=== PATIENT | female | born 1945 | race Caucasian/White ===

== ENCOUNTER 2020-08-09 08:27 | Outpatient (REF) | payer MEDICARE, MEDICAID, SELFPAY ==
[2020-08-09 10:11] LABS: MANUAL DIFF FLAG NO
[2020-08-09 10:25] LABS: Basophils Percent Auto 0.7 % (0-2); Eosinophils Absolute Auto 0.1 X10*3/uL (0.0-0.4); Hematocrit 32.7 % (37-47); Hemoglobin 10.3 g/dl (12.0-16.0); Imm Gran Abs Auto 0.01 X10*3/uL (0.00-0.03); Imm Gran Pct Auto 0.2 % (0.0-0.4); Lymphocytes Absolute Auto 0.9 X10*3/uL (1.2-4.9); Lymphocytes Percent Auto 20.3 % (20-40); Mean Corpuscular HGB Conc 31.5 g/dl (31.0-35.0); Mean Corpuscular Hemoglobin 29.6 pg (27.0-33.0); Mean Platelet Volume 9.8 fL (9.4-12.3); Monocytes Absolute Auto 0.6 X10*3/uL (0.1-1.2); Monocytes Percent Auto 12.8 % (2-11); Neutrophils Absolute Auto 2.7 X10*3/uL (2.0-8.3); Platelet Count 245 X10*3/uL (160-400); Red Blood Count 3.48 X10*6/uL (4.20-5.50); Red Cell Distribution Width 15.1 % (11.0-16.0); White Blood Count 4.3 X10*3/uL (4.8-10.8)
[2020-08-09 10:26] LABS: Estimated Average Glucose 151 mg/dL; Hemoglobin A1c % 6.9 %
[2020-08-09 10:50] LABS: Alanine Aminotransferase 12 U/L (0-31); Albumin Level 3.8 g/dL (3.5-5.0); Alkaline Phosphatase 72 U/L (39-117); Anion Gap 14 (12-20); Aspartate Amino Transferase 13 U/L (5-31); Bilirubin Total 0.5 mg/dL (0.0-1.0); Blood Urea Nitrogen 32 mg/dL (9-16); Calcium 8.4 mg/dL (8.4-10.2); Carbon Dioxide 23 mmol/L (22-29); Chloride 107 mmol/L (96-108); Estimated Glomerular Filt Rate 27; Glucose Random 163 mg/dL (60-115); Potassium 4.2 mmol/l (3.3-5.1); Sodium 140 mmol/L (135-145); Total Protein 6.7 g/dL (6.5-8.0)
[2020-08-09 11:34] LABS: Creatinine Urine 109.71 mg/dL; Microalbum/Creatinine Ratio Ur 29.1 ug/mg cr
== END 2020-08-09 08:28 | disposition home or self-care (01) ==
LOC: HO.10HDL 08:27
PROVIDERS: Visit Provider Internal Medicine
DX: E11.9 Type 2 diabetes mellitus without complications (principal); D64.9 Anemia, unspecified; I25.10 Atherosclerotic heart disease of native coronary artery without angina pectoris
CPT/HCPCS: 36415; 80053; 82043; 83036; 85025

== ENCOUNTER 2020-08-27 10:03 | Outpatient (REF) | payer MEDICARE, MEDICAID, SELFPAY ==
[2020-08-27 10:26] LABS: MANUAL DIFF FLAG NO
[2020-08-27 10:32] LABS: Basophils Percent Auto 0.6 % (0-2); Eosinophils Absolute Auto 0.1 X10*3/uL (0.0-0.4); Eosinophils Percent Auto 2.8 % (0-4); Hematocrit 34.3 % (37-47); Hemoglobin 10.9 g/dl (12.0-16.0); Imm Gran Abs Auto 0.01 X10*3/uL (0.00-0.03); Imm Gran Pct Auto 0.2 % (0.0-0.4); Lymphocytes Percent Auto 19.1 % (20-40); Mean Corpuscular HGB Conc 31.8 g/dl (31.0-35.0); Mean Corpuscular Hemoglobin 29.9 pg (27.0-33.0); Mean Corpuscular Volume 94.2 fL (80-98); Mean Platelet Volume 9.3 fL (9.4-12.3); Monocytes Absolute Auto 0.6 X10*3/uL (0.1-1.2); Monocytes Percent Auto 10.8 % (2-11); Neutrophils Absolute Auto 3.4 X10*3/uL (2.0-8.3); Neutrophils Percent Auto 66.5 % (45-73); Platelet Count 251 X10*3/uL (160-400); Red Blood Count 3.64 X10*6/uL (4.20-5.50); Red Cell Distribution Width 15.1 % (11.0-16.0); White Blood Count 5.1 X10*3/uL (4.8-10.8)
[2020-08-27 10:55] LABS: Anion Gap 14 (12-20); Blood Urea Nitrogen 25 mg/dL (9-16); Calcium 8.3 mg/dL (8.4-10.2); Carbon Dioxide 24 mmol/L (22-29); Chloride 108 mmol/L (96-108); Estimated Glomerular Filt Rate 29; Glucose Fasting 157 mg/dL (60-99); Potassium 4.3 mmol/l (3.3-5.1); Sodium 142 mmol/L (135-145)
[2020-08-27 11:11] LABS: Estimated Average Glucose 148 mg/dL; Hemoglobin A1C 149.1517 umol/L; Hemoglobin A1c % 6.8 %
== END 2020-08-27 10:04 | disposition home or self-care (01) ==
LOC: HO.10HDL 10:03
PROVIDERS: Visit Provider Internal Medicine
DX: E11.22 Type 2 diabetes mellitus with diabetic chronic kidney disease (principal); D64.9 Anemia, unspecified; I12.9 Hypertensive chronic kidney disease with stage 1 through stage 4 chronic kidney disease, or unspecified chronic kidney disease; N18.9 Chronic kidney disease, unspecified; I25.10 Atherosclerotic heart disease of native coronary artery without angina pectoris
CPT/HCPCS: 36415; 80048; 83036; 85025

== ENCOUNTER → 2020-08-28 14:17 | Outpatient (BNVA) | payer MEDICARE, MEDICAID, SELFPAY | PROVIDERS: PCP Internal Medicine; Referring Provider Internal Medicine; Visit Provider Internal Medicine | DX: J43.9 Emphysema, unspecified (principal); R09.02 Hypoxemia | CPT/HCPCS: 99212 ==

== ENCOUNTER 2020-09-14 07:46 | Outpatient (REF) | payer MEDICARE, MEDICAID, SELFPAY ==
--- NOTE | 2020-09-14 07:50 | MM_ITS ---
EXAMINATION: MM SCREENING DIGITAL BREAST TOMOSYNTHESIS, BILATERAL CLINICAL INFORMATION: Screening. Asymptomatic. The lifetime risk of breast cancer based on the Tyrer-Cuzick Model is 8%. COMPARISON: Mammography: 09/09/2019, 08/04/2018 TECHNIQUE: Digital breast tomosynthesis is performed in both the craniocaudal and mediolateral oblique views along with computer-aided detection (CAD). Synthesized 2D images are generated from the tomosynthesis. FINDINGS: There are scattered areas of fibroglandular density (ACR BI-RADS breast composition Category b). There are no significant masses, abnormal calcifications, or other abnormalities. Skin contours are smooth. No significant changes. MM/MM tomosynthesis screening BI IMPRESSION: No mammographic evidence of malignancy. ASSESSMENT: BI-RADS 1: Negative RECOMMENDATION: Routine annual mammography screening. This patient's information was entered into a reminder system with a target due date for their next mammogram.
== END 2020-09-14 07:47 | disposition home or self-care (01) ==
LOC: HO.MAMMO 07:46
PROVIDERS: PCP Internal Medicine; Visit Provider Internal Medicine
DX: Z12.31 Encounter for screening mammogram for malignant neoplasm of breast (principal)
CPT/HCPCS: 77063; 77067

== ENCOUNTER 2020-12-02 11:42 | Outpatient (REF) | payer MEDICARE, MEDICAID, SELFPAY ==
[2020-12-02 13:52] LABS: MANUAL DIFF FLAG NO
[2020-12-02 13:59] LABS: Basophils Absolute Auto 0.1 X10*3/uL (0.0-0.2); Basophils Percent Auto 0.8 % (0-2); Eosinophils Absolute Auto 0.1 X10*3/uL (0.0-0.4); Eosinophils Percent Auto 1.9 % (0-4); Hematocrit 36.5 % (37-47); Hemoglobin 11.6 g/dl (12.0-16.0); Imm Gran Abs Auto 0.02 X10*3/uL (0.00-0.03); Imm Gran Pct Auto 0.3 % (0.0-0.4); Lymphocytes Absolute Auto 1.1 X10*3/uL (1.2-4.9); Lymphocytes Percent Auto 17.8 % (20-40); Mean Corpuscular HGB Conc 31.8 g/dl (31.0-35.0); Mean Corpuscular Hemoglobin 29.7 pg (27.0-33.0); Mean Corpuscular Volume 93.6 fL (80-98); Mean Platelet Volume 9.9 fL (9.4-12.3); Monocytes Absolute Auto 0.6 X10*3/uL (0.1-1.2); Monocytes Percent Auto 8.8 % (2-11); Neutrophils Absolute Auto 4.4 X10*3/uL (2.0-8.3); Neutrophils Percent Auto 70.4 % (45-73); Platelet Count 255 X10*3/uL (160-400); Red Cell Distribution Width 13.8 % (11.0-16.0); White Blood Count 6.2 X10*3/uL (4.8-10.8)
[2020-12-02 14:35] LABS: Estimated Average Glucose 220 mg/dL; Hemoglobin A1c % 9.3 %
[2020-12-02 14:39] LABS: Alanine Aminotransferase 15 U/L (0-31); Albumin Level 3.8 g/dL (3.5-5.0); Alkaline Phosphatase 95 U/L (39-117); Anion Gap 14 (12-20); Aspartate Amino Transferase 19 U/L (5-31); Bilirubin Total 0.3 mg/dL (0.0-1.0); Blood Urea Nitrogen 22 mg/dL (9-16); Calcium 9.2 mg/dL (8.4-10.2); Carbon Dioxide 23 mmol/L (22-29); Chloride 107 mmol/L (96-108); Estimated Glomerular Filt Rate 31; Glucose Random 196 mg/dL (60-115); Potassium 4.9 mmol/L (3.3-5.1); Sodium 139 mmol/L (135-145); Total Protein 7.1 g/dL (6.5-8.0)
== END 2020-12-02 11:43 | disposition home or self-care (01) ==
LOC: HO.10HDL 11:42
PROVIDERS: Visit Provider Internal Medicine
DX: E11.22 Type 2 diabetes mellitus with diabetic chronic kidney disease (principal); I12.9 Hypertensive chronic kidney disease with stage 1 through stage 4 chronic kidney disease, or unspecified chronic kidney disease; N18.9 Chronic kidney disease, unspecified; I25.10 Atherosclerotic heart disease of native coronary artery without angina pectoris
CPT/HCPCS: 36415; 80053; 83036; 85025

== ENCOUNTER 2021-01-06 11:11 | Outpatient (REF) | payer MEDICARE, MEDICAID, SELFPAY ==
[2021-01-06 12:29] LABS: Anion Gap 14 (12-20); Blood Urea Nitrogen 23 mg/dL (9-16); Calcium 8.7 mg/dL (8.4-10.2); Carbon Dioxide 22 mmol/L (22-29); Chloride 104 mmol/L (96-108); Estimated Glomerular Filt Rate 29; Glucose Fasting 286 mg/dL (60-99); Potassium 5.1 mmol/L (3.3-5.1); Sodium 135 mmol/L (135-145)
== END 2021-01-06 11:12 | disposition home or self-care (01) ==
LOC: HO.10HDL 11:11
PROVIDERS: Visit Provider Internal Medicine
DX: R79.89 Other specified abnormal findings of blood chemistry (principal)
CPT/HCPCS: 36415; 80048

== ENCOUNTER → 2021-01-07 10:35 | Outpatient (BNVA) | payer MEDICARE, MEDICAID, SELFPAY | PROVIDERS: PCP Internal Medicine; Visit Provider Internal Medicine | DX: J43.9 Emphysema, unspecified (principal); R09.02 Hypoxemia; Z87.891 Personal history of nicotine dependence | CPT/HCPCS: 99212 ==

== ENCOUNTER → 2021-01-17 11:01 | Outpatient (BNVA) | payer MEDICARE, MEDICAID, SELFPAY | PROVIDERS: PCP Internal Medicine; Visit Provider Surgery | DX: C34.90 Malignant neoplasm of unspecified part of unspecified bronchus or lung (principal) | CPT/HCPCS: 99212 ==

== ENCOUNTER 2021-02-25 08:33 | Outpatient (REF) | payer MEDICARE, MEDICAID, SELFPAY ==
[2021-02-25 10:20] LABS: MANUAL DIFF FLAG NO
[2021-02-25 10:24] LABS: Basophils Percent Auto 0.7 % (0-2); Eosinophils Absolute Auto 0.1 X10*3/uL (0.0-0.4); Eosinophils Percent Auto 1.6 % (0-4); Hemoglobin 11.7 g/dl (12.0-16.0); Imm Gran Abs Auto 0.03 X10*3/uL (0.00-0.03); Imm Gran Pct Auto 0.5 % (0.0-0.4); Lymphocytes Absolute Auto 1.2 X10*3/uL (1.2-4.9); Lymphocytes Percent Auto 21.4 % (20-40); Mean Corpuscular HGB Conc 32.5 g/dl (31.0-35.0); Mean Corpuscular Hemoglobin 30.1 pg (27.0-33.0); Mean Corpuscular Volume 92.5 fL (80-98); Monocytes Absolute Auto 0.6 X10*3/uL (0.1-1.2); Monocytes Percent Auto 11.4 % (2-11); Neutrophils Absolute Auto 3.6 X10*3/uL (2.0-8.3); Neutrophils Percent Auto 64.4 % (45-73); Platelet Count 257 X10*3/uL (160-400); Red Blood Count 3.89 X10*6/uL (4.20-5.50); Red Cell Distribution Width 14.1 % (11.0-16.0); White Blood Count 5.6 X10*3/uL (4.8-10.8)
[2021-02-25 10:32] LABS: Estimated Average Glucose 280 mg/dL; Hemoglobin A1c % 11.4 %
[2021-02-25 10:56] LABS: Alanine Aminotransferase 15 U/L (0-31); Albumin Level 3.7 g/dL (3.5-5.0); Alkaline Phosphatase 133 U/L (39-117); Anion Gap 15 (12-20); Aspartate Amino Transferase 16 U/L (5-31); Bilirubin Total 0.3 mg/dL (0.0-1.0); Blood Urea Nitrogen 29 mg/dL (9-16); Calcium 9.1 mg/dL (8.4-10.2); Carbon Dioxide 23 mmol/L (22-29); Chloride 103 mmol/L (96-108); Estimated Glomerular Filt Rate 23; Glucose Fasting 438 mg/dL (60-99); Potassium 4.6 mmol/L (3.3-5.1); Sodium 136 mmol/L (135-145); Total Protein 6.8 g/dL (6.5-8.0)
[2021-02-25 10:58] LABS: Creatinine Urine 55.51 mg/dL; Microalbum/Creatinine Ratio Ur 25.2 ug/mg cr
== END 2021-02-25 08:34 | disposition home or self-care (01) ==
LOC: HO.10HDL 08:33
PROVIDERS: Visit Provider Internal Medicine
DX: I12.9 Hypertensive chronic kidney disease with stage 1 through stage 4 chronic kidney disease, or unspecified chronic kidney disease (principal); N18.9 Chronic kidney disease, unspecified; E11.22 Type 2 diabetes mellitus with diabetic chronic kidney disease; J44.9 Chronic obstructive pulmonary disease, unspecified
CPT/HCPCS: 36415; 80053; 82043; 83036; 85025

== ENCOUNTER 2021-06-18 10:26 | Outpatient (REF) | payer MEDICARE, MEDICAID, SELFPAY ==
[2021-06-18 14:34] LABS: Anion Gap 18 (12-20); Blood Urea Nitrogen 16 mg/dL (9-16); Calcium 8.8 mg/dL (8.4-10.2); Carbon Dioxide 19 mmol/L (22-29); Chloride 108 mmol/L (96-108); Estimated Glomerular Filt Rate 33; Glucose Random 247 mg/dL (60-115); Potassium 4.5 mmol/L (3.3-5.1); Sodium 140 mmol/L (135-145)
== END 2021-06-18 10:27 | disposition home or self-care (01) ==
LOC: HO.10HDL 10:26
PROVIDERS: Visit Provider Nurse Practitioner Family
DX: I25.10 Atherosclerotic heart disease of native coronary artery without angina pectoris (principal)
CPT/HCPCS: 36415; 80048

== ENCOUNTER → 2021-07-17 10:10 | Outpatient (BNVA) | payer MEDICARE, MEDICAID, SELFPAY | PROVIDERS: PCP Internal Medicine; Visit Provider Internal Medicine | DX: R09.02 Hypoxemia (principal); C34.10 Malignant neoplasm of upper lobe, unspecified bronchus or lung; J44.9 Chronic obstructive pulmonary disease, unspecified | CPT/HCPCS: 99212 ==

== ENCOUNTER 2021-08-05 11:23 | Outpatient (REF) | payer MEDICARE, MEDICAID, SELFPAY ==
[2021-08-05 13:56] LABS: MANUAL DIFF FLAG NO
[2021-08-05 14:00] LABS: Basophils Percent Auto 0.6 % (0-2); Eosinophils Absolute Auto 0.2 X10*3/uL (0.0-0.4); Eosinophils Percent Auto 2.6 % (0-4); Hematocrit 39.7 % (37-47); Hemoglobin 12.7 g/dl (12.0-16.0); Imm Gran Abs Auto 0.02 X10*3/uL (0.00-0.03); Imm Gran Pct Auto 0.3 % (0.0-0.4); Lymphocytes Absolute Auto 1.5 X10*3/uL (1.2-4.9); Mean Corpuscular Hemoglobin 30.7 pg (27.0-33.0); Mean Corpuscular Volume 95.9 fL (80-98); Mean Platelet Volume 9.8 fL (9.4-12.3); Monocytes Absolute Auto 0.7 X10*3/uL (0.1-1.2); Monocytes Percent Auto 11.4 % (2-11); Neutrophils Absolute Auto 3.8 X10*3/uL (2.0-8.3); Neutrophils Percent Auto 61.1 % (45-73); Platelet Count 278 X10*3/uL (160-400); Red Blood Count 4.14 X10*6/uL (4.20-5.50); Red Cell Distribution Width 14.1 % (11.0-16.0); White Blood Count 6.2 X10*3/uL (4.8-10.8)
[2021-08-05 14:14] LABS: Estimated Average Glucose 232 mg/dL; Hemoglobin A1c % 9.7 %
[2021-08-05 14:16] LABS: Alanine Aminotransferase 15 U/L (0-31); Albumin Level 3.9 g/dL (3.5-5.0); Alkaline Phosphatase 91 U/L (39-117); Anion Gap 16 (12-20); Aspartate Amino Transferase 16 U/L (5-31); Bilirubin Total 0.3 mg/dL (0.0-1.0); Blood Urea Nitrogen 16 mg/dL (9-16); Calcium 9.2 mg/dL (8.4-10.2); Carbon Dioxide 21 mmol/L (22-29); Chloride 106 mmol/L (96-108); Estimated Glomerular Filt Rate 35; Glucose Random 230 mg/dL (60-115); Potassium 4.7 mmol/L (3.3-5.1); Sodium 138 mmol/L (135-145); Total Protein 7.2 g/dL (6.5-8.0)
[2021-08-05 14:25] LABS: Creatinine Urine 91.44 mg/dL; Microalbum/Creatinine Ratio Ur 53.5 ug/mg cr
== END 2021-08-05 11:24 | disposition home or self-care (01) ==
LOC: HO.10HDL 11:23
PROVIDERS: Absent Provider Nurse Practitioner Family; Visit Provider Internal Medicine
DX: I25.10 Atherosclerotic heart disease of native coronary artery without angina pectoris (principal); I13.0 Hypertensive heart and chronic kidney disease with heart failure and stage 1 through stage 4 chronic kidney disease, or unspecified chronic kidney disease; E11.22 Type 2 diabetes mellitus with diabetic chronic kidney disease; I50.9 Heart failure, unspecified; N18.9 Chronic kidney disease, unspecified
CPT/HCPCS: 36415; 80053; 82043; 83036; 85025

== ENCOUNTER → 2021-08-08 10:21 | Outpatient (BNVA) | payer MEDICARE, MEDICAID, SELFPAY | PROVIDERS: PCP Internal Medicine; Visit Provider Surgery | DX: C34.12 Malignant neoplasm of upper lobe, left bronchus or lung (principal); Z79.899 Other long term (current) drug therapy; Z92.21 Personal history of antineoplastic chemotherapy; Z92.3 Personal history of irradiation | CPT/HCPCS: 99212 ==

== ENCOUNTER 2021-08-14 14:10 | Outpatient (REF) | payer MEDICARE, MEDICAID, SELFPAY ==
--- NOTE | ~2021-08-14 | US_ITS ---
EXAMINATION: US RETROPERITONEAL LIMITED (RENAL ONLY) CLINICAL INFORMATION: Chronic kidney disease. COMPARISON: None TECHNIQUE: Real-time imaging of the kidneys. FINDINGS: RIGHT KIDNEY: 11.5 x 5.2 x 3.9 cm (SAG x AP x TRV). The kidney is normal in size, contour, and echogenicity. Renal cortical thickness is normal. No renal calculi or hydronephrosis. There are prominent pyramids. An anechoic simple cyst is seen in midpole measuring 1.4 x 1.2 x 1.1 cm. LEFT KIDNEY: 9.0 x 4.3 x 3.7 cm (SAG x AP x TRV). The kidney is normal in size, contour, and echogenicity. Renal cortical thickness is normal. No renal calculi or hydronephrosis. A Bosniak type II cyst with septations is seen in midpole measuring 3.2 x 2.4 x 2.6 cm. US/US renal BI IMPRESSION: Prominent pyramids right kidney with an anechoic cyst. No echogenic stone or hydronephrosis. Bosniak type II complex cyst midpole left kidney. No echogenic stones or caliectasis.
== END 2021-08-14 14:11 | disposition home or self-care (01) ==
LOC: HO.US 14:10
PROVIDERS: PCP Internal Medicine; Visit Provider Psychiatry & Neurology Neurology
DX: N18.32 Chronic kidney disease, stage 3b (principal)
CPT/HCPCS: 76775

== ENCOUNTER 2021-09-25 10:09 | Outpatient (REF) | payer MEDICARE, MEDICAID, SELFPAY ==
--- NOTE | ~2021-09-25 | MM_ITS ---
EXAMINATION: MM SCREENING DIGITAL BREAST TOMOSYNTHESIS, BILATERAL CLINICAL INFORMATION: Screening. Asymptomatic. The lifetime risk of breast cancer based on the Tyrer-Cuzick Model is 7%. COMPARISON: Mammography: 09/14/2020, 09/09/2019, 08/04/2018 TECHNIQUE: Digital breast tomosynthesis is performed in both the craniocaudal and mediolateral oblique views along with computer-aided detection (CAD). Synthesized 2D images are generated from the tomosynthesis. FINDINGS: There are scattered areas of fibroglandular density (ACR BI-RADS breast composition Category b). There are no significant masses, abnormal calcifications, or other abnormalities. There is fine fibronodular parenchymal pattern similar to prior studies. No developing density. MM/MM tomosynthesis screening BI IMPRESSION: No mammographic evidence of malignancy. ASSESSMENT: BI-RADS 1: Negative RECOMMENDATION: Routine annual mammography screening. This patient's information was entered into a reminder system with a target due date for their next mammogram.
== END 2021-09-25 10:10 | disposition home or self-care (01) ==
LOC: HO.MAMMO 10:09
PROVIDERS: Visit Provider Internal Medicine
DX: Z12.31 Encounter for screening mammogram for malignant neoplasm of breast (principal)
CPT/HCPCS: 77063; 77067

== ENCOUNTER 2021-11-05 09:56 | Outpatient (REF) | payer MEDICARE, MEDICAID, SELFPAY ==
[2021-11-05 14:23] LABS: Estimated Average Glucose 240 mg/dL
[2021-11-05 14:24] LABS: Alanine Aminotransferase 17 U/L (0-31); Albumin Level 3.7 g/dL (3.5-5.0); Alkaline Phosphatase 105 U/L (39-117); Anion Gap 12 (12-20); Aspartate Amino Transferase 19 U/L (5-31); Bilirubin Total 0.5 mg/dL (0.0-1.0); Blood Urea Nitrogen 22 mg/dL (9-16); Calcium 9.3 mg/dL (8.4-10.2); Carbon Dioxide 24 mmol/L (22-29); Chloride 105 mmol/L (96-108); Estimated Glomerular Filt Rate 28; Glucose Random 277 mg/dL (60-115); Potassium 4.4 mmol/L (3.3-5.1); Sodium 137 mmol/L (135-145)
[2021-11-05 14:43] LABS: Creatinine Urine 55.75 mg/dL; Microalbum/Creatinine Ratio Ur 16.1 ug/mg cr
[2021-11-05 14:47] LABS: Vitamin D 25-OH Total 14.5 ng/mL (>30)
== END 2021-11-05 09:57 | disposition home or self-care (01) ==
LOC: HO.10HDL 09:56
PROVIDERS: Visit Provider Internal Medicine
DX: E11.22 Type 2 diabetes mellitus with diabetic chronic kidney disease (principal); N18.9 Chronic kidney disease, unspecified; I25.10 Atherosclerotic heart disease of native coronary artery without angina pectoris; E55.9 Vitamin D deficiency, unspecified
CPT/HCPCS: 36415; 80053; 82043; 82306; 83036

== ENCOUNTER → 2021-11-12 09:54 | Outpatient (BNVA) | payer MEDICARE, MEDICAID, SELFPAY | PROVIDERS: PCP Internal Medicine; Referring Provider Internal Medicine; Visit Provider Internal Medicine Cardiovascular Disease ==

== ENCOUNTER → 2021-11-14 13:47 | Outpatient (REF) | payer MEDICARE, MEDICAID, SELFPAY ==
--- NOTE | 2021-11-14 13:57 | CA_ITS ---
Transthoracic Echocardiogram Patient (Last, First, Middle): Anjana Silva R Gender: Female Date of : 1945 Age: 76 Procedure Date: 11/14/2021 Procedure Type: Transthoracic Echocardiogram Location: OP Height: 154.94 cm Weight: 73.03 kg BSA: 1.72 m2 Heart Rate: bpm BP: 120 / 80 mmHg Branch Retail Executive: MARIO Referring MD: Terell Macias MD Symptoms: I50.20 - Unspecified systolic (congestive) heart failure Study Quality: Fair Conclusions: - Normal left ventricular cavity size. There is mildly increased left ventricular wall thickness. The left ventricular systolic function is mild to moderately decreased. The visually estimated ejection fraction is between 35-40%. - The inferoseptal wall, inferior wall, inferolateral wall, and apical septum segment are akinetic. - Normal right ventricular cavity size and systolic function. Findings Left Ventricle Normal left ventricular cavity size. There is mildly increased left ventricular wall thickness. The left ventricular systolic function is mild to moderately decreased. The visually estimated ejection fraction is between 35-40%. There is no evidence of regional wall motion abnormalities. Abnormal diastolic function is noted. Spectral Doppler is indicative of an impaired relaxation filling pattern. E/E prime ratio is between 8 and 15 consistent with indeterminate filling pressures. Wall Motion Rest Echo Findings The inferoseptal wall, inferior wall, inferolateral wall, and apical septum segment are akinetic. Right Ventricle Normal right ventricular cavity size and systolic function. Atria The left atrium was not well visualized. Aortic Valve There is a normal trileaflet aortic valve. There is mild calcification of the aortic valve. There is no aortic valve stenosis. There is no aortic valve regurgitation. Mitral Valve The mitral valve appears normal. There is mild mitral valve regurgitation. There is no mitral valve stenosis. Pulmonic Valve The pulmonic valve was not well visualized. Tricuspid Valve Normal tricuspid valve structure and function. There is trace tricuspid valve regurgitation. Normal right atrial pressure. There is no evidence of pulmonary hypertension. Great Vessels All visible segments of the aorta are normal in size. Venous The inferior vena cava is normal in size and collapses less than 50% with inspiration. Pericardium/Pleural There is no evidence of pericardial effusion. Prior Study Comparison No significant change compared to prior study dated: 01/19/2018. Measurements 2D Linear Measurements IVSd: 1.10 0.6-0.9/0.6-1.0 cm LVIDd: 5.53 3.9-5.3/4.2-5.9 cm LVIDd Index: 3.22 2.4-3.2/2.2-3.1 cm/m2 LVIDs: 4.64 2.0-3.6 cm LVPWd: 1.04 0.7-1.1 cm Ao Root: 3.00 2.1-3.5 cm LA Diam: 3.60 2.7-3.8/3.0-4.0 cm LAIDs Index: 2.09 1.5-2.3 cm/m2 LV Mass: 293.39 67-162/88-224 g LV Mass Index: 170.58 43-95/49-115 g/m2 LVOT Diam: 2.00 3.0+(-)1.3 cm 2D Systolic Function EF 4C: 33.50 >55% EF 2C: 34.60 >55% EF BiP: 33.90 >55% Mitral Valve MV Pk E: 0.52 MV PK A: 1.05 MV Decel Time: 153.00 E/A: 0.50 E'Lateral: 4.35 E'Medial: 3.26 E/E' Med: 15.90 E/E' Lat: 11.90 PHT: 45.00 MVA PHT: 4.89 Decel [place]: 3.39 Aortic Valve AoV Pk Ethan: 1.35 AoV Mn Ethan: 1.04 AoV VTI: 0.29 AoV Pk Grad: 7.00 Aov Mn Grad: 5.00 RANDALL Cont.VTI: 1.72 LVOT LVOT Pk Ethan: 0.81 LVOT Mn Ethan: 0.60 LVOT VTI: 0.16 LVOT Pk Grad: 3.00 LVOT Mn Grad: 2.00 LVOT Diam: 2.00 LVOT Area: 3.14 Diastolic Function MV Pk E: 0.52 MV Pk A: 1.05 E/A: 0.50 E'Medial: 3.26 E/E' Med: 15.90 E' Laterial: 4.35 E/E' Lat: 11.90 Right Ventricle TAPSE (mm): 18.80 TVS' Ethan: 12.20 Tricuspid Valve TR Pk Ethan: 2.01 TR Pk Grad: 16.00 RA Press: 3.00 RVSP: 19.00 Great Vessels Aorta Ao Root-2D: 3.00 2.0-3.7 cm Ao Asc: 3.10 2.1-3.4 cm Ao Arch: 2.60 Updated in Other Vendor System with Status of Final Josh Cain MD electronically signed on 11/15/2021 7:14:35 PM with status of Final
== END ==
LOC: HO.CARD 13:47
PROVIDERS: PCP Internal Medicine; Visit Provider Internal Medicine Cardiovascular Disease
DX: I50.20 Unspecified systolic (congestive) heart failure (principal); I25.10 Atherosclerotic heart disease of native coronary artery without angina pectoris; R06.02 Shortness of breath
CPT/HCPCS: 93005; 93306; 99202

== ENCOUNTER → 2021-11-18 08:07 | Outpatient (REF) | payer MEDICARE, MEDICAID, SELFPAY ==
--- NOTE | ~2021-11-18 | NM_ITS ---
Lexiscan Myocardial perfusion study Indication: Congestive heart failure, history of coronary disease and myocardial infarction Technique: The patient was brought in for a Lexiscan perfusion study on 11/18/2021 and was injected 0.4 mg of Lexiscan intravenously. Within a minute of this injection 25 mCi of sestamibi was given intravenously. Images were obtained using the SPECT gamma camera interlaced with the gating device. Images were obtained in supine position. Resting perfusion study was performed on 11/19/2021. Patient was administered 25 mCi of sestamibi intravenously at rest. Images were then obtained in supine position. Total DLP 99mGy-cm. Images were processed with the software and compared side to side in short axis, horizontal long axis and vertical long axis views. Findings: Raw acquisition was reviewed. The stress perfusion study showed absent tracer uptake in the inferior wall. No significant improvement with CT attenuation correction. The gated study shows diminished LV systolic function with calculated LVEF of 36%. LV cavity is normal in size. The gated study shows inferior akinesis. Resting study shows absent tracer uptake along the inferior wall. Gating at rest reveals inferior akinesis and ejection fraction at 47%. The findings are consistent with fixed inferior defect that is suggestive of transmural infarct. No reversible defects. NM/NM uriel perf SPECT rest & str Impression: 1. Myocardial perfusion imaging study shows old inferior wall infarction without any clear ischemia. 2. Gated LVEF is 36% during stress and 47% during rest. 3. Transient ischemic dilatation not present. EKG component of the test reported separately.
--- NOTE | 2021-11-18 08:11 | CA_ITS ---
Acquisition Time: 2021-11-18 09:18:46 Total Exercise Time: 00:02:00 Test Indications: [place], CARDIOMYOPATHY Medications: SEE CHART Protocol: LEXISCAN Max HR: 102 BPM 70% of Pred: 144 BPM Max BP: 150/060 mmHG Max Work Load: 1.0 METS Pharmacological stress test with Lexiscan injection, while sitting and kicking her legs, without anginal symptoms, with frequent isolated PACs and occassional PVCs, with normotensive response to injection, with nondiagnostic EKG for ischemia. In recovery she reported nausea that was treated with Aminophylline 75mg IVP to reverse Lexiscan with resolution of symptom. Nuclear images pending. Test reviewed with Dr Macias. Referred By: Terell Macias Overread By: GYPSY CUEVAS
== END ==
LOC: HO.CARD 08:07
PROVIDERS: PCP Internal Medicine; Visit Provider Internal Medicine Cardiovascular Disease
DX: I50.20 Unspecified systolic (congestive) heart failure (principal)
CPT/HCPCS: 78452; 93017; A9500; J0280; J2785

== ENCOUNTER 2021-12-03 07:54 | Outpatient (REF) | payer MEDICARE, MEDICAID, SELFPAY ==
[2021-12-03 13:51] LABS: Anion Gap 12 (12-20); Carbon Dioxide 26 mmol/L (22-29); Chloride 106 mmol/L (96-108); Estimated Glomerular Filt Rate 34; Potassium 4.2 mmol/L (3.3-5.1); Sodium 140 mmol/L (135-145)
[2021-12-03 15:05] LABS: Blood Urea Nitrogen 15 mg/dL (9-16); Calcium 9.2 mg/dL (8.4-10.2)
== END 2021-12-03 07:55 | disposition home or self-care (01) ==
LOC: HO.10HDL 07:54
PROVIDERS: Visit Provider Internal Medicine Hypertension Specialist
DX: N18.4 Chronic kidney disease, stage 4 (severe) (principal)
CPT/HCPCS: 36415; 80051; 82310; 82565; 84520

== ENCOUNTER → 2021-12-22 14:44 | Outpatient (BNVA) | payer MEDICARE, MEDICAID, SELFPAY | PROVIDERS: PCP Internal Medicine; Referring Provider Internal Medicine; Visit Provider Internal Medicine Cardiovascular Disease | DX: I25.10 Atherosclerotic heart disease of native coronary artery without angina pectoris (principal); I50.20 Unspecified systolic (congestive) heart failure; I25.2 Old myocardial infarction; Z79.899 Other long term (current) drug therapy | CPT/HCPCS: 99212 ==

== ENCOUNTER → 2022-01-06 09:23 | Outpatient (BNVA) | payer MEDICARE, MEDICAID, SELFPAY | PROVIDERS: PCP Internal Medicine; Visit Provider Internal Medicine | DX: J43.9 Emphysema, unspecified (principal); J44.9 Chronic obstructive pulmonary disease, unspecified; R09.02 Hypoxemia; C34.12 Malignant neoplasm of upper lobe, left bronchus or lung | CPT/HCPCS: 99212 ==

== ENCOUNTER → 2022-01-09 10:49 | Outpatient (BNVA) | payer MEDICARE, MEDICAID, SELFPAY | PROVIDERS: PCP Internal Medicine; Visit Provider Surgery | DX: C34.12 Malignant neoplasm of upper lobe, left bronchus or lung (principal); Z79.899 Other long term (current) drug therapy; Z79.82 Long term (current) use of aspirin | CPT/HCPCS: 99212 ==

== ENCOUNTER 2022-02-04 09:59 | Outpatient (REF) | payer MEDICARE, MEDICAID, SELFPAY ==
[2022-02-04 10:55] LABS: Eosinophils Absolute Auto 0.1 X10*3/uL (0.0-0.4); Eosinophils Percent Auto 1.9 % (0-4); Imm Gran Abs Auto 0.01 X10*3/uL (0.00-0.03); Imm Gran Pct Auto 0.2 % (0.0-0.4); MANUAL DIFF FLAG SCAN; Monocytes Absolute Auto 0.6 X10*3/uL (0.1-1.2); PLT CLUMP 1; SCAN SMEAR FLAG 1
[2022-02-04 10:57] LABS: Basophils Absolute Auto 0.1 X10*3/uL (0.0-0.2); Basophils Percent Auto 0.9 % (0-2); Hematocrit 39.9 % (37.0-47.0); Hemoglobin 12.5 g/dl (12.0-16.0); Lymphocytes Absolute Auto 1.4 X10*3/uL (1.2-4.9); Lymphocytes Percent Auto 25.6 % (20-40); Mean Corpuscular HGB Conc 31.3 g/dl (31.0-35.0); Mean Corpuscular Hemoglobin 30.3 pg (27.0-33.0); Mean Corpuscular Volume 96.8 fL (80.0-98.0); Mean Platelet Volume 10.8 fL (9.4-12.3); Monocytes Percent Auto 11.7 % (2-11); Neutrophils Absolute Auto 3.2 x10*3/uL (2.0-8.3); Neutrophils Percent Auto 59.7 % (45-73); Red Blood Count 4.12 X10*6/uL (4.20-5.50); Red Cell Distribution Width 13.6 % (11.0-16.0)
[2022-02-04 11:39] LABS: Platelet Count 216 X10*3/uL (160-400); SLIDE REVIEW VERIFIED; White Blood Count 5.3 X10*3/uL (4.8-10.8)
[2022-02-04 12:05] LABS: Troponin-I High Sensitivity 6.3 ng/L (<3.5-17.0)
[2022-02-04 12:12] LABS: Estimated Average Glucose 243 mg/dL; Hemoglobin A1c % 10.1 %
[2022-02-04 12:19] LABS: Alanine Aminotransferase 18 U/L (0-31); Albumin Level 3.6 g/dL (3.5-5.0); Alkaline Phosphatase 104 U/L (39-117); Anion Gap 16 (12-20); Aspartate Amino Transferase 22 U/L (5-31); Bilirubin Total 0.7 mg/dL (0.0-1.0); Blood Urea Nitrogen 24 mg/dL (9-16); Calcium 9.1 mg/dL (8.4-10.2); Carbon Dioxide 21 mmol/L (22-29); Chloride 108 mmol/L (96-108); Estimated Glomerular Filt Rate 30; Glucose Random 186 mg/dL (60-115); Potassium 4.3 mmol/L (3.3-5.1); Sodium 141 mmol/L (135-145); Total Protein 6.9 g/dL (6.5-8.0)
== END 2022-02-04 10:00 | disposition home or self-care (01) ==
LOC: HO.10HDL 09:59
PROVIDERS: Visit Provider Internal Medicine
DX: I25.10 Atherosclerotic heart disease of native coronary artery without angina pectoris (principal); E11.9 Type 2 diabetes mellitus without complications; N18.9 Chronic kidney disease, unspecified
CPT/HCPCS: 36415; 80053; 83036; 84484; 85025

== ENCOUNTER 2022-05-13 10:44 | Outpatient (REF) | payer MEDICARE, MEDICAID, SELFPAY ==
[2022-05-13 13:37] LABS: MANUAL DIFF FLAG NO
[2022-05-13 13:39] LABS: Basophils Percent Auto 0.7 % (0-2); Eosinophils Absolute Auto 0.2 X10*3/uL (0.0-0.4); Eosinophils Percent Auto 3.8 % (0-4); Hemoglobin 11.6 g/dl (12.0-16.0); Imm Gran Abs Auto 0.02 X10*3/uL (0.00-0.03); Imm Gran Pct Auto 0.3 % (0.0-0.4); Lymphocytes Absolute Auto 1.4 X10*3/uL (1.2-4.9); Lymphocytes Percent Auto 23.1 % (20-40); Mean Corpuscular HGB Conc 32.2 g/dl (31.0-35.0); Mean Corpuscular Hemoglobin 30.9 pg (27.0-33.0); Mean Platelet Volume 9.9 fL (9.4-12.3); Monocytes Absolute Auto 0.8 X10*3/uL (0.1-1.2); Monocytes Percent Auto 12.9 % (2-11); Neutrophils Absolute Auto 3.6 x10*3/uL (2.0-8.3); Neutrophils Percent Auto 59.2 % (45-73); Platelet Count 279 X10*3/uL (160-400); Red Blood Count 3.75 X10*6/uL (4.20-5.50); Red Cell Distribution Width 13.8 % (11.0-16.0); White Blood Count 6.1 X10*3/uL (4.8-10.8)
[2022-05-13 13:53] LABS: Estimated Average Glucose 154 mg/dL
[2022-05-13 13:56] LABS: Alanine Aminotransferase 15 U/L (0-31); Albumin Level 3.7 g/dL (3.5-5.0); Alkaline Phosphatase 85 U/L (39-117); Anion Gap 14 (12-20); Aspartate Amino Transferase 14 U/L (5-31); Bilirubin Total 0.5 mg/dL (0.0-1.0); Blood Urea Nitrogen 23 mg/dL (9-16); Calcium 9.2 mg/dL (8.4-10.2); Carbon Dioxide 22 mmol/L (22-29); Chloride 109 mmol/L (96-108); Estimated Glomerular Filt Rate 32; Glucose Random 141 mg/dL (60-115); Potassium 4.5 mmol/L (3.3-5.1); Sodium 140 mmol/L (135-145); Total Protein 6.8 g/dL (6.5-8.0)
[2022-05-13 14:40] LABS: Creatinine Urine 33.22 mg/dL
== END 2022-05-13 10:45 | disposition home or self-care (01) ==
LOC: HO.10HDL 10:44
PROVIDERS: Visit Provider Internal Medicine
DX: I12.9 Hypertensive chronic kidney disease with stage 1 through stage 4 chronic kidney disease, or unspecified chronic kidney disease (principal); N18.9 Chronic kidney disease, unspecified; E11.22 Type 2 diabetes mellitus with diabetic chronic kidney disease; I25.10 Atherosclerotic heart disease of native coronary artery without angina pectoris
CPT/HCPCS: 36415; 80053; 82043; 83036; 85025

== ENCOUNTER → 2022-06-23 09:53 | Outpatient (BNVA) | payer MEDICARE, MEDICAID, SELFPAY | PROVIDERS: PCP Internal Medicine; Referring Provider Internal Medicine; Visit Provider Internal Medicine Cardiovascular Disease | DX: I50.20 Unspecified systolic (congestive) heart failure (principal); I25.10 Atherosclerotic heart disease of native coronary artery without angina pectoris; Z79.899 Other long term (current) drug therapy | CPT/HCPCS: 99212 ==

== ENCOUNTER → 2022-07-13 09:37 | Outpatient (BNVA) | payer MEDICARE, MEDICAID, SELFPAY | PROVIDERS: PCP Internal Medicine; Visit Provider Internal Medicine | DX: R09.02 Hypoxemia (principal); J44.9 Chronic obstructive pulmonary disease, unspecified | CPT/HCPCS: 99212 ==

== ENCOUNTER → 2022-07-31 10:35 | Outpatient (BNVA) | payer MEDICARE, MEDICAID, SELFPAY | PROVIDERS: PCP Internal Medicine; Visit Provider Surgery | DX: C34.12 Malignant neoplasm of upper lobe, left bronchus or lung (principal) | CPT/HCPCS: 99212 ==

== ENCOUNTER 2022-08-12 11:59 | Outpatient (REF) | payer MEDICARE, MEDICAID, SELFPAY ==
[2022-08-12 14:10] LABS: MANUAL DIFF FLAG NO
[2022-08-12 14:16] LABS: Basophils Percent Auto 0.7 % (0-2); Eosinophils Absolute Auto 0.2 X10*3/uL (0.0-0.4); Eosinophils Percent Auto 2.9 % (0-4); Hematocrit 37.9 % (37.0-47.0); Hemoglobin 12.1 g/dl (12.0-16.0); Imm Gran Abs Auto 0.02 X10*3/uL (0.00-0.03); Imm Gran Pct Auto 0.3 % (0.0-0.4); Lymphocytes Absolute Auto 1.6 X10*3/uL (1.2-4.9); Mean Corpuscular HGB Conc 31.9 g/dl (31.0-35.0); Mean Corpuscular Hemoglobin 30.1 pg (27.0-33.0); Mean Corpuscular Volume 94.3 fL (80.0-98.0); Mean Platelet Volume 9.6 fL (9.4-12.3); Monocytes Absolute Auto 0.7 X10*3/uL (0.1-1.2); Monocytes Percent Auto 12.3 % (2-11); Neutrophils Absolute Auto 3.3 x10*3/uL (2.0-8.3); Neutrophils Percent Auto 56.8 % (45-73); Platelet Count 322 X10*3/uL (160-400); Red Blood Count 4.02 X10*6/uL (4.20-5.50); White Blood Count 5.9 X10*3/uL (4.8-10.8)
[2022-08-12 14:28] LABS: Alanine Aminotransferase 15 U/L (0-31); Albumin Level 3.8 g/dL (3.5-5.0); Alkaline Phosphatase 89 U/L (39-117); Anion Gap 19 (12-20); Aspartate Amino Transferase 17 U/L (5-31); Bilirubin Total 0.4 mg/dL (0.0-1.0); Blood Urea Nitrogen 20 mg/dL (9-16); Calcium 9.2 mg/dL (8.4-10.2); Carbon Dioxide 24 mmol/L (22-29); Chloride 104 mmol/L (96-108); Cholesterol 150 mg/dL; Estimated Glomerular Filt Rate 34; Glucose Fasting 116 mg/dL (60-99); HDL Cholesterol 35 mg/dL; LDL Cholesterol Calculated 84 mg/dl; Potassium 4.8 mmol/L (3.3-5.1); Sodium 142 mmol/L (135-145); Total Protein 7.2 g/dL (6.5-8.0); Triglycerides 158 mg/dL
[2022-08-12 14:29] LABS: Estimated Average Glucose 157 mg/dL; Hemoglobin A1c % 7.1 %
[2022-08-12 14:42] LABS: Creatinine Urine 32.52 mg/dL; Microalbumin Urine < 5.0 mg/L
== END 2022-08-12 12:00 | disposition home or self-care (01) ==
LOC: HO.10HDL 11:59
PROVIDERS: Visit Provider Internal Medicine
DX: I25.10 Atherosclerotic heart disease of native coronary artery without angina pectoris (principal); E78.00 Pure hypercholesterolemia, unspecified; I12.9 Hypertensive chronic kidney disease with stage 1 through stage 4 chronic kidney disease, or unspecified chronic kidney disease; E11.22 Type 2 diabetes mellitus with diabetic chronic kidney disease; N18.9 Chronic kidney disease, unspecified
CPT/HCPCS: 36415; 80053; 80061; 82043; 83036; 85025

== ENCOUNTER 2022-09-28 08:58 | Outpatient (REF) | payer MEDICARE, MEDICAID, SELFPAY ==
--- NOTE | ~2022-09-28 | MM_ITS ---
EXAMINATION: MM SCREENING DIGITAL BREAST TOMOSYNTHESIS, BILATERAL CLINICAL INFORMATION: Screening. Asymptomatic. Family history breast cancer, mother. The lifetime risk of breast cancer based on the Tyrer-Cuzick Model is 7%. COMPARISON: Mammography: 09/25/2021, 09/14/2020, 09/09/2019 TECHNIQUE: Digital breast tomosynthesis is performed in both the craniocaudal and mediolateral oblique views along with computer-aided detection (CAD). Synthesized 2D images are generated from the tomosynthesis. FINDINGS: There are scattered areas of fibroglandular density (ACR BI-RADS breast composition Category b). There are no significant masses, abnormal calcifications, or other abnormalities. There is fine fibronodular pattern similar to prior studies. No developing density. No significant changes. MM/MM tomosynthesis screening BI IMPRESSION: No mammographic evidence of malignancy. ASSESSMENT: BI-RADS 1: Negative RECOMMENDATION: Routine annual mammography screening. This patient's information was entered into a reminder system with a target due date for their next mammogram.
== END 2022-09-28 08:59 | disposition home or self-care (01) ==
LOC: HO.MAMMO 08:58
PROVIDERS: PCP Internal Medicine; Visit Provider Internal Medicine
DX: Z12.31 Encounter for screening mammogram for malignant neoplasm of breast (principal)
CPT/HCPCS: 77063; 77067

== ENCOUNTER 2022-11-11 11:51 | Outpatient (REF) | payer MEDICARE, MEDICAID, SELFPAY ==
[2022-11-11 13:35] LABS: MANUAL DIFF FLAG NO
[2022-11-11 13:43] LABS: Basophils Percent Auto 0.8 % (0-2); Eosinophils Absolute Auto 0.1 X10*3/uL (0.0-0.4); Eosinophils Percent Auto 2.3 % (0-4); Hematocrit 37.9 % (37.0-47.0); Hemoglobin 12.1 g/dl (12.0-16.0); Imm Gran Abs Auto 0.01 X10*3/uL (0.00-0.03); Imm Gran Pct Auto 0.2 % (0.0-0.4); Lymphocytes Absolute Auto 1.5 X10*3/uL (1.2-4.9); Lymphocytes Percent Auto 28.3 % (20-40); Mean Corpuscular HGB Conc 31.9 g/dl (31.0-35.0); Mean Platelet Volume 9.7 fL (9.4-12.3); Monocytes Absolute Auto 0.5 X10*3/uL (0.1-1.2); Monocytes Percent Auto 10.5 % (2-11); Neutrophils Percent Auto 57.9 % (45-73); Platelet Count 257 X10*3/uL (160-400); Red Blood Count 4.03 X10*6/uL (4.20-5.50); Red Cell Distribution Width 13.8 % (11.0-16.0); White Blood Count 5.1 X10*3/uL (4.8-10.8)
[2022-11-11 14:08] LABS: Estimated Average Glucose 163 mg/dL; Hemoglobin A1c % 7.3 %
[2022-11-11 14:29] LABS: Creatinine Urine 95.48 mg/dL; Microalbum/Creatinine Ratio Ur 37.7 ug/mg cr
[2022-11-11 14:31] LABS: Alanine Aminotransferase 13 U/L (0-31); Albumin Level 3.5 g/dL (3.5-5.0); Alkaline Phosphatase 83 U/L (39-117); Anion Gap 15 (12-20); Aspartate Amino Transferase 14 U/L (5-31); Bilirubin Total 0.5 mg/dL (0.0-1.0); Blood Urea Nitrogen 19 mg/dL (9-16); Calcium 8.9 mg/dL (8.4-10.2); Carbon Dioxide 25 mmol/L (22-29); Chloride 107 mmol/L (96-108); Estimated Glomerular Filt Rate 34; Glucose Random 142 mg/dL (60-115); Potassium 4.6 mmol/L (3.3-5.1); Sodium 142 mmol/L (135-145); Total Protein 6.6 g/dL (6.5-8.0)
== END 2022-11-11 11:52 | disposition home or self-care (01) ==
LOC: HO.10HDL 11:51
PROVIDERS: Visit Provider Internal Medicine
DX: I25.10 Atherosclerotic heart disease of native coronary artery without angina pectoris (principal); E11.22 Type 2 diabetes mellitus with diabetic chronic kidney disease; I12.9 Hypertensive chronic kidney disease with stage 1 through stage 4 chronic kidney disease, or unspecified chronic kidney disease; N18.9 Chronic kidney disease, unspecified
CPT/HCPCS: 36415; 80053; 82043; 83036; 85025

== ENCOUNTER → 2022-12-04 12:38 | Outpatient (REF) | payer MEDICARE, MEDICAID, SELFPAY ==
--- NOTE | 2022-12-04 12:43 | CA_ITS ---
Transthoracic Echocardiogram Patient (Last, First, Middle): Anjana Silva R Gender: Female Date of : 1945 Age: 77 Procedure Date: 12/04/2022 Procedure Type: Transthoracic Echocardiogram Location: OP Height: 157.48 cm Weight: 70.31 kg BSA: 1.72 m2 Heart Rate: 78 bpm BP: 115 / 60 mmHg Test Tube Maker: LAZARO Huggins MD: Terell Macias MD Weaver Dobby Loom: Terell Macias MD Symptoms: I50.20 - Unspecified systolic (congestive) heart failure Study Quality: Fair ECG Rhythm: Sinus Conclusions: - 1. Moderately reduced LV systolic function with LVEF of 35-40% with impaired relaxation filling pattern and elevated filling pressures 2. Mildly dilated left atrium 3. No significant abnormalities of cardiac valvular Doppler with mild mitral calcification 4. No gross pericardial effusion Findings Left Ventricle Normal left ventricular cavity size. There is normal left ventricular wall thickness. The left ventricular systolic function is moderately decreased. The visually estimated ejection fraction is between 35-40%. Spectral Doppler is indicative of an impaired relaxation filling pattern. Elevated filling pressures. E/E prime ratio is >15, consistent with elevated filling pressures. Right Ventricle Normal right ventricular cavity size. There is borderline right ventricular systolic function. Atria The left atrium is mildly dilated. Interatrial shunt cannot be excluded. The right atrium is normal in size. Aortic Valve There is mild calcification of the aortic valve. There is no aortic valve stenosis. There is no aortic valve regurgitation. Mitral Valve There is mild anterior and posterior mitral leaflet thickening. There is mild mitral valve regurgitation. There is no mitral valve stenosis. Pulmonic Valve The pulmonic valve was not well visualized. Tricuspid Valve Likely normal tricuspid valve structure and function. Tricuspid regurgitation envelope is inadequate for calculation of right ventricular systolic pressure. Normal right atrial pressure. Great Vessels All visible segments of the aorta are normal in size. The pulmonary artery was not well visualized. Venous The inferior vena cava is normal in size and collapses greater than 50% with inspiration. Pericardium/Pleural There is no evidence of pericardial effusion. Prior Study Comparison No significant change compared to prior study dated: 11/14/2021. Measurements 2D Linear Measurements IVSd: 1.09 0.6-0.9/0.6-1.0 cm LVIDd: 5.32 3.9-5.3/4.2-5.9 cm LVIDd Index: 3.09 2.4-3.2/2.2-3.1 cm/m2 LVIDs: 5.03 2.0-3.6 cm LVPWd: 1.09 0.7-1.1 cm LA Diam: 4.00 2.7-3.8/3.0-4.0 cm LAIDs Index: 2.33 1.5-2.3 cm/m2 LV Mass: 282.16 67-162/88-224 g LV Mass Index: 164.05 43-95/49-115 g/m2 LVOT Diam: 1.80 3.0+(-)1.3 cm 2D Systolic Function EF 4C: 44.00 >55% EF 2C: 30.50 >55% EF BiP: 38.60 >55% Mitral Valve MV Pk E: 0.62 MV PK A: 0.93 MV Decel Time: 178.00 E/A: 0.70 E'Lateral: 4.23 E'Medial: 2.72 E/E' Med: 22.70 E/E' Lat: 14.60 PHT: 52.00 MVA PHT: 4.23 Decel [place]: 3.46 Aortic Valve AoV Pk Ethan: 1.21 AoV Mn Ethan: 0.96 AoV VTI: 0.29 AoV Pk Grad: 6.00 Aov Mn Grad: 4.00 RANDALL Cont.VTI: 1.62 LVOT LVOT Pk Ethan: 0.81 LVOT Mn Ethan: 0.61 LVOT VTI: 0.18 LVOT Pk Grad: 3.00 LVOT Mn Grad: 2.00 LVOT Diam: 1.80 LVOT Area: 2.54 Diastolic Function MV Pk E: 0.62 MV Pk A: 0.93 E/A: 0.70 E'Medial: 2.72 E/E' Med: 22.70 E' Laterial: 4.23 E/E' Lat: 14.60 Right Ventricle TAPSE (mm): 16.50 TVS' Ethan: 9.30 Tricuspid Valve RA Press: 3.00 Great Vessels Aorta Sinus of Valsalva: 3.00 2.0-3.5 cm Ao Asc: 2.80 2.1-3.4 cm Pulmonary Valve PV Pk Ethan: 0.84 Peak PV Grad: 3.00 Updated in Other Vendor System with Status of Final Terell Macias MD electronically signed on 12/05/2022 3:19:59 PM with status of Final
== END ==
LOC: HO.CARD 12:38
PROVIDERS: PCP Internal Medicine; Visit Provider Internal Medicine Cardiovascular Disease
DX: I50.20 Unspecified systolic (congestive) heart failure (principal)
CPT/HCPCS: 93306

== ENCOUNTER → 2022-12-15 09:45 | Outpatient (BNVA) | payer MEDICARE, MEDICAID, SELFPAY | PROVIDERS: PCP Internal Medicine; Referring Provider Internal Medicine; Visit Provider Internal Medicine Cardiovascular Disease | DX: I25.10 Atherosclerotic heart disease of native coronary artery without angina pectoris (principal); I50.20 Unspecified systolic (congestive) heart failure | CPT/HCPCS: 36415; 80048; 83880; 99212 ==

== ENCOUNTER 2022-12-15 10:48 | Outpatient (REF) | payer MEDICARE, MEDICAID, SELFPAY ==
[2022-12-15 14:09] LABS: Anion Gap 14 (12-20); Blood Urea Nitrogen 21 mg/dL (9-16); Calcium 8.7 mg/dL (8.4-10.2); Carbon Dioxide 23 mmol/L (22-29); Chloride 107 mmol/L (96-108); Estimated Glomerular Filt Rate 32; Glucose Random 134 mg/dL (60-115); Potassium 4.2 mmol/L (3.3-5.1); Sodium 140 mmol/L (135-145)
[2022-12-15 14:11] LABS: B Type Natriuretic Peptide 266 pg/mL (<100)
== END 2022-12-15 10:49 | disposition home or self-care (01) ==
LOC: HO.10HDL 10:48
PROVIDERS: Visit Provider Internal Medicine Cardiovascular Disease
DX: Z13.89 Encounter for screening for other disorder (principal)
CPT/HCPCS: 36415; 80048; 83880

== ENCOUNTER → 2023-01-04 09:34 | Outpatient (BNVA) | payer MEDICARE, MEDICAID, SELFPAY | PROVIDERS: PCP Internal Medicine; Visit Provider Internal Medicine | DX: J44.9 Chronic obstructive pulmonary disease, unspecified (principal); J43.9 Emphysema, unspecified; C34.12 Malignant neoplasm of upper lobe, left bronchus or lung | CPT/HCPCS: 99212 ==

== ENCOUNTER 2023-02-10 10:10 | Outpatient (REF) | payer MEDICARE, MEDICAID, SELFPAY ==
[2023-02-10 10:47] LABS: Estimated Average Glucose 148 mg/dL; Hemoglobin A1c % 6.8 %
[2023-02-10 11:21] LABS: Anion Gap 14 (12-20); Blood Urea Nitrogen 17 mg/dL (9-16); Carbon Dioxide 24 mmol/L (22-29); Chloride 109 mmol/L (96-108); Estimated Glomerular Filt Rate 33; Glucose Random 126 mg/dL (60-115); Potassium 4.8 mmol/L (3.3-5.1); Sodium 142 mmol/L (135-145)
== END 2023-02-10 10:11 | disposition home or self-care (01) ==
LOC: HO.10HDL 10:10
PROVIDERS: Visit Provider Internal Medicine
DX: E11.9 Type 2 diabetes mellitus without complications (principal); I25.10 Atherosclerotic heart disease of native coronary artery without angina pectoris; N18.9 Chronic kidney disease, unspecified
CPT/HCPCS: 36415; 80048; 83036

== ENCOUNTER 2023-05-19 09:57 | Outpatient (REF) | payer MEDICARE, MEDICAID, SELFPAY ==
[2023-05-19 10:51] LABS: MANUAL DIFF FLAG NO
[2023-05-19 11:02] LABS: Basophils Absolute Auto 0.1 X10*3/uL (0.0-0.2); Eosinophils Absolute Auto 0.1 X10*3/uL (0.0-0.4); Eosinophils Percent Auto 2.3 % (0-4); Hematocrit 40.8 % (37.0-47.0); Hemoglobin 12.8 g/dl (12.0-16.0); Imm Gran Abs Auto 0.01 X10*3/uL (0.00-0.03); Imm Gran Pct Auto 0.2 % (0.0-0.4); Lymphocytes Absolute Auto 1.3 X10*3/uL (1.2-4.9); Lymphocytes Percent Auto 21.7 % (20-40); Mean Corpuscular HGB Conc 31.4 g/dl (31.0-35.0); Mean Corpuscular Hemoglobin 30.2 pg (27.0-33.0); Mean Corpuscular Volume 96.2 fL (80.0-98.0); Mean Platelet Volume 9.7 fL (9.4-12.3); Monocytes Absolute Auto 0.7 X10*3/uL (0.1-1.2); Monocytes Percent Auto 10.9 % (2-11); Neutrophils Absolute Auto 3.8 x10*3/uL (2.0-8.3); Neutrophils Percent Auto 63.9 % (45-73); Platelet Count 257 X10*3/uL (160-400); Red Blood Count 4.24 X10*6/uL (4.20-5.50); Red Cell Distribution Width 14.4 % (11.0-16.0)
[2023-05-19 11:22] LABS: Alanine Aminotransferase 12 U/L (0-31); Albumin Level 3.6 g/dL (3.5-5.0); Alkaline Phosphatase 78 U/L (39-117); Anion Gap 11 (12-20); Aspartate Amino Transferase 14 U/L (5-31); Bilirubin Total 0.4 mg/dL (0.0-1.0); Blood Urea Nitrogen 19 mg/dL (9-16); Calcium 9.3 mg/dL (8.4-10.2); Carbon Dioxide 25 mmol/L (22-29); Chloride 111 mmol/L (96-108); Estimated Glomerular Filt Rate 30; Glucose Random 134 mg/dL (60-115); Potassium 4.4 mmol/L (3.3-5.1); Sodium 143 mmol/L (135-145)
[2023-05-19 11:26] LABS: Estimated Average Glucose 134 mg/dL; Hemoglobin A1c % 6.3 %
== END 2023-05-19 09:58 | disposition home or self-care (01) ==
LOC: HO.10HDL 09:57
PROVIDERS: Visit Provider Internal Medicine
DX: E11.9 Type 2 diabetes mellitus without complications (principal); N18.9 Chronic kidney disease, unspecified; I25.10 Atherosclerotic heart disease of native coronary artery without angina pectoris; J44.9 Chronic obstructive pulmonary disease, unspecified
CPT/HCPCS: 36415; 80053; 83036; 85025

== ENCOUNTER 2023-06-15 09:32 | Outpatient (AMB) | payer MEDICARE, MEDICAID, SELFPAY ==
--- NOTE | 2023-06-15 09:38 | A.OFFVIS_ITS ---
Intake Vital Signs 06/15/23 09:39 Height 5 ft 2 in Weight 158 lb 11.725 oz BMI 29.0 BP 134/82 Blood Pressure Location Lt brachial Position Sitting Pulse 74 Intake Visit Reasons: 6 mth f/up Intake Note: 6 month follow-up feeling good [employer] Required: No Allergies No Known Allergies [No Known Allergies*] Allergy (Verified 01/04/23 09:58) Medication List - Last Reconciled 06/15/23 by Terell Macias MD aspirin (Adult Low Dose Aspirin) 81 mg PO DAILY atorvastatin 40 mg PO DAILY 90 days dulaglutide (Trulicity) 3 mg subcut QWEEK furosemide 20 mg PO .Twice a week gabapentin 100 mg PO BID glipizide 10 mg PO BID isosorbide mononitrate ER 30 mg PO DAILY metformin 1,000 mg PO BID metoprolol tartrate 100 mg PO BID nitroglycerin 0.3 mg sublingual Q5M PRN sacubitril-valsartan 24-26 mg 1 tab PO BID 90 days HPI HPI Comments History of Present Illness Details Anjana comes for follow-up. She has been doing well from cardiac perspective. No hospitalization last 6 months. She remains active. Denies any prolonged palpitations or lightheadedness or syncope. No orthopnea, PND, leg edema, weight gain. Takes all her medications regularly. Denies exertional chest pain. [facility] Medical History CAD (coronary artery disease) COPD (chronic obstructive pulmonary disease) DM2 (diabetes mellitus, type 2) Emphysema lung Exercise hypoxemia Heart failure with reduced ejection fraction History of ST elevation myocardial infarction (STEMI) (~03/2013) HLD (hyperlipidemia) HTN (hypertension) Malignant neoplasm of upper lobe of left lung (~2018) On home O2 Personal history of nicotine dependence PVD (peripheral vascular disease) Tubular adenoma of colon Surgical History History of bronchoscopy (~03/2019) History of cardiac cath (~03/2013) History of colonoscopy (~12/2019) History of lung surgery (~03/2019) Social History Patient Tobacco Use Status: Former Tobacco user Review of Systems Const Denies chills, Denies fatigue, Denies fever(s), Denies frequent falls, Denies weakness, Denies weight gain and Denies weight loss ENT Denies dizziness Card Denies chest pain, Denies leg edema, Denies lightheadedness, Denies palpitations, Denies dyspnea, Denies dyspnea on exertion, Denies orthopnea and Denies other (loss of consciousness) Resp Denies cough, Denies dyspnea and Denies dyspnea on exertion GI Denies hematochezia and Denies change in stool character Musc Denies abnormal gait, Denies muscle weakness, Denies numbness, Denies radiating pain into limb and Denies tingling Neuro Denies Abnormal speech present, Denies abnormal gait, Denies dizziness, Denies frequent falls, Denies numbness, Denies tingling and Denies weakness Endo Denies fatigue and Denies palpitations Physical Exam Vital Signs: Last Vital Signs Pulse 74 06/15/23 09:39 BP 134/82 06/15/23 09:39 BMI result Body Mass Index 29.0 Const General: cooperative, comfortable, no acute distress, alert and awake Nutritional Appearance: overweight Orientation/consciousness: patient oriented x3 Limitations: no limitations Neck Neck: Yes trachea midline, Yes supple and Yes no JVD Resp Effort & Inspection: normal respiratory effort Auscultation: no wheezes and diminished lung sounds Cardio Jugular venous distension: no JVD Palpation: abnormal PMI Rate: regular rate Rhythm: regular rhythm Heart sounds: S1 normal heart sound present, S2 normal heart sound present, no click, no gallops and no murmurs GI Auscultation: normal bowel sounds Skin General skin exam: no rashes or lesions noted Neuro General: patient oriented x3 and no focal motor deficits Speech: No Abnormal speech present Extrem General: Yes no clubbing, cyanosis or edema Assessment & Plan Assessment & Plan (1) Heart failure with reduced ejection fraction: Code(s): I50.20 - Unspecified systolic (congestive) heart failure Plan: Heart failure with reduced ejection fraction with moderate LV systolic dysfunction by last echocardiogram. Clinically doing well with good functionality with NYHA class 2 symptoms. Continue current neurohormonal modulation with Entresto as well as metoprolol therapy. Importance of medical therapy was discussed. Continue current low-dose Lasix therapy. Daily weight monitoring avoidance of salt loading was discussed. Additional diuretics as need be. Continue aggressive management of her COPD as well to prevent cardiac exacerbate a lau. Advised to maintain activity level as tolerated. (2) CAD (coronary artery disease): Comment: (Hx STEMI 04/10/2013 - Cardiac Cath/?stent @ [facility] [place]) Code(s): I25.10 - Atherosclerotic heart disease of [place] coronary artery without angina pectoris Plan: CAD with prior myocardial infarction 2012. No recurrent symptoms at this point time. Continue low-dose aspirin therapy for life. Continue aggressive risk factor modification with aggressive control of diabetes goal hemoglobin A1c less than 7%, under your care. Continue high-intensity statin therapy with target goal LDL less than 70 mg/dL. Continue aggressive blood pressure control which is currently well optimized. Will follow up in the clinic in 7 months time after an echocardiogram. Thank you for allowing me to partake in her care Coding Level of Care Code Est Pt Level 4 (21913) Diagnoses Heart failure with reduced ejection fraction I50.20 CAD (coronary artery disease) I25.10
[2023-06-15 09:39] VITALS: BP 134/82; PULSE 74; BMI 29.0
== END 2023-06-15 09:57 | disposition home or self-care (01) ==
PROVIDERS: PCP Internal Medicine; Referring Provider Internal Medicine; Visit Provider Internal Medicine Cardiovascular Disease
DX: I50.20 Unspecified systolic (congestive) heart failure (principal); I25.10 Atherosclerotic heart disease of native coronary artery without angina pectoris
CPT/HCPCS: 99214

== ENCOUNTER → 2023-06-15 09:32 | Outpatient (BNVA) | payer MEDICARE, MEDICAID, SELFPAY | PROVIDERS: PCP Internal Medicine; Referring Provider Internal Medicine; Visit Provider Internal Medicine Cardiovascular Disease | DX: I50.20 Unspecified systolic (congestive) heart failure (principal); I25.10 Atherosclerotic heart disease of native coronary artery without angina pectoris | CPT/HCPCS: 99212 ==

== ENCOUNTER 2023-08-18 11:55 | Outpatient (REF) | payer MEDICARE, MEDICAID, SELFPAY ==
[2023-08-18 13:17] LABS: MANUAL DIFF FLAG NO
[2023-08-18 13:23] LABS: Basophils Absolute Auto 0.1 X10*3/uL (0.0-0.2); Basophils Percent Auto 1.1 % (0-2); Eosinophils Absolute Auto 0.2 X10*3/uL (0.0-0.4); Eosinophils Percent Auto 2.8 % (0-4); Hematocrit 38.4 % (37.0-47.0); Hemoglobin 12.3 g/dl (12.0-16.0); Imm Gran Abs Auto 0.01 X10*3/uL (0.00-0.03); Imm Gran Pct Auto 0.2 % (0.0-0.4); Lymphocytes Absolute Auto 1.4 X10*3/uL (1.2-4.9); Lymphocytes Percent Auto 26.7 % (20-40); Mean Corpuscular Hemoglobin 30.8 pg (27.0-33.0); Mean Platelet Volume 9.9 fL (9.4-12.3); Monocytes Absolute Auto 0.6 X10*3/uL (0.1-1.2); Neutrophils Absolute Auto 3.1 x10*3/uL (2.0-8.3); Neutrophils Percent Auto 58.2 % (45-73); Platelet Count 229 X10*3/uL (160-400); Red Cell Distribution Width 14.3 % (11.0-16.0); White Blood Count 5.3 X10*3/uL (4.8-10.8)
[2023-08-18 13:28] LABS: Estimated Average Glucose 137 mg/dL; Hemoglobin A1c % 6.4 % (<6.0)
[2023-08-18 13:42] LABS: Alanine Aminotransferase 15 U/L (0-31); Albumin Level 3.6 g/dL (3.5-5.0); Alkaline Phosphatase 86 U/L (39-117); Anion Gap 14 (12-20); Aspartate Amino Transferase 17 U/L (5-31); Bilirubin Total 0.4 mg/dL (0.0-1.0); Blood Urea Nitrogen 23 mg/dL (9-16); Calcium 9.2 mg/dL (8.4-10.2); Carbon Dioxide 21 mmol/L (22-29); Chloride 110 mmol/L (96-108); Cholesterol 132 mg/dL (<200); Estimated Glomerular Filt Rate 35; Glucose Fasting 136 mg/dL (60-99); HDL Cholesterol 38 mg/dL (>40); LDL Cholesterol Calculated 71 mg/dL (<100); Potassium 4.5 mmol/L (3.3-5.1); Sodium 140 mmol/L (135-145); Total Protein 7.2 g/dL (6.5-8.0); Triglycerides 119 mg/dL (<150)
[2023-08-18 14:37] LABS: Creatinine Urine 69.67 mg/dL; Microalbum/Creatinine Ratio Ur 21.5 ug/mg cr (<30)
== END 2023-08-18 11:56 | disposition home or self-care (01) ==
LOC: HO.10HDL 11:55
PROVIDERS: Visit Provider Internal Medicine
DX: I25.10 Atherosclerotic heart disease of native coronary artery without angina pectoris (principal); E11.22 Type 2 diabetes mellitus with diabetic chronic kidney disease; N18.9 Chronic kidney disease, unspecified; J44.9 Chronic obstructive pulmonary disease, unspecified; E78.00 Pure hypercholesterolemia, unspecified
CPT/HCPCS: 36415; 80053; 80061; 82043; 82570; 83036; 85025

== ENCOUNTER 2023-09-07 11:39 | Outpatient (AMB) | payer MEDICARE, MEDICAID, SELFPAY ==
[2023-09-07 11:46] VITALS: BP 100/60; PULSE 69; O2SAT 98; BMI 29.4
--- NOTE | 2023-09-07 11:46 | HO.NEPHOV_ITS ---
HPI HPI Comments History of Present Illness Details Anjana is a pleasant elderly woman with a history of stage IIIB chronic kidney disease. Baseline creatinine is around 1.4-1.6 mg/dL. She has a history of diabetes mellitus 2009 and along with hypertension. Both have been under good control. Anjana has a history of stage III A T2 N2 lung adenocarcinoma diagnosed in March 2019. She has undergone left lingular segmentectomy and shivani dissection on 04/20/2019. She was started on adjuvant carboplatin/Alimta chemotherapy on 06/20/2019 and completed 4 cycles. She had mediastinal radiation in 2019 and completed in November of 2019. In July 2020 serum creatinine was 1.81 and as of February 2021 creatinine was 2.1 mg/dL. She also has a history of COPD which is under control. History of coronary disease and CHF. She is currently on Entresto. Today she has no new issues. [facility] Medical History CAD (coronary artery disease) COPD (chronic obstructive pulmonary disease) DM2 (diabetes mellitus, type 2) Emphysema lung Exercise hypoxemia Heart failure with reduced ejection fraction History of ST elevation myocardial infarction (STEMI) (~03/2013) HLD (hyperlipidemia) HTN (hypertension) Malignant neoplasm of upper lobe of left lung (~2018) On home O2 Personal history of nicotine dependence PVD (peripheral vascular disease) Tubular adenoma of colon Surgical History History of cardiac cath (~03/2013) History of lung surgery (~03/2019) History of bronchoscopy (~03/2019) History of colonoscopy (~12/2019) Social History Patient Tobacco Use Status: Former Tobacco user Vital Signs 09/07/23 11:46 Height 5 ft 2 in Weight 161 lb BMI 29.4 BP 100/60 Blood Pressure Location Lt brachial Position Sitting Pulse 69 Pulse Source Pulse Oximeter Pulse Oximetry (%) 98 Oxygen Delivery Method Room Air Physical Exam Vital Signs: Last Vital Signs Pulse 69 09/07/23 11:46 BP 100/60 09/07/23 11:46 Pulse Ox 98 09/07/23 11:46 Oxygen Delivery Method Room Air 09/07/23 11:46 BMI result Body Mass Index 29.4 Const General: comfortable Nutritional Appearance: well nourished Orientation/consciousness: patient oriented x3 HEENT Head: No normal to inspection Mouth: moist mucous membranes Neck Neck: Yes supple and Yes no JVD Resp Auscultation: clear to auscultation bilaterally, no rales and rub present Cardio Jugular venous distension: no JVD Palpation: no palpable S3 and no palpable S4 Heart sounds: no rubs GI Palpation (GI): Soft to palpation and nontender Percussion: No Fluid wave present General: Yes no CVA tenderness Back/Spine/Pelvis Back: no CVA tenderness Skin General skin exam: no rashes or lesions noted Neuro General: patient oriented x3 Extrem General: Yes no pedal edema and No clubbing Results Reviewed Results Reviewed: As of July 2023 hemoglobin 12.3 platelets 229 Sodium 140 BUN 23 creatinine 1.43 Urine microalbumin creatinine ratio of 21.5 Assessment & Plan Assessment & Plan (1) CKD (chronic kidney disease) stage 3, GFR 30-59 ml/min: Code(s): N18.30 - Chronic kidney disease, stage 3 unspecified Plan: Elderly woman with chronic kidney disease stage IIIB in the setting of longstanding hypertension diabetes mellitus and lung cancer status post the chemotherapy with carboplatin. She does not have significant proteinuria. 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 There could be some age-related nephron loss as well. However she has received carboplatin in the last which could have led to tubular damage. In any case renal function is stable at baseline with a creatinine 1.43. Goal is to slow the progression of renal disease. Continue to avoid nephrotoxic agents. (2) Heart failure with reduced ejection fraction: Code(s): I50.20 - Unspecified systolic (congestive) heart failure Plan: Well compensated. Currently on Entresto. Encouraged to follow-up with Dr. Macias Stay on low-sodium diet. Continue with current dose of Lasix (3) Renal cyst: Comment: As of 2020, Prominent pyramids right kidney with an anechoic cyst. No echogenic stone or hydronephrosis. Bosniak type II complex cyst midpole left kidney. No echogenic stones or caliectasis. Code(s): N28.1 - Cyst of kidney, acquired Plan: has been stable. She underwent repeat ultrasonogram in [facility] few months ago. We will track down the results. Orders: Orders Electrolytes 4 Months N18.30 - Chronic kidney disease, stage 3 unspecified Blood Urea Nitrogen 4 Months N18.30 - Chronic kidney disease, stage 3 unspecified Creatinine 4 Months N18.30 - Chronic kidney disease, stage 3 unspecified Calcium 4 Months N18.30 - Chronic kidney disease, stage 3 unspecified Coding Level of Care Code Est Pt Level 4 (41799) Diagnoses CKD (chronic kidney disease) stage 3, GFR 30-59 ml/min N18.30 Heart failure with reduced ejection fraction I50.20 Renal cyst N28.1
== END 2023-09-07 12:03 | disposition home or self-care (01) ==
PROVIDERS: PCP Internal Medicine; Visit Provider Internal Medicine Hypertension Specialist
DX: I13.0 Hypertensive heart and chronic kidney disease with heart failure and stage 1 through stage 4 chronic kidney disease, or unspecified chronic kidney disease (principal); E11.22 Type 2 diabetes mellitus with diabetic chronic kidney disease; N18.32 Chronic kidney disease, stage 3b; I50.20 Unspecified systolic (congestive) heart failure; N28.1 Cyst of kidney, acquired
CPT/HCPCS: 99214

== ENCOUNTER → 2023-09-07 11:39 | Outpatient (BNVA) | payer MEDICARE, MEDICAID, SELFPAY | PROVIDERS: PCP Internal Medicine; Visit Provider Internal Medicine Hypertension Specialist | DX: N18.30 Chronic kidney disease, stage 3 unspecified (principal); I50.20 Unspecified systolic (congestive) heart failure; N28.1 Cyst of kidney, acquired | CPT/HCPCS: 99212 ==

== ENCOUNTER 2023-10-04 09:14 | Outpatient (REF) | payer MEDICARE, MEDICAID, SELFPAY | END 2023-10-04 09:15 | disposition home or self-care (01) | LOC: HO.MAMMO 09:14 | PROVIDERS: PCP Internal Medicine; Visit Provider Internal Medicine | DX: Z12.31 Encounter for screening mammogram for malignant neoplasm of breast (principal) | CPT/HCPCS: 77063; 77067 ==

== ENCOUNTER → 2023-10-04 09:30 | Outpatient (BNV) | payer MEDICARE, MEDICAID, SELFPAY | PROVIDERS: PCP Internal Medicine; Visit Provider Radiology Diagnostic Radiology | DX: Z12.31 Encounter for screening mammogram for malignant neoplasm of breast (principal) | CPT/HCPCS: 77063; 77067 ==

== ENCOUNTER 2023-12-30 09:37 | Outpatient (REF) | payer MEDICARE, MEDICAID, SELFPAY ==
[2023-12-30 12:08] LABS: Anion Gap 12 (12-20); Blood Urea Nitrogen 26 mg/dL (9-16); Calcium 8.8 mg/dL (8.4-10.2); Carbon Dioxide 23 mmol/L (22-29); Chloride 107 mmol/L (96-108); Estimated Glomerular Filt Rate 33; Potassium 4.3 mmol/L (3.3-5.1); Sodium 138 mmol/L (135-145)
== END 2023-12-30 09:38 | disposition home or self-care (01) ==
LOC: HO.10HDL 09:37
PROVIDERS: Visit Provider Internal Medicine Hypertension Specialist
DX: N18.30 Chronic kidney disease, stage 3 unspecified (principal)
CPT/HCPCS: 36415; 80051; 82310; 82565; 84520

== ENCOUNTER 2024-01-04 10:33 | Outpatient (AMB) | payer MEDICARE, MEDICAID, SELFPAY ==
[2024-01-04 10:34] VITALS: BP 140/70; PULSE 75; O2SAT 96; BMI 28.5
--- NOTE | 2024-01-04 10:34 | HO.NEPHOV_ITS ---
HPI HPI Comments History of Present Illness Details Anjana is a pleasant elderly woman with a history of stage IIIB chronic kidney disease. Baseline creatinine is around 1.4-1.6 mg/dL. She has a history of diabetes mellitus 2009 and along with hypertension. Both have been under good control. Anjana has a history of stage III A T2 N2 lung adenocarcinoma diagnosed in March 2019. She has undergone left lingular segmentectomy and shivani dissection on 04/20/2019. She was started on adjuvant carboplatin/Alimta chemotherapy on 06/20/2019 and completed 4 cycles. She had mediastinal radiation in 2019 and completed in November of 2019. In July 2020 serum creatinine was 1.81 and as of February 2021 creatinine was 2.1 mg/dL. She also has a history of COPD which is under control. History of coronary disease and CHF. She is currently on Entresto. Today she has no new issues. [facility] Medical History CAD (coronary artery disease) COPD (chronic obstructive pulmonary disease) DM2 (diabetes mellitus, type 2) Emphysema lung Exercise hypoxemia Heart failure with reduced ejection fraction History of ST elevation myocardial infarction (STEMI) (~03/2013) HLD (hyperlipidemia) HTN (hypertension) Malignant neoplasm of upper lobe of left lung (~2018) On home O2 Personal history of nicotine dependence PVD (peripheral vascular disease) Tubular adenoma of colon Surgical History History of cardiac cath (~03/2013) History of lung surgery (~03/2019) History of bronchoscopy (~03/2019) History of colonoscopy (~12/2019) Social History Patient Tobacco Use Status: Former Tobacco user Vital Signs 01/04/24 10:34 Height 5 ft 2 in Weight 156 lb BMI 28.5 BP 140/70 H Blood Pressure Location Lt brachial Position Sitting Pulse 75 Pulse Source Pulse Oximeter Pulse Oximetry (%) 96 Oxygen Delivery Method Room Air Physical Exam Vital Signs: Last Vital Signs Pulse 75 01/04/24 10:34 BP 140/70 H 01/04/24 10:34 Pulse Ox 96 01/04/24 10:34 Oxygen Delivery Method Room Air 01/04/24 10:34 BMI result Body Mass Index 28.5 Const General: comfortable Nutritional Appearance: well nourished Orientation/consciousness: patient oriented x3 HEENT Head: No normal to inspection Mouth: moist mucous membranes Neck Neck: Yes supple and Yes no JVD Resp Auscultation: clear to auscultation bilaterally, no rales and rub present Cardio Jugular venous distension: no JVD Palpation: no palpable S3 and no palpable S4 Heart sounds: no rubs GI Palpation (GI): Soft to palpation and nontender Percussion: No Fluid wave present General: Yes no CVA tenderness Back/Spine/Pelvis Back: no CVA tenderness Skin General skin exam: no rashes or lesions noted Neuro General: patient oriented x3 Extrem General: Yes no pedal edema and No clubbing Assessment & Plan Assessment & Plan (1) CKD (chronic kidney disease) stage 3, GFR 30-59 ml/min: Code(s): N18.30 - Chronic kidney disease, stage 3 unspecified Plan: . Elderly woman with chronic kidney disease stage IIIB in the setting of longstanding hypertension diabetes mellitus and lung cancer status post the chemotherapy with carboplatin. She does not have significant proteinuria. 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 There could be some age-related nephron loss as well. However she has received carboplatin in the last which could have led to tubular damage. In any case renal function is stable at baseline with a creatinine 1.43. Goal is to slow the progression of renal disease. Continue to avoid nephrotoxic agents. . (2) Heart failure with reduced ejection fraction: Code(s): I50.20 - Unspecified systolic (congestive) heart failure Plan: . Well compensated. Currently on Entresto. Encouraged to follow-up with Dr. Macias Stay on low-sodium diet. Continue with current dose of Lasix . (3) Renal cyst: Comment: . As of 2020, Prominent pyramids right kidney with an anechoic cyst. No echogenic stone or hydronephrosis. Bosniak type II complex cyst midpole left kidney. No echogenic stones or caliectasis. Code(s): N28.1 - Cyst of kidney, acquired Plan: . Cyst has been stable. She underwent repeat ultrasonogram in [facility] few months ago. . . Coding Level of Care Code Est Pt Level 4 (92941) Diagnoses CKD (chronic kidney disease) stage 3, GFR 30-59 ml/min N18.30 Heart failure with reduced ejection fraction I50.20 Renal cyst N28.1 Results Reviewed Nephrology Results: Hgb 12.3 g/dl (12.0-16.0) 08/18/23 WBC 5.3 X10*3/uL (4.8-10.8) 08/18/23 Plt Count 229 X10*3/uL (160-400) 08/18/23 Sodium 138 mmol/L (135-145) 12/30/23 Potassium 4.3 mmol/L (3.3-5.1) 12/30/23 Chloride 107 mmol/L (96-108) 12/30/23 Carbon Dioxide 23 mmol/L (22-29) 12/30/23 BUN 26 mg/dL (9-16) H 12/30/23 Creatinine 1.52 mg/dL (0.5-1.4) H 12/30/23 Calcium 8.8 mg/dL (8.4-10.2) 12/30/23 Urine Creatinine 69.67 mg/dL 08/18/23
== END 2024-01-04 10:49 | disposition home or self-care (01) ==
PROVIDERS: PCP Internal Medicine; Visit Provider Internal Medicine Hypertension Specialist
DX: N18.30 Chronic kidney disease, stage 3 unspecified (principal); I50.20 Unspecified systolic (congestive) heart failure; N28.1 Cyst of kidney, acquired
CPT/HCPCS: 99214

== ENCOUNTER → 2024-01-04 10:33 | Outpatient (BNVA) | payer MEDICARE, MEDICAID, SELFPAY | PROVIDERS: PCP Internal Medicine; Visit Provider Internal Medicine Hypertension Specialist | DX: N18.30 Chronic kidney disease, stage 3 unspecified (principal); I50.20 Unspecified systolic (congestive) heart failure; N28.1 Cyst of kidney, acquired | CPT/HCPCS: 99212 ==

== ENCOUNTER 2024-02-02 09:43 | Outpatient (REF) | payer MEDICARE, MEDICAID, SELFPAY ==
[2024-02-02 11:03] LABS: MANUAL DIFF FLAG NO
[2024-02-02 11:23] LABS: Basophils Absolute Auto 0.1 X10*3/uL (0.0-0.2); Eosinophils Absolute Auto 0.2 X10*3/uL (0.0-0.4); Eosinophils Percent Auto 3.2 % (0-4); Hematocrit 39.3 % (37.0-47.0); Hemoglobin 12.6 g/dl (12.0-16.0); Imm Gran Abs Auto 0.01 X10*3/uL (0.00-0.03); Imm Gran Pct Auto 0.2 % (0.0-0.4); Lymphocytes Absolute Auto 1.6 X10*3/uL (1.2-4.9); Mean Corpuscular HGB Conc 32.1 g/dl (31.0-35.0); Mean Corpuscular Hemoglobin 30.4 pg (27.0-33.0); Mean Corpuscular Volume 94.9 fL (80.0-98.0); Mean Platelet Volume 9.3 fL (9.4-12.3); Monocytes Absolute Auto 0.6 X10*3/uL (0.1-1.2); Monocytes Percent Auto 10.5 % (2-11); Neutrophils Absolute Auto 3.5 x10*3/uL (2.0-8.3); Neutrophils Percent Auto 59.1 % (45-73); Platelet Count 264 X10*3/uL (160-400); Red Blood Count 4.14 X10*6/uL (4.20-5.50); Red Cell Distribution Width 14.1 % (11.0-16.0)
[2024-02-02 11:36] LABS: Estimated Average Glucose 137 mg/dL; Hemoglobin A1C 148.4774 umol/L; Hemoglobin A1c % 6.4 % (<6.0)
[2024-02-02 12:04] LABS: Alanine Aminotransferase 22 U/L (0-31); Albumin Level 3.6 g/dL (3.5-5.0); Alkaline Phosphatase 86 U/L (39-117); Anion Gap 14 (12-20); Aspartate Amino Transferase 21 U/L (5-31); Bilirubin Total 0.5 mg/dL (0.0-1.0); Blood Urea Nitrogen 19 mg/dL (9-16); Calcium 8.8 mg/dL (8.4-10.2); Carbon Dioxide 25 mmol/L (22-29); Chloride 108 mmol/L (96-108); Estimated Glomerular Filt Rate 32; Glucose Random 177 mg/dL (60-115); Potassium 4.8 mmol/L (3.3-5.1); Sodium 142 mmol/L (135-145); Total Protein 7.1 g/dL (6.5-8.0)
== END 2024-02-02 09:44 | disposition home or self-care (01) ==
LOC: HO.10HDL 09:43
PROVIDERS: Visit Provider Internal Medicine
DX: I12.9 Hypertensive chronic kidney disease with stage 1 through stage 4 chronic kidney disease, or unspecified chronic kidney disease (principal); E11.22 Type 2 diabetes mellitus with diabetic chronic kidney disease; N18.9 Chronic kidney disease, unspecified; E78.00 Pure hypercholesterolemia, unspecified; I25.10 Atherosclerotic heart disease of native coronary artery without angina pectoris; J44.9 Chronic obstructive pulmonary disease, unspecified
CPT/HCPCS: 36415; 80053; 83036; 85025

== ENCOUNTER 2024-02-08 09:13 | Outpatient (AMB) | payer MEDICARE, MEDICAID, SELFPAY ==
--- NOTE | 2024-02-08 09:15 | A.OFFVIS_ITS ---
Intake Vital Signs 02/08/24 09:18 Height 5 ft 2 in Weight 156 lb 8.451 oz BMI 28.6 BP 122/70 Blood Pressure Location Lt brachial Position Sitting Pulse 73 Intake Visit Reasons: 8 mth f/up echo Intake Note: 8 month follow-up with ekg after echo feeling good Facility Supervisor Required: No Allergies No Known Allergies [No Known Allergies*] Allergy (Verified 01/04/24 10:36) Medication List - Last Reconciled 02/08/24 by Terell Macias MD aspirin (Adult Low Dose Aspirin) 81 mg PO DAILY atorvastatin 40 mg PO DAILY 90 days dulaglutide (Trulicity) 3 mg subcut QWEEK furosemide 20 mg PO .Twice a week gabapentin 100 mg PO BID glipizide 10 mg PO BID isosorbide mononitrate ER 30 mg PO DAILY metformin 1,000 mg PO BID metoprolol tartrate 100 mg PO BID 90 days nitroglycerin 0.3 mg sublingual Q5M PRN sacubitril-valsartan 24-26 mg 1 tab PO BID 90 days HPI HPI Comments History of Present Illness Details Anjana comes for follow-up. She has been doing very well. No progressive symptoms of heart failure. Her weight has remained stable. Denies any symptoms of orthopnea, PND, leg edema, abdominal distension. Continues to have exertional shortness of breath climbing a flight of stairs with laundry. NYHA class 2. Takes all his medications without any side effects. COUNT INCLUDES THE [facility] Medical History CAD (coronary artery disease) COPD (chronic obstructive pulmonary disease) DM2 (diabetes mellitus, type 2) Emphysema lung Exercise hypoxemia Heart failure with reduced ejection fraction History of ST elevation myocardial infarction (STEMI) (~03/2013) HLD (hyperlipidemia) HTN (hypertension) Malignant neoplasm of upper lobe of left lung (~2018) On home O2 Personal history of nicotine dependence PVD (peripheral vascular disease) Tubular adenoma of colon Surgical History History of cardiac cath (~03/2013) History of lung surgery (~03/2019) History of bronchoscopy (~03/2019) History of colonoscopy (~12/2019) Social History Patient Tobacco Use Status: Former Tobacco user Review of Systems Const Denies chills, Denies fatigue, Denies fever(s), Denies frequent falls, Denies weakness, Denies weight gain and Denies weight loss ENT Denies dizziness Card Denies chest pain, Denies leg edema, Denies lightheadedness, Denies palpitations, Denies dyspnea, Denies dyspnea on exertion, Denies orthopnea and Denies other (loss of consciousness) Resp Denies cough, Denies dyspnea and Denies dyspnea on exertion GI Denies hematochezia and Denies change in stool character Musc Denies abnormal gait, Denies muscle weakness, Denies numbness, Denies radiating pain into limb and Denies tingling Neuro Denies Abnormal speech present, Denies abnormal gait, Denies dizziness, Denies frequent falls, Denies numbness, Denies tingling and Denies weakness Endo Denies fatigue and Denies palpitations Physical Exam Vital Signs: Last Vital Signs Pulse 73 02/08/24 09:18 BP 122/70 02/08/24 09:18 BMI result Body Mass Index 28.6 Const General: cooperative, comfortable, no acute distress, alert and awake Nutritional Appearance: overweight Orientation/consciousness: patient oriented x3 Limitations: no limitations Neck Neck: Yes trachea midline, Yes supple and Yes no JVD Resp Effort & Inspection: normal respiratory effort Auscultation: no wheezes and diminished lung sounds Cardio Jugular venous distension: no JVD Palpation: abnormal PMI Rate: regular rate Rhythm: regular rhythm Heart sounds: S1 normal heart sound present, S2 normal heart sound present, no click, no gallops and no murmurs GI Auscultation: normal bowel sounds Skin General skin exam: no rashes or lesions noted Neuro General: patient oriented x3 and no focal motor deficits Speech: No Abnormal speech present Extrem General: Yes no clubbing, cyanosis or edema Office Procedures EKG Details: EKG shows sinus rhythm with IV CD with T-wave changes in the inferolateral lead, could represent repolarization abnormality versus ischemia. [id number], Complete Assessment & Plan Assessment & Plan (1) Heart failure with reduced ejection fraction: Code(s): I50.20 - Unspecified systolic (congestive) heart failure Plan: Heart failure with reduced ejection fraction, clinically euvolemic and well compensated. Doing well. Currently taking Lasix at 20 mg twice a week. Advised daily weight monitoring avoidance of salt loading. Continue current neurohormonal modulation with Entresto as well as metoprolol therapy. Advised to call me with any worsening symptoms. Follow-up echocardiogram in near future. (2) CAD (coronary artery disease): Comment: (Hx STEMI 04/10/2013 - Cardiac Cath/?stent @ [facility] [place]) Code(s): I25.10 - Atherosclerotic heart disease of [place] coronary artery without angina pectoris Plan: CAD with prior myocardial infarction. No recurrent symptoms or hospitalization related to the same. Continue low-dose aspirin therapy for life. Continue aggressive blood pressure control with goal blood pressure less than 130/84. Target goal hemoglobin A1c less than 7%. Goal LDL less than 70 mg/dL. Advised lipid panel at least annually. Continue high-intensity statin therapy. Encouraged to continue to participate in physical activity as tolerated. Follow up in the clinic in 6 months time, sooner p.r.n.. Thank you for allowing me to partake in her care Orders: Orders CA echo transthoracic complete 1 Week I50.20 - Unspecified systolic (congestive) heart failure Coding Level of Care Code Est Pt Level 4 (07427) Diagnoses Heart failure with reduced ejection fraction I50.20 CAD (coronary artery disease) I25.10 CPT Codes EKG - CPT: 61800-[id number], Complete ([id number])
[2024-02-08 09:18] VITALS: BP 122/70; PULSE 73; BMI 28.6
== END 2024-02-08 09:37 | disposition home or self-care (01) ==
PROVIDERS: PCP Internal Medicine; Visit Provider Internal Medicine Cardiovascular Disease
DX: I50.20 Unspecified systolic (congestive) heart failure (principal); I25.10 Atherosclerotic heart disease of native coronary artery without angina pectoris
CPT/HCPCS: 93010; 99214

== ENCOUNTER → 2024-02-08 09:13 | Outpatient (BNVA) | payer MEDICARE, MEDICAID, SELFPAY | PROVIDERS: PCP Internal Medicine; Visit Provider Internal Medicine Cardiovascular Disease | DX: I50.20 Unspecified systolic (congestive) heart failure (principal); I25.10 Atherosclerotic heart disease of native coronary artery without angina pectoris | CPT/HCPCS: 93005; 99212 ==

== ENCOUNTER → 2024-03-03 10:36 | Outpatient (REF) | payer MEDICARE, MEDICAID, SELFPAY ==
--- NOTE | 2024-03-03 10:39 | CA_ITS ---
Transthoracic Echocardiogram Patient (Last, First, Middle): Anjana Silva R Gender: Female Date of : 1945 Age: 78 Procedure Date: 03/03/2024 Procedure Type: Transthoracic Echocardiogram Location: OP Height: 157. cm Weight: 70.76 kg BSA: 1.72 m2 Heart Rate: 65 bpm BP: 130 / 80 mmHg Wharf Attendant: LAZARO Referring MD: Terell Macias MD Symptoms: I50.20 - Unspecified systolic (congestive) heart failure Study Quality: Fair ECG Rhythm: Sinus Conclusions: - Mildly increased left ventricular cavity size. There is normal left ventricular wall thickness. The left ventricular systolic function is moderately decreased. The visually estimated ejection fraction is between 30-35%. Reduced GLS -8.6%. - E/E prime ratio is >15, consistent with elevated filling pressures. - The inferior wall is akinetic. - There is mildly decreased right ventricular systolic function. Findings Left Ventricle Mildly increased left ventricular cavity size. There is normal left ventricular wall thickness. The left ventricular systolic function is moderately decreased. The visually estimated ejection fraction is between 30 35%. There is evidence of regional wall motion abnormalities. Abnormal diastolic function is noted. Spectral Doppler is indicative of an impaired relaxation filling pattern. E/E prime ratio is >15, consistent with elevated filling pressures. Wall Motion Rest Echo Findings The inferior wall is akinetic. Right Ventricle Normal right ventricular cavity size. There is mildly decreased right ventricular systolic function. Atria The left atrium is normal in size. Aortic Valve Normal aortic valve structure and function. There is no aortic valve stenosis. There is no aortic valve regurgitation. Mitral Valve Normal mitral valve structure and function. There is trace mitral valve regurgitation. There is no mitral valve stenosis. Pulmonic Valve The pulmonic valve is likely normal. Tricuspid Valve Normal tricuspid valve structure. There is trace tricuspid valve regurgitation. Tricuspid regurgitation envelope is inadequate for calculation of right ventricular systolic pressure. Normal right atrial pressure. Great Vessels All visible segments of the aorta are normal in size. The visualized portions of the pulmonary artery and branches are normal. Venous The inferior vena cava is normal in size and collapses greater than 50% with inspiration. Pericardium/Pleural There is no evidence of pericardial effusion. Prior Study Comparison Changes noted compared to prior study dated: 12/04/2022. Mild dilation LV, EF 30 to 35%, mild RV dysfunction. Measurements 2D Linear Measurements IVSd: 0.94 0.6-0.9/0.6-1.0 cm LVIDd: 5.94 3.9-5.3/4.2-5.9 cm LVIDd Index: 3.45 2.4-3.2/2.2-3.1 cm/m2 LVIDs: 4.98 2.0-3.6 cm LVPWd: 0.75 0.7-1.1 cm LA Diam: 3.20 2.7-3.8/3.0-4.0 cm LAIDs Index: 1.86 1.5-2.3 cm/m2 LV Mass: 245.27 67-162/88-224 g LV Mass Index: 142.60 43-95/49-115 g/m2 LVOT Diam: 2.00 3.0+(-)1.3 cm 2D Systolic Function EF 4C: 35.80 >55% EF 2C: 40.60 >55% EF BiP: 39.00 >55% Mitral Valve MV Pk E: 0.57 MV PK A: 0.96 MV Decel Time: 248.00 E/A: 0.60 E'Lateral: 2.84 E'Medial: 2.68 E/E' Med: 21.10 E/E' Lat: 19.90 PHT: 73.00 MVA PHT: 3.01 Decel [place]: 2.28 Aortic Valve AoV Pk Ethan: 1.40 AoV Mn Ethan: 1.05 AoV VTI: 0.33 AoV Pk Grad: 8.00 Aov Mn Grad: 5.00 RANDALL Cont.VTI: 2.00 LVOT LVOT Pk Ethan: 0.86 LVOT Mn Ethan: 0.65 LVOT VTI: 0.21 LVOT Pk Grad: 3.00 LVOT Mn Grad: 2.00 LVOT Diam: 2.00 LVOT Area: 3.14 Diastolic Function MV Pk E: 0.57 MV Pk A: 0.96 E/A: 0.60 E'Medial: 2.68 E/E' Med: 21.10 E' Laterial: 2.84 E/E' Lat: 19.90 Right Ventricle TAPSE (mm): 12.20 TVS' Ethan: 8.11 Tricuspid Valve RA Press: 3.00 Great Vessels Aorta Sinus of Valsalva: 3.00 2.0-3.5 cm Ao Asc: 3.10 2.1-3.4 cm Pulmonary Valve PV Pk Ethan: 0.71 Peak PV Grad: 2.00 Updated in Other Vendor System with Status of Final Josh Cain MD electronically signed on 03/05/2024 3:11:36 PM with status of Final
== END ==
LOC: HO.CARD 10:36
PROVIDERS: PCP Internal Medicine; Visit Provider Internal Medicine Cardiovascular Disease
DX: I50.20 Unspecified systolic (congestive) heart failure (principal)
CPT/HCPCS: 93306; 93356

== ENCOUNTER → 2024-03-03 10:39 | Outpatient (BNV) | payer MEDICARE, MEDICAID, SELFPAY | PROVIDERS: PCP Internal Medicine; Visit Provider Internal Medicine Cardiovascular Disease | DX: I50.20 Unspecified systolic (congestive) heart failure (principal); R93.1 Abnormal findings on diagnostic imaging of heart and coronary circulation | CPT/HCPCS: 93306; 93356 ==

== ENCOUNTER 2024-05-08 10:30 | Outpatient (REF) | payer MEDICARE, MEDICAID, SELFPAY ==
[2024-05-08 10:49] LABS: MANUAL DIFF FLAG NO
[2024-05-08 10:51] LABS: Basophils Percent Auto 0.7 % (0-2); Eosinophils Absolute Auto 0.2 X10*3/uL (0.0-0.4); Eosinophils Percent Auto 3.3 % (0-4); Hematocrit 37.2 % (37.0-47.0); Imm Gran Abs Auto 0.01 X10*3/uL (0.00-0.03); Imm Gran Pct Auto 0.2 % (0.0-0.4); Lymphocytes Absolute Auto 1.5 X10*3/uL (1.2-4.9); Lymphocytes Percent Auto 24.7 % (20-40); Mean Corpuscular HGB Conc 32.3 g/dl (31.0-35.0); Mean Corpuscular Hemoglobin 30.7 pg (27.0-33.0); Mean Corpuscular Volume 95.1 fL (80.0-98.0); Mean Platelet Volume 9.4 fL (9.4-12.3); Monocytes Absolute Auto 0.7 X10*3/uL (0.1-1.2); Monocytes Percent Auto 11.3 % (2-11); Neutrophils Absolute Auto 3.7 x10*3/uL (2.0-8.3); Neutrophils Percent Auto 59.8 % (45-73); Platelet Count 257 X10*3/uL (160-400); Red Blood Count 3.91 X10*6/uL (4.20-5.50); Red Cell Distribution Width 14.5 % (11.0-16.0); White Blood Count 6.1 X10*3/uL (4.8-10.8)
[2024-05-08 11:01] LABS: Estimated Average Glucose 137 mg/dL; Hemoglobin A1c % 6.4 % (<6.0)
[2024-05-08 11:41] LABS: Alanine Aminotransferase 13 U/L (0-31); Albumin Level 3.5 g/dL (3.5-5.0); Alkaline Phosphatase 70 U/L (39-117); Anion Gap 15 (12-20); Aspartate Amino Transferase 13 U/L (5-31); Bilirubin Total 0.5 mg/dL (0.0-1.0); Blood Urea Nitrogen 25 mg/dL (9-16); Calcium 9.1 mg/dL (8.4-10.2); Carbon Dioxide 22 mmol/L (22-29); Chloride 110 mmol/L (96-108); Estimated Glomerular Filt Rate 30; Glucose Random 137 mg/dL (60-115); Potassium 4.7 mmol/L (3.3-5.1); Sodium 142 mmol/L (135-145); Total Protein 6.6 g/dL (6.5-8.0)
[2024-05-08 14:02] LABS: Microalbum/Creatinine Ratio Ur 35.5 ug/mg cr (<30)
== END 2024-05-08 10:31 | disposition home or self-care (01) ==
LOC: HO.10HDL 10:30
PROVIDERS: Visit Provider Internal Medicine
DX: I25.10 Atherosclerotic heart disease of native coronary artery without angina pectoris (principal); J44.9 Chronic obstructive pulmonary disease, unspecified; I12.9 Hypertensive chronic kidney disease with stage 1 through stage 4 chronic kidney disease, or unspecified chronic kidney disease; E11.9 Type 2 diabetes mellitus without complications; I10 Essential (primary) hypertension; N18.9 Chronic kidney disease, unspecified
CPT/HCPCS: 36415; 80053; 82043; 82570; 83036; 85025

== ENCOUNTER 2024-05-15 10:38 | Outpatient (AMB) | payer MEDICARE, MEDICAID, SELFPAY ==
--- NOTE | 2024-05-15 10:41 | HO.NEPHOV_ITS ---
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 Required: No Accompanied by: Self / Same As Patient Allergies No Known Allergies [No Known Allergies*] Allergy (Verified 05/15/24 10:43) Medication List - Last Reconciled 05/15/24 by Matteo Rose MD aspirin (Adult Low Dose Aspirin) 81 mg PO DAILY atorvastatin 40 mg PO DAILY 90 days dulaglutide (Trulicity) 3 mg subcut QWEEK furosemide 20 mg PO .Twice a week gabapentin 100 mg PO BID glipizide 10 mg PO BID isosorbide mononitrate ER 30 mg PO DAILY metformin 1,000 mg PO BID metoprolol tartrate 100 mg PO BID 90 days nitroglycerin 0.3 mg sublingual Q5M PRN sacubitril-valsartan 24-26 mg 1 tab PO BID 90 days HPI Comments Details: Anjana is a pleasant elderly woman with a history of stage IIIB chronic kidney disease. Baseline creatinine is around 1.4-1.6 mg/dL. She has a history of diabetes mellitus 2009 and along with hypertension. Both have been under good control. Anjana has a history of stage III A T2 N2 lung adenocarcinoma diagnosed in March 2019. She has undergone left lingular segmentectomy and shivani dissection on 04/20/2019. She was started on adjuvant carboplatin/Alimta chemotherapy on 06/20/2019 and completed 4 cycles. She had mediastinal radiation in 2019 and completed in November of 2019. In July 2020 serum creatinine was 1.81 and as of February 2021 creatinine was 2.1 mg/dL. She also has a history of COPD which is under control. History of coronary disease and CHF. She is currently on Entresto. Today she has no new issues. [facility] Medical History CAD (coronary artery disease) COPD (chronic obstructive pulmonary disease) DM2 (diabetes mellitus, type 2) Emphysema lung Exercise hypoxemia Heart failure with reduced ejection fraction History of ST elevation myocardial infarction (STEMI) (~03/2013) HLD (hyperlipidemia) HTN (hypertension) Malignant neoplasm of upper lobe of left lung (~2018) On home O2 Personal history of nicotine dependence PVD (peripheral vascular disease) Tubular adenoma of colon Surgical History History of cardiac cath (~03/2013) History of lung surgery (~03/2019) History of bronchoscopy (~03/2019) History of colonoscopy (~12/2019) Social History Patient Tobacco Use Status: Former Tobacco user Physical Exam Vital Signs: Last Vital Signs Pulse 95 05/15/24 10:42 BP 110/62 05/15/24 10:42 Pulse Ox 76 L 05/15/24 10:42 Oxygen Delivery Method Room Air 05/15/24 10:42 BMI result Body Mass Index 28.5 Neck Neck: Yes supple Resp Auscultation: clear to auscultation bilaterally Cardio Palpation: no palpable S3 Heart sounds: no rubs GI Palpation (GI): Soft to palpation Auscultation: normal bowel sounds Neuro Motor exam (neuro): no asterixis Results Reviewed Nephrology Results: Hgb 12.0 g/dl (12.0-16.0) 05/08/24 WBC 6.1 X10*3/uL (4.8-10.8) 05/08/24 Plt Count 257 X10*3/uL (160-400) 05/08/24 Sodium 142 mmol/L (135-145) 05/08/24 Potassium 4.7 mmol/L (3.3-5.1) 05/08/24 Chloride 110 mmol/L (96-108) H 05/08/24 Carbon Dioxide 22 mmol/L (22-29) 05/08/24 BUN 25 mg/dL (9-16) H 05/08/24 Creatinine 1.67 mg/dL (0.5-1.4) H 05/08/24 Calcium 9.1 mg/dL (8.4-10.2) 05/08/24 Urine Creatinine 146.40 mg/dL 05/08/24 Assessment & Plan Assessment & Plan (1) CKD (chronic kidney disease) stage 3, GFR 30-59 ml/min: Code(s): N18.30 - Chronic kidney disease, stage 3 unspecified Category: Medical Plan: . Elderly woman with chronic kidney disease stage IIIB in the setting of longstanding hypertension diabetes mellitus and lung cancer status post the chemotherapy with carboplatin. She does not have significant proteinuria. 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 There could be some age-related nephron loss as well. However she has received carboplatin in the last which could have led to tubular damage. In any case renal function is stable at baseline with a creatinine 1.6. Goal is to slow the progression of renal disease. Continue to avoid nephrotoxic agents. . (2) Heart failure with reduced ejection fraction: Code(s): I50.20 - Unspecified systolic (congestive) heart failure Category: Medical Plan: . Well compensated. Currently on Entresto. Encouraged to follow-up with Dr. Macias Stay on low-sodium diet. Continue with current dose of Lasix . (3) Renal cyst: Comment: . As of 2020, Prominent pyramids right kidney with an anechoic cyst. No echogenic stone or hydronephrosis. Bosniak type II complex cyst midpole left kidney. No echogenic stones or caliectasis. Code(s): N28.1 - Cyst of kidney, acquired Category: Medical Plan: . Cyst has been stable. She underwent repeat ultrasonogram in [facility] few months ago. . . Orders: Orders Basic Metabolic Panel 3 Months N18.30 - Chronic kidney disease, stage 3 unspecified Coding Level of Care Code Est Pt Level 3 (94250) Diagnoses CKD (chronic kidney disease) stage 3, GFR 30-59 ml/min N18.30 Heart failure with reduced ejection fraction I50.20 Renal cyst N28.1
[2024-05-15 10:42] VITALS: BP 110/62; PULSE 95; O2SAT 76; BMI 28.5
== END 2024-05-15 10:50 | disposition home or self-care (01) ==
PROVIDERS: PCP Internal Medicine; Visit Provider Internal Medicine Hypertension Specialist
DX: N18.30 Chronic kidney disease, stage 3 unspecified (principal); I50.20 Unspecified systolic (congestive) heart failure; N28.1 Cyst of kidney, acquired
CPT/HCPCS: 99213

== ENCOUNTER → 2024-05-15 10:38 | Outpatient (BNVA) | payer MEDICARE, MEDICAID, SELFPAY | PROVIDERS: PCP Internal Medicine; Visit Provider Internal Medicine Hypertension Specialist | DX: N18.30 Chronic kidney disease, stage 3 unspecified (principal); N28.1 Cyst of kidney, acquired; I50.20 Unspecified systolic (congestive) heart failure | CPT/HCPCS: 99212 ==

== ENCOUNTER 2024-06-13 12:52 | Outpatient (REF) | payer MEDICARE, MEDICAID, SELFPAY ==
--- NOTE | ~2024-06-13 | US_ITS ---
EXAMINATION: Bilateral LOWER EXTREMITY DUPLEX CLINICAL INFORMATION: PAD COMPARISON: None TECHNIQUE: Real-time ultrasound and Doppler techniques (integrating B-mode 2-D vascular images, Doppler spectral analysis and color flow Doppler imaging) were utilized to interrogate the lower extremities. FINDINGS: RIGHT LEG: Common femoral artery: 126 cm/s, biphasic Profunda femoris artery: 42.3 cm/s, biphasic Superficial femoral artery (proximal): 74.1 cm/s, biphasic Superficial femoral artery (mid): 202 cm/s, biphasic Superficial femoral artery (distal): 138 cm/s, biphasic Proximal popliteal artery: 65.4 cm/s, biphasic Posterior tibial artery: 48 cm/s, biphasic LEFT LEG: Common femoral artery: 81.1 cm/s, biphasic Profunda femoris artery: 48.3 cm/s, biphasic SFA stents in place from a proximal to distal SFA. [place] artery proximal to stent: 88.1 cm/s, biphasic Proximal stent: 79.1 cm/s, biphasic Mid stent: 90.1 cm/s, biphasic Distal stent: 107 cm/s, biphasic [place] artery distal to stent: 72.2 cm/s, biphasic Popliteal artery: 69.8 cm/s, biphasic Posterior tibial artery: 45.5 cm/s, biphasic US/US arterial duplex LE BI IMPRESSION: 1. Right: There is a 50-75% stenosis of the mid superficial femoral artery. 2. Left: There is a patent left SFA stent. Electronically signed by: Coleman Pat MD 06/20/2024 11:45 AM EDT
== END 2024-06-13 12:53 | disposition home or self-care (01) ==
LOC: HO.US 12:52
PROVIDERS: PCP Internal Medicine; Visit Provider Internal Medicine
DX: I73.9 Peripheral vascular disease, unspecified (principal); I25.10 Atherosclerotic heart disease of native coronary artery without angina pectoris
CPT/HCPCS: 93925

== ENCOUNTER 2024-08-02 09:25 | Outpatient (REF) | payer MEDICARE, MEDICAID, SELFPAY ==
[2024-08-02 10:39] LABS: MANUAL DIFF FLAG NO
[2024-08-02 10:45] LABS: Basophils Absolute Auto 0.1 X10*3/uL (0.0-0.2); Basophils Percent Auto 0.8 % (0-2); Eosinophils Absolute Auto 0.2 X10*3/uL (0.0-0.4); Eosinophils Percent Auto 3.2 % (0-4); Hematocrit 38.1 % (37.0-47.0); Hemoglobin 12.2 g/dl (12.0-16.0); Imm Gran Abs Auto 0.02 X10*3/uL (0.00-0.03); Imm Gran Pct Auto 0.3 % (0.0-0.4); Lymphocytes Absolute Auto 1.5 X10*3/uL (1.2-4.9); Lymphocytes Percent Auto 24.9 % (20-40); Mean Corpuscular Hemoglobin 30.8 pg (27.0-33.0); Mean Corpuscular Volume 96.2 fL (80.0-98.0); Mean Platelet Volume 9.5 fL (9.4-12.3); Monocytes Absolute Auto 0.6 X10*3/uL (0.1-1.2); Monocytes Percent Auto 10.2 % (2-11); Neutrophils Absolute Auto 3.6 x10*3/uL (2.0-8.3); Neutrophils Percent Auto 60.6 % (45-73); Platelet Count 259 X10*3/uL (160-400); Red Blood Count 3.96 X10*6/uL (4.20-5.50); Red Cell Distribution Width 13.7 % (11.0-16.0); White Blood Count 5.9 X10*3/uL (4.8-10.8)
[2024-08-02 10:48] LABS: Appearance Urine Clear; Color Urine Yellow; Glucose Urine UA Negative (Negative); Leukocyte Esterase Urine Trace (Negative); Nitrite Urine Negative (Negative); PH 6.5 (5.0-9.0); Specific Gravity - Urine 1.015 (1.005-1.025); UMIC TRIGGER UA YES; Urine Blood Negative (Negative); Urine Ketones Negative (Negative); Urine Protein Negative (Neg-Trace)
[2024-08-02 10:53] LABS: Bacteria Urine None Seen (None Seen); Estimated Average Glucose 134 mg/dL; Hemoglobin A1C 141.5223 umol/L; Hemoglobin A1c % 6.3 % (<6.0); Hyaline Casts Urine 0-2 /LPF (0-2); RBC Urine 0-2 /HPF (0-2); Squamous Epithelial Cell Urine 0-2 /HPF (0-2); Total Hemoglobin (HGBA1C) 3100.7285 umol/L; WBC Urine 0-5 /HPF (0-5)
[2024-08-02 11:06] LABS: Alanine Aminotransferase 11 U/L (0-31); Albumin Level 3.6 g/dL (3.5-5.0); Alkaline Phosphatase 83 U/L (39-117); Anion Gap 13 (12-20); Aspartate Amino Transferase 16 U/L (5-31); Bilirubin Total 0.5 mg/dL (0.0-1.0); Blood Urea Nitrogen 21 mg/dL (9-16); Calcium 9.4 mg/dL (8.4-10.2); Carbon Dioxide 26 mmol/L (22-29); Chloride 109 mmol/L (96-108); Cholesterol 121 mg/dL (<200); Estimated Glomerular Filt Rate 30; Glucose Fasting 117 mg/dL (60-99); Glucose Random 116 mg/dL (60-115); HDL Cholesterol 37 mg/dL (>40); LDL Cholesterol Calculated 52 mg/dL (<100); Potassium 4.7 mmol/L (3.3-5.1); Sodium 143 mmol/L (135-145); Total Protein 7.1 g/dL (6.5-8.0); Triglycerides 164 mg/dL (<150)
[2024-08-02 11:12] LABS: Creatinine Urine 110.73 mg/dL; Microalbum/Creatinine Ratio Ur 36.1 ug/mg cr (<30)
[2024-08-02 11:22] LABS: Thyroid Stimulating Hormone 3.11 uIU/mL (0.32-4.0)
== END 2024-08-02 09:26 | disposition home or self-care (01) ==
LOC: HO.10HDL 09:25
PROVIDERS: Visit Provider Internal Medicine
DX: N18.30 Chronic kidney disease, stage 3 unspecified (principal); J44.9 Chronic obstructive pulmonary disease, unspecified; I25.10 Atherosclerotic heart disease of native coronary artery without angina pectoris; E11.9 Type 2 diabetes mellitus without complications; E78.00 Pure hypercholesterolemia, unspecified
CPT/HCPCS: 36415; 80048; 80053; 80061; 81001; 82043; 82570; 83036; 84443; 85025

== ENCOUNTER 2024-08-08 09:39 | Outpatient (AMB) | payer MEDICARE, MEDICAID, SELFPAY ==
[2024-08-08 09:47] VITALS: BP 124/74; PULSE 66; BMI 28.6
--- NOTE | 2024-08-08 09:47 | MHC.OFFVIS ---
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: No Allergies No Known Allergies [No Known Allergies*] Allergy (Verified 05/15/24 10:43) Medication List - Last Reconciled 08/08/24 by Terell Macias MD aspirin (Adult Low Dose Aspirin) 81 mg PO DAILY atorvastatin 40 mg PO DAILY 90 days dulaglutide (Trulicity) 3 mg subcut QWEEK furosemide 20 mg PO .Twice a week gabapentin 100 mg PO BID glipizide 10 mg PO BID isosorbide mononitrate ER 30 mg PO DAILY metformin 1,000 mg PO BID metoprolol tartrate 100 mg PO BID 90 days nitroglycerin 0.3 mg sublingual Q5M PRN sacubitril-valsartan 24-26 mg 1 tab PO BID 90 days HPI Comments Details: Anjana comes for follow-up. Overall she has been doing well. She has had no heart failure symptoms progressively. No worsening orthopnea, PND, leg edema. She does not measure weight on a regular basis. No worsening shortness of breath. No exertional chest pain. No lightheadedness, syncope, prolonged palpitation irregular heartbeat. Takes all her medications. Her renal function has remained stable. Her echocardiogram more recently shows further worsening of LVEF of 30 35% with inferior wall motion abnormality consistent with ischemic cardiomyopathy. [facility] Medical History Heart failure with reduced ejection fraction History of ST elevation myocardial infarction (STEMI) (~03/2013) On home O2 Personal history of nicotine dependence Malignant neoplasm of upper lobe of left lung (~2018) Tubular adenoma of colon COPD (chronic obstructive pulmonary disease) Exercise hypoxemia Emphysema lung DM2 (diabetes mellitus, type 2) HLD (hyperlipidemia) HTN (hypertension) PVD (peripheral vascular disease) CAD (coronary artery disease) Surgical History History of cardiac cath (~03/2013) History of lung surgery (~03/2019) History of bronchoscopy (~03/2019) History of colonoscopy (~12/2019) Social History Patient Tobacco Use Status: Former Tobacco user Review of Systems Const Denies chills, Denies fatigue, Denies fever(s), Denies frequent falls, Denies weakness, Denies weight gain and Denies weight loss ENT Denies dizziness Card Denies chest pain, Denies leg edema, Denies lightheadedness, Denies palpitations, Denies dyspnea, Denies dyspnea on exertion, Denies orthopnea and Denies other (loss of consciousness) Resp Denies cough, Denies dyspnea and Denies dyspnea on exertion GI Denies hematochezia and Denies change in stool character Musc Denies abnormal gait, Denies muscle weakness, Denies numbness, Denies radiating pain into limb and Denies tingling Neuro Denies Abnormal speech present, Denies abnormal gait, Denies dizziness, Denies frequent falls, Denies numbness, Denies tingling and Denies weakness Endo Denies fatigue and Denies palpitations Physical Exam Vital Signs: Last Vital Signs Pulse 66 08/08/24 09:47 BP 124/74 08/08/24 09:47 BMI result Body Mass Index 28.6 Const General: cooperative, comfortable, no acute distress, alert and awake Nutritional Appearance: overweight Orientation/consciousness: patient oriented x3 Limitations: no limitations Neck Neck: Yes trachea midline, Yes supple and Yes no JVD Resp Effort & Inspection: normal respiratory effort Auscultation: no wheezes and diminished lung sounds Cardio Jugular venous distension: no JVD Palpation: abnormal PMI Rate: regular rate Rhythm: regular rhythm Heart sounds: S1 normal heart sound present, S2 normal heart sound present, no click, no gallops and no murmurs GI Auscultation: normal bowel sounds Skin General skin exam: no rashes or lesions noted Neuro General: patient oriented x3 and no focal motor deficits Speech: No Abnormal speech present Extrem General: Yes no clubbing, cyanosis or edema Office Procedures EKG Details: EKG shows normal sinus rhythm with poor R-wave progression with diffuse T-wave changes in inferior and anterolateral leads [id number], Complete Assessment & Plan Assessment & Plan (1) Heart failure with reduced ejection fraction: Code(s): I50.20 - Unspecified systolic (congestive) heart failure Category: Medical Plan: Heart failure with reduced ejection fraction with NYHA class 2 symptoms with some of the symptoms may be related to rule out Lyme disease. Clinically euvolemic and well compensated. Her LV systolic function is further deteriorated despite adequate medical therapy most likely due to diffuse coronary disease. Encouraged to continue current neurohormonal modulation with Entresto as well as metoprolol therapy. She is taking this regularly. Continue current diuretic therapy with Lasix. Given her worsening LV ejection fraction with LVEF less than 35% we discussed about arrhythmic risk and need for ICD placement. She was a little surprised and wants to think about it. Based on the EKG she requires only primary prevention ICD. We discussed either with transvenous lead or subcutaneously lead. She wants to think about it and when she calls me back we will discuss about candidacy for subcutaneous lead. (2) CAD (coronary artery disease): Comment: (Hx STEMI 04/10/2013 - Cardiac Cath/?stent @ [facility] [place]) Code(s): I25.10 - Atherosclerotic heart disease of [place] coronary artery without angina pectoris Category: Medical Plan: CAD status post RCA stent with poor diffuse and significant distal disease. Clinically without any symptoms of angina at current point time. Continue low-dose aspirin therapy. Continue high-intensity statin therapy with well optimized LDL at current time. Continue aggressive blood pressure control which is currently well optimized. Target goal blood pressure less than 130/84. Encouraged to increase activity level as tolerated. Will follow up in the clinic in 6 months' time unless she has a ICD placed time will require follow-up after that. Coding Level of Care Code Est Pt Level 4 (56681) Complex EM visit Add On G2211 Diagnoses Heart failure with reduced ejection fraction I50.20 CAD (coronary artery disease) I25.10 CPT Codes EKG - CPT: 94026-[id number], Complete ([id number])
== END 2024-08-08 10:18 | disposition home or self-care (01) ==
PROVIDERS: PCP Internal Medicine; Visit Provider Internal Medicine Cardiovascular Disease
DX: I50.20 Unspecified systolic (congestive) heart failure (principal); I25.10 Atherosclerotic heart disease of native coronary artery without angina pectoris
CPT/HCPCS: 93010; 99214; G2211

== ENCOUNTER → 2024-08-08 09:39 | Outpatient (BNVA) | payer MEDICARE, MEDICAID, SELFPAY | PROVIDERS: PCP Internal Medicine; Visit Provider Internal Medicine Cardiovascular Disease | DX: I50.20 Unspecified systolic (congestive) heart failure (principal); I25.10 Atherosclerotic heart disease of native coronary artery without angina pectoris | CPT/HCPCS: 93005; 99212 ==

== ENCOUNTER 2024-08-22 12:52 | Outpatient (REF) | payer MEDICARE, MEDICAID, SELFPAY ==
--- NOTE | ~2024-08-22 | US_ITS ---
EXAMINATION: US TRIPLEX LOWER EXTREMITY, LEFT CLINICAL INFORMATION: Left leg edema COMPARISON: None available. TECHNIQUE: Color-flow triplex imaging with spectral analysis and compression Doppler were performed on the left lower extremity. FINDINGS: Respiratory variation, normal compression and augmented flow are noted throughout the left lower extremity. The visualized common femoral vein, superficial femoral vein, profunda femoral vein, popliteal vein and midcalf peroneal and posterior tibial venous segments show no evidence of deep venous thrombosis. There is a 16.5 x 1.3cm fluid collection in the popliteal fossa. US/US venous duplex LE LT IMPRESSION: No evidence of deep venous thrombosis involving the left lower extremity. Electronically signed by: Ashanti Harris MD 08/22/2024 02:12 PM EDT
== END 2024-08-22 12:53 | disposition home or self-care (01) ==
LOC: HO.US 12:52
PROVIDERS: PCP Internal Medicine; Visit Provider Internal Medicine
DX: R22.42 Localized swelling, mass and lump, left lower limb (principal)
CPT/HCPCS: 93971

== ENCOUNTER 2024-08-29 10:33 | Outpatient (REF) | payer MEDICARE, MEDICAID, SELFPAY ==
[2024-08-29 12:42] LABS: Anion Gap 16 (12-20); Blood Urea Nitrogen 26 mg/dL (9-16); Calcium 9.5 mg/dL (8.4-10.2); Carbon Dioxide 23 mmol/L (22-29); Chloride 107 mmol/L (96-108); Estimated Glomerular Filt Rate 28; Potassium 4.9 mmol/L (3.3-5.1); Sodium 141 mmol/L (135-145)
== END 2024-08-29 10:34 | disposition home or self-care (01) ==
LOC: HO.LAB 10:33
PROVIDERS: PCP Internal Medicine; Visit Provider Internal Medicine Nephrology
DX: N18.30 Chronic kidney disease, stage 3 unspecified (principal)
CPT/HCPCS: 36415; 80051; 82310; 82565; 84520

== ENCOUNTER 2024-09-05 10:09 | Outpatient (AMB) | payer MEDICARE, MEDICAID, SELFPAY ==
[2024-09-05 10:18] VITALS: BP 140/70; PULSE 77; O2SAT 98; BMI 28.9
--- NOTE | 2024-09-05 10:18 | HO.NEPHOV ---
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 Accompanied by: Self / Same As Patient Allergies No Known Allergies [No Known Allergies*] Allergy (Verified 09/05/24 10:20) Medication List - Last Reconciled 09/05/24 by Matteo Rose MD aspirin (Adult Low Dose Aspirin) 81 mg PO DAILY atorvastatin 40 mg PO DAILY 90 days dulaglutide (Trulicity) 3 mg subcut QWEEK furosemide 20 mg PO .Twice a week gabapentin 100 mg PO BID glipizide 10 mg PO BID isosorbide mononitrate ER 30 mg PO DAILY metformin 1,000 mg PO BID metoprolol tartrate 100 mg PO BID 90 days nitroglycerin 0.3 mg sublingual Q5M PRN sacubitril-valsartan 24-26 mg 1 tab PO BID 90 days HPI Comments Details: Anjana is a pleasant elderly woman with a history of stage IIIB chronic kidney disease. Baseline creatinine is around 1.4-1.6 mg/dL. She has a history of diabetes mellitus 2009 and along with hypertension. Both have been under good control. Anjana has a history of stage III A T2 N2 lung adenocarcinoma diagnosed in March 2019. She has undergone left lingular segmentectomy and shivani dissection on 04/20/2019. She was started on adjuvant carboplatin/Alimta chemotherapy on 06/20/2019 and completed 4 cycles. She had mediastinal radiation in 2019 and completed in November of 2019. In July 2020 serum creatinine was 1.81 and as of February 2021 creatinine was 2.1 mg/dL. She also has a history of COPD which is under control. History of coronary disease and CHF. She is currently on Entresto. Today she has no new issues. [facility] Medical History Heart failure with reduced ejection fraction History of ST elevation myocardial infarction (STEMI) (~03/2013) On home O2 Personal history of nicotine dependence Malignant neoplasm of upper lobe of left lung (~2018) Tubular adenoma of colon COPD (chronic obstructive pulmonary disease) Exercise hypoxemia Emphysema lung DM2 (diabetes mellitus, type 2) HLD (hyperlipidemia) HTN (hypertension) PVD (peripheral vascular disease) CAD (coronary artery disease) Surgical History History of cardiac cath (~03/2013) History of lung surgery (~03/2019) History of bronchoscopy (~03/2019) History of colonoscopy (~12/2019) Social History Patient Tobacco Use Status: Former Tobacco user Physical Exam Vital Signs: Last Vital Signs Pulse 77 09/05/24 10:18 BP 140/70 H 09/05/24 10:18 Pulse Ox 98 09/05/24 10:18 Oxygen Delivery Method Room Air 09/05/24 10:18 BMI result Body Mass Index 28.9 Neck Neck: Yes supple Resp Auscultation: clear to auscultation bilaterally Cardio Palpation: no palpable S3 Heart sounds: no rubs GI Palpation (GI): Soft to palpation Auscultation: normal bowel sounds Neuro Motor exam (neuro): no asterixis Results Reviewed Nephrology Results: Hgb 12.2 g/dl (12.0-16.0) 08/02/24 WBC 5.9 X10*3/uL (4.8-10.8) 08/02/24 Plt Count 259 X10*3/uL (160-400) 08/02/24 Sodium 141 mmol/L (135-145) 08/29/24 Potassium 4.9 mmol/L (3.3-5.1) 08/29/24 Chloride 107 mmol/L (96-108) 08/29/24 Carbon Dioxide 23 mmol/L (22-29) 08/29/24 BUN 26 mg/dL (9-16) H 08/29/24 Creatinine 1.77 mg/dL (0.5-1.4) H 08/29/24 Calcium 9.5 mg/dL (8.4-10.2) 08/29/24 Urine Protein Negative mg/dL (Neg-Trace) 08/02/24 Urine Creatinine 110.73 mg/dL 08/02/24 Assessment & Plan Assessment & Plan (1) CKD (chronic kidney disease) stage 3, GFR 30-59 ml/min: Code(s): N18.30 - Chronic kidney disease, stage 3 unspecified Category: Medical Plan: . Elderly woman with chronic kidney disease stage IIIB in the setting of longstanding hypertension diabetes mellitus and lung cancer status post the chemotherapy with carboplatin. She does not have significant proteinuria. 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 There could be some age-related nephron loss as well. However she has received carboplatin in the last which could have led to tubular damage. In any case renal function is stable at baseline with a creatinine 1.6 to 1.7 Goal is to slow the progression of renal disease. Continue to avoid nephrotoxic agents. . (2) Heart failure with reduced ejection fraction: Code(s): I50.20 - Unspecified systolic (congestive) heart failure Category: Medical Plan: . Well compensated. Currently on Entresto. Encouraged to follow-up with Dr. Macias Stay on low-sodium diet. Continue with current dose of Lasix . (3) Renal cyst: Comment: . As of 2020, Prominent pyramids right kidney with an anechoic cyst. No echogenic stone or hydronephrosis. Bosniak type II complex cyst midpole left kidney. No echogenic stones or caliectasis. Code(s): N28.1 - Cyst of kidney, acquired Category: Medical Plan: . Cyst has been stable. She underwent repeat ultrasonogram in [facility] few months ago. . . Orders: Orders Basic Metabolic Panel 4 Months N18.30 - Chronic kidney disease, stage 3 unspecified Complete Blood Count no Diff 4 Months N18.30 - Chronic kidney disease, stage 3 unspecified Parathyroid Hormone Intact 4 Months N18.30 - Chronic kidney disease, stage 3 unspecified UA and rflx microscopic 4 Months N18.30 - Chronic kidney disease, stage 3 unspecified Coding Level of Care Code Est Pt Level 4 (01671) Diagnoses CKD (chronic kidney disease) stage 3, GFR 30-59 ml/min N18.30 Heart failure with reduced ejection fraction I50.20 Renal cyst N28.1
== END 2024-09-05 10:40 | disposition home or self-care (01) ==
PROVIDERS: PCP Internal Medicine; Visit Provider Internal Medicine Hypertension Specialist
DX: N18.30 Chronic kidney disease, stage 3 unspecified (principal); I50.20 Unspecified systolic (congestive) heart failure; N28.1 Cyst of kidney, acquired
CPT/HCPCS: 99214

== ENCOUNTER → 2024-09-05 10:09 | Outpatient (BNVA) | payer MEDICARE, MEDICAID, SELFPAY | PROVIDERS: PCP Internal Medicine; Visit Provider Internal Medicine Hypertension Specialist | DX: N18.30 Chronic kidney disease, stage 3 unspecified (principal); I50.20 Unspecified systolic (congestive) heart failure; N28.1 Cyst of kidney, acquired | CPT/HCPCS: 99212 ==

== ENCOUNTER 2024-10-09 08:39 | Outpatient (REF) | payer MEDICARE, MEDICAID, SELFPAY | END 2024-10-09 08:40 | disposition home or self-care (01) | LOC: HO.MAMMO 08:39 | PROVIDERS: PCP Internal Medicine; Visit Provider Internal Medicine | DX: Z12.31 Encounter for screening mammogram for malignant neoplasm of breast (principal) | CPT/HCPCS: 77063; 77067 ==

== ENCOUNTER → 2024-10-09 09:00 | Outpatient (BNV) | payer MEDICARE, MEDICAID, SELFPAY | PROVIDERS: PCP Internal Medicine; Visit Provider Internal Medicine | DX: Z12.31 Encounter for screening mammogram for malignant neoplasm of breast (principal) | CPT/HCPCS: 77063; 77067 ==

== ENCOUNTER 2024-11-29 14:37 | Emergency (ER) | payer MEDICARE, MEDICAID, SELFPAY ==
--- NOTE | ~2024-11-29 | CT_ITS ---
CLINICAL HISTORY: neck trauma CT cervical spine without contrast Comparison: None Findings: Vertebral alignment is within normal limits. Multilevel degenerative disc disease and facet osteoarthritis. This is most pronounced at C5-C6 where there is [id number] central canal stenosis. No acute fractures or dislocations. No acute findings on limited view of the intracranial contents. Soft tissues of the neck are normal. Lung apices are clear. IMPRESSION: No cervical spine fracture. This document has been electronically signed by: Alexus Webb MD on 11/29/2024 18:34:18
--- NOTE | ~2024-11-29 | XR_ITS ---
EXAMINATION: XR CHEST CLINICAL INFORMATION: weakness COMPARISON: 05/12/2020. TECHNIQUE: Frontal view of the chest was obtained. FINDINGS: The cardiac, hilar, and mediastinal contours are normal. The aorta is calcified. Postop changes in the left midlung with suture line. Mild left lung volume loss. Minimal scarring/atelectasis left base. Lungs otherwise clear. No effusions or pneumothoraces. No focal soft tissue or osseous abnormality. There are spinal degenerative changes. XR/XR chest 1V IMPRESSION: 1. No active pulmonary disease. Chronic postop changes left lung. Electronically signed by: Giovanni Stein MD 11/29/2024 03:43 PM EST
--- NOTE | ~2024-11-29 | CT_ITS ---
CLINICAL HISTORY: head trauma CT head without contrast Comparison: None Findings: 5.0 x 3.5 x 3.0 cm complex intra-axial mass containing both solid and cystic components within the right cerebellar hemisphere. Adjacent vasogenic edema. Midline shift at the level of the cerebellum estimated at 8 mm. Mass effect on the 4th ventricle with moderate narrowing. Borderline ventriculomegaly. No intracranial hemorrhage. Involutional change brain parenchyma, compatible with age. Moderate white matter disease.. There is no sinus or mastoid fluid. The orbits are within normal limits. No skull fracture. IMPRESSION: 1. No skull fracture or intracranial hemorrhage. 2. 5 cm mass within the right cerebellar hemisphere, compatible with neoplasm. Associated mass effect with cerebellar midline shift and narrowing of the 4th ventricle. Borderline ventriculomegaly. Recommend further evaluation with contrast-enhanced MRI. This document has been electronically signed by: Alexus Webb MD on 11/29/2024 18:33:52
[2024-11-29 15:16] VITALS: BP 176/93; PULSE 98; RESP 18; TEMP 36.4; O2SAT 100; BMI 25.6
--- NOTE | 2024-11-29 15:20 | ECG_ITS ---
Test Reason : dizziness Blood Pressure : */* mmHG Vent. Rate : 82 BPM Atrial Rate : 82 BPM P-R Int : 156 ms QRS Dur : 88 ms QT Int : 436 ms P-R-T Axes : 74 30 254 degrees QTcB Int : 509 ms Sinus rhythm with Premature atrial complexes ST & T wave abnormality, consider inferolateral ischemia Abnormal ECG When compared with ECG of 12-May-2020 16:07, Premature atrial complexes are now Present QRS duration has decreased Referred By: Viviana Parker Electronically Signed By: Josh Cain
--- NOTE | 2024-11-29 15:27 | ED.WEAKNESS ---
HPI - Weakness General Chief complaint: General Medical Stated complaint: Weakness Time Seen by Provider: 11/29/24 15:21 Source: patient, EMS and old records reviewed Mode of arrival: EMS Limitations: no limitations History of Present Illness ED Provider: VALENTIN VELAZQUEZ Narrative: 79 yo female with PMH of CHF reduced EF, CAD, HLD, HTN, PVD, DM2, COPD, lung cancer 2019, not on blood thinners here with c/o not feeling well x 1 week with nausea / vomiting and frequent falls. She thinks she hit her head and had a LOC unclear downtime. She denies any other injuries. She has not had CP/SOB, abdominal pain, black of bloody stools, fevers, urinary symptoms. She states she just doesn't feel good. Her brother lives with her and he has no symptoms. She feels when she walks she is off balance. She came today because she fell again. pulmonology hx (3) Malignant neoplasm of upper lobe of left lung: Onset Date: ~2018 Comment: (Stage III Adenocarcinoma - s/p lingulectomy 2018, adjuvant chemo + radiation completed in 11/2019) MD Complaint: generalized weakness Onset (ago): day(s) (7) Duration: progressively worsening Location: generalized Severity: moderate Relieving factors: rest Exacerbating factors: movement and exertion Context: other Associated symptoms: loss of appetite and nausea/vomiting Related Data Home Medications ?Medication ?Instructions ?Recorded ?Confirmed gabapentin 100 mg capsule 100 mg PO BID 08/28/20 09/05/24 aspirin 81 mg tablet,delayed 81 mg PO DAILY 08/08/21 09/05/24 release (Adult Low Dose Aspirin) furosemide 20 mg tablet 20 mg PO .Twice a week 12/15/22 09/05/24 dulaglutide 3 mg/0.5 mL 3 mg subcut QWEEK 06/15/23 09/05/24 subcutaneous pen injector (Trulicity) glipizide 5 mg tablet 10 mg PO BID 06/15/23 09/05/24 isosorbide mononitrate 30 mg 30 mg PO DAILY 06/15/23 09/05/24 tablet,extended release 24 hr metformin 500 mg tablet 1,000 mg PO BID 06/15/23 09/05/24 Previous Rx's ?Medication ?Instructions ?Recorded nitroglycerin 0.3 mg sublingual 0.3 mg sublingual Q5M PRN chest 11/16/23 tablet pain #30 tabs metoprolol tartrate 100 mg tablet 100 mg PO BID 90 days #180 tabs 06/21/24 sacubitril 24 mg-valsartan 26 mg 1 tab PO BID 90 days #180 tabs 07/28/24 tablet atorvastatin 40 mg tablet 40 mg PO DAILY 90 days #90 tabs 10/19/24 Allergies Allergy/AdvReac Type Severity Reaction Status Date / Time No Known Allergies Allergy Verified 11/29/24 15:17 [No Known Allergies*] Review of Systems Review of Systems: Constitutional : No Fever, No Chills, pos Fatigue ENT/Mouth : No sore throat, No Rhinorrhea Eyes: No Eye Pain, No Swelling, No Redness Cardiovascular : No Chest Pain, No SOB, No Dyspnea on Exertion Respiratory : No Cough, No Sputum Gastrointestinal : No Nausea, No Vomiting, No Diarrhea, No abdominal Pain Genitourinary : No Dysuria, No Urinary Frequency, No Hematuria, Musculoskeletal : No joint pain, No Myalgias, No Joint Swelling Skin : No Skin Lesions, No rash Neuro : pos Weakness, No Numbness, No Dizziness, no Headache All other systems reviewed and are negative PMFSH Past Medical History Attestation statement: The following information was validated with the patient. Source: old records reviewed Medical History Heart failure with reduced ejection fraction History of ST elevation myocardial infarction (STEMI) (~03/2013) On home O2 Personal history of nicotine dependence Malignant neoplasm of upper lobe of left lung (~2018) Tubular adenoma of colon COPD (chronic obstructive pulmonary disease) Exercise hypoxemia Emphysema lung DM2 (diabetes mellitus, type 2) HLD (hyperlipidemia) HTN (hypertension) PVD (peripheral vascular disease) CAD (coronary artery disease) Surgical History History of cardiac cath (~03/2013) History of lung surgery (~03/2019) History of bronchoscopy (~03/2019) History of colonoscopy (~12/2019) Social History Social History Patient Tobacco Use Status: Former Tobacco user Advance Directives: No Advance Directives Information Provided: No Physical Exam Vital Signs: Vital Signs: Last Vital Signs Temp 97.6 F 11/29/24 21:05 Pulse 95 11/29/24 21:05 Resp 20 11/29/24 21:05 BP 177/89 H 11/29/24 21:05 Pulse Ox 100 11/29/24 21:05 O2 Del Method Room Air 11/29/24 21:05 BMI result Body Mass Index 25.6 Appearance: Alert. Oriented X3. No acute distress. Eyes: Pupils equal, round and reactive to light. ENT: Pharynx mild mucous membranes Neck: Normal inspection. Neck supple. CVS: Normal heart rate and rhythm. Pulses normal. Respiratory: No respiratory distress. Breath sounds normal. Abdomen: Soft and nontender. Skin: Skin warm and dry. pale skin color. Normal skin turgor. Extremities: No lower extremity edema. No calf ttp Neuro: Oriented X 3. No motor deficit. No sensory deficit. CN2-12 intact, smile intact, EOMi, cannot stand she is too dizzy and almost falls over Course Course Course Narrative: at this time suspect lactic acidosis due to dehydration and not infection or severe sepsis 1 week of dizziness out of stroke window if posterior Reevaluation(s) Reevaluation #1: GCS 15 no vomiting but cannot stand closed to transfers [facility] call to [facility] [place]: 650pm accepted to [facility] [place] Medications Administered Discontinued Medications Generic Name Dose Route Start Last Admin Trade Name Freq PRN Reason Stop Dose Admin Dexamethasone Sodium Phosphate 8 mg 11/29/24 18:36 11/29/24 18:58 Dexamethasone Sod Phosphate 4 Mg/Ml Vial IVPUSH 11/29/24 18:37 8 mg ONCE ONE Administration Lactated Ringer's 1,000 mls @ 999 mls/hr 11/29/24 15:51 11/29/24 18:45 Lr IV 11/29/24 16:51 Infused .Q1H1M ONE Infusion Magnesium Sulfate 2 gm in 50 mls @ 25 mls/hr 11/29/24 15:51 11/29/24 18:45 Magnesium Sulfate/H2o IV 11/29/24 17:50 Infused ONCE ONE Infusion Ondansetron HCl 4 mg 11/29/24 15:51 11/29/24 16:14 Ondansetron Hcl 4 Mg/2 Ml Vial IVPUSH 11/29/24 15:52 4 mg ONCE ONE Administration Medical Decision Making Medical Decision Making MDM Narrative: 79 yo female with PMH of CHF reduced EF, CAD, HLD, HTN, PVD, DM2, COPD, lung cancer 2019, not on thinners here with c/o falls, weakness, n/v x 1 week but denies CP/SOB she has also hit her head and had 10+ falls in a week. At this time will obtain basic labs, CXR, CT head/cspine for trauma, subacute stroke, mass, cpk level, UA, viral panel - IVF and zofran ordered. Differential Diagnosis Differential Diagnoses: The differential diagnosis associated with the presentation includes dehydration, JP, anemia, prior stroke, viral syndrome, mass Admission/Observation Consideration of admission/observation: Escalation of care including admission/observation considered transfer to tertiary center given mass patient was notified and is aware Consult Healthcare Provider Management of the patient was discussed with: Millinery Salesperson Lab Data MDM Lab Attestation statement: I reviewed the patient's lab results. suspect lactic acidosis due to metformin use 11/29/24 16:01 11/29/24 16:01 Labs: Lab Results 11/29/24 11/29/24 11/29/24 Range/Units 16:01 18:31 18:45 WBC 6.1 (4.8-10.8) X10*3/uL RBC 4.65 (4.20-5.50) X10*6/uL Hgb 14.2 (12.0-16.0) g/dl Hct 41.6 (37.0-47.0) % MCV 89.5 (80.0-98.0) fL MCH 30.5 (27.0-33.0) pg MCHC 34.1 (31.0-35.0) g/dl RDW 14.4 (11.0-16.0) % Plt Count 201 (160-400) X10*3/uL MPV 10.3 (9.4-12.3) fL Immature Gran % (Auto) 0.5 H (0.0-0.4) % Neut % (Auto) 71.0 (45-73) % Lymph % (Auto) 16.7 L (20-40) % Lanier % (Auto) 11.1 H (2-11) % Eos % (Auto) 0.2 (0-4) % Baso % (Auto) 0.5 (0-2) % Lymph # (Auto) 1.0 L (1.2-4.9) X10*3/uL Lanier # (Auto) 0.7 (0.1-1.2) X10*3/uL Eos # (Auto) 0.0 (0.0-0.4) X10*3/uL Baso # (Auto) 0.0 (0.0-0.2) X10*3/uL Abs Immat Gran (auto) 0.03 (0.00-0.03) X10*3/uL Absolute Neuts (auto) 4.3 (2.0-8.3) x10*3/uL Absolute Nucleated RBC 0.000 (0.0-0.012) X10*3/uL Nucleated RBC % (auto) 0.0 (0.0-0.2) /100WBC PT 12.3 (10.9-12.4) SEC INR 1.1 (0.9-1.1) Sodium 144 (135-145) mmol/L Potassium 3.9 D (3.3-5.1) mmol/L Chloride 108 (96-108) mmol/L Carbon Dioxide 21 L (22-29) mmol/L Anion Gap 19 (12-20) BUN 16 (9-16) mg/dL Creatinine 1.24 (0.5-1.4) mg/dL Estim Creat Clear Calc 32.1 Estimated GFR 42 Random Glucose 120 H (60-115) mg/dL Lactic Acid 2.4 H* (0.5-2.0) mmol/L Lactic Acid F/U @ 2Hr 3.6 H* (0.5-2.0) mmol/L Calcium 10.0 (8.4-10.2) mg/dL Magnesium 1.7 (1.6-2.6) mg/dL Total Bilirubin 1.1 H (0.0-1.0) mg/dL Direct Bilirubin 0.5 (0.0-0.5) mg/dL AST 26 (5-31) U/L ALT < 6 (0-31) U/L Alkaline Phosphatase 97 (39-117) U/L Total Creatine Kinase 79 (26-140) U/L Troponin I High Sens 24.3 H 25.5 H (<3.5-17.0) ng/L B-Natriuretic Peptide 455 H (<100) pg/mL Total Protein 7.5 (6.5-8.0) g/dL Albumin 3.6 (3.5-5.0) g/dL Lipase 42 (8-78) U/L Urine Color Yellow Urine Appearance Clear Urine pH 6.0 (5.0-9.0) Ur Specific [place] 1.010 (1.005-1.025) Urine Protein Negative (Neg-Trace) mg/dL Urine Glucose (UA) Negative (Negative) mg/dL Urine Ketones 15 (Negative) mg/dL Urine Blood Negative (Negative) Urine Nitrite Negative (Negative) Ur Leukocyte Esterase Negative (Negative) Influenza Type A (PCR) NEGATIVE (Negative) Influenza Type B (PCR) NEGATIVE (Negative) RSV RNA Qual (PCR) NEGATIVE (Negative) SARS-CoV-2 RNA (RT-PCR) NEGATIVE (Negative) Independent Interpretation I performed an independent interpretation of an: EKG, Plain X-Ray (no mass) and CT Scan Interpretation: Rate: 82 Rhythm: NSR Anthon: normal Normal P waves. Normal CONSUELO. Normal QRS complex. ST T wave : nonspecific ST T wave changes inf and lateral leads qTC: 509 prior studies: no sig change from prior The study has been interpreted contemporaneously by me. FINDINGS: The cardiac, hilar, and mediastinal contours are normal. The aorta is calcified. Postop changes in the left midlung with suture line. Mild left lung volume loss. Minimal scarring/atelectasis left base. Lungs otherwise clear. No effusions or pneumothoraces. No focal soft tissue or osseous abnormality. There are spinal degenerative changes. XR/XR chest 1V IMPRESSION: 1. No active pulmonary disease. Chronic postop changes left lung. CT head without contrast Comparison: None Findings: 5.0 x 3.5 x 3.0 cm complex intra-axial mass containing both solid and cystic components within the right cerebellar hemisphere. Adjacent vasogenic edema. Midline shift at the level of the cerebellum estimated at 8 mm. Mass effect on the 4th ventricle with moderate narrowing. Borderline ventriculomegaly. No intracranial hemorrhage. Involutional change brain parenchyma, compatible with age. Moderate white matter disease.. There is no sinus or mastoid fluid. The orbits are within normal limits. No skull fracture. IMPRESSION: 1. No skull fracture or intracranial hemorrhage. 2. 5 cm mass within the right cerebellar hemisphere, compatible with neoplasm. Associated mass effect with cerebellar midline shift and narrowing of the 4th ventricle. Borderline ventriculomegaly. Recommend further evaluation with contrast-enhanced MRI. CLINICAL HISTORY: neck trauma CT cervical spine without contrast Comparison: None Findings: Vertebral alignment is within normal limits. Multilevel degenerative disc disease and facet osteoarthritis. This is most pronounced at C5-C6 where there is [id number] central canal stenosis. No acute fractures or dislocations. No acute findings on limited view of the intracranial contents. Soft tissues of the neck are normal. Lung apices are clear. IMPRESSION: No cervical spine fracture. Radiology Impression Discussion of test interpretation with radiology: I have reviewed the radiologist's reading. Independent Historian Clinical information obtained from an independent historian. History obtained from or confirmed by: EMS External Record Review External record reviewed: Outpatient record Critical Care Time Critical Care Time Critical Care Time: Yes Total Critical Care Time: 60 Attestation: consult, transfer to tertiary center given large cerebellar mass, review of records I attest to this time spent taking care of the patient Discharge Plan Discharge Clinical Impression: Cerebellar mass, Ataxia, Acidosis, lactic Patient Disposition: [facility] Transfer Details: robi Prescriptions: No Action nitroglycerin 0.3 mg tablet, sublingual 0.3 mg sublingual Q5M PRN (Reason: chest pain) Qty: 30 3RF Rx Instructions: do not exceed 3 doses per episode metoprolol tartrate 100 mg tablet 100 mg PO BID 90 Days Qty: 180 3RF sacubitril-valsartan 24-26 mg tablet 1 tab PO BID 90 Days Qty: 180 3RF atorvastatin 40 mg tablet 40 mg PO DAILY 90 Days Qty: 90 3RF gabapentin 100 mg capsule 100 mg PO BID furosemide 20 mg tablet 20 mg PO .Twice a week isosorbide mononitrate 30 mg tablet extended release 24 hr 30 mg PO DAILY glipizide 5 mg tablet 10 mg PO BID Trulicity 3 mg/0.5 mL pen injector 3 mg subcut QWEEK metformin 500 mg tablet 1,000 mg PO BID aspirin [Adult Low Dose Aspirin] 81 mg tablet,delayed release (DR/EC) 81 mg PO DAILY Interventions: Acute Care Transfer Worksheet (ED) Last Done: 11/29/24 21:05 Discharge Date/Time: 11/29/24 21:18 Print Language: Sudanese
[2024-11-29 16:12] LABS: MANUAL DIFF FLAG NO
[2024-11-29 16:14] LABS: Basophils Percent Auto 0.5 % (0-2); Eosinophils Percent Auto 0.2 % (0-4); Hematocrit 41.6 % (37.0-47.0); Hemoglobin 14.2 g/dl (12.0-16.0); Imm Gran Abs Auto 0.03 X10*3/uL (0.00-0.03); Imm Gran Pct Auto 0.5 % (0.0-0.4); Lymphocytes Percent Auto 16.7 % (20-40); Mean Corpuscular HGB Conc 34.1 g/dl (31.0-35.0); Mean Corpuscular Hemoglobin 30.5 pg (27.0-33.0); Mean Corpuscular Volume 89.5 fL (80.0-98.0); Mean Platelet Volume 10.3 fL (9.4-12.3); Monocytes Absolute Auto 0.7 X10*3/uL (0.1-1.2); Monocytes Percent Auto 11.1 % (2-11); Neutrophils Absolute Auto 4.3 x10*3/uL (2.0-8.3); Platelet Count 201 X10*3/uL (160-400); Red Blood Count 4.65 X10*6/uL (4.20-5.50); Red Cell Distribution Width 14.4 % (11.0-16.0); White Blood Count 6.1 X10*3/uL (4.8-10.8)
[2024-11-29] MEDS: Magnesium Sulfate/H2O 2 GM/50 ML PIGGYBACK IV (16:14)
[2024-11-29] MEDS: ondansetron HCL 4 MG/2 ML VIAL IVPUSH (16:14)
[2024-11-29 16:20] LABS: INTERNATIONAL NORM RATIO 1.1 (0.9-1.1); Prothrombin Time 12.3 SEC (10.9-12.4)
--- OUTSIDE RECORDS SUMMARY | 2024-11-29 16:24 | XMS_ITS | Clinical Summary ---
Author Organization [facility] Address [address] [place] [address] Care Team Providers Care Regional Ehs Manager Name Role Phone Hayden Canchola MD Primary Care Provider [phone] Allergies No known active allergies Medications Medication Sig Dispensed Refills Start Date End Date Status aspirin 81 mg EC tablet Take 1 tablet (81 mg total) by mouth 1 (one) time each day. Active dulaglutide (TRULICITY) 0.75 mg/0.5 mL pen injector injection Inject under the skin. Active atorvastatin (LIPITOR) 40 mg tablet Take 1 tablet (40 mg total) by mouth 1 (one) time each day. Active furosemide (LASIX) 20 mg tablet Take 1 tablet (20 mg total) by mouth 2 (two) times a day. Every other day Active gabapentin (NEURONTIN) 100 mg capsule Take 1 capsule (100 mg total) by mouth 3 (three) times a day. Active glipiZIDE (GLUCOTROL) 5 mg tablet Take 1 tablet (5 mg total) by mouth 2 (two) times a day before breakfast and dinner. Active isosorbide mononitrate (IMDUR) 30 mg 24 hr tablet Take 1 tablet (30 mg total) by mouth daily. Active metoprolol tartrate (LOPRESSOR) 100 mg tablet Take 1 tablet (100 mg total) by mouth 2 (two) times a day. Active nitroglycerin (NITROSTAT) 0.[address] 1 tablet (0.4 mg total) under the tongue every 5 (five) minutes as needed for chest pain. Active sacubitriL-valsartan (ENTRESTO) 24-26 mg per tablet Take 1 tablet by mouth 2 (two) times a day. Active Active Problems Problem Noted Date Diagnosed Date Primary adenocarcinoma of upper lobe of left fallon g 06/16/2019 Social History Tobacco Use Types Packs/Day Years Used Date Smoking Tobacco: Never Assessed Sex and Gender Information Value Date Recorded Sex Assigned at Not on file Gender Identity Not on file Sexual Orientation Not on file Obstetrics History Last Filed Vital Signs Vital Sign Reading Time Taken Comments Blood Pressure 136/61 07/20/2024 9:36 AM EDT Pulse 69 07/20/2024 9:36 AM EDT Temperature - - Respiratory Rate - - Oxygen Saturation - - Inhaled Oxygen Concentration - - Weight 69.4 kg (153 lb) 07/20/2024 9:36 AM EDT Height 154.9 cm (5' 1 ) 07/20/2024 9:36 AM EDT Body Mass Index 28.91 07/20/2024 9:36 AM EDT Plan of Treatment Upcoming Encounters Date Type Department Care Team (Late st Contact Info) Description 01/12/2025 9:30 AM EDT Office Visit [facility] [address] [place] [address] Coleman Faye MD [address] [place] [id number] Health Maintenance Due Date Last Done Comments COVID-19 Vaccine (#1) 1950 DTaP,Tdap,and Td Vaccines (1 - Tdap) 1964 Zoster Vaccines (1 of 2) 1964 RSV Immunization Patients 60+ Years Old (1 - 1-dose 75+ series) 2020 Cholesterol Screening (Lipid Panel) 10/02/2022 Depression Screening 10/02/2022 Falls Risk Assessment 10/02/2022 Hepatitis C Screening 10/02/2022 Lung Cancer Screening (Low Dose CT) 10/02/2022 Osteoporosis Screening (Bone Density Screening) 10/02/2022 Social Influencers of Health Screening 10/02/2022 Medicare Annual Wellness Visit 08/12/2023 08/12/2022 Pneumococcal Vaccine: 65+ Years (3 of 3 - PCV) 08/12/2023 08/12/2022, 01/28/2018 Influenza Vaccine (#1) 2024 3, 08/05/2022, 08/27/2021, Additional history exists HIB Vaccines Aged Out No longer eligi ble based on patient's age to complete this topic HPV Vaccines Aged Out No longer eligi ble based on patient's age to complete this topic Hepatitis A Vaccines Aged Out No long er eligible based on patient's age to complete this topic Hepatitis B Vaccines Aged Out No long er eligible based on patient's age to complete this topic IPV Vaccines Aged Out No longer eligi ble based on patient's age to complete this topic MMR Vaccines Aged Out No longer eligi ble based on patient's age to complete this topic Meningococcal ACWY Vaccine Aged Out N o longer eligible based on patient's age to complete this topic RSV Immunization Patients Under 20 months Aged Out No longer eligible based on patient's age to complete this topic Varicella Vaccines Aged Out No longer eligible based on patient's age to complete this topic Advance Directives Documents on File Type Date Recorded 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 Expl anation Health Care Decision (hx) 09/08/2019 AD JUAREZ DIRECTIVE Health Care Decision (hx) 09/08/2019 AD JUAREZ DIRECTIVE Health Care Decision (hx) 09/08/2019 AD JUAREZ DIRECTIVE Health Care Decision (hx) 09/08/2019 AD JUAREZ DIRECTIVE Health Care Decision (hx) 09/08/2019 AD JUAREZ DIRECTIVE Health Care Decision (hx) 09/08/2019 AD JUAREZ DIRECTIVE Health Care Decision (hx) 09/08/2019 AD JUAREZ DIRECTIVE Health Care Decision (hx) 09/08/2019 AD JUAREZ DIRECTIVE Health Care Decision (hx) 09/08/2019 AD JUAREZ DIRECTIVE Health Care Decision (hx) 09/08/2019 AD JUAREZ DIRECTIVE Health Care Decision (hx) 09/08/2019 AD JUAREZ DIRECTIVE Health Care Decision (hx) 09/08/2019 AD JUAREZ DIRECTIVE Health Care Decision (hx) 09/08/2019 AD JUAREZ DIRECTIVE Health Care Decision (hx) 09/08/2019 AD JUAREZ DIRECTIVE Health Care Decision (hx) 09/08/2019 AD JUAREZ DIRECTIVE Health Care Decision (hx) 09/08/2019 AD JUAREZ DIRECTIVE Health Care Decision (hx) 09/08/2019 AD JUAREZ DIRECTIVE Health Care Decision (hx) 09/08/2019 AD JUAREZ DIRECTIVE Health Care Decision (hx) 09/08/2019 AD JUAREZ DIRECTIVE Health Care Decision (hx) 09/08/2019 AD JUAREZ DIRECTIVE Health Care Decision (hx) 09/08/2019 AD JUAREZ DIRECTIVE Health Care Decision (hx) 09/08/2019 AD JUAREZ DIRECTIVE Health Care Decision (hx) 09/08/2019 AD JUAREZ DIRECTIVE Health Care Decision (hx) 09/08/2019 AD JUAREZ DIRECTIVE Health Care Decision (hx) 09/08/2019 AD JUAREZ DIRECTIVE Health Care Decision (hx) 09/08/2019 AD JUAREZ DIRECTIVE Health Care Decision (hx) 09/08/2019 AD JUAREZ DIRECTIVE Care Teams Regional Ehs Manager Relationship Specialty Start Date End Date Hayden Canchola MD [address] [place] [address] Dr Virgie [place] PCP - General Internal Medicine 10/25/12
--- OUTSIDE RECORDS SUMMARY | 2024-11-29 16:24 | XMS_ITS | Clinical Summary ---
Author Organization [facility] Address [address] [place] [address] Phone Care Team Providers Care Cotton Dispatcher Name Role Phone Hayden Canchola MD Primary Care Provider [phone] Allergies No known active allergies Medications aspirin (ST CONSTANZA) 81 MG EC tablet Take 81 mg by mouth 1 (one) time each day Active furosemide (LASIX) 20 MG tablet Take 20 mg by mouth Active gabapentin (NEURONTIN) 100 MG capsule Take 100 mg by mouth 2 (two) times a day if needed Active glipiZIDE (GLUCOTROL) 5 MG tablet Take 5 mg by mouth A ctive isosorbide mononitrate (IMDUR) 30 MG 24 hr tablet Take 30 mg by mouth 1 (one) time each day Active metoprolol tartrate (LOPRESSOR) 50 MG tablet Take 100 mg by mouth in the morning and 100 mg in the evening. Active nitroglycerin (NITROSTAT) 0.[address] 0.4 mg under the tongue Active sacubitril-vals kathie (Entresto) 24-26 MG per tablet Take 1 tablet by mouth 2 (two) times a day Active Trulicity 3 MG/0.5ML solution pen-injector INJECT SUBCUTANEOUSLY ONCE A WEEK 07/14/20 21 Active atorvastatin (LIPITOR) 40 MG tablet Take 40 mg by mouth 1 (one) time each day Active metFORMIN (GLUCOPHAGE) 500 MG tablet Take 1,000 mg by mouth in the morning and 1,000 mg in the evening. 03/09/20 22 Active Active Problems Problem Noted Date Diagnosed Date Primary adenocarcinoma of upper lobe of left fallon g 06/16/2019 Family History Medical History Relation Comments Kidney disease Brother Relation Status Comments Brother Social History Tobacco Use Types Packs/Day Years Used Date Smoking Tobacco: Former Smokeless Tobacco: Never Tobacco Cessation:Counseling Given: Not Answered Alcohol Use Standard Drinks/Week Comments Yes 0 (1 standard drink = 0.6 oz pur e alcohol) occasionally Comments Unknown Sex and Gender Information Value Date Recorded Sex Assigned at Not on file Legal Sex Female 2:18 PM EDT Gender Identity Not on file Sexual Orientation Not on file Last Filed Vital Signs Vital Sign Reading Time Taken Comments Blood Pressure 140/80 02/15/2023 1:00 PM EDT Pulse 76 08/17/2022 12:57 PM EDT Temperature - - Respiratory Rate - - Oxygen Saturation 97% 02/15/2023 1:00 PM EDT Inhaled Oxygen Concentration - - Weight 71.5 kg (157 lb 9.6 oz) 02/15/2023 1:00 P M EDT Height 157.5 cm (5' 2 ) 02/15/2023 1:00 PM EDT Body Mass Index 28.83 02/15/2023 1:00 PM EDT Plan of Treatment Health Maintenance Due Date Last Done Comments Pneumococcal Vaccine: 65+ Ye ars (1 of 2 - PCV) 1951 Diabetes: Hemoglobin A1C 09/05/2021 Diabetes: Ophthalmology Exam 09/05/2021 Diabetes: Pedal Pulse Checked 09/05/2021 Diabetes: Sensory Foot Exam 09/05/2021 Diabetes: Visual Foot Exam 09/05/2021 Influenza Vaccine (#1) 2024 Hepatitis B Vaccine Aged Out No longe r eligible based on patient's age to complete this topic Insurance [place] Care Teams Cotton Dispatcher Relationship Specialty Start Date End Date Hayden Canchola MD [id number] [place] PCP - General Internal Medicine 06/11/21
--- OUTSIDE RECORDS SUMMARY | 2024-11-29 16:24 | XMS_ITS | Clinical Summary ---
Author Organization [facility] Address [address] [place] [address] Care Team Providers Care Dough Cutter Name Role Phone Hayden Canchola MD Primary Care Provider [phone] Allergies No known active allergies Medications Medication Sig Dispensed Refills Start Date End Date Status nitroglycerin (NITROSTAT) 0.[address] 1 tablet (0.4 mg total) under the tongue every 5 (five) minutes as needed for chest pain. 0 Active isosorbide mononitrate (IMDUR) 30 MG 24 hr tablet Take 1 tablet (30 mg total) by mouth daily. 0 Active glipiZIDE (GLUCOTROL) tablet 5 mg Take 1 tablet (5 mg total) by mouth 2 (two) times a day before breakfast and dinner. 0 Active metoprolol tartrate (LOPRESSOR) 100 MG tablet Take 1 tablet (100 mg total) by mouth 2 (two) times a day. 0 Active gabapentin (NEURONTIN) 100 MG capsule Take 1 capsule (100 mg total) by mouth 3 (three) times a day. 0 Active aspirin EC 81 MG tablet Take 1 tablet (81 mg total) by mouth daily. 0 Active sacubitril-valsartan (ENTRESTO) 24-26 MG per tablet Take 1 tablet by mouth 2 (two) times a day. 0 Active furosemide (LASIX) 20 MG tablet Take 1 tablet (20 mg total) by mouth 2 (two) times a day. Every other day 0 Active dulaglutide (TRULICITY) 0.75 MG/0.5ML subcutaneous pen-injector Inject under the skin. 0 Active atorvastatin (LIPITOR) tablet 40 mg Take 1 tablet (40 mg total) by mouth daily. 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 Social History Tobacco Use Types Packs/Day Years Used Date Smoking Tobacco: Never Assessed Sex and Gender Information Value Date Recorded Sex Assigned at Not on file Gender Identity Not on file Sexual Orientation Not on file Job Start Date Occupation Industry Not on file Not on file Not on file Last Filed Vital Signs Vital Sign Reading Time Taken Comments Blood Pressure 136/61 07/20/2024 9:36 AM EDT Pulse 69 07/20/2024 9:36 AM EDT Temperature 36.2 ??C (97.2 ??F) 07/20/2024 9:36 AM ED T Respiratory Rate - - Oxygen Saturation 96% 07/20/2024 9:36 AM EDT Inhaled Oxygen Concentration - - Weight 69.4 kg (153 lb) 07/20/2024 9:36 AM EDT Height 154.9 cm (5' 1 ) 07/20/2024 9:36 AM EDT Body Mass Index 28.91 07/20/2024 9:36 AM EDT Plan of Treatment Health Maintenance Due Date Last Done Comments Hepatitis C Screening 1945 COVID-19 Vaccine (#1) 1950 Pneumococcal Vaccine (1 of 2 - PCV) 1951 Depression Screening 1957 BMI Counseling 1963 Preventative Health Evaluation 1963 DTap / Tdap / Td (1 - Tdap) 1964 Shingrix-Zoster Vaccine (1 of 2) 1964 Fall Risk Assessment 2010 Osteoporosis Screening (DEXA Scan) 2010 RSV Adult > 60+ Yrs or Pregn ant (1 - 1-dose 75+ series) 2020 Influenza Vaccine (#1) 2024 Hepatitis B Vaccines Aged Out No long er eligible based on patient's age to complete this topic RSV Ped < 20 months Aged Out No longe r eligible based on patient's age to complete this topic Care Teams Dough Cutter Relationship Specialty Start Date End Date Hayden Canchola MD [address] [place] [address] [address] [place] [address] PCP - General Fire Behavior Analyst 06/02/19
[2024-11-29 16:36] LABS: Alanine Aminotransferase < 6 U/L (0-31); Albumin Level 3.6 g/dL (3.5-5.0); Anion Gap 19 (12-20); Aspartate Amino Transferase 26 U/L (5-31); Bilirubin Direct 0.5 mg/dL (0.0-0.5); Bilirubin Total 1.1 mg/dL (0.0-1.0); Blood Urea Nitrogen 16 mg/dL (9-16); Carbon Dioxide 21 mmol/L (22-29); Chloride 108 mmol/L (96-108); Creatinine Clr Calc Pharmacy 32.1; Estimated Glomerular Filt Rate 42; Glucose Random 120 mg/dL (60-115); Lactic Acid 2.4 mmol/L (0.5-2.0); Lipase 42 U/L (8-78); Magnesium 1.7 mg/dL (1.6-2.6); Potassium 3.9 mmol/L (3.3-5.1); Sodium 144 mmol/L (135-145); Total Protein 7.5 g/dL (6.5-8.0)
[2024-11-29 16:37] LABS: B Type Natriuretic Peptide 455 pg/mL (<100)
[2024-11-29 16:41] LABS: Troponin-I High Sensitivity 24.3 ng/L (<3.5-17.0)
[2024-11-29 16:44] VITALS: BP 169/64; PULSE 104
[2024-11-29 16:45] VITALS: BP 135/94; BP 187/87; PULSE 52; PULSE 68
[2024-11-29] MEDS: Lactated Ringers 1,000 ML 999 ML IV (16:45)
[2024-11-29 16:51] LABS: Alkaline Phosphatase 97 U/L (39-117); Influenza A PCR NEGATIVE (Negative); Influenza B PCR NEGATIVE (Negative); Resp Syncy Virus RNA Qual PCR NEGATIVE (Negative); SARS COV2 PCR INHOUSE NEGATIVE (Negative)
[2024-11-29 18:08] LABS: Reflex Lactate? Lactic Acid Added
[2024-11-29 18:44] VITALS: BP 188/81; PULSE 95; RESP 20; TEMP 36.4; O2SAT 100
[2024-11-29 18:56] LABS: Troponin-I High Sensitivity 25.5 ng/L (<3.5-17.0)
[2024-11-29 18:57] LABS: ~Lactic Acid-LAB USE ONLY 3.6 mmol/L (0.5-2.0)
[2024-11-29] MEDS: dexAMETHasone sod phosphate 4 MG/ML VIAL 8 MG IVPUSH (18:58)
[2024-11-29 19:00] LABS: Appearance Urine Clear; Color Urine Yellow; Glucose Urine UA Negative (Negative); Leukocyte Esterase Urine Negative (Negative); Nitrite Urine Negative (Negative); Urine Blood Negative (Negative); Urine Ketones 15 mg/dL (Negative); Urine Protein Negative (Neg-Trace)
[2024-11-29 20:34] LABS: Reflex Lactate? 2 Y
[2024-11-29 21:05] VITALS: BP 177/89; PULSE 95; RESP 20; TEMP 36.4; O2SAT 100
== END 2024-11-29 21:18 | disposition short-term general hospital (02) ==
PROVIDERS: Emergency Provider Emergency Medicine; PCP Internal Medicine
DX: R27.0 Ataxia, unspecified (principal); E87.20 Acidosis, unspecified; G93.9 Disorder of brain, unspecified; R93.89 Abnormal findings on diagnostic imaging of other specified body structures; S19.9XXA Unspecified injury of neck, initial encounter; X58.XXXA Exposure to other specified factors, initial encounter; Y93.9 Activity, unspecified; Y92.9 Unspecified place or not applicable; Y99.9 Unspecified external cause status; R11.2 Nausea with vomiting, unspecified; E11.9 Type 2 diabetes mellitus without complications; I10 Essential (primary) hypertension; Z91.81 History of falling; Z85.118 Personal history of other malignant neoplasm of bronchus and lung; Z79.899 Other long term (current) drug therapy; Z03.818 Encounter for observation for suspected exposure to other biological agents ruled out
CPT/HCPCS: 0241U; 36415; 51701; 70450; 71045; 72125; 80048; 80076; 81003; 82550; 83605; 83690; 83735; 83880; 84484; 85025; 85610; 87040; 93005; 96365; 96366; 96375; 99285; J1100; J2405; J3475; J7120

== ENCOUNTER → 2024-11-29 15:20 | Outpatient (BNV) | payer MEDICARE, MEDICAID, SELFPAY | PROVIDERS: Emergency Provider Emergency Medicine; PCP Internal Medicine; Visit Provider Radiology Diagnostic Radiology | DX: M48.02 Spinal stenosis, cervical region (principal); D33.2 Benign neoplasm of brain, unspecified; R94.2 Abnormal results of pulmonary function studies; J98.11 Atelectasis | CPT/HCPCS: 71045 ==

== ENCOUNTER → 2024-11-29 15:20 | Outpatient (BNV) | payer MEDICARE, MEDICAID, SELFPAY | PROVIDERS: Emergency Provider Emergency Medicine; PCP Internal Medicine; Visit Provider Internal Medicine Cardiovascular Disease | DX: I49.1 Atrial premature depolarization (principal) | CPT/HCPCS: 93010 ==

== ENCOUNTER 2025-01-01 10:02 | Outpatient (AMB) | payer MEDICARE, MEDICAID, SELFPAY ==
[2025-01-01 10:09] VITALS: BP 118/66; PULSE 107; O2SAT 98; BMI 27.0
--- NOTE | 2025-01-01 10:09 | HO.NEPHOV ---
Vital Signs 01/01/25 10:09 Height 5 ft 1 in Weight 143 lb BMI 27.0 BP 118/66 Blood Pressure Location Rt brachial Position Sitting Pulse 107 H Pulse Source Pulse Oximeter Pulse Oximetry (%) 98 Oxygen Delivery Method Room Air Intake Visit Reasons: CKD/LVM Salesforce Developer Required: No Accompanied by: Brother Allergies No Known Allergies [No Known Allergies*] Allergy (Verified 01/01/25 10:13) Medication List - Last Reviewed 01/01/25 by SARAH BETH Sharif aspirin (Adult Low Dose Aspirin) 81 mg PO DAILY atorvastatin 40 mg PO DAILY 90 days famotidine 10 mg PO DAILY furosemide 20 mg PO .Twice a week gabapentin 400 mg PO DAILY glipizide 10 mg PO BID isosorbide mononitrate ER 30 mg PO DAILY metformin 1,000 mg PO BID metoprolol tartrate 12.5 mg PO BID nitroglycerin 0.3 mg sublingual Q5M PRN spironolactone 12.5 mg PO DAILY HPI Comments Details: Anjana is a pleasant elderly woman with a history of stage IIIB chronic kidney disease. Baseline creatinine is around 1.4-1.6 mg/dL. She has a history of diabetes mellitus 2009 and along with hypertension. Both have been under good control. Anjana has a history of stage III A T2 N2 lung adenocarcinoma diagnosed in March 2019. She has undergone left lingular segmentectomy and shivani dissection on 04/20/2019. She was started on adjuvant carboplatin/Alimta chemotherapy on 06/20/2019 and completed 4 cycles. She had mediastinal radiation in 2019 and completed in November of 2019. In July 2020 serum creatinine was 1.81 and as of February 2021 creatinine was 2.1 mg/dL. She also has a history of COPD which is under control. History of coronary disease and CHF. She is currently on Entresto. 01/01/25 Recently underwent brain surgery- Nov 2024 Feeling better No dizziness Waiting for radiation therapy [facility] Medical History (Updated 11/30/24 @ 00:00 by Background Daemon) Heart failure with reduced ejection fraction History of ST elevation myocardial infarction (STEMI) (~03/2013) On home O2 Personal history of nicotine dependence Malignant neoplasm of upper lobe of left lung (~2018) Tubular adenoma of colon COPD (chronic obstructive pulmonary disease) Exercise hypoxemia Emphysema lung DM2 (diabetes mellitus, type 2) HLD (hyperlipidemia) HTN (hypertension) PVD (peripheral vascular disease) CAD (coronary artery disease) Surgical History (Updated 01/01/25 @ 10:12 by SARAH BETH Sharif) H/O brain surgery (~11/2024) History of cardiac cath (~03/2013) History of lung surgery (~03/2019) History of bronchoscopy (~03/2019) History of colonoscopy (~12/2019) Social History Patient Tobacco Use Status: Former Tobacco user Physical Exam Vital Signs: Last Vital Signs Pulse 107 H 01/01/25 10:09 BP 118/66 01/01/25 10:09 Pulse Ox 98 01/01/25 10:09 Oxygen Delivery Method Room Air 01/01/25 10:09 BMI result Body Mass Index 27.0 Neck Neck: Yes supple Resp Auscultation: clear to auscultation bilaterally Cardio Palpation: no palpable S3 Heart sounds: no rubs GI Palpation (GI): Soft to palpation Auscultation: normal bowel sounds Neuro Motor exam (neuro): no asterixis Results Reviewed Nephrology Results: Hgb 14.2 g/dl (12.0-16.0) 11/29/24 WBC 6.1 X10*3/uL (4.8-10.8) 11/29/24 Plt Count 201 X10*3/uL (160-400) 11/29/24 Sodium 144 mmol/L (135-145) 11/29/24 Potassium 3.9 mmol/L (3.3-5.1) 11/29/24 Chloride 108 mmol/L (96-108) 11/29/24 Carbon Dioxide 21 mmol/L (22-29) L 11/29/24 BUN 16 mg/dL (9-16) 11/29/24 Creatinine 1.24 mg/dL (0.5-1.4) 11/29/24 Calcium 10.0 mg/dL (8.4-10.2) 11/29/24 Urine Protein Negative mg/dL (Neg-Trace) 11/29/24 Urine Creatinine 110.73 mg/dL 08/02/24 Assessment & Plan Assessment & Plan (1) CKD (chronic kidney disease) stage 3, GFR 30-59 ml/min: Code(s): N18.30 - Chronic kidney disease, stage 3 unspecified Category: Medical Plan: . Elderly woman with chronic kidney disease stage IIIB in the setting of longstanding hypertension diabetes mellitus and lung cancer status post the chemotherapy with carboplatin. She does not have significant proteinuria. 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 There could be some age-related nephron loss as well. However she has received carboplatin in the last which could have led to tubular damage. renal function has improved creatinine is down to 1.24 from 1.6 to 1.7 Goal is to slow the progression of renal disease. Continue to avoid nephrotoxic agents. . (2) Heart failure with reduced ejection fraction: Code(s): I50.20 - Unspecified systolic (congestive) heart failure Category: Medical Plan: . Well compensated. Currently on Entresto. Encouraged to follow-up with Dr. Macias Stay on low-sodium diet. Continue with current dose of Lasix . (3) Renal cyst: Comment: . As of 2020, Prominent pyramids right kidney with an anechoic cyst. No echogenic stone or hydronephrosis. Bosniak type II complex cyst midpole left kidney. No echogenic stones or caliectasis. Code(s): N28.1 - Cyst of kidney, acquired Category: Medical Plan: . Cyst has been stable. She underwent repeat ultrasonogram in [facility] few months ago. . . Orders: Orders Basic Metabolic Panel 4 Months N18.30 - Chronic kidney disease, stage 3 unspecified Medications: New spironolactone 12.5 mg PO DAILY metoprolol tartrate 12.5 mg PO BID famotidine 10 mg PO DAILY Coding Level of Care Code Est Pt Level 4 (59231) Diagnoses CKD (chronic kidney disease) stage 3, GFR 30-59 ml/min N18.30 Heart failure with reduced ejection fraction I50.20 Renal cyst N28.1
--- OUTSIDE RECORDS SUMMARY | 2025-01-01 11:10 | XMS_ITS | Encounter Summary ---
Author Organization [facility] Address [address] [place] [address] Care Team Providers Care Grants Analyst Name Role Phone Hayden Canchola MD Primary Care Provider [phone] Encounter Details Date Type Department Care Team (Late st Contact Info) Description 12/08/[address] [facility] - Main Lab [address] [place] [phone] Christopher Rutledge MD [address] [place] [address] Encounter for other general examination Social History Tobacco Use Types Packs/Day Years Used Date Smoking Tobacco: Never Assessed Comments Unknown Sex and Gender Information Value Date Recorded Sex Assigned at Not on file Legal Sex Female 11:47 PM EST Gender Identity Not on file Sexual Orientation Not on file documented as of this encounter Plan of Treatment Upcoming Encounters Date Type Department Care Team (Late st Contact Info) Description 01/12/2025 9:30 AM EDT Office Visit [facility] Hematology Oncology [address] [place] [phone] Coleman Faye MD [address] [place] [phone] documented as of this encounter Procedures Procedure Name Priority Date/Time Associated Diagnosis Comments CBC WITH AUTO DIFFERENTIAL Routine 12/08/2024 7:14 AM EST Encounter for other general examination CBC AND DIFFERENTIAL Routine 12/08/2024 7:14 AM EST Encounter for other general examination MAGNESIUM Routine 12/08/2024 7:14 AM EST Encounter for other general examination COMPREHENSIVE METABOLIC PANEL Routine 12/08/2024 7:14 AM EST Encounter for other general examination documented in this encounter Results * (ABNORMAL) CBC auto differential (12/08/2024 7:14 AM EST) [facility] WBC 8.4 4.8 - 10.8 K/mcL LAB HEMETOLOGY METHOD 12/08/2024 10:23 AM [facility] RBC 3.60(L) 3.80 - 4.80 M/mcL LAB HEMETOLOGY METHOD 12/08/2024 10:23 AM [facility] Hemoglobin 10.8(L) 11.5 - 16.0 g/dL LAB HEMETOLOGY METHOD 12/08/2024 10:23 AM [facility] Hematocrit 34.0(L) 35.0 - 47.0 % LAB HEMETOLOGY METHOD 12/08/2024 10:23 AM [facility] MCV 95.2 79.0 - 98.0 FL LAB HEMETOLOGY METHOD 12/08/2024 10:23 AM [facility] MCH 30.3 27.0 - 32.0 pcg LAB HEMETOLOGY METHOD 12/08/2024 10:23 AM [facility] MCHC 31.8(L) 32.0 - 37.0 g/dL LAB HEMETOLOGY METHOD 12/08/2024 10:23 AM [facility] RDW 14.6 11.0 - 15.0 % LAB HEMETOLOGY METHOD 12/08/2024 10:23 AM [facility] Platelets 182 130 - 400 K/mcL LAB HEMETOLOGY METHOD 12/08/2024 10:23 AM [facility] MPV 10.9 7.0 - 11.0 FL LAB HEMETOLOGY METHOD 12/08/2024 10:23 AM [facility] NRBC 0.0 <1.0 % LAB HEMETOLOGY METHOD 12/08/2024 10:23 AM [facility] NRBC Absolute 0.00 <0.10 K/mcL LAB HEMETOLOGY METHOD 12/08/2024 10:23 AM [facility] Neutrophils Relative 83.0 % LAB HEMETOLOGY METHOD 12/08/2024 10:23 AM [facility] Lymphocytes Relative 7.1 % LAB HEMETOLOGY METHOD 12/08/2024 10:23 AM [facility] Monocytes Relative 7.5 % LAB HEMETOLOGY METHOD 12/08/2024 10:23 AM [facility] Eosinophils Relative 0.0 % LAB HEMETOLOGY METHOD 12/08/2024 10:23 AM [facility] Basophils Relative 0.4 % LAB HEMETOLOGY METHOD 12/08/2024 10:23 AM [facility] Immature Granulocytes Relative 2.0 % LAB HEMETOLOGY METHOD 12/08/2024 10:23 AM [facility] Neutrophils Absolute 6.98 1.50 - 7.00 K/mcL LAB HEMETOLOGY METHOD 12/08/2024 10:23 AM [facility] Lymphocytes Absolute 0.60(L) 1.00 - 5.00 K/mcL LAB HEMETOLOGY METHOD 12/08/2024 10:23 AM [facility] Monocytes Absolute 0.63 0.20 - 1.00 K/mcL LAB HEMETOLOGY METHOD 12/08/2024 10:23 AM [facility] Eosinophils Absolute 0.00 0.00 - 0.50 K/mcL LAB HEMETOLOGY METHOD 12/08/2024 10:23 AM [facility] Basophils Absolute 0.03 0.00 - 0.20 K/mcL LAB HEMETOLOGY METHOD 12/08/2024 10:23 AM EST [facility] Immature Granulocytes Absolute 0.17(H) 0.00 - 0.03 K/mcL LAB HEMETOLOGY METHOD 12/08/2024 10:23 AM EST [facility] Blood Venous blood specimen / Unknown Venipuncture / Unknown 12/08/2024 7:14 AM EST 12/08/2024 9:29 AM EST Christopher Rutledge MD LAB BLOOD ORDERABLES Final Res ult Performing Organization Address City/[facility]/ZIP Co de Phone Number [facility] [address] [place] [address], [place] [phone] * Magnesium (12/08/2024 7:14 AM EST) Magnesium 2.3 1.9 - 2.6 mg/dL LAB CHEMISTRY METHOD 12/08/2024 10:46 AM EST [facility] Blood Venous blood specimen / Unknown Venipuncture / Unknown 12/08/2024 7:14 AM EST 12/08/2024 9:29 AM EST Christopher Rutledge MD LAB BLOOD ORDERABLES Final Res ult Performing Organization Address City/[facility]/ZIP Co de Phone Number [facility] [address] [place] [address], [place] [phone] * (ABNORMAL) Comprehensive metabolic panel (12/08/2024 7:14 AM EST) Sodium 139 133 - 145 mmol/L LAB CHEMISTRY METHOD 12/08/2024 10:48 AM [facility] Potassium 4.0 3.5 - 5.5 mmol/L LAB CHEMISTRY METHOD 12/08/2024 10:48 AM [facility] Chloride 108 96 - 110 mmol/L LAB CHEMISTRY METHOD 12/08/2024 10:48 AM EST [facility] CO2 24 21 - 32 mmol/L LAB CHEMISTRY METHOD 12/08/2024 10:48 AM [facility] Anion Gap 7 3 - 11 LAB CHEMISTRY METHOD 12/08/2024 10:48 AM [facility] Glucose 153(H) 70 - 100 mg/dL LAB CHEMISTRY METHOD 12/08/2024 10:48 AM [facility] BUN 39(H) 5 - 25 mg/dL LAB CHEMISTRY METHOD 12/08/2024 10:48 AM [facility] Creatinine 1.25(H) 0.50 - 1.10 mg/dL LAB CHEMISTRY METHOD 12/08/2024 10:48 AM [facility] eGFR 44(L) >=60 mL/min/1. 73m2 LAB CHEMISTRY METHOD 12/08/2024 10:48 AM [facility] Comment:Calculation based on the??Chronic Kidney Disease Epidemiology Collaboration (CKD-EPI) equation refit??without adjustment for race. BUN/Creatinine Ratio 31.2 LAB CHEMISTRY METHOD 12/08/2024 10:48 AM [facility] Calcium 7.8(L) 8.5 - 10.5 mg/dL LAB CHEMISTRY METHOD 12/08/2024 10:48 AM [facility] AST (SGOT) 17 10 - 42 unit/L LAB CHEMISTRY METHOD 12/08/2024 10:48 AM [facility] ALT (SGPT) 22 10 - 60 unit/L LAB CHEMISTRY METHOD 12/08/2024 10:48 AM [facility] Alkaline Phosphatase 89 42 - 121 unit/L LAB CHEMISTRY METHOD 12/08/2024 10:48 AM [facility] Total Protein 5.0(L) 6.0 - 8.0 g/dL LAB CHEMISTRY METHOD 12/08/2024 10:48 AM [facility] Albumin 2.1(L) 3.2 - 5.0 g/dL LAB CHEMISTRY METHOD 12/08/2024 10:48 AM EST [facility] Total Bilirubin 0.3 0.0 - 1.4 mg/dL LAB CHEMISTRY METHOD 12/08/2024 10:48 AM EST [facility] Blood Venous blood specimen / Unknown Venipuncture / Unknown 12/08/2024 7:14 AM EST 12/08/2024 9:29 AM EST us Christopher Rutledge MD LAB BLOOD ORDERABLES Final Res ult [facility] [address] [place] [address], documented in this encounter Visit Diagnoses Diagnosis Encounter for other general examination documented in this encounter Care Teams Grants Analyst Relationship Specialty Start Date End Date Hayden Canchola MD [address] [place] PCP - General Internal Medicine 10/25/12 documented as of this encounter
--- OUTSIDE RECORDS SUMMARY | 2025-01-01 11:10 | XMS_ITS | Clinical Summary ---
Author Organization [facility] Address [address] [place] [address] Phone Care Team Providers Care Senior Java Web Application Developer Name Role Phone Hayden Canchola MD Primary Care Provider [phone] Allergies No known active allergies Medications aspirin [...] [place] Care Teams Senior Java Web Application Developer Relationship Specialty Start Date End Date Hayden Canchola MD [address] [place] PCP - General Internal Medicine 06/11/21
--- OUTSIDE RECORDS SUMMARY | 2025-01-01 11:10 | XMS_ITS | Encounter Summary ---
Author Organization [facility] Address [address] [place] [address] Care Team Providers Care Senior Contracts Administrator Name Role Phone Hayden Canchola MD Primary Care Provider [phone] Encounter Details Date Type Department Care Team (Late st Contact Info) Description 12/17/2024 Lab Requisition [facility] - Main Lab [address] [place] [phone] Christopher Rutledge MD [address] [place] [address] Encounter for other general examination Social History [...] [facility] H[facility] [address] [place] [phone] Coleman Faye MD [address] [place] [phone] documented as of this encounter Procedures Procedure Name Priority Date/Time Associated Diagnosis Comments COMPLETE BLOOD COUNT Routine 12/17/2024 5:42 AM EST Encounter for other general examination BASIC METABOLIC PANEL Routine 12/17/2024 5:42 AM EST Encounter for other general examination documented in this encounter Results * (ABNORMAL) Complete blood count (12/17/2024 5:42 AM EST) [facility] WBC 9.7 4.8 - 10.8 K/mcL LAB HEMETOLOGY METHOD 12/17/2024 10:22 AM [facility] RBC 3.20(L) 3.80 - 4.80 M/mcL LAB HEMETOLOGY METHOD 12/17/2024 10:22 AM [facility] Hemoglobin 10.1(L) 11.5 - 16.0 g/dL LAB HEMETOLOGY METHOD 12/17/2024 10:22 AM [facility] Hematocrit 32.8(L) 35.0 - 47.0 % LAB HEMETOLOGY METHOD 12/17/2024 10:22 AM [facility] MCV 102.8(H) 79.0 - 98.0 FL LAB HEMETOLOGY METHOD 12/17/2024 10:22 AM [facility] MCH 31.7 27.0 - 32.0 pcg LAB HEMETOLOGY METHOD 12/17/2024 10:22 AM [facility] MCHC 30.8(L) 32.0 - 37.0 g/dL LAB HEMETOLOGY METHOD 12/17/2024 10:22 AM [facility] RDW 16.4(H) 11.0 - 15.0 % LAB HEMETOLOGY METHOD 12/17/2024 10:22 AM [facility] Platelets 177 130 - 400 K/mcL LAB HEMETOLOGY METHOD 12/17/2024 10:22 AM [facility] MPV 10.4 7.0 - 11.0 FL LAB HEMETOLOGY METHOD 12/17/2024 10:22 AM [facility] NRBC 0.0 <1.0 % LAB HEMETOLOGY METHOD 12/17/2024 10:22 AM [facility] NRBC Absolute 0.00 <0.10 K/mcL LAB HEMETOLOGY METHOD 12/17/2024 10:22 AM EST [facility] Blood Venous blood specimen / Unknown Venipuncture / Unknown 12/17/2024 5:42 AM EST 12/17/2024 9:08 AM EST us Christopher Rutledge MD LAB BLOOD ORDERABLES Final Res ult [facility] [address] [place] [address], [place] [phone] * (ABNORMAL) Basic metabolic panel (12/17/2024 5:42 AM EST) Sodium 139 133 - 145 mmol/L LAB CHEMISTRY METHOD 12/17/2024 10:17 AM [facility] Potassium 5.2 3.5 - 5.5 mmol/L LAB CHEMISTRY METHOD 12/17/2024 10:17 AM [facility] Chloride 110 96 - 110 mmol/L LAB CHEMISTRY METHOD 12/17/2024 10:17 AM [facility] CO2 26 21 - 32 mmol/L LAB CHEMISTRY METHOD 12/17/2024 10:17 AM [facility] Anion Gap 3 3 - 11 LAB CHEMISTRY METHOD 12/17/2024 10:17 AM [facility] Glucose 104(H) 70 - 100 mg/dL LAB CHEMISTRY METHOD 12/17/2024 10:17 AM [facility] BUN 38(H) 5 - 25 mg/dL LAB CHEMISTRY METHOD 12/17/2024 10:17 AM [facility] Creatinine 1.37(H) 0.50 - 1.10 mg/dL LAB CHEMISTRY METHOD 12/17/2024 10:17 AM [facility] eGFR 39(L) >=60 mL/min/1. 73m2 LAB CHEMISTRY METHOD 12/17/2024 10:17 AM EST [facility] Comment:Calculation based on the??Chronic Kidney Disease Epidemiology Collaboration (CKD-EPI) equation refit??without adjustment for race. BUN/Creatinine Ratio 27.7 LAB CHEMISTRY METHOD 12/17/2024 10:17 AM [facility] Calcium 7.8(L) 8.5 - 10.5 mg/dL LAB CHEMISTRY METHOD 12/17/2024 10:17 AM [facility] Blood Venous blood specimen / Unknown Venipuncture / Unknown 12/17/2024 5:42 AM EST 12/17/2024 9:08 AM EST us Christopher Rutledge MD LAB BLOOD ORDERABLES Final Res ult [facility] [address] [place] [address], documented in this encounter Visit Diagnoses Diagnosis Encounter for other general examination documented in this encounter Care Teams Senior Contracts Administrator Relationship Specialty Start Date End Date Hayden Canchola MD [address] [place] PCP - General Internal Medicine 10/25/12 documented as of this encounter
--- OUTSIDE RECORDS SUMMARY | 2025-01-01 11:10 | XMS_ITS | Encounter Summary ---
Author Organization [facility] Address [address] [place] [address] Care Team Providers Care Game Tester Name Role Phone Hayden Canchola MD Primary Care Provider [phone] Encounter Details Date Type Department Care Team (Late st Contact Info) Description 12/04/2024 Telephone [facility] Hematology Oncology [address] [place] [id number] Coleman Faye MD [address] [place] [address] Social History Tobacco Use Types Packs/Day Years Used Date Smoking Tobacco: Never Assessed Comments Unknown Sex and Gender Information Value Date Recorded Sex Assigned at Not on file Legal Sex Female 11:47 PM EST Gender Identity Not on file Sexual Orientation Not on file documented as of this encounter Progress Notes * Suzie Vasquez RN - 12/05/2024 4:24 PM EST There is only one number on file for Anjana. It is the same number as her emergency contact [phone]. Number has calling restrictions. Acosta cannot be completed. Unable to get through to Anjana or her emergency contact. No way to leave a VM - call disconnects. No FOV booked. * Coleman Faye MD - 12/05/2024 4:12 PM EST Schedule follow-up here in 2 weeks * Suzie Vasquez RN - 12/04/2024 3:38 PM EST Patient was seen at [facility] ER on 11/29/24 for c/o nausea/vomiting and falls X 1 week. [facility] transferred Anjana to [facility]. Surgery 12/03/24: S/P resection of new brain mass with Dr. Lagos. Dr. Faye - please review and advise. * Palmira Simmons - 12/04/2024 2:37 PM EST MY Lemon from [facility] calls to inform pt has been hospitalized since 11/30/24. She was admitted for weakness, nausea, vomiting, dizziness & fall. States pt has brain metastases and had a craniotomy tumor resection. Pathology is pending at this time. A PET scan is likely needed but Elizabeth is unsure if they are anle to do it there, will be ordering a CT abd/pel in the meantime. Also states Rad Onc is consulted but pt is able to see specialist that is closer to her. Asks if there is anything else pt should have while she is there that MD recommends? Email is best for Elizabeth as she will not be in the hospital for the rest of the week. Provided email for herself as well as relations coordinator staff. Email - & [email or web address] documented in this encounter Plan of Treatment Upcoming Encounters Date Type Department Care Team (Late st Contact Info) Description 01/12/2025 9:30 AM EDT Office Visit [facility] Hematology Oncology [address] [place] [address] Coleman Faye MD [address] [place] [address] documented as of this encounter Visit Diagnoses Not on filedocumented in this encounter Care Teams Game Tester Relationship Specialty Start Date End Date Hayden Canchola MD [address] [place] [address] Dr Virgie [place] PCP - General Internal Medicine 10/25/12 documented as of this encounter
--- OUTSIDE RECORDS SUMMARY | 2025-01-01 11:10 | XMS_ITS | Continuity of Care Document ---
Author Organization [facility] ter Address [address] [place] [id number]- Care Team Providers Care Gear Grinder Name Role Phone Hayden Canchola MD Primary Care Physician [phone] Encounter 12/21/24 - 12/22/[address] [address]- Attending Physician: Not on Staff, Attending MD Referring Physician: Not on Staff, Referring MD Encounter Type: [facility]RI Allergies, Adverse Reactions, Alerts No Known Allergies Medications amlodipine 5 mg oral tablet 1 tablet = 5 mg, By Mouth, Daily, 0 Refills, Maintenance, 06/20/14 11:37:31 AM EDT Start Date: 06/20/14 Status: Ordered Repeat number: 1 aspirin 81 mg oral tablet 1 tablet = 81 mg, By Mouth, Daily, # 30 tablet, 1 Refills, Maintenance, 04/14/13 8:18:31 AM EDT, Tablet Start Date: 04/14/13 Stop Date: 06/13/13 Status: Ordered Quantity: 30.0 Unit: tablet Repeat number: 2 clopidogrel 75 mg oral tablet 1 tablet = 75 mg, By Mouth, Daily in AM, # 30 tablet, 1 Refills, Maintenance, 04/14/13 8:18:44 AM EDT, Tablet Start Date: 04/14/13 Stop Date: 06/13/13 Status: Ordered Quantity: 30.0 Unit: tablet Repeat number: 2 glipizide 5 mg oral tablet 1 tablet = 5 mg, By Mouth, Daily, 0 Refills, Maintenance, 06/20/14 11:36:50 AM EDT Start Date: 06/20/14 Status: Ordered Repeat number: 1 Isosrbide MONOnitrate ER = 30 mg, By Mouth, Daily in AM, 0 Refills, Maintenance, 06/20/14 11:37:42 AM EDT Start Date: 06/20/14 Status: Ordered Repeat number: 1 Lab Slip Lab Slip, See Instructions, # 1 each, Refills 0, Tot. Refills 0, Maintenance, Diagnosis: MyocardialInfarction, Heart Failure, Elevated Creatinine Lab test: CBC, Lytes, renal function, Creatinine Please fax results to Dr. Canchola's office at [phone], 04/14/13 9:09:31 AM EDT Start Date: 04/14/13 Status: Ordered Quantity: 1.0 Unit: each Repeat number: 1 metoprolol 50 mg oral tablet 1 tablet = 50 mg, By Mouth, 2 times a day, 0 Refills, Maintenance, 08/15/14 1:57:48 PM EDT Start Date: 08/15/14 Status: Ordered Repeat number: 1 nitroglycerin 0.4 mg sublingual tablet 1 tablet = 0.4 mg, Sublingual, Every 5 minutes, PRN Chest Pain, If chest pain not relieved within 5minutes of taking the 1st dose, seek immediate medical attention (not to exceed 3 doses/15 min--if pain persists, seek medical attention), # 600 tablet, 1 Refills, Maintenance, 04/14/13 8:19:07 AM EDT, Tablet Start Date: 04/14/13 Stop Date: 06/13/13 Status: Ordered Quantity: 600.0 Unit: tablet Repeat number: 2 simvastatin 80 mg oral tablet 1 tablet = 80 mg, By Mouth, Daily at bedtime, 0 Refills, Maintenance, 06/20/14 11:36:18 AM EDT Start Date: 06/20/14 Status: Ordered Repeat number: 1 Results Radiology Reports * Exam Date Time Procedure Performing Provider Status 12/21/24 11:48 AM MRI Brain W+W/O Contrast Auth (Verified) Notes: (MRI Brain W+W/O Contrast) Reason For Exam: SRS Planning. Secondary Malignant Neoplasm of Brain.;SRS Planning. Secondary Malignant Neoplasm of Brain. RESULT: MRI Brain W+W/O Contrast [facility] VISIT NUMBER :[id number] Patient Name: Gisele Wallace Date of : 1945 Date of Exam: 12-21-2024 Referring Physician: Thad Juarez [facility] [address] [facility]/[place] [address] Exam: MR Brain (C-/C+) CPT 43361 Room Description: Pasquale Morrison 1.5 MR Brain (C-/C+) CPT 47446 INDICATION / CLINICAL QUESTION: SRS Planning. Secondary Malignant Neoplasm of Brain. TECHNIQUE: Multiplanar, multisequence MRI of the brain was performed with and without intravenous contrast. 13 mL Dotarem intravenous contrast was administered. COMPARISON: Prior outside imaging has been requested but is not yet available at the time of interpretation. FINDINGS: Transabdominal images are degraded by motion artifact, which may obscure fine detail. BRAIN and EXTRA-AXIAL SPACES: There has been prior right suboccipital craniotomy, with underlying hemosiderin stained resection cavity in the right cerebellar hemisphere. Intrinsically T2 hyperintense signal is present within the resection cavity, compatible with fluid mixed with evolving blood products. There is a thin rim of enhancement at the margins of the resection cavity without discrete nodularity. There is a small amount of surrounding edema in the right cerebellum. There is a deviation of the fourth ventricle towards the left but no ventricular obstruction There is prominence of extra-axial fluid overlying the right cerebral hemisphere deep to the craniotomy site, with FLAIR intermediate component in the lateral right posterior fossa postoperative hematoma measuring 12 mm in thickness (9:19), as well as simple appearing fluid posteriorly, also likely postoperative in nature. In the supratentorial brain, there is a small area of diffusion restriction in the left centrum semiovale/subcortical white matter, suggestive of acute infarction. There is no associated mass effect or hemorrhage. There are also punctate foci of intermediate diffusivity in the contralateral right centrum semiovale/superior frontal subcortical white matter (5:57), with isointense signal on ADC, suggestive of subacute infarct. There is punctate enhancement associated with one of these foci. In addition, there are several additional punctate foci of enhancement scattered in the cerebral cortex with no definite diffusion restriction. These include a focus more posteriorly along the cortex of the right anterior postcentral gyrus (12:48); subtle foci in the left parietal lobe (12:50, 59); small foci in the left occipital lobe (12:123); and a focus in medial right temporal occipital junction (12:124) and more posteriorly in the right occipital lobe (12:130). There is no associated mass effect or hemorrhage associated with any of these foci. No other areas of abnormal enhancement are seen. There is no midline shift or effacement of the basal cisterns. No acute or space-occupying hematoma Mild scattered foci of T2 prolongation are seen in the periventricular, deep, and subcortical white matter. The midline structures are unremarkable. Ventricles, cisterns, and sulci are mildly prominent, consistent with volume loss, without hydrocephalus. Major intracranial flow voids are present. EXTRACRANIAL SOFT TISSUES: There have been lens replacements bilaterally. There is mild scattered mucosal thickening in the paranasal sinuses, without fluid levels. Small amount of fluid is seen in the soft tissues superficial to the right suboccipital craniotomy, tracking into the upper neck, measuring approximately 2.2 cm in superior inferior extent and 3 x 1.7 cm in axial cross-section. BONES: Marrow signal is preserved. IMPRESSION: 1. Small foci of reduced diffusivity in bilateral cerebral hemispheres, with punctate acute infarct in the superior left frontal white matter, and intermediate diffusivity suggestive of subacute infarcts in the right superior frontoparietal junction. No associated mass effect or hemorrhage. 2. Several punctate foci of enhancement in the cortex, one of which corresponds to an area of intermediate diffusivity, though others do not demonstrate definite diffusion abnormality. These could reflect additional late subacute infarcts, though trace metastatic disease cannot be entirely excluded. Recommend short interval follow-up to assess for expected evolution. 3. Expected postsurgical changes from right cerebellar resection. There is thin enhancement at the margins of the resection cavity, favoring granulation tissue, though continued follow-up is recommended to exclude residual tumor. 4. Small fluid collection superficial to the right suboccipital craniotomy site may reflect postoperative seroma versus pseudomeningocele. A Significant actionable finding will be communicated to the ordering or responsible provider by the medical records department. Receipt of this communication by the responsible or ordering provider will be documented in [employer] [facility] [employer] Findings, message ID [id number]. Electronically Signed By: Nguyen Hodges MD Dictated By: Not on Staff , NIDHI BULLOCK Dictated Date/Time: 12/21/24 1:10 pm Reviewed By: Not on Staff , NIDHI BULLOCK Signed By: Not on Staff , NIDHI BULLOCK Signed Date/Time: 12/21/24 1:10 pm Transcribed By: KIM Transcribed Date/Time: 12/21/24 1:10 pm Social History Social History Type Response Smoking Status Former smoker; Tobac co user in household: No; Other: pt states she quit smoking over 1 year ago; entered on: 08/15/14 Sex Sex Representation Female (finding) Patient Care team information Care Team Personnel Name: Hayden Canchola MD Position: [facility] Outreach Member Role: PCP Address: [address] [place] [address] Hayden Domínguez, [place] [address] Telecom: Care Team Related Persons Name: JAMIE WALLACE Insurance Providers Guarantor name: EUGENE Health Plan Information #: 1 Payer: MEDICARE PART B OUTPT Member Number: NA Policy Number: NA Group Number: NA Health Plan Information #: 2 Payer: [place] Member Number: NA Policy Number: NA Group Number: NA
--- OUTSIDE RECORDS SUMMARY | 2025-01-01 11:11 | XMS_ITS | Clinical Summary ---
Author Organization [facility] Address [address] [place] [address] Phone Care Team Providers Care Community Associate Name Role Phone Hayden Canchola MD Primary Care Provider [phone] Allergies No known active allergies Medications aspirin 81 mg EC tablet Take 1 [...] minutes as needed for chest pain. Active sacubitriL-valsa rtan (ENTRESTO) 24-26 mg per tablet Take 1 tablet by mouth 2 (two) times a day. 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 Hematology Oncology [address] [place] [address] Coleman Faye MD from Last 3 Months Social History Tobacco Use Types Packs/Day Years [...] 01/12/2025 9:30 AM EDT Office Visit [facility] Hematology Oncology [address] [place] [address] Coleman Faye MD [address] [place] [address] Health Maintenance Due Date Last Done Comments COVID-19 Vaccine (#1) 1950 Cholesterol Screening (Lipid Panel) 10/02/2022 Depression Screening 10/02/2022 Falls Risk Assessment 10/02/2022 Hepatitis C Screening 10/02/2022 Lung Cancer Screening (Low Dose CT) 10/02/2022 Osteoporosis Screening (Bone Density Screening) 10/02/2022 Social Influencers of Health Screening 10/02/2022 Medicare Annual Wellness Visit 08/12/2023 08/12/2022 DTaP,Tdap,and Td Vaccines (2 - Td or Tdap) 01/21/2028 01/20/2018 Zoster Vaccines Completed 03/25/2018, 12/24, 06/25/2016 Pneumococcal Vaccine: 50+ Years Completed 08/12/2022, 01/28/2018, 12/01/2016 RSV Immunization Patients 60+ Years Old Completed 07/01/2023 Influenza Vaccine Completed 08/15/2024, , 08/05/2022, Additional history exists HIB Vaccines Aged Out [...] patient's age to complete this topic Meningococcal B Vacine Aged Out No lo nger eligible based on patient's age to complete this topic RSV Immunization Patients Under 20 months Aged Out No longer eligible based on patient's age to complete this topic Varicella Vaccines Aged Out No longer eligible based on patient's age to complete this topic Procedures Procedure Name Priority Date/Time Associated Diagnosis Comments COMPLETE BLOOD COUNT Routine 12/17/2024 5:42 AM EST Encounter for other general examination BASIC METABOLIC PANEL Routine 12/17/2024 5:42 AM EST Encounter for other general examination CBC WITH AUTO DIFFERENTIAL Routine 12/08/2024 7:14 AM EST Encounter for other general examination MAGNESIUM Routine 12/08/2024 7:14 AM EST Encounter for other general examination CBC AND DIFFERENTIAL Routine 12/08/2024 7:14 AM EST Encounter for other general examination COMPREHENSIVE METABOLIC PANEL Routine 12/08/2024 7:14 AM EST Encounter for other general examination from Last 3 Months Results * (ABNORMAL) Complete blood count (12/17/2024 5:42 AM EST) [facility] WBC 9.7 4.8 - 10.8 K/mcL LAB HEMETOLOGY METHOD 12/17/2024 10:22 AM [facility] RBC 3.20(L) 3.80 - 4.80 M/mcL LAB HEMETOLOGY METHOD 12/17/2024 10:22 AM [facility] Hemoglobin 10.1(L) 11.5 - 16.0 g/dL LAB HEMETOLOGY METHOD 12/17/2024 10:22 AM [facility] Hematocrit 32.8(L) 35.0 - 47.0 % LAB HEMETOLOGY METHOD 12/17/2024 10:22 AM [facility] MCV 102.8(H) 79.0 - 98.0 FL LAB HEMETOLOGY METHOD 12/17/2024 10:22 AM [facility] MCH 31.7 27.0 - 32.0 pcg LAB HEMETOLOGY METHOD 12/17/2024 10:22 AM [facility] MCHC 30.8(L) 32.0 - 37.0 g/dL LAB HEMETOLOGY METHOD 12/17/2024 10:22 AM [facility] RDW 16.4(H) 11.0 - 15.0 % LAB HEMETOLOGY METHOD 12/17/2024 10:22 AM [facility] Platelets 177 130 - 400 K/mcL LAB HEMETOLOGY METHOD 12/17/2024 10:22 AM [facility] MPV 10.4 7.0 - 11.0 FL LAB HEMETOLOGY METHOD 12/17/2024 10:[address] [facility] NRBC 0.0 <1.0 % LAB HEMETOLOGY METHOD 12/17/2024 10:[address] [facility] NRBC Absolute 0.00 <0.10 K/mcL LAB HEMETOLOGY METHOD 12/17/2024 10:[address] [facility] Blood Venous blood specimen / Unknown Venipuncture / Unknown 12/17/2024 5:42 AM EST 12/17/2024 9:08 AM EST Christopher Rutledge MD LAB BLOOD ORDERABLES Final Res ult [facility] [address] [place] [address], * (ABNORMAL) Basic metabolic panel (12/17/2024 5:42 AM EST) Sodium 139 133 - 145 mmol/L LAB CHEMISTRY METHOD 12/17/2024 10:17 AM [facility] Potassium 5.2 3.5 - 5.5 mmol/L LAB CHEMISTRY METHOD 12/17/2024 10:17 AM [facility] Chloride 110 96 - 110 mmol/L LAB CHEMISTRY METHOD 12/17/2024 10:17 AM [facility] CO2 26 21 - 32 mmol/L LAB CHEMISTRY METHOD 12/17/2024 10:17 AM [facility] Anion Gap 3 3 - 11 LAB CHEMISTRY METHOD 12/17/2024 10:17 AM [facility] Glucose 104(H) 70 - 100 mg/dL LAB CHEMISTRY METHOD 12/17/2024 10:17 AM [facility] BUN 38(H) 5 - 25 mg/dL LAB CHEMISTRY METHOD 12/17/2024 10:17 AM [facility] Creatinine 1.37(H) 0.50 - 1.10 mg/dL LAB CHEMISTRY METHOD 12/17/2024 10:17 AM [facility] eGFR 39(L) >=60 mL/min/1. 73m2 LAB CHEMISTRY METHOD 12/17/2024 10:17 AM [facility] Comment:Calculation based on the??Chronic Kidney Disease Epidemiology Collaboration (CKD-EPI) equation refit??without adjustment for race. BUN/Creatinine Ratio 27.7 LAB CHEMISTRY METHOD 12/17/2024 10:17 AM [facility] Calcium 7.8(L) 8.5 - 10.5 mg/dL LAB CHEMISTRY METHOD 12/17/2024 10:17 AM [facility] Blood Venous blood specimen / Unknown Venipuncture / Unknown 12/17/2024 5:42 AM EST 12/17/2024 9:08 AM EST us Christopher Rutledge MD LAB BLOOD ORDERABLES Final Res ult [facility] [address] [place] [address], * (ABNORMAL) CBC auto differential (12/08/2024 7:14 AM EST) WBC 8.4 4.8 - 10.8 K/mcL LAB HEMETOLOGY METHOD 12/08/2024 10:23 AM [facility] RBC 3.60(L) 3.80 - 4.80 M/mcL LAB HEMETOLOGY METHOD 12/08/2024 10:23 AM [facility] Hemoglobin 10.8(L) 11.5 - 16.0 g/dL LAB HEMETOLOGY METHOD 12/08/2024 10:23 AM [facility] Hematocrit 34.0(L) 35.0 - 47.0 % LAB HEMETOLOGY METHOD 12/08/2024 10:23 AM [facility] MCV 95.2 79.0 - 98.0 FL LAB HEMETOLOGY METHOD 12/08/2024 10:23 AM [facility] MCH 30.3 27.0 - 32.0 pcg LAB HEMETOLOGY METHOD 12/08/2024 10:23 AM [facility] MCHC 31.8(L) 32.0 - 37.0 g/dL LAB HEMETOLOGY METHOD 12/08/2024 10:23 AM [facility] RDW 14.6 11.0 - 15.0 % LAB HEMETOLOGY METHOD 12/08/2024 10:23 AM [facility] Platelets 182 130 - 400 K/mcL LAB HEMETOLOGY METHOD 12/08/2024 10:23 AM [facility] MPV 10.9 7.0 - 11.0 FL LAB HEMETOLOGY METHOD 12/08/2024 10:23 AM [facility] NRBC 0.0 <1.0 % LAB HEMETOLOGY METHOD 12/08/2024 10:23 AM [facility] NRBC Absolute 0.00 <0.10 K/mcL LAB HEMETOLOGY METHOD 12/08/2024 10:23 AM [facility] Neutrophils Relative 83.0 % LAB HEMETOLOGY METHOD 12/08/2024 10:23 AM [facility] Lymphocytes Relative 7.1 % LAB HEMETOLOGY METHOD 12/08/2024 10:23 AM [facility] Monocytes Relative 7.5 % LAB HEMETOLOGY METHOD 12/08/2024 10:23 AM [facility] Eosinophils Relative 0.0 % LAB HEMETOLOGY METHOD 12/08/2024 10:23 AM [facility] Basophils Relative 0.4 % LAB HEMETOLOGY METHOD 12/08/2024 10:[address] [facility] Immature Granulocytes Relative 2.0 % LAB HEMETOLOGY METHOD 12/08/2024 10:[address] [facility] Neutrophils Absolute 6.98 1.50 - 7.00 K/mcL LAB HEMETOLOGY METHOD 12/08/2024 10:[address] [facility] Lymphocytes Absolute 0.60(L) 1.00 - 5.00 K/mcL LAB HEMETOLOGY METHOD 12/08/2024 10:[address] [facility] Monocytes Absolute 0.63 0.20 - 1.00 K/mcL LAB HEMETOLOGY METHOD 12/08/2024 10:[address] [facility] Eosinophils Absolute 0.00 0.00 - 0.50 K/mcL LAB HEMETOLOGY METHOD 12/08/2024 10:[address] [facility] Basophils Absolute 0.03 0.00 - 0.20 K/mcL LAB HEMETOLOGY METHOD 12/08/2024 10:[address] [facility] Immature Granulocytes Absolute 0.17(H) 0.00 - 0.03 K/mcL LAB HEMETOLOGY METHOD 12/08/2024 10:23 AM [facility] Blood Venous blood specimen / Unknown Venipuncture / Unknown 12/08/2024 7:14 AM EST 12/08/2024 9:29 AM EST us Christopher Rutledge MD LAB BLOOD ORDERABLES Final Res ult [facility] [address] [place] [address], * Magnesium (12/08/2024 7:14 AM EST) Magnesium 2.3 1.9 - 2.6 mg/dL LAB CHEMISTRY METHOD 12/08/2024 10:[address] [facility] Blood Venous blood specimen / Unknown Venipuncture / Unknown 12/08/2024 7:14 AM EST 12/08/2024 9:29 AM EST us Christopher Rutledge MD LAB BLOOD ORDERABLES Final Res ult [facility] [address] [place] [address], * (ABNORMAL) Comprehensive metabolic panel (12/08/2024 7:14 AM EST) Sodium 139 133 - 145 mmol/L LAB CHEMISTRY METHOD 12/08/2024 10:48 AM [facility] Potassium 4.0 3.5 - 5.5 mmol/L LAB CHEMISTRY METHOD 12/08/2024 10:48 AM [facility] Chloride 108 96 - 110 mmol/L LAB CHEMISTRY METHOD 12/08/2024 10:48 AM [facility] CO2 24 21 - 32 mmol/L LAB CHEMISTRY METHOD 12/08/2024 10:48 AM [facility] Anion Gap 7 3 - 11 LAB CHEMISTRY METHOD 12/08/2024 10:48 AM [facility] Glucose 153(H) 70 - 100 mg/dL LAB CHEMISTRY METHOD 12/08/2024 10:48 AM [facility] BUN 39(H) 5 - 25 mg/dL LAB CHEMISTRY METHOD 12/08/2024 10:48 AM [facility] Creatinine 1.25(H) 0.50 - 1.10 mg/dL LAB CHEMISTRY METHOD 12/08/2024 10:48 AM [facility] eGFR 44(L) >=60 mL/min/1. 73m2 LAB CHEMISTRY METHOD 12/08/2024 10:48 AM [facility] Comment:Calculation based on the??Chronic Kidney Disease Epidemiology Collaboration (CKD-EPI) equation refit??without adjustment for race. BUN/Creatinine Ratio 31.2 LAB CHEMISTRY METHOD 12/08/2024 10:48 AM [facility] Calcium 7.8(L) 8.5 - 10.5 mg/dL LAB CHEMISTRY METHOD 12/08/2024 10:48 AM [facility] AST (SGOT) 17 10 - 42 unit/L LAB CHEMISTRY METHOD 12/08/2024 10:48 AM [facility] ALT (SGPT) 22 10 - 60 unit/L LAB CHEMISTRY METHOD 12/08/2024 10:48 AM [facility] Alkaline Phosphatase 89 42 - 121 unit/L LAB CHEMISTRY METHOD 12/08/2024 10:48 AM [facility] Total Protein 5.0(L) 6.0 - 8.0 g/dL LAB CHEMISTRY METHOD 12/08/2024 10:48 AM [facility] Albumin 2.1(L) 3.2 - 5.0 g/dL LAB CHEMISTRY METHOD 12/08/2024 10:48 AM [facility] Total Bilirubin 0.3 0.0 - 1.4 mg/dL LAB CHEMISTRY METHOD 12/08/2024 10:48 AM [facility] Blood Venous blood specimen / Unknown Venipuncture / Unknown 12/08/2024 7:14 AM EST 12/08/2024 9:29 AM EST us Christopher Rutledge MD LAB BLOOD ORDERABLES Final Res ult [facility] [address] [place] [address], from Last 3 Months Insurance MEDICAID - [place] MEDICARE Advance Directives Documents on File Type Date Recorded Patient Delivery Table Operator Expl anation Health Care Decision (hx) 09/08/2019 [...] (hx) 09/08/2019 AD JUAREZ DIRECTIVE Care Teams Community Associate Relationship Specialty Start Date End Date Hayden Canchola MD [address] [place] [address] Dr Virgie [place] PCP - General Internal Medicine 10/25/12
--- OUTSIDE RECORDS SUMMARY | 2025-01-01 11:11 | XMS_ITS | Clinical Summary ---
Author Organization [facility] Address [address] [place] [address] Care Team Providers Care Home Health Cna Name Role Phone Hayden Canchola MD Primary Care Provider [phone] Allergies No known active allergies Medications Medication [...] age to complete this topic Care Teams Home Health Cna Relationship Specialty Start Date End Date Hayden Canchola MD [address] [place] [address] [address] [place] [address] PCP - General Wood Inspector 06/02/19
== END 2025-01-01 10:28 | disposition home or self-care (01) ==
PROVIDERS: PCP Internal Medicine; Visit Provider Internal Medicine Hypertension Specialist
DX: N18.30 Chronic kidney disease, stage 3 unspecified (principal); I50.20 Unspecified systolic (congestive) heart failure; N28.1 Cyst of kidney, acquired
CPT/HCPCS: 99214

== ENCOUNTER → 2025-01-01 10:02 | Outpatient (BNVA) | payer MEDICARE, MEDICAID, SELFPAY | PROVIDERS: PCP Internal Medicine; Visit Provider Internal Medicine Hypertension Specialist | DX: E11.22 Type 2 diabetes mellitus with diabetic chronic kidney disease (principal); I13.0 Hypertensive heart and chronic kidney disease with heart failure and stage 1 through stage 4 chronic kidney disease, or unspecified chronic kidney disease; N18.30 Chronic kidney disease, stage 3 unspecified; I50.20 Unspecified systolic (congestive) heart failure; N28.1 Cyst of kidney, acquired | CPT/HCPCS: 99212 ==

== ENCOUNTER 2025-02-12 06:05 | Outpatient (REF) | payer MEDICARE, MEDICAID, SELFPAY ==
[2025-02-12 05:41] LABS: MANUAL DIFF FLAG NO
--- OUTSIDE RECORDS SUMMARY | 2025-02-12 06:14 | XMS_ITS | Clinical Summary ---
Author Organization [facility] Address [address] [place] [address] Phone Care Team Providers Care Transportation Dispatcher Name Role Phone Hayden Canchola MD Primary Care Provider [phone] Allergies No known active allergies Medications aspirin [...] Due Date Last Done Comments Pneumococcal Vaccine: 50+ Ye ars (1 of 2 - PCV) 1964 Diabetes: Ophthalmology Exam 09/05/2021 Diabetes: Pedal Pulse Checked 09/05/2021 Diabetes: Sensory Foot Exam 09/05/2021 Diabetes: Visual Foot Exam 09/05/2021 Diabetes: Hemoglobin A1C 05/02/2025 01/31/2025 Influenza Vaccine (Season Ended) 2025 Hepatitis B Vaccine Aged Out No longe r eligible based on patient's age to complete this topic Insurance Medicaid [place] Medicare Medicaid [place] Medicare Care Teams Transportation Dispatcher Relationship Specialty Start Date End Date Hayden Canchola MD [address] [place] PCP - General Internal Medicine 06/11/21
--- OUTSIDE RECORDS SUMMARY | 2025-02-12 06:15 | XMS_ITS | Encounter Summary ---
Author Organization [facility] Address [address] [place] [address] Care Team Providers Care Water Pump Installer Name Role Phone Physician, Pcp Unknown Primary Care Provider Pauly vailable Encounter Details Date Type Department Care Team (Late st Contact Info) Description 12/17/[address] [facility] - Main Lab [address] [place] [address] Christopher Rutledge MD [address] [place] [id number] Encounter for other general examination Social History Tobacco Use Types Packs/Day Years Used Date Smoking Tobacco: Never Assessed Comments Unknown Sex and Gender Information Value Date Recorded Sex Assigned at Female 01/31/2025 12:19 PM EDT Legal Sex Female 11:47 PM EST Gender Identity Female 01/31/2025 12:19 PM EDT Sexual Orientation Straight 01/31/2025 12 :19 PM EDT documented as of this encounter Plan of Treatment Upcoming Encounters Date Type Department Care Team (Late st Contact Info) Description 05/14/2025 9:45 AM EDT Office Visit [facility] Hematology Oncology [address] [place] [address] Coleman Faye MD [address] [place] [address] documented as of this encounter Procedures Procedure Name Priority Date/Time Associated Diagnosis Comments COMPLETE BLOOD COUNT Routine 12/17/2024 5:42 AM EST Encounter for other general examination BASIC METABOLIC PANEL Routine 12/17/2024 5:42 AM EST Encounter for other general examination documented in this encounter Results * (ABNORMAL) Complete blood count (12/17/2024 5:42 AM EST) WBC 9.7 4.8 - 10.8 K/mcL LAB HEMETOLOGY METHOD 12/17/2024 10:22 AM [facility] RBC 3.20(L) 3.80 - 4.80 M/mcL LAB HEMETOLOGY METHOD 12/17/2024 10:22 AM [facility] Hemoglobin 10.1(L) 11.5 - 16.0 g/dL LAB HEMETOLOGY METHOD 12/17/2024 10:22 AM [facility] Hematocrit 32.8(L) 35.0 - 47.0 % LAB HEMETOLOGY METHOD 12/17/2024 10:22 AM [facility] MCV 102.8(H) 79.0 - 98.0 FL LAB HEMETOLOGY METHOD 12/17/2024 10:22 AM [facility] MCH 31.7 27.0 - 32.0 pcg LAB HEMETOLOGY METHOD 12/17/2024 10:22 AM [facility] MCHC 30.8(L) 32.0 - 37.0 g/dL LAB HEMETOLOGY METHOD 12/17/2024 10:22 AM [facility] RDW 16.4(H) 11.0 - 15.0 % LAB HEMETOLOGY METHOD 12/17/2024 10:22 AM [facility] Platelets 177 130 - 400 K/mcL LAB HEMETOLOGY METHOD 12/17/2024 10:22 AM [facility] MPV 10.4 7.0 - 11.0 FL LAB HEMETOLOGY METHOD 12/17/2024 10:[address] [facility] NRBC 0.0 <1.0 % LAB HEMETOLOGY METHOD 12/17/2024 10:[address] [facility] NRBC Absolute 0.00 <0.10 K/mcL LAB HEMETOLOGY METHOD 12/17/2024 10:[address] [facility] Blood Venous blood specimen / Unknown Venipuncture / Unknown 12/17/2024 5:42 AM EST 12/17/2024 9:08 AM EST us Christopher Rutledge MD LAB BLOOD ORDERABLES Final Res ult [facility] [address] [place] [address], [place] [phone] * (ABNORMAL) Basic metabolic panel (12/17/2024 5:42 AM EST) Sodium 139 133 - 145 mmol/L LAB CHEMISTRY METHOD 12/17/2024 10:17 AM [facility] Potassium 5.2 3.5 - 5.5 mmol/L LAB CHEMISTRY METHOD 12/17/2024 10:17 AM [facility] Chloride 110 96 - 110 mmol/L LAB CHEMISTRY METHOD 12/17/2024 10:17 AM [facility] CO2 26 21 - 32 mmol/L LAB CHEMISTRY METHOD 12/17/2024 10:17 AM [facility] Anion Gap 3 3 - 11 LAB CHEMISTRY METHOD 12/17/2024 10:17 AM [facility] Glucose 104(H) 70 - 100 mg/dL LAB CHEMISTRY METHOD 12/17/2024 10:17 AM [facility] BUN 38(H) 5 - 25 mg/dL LAB CHEMISTRY METHOD 12/17/2024 10:17 AM [facility] Creatinine 1.37(H) 0.50 - 1.10 mg/dL LAB CHEMISTRY METHOD 12/17/2024 10:[address] [facility] eGFR 39(L) >=60 mL/min/1. 73m2 LAB CHEMISTRY METHOD 12/17/2024 10:17 AM [facility] Comment:Calculation based on the??Chronic Kidney Disease Epidemiology Collaboration (CKD-EPI) equation refit??without adjustment for race. BUN/Creatinine Ratio 27.7 LAB CHEMISTRY METHOD 12/17/2024 10:17 AM [facility] Calcium 7.8(L) 8.5 - 10.5 mg/dL LAB CHEMISTRY METHOD 12/17/2024 10:17 AM [facility] Blood Venous blood specimen / Unknown Venipuncture / Unknown 12/17/2024 5:42 AM EST 12/17/2024 9:08 AM EST us Christopher Rutledge MD LAB BLOOD ORDERABLES Final Res ult [facility] [address] [place] [address], documented in this encounter Visit Diagnoses Diagnosis Encounter for other general examination documented in this encounter Additional Health Concerns Infection Onset Date Last Indicated Resolved Time Respiratory Rule-Out 01/31/2025 01/31/2025 025 7:39 PM EDT COVID-19 Rule-Out 01/31/2025 01/31/2025 01/31/2025 7:39 PM EDT documented as of this encounter Care Teams Water Pump Installer Relationship Specialty Start Date End Date Physician, Pcp Unknown PCP - General 01/31/25 documented as of this encounter
--- OUTSIDE RECORDS SUMMARY | 2025-02-12 06:15 | XMS_ITS | Clinical Summary ---
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 levels of biotin in samples may falsely decrease hsTroponin values. ??Use caution when interpreting hsTroponin results in patients taking biotin who exhibit renal impairment (eGFR <60) or in patients taking more than 20 mg/day of biotin. us Shraddha PEPE LAB BLOOD ORDERABLES Final Re sult Performing Organization Address [facility] Co de Phone Number [facility] [address] [place] [address], [place] [phone] * MRSA molecular study (02/02/2025 11:13 AM EDT) [facility] MRSA Screen PCR Not Detected Not Detected LAB MICROBIOLOGY METHOD 02/02/2025 2:06 PM EDT [facility] Swab Both anterior nares / Unknown Non-blood Collection / Unknown 02/02/2025 11:13 AM EDT 02/02/2025 11:49 AM EDT us Ekta Chapin MD LAB MICROBIOLOGY - GENERAL ORDER JANESSA Final Result Performing Organization Address City/[facility]/ZIP Co de Phone Number [facility] [address] [place] [address], [place] [phone] * Legionella antigen urine, EIA (02/02/2025 11:12 AM EDT) [facility] Legionella Antigen, Ur Negative Negative 02/02/2025 1:26 PM EDT [facility] Urine Urine specimen from urinary conduit / Unknown Non-blood Collection / Unknown 02/02/2025 11:12 AM EDT 02/02/2025 11:49 AM EDT Narrative [facility] - 02/02/2025 1:26 PM EDT Negative for Legionella pneumophilia serogroup 1 antigen. This presumptive result suggests no current or recent infection due to L. pneumophilia serogroup 1. Culture is recommended if Legionella infection is till suspected, as other serogroups and species of Legionella are not detected by this test. us Ekta Chapin MD LAB URINE ORDERABLES Final Resul t Performing Organization Address [facility]/ZIP Co de Phone Number [facility] [address] [place] [address], [place] [phone] * (ABNORMAL) TRANSTHORACIC ECHOCARDIOGRAM (TTE) COMPLETE W/ CONTRAST (02/02/2025 10:06 AM EDT) RA Area 13.1 cm2 CV PACS RA 2D Volume 34 mL CV PACS Left Atrium Major Luther 5.8 cm CV PACS LA Area Sys (A4C) 18 cm2 CV PACS AV Mean Gradient 12 mmHg CV PACS Ao VTI 52.0 cm CV PACS AV Peak Ethan 2.3 m/s CV PACS AV Peak Gradient 21 mmHg CV PACS AV Area Continuity Equation 1.0 cm2 CV PACS AV Area Peak Velocity 1.2 cm2 CV PACS Aortic Sinus Valsalva 3.1 cm CV PACS Ascending Aorta 3.1 cm CV PACS IVSD 1.0(A) 0.6 - 0.9 cm CV PACS LVIDD 5.1 3.8 - 5.2 cm CV PACS LVIDS 4.4(A) 2.2 - 3.5 cm CV PACS LVOT Diameter 2.0 cm CV PACS LVOT Mean Ethan 0.7 m/s CV PACS LVOT Mean Grad 2 mmHg CV PACS LVOT Peak VTI 17.0 cm CV PACS LVOT Peak Ethan 0.9 m/s CV PACS LVOT Peak Gradient 3 mmHg CV PACS LVPWD 0.8 0.6 - 0.9 cm CV PACS MV E' Tissue Velocity Lateral 5 cm/s CV PACS MV E' Tissue Velocity Septal 4 cm/s CV PACS LVOT Area 3.1 cm2 CV PACS LVOT Stroke Volume 50 mL CV PACS MV Deceleration Sevier 4.2 m/s2 CV PACS E Wave Deceleration Time 202 119 - 242 ms CV PACS MV PHT 59 ms CV PACS MV Peak A Ethan 1.00 m/s CV PACS MV Peak E Ethan 0.90 m/s CV PACS MV Area PHT 3.7 cm2 CV PACS PV Acceleration Time 64 ms CV PACS RV Diastolic Basal Dimension 3.0 2.5 - 4.1 cm CV PACS RV S' 9 cm/s CV PACS TAPSE 16 mm CV PACS TR Peak Velocity 1.90 m/s CV PACS TR Peak Gradient 21 mmHg CV PACS E/E' Ratio Septal 23 CV PACS E/E' Ratio Averaged 20 CV PACS LVOT Stroke Index 0 mL/m2 CV PACS Relative Wall Thickness ratio 0.33 0.22 - 0.42 CV PACS LVOT:AV VTI Index 0.31 CV PACS FS 14 % CV PACS LV Mass 2D 163(A) 66 - 150 g CV PACS Ascending Aorta Index 1.90 cm/m2 CV PACS LVOT flow 220 mL/s CV PACS RANDALL Index (VTI) 0.63 cm2/m2 CV PACS RANDALL Index (Pk Ethan) 0.74 cm2/m2 CV PACS LVIDD Index 3.13 cm/m2 CV PACS LVIDS Index 2.70 cm/m2 CV PACS AV Velocity Ratio 0.38 CV PACS E/A Ratio 0.9 0.8 - 2.0 CV PACS E/E' Ratio Lateral 18 CV PACS LV Mass Index 2D 100(A) 44 - 88 g/m2 CV PACS BSA 1.66 m2 CV PACS Ejection Fraction (BP) 43 % CV PACS Ejection Fraction (A4C) 36 % CV PACS Ejection Fraction (A2C) 43 % CV PACS LV Diastolic Volume (BP) 183(A) 46 - 106 mL CV PACS LV Diastolic Volume Index (BP) 0(A) 29 - 61 mL/m2 CV PACS LV Systolic Volume (BP) 105(A) 14 - 42 mL CV PACS LV Systolic Volume Index (BP) 0(A) 8 - 24 mL/m2 CV PACS LV EDV (A4C) 160 mL CV PACS LV EDV Index (A4C) 98 mL/m2 CV PACS LV ESV (A4C) 102 mL CV PACS LV ESV Index (A4C) 63 mL/m2 CV PACS LV EDV (A2C) 181 mL CV PACS LV EDV Index (A2C) 111 mL/m2 CV PACS LV ESV (A2C) 103 mL CV PACS LV ESV Index (A2C) 63 mL/m2 CV PACS LA Volume (A-L) 89 mL CV PACS LA Volume Index (A-L) 55 mL/m2 CV PACS RV Free Wall Peak S' 8 cm/s CV PACS RA Major Luther 4.3 cm CV PACS RA Major Luther Index 2.6 2.2 - 2.8 cm/m2 CV PACS RA 2D Volume Index 21 15 - 27 mL/m2 CV PACS AV Area 2D 1.2 cm2 CV PACS RANDALL Index (2D) 0.74 cm2/m2 CV PACS LV EF MOD 2C 43 % CV PACS LV EF 4C A-L 34 % CV PACS LV EDV 4C A-L 134 mL CV PACS LV Length Sys (A4C) 7.5 cm CV PACS LV Length Arvizu (A4C) 7.9 cm CV PACS AV Area Index 0.7 CV PACS Left Ventricular Stroke Volume by 2-D Biplane-MOD 78 mL CV PACS LA Volume (BP) 59 mL CV PACS LA Volume Index (BP) 35 mL/m2 CV PACS LA Area Sys (A2C) 21 cm2 CV PACS Right Ventricular Peak Systolic Pressure 17 mmHg CV PACS Est. RA Pressure 3 mmHg CV PACS Anatomical Region Laterality Modality Ultrasound Narrative 02/02/2025 11:27 AM EDT ?Left ventricle cavity size is normal. ??There is normal left ventricular wall thickness. ??There is mild to moderate, segmental LV systolic dysfunction. ??There is hypokinesis of the basal to mid inferior and inferoseptal kelley. ??Ejection fraction estimated at 40 to 45%. ?There is Grade II (moderate) diastolic dysfunction consistent with increased left atrial pressure. ??There is normal pulmonary artery systolic pressure. ?Right ventricle cavity is normal. Right ventricular systolic function is normal. ?There is no hemodynamically significant valve disease. ??Mild valvular abnormalities as below. ?No priors that I can see in our system for comparison. ??However, compared to echo report from [facility] from November 2024, EF is actually improved. No prior echocardiograms in our system for comparison. ??Secure text sent to Dr. Chapin. Left Ventricle Left ventricle cavity size is normal. Wall thickness is normal. Systolic function is mildly to moderately decreased with an ejection fraction of 40-45%. Hypokinesis of basal to mid inferoseptum, basal to mid inferior kelley. There is grade II (moderate) diastolic dysfunction and elevated left atrial pressure. Right Ventricle Right ventricle cavity appears normal. Systolic function is normal. Left Atrium Left atrium cavity is mildly dilated. Right Atrium Right atrium cavity is normal. IVC/SVC Inferior vena cava structure is normal. RA pressures is estimated to be 3 mmHg (IVC diameter <21 mm and decreases >50% during inspiration). Mitral Valve The leaflets are mildly thickened. There is mild regurgitation. There is no evidence of mitral valve stenosis. Tricuspid Valve The leaflets exhibit normal excursion. There is mild regurgitation. The RVSP is estimated at 17 mmHg. Aortic Valve The aortic valve is trileaflet. The leaflets are mildly thickened. There is trace regurgitation. There is no evidence of aortic valve stenosis. Pulmonic Valve Pulmonic valve structure is normal. There is mild pulmonic valve regurgitation. Ascending Aorta The aorta appears normal in size. Pericardium There is an anterior fat pad. There is no pericardial effusion. Study Details Overall the study quality was technically difficult. Definity contrast was given to enhance imaging. Study was difficult due to: poor endocardial visualization and procedure performed with the patient in a supine position. us Ekta Chapin MD CV ECHO PROCEDURES Final Result * (ABNORMAL) Iron and TIBC (02/02/2025 4:19 AM EDT) Pathologist [facility] Iron 20(L) 40 - 150 mcg/dL LAB CHEMISTRY METHOD 02/02/2025 11:08 AM EDT [facility] TIBC 172(L) 250 - 450 mcg/dL LAB CHEMISTRY METHOD 02/02/2025 11:08 AM EDT [facility] Iron Saturation 12(L) 15 - 50 % LAB CHEMISTRY METHOD 02/02/2025 11:08 AM EDT [facility] Blood Venous blood specimen / Unknown Venipuncture / Unknown 02/02/2025 4:19 AM EDT 02/02/2025 4:58 AM EDT us Ekta Chapin MD LAB BLOOD ORDERABLES Final Resul t [facility] [address] [place] [address], * Ferritin (02/02/2025 4:19 AM EDT) Ferritin 181 8 - 252 ng/mL LAB CHEMISTRY METHOD 02/02/2025 11:08 AM EDT [facility] Blood Venous blood specimen / Unknown Venipuncture / Unknown 02/02/2025 4:19 AM EDT 02/02/2025 4:58 AM EDT Ekta Chapin MD LAB BLOOD ORDERABLES Final Resul t Performing Organization Address City/[facility]/ZIP Co de Phone Number [facility] [address] [place] [address], [place] [phone] * ECG-Annotated (02/02/2025) us Provider Onbase ECG ORDERABLES Final Result * Light blue tube (02/01/2025 4:19 PM EDT) Pathologist [facility] Extra Tube Hold for add-ons. 02/01/2025 6:03 PM EDT [facility] Comment:Auto resulted. Blood Venous blood specimen / Unknown 02/01/2025 4:19 PM EDT 02/01/2025 4:48 PM EDT Ekta Chapin MD LAB BLOOD ORDERABLES Final Resul t Performing Organization Address City/[facility]/ZIP Co de Phone Number [facility] [address] [place] [address], [place] [phone] * (ABNORMAL) Arterial blood gas (02/01/2025 4:14 PM EDT) pH, Arterial 7.42 7.35 - 7.45 pH 02/01/2025 4:23 PM EDT [facility] pCO2, Arterial 30(L) 35 - 45 mmHg 02/01/2025 4:23 PM EDT [facility] pO2, Arterial 61(L) 80 - 100 mmHg 02/01/2025 4:23 PM EDT [facility] HCO3, Arterial 21.5(L) 22.0 - 26.0 mmol/L 02/01/2025 4:23 PM EDT [facility] O2 Sat, Arterial 94.6(L) 95.0 - 98.0 % 02/01/2025 4:23 PM EDT [facility] Base Excess, Arterial -4.3(L) -2.0 - 2.0 mmol/L 02/01/2025 4:23 PM EDT [facility] Rafael Test Pass Pass, Unresponsi ve, Line 02/01/2025 4:23 PM EDT [facility] FIO2 40.00 02/01/2025 4:23 PM EDT [facility] Comment:bipap Blood Arterial blood specimen / Unknown Arterial Puncture / Unknown 02/01/2025 4:14 PM EDT 02/01/2025 4:19 PM EDT us Ekta Chapin MD LAB BLOOD ORDERABLES Final Resul t [facility] [address] [place] [address], [place] [phone] * (ABNORMAL) Complete blood count (02/01/2025 5:42 AM EDT) Only the most recent of2 resultswithin the time period is included. WBC 8.3 4.8 - 10.8 K/mcL LAB HEMETOLOGY METHOD 02/01/2025 6:21 AM EDT [facility] RBC 2.30(L) 3.80 - 4.80 M/[facility] LAB HEMETOLOGY METHOD 02/01/2025 6:21 AM EDT [facility] Hemoglobin 7.2(L) 11.5 - 16.0 g/dL LAB HEMETOLOGY METHOD 02/01/2025 6:21 AM T [facility] Hematocrit 23.7(L) 35.0 - 47.0 % LAB HEMETOLOGY METHOD 02/01/2025 6:21 AM EDT [facility] MCV 103.0(H) 79.0 - 98.0 FL LAB HEMETOLOGY METHOD 02/01/2025 6:21 AM EDT [facility] MCH 31.3 27.0 - 32.0 pcg LAB HEMETOLOGY METHOD 02/01/2025 6:21 AM EDT [facility] MCHC 30.4(L) 32.0 - 37.0 g/dL LAB HEMETOLOGY METHOD 02/01/2025 6:21 AM EDT [facility] RDW 18.6(H) 11.0 - 15.0 % LAB HEMETOLOGY [facility] Plate[facility] 304 130 - 400 K/mcL LAB HEMETOLOGY METHOD 02/01/2025 6:21 AM EDT [facility] MPV 9.4 7.0 - 11.0 FL LAB HEMETOLOGY METHOD 02/01/2025 6:21 AM EDT [facility] NRBC 0.0 <1.0 % LAB HEMETOLOGY METHOD [facility] NRBC Absolute 0.00 <0.10 K/mcL LAB HEMETOLOGY METHOD 02/01/2025 6:21 AM [facility] Blood Venous blood specimen / Unknown Venipuncture / Unknown 02/01/2025 5:42 AM EDT 02/01/2025 5:57 AM EDT us Xavier Hooper MD LAB BLOOD ORDERABLES Final Resu lt [facility] [address] [place] [address], * Lactate, with reflex (01/31/2025 9:54 PM EDT) Only the most recent of2 resultswithin the time period is included. [facility] LACTIC ACID 1.2 0.4 - 2.0 mmol/L LAB CHEMISTRY METHOD 01/31/2025 10:28 PM EDT [facility] Blood Venous blood specimen / Unknown Venipuncture / Unknown 01/31/2025 9:54 PM EDT 01/31/2025 9:59 PM EDT us Shawnee PEPE LAB BLOOD ORDERABLES Final Re sult [facility] [address] [place] [address], * Respiratory virus panel molecular study (01/31/2025 6:38 PM EDT) [facility] Adenovirus Detection by PCR Not Detected Not Detected LAB MICROBIOLOGY METHOD 01/31/2025 7:39 PM EDT [facility] Influenza A PCR Not Detected Not Detected LAB MICROBIOLOGY METHOD 01/31/2025 7:39 PM EDT [facility] Influenza B PCR Not Detected Not Detected LAB MICROBIOLOGY METHOD 01/31/2025 7:39 PM EDT [facility] Coronavirus 229E Not Detected Not Detected LAB MICROBIOLOGY METHOD 01/31/2025 7:39 PM EDT [facility] Coronavirus HKU1 Not Detected Not Detected LAB MICROBIOLOGY METHOD 01/31/2025 7:39 PM EDT [facility] Coronavirus OC43 Not Detected Not Detected LAB MICROBIOLOGY METHOD 01/31/2025 7:39 PM EDT [facility] Coronavirus NL63 Not Detected Not Detected LAB MICROBIOLOGY METHOD 01/31/2025 7:39 PM EDT [facility] Parainfluenza Virus 1 Not Detected Not Detected LAB MICROBIOLOGY METHOD 01/31/2025 7:39 PM EDT [facility] Parainfluenza Virus 2 Not Detected Not Detected LAB MICROBIOLOGY METHOD 01/31/2025 7:39 PM EDT [facility] Parainfluenza Virus 3 Not Detected Not Detected LAB MICROBIOLOGY METHOD 01/31/2025 7:39 PM EDT [facility] Parainfluenza Virus 4 Not Detected Not Detected LAB MICROBIOLOGY METHOD 01/31/2025 7:39 PM EDT [facility] RSV PCR Not Detected Not Detected LAB MICROBIOLOGY METHOD 01/31/2025 7:39 PM EDT [facility] Human Metapneumovirus A and B Not Detected Not Detected LAB MICROBIOLOGY METHOD 01/31/2025 7:39 PM EDT [facility] Rhinovirus/Entero virus Not Detected Not Detected LAB MICROBIOLOGY METHOD 01/31/2025 7:39 PM EDT [facility] Bordetella pertussis Not Detected Not Detected LAB MICROBIOLOGY METHOD 01/31/2025 7:39 PM EDT [facility] Bordetella parapertussis Not Detected Not Detected LAB MICROBIOLOGY METHOD 01/31/2025 7:39 PM EDT [facility] Mycoplasma pneumo by PCR Not Detected Not Detected LAB MICROBIOLOGY METHOD 01/31/2025 7:39 PM EDT [facility] Chlamydia pneumoniae Not Detected Not Detected LAB MICROBIOLOGY METHOD 01/31/2025 7:39 PM EDT [facility] SARS COV-2 Not Detected Not Detected LAB MICROBIOLOGY METHOD 01/31/2025 7:39 PM EDT [facility] Swab Both anterior nares / Unknown Non-blood Collection / Unknown 01/31/2025 6:38 PM EDT 01/31/2025 6:44 PM EDT [facility] - 01/31/2025 7:39 PM EDT Testing was performed using the [employer] Respiratory Pathogen PCR Assay. All results must be correlated with the clinical findings. Results should not be used as the sole basis for diagnosis. False Negative results may occur from the presence of sequence variants in the region targeted by the assay or the presence of inhibitors. Results may be affected by concurrent antiviral/antimicrobial therapy or levels of organisms that are below the limit of detection. Shawnee PEPE LAB MICROBIOLOGY - GENERAL OR DERABLES Final Result Performing Organization Address [facility]/ZIP Co de Phone Number [facility] [address] [place] [address], [place] [phone] * Blood Culture, Peripheral Draw #1 (01/31/2025 6:38 PM EDT) Only the most recent of2 resultswithin the time period is included. Culture, Blood No growth at 5 days LAB MICROBIOLOGY METHOD 02/05/2025 7:01 PM EDT [facility] Blood Venous blood specimen / Unknown Venipuncture / Unknown 01/31/2025 6:38 PM EDT 01/31/2025 6:45 PM EDT [facility] PEPE LAB MICROBIOLOGY - GENERAL OR DERABLES Final Result Performing Organization Address [facility] de Phone Number [facility] [address] [place] [address], [place] [phone] * CT Abdomen Pelvis w Contrast (01/31/2025 5:20 PM EDT) Anatomical Region Laterality Modality Body Computed Tomogra phy 01/31/2025 6:13 PM EDT Impressions 01/31/2025 6:13 PM EDT No evidence of acute traumatic injury in the abdomen and pelvis. Indeterminate left adrenal nodule. Additional findings as above. This document has been electronically signed by: Frederick Garcia MD on 01/31/2025 18:13:19 Narrative 01/31/2025 6:13 PM EDT INDICATION: Abdominal trauma CT abdomen and pelvis with contrast Comparison: None Findings: The liver is normal in size without suspicious focal hepatic lesions. No intrahepatic or extrahepatic ductal dilatation is seen. The hepatic and portal veins are patent. No calcified gallstones in the gallbladder. Pancreas, spleen are normal in appearance. 1.2 x 1.6 cm left adrenal nodule. No suspicious focal lesion of the kidneys. Cortical scarring of the left kidney from previous UTIs. There is a left renal cyst. No hydronephrosis or calculi. The abdominal aorta demonstrates no evidence of aneurysmal dilatation or dissection. Atherosclerosis calcification of the aorta and branches. Ectasia of the abdominal aorta. The colon is normal in appearance and without wall thickening or inflammatory change. No evidence of bowel obstruction. Appendix is normal. The pelvic organs are within normal limits. Bladder decompressed by a Rogers catheter. No intraperitoneal free air or fluid is visualized. No pathologic lymphadenopathy is seen. Prominent left retroperitoneal lymph node 0.8 x 1.3 cm axial image 39. Degenerative changes of the spine. Procedure Note Frederick Garcia MD - 01/31/2025 INDICATION: Abdominal trauma CT abdomen and pelvis with contrast Comparison: None Findings: The liver is normal in size without suspicious focal hepatic lesions. No intrahepatic or extrahepatic ductal dilatation is seen. The hepatic and portal veins are patent. No calcified gallstones in the gallbladder. Pancreas, spleen are normal in appearance. 1.2 x 1.6 cm left adrenal nodule. No suspicious focal lesion of the kidneys. Cortical scarring of the left kidney from previous UTIs. There is a left renal cyst. No hydronephrosis or calculi. The abdominal aorta demonstrates no evidence of aneurysmal dilatation or dissection. Atherosclerosis calcification of the aorta and branches. Ectasia of the abdominal aorta. The colon is normal in appearance and without wall thickening or inflammatory change. No evidence of bowel obstruction. Appendix isnormal. The pelvic organs are within normal limits. Bladder decompressed by a Rogers catheter. No intraperitoneal free air or fluid is visualized. No pathologic lymphadenopathy is seen. Prominent left retroperitoneal lymph node 0.8 x 1.3 cm axial image 39. Degenerative changes of the spine. IMPRESSION: No evidence of acute traumatic injury in the abdomen and pelvis. Indeterminate left adrenal nodule. Additional findings as above. This document has been electronically signed by: Frederick Garcia MD on 01/31/2025 18:13:19 us [place] PEPE IMG CT PROCEDURES Final Resul t * CT Angio Chest wo and/or w Contrast (01/31/2025 5:20 PM EDT) Anatomical Region Laterality Modality Body Computed Tomogra phy 01/31/2025 6:10 PM EDT Impressions 01/31/2025 6:10 PM EDT No pulmonary embolus. Opacities of the left lung concerning for infection. CT chest follow-up is recommended to confirm resolution and exclude pulmonary nodule or mass. Small left pleural effusion. Mildly enlarged subcarinal lymph node. This document has been electronically signed by: Frederick Garcia MD on 01/31/2025 18:10:20 Narrative 01/31/2025 6:10 PM EDT INDICATION: PE suspected, high prob CT angiography chest with contrast. 3D Postprocessing. Comparison: None Findings: The heart is normal size. Unremarkable thoracic aorta and great vessels. No aneurysm. No acute pulmonary embolus. Soft tissue density of the superior mediastinum adjacent to the esophagus is probably a vein. Mildly enlarged subcarinal lymph node 1.5 x 1.9 cm in size. Centrilobular emphysema. Small left pleural effusion. Likely postsurgical changes of the left lung with volume loss. There is shift of the mediastinum to the left. There are opacities of the left lung. The upper abdomen is unremarkable. No acute fractures. Procedure Note Frederick Garcia MD - 01/31/2025 INDICATION: PE suspected, high prob CT angiography chest with contrast. 3D Postprocessing. Comparison: None Findings: The heart is normal size. Unremarkable thoracic aorta and great vessels. No aneurysm. No acute pulmonary embolus. Soft tissue density of the superior mediastinum adjacent to theesophagus is probably a vein. Mildly enlarged subcarinal lymph node 1.5 x 1.9 cmin size. Centrilobular emphysema. Small left pleural effusion. Likelypostsurgical changes of the left lung with volume loss. There is shift of the mediastinum to the left. There are opacities of the left lung. The upper abdomen is unremarkable. No acute fractures. IMPRESSION: No pulmonary embolus. Opacities of the left lung concerning for infection. CT chest follow-upis recommended to confirm resolution and exclude pulmonary nodule or mass. Small left pleural effusion. Mildly enlarged subcarinal lymph node. This document has been electronically signed by: Frederick Garcia MD on 01/31/2025 18:10:20 us [place] PEPE IMG CT PROCEDURES Final Resul t * (ABNORMAL) Urinalysis with reflex microscopic and culture (01/31/2025 4:00 PM EDT) Specific [place] Urine 1.016 1.003 - 1.030 LAB URINALYSIS - AUTOMATED METHOD 01/31/2025 4:44 PM [facility] pH, Urine 6.0 5.0 - 8.0 pH LAB URINALYSIS - AUTOMATED METHOD 01/31/2025 4:44 PM [facility] Leukocytes, Urine Large(A) Negative LAB URINALYSIS - AUTOMATED METHOD 01/31/2025 4:44 PM [facility] Nitrite, Urine Positive(A) Negative LAB URINALYSIS - AUTOMATED METHOD 01/31/2025 4:44 PM [facility] Protein, Urine 100(A) <=Trace mg/dL LAB URINALYSIS - AUTOMATED METHOD 01/31/2025 4:44 PM [facility] Glucose, Urine 500(A) Negative mg/dL LAB URINALYSIS - AUTOMATED METHOD 01/31/2025 4:44 PM [facility] Ketones, Urine Negative Negative mg/dL LAB URINALYSIS - AUTOMATED METHOD 01/31/2025 4:44 PM [facility] [facility] Urobilinogen , Urine 0.2 0.2 - 1.0 mg/dL LAB URINALYSIS - AUTOMATED METHOD 01/31/2025 4:44 PM [facility] Bilirubin, Urine Negative Negative LAB URINALYSIS - AUTOMATED METHOD 01/31/2025 4:44 PM [facility] Blood, Urine Moderate(A) Negative LAB URINALYSIS - AUTOMATED METHOD 01/31/2025 4:44 PM [facility] RBC, Urine 58.2(H) 0 - 4 /HPF LAB URINALYSIS - AUTOMATED METHOD 01/31/2025 4:44 PM EDT [facility] WBC, Urine >4,000(H) 0 - 4 /HPF LAB URINALYSIS - AUTOMATED METHOD 01/31/2025 4:44 PM EDT [facility] Squamous Epithelial, Urine >100(H) 0 - 60 /LPF LAB URINALYSIS - AUTOMATED METHOD 01/31/2025 4:44 PM EDT [facility] Non-Squamous Epithelial, Urine Rare Transitional epithelial cells. /LPF LAB URINALYSIS - AUTOMATED METHOD 01/31/2025 4:44 PM EDT [facility] Bacteria, Urine Few(A) Negative /HPF LAB URINALYSIS - AUTOMATED METHOD 01/31/2025 4:44 PM EDT [facility] Hyaline Casts, Urine 5.0(H) 0 - 3 /LPF LAB URINALYSIS - AUTOMATED METHOD 01/31/2025 4:44 PM EDT [facility] Urine Urine specimen obtained by clean catch procedure / Unknown Non-blood Collection / Unknown 01/31/2025 4:00 PM EDT 01/31/2025 4:06 PM EDT us Xavier Hooper MD LAB URINE ORDERABLES Final Resu lt [facility] [address] [place] [address], * Arteaga urine culture tube (01/31/2025 4:00 PM EDT) Extra Tube Hold for add-ons. 01/31/2025 6:01 PM EDT [facility] Comment:Auto resulted. Urine Urine specimen obtained by clean catch procedure / Unknown Non-blood Collection / Unknown 01/31/2025 4:00 PM EDT 01/31/2025 4:06 PM EDT us Xavier Hooper MD LAB URINE ORDERABLES Final Resu lt [facility] [address] [place] [address], [place] [phone] * (ABNORMAL) Culture urine (01/31/2025 4:00 PM EDT) Culture, Urine >100,000 CFU/mL Escherichia coli(A) ALEXEY 02/02/2025 9:39 AM EDT [facility] Comment: This is an edited result. Previous organism was Gram negative bacilli on 02/01/2025 at 0927 EDT. Urine Urine specimen obtained by clean catch procedure / Unknown Non-blood Collection / Unknown 01/31/2025 4:00 PM EDT 01/31/2025 4:43 PM EDT Narrative Organism Antibiotic Method Susceptibility Escherichia coli Amoxicillin/Clavulanate ALEXEY 4 ug/ml: Susceptible Escherichia coli Ampicillin/Sulbactam ALEXEY <=2 ug/ml: Susceptible Escherichia coli Piperacillin/Tazobactam ALEXEY <=4 ug/ml: Susceptible Escherichia coli Cefazolin (Urine) ALEXEY <=1 ug/ml: Susceptible Escherichia coli Cefoxitin ALEXEY <=4 ug/ml: Susceptible Escherichia coli Ceftazidime ALEXEY <=0.5 ug/ml: Susceptible Escherichia coli Ceftriaxone ALEXEY <=0.25 ug/ml: Susceptible Escherichia coli Cefepime ALEXEY <=0.12 ug/ml: Susceptible Escherichia coli Meropenem ALEXEY <=0.25 ug/ml: Susceptible Escherichia coli Amikacin ALEXEY 2 ug/ml: Susceptible Escherichia coli Gentamicin ALEXEY <=1 ug/ml: Susceptible Escherichia coli Ciprofloxacin ALEXEY <=0.06 ug/ml: Susceptible Escherichia coli Levofloxacin ALEXEY <=0.12 ug/ml: Susceptible Escherichia coli Nitrofurantoin ALEXEY <=16 ug/ml: Susceptible Escherichia coli Trimethoprim/Sulfamethoxazole ALEXEY <=20 ug/ml: Susceptible Xavier Hooper MD LAB MICROBIOLOGY - GENERAL ORDE RABLES Final Result Performing Organization Address [facility]/State/ZIP Co de Phone Number [facility] [address] [place] [address], [place] [phone] * XR Chest 2 Views (01/31/2025 2:12 PM EDT) Anatomical Region Laterality Modality Body Radiographic Ronna ging 01/31/2025 2:53 PM EDT Impressions 01/31/2025 2:53 PM EDT FINDINGS/IMPRESSION: Postsurgical changes left lung with new linear left upper lobe opacity could represent scarring, atelectasis or infiltrate. Stable cardiomediastinal contours. ??No congestive heart failure. ??Degenerative osseous changes. -------- FINAL REPORT -------- Dictated By: Trung Toure Dictated Date: 01/31/2025 14:53 ET Assigned Physician: Trung Toure Reviewed and Electronically Signed By: Trung Toure Signed Date: 01/31/2025 14:53 ET Workstation ID: [id number] Transcribed By: Self Edit Transcribed Date: 01/31/2025 14:53 ET Narrative 01/31/2025 2:53 PM EDT XR CHEST 2 VIEWS INDICATION: general weakness TECHNIQUE: XR CHEST 2 VIEWS COMPARISON: 05/12/2020 Procedure Note Trung Toure MD - 01/31/2025 XR CHEST 2 VIEWS INDICATION: general weakness TECHNIQUE: XR CHEST 2 VIEWS COMPARISON: 05/12/2020 IMPRESSION: FINDINGS/IMPRESSION: Postsurgical changes left lung with new linear leftupper lobe opacity could represent scarring, atelectasis or infiltrate. Stable cardiomediastinal contours. No congestive heart failure.Degenerative osseous changes. -------- FINAL REPORT -------- Dictated By: Trung Toure Dictated Date: 01/31/2025 14:53 ET Assigned Physician: Trung Toure Reviewed and Electronically Signed By: Trung Toure Signed Date: 01/31/2025 14:53 ET Workstation ID: [id number] Transcribed By: Self Edit Transcribed Date: 01/31/2025 14:53 ET [facility] XR PROCEDURES Final Resul t * (ABNORMAL) B-type natriuretic peptide (01/31/2025 1:38 PM EDT) BNP 629(H) <=100 pcg/mL LAB CHEMISTRY METHOD 01/31/2025 2:54 PM EDT [facility] Blood Venous blood specimen / Unknown Venipuncture / Unknown 01/31/2025 1:38 PM EDT 01/31/2025 2:04 PM EDT [facility] BLOOD ORDERABLES Final Re sult Performing Organization Address [facility]/ZIP Co de Phone Number [facility] [address] [place] [address], [place] [phone] * Ammonia (01/31/2025 1:15 PM EDT) Ammonia 27 11 - 35 mcmol/L LAB CHEMISTRY METHOD 01/31/2025 1:54 PM EDT [facility] Blood Venous blood specimen / Unknown Venipuncture / Unknown 01/31/2025 1:15 PM EDT 01/31/2025 1:23 PM EDT [facility] BLOOD ORDERABLES Final Re sult Performing Organization Address [facility] Co de Phone Number [facility] [address] [place] [address], [place] [phone] * CT Cervical Spine wo Contrast (01/31/2025 11:36 AM EDT) Anatomical Region Laterality Modality Spine, C-spine Computed Tomogra phy 01/31/2025 11:4 9 AM EDT Impressions 01/31/2025 11:55 AM EDT No acute intracranial abnormality. 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 Small bilateral cerebral convexity subdural hygromas without significant mass effect upon adjacent structures. No acute cervical spine fracture. -------- FINAL REPORT -------- Dictated By: JOHN TONEY Dictated Date: 01/31/2025 11:49 ET Assigned Physician: JOHN TONEY Reviewed and Electronically Signed By: JOHN TONEY Signed Date: 01/31/2025 11:55 ET Workstation ID: [id number] Transcribed By: Self Edit Transcribed Date: 01/31/2025 11:49 ET Narrative 01/31/2025 11:55 AM EDT PROCEDURE: Head and cervical spine CT INDICATION: Fall, pain TECHNIQUE: Noncontrast CT of the head and cervical spine with multiplanar reformats. The examination was performed utilizing dose reduction techniques. Total DLP 1473. COMPARISON: None FINDINGS: Head CT: No acute territorial infarct, mass effect, or intracranial hemorrhage. 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 ??Small bilateral cerebral convexity subdural hygromas measuring 6 mm bilaterally. Diffuse cerebral volume loss with prominence of ventricles, sulci, and cisterns. ??No hydrocephalus. Visualized paranasal sinuses and mastoid air cells are clear. No scalp hematoma or skull fracture. ??Bilateral lens implants. Cervical spine CT: No acute fracture or prevertebral swelling. Cervical lordosis is preserved. Multilevel degenerative changes are seen throughout the cervical spine with uncovertebral spurring and facet arthropathy present. No pneumothorax at the lung apices. ??Inflammatory appearing opacities are noted at the left apex. ??Paraspinal muscles are within normal limits. ??Postsurgical changes seen in the right suboccipital region. ??Right upper paraesophageal lymph node is 11 mm short axis is nonspecific, and not well evaluated on this exam. Procedure Note John Toney MD - 01/31/2025 PROCEDURE: Head and cervical spine CT INDICATION: Fall, pain TECHNIQUE: Noncontrast CT of the head and cervical spine with multiplanarreformats. The examination was performed utilizing dose reductiontechniques. Total DLP 1473. COMPARISON: None FINDINGS: Head CT: No acute territorial infarct, mass effect, or intracranial hemorrhage. Right suboccipital craniotomy with underlying right cerebellar resectioncavity. Small bilateral cerebral convexity subdural hygromas measuring 6mm bilaterally. Diffuse cerebral volume loss with prominence of ventricles, sulci, andcisterns. No hydrocephalus. Visualized paranasal sinuses and mastoid air cells are clear. No scalp hematoma or skull fracture. Bilateral lens implants. Cervical spine CT: No acute fracture or prevertebral swelling. Cervical lordosis is preserved. Multilevel degenerative changes are seen throughout the cervical spinewith uncovertebral spurring and facet arthropathy present. No pneumothorax at the lung apices. Inflammatory appearing opacities arenoted at the left apex. Paraspinal muscles are within normal limits.Postsurgical changes seen in the right suboccipital region. Right upperparaesophageal lymph node is 11 mm short axis is nonspecific, and not wellevaluated on this exam. IMPRESSION: No acute intracranial abnormality. 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 Small bilateral cerebral convexity subdural hygromas without significantmass effect upon adjacent structures. No acute cervical spine fracture. -------- FINAL REPORT -------- Dictated By: JOHN TONEY Dictated Date: 01/31/2025 11:49 ET Assigned Physician: JOHN TONEY Reviewed and Electronically Signed By: JOHN TONEY Signed Date: 01/31/2025 11:55 ET Workstation ID: [id number] Transcribed By: Self Edit Transcribed Date: 01/31/2025 11:49 ET Alejandro Begum DO IMG CT PROCEDURES Final Result * CT Head wo Contrast (01/31/2025 11:36 AM EDT) Anatomical Region Laterality Modality Head and Neck Computed Tomogra phy 01/31/2025 11:5 5 AM EDT Impressions 01/31/2025 11:56 AM EDT No acute intracranial abnormality. 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 Small bilateral cerebral convexity subdural hygromas without significant mass effect upon adjacent structures. No acute cervical spine fracture. -------- FINAL REPORT -------- Dictated By: JOHN TONEY Dictated Date: 01/31/2025 11:55 ET Assigned Physician: JOHN TONEY Reviewed and Electronically Signed By: JOHN TONEY Signed Date: 01/31/2025 11:56 ET Workstation ID: [id number] Transcribed By: Self Edit Transcribed Date: 01/31/2025 11:55 ET Narrative 01/31/2025 11:56 AM EDT PROCEDURE: Head and cervical spine CT INDICATION: Fall, pain TECHNIQUE: Noncontrast CT of the head and cervical spine with multiplanar reformats. The examination was performed utilizing dose reduction techniques. Total DLP 1473. COMPARISON: None FINDINGS: Head CT: No acute territorial infarct, mass effect, or intracranial hemorrhage. 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 ??Small bilateral cerebral convexity subdural hygromas measuring 6 mm bilaterally. Diffuse cerebral volume loss with prominence of ventricles, sulci, and cisterns. ??No hydrocephalus. Visualized paranasal sinuses and mastoid air cells are clear. No scalp hematoma or skull fracture. ??Bilateral lens implants. Cervical spine CT: No acute fracture or prevertebral swelling. Cervical lordosis is preserved. Multilevel degenerative changes are seen throughout the cervical spine with uncovertebral spurring and facet arthropathy present. No pneumothorax at the lung apices. ??Inflammatory appearing opacities are noted at the left apex. ??Paraspinal muscles are within normal limits. ??Postsurgical changes seen in the right suboccipital region. ??Right upper paraesophageal lymph node is 11 mm short axis is nonspecific, and not well evaluated on this exam. Procedure Note John Toney MD - 01/31/2025 PROCEDURE: Head and cervical spine CT INDICATION: Fall, pain TECHNIQUE: Noncontrast CT of the head and cervical spine with multiplanarreformats. The examination was performed utilizing dose reductiontechniques. Total DLP 1473. COMPARISON: None FINDINGS: Head CT: No acute territorial infarct, mass effect, or intracranial hemorrhage. Right suboccipital craniotomy with underlying right cerebellar resectioncavity. Small bilateral cerebral convexity subdural hygromas measuring 6mm bilaterally. Diffuse cerebral volume loss with prominence of ventricles, sulci, andcisterns. No hydrocephalus. Visualized paranasal sinuses and mastoid air cells are clear. No scalp hematoma or skull fracture. Bilateral lens implants. Cervical spine CT: No acute fracture or prevertebral swelling. Cervical lordosis is preserved. Multilevel degenerative changes are seen throughout the cervical spinewith uncovertebral spurring and facet arthropathy present. No pneumothorax at the lung apices. Inflammatory appearing opacities arenoted at the left apex. Paraspinal muscles are within normal limits.Postsurgical changes seen in the right suboccipital region. Right upperparaesophageal lymph node is 11 mm short axis is nonspecific, and not wellevaluated on this exam. IMPRESSION: No acute intracranial abnormality. 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 Small bilateral cerebral convexity subdural hygromas without significantmass effect upon adjacent structures. No acute cervical spine fracture. -------- FINAL REPORT -------- Dictated By: JOHN TONEY Dictated Date: 01/31/2025 11:55 ET Assigned Physician: JOHN TONEY Reviewed and Electronically Signed By: JOHN TONEY Signed Date: 01/31/2025 11:56 ET Workstation ID: [id number] Transcribed By: Self Edit Transcribed Date: 01/31/2025 11:55 ET Alejandro Begum DO IMG CT PROCEDURES Final Result * Thyroid stimulating hormone with reflex to free t4 and free t3 (TSH Reflex) (01/31/2025 11:11 AM EDT) [facility] TSH 2.80 0.40 - 4.00 mcIU/mL LAB CHEMISTRY METHOD 02/01/2025 4:53 PM EDT [facility] Blood Venous blood specimen / Unknown Venipuncture / Unknown 01/31/2025 11:11 AM EDT 01/31/2025 11:47 AM EDT [facility] BLOOD ORDERABLES Final Re sult [facility] [address] [place] [address], [place] [phone] * (ABNORMAL) Vitamin B12 and folate (01/31/2025 11:11 AM EDT) Pathologist [facility] Vitamin B-12 189(L) 250 - 900 pcg/mL LAB CHEMISTRY METHOD 01/31/2025 2:13 PM EDT [facility] Folate 5.1 2.8 - 17.0 ng/ml LAB CHEMISTRY METHOD 01/31/2025 2:13 PM EDT [facility] Blood Venous blood specimen / Unknown Venipuncture / Unknown 01/31/2025 11:11 AM EDT 01/31/2025 11:47 AM EDT us [facility] LAB BLOOD ORDERABLES Final Re sult [facility] [address] [place] [address], [place] [phone] * (ABNORMAL) Procalcitonin (01/31/2025 11:11 AM EDT) Procalcitonin 0.23(H) <=0.16 ng/mL LAB CHEMISTRY METHOD 02/01/2025 8:34 AM EDT [facility] Blood Venous blood specimen / Unknown Venipuncture / Unknown 01/31/2025 11:11 AM EDT 01/31/2025 11:47 AM EDT Narrative [facility] - 02/01/2025 8:34 AM EDT Procalcitonin > 2.00 ng/ml: Procalcitonin Levels above 2.00 ng/ml, on the first day of ICU admission represent a high risk for progression to severe sepsis and/or septic shock. Procalcitonin < 0.50 ng/ml: Procalcitonin levels below 0.50 ng/ml on the first day of ICU admission represent a low risk for progression to severe sepsis and/or septic shock. Concentrations <0.5 ng/mL do not exclude an infection, on account of local ized infections (without systemic signs) which can be associated with such low concentrations, or a systemic infection in its initial stages (<6 hours). Furthermore, increased procalcitonin can occur without infection. PCT concentrations between 0.5 and 2.0 ng/mL should be interpreted taking into account the patient's history. It is recommended to retest PCT within 6-24 hours if any concentrations <2.0 ng/mL are obtained. Jay Castillo MD LAB BLOOD ORDERABLES Final Result Performing Organization Address [facility]/ZIP Co de Phone Number [facility] [address] [place] [address], * Prolactin (01/31/2025 11:11 AM EDT) Pathologist [facility] Prolactin 8.50 See Comment ng/mL LAB CHEMISTRY METHOD 01/31/2025 1:36 PM EDT [facility] Comment: Prolactin Reference Ranges (ng/mL) ??Non ?2.2 - ??30.3 ? 8.1 - 347.6 ??Postmenopausal 0.7 - ??31.5 Blood Venous blood specimen / Unknown Venipuncture / Unknown 01/31/2025 11:11 AM EDT 01/31/2025 11:47 AM EDT [facility] BLOOD ORDERABLES Final Re sult Performing Organization Address [facility] Co de Phone Number [facility] [address] [place] [address], * (ABNORMAL) C-reactive protein (01/31/2025 11:11 AM EDT) [facility] C-Reactive Protein 10.50(H) <=0.50 mg/dL LAB CHEMISTRY METHOD 01/31/2025 8:44 PM EDT [facility] Blood Venous blood specimen / Unknown Venipuncture / Unknown 01/31/2025 11:11 AM EDT 01/31/2025 11:47 AM EDT Jay Castillo MD LAB BLOOD ORDERABLES Final Result Performing Organization Address [facility]/ZIP Co de Phone Number [facility] [address] [place] [address], * (ABNORMAL) Hemoglobin A1c (01/31/2025 11:11 AM EDT) [facility] Hemoglobin A1C 9.7(H) <6.5 % LAB CHEMISTRY METHOD 01/31/2025 10:04 PM EDT [facility] Mean Bld Glu Estim. 232 mg/dL LAB CHEMISTRY METHOD 01/31/2025 10:04 PM EDT [facility] Blood Venous blood specimen / Unknown Venipuncture / Unknown 01/31/2025 11:11 AM EDT 01/31/2025 11:47 AM EDT us Jay Castillo MD LAB BLOOD ORDERABLES Final Result Performing Organization Address [facility]/ZIP Co de Phone Number [facility] [address] [place] [address], [place] [phone] * (ABNORMAL) CK total and CKMB (01/31/2025 11:11 AM EDT) [facility] Total CK 22 22 - 269 unit/L LAB CHEMISTRY METHOD 01/31/2025 12:35 PM EDT [facility] CK-MB <1.0(L) 1.0 - 3.6 ng/mL LAB CHEMISTRY METHOD 01/31/2025 12:35 PM EDT [facility] CK-MB Index <0.0(L) 0.0 - 5.0 LAB CHEMISTRY METHOD 01/31/2025 12:35 PM EDT [facility] Blood Venous blood specimen / Unknown Venipuncture / Unknown 01/31/2025 11:11 AM EDT 01/31/2025 11:47 AM EDT us Xavier Hooper MD LAB BLOOD ORDERABLES Final Resu lt Performing Organization Address [facility]/ZIP Co de Phone Number [facility] [address] [place] [address], [place] [phone] * (ABNORMAL) Hepatic function panel (01/31/2025 11:11 AM EDT) [facility] Total Protein 5.9(L) 6.0 - 8.0 g/dL LAB CHEMISTRY METHOD 01/31/2025 2:38 PM T [facility] Albumin 2.2(L) 3.2 - 5.0 g/dL LAB CHEMISTRY METHOD 01/31/2025 2:38 PM T [facility] Total Bilirubin 0.5 0.0 - 1.4 mg/dL LAB CHEMISTRY METHOD 01/31/2025 2:38 PM [facility] Bilirubin, Direct 0.1 0.0 - 0.3 mg/dL LAB CHEMISTRY METHOD 01/31/2025 2:38 PM [facility] Bilirubin, Indirect 0.4 0.0 - 1.1 mg/dL LAB CHEMISTRY METHOD 01/31/2025 2:38 PM [facility] ALT (SGPT) 11 10 - 60 unit/L LAB CHEMISTRY METHOD 01/31/2025 2:38 PM [facility] AST (SGOT) 7(L) 10 - 42 unit/L LAB CHEMISTRY METHOD 01/31/2025 2:38 PM [facility] Alkaline Phosphatase 98 42 - 121 unit/L LAB CHEMISTRY METHOD 01/31/2025 2:38 PM [facility] Blood Venous blood specimen / Unknown Venipuncture / Unknown 01/31/2025 11:11 AM EDT 01/31/2025 11:47 AM EDT us [facility] LAB BLOOD ORDERABLES Final Re sult [facility] [address] [place] [address], [place] [phone] * (ABNORMAL) Comprehensive metabolic panel (12/08/2024 7:14 AM EST) Sodium 139 133 - 145 mmol/L LAB CHEMISTRY METHOD 12/08/2024 10:48 AM [facility] Potassium 4.0 3.5 - 5.5 mmol/L LAB CHEMISTRY METHOD 12/08/2024 10:48 AM [facility] Chloride 108 96 - 110 mmol/L LAB CHEMISTRY METHOD 12/08/2024 10:48 AM [facility] CO2 24 21 - 32 mmol/L LAB CHEMISTRY METHOD 12/08/2024 10:48 AM [facility] Anion Gap 7 3 - 11 LAB CHEMISTRY METHOD 12/08/2024 10:48 AM [facility] Glucose 153(H) 70 - 100 mg/dL LAB CHEMISTRY METHOD 12/08/2024 10:48 AM [facility] BUN 39(H) 5 - 25 mg/dL LAB CHEMISTRY METHOD 12/08/2024 10:48 AM [facility] Creatinine 1.25(H) 0.50 - 1.10 mg/dL LAB CHEMISTRY METHOD 12/08/2024 10:48 AM [facility] eGFR 44(L) >=60 mL/min/1. 73m2 LAB CHEMISTRY METHOD 12/08/2024 10:48 AM [facility] Comment:Calculation based on the??Chronic Kidney Disease Epidemiology Collaboration (CKD-EPI) equation refit??without adjustment for race. BUN/Creatinine Ratio 31.2 LAB CHEMISTRY METHOD 12/08/2024 10:48 AM [facility] Calcium 7.8(L) 8.5 - 10.5 mg/dL LAB CHEMISTRY METHOD 12/08/2024 10:48 AM [facility] AST (SGOT) 17 10 - 42 unit/L LAB CHEMISTRY METHOD 12/08/2024 10:48 AM [facility] ALT (SGPT) 22 10 - 60 unit/L LAB CHEMISTRY METHOD 12/08/2024 10:48 AM [facility] Alkaline Phosphatase 89 42 - 121 unit/L LAB CHEMISTRY METHOD 12/08/2024 10:48 AM EST [facility] Total Protein 5.0(L) 6.0 - 8.0 g/dL LAB CHEMISTRY METHOD 12/08/2024 10:48 AM EST [facility] Albumin 2.1(L) 3.2 - 5.0 g/dL LAB CHEMISTRY METHOD 12/08/2024 10:48 AM EST [facility] Total Bilirubin 0.3 0.0 - 1.4 mg/dL LAB CHEMISTRY METHOD 12/08/2024 10:48 AM EST [facility] Blood Venous blood specimen / Unknown Venipuncture / Unknown 12/08/2024 7:14 AM EST 12/08/2024 9:29 AM EST Christopher Rutledge MD LAB BLOOD ORDERABLES Final Res ult [facility] [address] [place] [address], [place] [phone] from Last 3 Months Insurance [place]ICA[place]ICARE Advance Directives Documents on File Type Date Recorded 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 Do not modify or discontinue any currently active code status orders. Healthcare Agents on File Name Relationship Healthcare Agent [facility] Communication [facility]id[facility] Agent Care Teams [place] Supervisor Relationship Specialty Start Date End Date Physician, Pcp Unknown PCP - General 01/31/25
--- OUTSIDE RECORDS SUMMARY | 2025-02-12 06:15 | XMS_ITS | Encounter Summary ---
Author Organization [facility] Address [address] [place] [address] Care Team Providers Care Bill Hiker Name Role Phone Physician, Pcp Unknown Primary Care Provider Pauly vailable Encounter Details Date Type Department Care Team (Late st Contact Info) Description 12/08/2024 Lab Requisition [facility] Lab [address] [facility] [email or web address] [address] Christopher Rutledge MD [address] [place] [id number] Encounter for other general examination Social History [...] Description 05/14/2025 9:45 AM EDT Office Visit [facility] Hematology Oncology [address] [place] [address] Coleman Faye MD [address] [place] [address] documented as of this encounter [...] K/mcL LAB HEMETOLOGY METHOD 12/08/2024 10:23 AM [facility] RBC 3.60(L) 3.80 - 4.80 M/mcL LAB HEMETOLOGY METHOD 12/08/2024 10:23 AM [facility] Hemoglobin 10.8(L) 11.5 - 16.0 g/dL LAB HEMETOLOGY METHOD 12/08/2024 10:23 AM [facility] LAB Hematocrit 34.0(L) 35.0 - 47.0 % LAB HEMETOLOGY METHOD 12/08/2024 10:23 AM [facility] MCV 95.2 79.0 - 98.0 FL LAB HEMETOLOGY METHOD 12/08/2024 10:23 AM [facility] LAB MCH 30.3 27.0 - 32.0 pcg LAB HEMETOLOGY METHOD 12/08/2024 10:23 AM [facility] LAB MCHC 31.8(L) 32.0 - 37.0 g/dL LAB HEMETOLOGY METHOD 12/08/2024 10:23 AM [facility] RDW 14.6 11.0 - 15.0 % LAB HEMETOLOGY METHOD 12/08/2024 10:23 AM [facility] Platelets 182 130 - 400 K/mcL LAB HEMETOLOGY METHOD 12/08/2024 10:23 AM [facility] MPV 10.9 7.0 - 11.0 FL LAB HEMETOLOGY METHOD 12/08/2024 10:23 AM [facility] NRBC 0.0 <1.0 % LAB HEMETOLOGY METHOD 12/08/2024 10:23 AM [facility] LAB NRBC Absolute 0.00 <0.10 K/mcL LAB HEMETOLOGY METHOD 12/08/2024 10:23 AM [facility] Neutrophils Relative 83.0 % LAB HEMETOLOGY METHOD 12/08/2024 10:23 AM [facility] Lymphocytes Relative 7.1 % LAB HEMETOLOGY METHOD 12/08/2024 10:23 AM [facility] Monocytes Relative 7.5 % LAB HEMETOLOGY METHOD 12/08/2024 10:23 AM [facility] Eosinophils Relative 0.0 % LAB HEMETOLOGY METHOD 12/08/2024 10:23 AM [facility] Basophils Relative 0.4 % LAB HEMETOLOGY METHOD 12/08/2024 10:23 AM [facility] Immature Granulocytes Relative 2.0 % LAB HEMETOLOGY METHOD 12/08/2024 10:23 AM [facility] Neutrophils Absolute 6.98 1.50 - 7.00 K/mcL LAB HEMETOLOGY METHOD 12/08/2024 10:23 AM [facility] Lymphocytes Absolute 0.60(L) 1.00 - 5.00 K/mcL LAB HEMETOLOGY METHOD 12/08/2024 10:23 AM [facility] Monocytes Absolute 0.63 0.20 - 1.00 K/mcL LAB HEMETOLOGY METHOD 12/08/2024 10:23 AM [facility] Eosinophils Absolute 0.00 0.00 - 0.50 K/mcL LAB HEMETOLOGY METHOD 12/08/2024 10:23 AM EST [facility] Basophils Absolute 0.03 0.00 - 0.20 K/[facility] LAB HEMETOLOGY METHOD 12/08/2024 10:23 AM EST [facility] Immature Granulocytes Absolute 0.17(H) 0.00 - 0.03 K/[facility] LAB HEMETOLOGY METHOD 12/08/2024 10:23 AM EST [facility] Blood Venous blood specimen / Unknown Venipuncture / Unknown 12/08/2024 7:14 AM EST 12/08/2024 9:29 AM EST Christopher Rtuledge MD LAB BLOOD ORDERABLES Final Res ult Performing Organization Address [facility]/ZIP Co de Phone Number [facility] [address] [place] [address], [place] [phone] * Magnesium (12/08/2024 7:14 AM EST) Magnesium 2.3 1.9 - 2.6 mg/dL LAB CHEMISTRY METHOD 12/08/2024 10:46 AM EST [facility] Blood Venous blood specimen / Unknown Venipuncture / Unknown 12/08/2024 7:14 AM EST 12/08/2024 9:29 AM EST Christopher Rutledge MD LAB BLOOD ORDERABLES Final Res ult Performing Organization Address City/[facility]/ZIP Co de Phone Number [facility] [address] [place] [address], [place] [phone] * (ABNORMAL) Comprehensive metabolic panel (12/08/2024 7:14 AM EST) Sodium 139 133 - 145 mmol/L LAB CHEMISTRY METHOD 12/08/2024 10:48 AM EST [facility] Potassium 4.0 3.5 - 5.5 mmol/L LAB CHEMISTRY METHOD 12/08/2024 10:48 AM [facility] Chloride 108 96 - 110 mmol/L LAB CHEMISTRY METHOD 12/08/2024 10:48 AM [facility] CO2 24 21 - 32 mmol/L LAB CHEMISTRY METHOD 12/08/2024 10:48 AM [facility] Anion Gap 7 3 - 11 LAB CHEMISTRY METHOD 12/08/2024 10:48 AM [facility] Glucose 153(H) 70 - 100 mg/dL LAB CHEMISTRY METHOD 12/08/2024 10:48 AM [facility] BUN 39(H) 5 - 25 mg/dL LAB CHEMISTRY METHOD 12/08/2024 10:48 AM [facility] Creatinine 1.25(H) 0.50 - 1.10 mg/dL LAB CHEMISTRY METHOD 12/08/2024 10:48 AM [facility] eGFR 44(L) >=60 mL/min/1. 73m2 LAB CHEMISTRY METHOD 12/08/2024 10:48 AM [facility] Comment:Calculation based on the??Chronic Kidney Disease Epidemiology Collaboration (CKD-EPI) equation refit??without adjustment for race. BUN/Creatinine Ratio 31.2 LAB CHEMISTRY METHOD 12/08/2024 10:48 AM [facility] Calcium 7.8(L) 8.5 - 10.5 mg/dL LAB CHEMISTRY METHOD 12/08/2024 10:48 AM [facility] AST (SGOT) 17 10 - 42 unit/L LAB CHEMISTRY METHOD 12/08/2024 10:48 AM [facility] ALT (SGPT) 22 10 - 60 unit/L LAB CHEMISTRY METHOD 12/08/2024 10:48 AM [facility] Alkaline Phosphatase 89 42 - 121 unit/L LAB CHEMISTRY METHOD 12/08/2024 10:48 AM [facility] Total Protein 5.0(L) 6.0 - 8.0 g/dL LAB CHEMISTRY METHOD 12/08/2024 10:48 AM EST [facility] Albumin 2.1(L) 3.2 - 5.0 g/dL LAB CHEMISTRY METHOD 12/08/2024 10:48 AM EST [facility] Total Bilirubin 0.3 0.0 - 1.4 mg/dL LAB CHEMISTRY METHOD 12/08/2024 10:48 AM EST [facility] Blood Venous blood specimen / Unknown Venipuncture / Unknown 12/08/2024 7:14 AM EST 12/08/2024 9:29 AM EST us Christopher Rutledge MD LAB BLOOD ORDERABLES Final Res ult [facility] [address] [place] [address], documented in this encounter Visit Diagnoses Diagnosis Encounter for other general examination documented in this encounter Additional Health Concerns Infection Onset Date Last Indicated Resolved Time Respiratory Rule-Out 01/31/2025 01/31/2025 025 7:39 PM EDT COVID-19 Rule-Out 01/31/2025 01/31/2025 01/31/2025 7:39 PM EDT documented as of this encounter Care Teams Bill Hiker Relationship Specialty Start Date End Date Physician, Pcp Unknown PCP - General 01/31/25 documented as of this encounter
--- OUTSIDE RECORDS SUMMARY | 2025-02-12 06:15 | XMS_ITS | Encounter Summary ---
[facility] Organization [facility] Address [id number] [place] [phone] Care Team Providers Care Store Stock Help Name Role Phone Physician, Pcp Unknown Primary Care Provider Pauly vailable Reason for Visit * Reason Comments Fall * Auth/Cert (Routine) Specialty Diagnoses / Procedures Referred By Contac t Referred To Contact Diagnoses Syncope and collapse Procedures [id number] [facility] [id number] [place] [phone] [facility] Emergency [address] [place] [address] Phone: tel: Referral ID Status Reason Start Date Expiration Date Visits Re quested Visits Authorized [id number] 1 1 Encounter Details Date Type Department Care Team (Latest Contact Info) Description 01/31/2025 10:56 AM EDT - 02/07/2025 3:00 PM EDT Hospital Encounter [facility] Medical Surgical Unit [address] [place] [phone] Xavier Hooper MD [address] [place] [phone] Jay Castillo MD [address] [place], [place] [phone] Antonia Chapin MD [address] [place] [address] Elda Mahmood MD [address] [place] [phone] Syncope and collapse (Primary Dx); Acute hypoxic respiratory failure (CMS/[facility] V24, CMS/[facility] V28); Urinary tract infection without hematuria, site unspecified Discharge Disposition: [facility] Social History Tobacco Use Types Packs/Day Years [...] PM EDT documented as of this encounter Last Filed Vital Signs Vital Sign Reading [...] Mass Index 27.3 02/02/2025 7:45 AM EDT documented in this encounter Functional Status * Are you deaf or do you have serious difficulty hearing? Answer Date of Assessment Author No 01/31/2025 12:08 PM EDT Shawnee Ladd, MAURO * Are you blind or do you have serious difficulty seeing, even when wearing glasses? Answer Date of Assessment Author No 01/31/2025 12:08 PM EDT Shawnee Ladd, RN * Do you have serious difficulty walking or climbing stairs? Answer Date of Assessment Author No 01/31/2025 12:08 PM EDT Shawnee Ladd, RN * Do you have serious difficulty dressing or bathing? Answer Date of Assessment Author No 01/31/2025 12:08 PM EDT Shawnee Ladd RN * Because of a physical, mental, or emotional condition, do you have serious difficulty doing errandsalone such as visiting the doctor? Answer Date of Assessment Author No 01/31/2025 12:08 PM EDT Shawnee Ladd RN documented as of this encounter Mental Status * Because of a physical, mental, or emotional condition, do you have serious difficulty concentrating, remembering, or making decisions? (5 years old or older) Answer Entry Date Author No 01/31/2025 12:08 PM EDT Shawnee Ladd RN documented in this encounter Discharge Summaries * Elda Mahmood MD - 02/07/2025 12:30 PM EDT Images from the original note were not included. NORA DISCHARGE SUMMARY Patient Information Anjana Wallace : 1945 [79 y.o.] Admitting Provider Xavier Hooper MD Discharge Provider Elda Mahmood MD, Elda Mahmood MD Primary Care Physician Pcp Unknown Physician Admission Date 01/31/2025 Discharge Date 02/07/2025 Summary of Hospital Problems Presenting Chief Complaint: Unwitnessed fall Primary Discharge Diagnosis: Syncope and collapse Severe sepsis on admission with organ dysfunction Urinary tract infection Acute respiratory failure with hypoxia improved Acute on chronic heart failure, HFrEF Demand ischemia Hypertension Anemia of chronic disease JP on CKD Secondary Discharge Diagnosis: Diabetes mellitus type 2 Hyperlipidemia History of lung cancer with mets status post left upper lobectomy, radiation and chemo Brain mass with hydrocephalus, status post right suboccipital craniotomy Discharge Destination: Rehab Code Status at Discharge: Full Code - Default [facility] Summary 79-year-old female with PMH of lung cancer s/p left upper lobectomy 2019 s/p chemotherapy and radiation, recently seen by neurology at [facility] for new brain mass s/p right suboccipital craniotomy on 12/03/2024, NIDDM, HFrEF, CKD, and hyperlipidemia presents to the ED after being found on the ground, unwitnessed fall. Severe sepsis on admission with organ dysfunction Acute respiratory failure with hypoxia on admission ?community-acquired pneumonia UTI with E. coli Patient initially on admission was febrile with tachycardia and hypoxic. She was placed on oxygen and was given IV fluids and albumin. She was initially started on ceftriaxone and azithromycin, given immunocompromise state was switched to IV Zosyn and vancomycin. Urine cultures came back for E. coli, was switched to IV ceftriaxone. Patient finished course of treatment for UTI. Blood cultures have been negative. Respiratory viral panel is negative. No other evidence of acute infection. Overall clinically improving. Does not require further antibiotics at this time. Syncope and collapse likely in the setting of infection and dehydration and sepsis. Acute on chronic heart failure with reduced ejection fraction. Flash pulmonary edema History of HFrEF Patient was initially given IV fluids for sepsis, then went into flash pulmonary edema. Chest x-ray done showing right-sided pulmonary vascular congestion. Fluids discontinued and placed on Lasix with good diuresis. Currently switched to p.o. Lasix 40 mg twice daily for now. Also has been on Entresto and spironolactone both have been held due to the JP. Creatinine slowly improving and is at 1.76, if continues to trend down, improve then consider starting back on spironolactone 12.5 mg first and then if continues to remain stable start also back on the Entresto low-dose. Was on high flow, is currently on nasal cannula 2 L. Elevated troponins likely from demand ischemia, CHF Patient denies any chest pain. Echo done showed reduced systolic function and ejection fraction of 40 to 45%. Hypokinesis of the basal to mid inferior wall and inferoseptal kelley. Grade 2 LV diastolic dysfunction. No significant valvular disease. When compared to the report done in November 2024 LVEF has improved. Continue with Lasix. Patient on Toprol. Entresto and spironolactone held at this time because increased creatinine. Consider restarting spironolactone first low-dose and then Entresto slowly if renal function stableand improving Started on Hydralazine per cards for afterload reduction History of lung cancer with metastasis follows by Dr. Faye status post left upper lobectomy and mediastinal lymphadenectomy [id number] treated with radiation and chemotherapy On 11/30/2024 patient was found to have brain mass with hydrocephalus with effacement of fourth ventricle and underwent right suboccipital craniotomy on 12/03/2024 Anemia likely chronic disease continue to monitor no signs of blood loss at this time. Transfuse ifhemoglobin less than 7 Hemoglobin 6.1 on 02/03/2025. Was transfused 2 units of blood and her hemoglobin has remained stable JP on CKD initially likely because of sepsis Patient because of JP was prerenal Later most likely because of hypervolemia Creatinine improving down to 1.76. Resumed back on Lasix 40 mg twice daily for now. Type 2 diabetes will start back on glipizide and Lantus. Monitor POC and if continues to be high, start on sliding scale at the facility. Hyperlipidemia on statins PT saw pt recommending rehab Full Code Patient overall has been improving, was discussed with the family, brother updated during the hospital course. Plan to discharge to rehab facility today Follow-Up Instructions and Recommendations [address] [place] [phone] No discharge procedures on file. Discharge Medications Your medication list START taking these medications Instructions Last Dose Given Next Dose Due benzonatate 100 mg capsule Commonly known as: TESSALON Take 1 capsule (100 mg total) by mouth 3 (three) times a day if needed for cough for up to 7 days. Do not crush or chew. hydrALAZINE 10 mg tablet Commonly known as: APRESOLINE Take 1 tablet (10 mg total) by mouth 2 (two) times a day. CHANGE how you take these medications Instructions Last Dose Given Next Dose Due furosemide 40 mg tablet Commonly known as: LASIX What changed: medication strength See the new instructions. Take 1 tablet (40 mg total) by mouth 2 (two) times daily morning and afternoon. metoprolol tartrate 25 mg tablet Commonly known as: LOPRESSOR What changed: how much to take Take 2 tablets (50 mg total) by mouth 2 (two) times a day. CONTINUE taking these medications Instructions Last Dose Given Next Dose Due aspirin 81 mg EC tablet Take 1 tablet (81 mg total) by mouth 1 (one) time each day. atorvastatin 40 mg tablet Commonly known as: LIPITOR Take 1 tablet (40 mg total) by mouth 1 (one) time each day. dulaglutide 0.75 mg/0.5 mL pen injector injection Commonly known as: TRULICITY Inject under the skin. gabapentin 100 mg capsule Commonly known as: NEURONTIN Take 1 capsule (100 mg total) by mouth 3 (three) times a day. glipiZIDE 5 mg tablet Commonly known as: GLUCOTROL Take 1 tablet (5 mg total) by mouth 2 (two) times a day before breakfast and dinner. insulin glargine 100 unit/mL (3 mL) injection pen Commonly known as: LANTUS SoloStar Inject 12 Units under the skin at bedtime. isosorbide mononitrate 30 mg 24 hr tablet Commonly known as: IMDUR Take 1 tablet (30 mg total) by mouth daily. STOP taking these medications sacubitriL-valsartan 24-26 mg per tablet Commonly known as: ENTRESTO spironolactone 25 mg tablet Commonly known as: ALDACTONE Where to Get Your Medications Information about where to get these medications is not yet available Ask your nurse or doctor about these medications benzonatate 100 mg capsule furosemide 40 mg tablet hydrALAZINE 10 mg tablet metoprolol tartrate 25 mg tablet Physical Exam at time of Discharge Physical Exam Elderly pleasant female not in any acute distress HEENT PERRLA, EOMI Neck supple Chest no accessory muscle slightly diminished at the bases no added sounds heard at this time. Heart S1-S2 regular no murmurs appreciated Abdomen soft nontender bowel sounds present [employer] awake alert oriented x 3 no gross focal neurological deficits Vitals Visit Vitals BP 135/71 (BP Location: Left arm, Patient Position: Lying) Pulse 68 Temp 36.3 ??C (97.4 ??F) (Temporal) Resp 18 Temp (24hrs), Av.1 ??C (97 ??F), Min:35.7 ??C (96.3 ??F), Max:36.3 ??C (97.4 ??F) Body mass index is 27.3 kg/m??. No results found for: PTWT , PTHT Results from last 7 days Lab Units 02/07/25 1137 02/07/25 0755 02/07/25 0607 02/06/25 0745 02/06/25 0552 02/05/25 0805 02/05/25 0558 SODIUM mmol/L -- -- 138 -- 135 -- 136 POTASSIUM mmol/L -- -- 4.1 -- 3.7 -- 4.1 CHLORIDE mmol/L -- -- 105 -- 105 -- 106 CO2 mmol/L -- -- 22 -- 23 -- 24 BUN mg/dL -- -- 25 -- 27* -- 26* CREATININE mg/dL -- -- 1.61* -- 2.09* -- 1.95* POCT GLUCOSE mg/dL 243* < > -- < > -- < > -- GLUCOSE mg/dL -- -- 147* -- 87 -- 116* CALCIUM mg/dL -- -- 8.2* -- 8.3* -- 8.3* < > = values in this interval not displayed. Results from last 7 days Lab Units 02/07/25 0607 02/06/25 0552 02/05/25 0558 WBC AUTO K/mcL 7.3 7.3 7.7 HEMOGLOBIN g/dL 10.5* 10.5* 10.1* HEMATOCRIT % 33.7* 33.6* 32.5* PLATELETS K/mcL 355 346 329 01/31/25 TRANSTHORACIC ECHOCARDIOGRAM (TTE) COMPLETE (CONTRAST/BUBBLE/3D PRN) 02/02/2025 02/02/2025 Interpretation Summary Left ventricle cavity size is normal. There is normal left ventricular wall thickness. There is mild to moderate, segmental LV systolic dysfunction. There is hypokinesis of the basal to mid inferior and inferoseptal kelley. Ejection fraction estimated at 40 to 45%. There is Grade II (moderate) diastolic dysfunction consistent with increased left atrial pressure. There is normal pulmonary artery systolic pressure. Right ventricle cavity is normal. Right ventricular systolic function is normal. There is no hemodynamically significant valve disease. Mild valvular abnormalities as below. No priors that I can see in our system for comparison. However, compared to echo report from [facility] from November 2024, EF is actually improved. No prior echocardiograms in our system for comparison. Secure text sent to Dr. Chapin. Signed by: Lory Retana MD on 02/02/2025 11:27 AM XR Chest 1 View Final Result Decreased interstitial prominence suspected to represent improving interstitial edema. -------- FINAL REPORT -------- Dictated By: Uziel Kaplan Dictated Date: 02/03/2025 11:34 ET Assigned Physician: Uziel Kaplan Reviewed and Electronically Signed By: Uziel Kaplan Signed Date: 02/03/2025 11:35 ET Workstation ID: [id number] Transcribed By: Self Edit Transcribed Date: 02/03/2025 11:34 ET Transthoracic echocardiogram (TTE) complete with PRN contrast, bubble, strain, and 3D order panel Final Result XR Chest 1 View Final Result FINDINGS/IMPRESSION: Worsening diffuse opacities of right greater than left lungs presumably representing moderate congestive heart failure. Stable cardiomediastinal contours and the left lung postsurgical changes with suprahilar/upper lobe scarring. -------- FINAL REPORT -------- Dictated By: Trung Toure Dictated Date: 02/01/2025 15:10 ET Assigned Physician: Trung Toure Reviewed and Electronically Signed By: Trung Toure Signed Date: 02/01/2025 15:11 ET Workstation ID: [id number] Transcribed By: Self Edit Transcribed Date: 02/01/2025 15:[address] Angio Chest wo and/or w Contrast Final Result No pulmonary embolus. Opacities of the left lung concerning for infection. CT chest follow-up is recommended to confirm resolution and exclude pulmonary nodule or mass. Small left pleural effusion. Mildly enlarged subcarinal lymph node. This document has been electronically signed by: Frederick Garcia MD on 01/31/2025 18:10:20 CT Abdomen Pelvis w Contrast Final Result No evidence of acute traumatic injury in the abdomen and pelvis. Indeterminate left adrenal nodule. Additional findings as above. This document has been electronically signed by: Frederick Garcia MD on 01/31/2025 18:13:19 XR Chest 2 Views Final Result FINDINGS/IMPRESSION: Postsurgical changes left lung with new linear left upper lobe opacity could represent scarring, atelectasis or infiltrate. Stable cardiomediastinal contours. No congestive heart failure. Degenerative osseous changes. -------- FINAL REPORT -------- Dictated By: Trung Toure Dictated Date: 01/31/2025 14:53 ET Assigned Physician: Trung Toure Reviewed and Electronically Signed By: Trung Toure Signed Date: 01/31/2025 14:53 ET Workstation ID: [id number] Transcribed By: Self Edit Transcribed Date: 01/31/2025 14:[address] Cervical Spine wo Contrast Final Result No acute intracranial abnormality. 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 Small bilateral cerebral convexity subdural hygromas without significant mass effect upon adjacent structures. No acute cervical spine fracture. -------- FINAL REPORT -------- Dictated By: ANAIS TONEY Dictated Date: 01/31/2025 11:49 ET Assigned Physician: ANAIS TONEY Reviewed and Electronically Signed By: ANAIS TONEY Signed Date: 01/31/2025 11:55 ET Workstation ID: [id number] Transcribed By: Self Edit Transcribed Date: 01/31/2025 11:[address] Head wo Contrast Final Result No acute intracranial abnormality. 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 Small bilateral cerebral convexity subdural hygromas without significant mass effect upon adjacent structures. No acute cervical spine fracture. -------- FINAL REPORT -------- Dictated By: ANAIS TONEY Dictated Date: 01/31/2025 11:55 ET Assigned Physician: ANAIS TONEY Reviewed and Electronically Signed By: ANAIS TONEY Signed Date: 01/31/2025 11:56 ET Workstation ID: [id number] Transcribed By: Self Edit Transcribed Date: 01/31/2025 11:55 ET Total time spent 45 minutes doing chart review, seeing patient performing physical exam, formulating plan, coordinating with RN, [facility] for discharge, and documentation * Elda Mahmood MD - 02/07/2025 12:27 PM EDT Cardiac diet * Elda Mahmood MD - 02/07/2025 12:27 PM EDT As tolerated documented in this encounter Discharge Instructions * Discharge Instructions* Elda Mahmood MD - 02/07/2025 12:28 PM EDT Check bmp in 2 days and if renal functions better - start back on spironolactone and slwoly start back on entresto as well documented in this encounter Medications at Time of Discharge aspirin 81 mg EC tablet Take 1 tablet (81 mg total) by mouth 1 (one) time each day. atorvastatin (LIPITOR) 40 mg tablet Take 1 tablet (40 mg total) by mouth 1 (one) time each day. benzonatate (TESSALON) 100 mg capsule Take 1 capsule (100 mg total) by mouth 3 (three) times a day if needed for cough for up to 7 days. Do not crush or chew. 02/07/2025 5 dulaglutide (TRULICITY) 0.75 mg/0.5 mL pen injector injection Inject under the skin. furosemide (LASIX) 40 mg tablet Take 1 tablet (40 mg total) by mouth 2 (two) times daily morning and afternoon. 02/07/2025 6 gabapentin (NEURONTIN) 100 mg capsule Take 1 capsule (100 mg total) by mouth 3 (three) times a day. glipiZIDE (GLUCOTROL) 5 mg tablet Take 1 tablet (5 mg total) by mouth 2 (two) times a day before breakfast and dinner. hydrALAZINE (APRESOLINE) 10 mg tablet Take 1 tablet (10 mg total) by mouth 2 (two) times a day. 02/07/2025 5 insulin glargine (LANTUS SoloStar) 100 unit/mL (3 mL) injection pen Inject 12 Units under the skin at bedtime. 12/07/2024 isosorbide mononitrate (IMDUR) 30 mg 24 hr tablet Take 1 tablet (30 mg total) by mouth daily. metoprolol tartrate (LOPRESSOR) 25 mg tablet Take 2 tablets (50 mg total) by mouth 2 (two) times a day. 02/07/2025 6 documented as of this encounter Ordered Prescriptions Prescription Sig Dispense Quantity Refills Last Filled Start Date End Date hydrALAZINE (APRESOLINE) 10 mg tablet Take 1 tablet (10 mg total) by mouth 2 (two) times a day. 02/07/2025 5 furosemide (LASIX) 40 mg tablet Take 1 tablet (40 mg total) by mouth 2 (two) times daily morning and afternoon. 02/07/2025 6 benzonatate (TESSALON) 100 mg capsule Take 1 capsule (100 mg total) by mouth 3 (three) times a day if needed for cough for up to 7 days. Do not crush or chew. 02/07/2025 5 metoprolol tartrate (LOPRESSOR) 25 mg tablet Take 2 tablets (50 mg total) by mouth 2 (two) times a day. 02/07/2025 6 documented in this encounter Discharge Disposition Disposition Code Departure Means Destination Comment s [facility] documented in this encounter Progress Notes * Shannen Madrigal RN - 02/07/2025 2:21 PM EDT 02/07/25 1420 Transportation Transportation at discharge [facility] providing transportation [place] What day is the transport expected? 02/07/25 What time is the transport expected? 1500 Final Discharge Disposition [facility] spoke with pt at bedside and reviewed bed offers, pt agreed to bed offer at [facility]. [facility] confirmed acceptance with facility and transport booked for 1500 today. [facility] attempted to contact pts' brother Davian schulz VM was left, pt aware and reported she spoke with her brother and notified him * Amanda Rowley, PT - 02/07/2025 10:53 AM EDT [facility] Physical Therapy Treatment PT Discharge Recommendations: [facility] facility placement Staff Recommendations for safe patient handlin person Alex with wwalker Precautions Medical Precautions: Fall Risk Safety Interventions: Call james within reach, ID band on, Bed alarm RUE Weight Bearing Status: Full LUE Weight Bearing Status: Full RLE Weight Bearing Status: Full LLE Weight Bearing Status: Full History of Present Illness: Patient is a 79 y.o. female admitted to [facility] on 01/31/2025 with: Patient Active Problem List Diagnosis Primary adenocarcinoma of upper lobe of left lung (CMS/HCC V24, CMS/HCC V28) Metastasis to brain (CMS/HCC V24, CMS/HCC V28) Syncope and collapse Fall prevention education provided including use of call light in hospital, use of appropriate assistive device, safe mobility techniques, and safety measures at home. Continue PT as per POC. Subjective iIm ok I dont have to use the bathroom Objective 02/07/25 0830 PT Last Visit PT Received On 02/07/25 PT Time Calculation PT Start Time 0830 PT Stop Time 0900 PT Time Calculation (min) 30 min Precautions Medical Precautions Fall Risk Safety Interventions Call james within reach;ID band on;Bed alarm RUE Weight Bearing Status Full LUE Weight Bearing Status Full RLE Weight Bearing Status Full LLE Weight Bearing Status Full Vital Signs Patient Identification Yes Oxygen Therapy Oxygen Therapy Supplemental oxygen O2 Delivery Method Nasal cannula O2 Flow Rate (L/min) 2 L/min Activity Tolerance Endurance Tolerates 10 - 20 min exercise with multiple rests Static Sitting Balance Static Sitting-Level of Assistance Standby assistance Static Standing Balance Static Standing-Level of Assistance Contact guard Bed Mobility Rolling Right Assistance Minimum assistance Sitting to Lying Assistance Minimum assistance Transfers Sit to Stand Assistance Minimum assistance Bed to/from Chair Transfer Technique Ambulating Ambulation Walking Assistance Minimum assistance Device Rolling walker Distance Ambulated (ft) 40 Comments dizzy with mvmt , SOB with exertion RUE Assessment RUE Assessment Within Functional Limits LUE Assessment LUE Assessment Within Functional Limits RLE Assessment RLE Assessment Within Functional Limits LLE Assessment LLE Assessment Within Functional Limits Procedures Procedures Gait Training;Therapeutic Activity Gait Training Gait Training Time Entry 15 Therapeutic Activity Therapeutic Activity Time Entry 15 PT Assessment PT Assessment Results Decreased strength;Decreased range of motion;Decreased endurance;Impaired gait;Impaired balance;Decreased coordination;Decreased mobility Prognosis Good Evaluation/Treatment Tolerance Patient limited by fatigue Medical Staff Made Aware Yes Plan Treatment/Interventions Functional transfer training;LE strengthening/ROM;Bed mobility;Gait training PT Plan Skilled PT PT Frequency 2-5 days per week PT Treatments per day 1 time per day PT Discharge Recommendations [facility] facility placement Procedure/Treatment: Procedures Procedures: Gait Training, Therapeutic Activity Gait Training Gait Training Time Entry: 15 Therapeutic Activity Therapeutic Activity Time Entry: 15 Patient left sitting up in chair. RN notified of pt. status, location, response to treatment, and therapy recommendations. Physical Therapy Assessment/Plan PT Assessment PT Assessment Results: Decreased strength, Decreased range of motion, Decreased endurance, Impairedgait, Impaired balance, Decreased coordination, Decreased mobility Prognosis: Good Evaluation/Treatment Tolerance: Patient limited by fatigue Comments: some improvement since eval, but increased coughing today (pt reports 12 steps into home,recommend str) Medical Staff Made Aware: Yes Plan Treatment/Interventions: Functional transfer training, LE strengthening/ROM, Bed mobility, Gait training PT Plan: Skilled PT PT Frequency: 2-5 days per week PT Duration of Sessions: 15-30 min per session PT Treatments per day: 1 time per day PT Discharge Recommendations: [facility] facility placement PT - Evaluation Status: Complete Physical Therapy Goals/Education Encounter Problems Encounter Problems (Active) Template: Physical Therapy Problem: PT Short Term Goals Dates: Start: 02/01/25 Goal: Pt will ambulate up to 50ft with RW with SBA Dates: Start: 02/01/25 Expected End: 02/08/25 Outcomes Date/Time User Outcome 02/06/25 1322 Rea Lima PT Progressing Encounter Problems (Resolved) There are no resolved problems. Education Documentation Home Exercise Program, taught by Amanda Rowley PT at 02/07/2025 10:52 AM. Learner: Patient Readiness: Eager Method: Explanation, Demonstration Response: Verbalizes Understanding, Demonstrated Understanding, Needs Reinforcement Mobility Training, taught by Amanda Rowley PT at 02/07/2025 10:52 AM. Learner: Patient Readiness: Eager Method: Explanation, Demonstration Response: Verbalizes Understanding, Demonstrated Understanding, Needs Reinforcement Education Comments No comments found. Amanda Rowley PT * Ruth Arriola - 02/07/2025 10:21 AM EDT IMM-signed by patient at bedside copy given, copy placed in chart on 02/07/2025 @ 9:45 am * Wendy York OT - 02/07/2025 10:15 AM EDT [facility] Occupational Therapy Treatment Note DATE: Friday February 07, 2025 TIME IN: 1015 TIME OUT: 1045 Pt: Anjana Wallace [phone] DISCHARGE RECS: Inpatient rehab facility placement EQUIPMENT RECS: Walker - rolling SAFE PT HANDLING REC FOR STAFF: Supervision PRECAUTIONS: Precautions Medical Precautions: Fall Risk Safety Interventions: Call james within reach, ID band on, Chair alarm RUE Weight Bearing Status: Full LUE Weight Bearing Status: Full RLE Weight Bearing Status: Full LLE Weight Bearing Status: Full ASSESSMENT: Pt participated in skilled OT session today. Patient engaged in self care tasks. Patient was most limited today by decreased endurance, decreased ADLs and IADLs. Patient verbalized understanding to education provided and responded appropriately to cues. Patient would continue to benefitfrom skilled acute care OT to address deficits. Subjective I'm feeling better today Objective 02/07/25 1015 OT Last Visit OT Received On 02/07/25 General Family/Caregiver Present No OT Time Calculation OT Start Time 1015 OT Stop Time 1045 OT Time Calculation (min) 30 min Precautions Medical Precautions Fall Risk Safety Interventions Call james within reach;ID band on;Chair alarm RUE Weight Bearing Status Full LUE Weight Bearing Status Full RLE Weight Bearing Status Full LLE Weight Bearing Status Full Vital Signs Patient Identification Yes Oxygen Therapy Oxygen Therapy Supplemental oxygen O2 Delivery Method Nasal cannula O2 Flow Rate (L/min) 2 L/min Pain Assessment Pain Assessment No/denies pain Pain Score 0 - No pain ADLs/IADLs Self Care/Home Management (ADLs) Time Entry 30 ADL/ IADL Performed Dressing (LB) LE Dressing LE Dressing Yes Pants Level of Assistance Supervision LE Dressing Where Assessed Chair/recliner Functional Transfers Sit to Stand Assistance Supervision Stand to Sit Assistance Supervision Functional Mobility Walking Assistance Supervision Device Rolling walker Distance Ambulated (ft) 10 (x4) Activity Tolerance Endurance Tolerates 30+ min activity without fatigue Cognition Overall Cognitive Status WFL Arousal/Alertness Appropriate responses to stimuli Orientation Level Oriented X4 Following Commands Follows all commands and directions without difficulty Safety Judgment Good awareness of safety precautions Awareness of Errors Good awareness of errors made Deficits Fully aware of deficits Attention Span Appears intact Memory Appears intact Insight WFL Perseveration Not present Problem Solving Able to problem solve independently Other Activity Other Activity 1 upon approach pt seated in chair, pt agreeable to participate in OT session. Pt practiced donning/ doffing ketty pants from seated position in chair with supervision for safety withtask. Pt completed sit <> stand to RW with supervision in order to hike pants over buttocks. Pt completed functional mobility in room with RW with supervision and assistance to manage O2 tubing approx 10 ft x4. Pt left in chair with chair alarm activated/. OT Assessment OT Assessment Results Decreased ADL status;Decreased endurance;Decreased functional mobility;Decreased IADLs Prognosis Excellent Evaluation/Treatment Tolerance Patient tolerated treatment well Plan Treatment Interventions ADL retraining;Functional transfer training;Endurance training OT Plan Skilled OT OT Frequency 2-5 days per week OT Duration of Sessions 30-60 min per session OT Treatments per day 1 time per day OT - Evaluation Status Complete OT Discharge Recommendations Inpatient rehab facility placement Equipment Recommended Walker - rolling ADDITIONAL COMMENTS: Chart reviewed. RN clears pt for session. Pt agrees to participate and received sitting in chair. All lines in place. Medical and safety precautions observed appropriately. Patient educated on Role of OT, Transfer Safety, Ambulation Safety, ADL Techniques and Safety , andEnergy Conservations strategies. Fair verbal understanding and return demonstration. Additional education and training recommended. EXIT STATUS: Session ended with patient sitting in chair and chair alarm activated. Needs in reach. RN notified. Assessment & Plan EDUCATION Education Documentation Body Mechanics, taught by Wendy York OT at 02/07/2025 10:50 AM. Learner: Patient Readiness: Eager Method: Explanation Response: Verbalizes Understanding Comment: pt was able to don/doff ketty pants seated in chair with supervision, ot provided VC for tecnique. ADL Training, taught by Wendy York OT at 02/07/2025 10:50 AM. Learner: Patient Readiness: Eager Method: Explanation Response: Verbalizes Understanding Comment: pt was able to don/doff ketty pants seated in chair with supervision, ot provided VC for tecnique. Education Comments No comments found. Encounter Problems Encounter Problems (Active) Template: Occupational Therapy Problem: OT Short Term Goals Dates: Start: 02/06/25 Goal: pt will complete toilet txfer with RW IND Dates: Start: 02/06/25 Expected End: 02/13/25 Goal: pt will complete lower body dressing task LRAD AE PRN SPV Dates: Start: 02/06/25 Expected End: 02/13/25 Encounter Problems (Resolved) There are no resolved problems. Wendy York OT * Antonia Chapin MD - 02/06/2025 2:53 PM EDT [facility] Provider Response Note PATIENT: ANJANA WALLACE : 1945 ADMIT DATE: 01/31/2025 6:49 PM DISCH DATE: RESPONDING PROVIDER #: [id number] PROVIDER RESPONSE TEXT: The patient has septic encephalopathy. QUERY TEXT: Encephalopathy is documented in the medical record. Please specify the type. ED Provider Notes 01/31/2025 presents to the ED via EMS after being found on the ground at home. Fall was unwitnessed and family members did not know how long patient had been on the floor. Patient does not recall any falls and states she cannot recall anything from this morning or last night. Patient is otherwise alert and oriented x 4. She complains of some posterior head pain but states is due to the cervical collar pressing on where her surgery was. Consults 02/02/2025 Sepsis, POA. Potential source pulmonary versus urinary Acute hypoxic respiratory failure Aspiration pneumonia in the setting of healthcare exposure and immunocompromise status - Chest x-ray showed postsurgical changes of the left lung with new linear left upper lobe opacity. - Negative respiratory PCR panel E. coli UTI - Pyuria/hematuria/positive nitrite on UA. - Urine culture grew more than 100k colonies of guzman susceptible E coli. 01/31 admission blood cultures sterile after 1 day. - CT abdomen and pelvis showed cortical scarring of the left kidney, left renal cyst but no obstructive uropathy or urolithiasis. Neutrophilic leukocytosis- due to above Acute encephalopathy-resolving JP on CKD, CrCl 22 Progress Notes 02/03/2025 (1) Is a little confused to me. Contact: [phone] The patient's clinical indicators include: Options provided: -- Alcoholic -- Anoxic -- Due to medication(s) or drugs, Please specify the medication or drug(s) in the box. -- Hepatic -- Hypertensive -- Hypoxic -- Hypoxic ischemic, Specify if mild, moderate or severe. -- Metabolic -- Septic -- Toxic metabolic -- Wernicke?s -- Other - I will add my own diagnosis -- Disagree - Not applicable / Not valid Query created by: Chio Trejo on 02/06/2025 1:16 PM Electronically signed by: ANTONIA CHAPIN MD 02/06/2025 2:53 PM * Antonia Chapin MD - 02/06/2025 2:38 PM EDT Images from the original note were not included. [place] PROGRESS NOTE Date: 02/06/2025 Author: Antonia Chapin MD Patient ID: Anjana Wallace is a 79 y.o. female : 1945 MR#: [id number] 01/31/2025 SUBJECTIVE Patient seen and examined today. No overnight events. Patient doing a lot better. Patient having a lot of cough and also complaining of dizziness from sitting to standing position and moving around in bed. Scheduled Medications PRN Medications IV Medications acetaminophen, 1,000 mg, q8h HERNÁN aspirin, 81 mg, Daily atorvastatin, 40 mg, Daily cefTRIAXone, 1 g, q24h [Held by provider] furosemide, 40 mg, BID 09-17 gabapentin, 100 mg, TID heparin (porcine), 5,000 Units, q12h HERNÁN hydrALAZINE, 10 mg, BID insulin glargine, 10 Units, Nightly insulin lispro, 2-12 Units, Before meals & nightly ipratropium-albuteroL, 3 mL, 4x daily isosorbide mononitrate, 30 mg, Daily metoprolol tartrate, 25 mg, q6h morphine, 2 mg, Once [Held by provider] sacubitriL-valsartan, 1 tablet, BID spironolactone, 12.5 mg, Daily benzonatate, 100 mg, TID PRN bisacodyL, 10 mg, Daily PRN dextromethorphan-guaiFENesin, 10 mL, q4h PRN dextrose 50%, 12.5 g, q15 min PRN dextrose 50%, 25 g, q15 min PRN dextrose, 15 g, q15 min PRN dextrose, 30 g, q15 min PRN glucagon injection, 1 mg, Once PRN ipratropium-albuteroL, 3 mL, q6h PRN sodium chloride, 42 mL/hr, PRN sodium chloride, 42 mL/hr, PRN OBJECTIVE Vitals: 02/06/25 0744 02/06/25 0754 02/06/25 0950 02/06/25 1250 BP: 139/81 BP Location: Left arm Patient Position: Lying Pulse: 88 98 Resp: 20 Temp: 36.4 ??C (97.5 ??F) TempSrc: Temporal SpO2: 97% 96% 98% 98% Weight: Height: Intake/Output Summary (Last 24 hours) at 02/06/2025 1438 Last data filed at 02/06/2025 1004 Gross per 24 hour Intake 10 ml Output 1700 ml Net -1690 ml Wt Readings from Last 1 Encounters: 02/06/25 0600 66.2 kg (146 lb) 02/06/25 0332 68.4 kg (150 lb 12.8 oz) 02/05/25 0600 67.3 kg (148 lb 4.8 oz) 02/05/25 0500 67.3 kg (148 lb 4.8 oz) 02/04/25 0351 69 kg (152 lb 3.2 oz) 02/03/25 0600 70.9 kg (156 lb 4.8 oz) 02/02/25 0745 63.7 kg (140 lb 8 oz) 02/02/25 0700 63.7 kg (140 lb 8 oz) 02/02/25 0600 63.9 kg (140 lb 12.8 oz) 01/31/25 1112 64.4 kg (142 lb) PHYSICAL EXAM: Gen: Alert oriented x 3, on oxygen 2 L nasal cannula CV -S1-S2 regular rate rhythm, No MRG Lungs -bilateral clear to auscultation Abd - Soft, non-tender, non-distended Extremities - No LE edema Neuro - AO x3 RESULTS: CBC BMP Results from last 7 days Lab Units 02/06/25 0552 02/05/25 0558 02/04/25 0649 02/03/25 1543 02/03/25 0656 WBC AUTO K/mcL 7.3 7.7 7.8 -- 7.4 HEMOGLOBIN g/dL 10.5* 10.1* 8.6* 7.1* 6.1* HEMATOCRIT % 33.6* 32.5* 27.9* 24.0* 20.8* PLATELETS K/mcL 346 329 281 -- 282 LYMPHS PCT AUTO % 11.2 13.1 12.1 -- 13.0 MONO PCT AUTO % 10.1 9.5 11.5 -- 12.7 EOS PCT AUTO % 8.3 9.2 10.1 -- 2.0 Results from last 7 days Lab Units 02/06/25 0552 02/05/25 0558 02/04/25 0649 02/03/25 0656 02/02/25 0419 SODIUM mmol/L 135 136 136 137 140 POTASSIUM mmol/L 3.7 4.1 3.5 3.9 3.9 CHLORIDE mmol/L 105 106 106 107 107 CO2 mmol/L 23 24 24 21 23 ANION GAP 7 6 6 9 10 BUN mg/dL 27* 26* 26* 27* 21 CREATININE mg/dL 2.09* 1.95* 1.99* 2.01* 1.76* CALCIUM mg/dL 8.3* 8.3* 8.0* 8.0* 8.3* MAGNESIUM mg/dL 1.9 1.9 -- 2.1 2.3 Results from last 7 days Lab Units 02/06/25 1126 02/06/25 0745 02/06/25 0552 02/05/25 2112 02/05/25 1605 POCT GLUCOSE mg/dL 231* 126* -- 278* 252* GLUCOSE mg/dL -- -- 87 -- -- Results from last 7 days Lab Units 01/31/25 1111 AST unit/L 7* ALT unit/L 11 Recent Results (from the past week) Culture urine Collection Time: 01/31/25 4:00 PM Specimen: Urine, Clean Catch Result Value Ref Range Culture, Urine >100,000 CFU/mL Escherichia coli (A) Susceptibility Escherichia coli - ALEXEY Amoxicillin/Clavulanate Susceptible ug/ml Ampicillin/Sulbactam Susceptible ug/ml Piperacillin/Tazobactam Susceptible ug/ml Cefazolin (Urine) Susceptible ug/ml Cefoxitin Susceptible ug/ml Ceftazidime Susceptible ug/ml Ceftriaxone Susceptible ug/ml Cefepime Susceptible ug/ml Meropenem Susceptible ug/ml Amikacin Susceptible ug/ml Gentamicin Susceptible ug/ml Ciprofloxacin Susceptible ug/ml Levofloxacin Susceptible ug/ml Nitrofurantoin Susceptible ug/ml Trimethoprim/Sulfamethoxazole Susceptible ug/ml Blood Culture, Peripheral Draw #2 Collection Time: 01/31/25 6:27 PM Specimen: Blood, Venous Result Value Ref Range Culture, Blood No growth at 5 days Blood Culture, Peripheral Draw #1 Collection Time: 01/31/25 6:38 PM Specimen: Blood, Venous Result Value Ref Range Culture, Blood No growth at 5 days Respiratory virus panel molecular study Collection Time: 01/31/25 6:38 PM Specimen: Nares; Swab Result Value Ref Range Adenovirus Detection by PCR Not Detected Not Detected Influenza A PCR Not Detected Not Detected Influenza B PCR Not Detected Not Detected Coronavirus 229E Not Detected Not Detected Coronavirus HKU1 Not Detected Not Detected Coronavirus OC43 Not Detected Not Detected Coronavirus NL63 Not Detected Not Detected Parainfluenza Virus 1 Not Detected Not Detected Parainfluenza Virus 2 Not Detected Not Detected Parainfluenza Virus 3 Not Detected Not Detected Parainfluenza Virus 4 Not Detected Not Detected RSV PCR Not Detected Not Detected Human Metapneumovirus A and B Not Detected Not Detected Rhinovirus/Enterovirus Not Detected Not Detected Bordetella pertussis Not Detected Not Detected Bordetella parapertussis Not Detected Not Detected Mycoplasma pneumo by PCR Not Detected Not Detected Chlamydia pneumoniae Not Detected Not Detected SARS COV-2 Not Detected Not Detected Legionella antigen urine, EIA Collection Time: 02/02/25 11:12 AM Result Value Ref Range Legionella Antigen, Ur Negative Negative MRSA molecular study Collection Time: 02/02/25 11:13 AM Specimen: Nares; Swab Result Value Ref Range MRSA Screen PCR Not Detected Not Detected Imaging: XR Chest 1 View Narrative: PROCEDURE: AP chest radiograph. HISTORY: infection. COMPARISON: 02/01/2025. FINDINGS: Stable line and and scarring in the upper left lung. Mild diffuse interstitial prominence is improved, possibly improving interstitial edema. Atherosclerotic calcification of the aorta. Unchanged cardiomediastinal contours. No pneumothorax. Degenerative changes of the spine. Impression: Decreased interstitial prominence suspected to represent improving interstitial edema. -------- FINAL REPORT -------- Dictated By: Uziel Kaplan Dictated Date: 02/03/2025 11:34 ET Assigned Physician: Uziel Kaplan Reviewed and Electronically Signed By: Uziel Kaplan Signed Date: 02/03/2025 11:35 ET Workstation ID: [id number] Transcribed By: Self Edit Transcribed Date: 02/03/2025 11:34 ET ASSESSMENT & PLAN 79-year-old female with PMH of lung cancer s/p left upper lobectomy 2019 s/p chemotherapy and radiation, recently seen by neurology at [facility] for new brain mass s/p right suboccipital craniotomy on 12/03/2024, NIDDM, HFrEF, CKD, and hyperlipidemia presents to the ED after being found on the ground, unwitnessed fall. Severe sepsis on admission Acute respiratory failure with hypoxia on admission Questionable community-acquired pneumonia Also found to have a urinary tract infection urine culture growing E. coli Patient initially on admission was febrile with tachycardia and hypoxic. She was placed on oxygen and was given IV fluids and albumin. She was initially started on ceftriaxone and azithromycin. Given immunocompromise status and history of lung cancer And urine cultures growing E. coli will switch her antibiotics to IV Zosyn and vancomycin Blood cultures have been negative. Appreciate ID recommendations Urine culture is growing E. coli we will switch her from IV Zosyn to IV ceftriaxone at this time. Syncope and collapse likely in the setting of infection and dehydration and sepsis. Acute on chronic heart failure with reduced ejection fraction. Flash pulmonary edema History of HFrEF patient was given IV fluids and was started on IV fluids and was also given albumin Patient went into flash pulmonary edema on 02/01/2025. Chest x-ray done and looks like has right-sided pulmonary vascular congestion. IV fluids were discontinued. Patient was on IV Lasix 40 mg twice daily. -1.6 L since yesterday. Weight is down 2 kg. Patient on Entresto which has been held until now because of increased creatinine Patient was on high flow oxygen now weaned off and is on 2 L nasal cannula. Elevated troponins likely from demand ischemia Patient denies any chest pain. Echo done showed reduced systolic function and ejection fraction of 40 to 45%. Hypokinesis of the basal to mid inferior wall and inferoseptal kelley. Grade 2 LV diastolic dysfunction. No significant valvular disease. When compared to the report done in November 2024 LVEF has improved. Continue with Lasix. Patient on Toprol. Entresto and spironolactone held at this time because increased creatinine. Will continue to monitor creatinine levels. Statrted on Hydralazine per cards for afterload reduction History of lung cancer with metastasis follows by Dr. Faye status post left upper lobectomy and mediastinal lymphadenectomy [id number] treated with radiation and chemotherapy On 11/30/2024 patient was found to have brain mass with hydrocephalus with effacement of fourth ventricle and underwent right suboccipital craniotomy on 12/03/2024 Anemia likely chronic disease continue to monitor no signs of blood loss at this time. Transfuse ifhemoglobin less than 7 Hemoglobin 6.1 on 02/03/2025. Was transfused 2 units of blood and her hemoglobin is 10.5 today JP on CKD initially likely because of sepsis Patient because of JP was prerenal Later most likely because of hypervolemia creatinine 2.01 Lasix held Type 2 diabetes holding her home meds will start her on Lantus and insulin sliding scale Hyperlipidemia on statins PT saw pt recommending rehab DVT Prophylaxis and be started on subcu heparin Full Code - Default Disposition Pt needs rehab , was dizzy today , if better tomorrow can be discharged Updated brother Davian about patient's condition * Wendy York OT - 02/06/2025 12:50 PM EDT [facility] Occupational Therapy Evaluation DATE: Thursday February 06, 2025 TIME IN: 1250 TIME OUT: 1320 Pt: Anjana Wallace [facility] [id number] Discharge Recommendation: Inpatient Rehab and Pt is currently below their baseline and currently requires physical assistance with all ADL and mobility tasks therefore this therapist recommends rehabin order for deficits to be addressed needed to safely d/c back into the community and return to prior level of function. Equipment Recommendation: walker Staff recommendations for safe patient handling: Contact guard with RW Assessment: Patient is a 79 y.o. y.o. female presenting for OT evaluation following admission due to UTI, syncope + collapse, respiratory failure. During today's skilled acute care OT evaluation, pt demonstrated the following deficits: decreased ADLs, txfers, sit to stands, fxnl mobility, IADLs . Pt currently requires assistance for ADLs and physical assistance for functional transfers/mobility. Pt will continue to benefit from skilled acute care OT services this admission to facilitate improvements in the areas of deficit listed above and to progress toward their PLOF with ADLs and IADLs. OT Time Calculation OT Start Time: 1250 OT Stop Time: 1320 OT Time Calculation (min): 30 min History of Present Illness: Patient is a 79 y.o. female admitted to [facility] on 01/31/2025. Occupational Therapy evaluation and treatment ordered to assess ADL independence, safety, and functional mobility for discharge planning. Patient Active Problem List Diagnosis Primary adenocarcinoma of upper lobe of left lung (CMS/HCC V24, CMS/HCC V28) Metastasis to brain (CMS/HCC V24, CMS/HCC V28) Syncope and collapse History reviewed. No pertinent past medical history. History reviewed. No pertinent surgical history. Subjective Patient agreeable to engage in OT evaluation and treatment. Objective Patient was identified by name and x2. Hearing: Intact Speech: Intact Vision: Vision: Intact 02/06/25 1250 OT Last Visit OT Received On 02/06/25 General Family/Caregiver Present No OT Time Calculation OT Start Time 1250 OT Stop Time 1320 OT Time Calculation (min) 30 min Precautions Medical Precautions Fall Risk Safety Interventions Call james within reach;ID band on;Bed alarm RUE Weight Bearing Status Full LUE Weight Bearing Status Full RLE Weight Bearing Status Full LLE Weight Bearing Status Full Vital Signs Patient Identification Yes SpO2 98 % Oxygen Therapy Oxygen Therapy Supplemental oxygen O2 Delivery Method Nasal cannula O2 Flow Rate (L/min) 1 L/min Pain Assessment Pain Assessment No/denies pain Pain Score 0 - No pain Home Living Type of Home House Lives With Alone (brother and nephew live on first floor. Pt lives on 2nd floor of the apartment building) Home Adaptive Equipment Walker - rolling Home Layout One level;Full bath main level (lives on 2nd floor, one level once inside) Home Access Stairs to enter with rails Entrance Stairs-Rails Rail on the left going up Entrance Stairs-Number of Steps 4 (4 DAMON on the exterior and 12 steps to get to her apt) Prior Function Level of [place] Independent with mobility and functional transfers Ambulation Status Household ambulator Receives Help From Family Indoor Mobility Assistance Independent Prior Device Use Walker Do you drive? No Which is your dominant hand? Right ADL/IADL History ADL Assistance (Self Care) Independent Homemaking Assistance (Functional Cognition) Needed Some Help ADL Eating Assistance Setup Grooming Assistance Setup Oral Hygiene Assistance Setup Bathing Assistance Minimum assistance UE Dressing Assistance Supervision LE Dressing Assistance Minimum assistance Footwear Assistance Minimum assistance Toileting Assistance Minimum assistance Bed Mobility Sitting to Lying Assistance Moderate assistance (lifting sai LEs onto bed) Functional Transfers Sit to Stand Assistance Contact guard (with RW) Toilet Transfer Assistance Contact guard Functional Mobility Walking Assistance Contact guard Device Rolling walker Distance Ambulated (ft) 10 (12) Cognition Overall Cognitive Status WFL Arousal/Alertness Appropriate responses to stimuli Following Commands Follows one step commands without difficulty Perception Inattention/Neglect Appears intact Proprioception Proprioception No apparent deficits Sensation Light Touch No apparent deficits Hand Function Gross Grasp Functional Coordination Coordination Functional RUE Assessment RUE Assessment Within Functional Limits LUE Assessment LUE Assessment Within Functional Limits OT Assessment OT Assessment Results Decreased ADL status;Decreased endurance;Decreased fine motor control;Decreased gross motor control;Decreased functional mobility Prognosis Good Evaluation/Treatment Tolerance Patient tolerated treatment well Plan Treatment Interventions ADL retraining;Functional transfer training;UE strengthening/ROM;Endurance training OT Plan Skilled OT OT Frequency 2-5 days per week OT Duration of Sessions 30-60 min per session OT Treatments per day 1 time per day OT - Evaluation Status Complete OT Discharge Recommendations (rehab) Equipment Recommended Walker-rolling OT Evaluation Time Entry OT Evaluation (Low) Time Entry 30 Pt is currently below her baseline and requires physical assistance with all ADL and mobility taskstherefore this therapist recommends rehab in order for deficits to be addressed needed to safely d/c back into community. ADDITIONAL COMMENTS: Chart reviewed. RN clears pt for session. Pt agrees to participate and received sitting in chair. All lines in place. No family or guests present during session. Medical precautions observed appropriately. Initiated education on Role of OT and ADL Techniques and Safety . Pt needs reinforcement for carry over. EXIT STATUS: Session ended with patient supine with HOB elevated. Needs in reach. RN made aware. OT Goals Pt seen for OT eval and treatment session to assess ADL and functional status. See above for details of evaluation/treatment session. OT Assessment OT Assessment Results: Decreased ADL status, Decreased endurance, Decreased fine motor control, Decreased gross motor control, Decreased functional mobility Prognosis: Good Evaluation/Treatment Tolerance: Patient tolerated treatment well Plan Treatment Interventions: ADL retraining, Functional transfer training, UE strengthening/ROM, Endurance training OT Plan: Skilled OT OT Frequency : 2-5 days per week OT Duration of Sessions: 30-60 min per session OT Treatments per day: 1 time per day OT - Evaluation Status: Complete OT Discharge Recommendations: (rehab) Equipment Recommended: Walker-rolling Encounter Problems Encounter Problems (Active) Template: Occupational Therapy Problem: OT Short Term Goals Dates: Start: 02/06/25 Goal: pt will complete toilet txfer with RW IND Dates: Start: 02/06/25 Expected End: 02/13/25 Goal: pt will complete lower body dressing task LRAD AE PRN SPV Dates: Start: 02/06/25 Expected End: 02/13/25 Encounter Problems (Resolved) There are no resolved problems. Education Documentation Body Mechanics, taught by Wendy York OT at 02/06/2025 2:00 PM. Learner: Patient Readiness: Acceptance Method: Explanation Response: Verbalizes Understanding ADL Training, taught by Wendy York OT at 02/06/2025 2:00 PM. Learner: Patient Readiness: Acceptance Method: Explanation Response: Verbalizes Understanding Education Comments No comments found. Wendy York OT * Rea Lima, PT - 02/06/2025 9:50 AM EDT [facility] Physical Therapy Treatment PT Discharge Recommendations: [facility] facility placement Staff Recommendations for safe patient handling: allow extra time after transitions to manage dizziness; min assist -cga for transfers and ambulation; ambulate to bathroom with rolling walker whenever possible ,instead of bed guzman Precautions Medical Precautions: Fall Risk Safety Interventions: Call james within reach, ID band on, Bed alarm, Side rails up x1 RUE Weight Bearing Status: Full LUE Weight Bearing Status: Full RLE Weight Bearing Status: Full History of Present Illness: Patient is a 79 y.o. female admitted to [facility] on 01/31/2025 with: Patient Active Problem List Diagnosis Primary adenocarcinoma of upper lobe of left lung (CMS/HCC V24, CMS/HCC V28) Metastasis to brain (CMS/HCC V24, CMS/HCC V28) Syncope and collapse Fall prevention education provided including use of call light in hospital, use of appropriate assistive device, safe mobility techniques, and safety measures at home. Continue PT as per POC. Subjective I'm not dizzy when I walk Objective 02/06/25 0950 PT Last Visit PT Received On 02/06/25 General Family/Caregiver Present No PT Time Calculation PT Start Time 0950 PT Stop Time 1020 PT Time Calculation (min) 30 min Precautions Medical Precautions Fall Risk Safety Interventions Call james within reach;ID band on;Bed alarm;Side rails up x1 RUE Weight Bearing Status Full LUE Weight Bearing Status Full RLE Weight Bearing Status Full Vital Signs Heart Rate 98 SpO2 98 % Oxygen Therapy Oxygen Therapy Supplemental oxygen O2 Delivery Method Nasal cannula O2 Flow Rate (L/min) 2 L/min Pain Assessment Pain Assessment No/denies pain Cognition Overall Cognitive Status WFL Activity Tolerance Endurance Tolerates 20 - 30 min activity with multiple rests Activity Tolerance Comments moderately SOB Bed Mobility Sitting to Lying Assistance Independent Lying to Sitting Assistance Modified independent Transfers Sit to Stand Assistance Contact guard Chair/Bed to Chair/Bed Transfer Assistance Minimum assistance Toilet Transfer Assistance Minimum assistance Ambulation Walking Assistance Contact guard Device Rolling walker Distance Ambulated (ft) 25 Stairs Stairs Assistance Not attempted, medical/safety concerns Procedures Procedures Therapeutic Activity Therapeutic Activity Therapeutic Activity Time Entry 30 Therapeutic Activity 1 pt in bed at outset of visit; she moved supine -sitting uising bed bar and hob up,mod indpendently Therapeutic Activity 2 pt c/o dizziness once up sitting; sat unsuppported independently x 2 minutesuntil improved, then moved up to standing at [facility] with min assist Therapeutic Activity 3 Pt stood, supported at [facility] , [facility] x 1 minute then was able to ambulate inroom with 02 at 2lpm with assist managing 02 and cga. Therapeutic Activity 4 Pt walked x 10 ft to br and transferred to toilet, min assist with grab bar and rw Therapeutic Activity 5 pt stood up, min assist and ambulated x 25 ft with rwalker, cga, no LOB or dizziness during ambulation; she was mild-mod SOB, but 02 sats at 99%; She performed spt to bed sdie chair, min assist for safety and weight shfit. after a seated rest stood without c/o dizziness and performed 5 sit to stand transfers, cga. pt fatigued at end but not dizzy. alarms in place (advised nsg to encourage assisted ambulation to br instead of bed guzman, providing extra time after transitions to manage dizziness and cga with rwalker.) PT Assessment PT Assessment Results Decreased strength;Decreased endurance;Impaired balance;Impaired gait;Decreased mobility;Decreased safety awareness;Other (Comment) (sob, coughing, and dizziness after transitions) Prognosis Good Evaluation/Treatment Tolerance Patient limited by fatigue Comments some improvement since eval, but increased coughing today (pt reports 12 steps into home, recommend str) Plan Treatment/Interventions UE strengthening/ROM;LE strengthening/ROM;Endurance training;Patient/familytraining;Equipment eval/education;Bed mobility;Gait training;Compensatory technique education;Continued evaluation;Balance training PT Plan Skilled PT PT Frequency 2-5 days per week PT Discharge Recommendations [facility] facility placement Procedure/Treatment: Procedures Procedures: Therapeutic Activity Therapeutic Activity Therapeutic Activity Time Entry: 30 Therapeutic Activity 1: pt in bed at outset of visit; she moved supine -sitting uising bed bar and hob up,mod indpendently Therapeutic Activity 2: pt c/o dizziness once up sitting; sat unsuppported independently x 2 minutes until improved, then moved up to standing at [facility] with min assist Therapeutic Activity 3: Pt stood, supported at alk , [facility] x 1 minute then was able to ambulate in room with 02 at 2lpm with assist managing 02 and cga. Therapeutic Activity 4: Pt walked x 10 ft to br and transferred to toilet, min assist with grab barand rw Therapeutic Activity 5: pt stood up, min assist and ambulated x 25 ft with rwalker, cga, no LOB or dizziness during ambulation; she was mild-mod SOB, but 02 sats at 99%; She performed spt to bed sdiechair, min assist for safety and weight shfit. after a seated rest stood without c/o dizziness and performed 5 sit to stand transfers, cga. pt fatigued at end but not dizzy. alarms in place (advised nsg to encourage assisted ambulation to br instead of bed guzman, providing extra time after transitions to manage dizziness and cga with rwalker.) Patient left sitting up in chair. Alarm in place. RN notified of pt. status, location, response to treatment, and therapy recommendations. Physical Therapy Assessment/Plan PT Assessment PT Assessment Results: Decreased strength, Decreased endurance, Impaired balance, Impaired gait, Decreased mobility, Decreased safety awareness, Other (Comment) (sob, coughing, and dizziness after transitions) Prognosis: Good Evaluation/Treatment Tolerance: Patient limited by fatigue Comments: some improvement since eval, but increased coughing today (pt reports 12 steps into home,recommend str) Medical Staff Made Aware: Yes Plan Treatment/Interventions: UE strengthening/ROM, LE strengthening/ROM, Endurance training, Patient/family training, Equipment eval/education, Bed mobility, Gait training, Compensatory technique education, Continued evaluation, Balance training PT Plan: Skilled PT PT Frequency: 2-5 days per week PT Duration of Sessions: 15-30 min per session PT Treatments per day: 1 time per day PT Discharge Recommendations: [facility] facility placement PT - Evaluation Status: Complete Physical Therapy Goals/Education Encounter Problems Encounter Problems (Active) Template: Physical Therapy Problem: PT Short Term Goals Dates: Start: 02/01/25 Goal: Pt will ambulate up to 50ft with RW with SBA Dates: Start: 02/01/25 Expected End: 02/08/25 Outcomes Date/Time User Outcome 02/05/25 1522 Abdirahman Lopez Progressing Encounter Problems (Resolved) There are no resolved problems. Education Documentation Home Exercise Program, taught by Rea Lima PT at 02/06/2025 1:17 PM. Learner: Patient Readiness: Acceptance Method: Explanation Response: Verbalizes Understanding, Needs Reinforcement Comment: encouraged pt, nsg staff to walk to br with rwalker, cga, allowing extra time after transitions to manage dizziness Mobility Training, taught by Rea Lima PT at 02/06/2025 1:17 PM. Learner: Patient Readiness: Acceptance Method: Explanation Response: Verbalizes Understanding, Needs Reinforcement Comment: encouraged pt, nsg staff to walk to br with rwalker, cga, allowing extra time after transitions to manage dizziness Education Comments No comments found. Rea Lima PT * Carrie Sanford RN - 02/06/2025 2:28 AM EDT Problem: Cognitive: Manda Lizama Fall Risk Goal: Last Known Fall Outcome: Progressing Goal: Mobility requiring assistance of person or device Outcome: Progressing Goal: Dizziness Outcome: Progressing Goal: Medications Outcome: Progressing Goal: Mental Status/LOC/Awareness Outcome: Progressing Goal: Toileting Needs Outcome: Progressing Goal: Volume and Electrolyte Status Outcome: Progressing Goal: Communication/Sensory Outcome: Progressing Goal: Behavior Outcome: Progressing Goals: Identify possible barriers to meeting goals/advancing plan of care: lasix po, iv abx Stability of the patient: Moderately Unstable - Medium risk of patient condition declining or worsening End of Shift Summary: pt had 2 loose BM until this time, no complains of any SOB, Nausea or pain. Pt states feeling better today * Елена Domingo RN - 02/05/2025 4:22 PM EDT ISABELA: 02/06-02/07 Barrier: transition to PO diuretics today, med adjustments per cardiology, IV antibiotics Plan: STR. Pt is agreeable. * Jamari Oliva MD - 02/05/2025 2:40 PM EDT Images from the original note were not included. [facility] Cardiology- Cardiology Follow-up Note PATIENT NAME: Anjana Wallace ([id number]) ASSESSMENT & PLAN Principal Problem: Syncope and collapse HFrEF Is a 79-year-old history of HFrEF. Patient had been intolerant of medical therapy as far as guideline treatment is concerned. Creatinine now up to 2.0. Diuresing quite well high flow oxygen now on regular nasal cannula. Still diuresing quite well on p.o. Lasix. Yesterday 2.0 stated ACR B Entresto we will start her on hydralazine for afterload reduction given her pressure is next [facility] CARDI[facility] RECOMMENDATIONS: Will start hydralazine 10 mg twice daily for afterload reduction SUBJECTIVE Patient is comfortable off of high flow O2 REVIEW OF SYSTEMS (ROS): Negative except as mentioned in the HPI. PAST MEDICAL HISTORY She has no past medical history on file. PAST SURGICAL HISTORY She has no past surgical history on file. SOCIAL HISTORY Tob: reports that she has quit smoking. Her smoking use included cigarettes. She does not have any smokeless tobacco history on file. ETOH: has no history on file for alcohol use. Drug: has no history on file for drug use. FAMILY HISTORY She family history is not on file. MEDICATIONS: SCHEDULED MEDICATIONS: acetaminophen, 1,000 mg, oral, q8h HERNÁN aspirin, 81 mg, oral, Daily atorvastatin, 40 mg, oral, Daily cefTRIAXone, 1 g, intravenous, q24h furosemide, 40 mg, oral, BID 09-17 gabapentin, 100 mg, oral, TID heparin (porcine), 5,000 Units, subcutaneous, q12h HERNÁN insulin glargine, 10 Units, subcutaneous, Nightly insulin lispro, 2-12 Units, subcutaneous, Before meals & nightly ipratropium-albuteroL, 3 mL, nebulization, 4x daily isosorbide mononitrate, 30 mg, oral, Daily metoprolol tartrate, 25 mg, oral, q6h morphine, 2 mg, intravenous, Once [Held by provider] sacubitriL-valsartan, 1 tablet, oral, BID spironolactone, 12.5 mg, oral, Daily PRN MEDICATIONS: PRN medications: benzonatate, bisacodyL, dextromethorphan-guaiFENesin, dextrose 50%, dextrose 50%, dextrose, dextrose, glucagon injection, ipratropium- albuteroL, sodium chloride, sodium chloride DRIPS: ALLERGIES: She has No Known Allergies. OBJECTIVE Vitals: 02/05/25 1132 BP: Pulse: 82 Resp: 19 Temp: SpO2: 95% Body mass index is 28.04 kg/m??. PHYSICAL EXAMINATION: APPEARANCE: Alert and in no acute distress EYES: PERRL, conjunctiva and sclera normal EARS: External ears normal. NOSE/SINUS: Nares normal. Septum midline. Mucosa normal. No drainage or sinus tenderness. MOUTH/THROAT: no erythema or exudates NECK: JVP less then 8cm H2O, No bruits., Neck supple, no adenopathy, thyroid symmetric and of normal size HEART: RRR with normal S1 and S2, no murmurs, no gallops, no JVD appreciated CHEST: non-tender LUNG: clear to auscultation ABDOMEN: Bowel sounds normoactive, no bruits, soft, non-tender, without organomegaly or palpable masses EXTREMITIES: Extremities warm and well perfused without clubbing, cyanosis, or edema NEURO: Awake, alert and oriented x 3, no gross focal abnormalities PSYCH: Appropriate, calm SKIN: Skin color, texture, turgor normal. No rashes or lesions. Thank you for allowing us to participate in this consultation. Please feel free to contact us with questions or concerns. We will . 20 minutes was spent reviewing the medical record, imaging, labs, and seeing the patient which included explaining relevant diagnosis, providing patient education, discussing treatment options, in addition to documenting in the record. [facility] [address] [facility], [address] [place] [address] * Abdirahman Lopez - 02/05/2025 2:00 PM EDT [facility] Physical Therapy Treatment PT Discharge Recommendations: [facility] facility placement Staff Recommendations for safe patient handling: CGA for ambulation and transfers Precautions Medical Precautions: Fall Risk Safety Interventions: Call james within reach, ID band on, Bed alarm, Side rails up x1 RUE Weight Bearing Status: Full LUE Weight Bearing Status: Full RLE Weight Bearing Status: Full History of Present Illness: Patient is a 79 y.o. female admitted to [facility] on 01/31/2025 with: Patient Active Problem List Diagnosis Primary adenocarcinoma of upper lobe of left lung ([facility]/HCC V24, [facility] V28) Metastasis to brain ([facility] V24, [facility] V28) Syncope and collapse Fall prevention education provided including use of call light in hospital, use of appropriate assistive device, safe mobility techniques, and safety measures at home. Continue PT as per POC. Subjective I don't think I will be able to walk because I haven't in awhile Objective 02/05/25 1400 PT Last Visit PT Received On 02/05/25 General Family/Caregiver Present No PT Time Calculation PT Start Time 1400 PT Stop Time 1440 PT Time Calculation (min) 40 min Precautions Medical Precautions Fall Risk Safety Interventions Call james within reach;ID band on;Bed alarm;Side rails up x1 RUE Weight Bearing Status Full LUE Weight Bearing Status Full RLE Weight Bearing Status Full Vital Signs Heart Rate 103 Heart Rate Source Monitor BP (!) 126/90 (125/71 standing) MAP (Calculated) 102 mm Hg BP Method Automatic BP Location Left arm Patient Position Sitting SpO2 98 % Oxygen Therapy Oxygen Therapy Supplemental oxygen O2 Delivery Method Nasal cannula O2 Flow Rate (L/min) 2 L/min Pain Assessment Pain Assessment No/denies pain Cognition Overall Cognitive Status WFL Following Commands Follows one step commands without difficulty Activity Tolerance Endurance Tolerates 20 - 30 min activity with multiple rests Static Sitting Balance Static Sitting-Level of Assistance Supervision Static Sitting-Balance Support Feet supported;No upper extremity supported Static Standing Balance Static Standing-Level of Assistance Contact guard Static Standing-Balance Support Right upper extremity supported;Left upper extremity supported Dynamic Standing Balance Dynamic Standing-Level of Assistance Contact guard Dynamic Standing-Balance Ambulation Dynamic Standing-Balance Support Left upper extremity supported;Right upper extremity supported Bed Mobility Sitting to Lying Assistance Supervision Lying to Sitting Assistance Supervision Transfers Sit to Stand Assistance Contact guard Ambulation Walking Assistance Contact guard Device Rolling walker Distance Ambulated (ft) 20 Comments Pt had dizziness when first standing up, went away after a little while then was able to ambulate with RW. Dizziness did not return but pt fatigued quickly. Pt took extra time to navigate tight spaces. RLE Assessment RLE Assessment Within Functional Limits LLE Assessment LLE Assessment Within Functional Limits Procedures Procedures Therapeutic Activity Therapeutic Activity Therapeutic Activity Time Entry 40 Therapeutic Activity 1 Pt started therapy session in supine and was agreeable to participate. Pt performed supervised bed mobility to EOB and after sitting up became slightly dizzy. Pts blood pressure was taken (126/90) and given a minute for the dizziness to resolve. Once feeling better she performed a sit to stand with CGA to RW and the dizziness returned. Pts blood pressure was taken (124/71).Pt sat down again and the dizziness resolved. Pt stood again and there was no dizziness, pt then ambulated with CGA and RW into the bathroom where she turned around in a tight space taking increased time. Pt then ambulated back to bed, turned around again and ambulated to the window. Pt then returned to bed and performed supervised bed mobility to return to supine. Pt ended session in supine withelaina james within reach and nursing notified. PT Assessment PT Assessment Results Decreased strength;Decreased range of motion;Decreased endurance;Impaired balance;Impaired gait;Decreased mobility Prognosis Good Evaluation/Treatment Tolerance Patient tolerated treatment well Comments Pt had improved tolerance to activity compared to last session. Pt encouraged to get up and walk with nursing when needing to use the bathroom. Medical Staff Made Aware Yes Plan Treatment/Interventions Functional transfer training;LE strengthening/ROM;Endurance training;Patient/family training;Bed mobility;Gait training;Balance training PT Plan Skilled PT PT Frequency 2-5 days per week PT Discharge Recommendations [facility] facility placement PT - Evaluation Status Complete Procedure/Treatment: Procedures Procedures: (P) Therapeutic Activity Therapeutic Activity Therapeutic Activity Time Entry: (P) 40 Therapeutic Activity 1: (P) Pt started therapy session in supine and was agreeable to participate. Pt performed supervised bed mobility to EOB and after sitting up became slightly dizzy. Pts blood pressure was taken (126/90) and given a minute for the dizziness to resolve. Once feeling better she performed a sit to stand with CGA to RW and the dizziness returned. Pts blood pressure was taken (124/71). Pt sat down again and the dizziness resolved. Pt stood again and there was no dizziness, pt then ambulated with CGA and RW into the bathroom where she turned around in a tight space taking increased time. Pt then ambulated back to bed, turned around again and ambulated to the window. Pt then returned to bed and performed supervised bed mobility to return to supine. Pt ended session in supinewith call james within reach and nursing notified. Patient left lying supine in bed. RN notified of pt. status, location, response to treatment, and therapy recommendations. Physical Therapy Assessment/Plan PT Assessment PT Assessment Results: Decreased strength, Decreased range of motion, Decreased endurance, Impairedbalance, Impaired gait, Decreased mobility Prognosis: Good Evaluation/Treatment Tolerance: Patient tolerated treatment well Comments: (P) Pt had improved tolerance to activity compared to last session. Pt encouraged to get up and walk with nursing when needing to use the bathroom. Medical Staff Made Aware: Yes Plan Treatment/Interventions: Functional transfer training, LE strengthening/ROM, Endurance training, Patient/family training, Bed mobility, Gait training, Balance training PT Plan: Skilled PT PT Frequency: 2-5 days per week PT Duration of Sessions: 15-30 min per session PT Treatments per day: 1 time per day PT Discharge Recommendations: [facility] facility placement PT - Evaluation Status: Complete Physical Therapy Goals/Education Encounter Problems Encounter Problems (Active) Template: Physical Therapy Problem: PT Short Term Goals Dates: Start: 02/01/25 Goal: Pt will ambulate up to 50ft with RW with SBA Dates: Start: 02/01/25 Expected End: 02/08/25 Outcomes Date/Time User Outcome 02/05/25 1522 Abdirahman Lopez Progressing Encounter Problems (Resolved) There are no resolved problems. Education Documentation Home Exercise Program, taught by Abdirahman Lopez at 02/05/2025 3:22 PM. Learner: Patient Readiness: Acceptance Method: Explanation Response: Verbalizes Understanding Comment: Pt encouraged to get up with nursing staff to use the bathroom when she has to go. Mobility Training, taught by Abdirahman Lopez at 02/05/2025 3:22 PM. Learner: Patient Readiness: Acceptance Method: Explanation Response: Verbalizes Understanding Comment: Pt encouraged to get up with nursing staff to use the bathroom when she has to go. Education Comments No comments found. Abdirahman Lopez Cosigned by Rea Lima PT at 02/05/2025 3:33 PM EDT Associated attestation - Rea Lima PT - 02/05/2025 3:33 PM EDT Pt was integrally and physically involved in the decision making, delivery of interventions, and ongoing assessment during the pt's care session. * Antonia Chapin MD - 02/05/2025 11:41 AM EDT Images from the original note were not included. [place] PROGRESS NOTE Date: 02/05/2025 Author: Antonia Chapin MD Patient ID: Anjana Wallace is a 79 y.o. female : 1945 MR#: [id number] 01/31/2025 SUBJECTIVE Patient seen and examined today. No overnight events. Patient doing a lot better. She has been weaned off high flow oxygen and is on 2 L nasal cannula at this time. She feels a lot better. Her lungs are much better. She does have some cough. Scheduled Medications PRN Medications IV Medications acetaminophen, 1,000 mg, q8h HERNÁN aspirin, 81 mg, Daily atorvastatin, 40 mg, Daily cefTRIAXone, 1 g, q24h furosemide, 40 mg, BID 09-17 gabapentin, 100 mg, TID insulin glargine, 10 Units, Nightly insulin lispro, 2-12 Units, Before meals & nightly ipratropium-albuteroL, 3 mL, 4x daily isosorbide mononitrate, 30 mg, Daily metoprolol tartrate, 25 mg, q6h morphine, 2 mg, Once [Held by provider] sacubitriL-valsartan, 1 tablet, BID spironolactone, 12.5 mg, Daily benzonatate, 100 mg, TID PRN bisacodyL, 10 mg, Daily PRN dextromethorphan-guaiFENesin, 10 mL, q4h PRN dextrose 50%, 12.5 g, q15 min PRN dextrose 50%, 25 g, q15 min PRN dextrose, 15 g, q15 min PRN dextrose, 30 g, q15 min PRN glucagon injection, 1 mg, Once PRN ipratropium-albuteroL, 3 mL, q6h PRN sodium chloride, 42 mL/hr, PRN sodium chloride, 42 mL/hr, PRN OBJECTIVE Vitals: 02/05/25 0600 02/05/25 0803 02/05/25 0806 02/05/25 1132 BP: 136/79 BP Location: Left arm Patient Position: Lying Pulse: 80 83 82 Resp: 20 12 19 Temp: 36.1 ??C (97 ??F) TempSrc: Temporal SpO2: 95% 96% 95% Weight: 67.3 kg (148 lb 4.8 oz) Height: Intake/Output Summary (Last 24 hours) at 02/05/2025 1141 Last data filed at 02/05/2025 0502 Gross per 24 hour Intake 950 ml Output 2600 ml Net -1650 ml Wt Readings from Last 1 Encounters: 02/05/25 0600 67.3 kg (148 lb 4.8 oz) 02/05/25 0500 67.3 kg (148 lb 4.8 oz) 02/04/25 0351 69 kg (152 lb 3.2 oz) 02/03/25 0600 70.9 kg (156 lb 4.8 oz) 02/02/25 0745 63.7 kg (140 lb 8 oz) 02/02/25 0700 63.7 kg (140 lb 8 oz) 02/02/25 0600 63.9 kg (140 lb 12.8 oz) 01/31/25 1112 64.4 kg (142 lb) PHYSICAL EXAM: Gen: Alert oriented x 3, on oxygen 2 L nasal cannula CV -S1-S2 regular rate rhythm, No MRG Lungs -bilateral clear to auscultation Abd - Soft, non-tender, non-distended Extremities - No LE edema Neuro - AO x3 RESULTS: CBC BMP Results from last 7 days Lab Units 02/05/25 0558 02/04/25 0649 02/03/25 1543 02/03/25 0656 02/02/25418 WBC AUTO K/mcL 7.7 7.8 -- 7.4 7.7 HEMOGLOBIN g/dL 10.1* 8.6* 7.1* 6.1* 7.1* HEMATOCRIT % 32.5* 27.9* 24.0* 20.8* 23.8* PLATELETS K/mcL 329 281 -- 282 312 LYMPHS PCT AUTO % 13.1 12.1 -- 13.0 13.3 MONO PCT AUTO % 9.5 11.5 -- 12.7 12.3 EOS PCT AUTO % 9.2 10.1 -- 2.0 0.8 Results from last 7 days Lab Units 02/05/25 0558 02/04/25 0649 02/03/25 0656 02/02/25 04102/01/25 1628 SODIUM mmol/L 136 136 137 140 137 POTASSIUM mmol/L 4.1 3.5 3.9 3.9 4.5 CHLORIDE mmol/L 106 106 107 107 106 CO2 mmol/L 24 24 21 23 22 ANION GAP 6 6 9 10 9 BUN mg/dL 26* 26* 27* 21 21 CREATININE mg/dL 1.95* 1.99* 2.01* 1.76* 1.79* CALCIUM mg/dL 8.3* 8.0* 8.0* 8.3* 8.1* MAGNESIUM mg/dL 1.9 -- 2.1 2.3 2.3 Results from last 7 days Lab Units 02/05/25 1137 02/05/25 0805 02/05/25 0558 02/04/25 1948 02/04/25 1514 POCT GLUCOSE mg/dL 132* 134* -- 130* 223* GLUCOSE mg/dL -- -- 116* -- -- Results from last 7 days Lab Units 01/31/25 1111 AST unit/L 7* ALT unit/L 11 Recent Results (from the past week) Culture urine Collection Time: 01/31/25 4:00 PM Specimen: Urine, Clean Catch Result Value Ref Range Culture, Urine >100,000 CFU/mL Escherichia coli (A) Susceptibility Escherichia coli - ALEXEY Amoxicillin/Clavulanate Susceptible ug/ml Ampicillin/Sulbactam Susceptible ug/ml Piperacillin/Tazobactam Susceptible ug/ml Cefazolin (Urine) Susceptible ug/ml Cefoxitin Susceptible ug/ml Ceftazidime Susceptible ug/ml Ceftriaxone Susceptible ug/ml Cefepime Susceptible ug/ml Meropenem Susceptible ug/ml Amikacin Susceptible ug/ml Gentamicin Susceptible ug/ml Ciprofloxacin Susceptible ug/ml Levofloxacin Susceptible ug/ml Nitrofurantoin Susceptible ug/ml Trimethoprim/Sulfamethoxazole Susceptible ug/ml Blood Culture, Peripheral Draw #2 Collection Time: 01/31/25 6:27 PM Specimen: Blood, Venous Result Value Ref Range Culture, Blood No growth at 2 days Blood Culture, Peripheral Draw #1 Collection Time: 01/31/25 6:38 PM Specimen: Blood, Venous Result Value Ref Range Culture, Blood No growth at 2 days Respiratory virus panel molecular study Collection Time: 01/31/25 6:38 PM Specimen: Nares; Swab Result Value Ref Range Adenovirus Detection by PCR Not Detected Not Detected Influenza A PCR Not Detected Not Detected Influenza B PCR Not Detected Not Detected Coronavirus 229E Not Detected Not Detected Coronavirus HKU1 Not Detected Not Detected Coronavirus OC43 Not Detected Not Detected Coronavirus NL63 Not Detected Not Detected Parainfluenza Virus 1 Not Detected Not Detected Parainfluenza Virus 2 Not Detected Not Detected Parainfluenza Virus 3 Not Detected Not Detected Parainfluenza Virus 4 Not Detected Not Detected RSV PCR Not Detected Not Detected Human Metapneumovirus A and B Not Detected Not Detected Rhinovirus/Enterovirus Not Detected Not Detected Bordetella pertussis Not Detected Not Detected Bordetella parapertussis Not Detected Not Detected Mycoplasma pneumo by PCR Not Detected Not Detected Chlamydia pneumoniae Not Detected Not Detected SARS COV-2 Not Detected Not Detected Legionella antigen urine, EIA Collection Time: 02/02/25 11:12 AM Result Value Ref Range Legionella Antigen, Ur Negative Negative MRSA molecular study Collection Time: 02/02/25 11:13 AM Specimen: Nares; Swab Result Value Ref Range MRSA Screen PCR Not Detected Not Detected Imaging: XR Chest 1 View Narrative: PROCEDURE: AP chest radiograph. HISTORY: infection. COMPARISON: 02/01/2025. FINDINGS: Stable line and and scarring in the upper left lung. Mild diffuse interstitial prominence is improved, possibly improving interstitial edema. Atherosclerotic calcification of the aorta. Unchanged cardiomediastinal contours. No pneumothorax. Degenerative changes of the spine. Impression: Decreased interstitial prominence suspected to represent improving interstitial edema. -------- FINAL REPORT -------- Dictated By: Uziel Kaplan Dictated Date: 02/03/2025 11:34 ET Assigned Physician: Uziel Kaplan Reviewed and Electronically Signed By: Uziel Kaplan Signed Date: 02/03/2025 11:35 ET Workstation ID: [id number] Transcribed By: Self Edit Transcribed Date: 02/03/2025 11:34 ET ASSESSMENT & PLAN 79-year-old female with PMH of lung cancer s/p left upper lobectomy 2019 s/p chemotherapy and radiation, recently seen by neurology at [facility] for new brain mass s/p right suboccipital craniotomy on 12/03/2024, NIDDM, HFrEF, CKD, and hyperlipidemia presents to the ED after being found on the ground, unwitnessed fall. Severe sepsis on admission Acute respiratory failure with hypoxia on admission Questionable community-acquired pneumonia Also found to have a urinary tract infection urine culture growing E. coli Patient initially on admission was febrile with tachycardia and hypoxic. She was placed on oxygen and was given IV fluids and albumin. She was initially started on ceftriaxone and azithromycin. Given immunocompromise status and history of lung cancer And urine cultures growing E. coli will switch her antibiotics to IV Zosyn and vancomycin Will do a MRSA swab if negative can DC vancomycin Blood cultures have been negative. Appreciate ID recommendations Vancomycin discontinued as MRSA was negative Urine culture is growing E. coli we will switch her from IV Zosyn to IV ceftriaxone at this time. Syncope and collapse likely in the setting of infection and dehydration and sepsis. Acute on chronic heart failure with reduced ejection fraction. Flash pulmonary edema History of HFrEF patient was given IV fluids and was started on IV fluids and was also given albumin Patient went into flash pulmonary edema on 02/01/2025. Chest x-ray done and looks like has right-sided pulmonary vascular congestion. IV fluids were discontinued. Patient was on IV Lasix 40 mg twice daily. -1.6 L since yesterday. Weight is down 2 kg. Patient on Entresto which has been held until now because of increased creatinine Patient was on high flow oxygen now weaned off and is on 2 L nasal cannula. Elevated troponins likely from demand ischemia Patient denies any chest pain. Echo done showed reduced systolic function and ejection fraction of 40 to 45%. Hypokinesis of the basal to mid inferior wall and inferoseptal kelley. Grade 2 LV diastolic dysfunction. No significant valvular disease. When compared to the report done in November 2024 LVEF has improved. Continue with Lasix. Patient on Toprol. Entresto and spironolactone held at this time because increased creatinine. Will continue to monitor creatinine levels. History of lung cancer with metastasis follows by Dr. Faye status post left upper lobectomy and mediastinal lymphadenectomy [id number] treated with radiation and chemotherapy On 11/30/2024 patient was found to have brain mass with hydrocephalus with effacement of fourth ventricle and underwent right suboccipital craniotomy on 12/03/2024 Anemia likely chronic disease continue to monitor no signs of blood loss at this time. Transfuse ifhemoglobin less than 7 Hemoglobin 6.1 on 02/03/2025. Was transfused 2 units of blood and her hemoglobin is 10.1 today. JP on CKD initially likely because of sepsis Patient because of JP was prerenal Later most likely because of hypervolemia creatinine is trending down. It was 1.95 today. On p.o. Lasix Type 2 diabetes holding her home meds will start her on Lantus and insulin sliding scale Hyperlipidemia on statins PT to see patient today. DVT Prophylaxis and be started on subcu heparin Full Code - Default Disposition PT evaluation today. Likely will need rehab. Updated brother Davian about patient's condition * Yue Forduma - 02/05/2025 9:36 AM EDT SPIRITUAL CARE Date/Time:02/05/25 at 9:36 AM EDT Type of Visit: Initial Visit and [employer] Reason for Visit: Spiritual/Emotional Support and Spiritual Assessment Time Spent: 20 Minutes Location: [address] [place] [address] Sacramental Encounters: Sacrament of Sick-Anointing: Anointed Spiritual Distress Assessment: Spiritual Distress Assessment at beginning of visit Meaning - Overall Life Balance: No evidence of unmet spiritual need Transcendence: No evidence of unmet spiritual need Values - Acknowledgement: No evidence of unmet spiritual need Values - Control: No evidence of unmet spiritual need Psycho-Social Identity: No evidence of unmet spiritual need SDAT Beginning of Visit Average Score: 0 Spiritual Distress Assessment at end of visit Meaning - Overall Life Balance: No evidence of unmet spiritual need Transcendence: No evidence of unmet spiritual need Values - Acknowledgement: No evidence of unmet spiritual need Values - Control: No evidence of unmet spiritual need Psycho-Social Identity: No evidence of unmet spiritual need SDAT End of Visit Average Score: 0 Spiritual Assessment/Distress Spiritual Care Assessment: Assessment: Anjana, was awake, alert, lying down in bed resting at the time of visit. Voiced how shewas feeling. Hopeful with care plan to get well again. Happy to have received palm on Palm Wednesday. Voiced its significance. Voiced being supported by family. Expressed desire to receive anointing of the sick. Prayed for recovery and good health. Thankful for the visit and support. Intervention: NE Spiritual Care Interventions : provided support, explored hope, listened empathically, and provided ritual Outcomes: expressed gratitude and expressed peace Plan of Care: Visit as needed *Reference: Spiritual Distress Assessment Tool: The SDAT is a clinical tool used by chaplains to identify unmet spiritual and emotional needs that can impact Goals of Care in the following categories: Spiritual Distress Assessment Legend Spiritual Needs Related Questions Meaning Are you having difficulties coping with what is happening to your now? Does your hospitalization have any repercussions on the way you live usually? Transcendence Do you have a particular oriental orthodox, mary, or spirituality? Is your oriental orthodox/spirituality/mary challenged by what is happening to you now? Values Do you think that the health professionals caring for you know you well enough? Do you feel that you are participating in the decisions made about your care? Psycho-Social Identity Do you have any worries or difficulties regarding your family or other persons close to you? Do you feel lonely? Do you have links to your mary community? SCALE 0= no evidence of unmet spiritual needs 1= some evidence of unmet spiritual needs 2= substantial evidence of unmet spiritual needs 3= evidence of severe unmet spiritual needs * Antonia Chapin MD - 02/04/2025 12:26 PM EDT Images from the original note were not included. [place] PROGRESS NOTE Date: 02/04/2025 Author: Antonia Chapin MD Patient ID: Anjana Wallace is a 79 y.o. female : 1945 MR#: [id number] 01/31/2025 SUBJECTIVE Patient seen and examined today. Patient awake still continues to be on high flow oxygen with FiO2 40%. Patient mentions that having some difficulty in breathing. No overnight events. Patient's bloodpressure better today. She received 2 units of blood yesterday. Scheduled Medications PRN Medications IV Medications acetaminophen, 1,000 mg, q8h HERNÁN aspirin, 81 mg, Daily atorvastatin, 40 mg, Daily furosemide, 40 mg, BID 07-11 [Held by provider] furosemide, 20 mg, BID 07-11 gabapentin, 100 mg, TID insulin glargine, 10 Units, Nightly insulin lispro, 2-12 Units, Before meals & nightly ipratropium-albuteroL, 3 mL, 4x daily isosorbide mononitrate, 30 mg, Daily metoprolol tartrate, 25 mg, q6h morphine, 2 mg, Once piperacillin-tazobactam, 3.375 g, q8h [Held by provider] sacubitriL-valsartan, 1 tablet, BID [Held by provider] spironolactone, 12.5 mg, Daily benzonatate, 100 mg, TID PRN bisacodyL, 10 mg, Daily PRN dextromethorphan-guaiFENesin, 10 mL, q4h PRN dextrose 50%, 12.5 g, q15 min PRN dextrose 50%, 25 g, q15 min PRN dextrose, 15 g, q15 min PRN dextrose, 30 g, q15 min PRN glucagon injection, 1 mg, Once PRN ipratropium-albuteroL, 3 mL, q6h PRN sodium chloride, 42 mL/hr, PRN sodium chloride, 42 mL/hr, PRN OBJECTIVE Vitals: 02/04/25 0656 02/04/25 0731 02/04/25 1103 02/04/25 1117 BP: 136/63 119/66 BP Location: Left arm Left arm Patient Position: Lying Lying Pulse: 87 83 Resp: 14 19 Temp: 36 ??C (96.8 ??F) 36.1 ??C (96.9 ??F) TempSrc: Temporal Temporal SpO2: 92% 95% 94% 97% Weight: Height: Intake/Output Summary (Last 24 hours) at 02/04/2025 1226 Last data filed at 02/04/2025 0351 Gross per 24 hour Intake 1682.91 ml Output 1475 ml Net 207.91 ml Wt Readings from Last 1 Encounters: 02/04/25 0351 69 kg (152 lb 3.2 oz) 02/03/25 0600 70.9 kg (156 lb 4.8 oz) 02/02/25 0745 63.7 kg (140 lb 8 oz) 02/02/25 0700 63.7 kg (140 lb 8 oz) 02/02/25 0600 63.9 kg (140 lb 12.8 oz) 01/31/25 1112 64.4 kg (142 lb) PHYSICAL EXAM: Gen: Alert oriented x 3, on high flow oxygen FiO2 40%. CV -Tachy , No MRG Lungs -Crackles present on right side Abd - Soft, non-tender, non-distended Extremities - No LE edema Neuro - AO x3 RESULTS: CBC BMP Results from last 7 days Lab Units 02/04/25 0649 02/03/25 1543 02/03/25 0656 02/02/25 0419 02/01/25 1636 WBC AUTO K/mcL 7.8 -- 7.4 7.7 14.6* HEMOGLOBIN g/dL 8.6* 7.1* 6.1* 7.1* 7.8* HEMATOCRIT % 27.9* 24.0* 20.8* 23.8* 25.9* PLATELETS K/mcL 281 -- 282 312 371 LYMPHS PCT AUTO % 12.1 -- 13.0 13.3 4.0 MONO PCT AUTO % 11.5 -- 12.7 12.3 8.5 EOS PCT AUTO % 10.1 -- 2.0 0.8 0.1 Results from last 7 days Lab Units 02/04/25 0649 02/03/25 0656 02/02/25 0419 02/01/25 1628 02/01/25 0542 01/31/25 1111 SODIUM mmol/L 136 137 140 137 < > 134 POTASSIUM mmol/L 3.5 3.9 3.9 4.5 < > 4.4 CHLORIDE mmol/L 106 107 107 106 < > 103 CO2 mmol/L 24 21 23 22 < > 23 ANION GAP 6 9 10 9 < > 8 BUN mg/dL 26* 27* 21 21 < > 21 CREATININE mg/dL 1.99* 2.01* 1.76* 1.79* < > 1.73* CALCIUM mg/dL 8.0* 8.0* 8.3* 8.1* < > 8.2* MAGNESIUM mg/dL -- 2.1 2.3 2.3 -- 1.8* < > = values in this interval not displayed. Results from last 7 days Lab Units 02/04/25 1104 02/04/25 0727 02/04/25 0649 02/03/25201202/03/25 1516 POCT GLUCOSE mg/dL 206* 96 -- 317* 239* GLUCOSE mg/dL -- -- 82 -- -- Results from last 7 days Lab Units 01/31/25 1111 AST unit/L 7* ALT unit/L 11 Recent Results (from the past week) Culture urine Collection Time: 01/31/25 4:00 PM Specimen: Urine, Clean Catch Result Value Ref Range Culture, Urine >100,000 CFU/mL Escherichia coli (A) Susceptibility Escherichia coli - ALEXEY Amoxicillin/Clavulanate Susceptible ug/ml Ampicillin/Sulbactam Susceptible ug/ml Piperacillin/Tazobactam Susceptible ug/ml Cefazolin (Urine) Susceptible ug/ml Cefoxitin Susceptible ug/ml Ceftazidime Susceptible ug/ml Ceftriaxone Susceptible ug/ml Cefepime Susceptible ug/ml Meropenem Susceptible ug/ml Amikacin Susceptible ug/ml Gentamicin Susceptible ug/ml Ciprofloxacin Susceptible ug/ml Levofloxacin Susceptible ug/ml Nitrofurantoin Susceptible ug/ml Trimethoprim/Sulfamethoxazole Susceptible ug/ml Blood Culture, Peripheral Draw #2 Collection Time: 01/31/25 6:27 PM Specimen: Blood, Venous Result Value Ref Range Culture, Blood No growth at 2 days Blood Culture, Peripheral Draw #1 Collection Time: 01/31/25 6:38 PM Specimen: Blood, Venous Result Value Ref Range Culture, Blood No growth at 2 days Respiratory virus panel molecular study Collection Time: 01/31/25 6:38 PM Specimen: Nares; Swab Result Value Ref Range Adenovirus Detection by PCR Not Detected Not Detected Influenza A PCR Not Detected Not Detected Influenza B PCR Not Detected Not Detected Coronavirus 229E Not Detected Not Detected Coronavirus HKU1 Not Detected Not Detected Coronavirus OC43 Not Detected Not Detected Coronavirus NL63 Not Detected Not Detected Parainfluenza Virus 1 Not Detected Not Detected Parainfluenza Virus 2 Not Detected Not Detected Parainfluenza Virus 3 Not Detected Not Detected Parainfluenza Virus 4 Not Detected Not Detected RSV PCR Not Detected Not Detected Human Metapneumovirus A and B Not Detected Not Detected Rhinovirus/Enterovirus Not Detected Not Detected Bordetella pertussis Not Detected Not Detected Bordetella parapertussis Not Detected Not Detected Mycoplasma pneumo by PCR Not Detected Not Detected Chlamydia pneumoniae Not Detected Not Detected SARS COV-2 Not Detected Not Detected Legionella antigen urine, EIA Collection Time: 02/02/25 11:12 AM Result Value Ref Range Legionella Antigen, Ur Negative Negative MRSA molecular study Collection Time: 02/02/25 11:13 AM Specimen: Nares; Swab Result Value Ref Range MRSA Screen PCR Not Detected Not Detected Imaging: XR Chest 1 View Narrative: PROCEDURE: AP chest radiograph. HISTORY: infection. COMPARISON: 02/01/2025. FINDINGS: Stable line and and scarring in the upper left lung. Mild diffuse interstitial prominence is improved, possibly improving interstitial edema. Atherosclerotic calcification of the aorta. Unchanged cardiomediastinal contours. No pneumothorax. Degenerative changes of the spine. Impression: Decreased interstitial prominence suspected to represent improving interstitial edema. -------- FINAL REPORT -------- Dictated By: Uziel Kaplan Dictated Date: 02/03/2025 11:34 ET Assigned Physician: Uziel Kaplan Reviewed and Electronically Signed By: Uziel Kaplan Signed Date: 02/03/2025 11:35 ET Workstation ID: [id number] Transcribed By: Self Edit Transcribed Date: 02/03/2025 11:34 ET ASSESSMENT & PLAN 79-year-old female with PMH of lung cancer s/p left upper lobectomy 2019 s/p chemotherapy and radiation, recently seen by neurology at [facility] for new brain mass s/p right suboccipital craniotomy on 12/03/2024, NIDDM, HFrEF, CKD, and hyperlipidemia presents to the ED after being found on the ground, unwitnessed fall. Severe sepsis on admission Acute respiratory failure with hypoxia on admission Questionable community-acquired pneumonia Also found to have a urinary tract infection urine culture growing E. coli Patient initially on admission was febrile with tachycardia and hypoxic. She was placed on oxygen and was given IV fluids and albumin. She was initially started on ceftriaxone and azithromycin. Given immunocompromise status and history of lung cancer And urine cultures growing E. coli will switch her antibiotics to IV Zosyn and vancomycin Will do a MRSA swab if negative can DC vancomycin Blood cultures have been negative. Appreciate ID recommendations Vancomycin discontinued as MRSA was negative Syncope and collapse likely in the setting of infection and dehydration and sepsis. Acute on chronic heart failure with reduced ejection fraction. Flash pulmonary edema History of HFrEF patient was given IV fluids and was started on IV fluids and was also given albumin Patient went into flash pulmonary edema on 02/01/2025. Chest x-ray done and looks like has right-sided pulmonary vascular congestion. Will discontinue all her IV fluids she will be on fluid restriction strict I's and O's and daily weights To be on IV Lasix 40 mg twice daily continue to monitor. Transition to oral Lasix tomorrow. Patient was on BiPAP did a lot better Patient on Entresto which has been held until now because of increased creatinine and low blood pressure. Patient on high flow oxygen we will try to wean her off Elevated troponins likely from demand ischemia Patient denies any chest pain. Echo done showed reduced systolic function and ejection fraction of 40 to 45%. Hypokinesis of the basal to mid inferior wall and inferoseptal kelley. Grade 2 LV diastolic dysfunction. No significant valvular disease. When compared to the report done in November 2024 LVEF has improved. Continue with Lasix. Patient on Toprol. Entresto and spironolactone held at this time because increased creatinine. Will continue to monitor creatinine levels. History of lung cancer with metastasis follows by Dr. Faye status post left upper lobectomy and mediastinal lymphadenectomy [id number] treated with radiation and chemotherapy On 11/30/2024 patient was found to have brain mass with hydrocephalus with effacement of fourth ventricle and underwent right suboccipital craniotomy on 12/03/2024 Anemia likely chronic disease continue to monitor no signs of blood loss at this time. Transfuse ifhemoglobin less than 7 Check anemia labs Hemoglobin 6.1 on 02/03/2025. Was transfused 2 units of blood and her hemoglobin is 8.6 today. JP on CKD initially likely because of sepsis was on IV fluids we will continue to trend her creatinine Creatinine worsening will continue with diuretics. Mild improvement in creatinine. Type 2 diabetes holding her home meds will start her on Lantus and insulin sliding scale Hyperlipidemia on statins PT to see patient once stable DVT Prophylaxis low hgb , SCD Full Code - Default Disposition continue to be on telemetry for now. Updated brother Davian about patient's condition Continues to be on high flow oxygen. * Jamari Oliva MD - 02/04/2025 11:55 AM EDT Images from the original note were not included. [facility] Cardiology- Cardiology Follow-up Note PATIENT NAME: Anjana Wallace ([id number]) ASSESSMENT & PLAN Principal Problem: Syncope and collapse HFrEF: Patient has a history of HFrEF actual ejection fraction is improved substantially compared to previous echocardiogram from November. EF now in the 40% range. Unfortunately patient has not been able to tolerate Entresto or spironolactone at this time moderate renal insufficiency with a creatinine of approximately 2.0. Blood pressure approximately 120 systolic. If renal function becomes a limiting factor and guideline directed therapy may need to substitute other therapies for the Entresto for afterload reduction. Chest x-ray yesterday showed decreased interstitial edema Atrial fibrillation: No further atrial fibrillation identified other than the one episode that occurred during her period of pulmonary edema Patient still remains on IV Lasix for diuresis. May be able to be switched to p.o. by tomorrow. Elevated cardiac biomarkers. Patient elevated troponin on admission most likely secondary to decompensated systolic heart failure. Uncertain as to what her coronary status is but at this point there is no indication of need for diagnostic cath. [facility] CARDIOLOGY RECOMMENDATIONS: As per above SUBJECTIVE 79-year-old patient with a history of adenocarcinoma of the lung status post left upper lobectomy followed by chemo and radiation therapy with cerebellar metastasis status post suboccipital craniotomy with resection. History of HFrEF. Presents with respiratory failure and pneumonia not necessarily secondary to heart failure. Mildly hypotensive on admission guideline directed therapy had to be held. Patient still on high flow oxygen. During hospitalization patient is a brief episode of atrial fibrillation in the setting of sudden pulmonary edema and hypertension. Echo showed EF of 40 to 45% with grade 2 diastolic dysfunction. Actually improved compared to previous echocardiogram. The patient exhibited no further atrial fibrillation on telemetry monitoring. She still requires high flow oxygen is still somewhat dyspneic complains of no chest pain or discomfort guideline directed therapy is on hold Entresto and spironolactone are both being held at this time. Patient is back on beta-kaitlyn patient is also on IV diuretic therapy received a unit of blood secondary to hemoglobin of 7. Patient denies chest pain or pressure. I's and O's are slightly positivebecause the transfusion the patient is able to lay flat in bed but still has high O2 requirements. REVIEW OF SYSTEMS (ROS): Negative except as mentioned in the HPI. PAST MEDICAL HISTORY She has no past medical history on file. PAST SURGICAL HISTORY She has no past surgical history on file. SOCIAL HISTORY Tob: reports that she has quit smoking. Her smoking use included cigarettes. She does not have any smokeless tobacco history on file. ETOH: has no history on file for alcohol use. Drug: has no history on file for drug use. FAMILY HISTORY She family history is not on file. MEDICATIONS: SCHEDULED MEDICATIONS: acetaminophen, 1,000 mg, oral, q8h HERNÁN aspirin, 81 mg, oral, Daily atorvastatin, 40 mg, oral, Daily furosemide, 40 mg, intravenous, BID 07-11 [Held by provider] furosemide, 20 mg, oral, BID 07-11 gabapentin, 100 mg, oral, TID insulin glargine, 10 Units, subcutaneous, Nightly insulin lispro, 2-12 Units, subcutaneous, Before meals & nightly ipratropium-albuteroL, 3 mL, nebulization, 4x daily isosorbide mononitrate, 30 mg, oral, Daily metoprolol tartrate, 25 mg, oral, q6h morphine, 2 mg, intravenous, Once piperacillin-tazobactam, 3.375 g, intravenous, q8h [Held by provider] sacubitriL-valsartan, 1 tablet, oral, BID [Held by provider] spironolactone, 12.5 mg, oral, Daily PRN MEDICATIONS: PRN medications: benzonatate, bisacodyL, dextromethorphan-guaiFENesin, dextrose 50%, dextrose 50%, dextrose, dextrose, glucagon injection, ipratropium- albuteroL, sodium chloride, sodium chloride DRIPS: ALLERGIES: She has No Known Allergies. OBJECTIVE Vitals: 02/04/25 1117 BP: Pulse: Resp: Temp: SpO2: 97% Body mass index is 28.77 kg/m??. PHYSICAL EXAMINATION: APPEARANCE: Alert and in no acute distress EYES: PERRL, conjunctiva and sclera normal EARS: External ears normal. NOSE/SINUS: Nares normal. Septum midline. Mucosa normal. No drainage or sinus tenderness. MOUTH/THROAT: no erythema or exudates NECK: JVP less then 8cm H2O, No bruits., Neck supple, no adenopathy, thyroid symmetric and of normal size HEART: RRR with normal S1 and S2, no murmurs, no gallops, no JVD appreciated CHEST: non-tender LUNGCoarsae ronchi ABDOMEN: Bowel sounds normoactive, no bruits, soft, non-tender, without organomegaly or palpable masses EXTREMITIES: Extremities warm and well perfused without clubbing, cyanosis, or edema NEURO: Awake, alert and oriented x 3, no gross focal abnormalities PSYCH: Appropriate, calm SKIN: Skin color, texture, turgor normal. No rashes or lesions. CARDIOVASCULAR TESTING Sinus rhythm on monitor Thank you for allowing us to participate in this consultation. Please feel free to contact us with questions or concerns. We will 30 minutes was spent reviewing the medical record, imaging, labs, and seeing the patient which included explaining relevant diagnosis, providing patient education, discussing treatment options, in addition to documenting in the record. [facility] [address] [place] [address], [address] [place] [address] * Bala Poe RN - 02/04/2025 1:46 AM EDT Goals: Problem: Cognitive: Manda Dl Fall Risk Goal: Last Known Fall Outcome: Progressing Problem: Cognitive: Manda Lizama Fall Risk Goal: Mobility requiring assistance of person or device Outcome: Progressing Problem: Cognitive: Manda Lizama Fall Risk Goal: Mental Status/LOC/Awareness Outcome: Progressing Problem: Cognitive: Gas Exchange Impairment Goal: Understanding of the causes for impaired gas exchange will improve Outcome: Progressing Identify possible barriers to meeting goals/advancing plan of care: impaired gas echange Stability of the patient: Moderately Unstable - Medium risk of patient condition declining or worsening End of Shift Summary: pt adhere to treatment plan, tolerated all meds with no issues. Pt remain on high flow 20l-40% Fi02 oxygen saturation remain WNL. Pt denies pain no sob/resp distress. Pt has a dry hacky cough prn medication was given and has been effective for a small amount of time. Pt is on bed rest anderson in places, bedpan uses as needed for bowel movement. Pt is sinus rhythm on the monitor. Virtual monitor in place for safety. Care ongoing at this time. * Antonia Chapin MD - 02/03/2025 12:44 PM EDT Images from the original note were not included. [place] PROGRESS NOTE Date: 02/03/2025 Author: Antonia Chapin MD Patient ID: Anjana Wallace is a 79 y.o. female : 1945 MR#: [id number] 01/31/2025 SUBJECTIVE Patient seen and examined today. Patient is awake and alert. Overnight she was put on high flow oxygen. Patient thinks that she is feeling fine. Is a little confused to me. Found to have low hemoglobin today. No active bleeding going on. Will transfuse her today Scheduled Medications PRN Medications IV Medications acetaminophen, 1,000 mg, q8h HERNÁN aspirin, 81 mg, Daily atorvastatin, 40 mg, Daily [Held by provider] furosemide, 40 mg, BID 07-11 [Held by provider] furosemide, 20 mg, BID 07-11 gabapentin, 100 mg, TID insulin glargine, 10 Units, Nightly insulin lispro, 2-12 Units, Before meals & nightly ipratropium-albuteroL, 3 mL, 4x daily isosorbide mononitrate, 30 mg, Daily metoprolol tartrate, 25 mg, q6h morphine, 2 mg, Once piperacillin-tazobactam, 3.375 g, q8h [Held by provider] sacubitriL-valsartan, 1 tablet, BID [Held by provider] spironolactone, 12.5 mg, Daily benzonatate, 100 mg, TID PRN bisacodyL, 10 mg, Daily PRN dextromethorphan-guaiFENesin, 10 mL, q4h PRN dextrose 50%, 12.5 g, q15 min PRN dextrose 50%, 25 g, q15 min PRN dextrose, 15 g, q15 min PRN dextrose, 30 g, q15 min PRN glucagon injection, 1 mg, Once PRN ipratropium-albuteroL, 3 mL, q6h PRN sodium chloride, 42 mL/hr, PRN OBJECTIVE Vitals: 02/03/25 1214 02/03/25 1216 02/03/25 1230 02/03/25 1236 BP: (!) 118/46 (!) 118/46 106/54 106/54 BP Location: Patient Position: Pulse: 84 84 85 85 Resp: Temp: 36.4 ??C (97.6 ??F) 36.4 ??C (97.6 ??F) 36.8 ??C (98.2 ??F) 36.8 ??C (98.2 ??F) TempSrc: Temporal Temporal SpO2: 97% 91% Weight: Height: Intake/Output Summary (Last 24 hours) at 02/03/2025 1244 Last data filed at 02/03/2025 0635 Gross per 24 hour Intake 500 ml Output 1450 ml Net -950 ml Wt Readings from Last 1 Encounters: 02/03/25 0600 70.9 kg (156 lb 4.8 oz) 02/02/25 0745 63.7 kg (140 lb 8 oz) 02/02/25 0700 63.7 kg (140 lb 8 oz) 02/02/25 0600 63.9 kg (140 lb 12.8 oz) 01/31/25 1112 64.4 kg (142 lb) PHYSICAL EXAM: Gen: Alert oriented x 3, on Oxyegn CV -Tachy , No MRG Lungs -Crackles present on right side Abd - Soft, non-tender, non-distended Extremities - No LE edema Neuro - AO x3 RESULTS: CBC BMP Results from last 7 days Lab Units 02/03/25 0656 02/02/25 0419 02/01/25 1636 02/01/25 0542 01/31/25 1111 WBC AUTO K/mcL 7.4 7.7 14.6* 8.3 6.1 HEMOGLOBIN g/dL 6.1* 7.1* 7.8* 7.2* 7.9* HEMATOCRIT % 20.8* 23.8* 25.9* 23.7* 26.0* PLATELETS K/mcL 282 312 371 304 337 LYMPHS PCT AUTO % 13.0 13.3 4.0 -- 18.8 MONO PCT AUTO % 12.7 12.3 8.5 -- 12.4 EOS PCT AUTO % 2.0 0.8 0.1 -- 3.8 Results from last 7 days Lab Units 02/03/25 0656 02/02/25 0419 02/01/25 1628 02/01/25 0542 01/31/25 1111 SODIUM mmol/L 137 140 137 134 134 POTASSIUM mmol/L 3.9 3.9 4.5 4.2 4.4 CHLORIDE mmol/L 107 107 106 105 103 CO2 mmol/L 21 23 22 24 23 ANION GAP 9 10 9 5 8 BUN mg/dL 27* 21 21 18 21 CREATININE mg/dL 2.01* 1.76* 1.79* 1.44* 1.73* CALCIUM mg/dL 8.0* 8.3* 8.1* 8.2* 8.2* MAGNESIUM mg/dL 2.1 2.3 2.3 -- 1.8* Results from last 7 days Lab Units 02/03/25 1140 02/03/25 0949 02/03/25 0656 02/02/25 1946 02/02/25 1552 POCT GLUCOSE mg/dL 202* 159* -- 319* 295* GLUCOSE mg/dL -- -- 188* -- -- Results from last 7 days Lab Units 01/31/25 1111 AST unit/L 7* ALT unit/L 11 Recent Results (from the past week) Culture urine Collection Time: 01/31/25 4:00 PM Specimen: Urine, Clean Catch Result Value Ref Range Culture, Urine >100,000 CFU/mL Escherichia coli (A) Susceptibility Escherichia coli - ALEXEY Amoxicillin/Clavulanate Susceptible ug/ml Ampicillin/Sulbactam Susceptible ug/ml Piperacillin/Tazobactam Susceptible ug/ml Cefazolin (Urine) Susceptible ug/ml Cefoxitin Susceptible ug/ml Ceftazidime Susceptible ug/ml Ceftriaxone Susceptible ug/ml Cefepime Susceptible ug/ml Meropenem Susceptible ug/ml Amikacin Susceptible ug/ml Gentamicin Susceptible ug/ml Ciprofloxacin Susceptible ug/ml Levofloxacin Susceptible ug/ml Nitrofurantoin Susceptible ug/ml Trimethoprim/Sulfamethoxazole Susceptible ug/ml Blood Culture, Peripheral Draw #2 Collection Time: 01/31/25 6:27 PM Specimen: Blood, Venous Result Value Ref Range Culture, Blood No growth at 2 days Blood Culture, Peripheral Draw #1 Collection Time: 01/31/25 6:38 PM Specimen: Blood, Venous Result Value Ref Range Culture, Blood No growth at 2 days Respiratory virus panel molecular study Collection Time: 01/31/25 6:38 PM Specimen: Nares; Swab Result Value Ref Range Adenovirus Detection by PCR Not Detected Not Detected Influenza A PCR Not Detected Not Detected Influenza B PCR Not Detected Not Detected Coronavirus 229E Not Detected Not Detected Coronavirus HKU1 Not Detected Not Detected Coronavirus OC43 Not Detected Not Detected Coronavirus NL63 Not Detected Not Detected Parainfluenza Virus 1 Not Detected Not Detected Parainfluenza Virus 2 Not Detected Not Detected Parainfluenza Virus 3 Not Detected Not Detected Parainfluenza Virus 4 Not Detected Not Detected RSV PCR Not Detected Not Detected Human Metapneumovirus A and B Not Detected Not Detected Rhinovirus/Enterovirus Not Detected Not Detected Bordetella pertussis Not Detected Not Detected Bordetella parapertussis Not Detected Not Detected Mycoplasma pneumo by PCR Not Detected Not Detected Chlamydia pneumoniae Not Detected Not Detected SARS COV-2 Not Detected Not Detected Legionella antigen urine, EIA Collection Time: 02/02/25 11:12 AM Result Value Ref Range Legionella Antigen, Ur Negative Negative MRSA molecular study Collection Time: 02/02/25 11:13 AM Specimen: Nares; Swab Result Value Ref Range MRSA Screen PCR Not Detected Not Detected Imaging: XR Chest 1 View Narrative: PROCEDURE: AP chest radiograph. HISTORY: infection. COMPARISON: 02/01/2025. FINDINGS: Stable line and and scarring in the upper left lung. Mild diffuse interstitial prominence is improved, possibly improving interstitial edema. Atherosclerotic calcification of the aorta. Unchanged cardiomediastinal contours. No pneumothorax. Degenerative changes of the spine. Impression: Decreased interstitial prominence suspected to represent improving interstitial edema. -------- FINAL REPORT -------- Dictated By: Uziel Kaplan Dictated Date: 02/03/2025 11:34 ET Assigned Physician: Uziel Kaplan Reviewed and Electronically Signed By: Uziel Kaplan Signed Date: 02/03/2025 11:35 ET Workstation ID: [id number] Transcribed By: Self Edit Transcribed Date: 02/03/2025 11:34 ET ASSESSMENT & PLAN 79-year-old female with PMH of lung cancer s/p left upper lobectomy 2019 s/p chemotherapy and radiation, recently seen by neurology at [facility] for new brain mass s/p right suboccipital craniotomy on 12/03/2024, NIDDM, HFrEF, CKD, and hyperlipidemia presents to the ED after being found on the ground, unwitnessed fall. Severe sepsis on admission Acute respiratory failure with hypoxia on admission Questionable community-acquired pneumonia Also found to have a urinary tract infection urine culture growing E. coli Patient initially on admission was febrile with tachycardia and hypoxic. She was placed on oxygen and was given IV fluids and albumin. She was initially started on ceftriaxone and azithromycin. Given immunocompromise status and history of lung cancer And urine cultures growing E. coli will switch her antibiotics to IV Zosyn and vancomycin Will do a MRSA swab if negative can DC vancomycin Blood cultures have been negative. Appreciate ID recommendations Vancomycin discontinued as MRSA was negative Syncope and collapse likely in the setting of infection and dehydration and sepsis. Acute on chronic heart failure with reduced ejection fraction. Flash pulmonary edema History of HFrEF patient was given IV fluids and was started on IV fluids and was also given albumin Patient went into flash pulmonary edema on 02/01/2025. Chest x-ray done and looks like has right-sided pulmonary vascular congestion. Will discontinue all her IV fluids she will be on fluid restriction strict I's and O's and daily weights To be on IV Lasix 40 mg twice daily continue to monitor. Patient was on BiPAP did a lot better Patient on Entresto which has been held because of low blood pressure this morning. Patient on high flow oxygen we will try to wean her off Elevated troponins likely from demand ischemia Patient denies any chest pain. Echo done showed reduced systolic function and ejection fraction of 40 to 45%. Hypokinesis of the basal to mid inferior wall and inferoseptal kelley. Grade 2 LV diastolic dysfunction. No significant valvular disease. When compared to the report done in November 2024 LVEF has improved. Continue with Lasix. Patient on Toprol. Entresto and spironolactone held at this time because of hypotension and increased creatinine History of lung cancer with metastasis follows by Dr. Faye status post left upper lobectomy and mediastinal lymphadenectomy [id number] treated with radiation and chemotherapy On 11/30/2024 patient was found to have brain mass with hydrocephalus with effacement of fourth ventricle and underwent right suboccipital craniotomy on 12/03/2024 Anemia likely chronic disease continue to monitor no signs of blood loss at this time. Transfuse ifhemoglobin less than 7 Check anemia labs Hemoglobin 6.1 today. Will transfuse her 2 units of blood. JP on CKD initially likely because of sepsis was on IV fluids we will continue to trend her creatinine Creatinine worsening will continue with diuretics. Type 2 diabetes holding her home meds will start her on Lantus and insulin sliding scale Hyperlipidemia on statins PT to see patient once stable DVT Prophylaxis low hgb , SCD Full Code - Default Disposition continue to be on telemetry for now. Updated brother Davian about patient's condition Blood transfusion today. * Lesley Razo, CONRAD - 02/03/2025 10:56 AM EDT Images from the original note were not included. Speech Language Pathology [facility] RETORT CONDENSER ATTENDANT BEDSIDE SWALLOW EVALUATION NAME: Anjana Wallace DATE OF : 1945 ROOM: [address] [place] [address] RETORT CONDENSER ATTENDANT Received On: 02/03/25 ASSESSMENT/RECOMMENDATIONS Diet Solids Recommendation: IDDSI Level 7 Easy to Chew Diet Liquids Recommendation: Thin liquids Liquid Administration Via: Cup, Straw Compensatory Swallowing Strategies: Upright as possible for all oral intake, Remain upright for 20-30 minutes after meals, Alternate solids and liquids, Small bites/sips, Eat/feed slowly, Slow rate of intake Recommended Medication Route: PO Recommended Medication Administration: One pill at a time [employer] Required: No TIME IN: 1000 TIME OUT: 1030 TOTAL TIME: 30 min MISSED TIME REASON: FAMILY/CAREGIVER PRESENT: No SUBJECTIVE SUBJECTIVE: Orders acknowledged/received, chart reviewed, and patient cleared by RN for swallow evaluation. Patient was alert and sitting upright in bed on high flow. Pt was oriented x3 and able to follow simple commands. Pt denied difficulty swallowing and reported a regular diet at baseline. Principal Problem: Syncope and collapse Date Noted: 01/31/2025 Resolved Problems: * No resolved hospital problems. * Syncope and collapse [R55] Urinary tract infection without hematuria, site unspecified [N39.0] Acute hypoxic respiratory failure (CMS/[facility] V24, CMS/[facility] V28) [J96.01] No admission procedures for hospital encounter. PAST MEDICAL HISTORY: History reviewed. No pertinent past medical history. PAST SURGICAL HISTORY: History reviewed. No pertinent surgical history. PRIOR LEVEL OF FUNCTIONING: Pt denied difficulty swallowing and reported a regular diet at baseline. IMAGING RESULTS: MRI Brain No results found for this or any previous visit. CT Head Results for orders placed during the hospital encounter of 01/31/25 CT Head wo Contrast Narrative PROCEDURE: Head and cervical spine CT INDICATION: Fall, pain TECHNIQUE: Noncontrast CT of the head and cervical spine with multiplanar reformats. The examination was performed utilizing dose reduction techniques. Total DLP 1473. COMPARISON: None FINDINGS: Head CT: No acute territorial infarct, mass effect, or intracranial hemorrhage. 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 Small bilateral cerebral convexity subdural hygromas measuring 6 mm bilaterally. Diffuse cerebral volume loss with prominence of ventricles, sulci, and cisterns. No hydrocephalus. Visualized paranasal sinuses and mastoid air cells are clear. No scalp hematoma or skull fracture. Bilateral lens implants. Cervical spine CT: No acute fracture or prevertebral swelling. Cervical lordosis is preserved. Multilevel degenerative changes are seen throughout the cervical spine with uncovertebral spurring and facet arthropathy present. No pneumothorax at the lung apices. Inflammatory appearing opacities are noted at the left apex. Paraspinal muscles are within normal limits. Postsurgical changes seen in the right suboccipital region. Right upper paraesophageal lymph node is 11 mm short axis is nonspecific, and not well evaluated on this exam. Impression No acute intracranial abnormality. 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 Small bilateral cerebral convexity subdural hygromas without significant mass effect upon adjacent structures. No acute cervical spine fracture. -------- FINAL REPORT -------- Dictated By: ANAIS TONEY Dictated Date: 01/31/2025 11:55 ET Assigned Physician: ANAIS TONEY Reviewed and Electronically Signed By: ANAIS TONEY Signed Date: 01/31/2025 11:56 ET Workstation ID: [id number] Transcribed By: Self Edit Transcribed Date: 01/31/2025 11:55 ET Chest Portable Results for orders placed during the hospital encounter of 01/31/25 XR Chest 1 View Narrative XR CHEST 1 VIEW INDICATION: SOB, abn CXR, heart failure suspected TECHNIQUE: XR CHEST 1 VIEW COMPARISON: No priors available. Impression FINDINGS/IMPRESSION: Worsening diffuse opacities of right greater than left lungs presumably representing moderate congestive heart failure. Stable cardiomediastinal contours and the left lung postsurgical changes with suprahilar/upper lobe scarring. -------- FINAL REPORT -------- Dictated By: Trung Toure Dictated Date: 02/01/2025 15:10 ET Assigned Physician: Trung Toure Reviewed and Electronically Signed By: Trung Toure Signed Date: 02/01/2025 15:11 ET Workstation ID: [id number] Transcribed By: Self Edit Transcribed Date: 02/01/2025 15:10 ET Chest 2 View Results for orders placed during the hospital encounter of 01/31/25 XR Chest 2 Views Narrative XR CHEST 2 VIEWS INDICATION: general weakness TECHNIQUE: XR CHEST 2 VIEWS COMPARISON: 05/12/2020 Impression FINDINGS/IMPRESSION: Postsurgical changes left lung with new linear left upper lobe opacity could represent scarring, atelectasis or infiltrate. Stable cardiomediastinal contours. No congestive heart failure. Degenerative osseous changes. -------- FINAL REPORT -------- Dictated By: Trung Toure Dictated Date: 01/31/2025 14:53 ET Assigned Physician: Trung Toure Reviewed and Electronically Signed By: Trung Toure Signed Date: 01/31/2025 14:53 ET Workstation ID: [id number] Transcribed By: Self Edit Transcribed Date: 01/31/2025 14:[address] Results for orders placed during the hospital encounter of 01/31/25 CT Angio Chest wo and/or w Contrast Narrative INDICATION: PE suspected, high prob CT angiography [...] upper abdomen is unremarkable. No acute fractures. Impression No pulmonary embolus. Opacities of the left lung concerning for infection. CT chest follow-up is recommended to confirm resolution and exclude pulmonary nodule or mass. Small left pleural effusion. Mildly enlarged subcarinal lymph node. This document has been electronically signed by: Frederick Garcia MD on 01/31/2025 18:10:20 ALLERGIES: No Known Allergies OBJECTIVE OXYGEN THERAPY: Oxygen Therapy: Supplemental oxygen O2 Delivery Method: High flow nasal cannula DYSPHAGIA SYMPTOMS REPORTED BY PATIENT: Denies any swallowing issues NPO: yes CURRENT DIET TEXTURES ORDERED: NPO NPO FEEDING METHOD: Independent ENDURANCE DURING MEALS: To Be Assessed MENTAL STATUS: Alert , Responsive, and Cooperative SWALLOW BASELINE ASSESSMENT: Respiratory Status: High flow nasal cannula History of Intubation: No Behavior/Cognition: Alert, Cooperative, Pleasant mood Dentition: Edentulous Patient Positioning: Upright in bed Baseline Vocal Quality: Within Functional Limits MOTOR SPEECH: Labial ROM: Within Functional Limits Labial Symmetry: Within Functional Limits Lingual Appearance: White coating, Dry Lingual ROM: Within Functional Limits Lingual Symmetry: Within Functional Limits Facial ROM: Within Functional Limits Facial Symmetry: Within Functional Limits Mandible: Within Functional Limits Vocal Quality: Within Functional Limits Intelligibility: Intelligible 100% CONSISTENCIES ASSESSED: Yes Other (Comment): Pt was able to tolerate meds whole w/ water w/ no overt s/s of aspiration. Recommend meds whole w/ water. Thin Presentation: Cup, Straw, Self Fed Oral: Within functional limits Pharyngeal: Within Functional Limits Amount: x1 cup Puree Presentation: Self Fed, Spoon Oral: Within functional limits Pharyngeal: Within Functional Limits Amount: x7 bites Ground/Minced & Moist/ Moist Ground Presentation: Self Fed, Spoon Oral: Within functional limits Pharyngeal: Within Functional Limits Amount: x3 bites Solid/Regular Presentation: Bite, Self Fed Oral: Impaired Mastication, Increased oral transit Pharyngeal: Within Functional Limits Amount: x2 crackers ASSESSMENT/RECOMMENDATIONS ASPIRATION RISK: Diet Solids Recommendation: IDDSI Level 7 Easy to Chew Diet Liquids Recommendation: Thin liquids Liquid Administration Via: Cup, Straw Compensatory Swallowing Strategies: Upright as possible for all oral intake, Remain upright for 20-30 minutes after meals, Alternate solids and liquids, Small bites/sips, Eat/feed slowly, Slow rate of intake Recommended Medication Route: PO Recommended Medication Administration: One pill at a time RETORT CONDENSER ATTENDANT ASSESSMENT: RETORT CONDENSER ATTENDANT Assessment Results: At baseline, Within functional limits Dysphagia Diagnosis: Within Functional Limits Evaluation/Treatment Tolerance: Patient tolerated treatment well Medical Staff Made Aware: Yes Comments: Discuessed w/ RN and message sent to MD CURRENT DIET: Dietary Orders (From admission, onward) Start Ordered 02/03/25 0001 Adult NPO diet Location: [facility]; Diet: NPO- Except for Medications Diet effective midnight Question Answer Comment Location [facility] Diet NPO- Except for Medications 02/02/25 2207 PLAN OF CARE RETORT CONDENSER ATTENDANT PLAN RETORT CONDENSER ATTENDANT Plan: No skilled RETORT CONDENSER ATTENDANT No Skilled RETORT CONDENSER ATTENDANT: Independent with swallowing, At baseline function RETORT CONDENSER ATTENDANT - Evaluation Status: Complete Diet Recommendations: IDDSI 7 easy to chew and thin liquids DISCHARGE RECOMMENDATIONS No Speech-Language Pathology (RETORT CONDENSER ATTENDANT) services/needs at next level of care. EDUCATION Education Documentation Teach aspiration precautions, taught by CONRAD Phan at 02/03/2025 10:56 AM. Learner: Patient Readiness: Acceptance Method: Explanation Response: Verbalizes Understanding Modified Diet Training, taught by CONRAD Phan at 02/03/2025 10:56 AM. Learner: Patient Readiness: Acceptance Method: Explanation Response: Verbalizes Understanding Education Comments No comments found. GOALS Encounter Problems Encounter Problems (Active) There are no active problems. Encounter Problems (Resolved) There are no resolved problems. 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 I have reviewed all documentation for today, 02/03/25 entered by Speech Therapy Fellow, Lesley Razo, and further attest that it is an accurate clinical record of today's encounter, including accurate and appropriate charges. * Jacquelin Montemayor RN - 02/02/2025 11:11 AM EDT 02/02/25 1111 Initial Transition Plan Initial Transition Plan Home Health Care Discharge Planning Living Arrangements Family members Type of Residence Private residence Assistive Devices Walker Support Systems Immediate family Medication Coverage Has Med Coverage Under Insurance Plan Yes Medication Affordability No concerns related to payment for meds Anticipated Discharge Needs Discipline following for SNF placement Data Security Coordinator Informed Choice Informed Choice Given? Yes * Dona Sousa, PharmD - 02/02/2025 11:00 AM EDT Initial Pharmacy Vancomycin Dosing Consultation Consult ordering provider: Antonia Chapin MD 79 y.o. female is being started on vancomycin for PNA for 5 days with a goal trough per Protocol of15 - 20 mg/L. Relevant data Height: 1.549 m (60.98 ) Weight: 63.7 kg (140 lb 8 oz) Temp Readings from Last 3 Encounters: 02/02/25 36.9 ??C (98.5 ??F) (Oral) 01/12/25 36.1 ??C (96.9 ??F) (Temporal) WBC Date Value Ref Range Status 02/02/2025 7.7 4.8 - 10.8 K/mcL Final 02/01/2025 14.6 (H) 4.8 - 10.8 K/mcL Final 02/01/2025 8.3 4.8 - 10.8 K/mcL Final Creatinine Date Value Ref Range Status 02/02/2025 1.76 (H) 0.50 - 1.10 mg/dL Final 02/01/2025 1.79 (H) 0.50 - 1.10 mg/dL Final 02/01/2025 1.44 (H) 0.50 - 1.10 mg/dL Final Estimated Creatinine Clearance: 22.2 mL/min (A) (by C-G formula based on SCr of 1.76 mg/dL (H)). mL/min Cockcroft-Gault Recent Results (from the past week) Culture urine Collection Time: 01/31/25 4:00 PM Specimen: Urine, Clean Catch Result Value Ref Range Culture, Urine >100,000 CFU/mL Escherichia coli (A) Susceptibility Escherichia coli - ALEXEY Amoxicillin/Clavulanate 4 Susceptible ug/ml Ampicillin/Sulbactam <=2 Susceptible ug/ml Piperacillin/Tazobactam <=4 Susceptible ug/ml Cefazolin (Urine) <=1 Susceptible ug/ml Cefoxitin <=4 Susceptible ug/ml Ceftazidime <=0.5 Susceptible ug/ml Ceftriaxone <=0.25 Susceptible ug/ml Cefepime <=0.12 Susceptible ug/ml Meropenem <=0.25 Susceptible ug/ml Amikacin 2 Susceptible ug/ml Gentamicin <=1 Susceptible ug/ml Ciprofloxacin <=0.06 Susceptible ug/ml Levofloxacin <=0.12 Susceptible ug/ml Nitrofurantoin <=16 Susceptible ug/ml Trimethoprim/Sulfamethoxazole <=20 Susceptible ug/ml Blood Culture, Peripheral Draw #2 Collection Time: 01/31/25 6:27 PM Specimen: Blood, Venous Result Value Ref Range Culture, Blood No growth at 24 hours Blood Culture, Peripheral Draw #1 Collection Time: 01/31/25 6:38 PM Specimen: Blood, Venous Result Value Ref Range Culture, Blood No growth at 24 hours Respiratory virus panel molecular study Collection Time: 01/31/25 6:38 PM Specimen: Nares; Swab Result Value Ref Range Adenovirus Detection by PCR Not Detected Not Detected Influenza A PCR Not Detected Not Detected Influenza B PCR Not Detected Not Detected Coronavirus 229E Not Detected Not Detected Coronavirus HKU1 Not Detected Not Detected Coronavirus OC43 Not Detected Not Detected Coronavirus NL63 Not Detected Not Detected Parainfluenza Virus 1 Not Detected Not Detected Parainfluenza Virus 2 Not Detected Not Detected Parainfluenza Virus 3 Not Detected Not Detected Parainfluenza Virus 4 Not Detected Not Detected RSV PCR Not Detected Not Detected Human Metapneumovirus A and B Not Detected Not Detected Rhinovirus/Enterovirus Not Detected Not Detected Bordetella pertussis Not Detected Not Detected Bordetella parapertussis Not Detected Not Detected Mycoplasma pneumo by PCR Not Detected Not Detected Chlamydia pneumoniae Not Detected Not Detected SARS COV-2 Not Detected Not Detected Patient is also receiving the following antibiotic(s): Piperacillin/Tazobactam Plan Patient has received a Loading vancomycin dose of 1500 mg on 02/02. Pharmacy will initiate a maintenance dose of 1000 mg every 36 hours starting on 02/03 at 21:00. Predicted trough is 14.4 with AUC of 512. Per protocol, therapy is expected to last more than 5 days and therefore a trough indicated. A trough has been ordered for 02/05 at 08:00 prior to 3rd dose Will continue to monitor and recommend changes as necessary. Dona Sousa PharmD 02/02/25 10:57 AM EDT * Antonia Chapin MD - 02/02/2025 10:49 AM EDT Images from the original note were not included. [place] PROGRESS NOTE Date: 02/02/2025 Author: Antonia Chapin MD Patient ID: Anjana Wallace is a 79 y.o. female : 1945 MR#: [id number] 01/31/2025 SUBJECTIVE Patient seen and examined today. Patient is awake and alert. Yesterday's events were noted. Apparently patient went into flash pulmonary edema and had to be put on BiPAP. Troponins high likely from demand ischemia and hypoxia. Patient denies any chest pain. Patient found to have a little low blood pressure this morning and her blood pressure medications were held. She was a negative of 1 L. Scheduled Medications PRN Medications IV Medications acetaminophen, 1,000 mg, q8h HERNÁN aspirin, 81 mg, Daily atorvastatin, 40 mg, Daily furosemide, 40 mg, BID 07-11 [Held by provider] furosemide, 20 mg, BID 07-11 gabapentin, 100 mg, TID insulin glargine, 10 Units, Nightly insulin lispro, 2-12 Units, Before meals & nightly ipratropium-albuteroL, 3 mL, 4x daily isosorbide mononitrate, 30 mg, Daily metoprolol tartrate, 25 mg, q6h morphine, 2 mg, Once piperacillin-tazobactam, 3.375 g, q8h [Held by provider] sacubitriL-valsartan, 1 tablet, BID [Held by provider] spironolactone, 12.5 mg, Daily benzonatate, 100 mg, TID PRN bisacodyL, 10 mg, Daily PRN dextromethorphan-guaiFENesin, 10 mL, q4h PRN dextrose 50%, 12.5 g, q15 min PRN dextrose 50%, 25 g, q15 min PRN dextrose, 15 g, q15 min PRN dextrose, 30 g, q15 min PRN glucagon injection, 1 mg, Once PRN ipratropium-albuteroL, 3 mL, q6h PRN OBJECTIVE Vitals: 02/02/25 0416 02/02/25 0600 02/02/25 0700 02/02/25 0745 BP: (!) 118/48 95/57 BP Location: Right arm Left arm Patient Position: Lying Lying Pulse: 85 Resp: 24 Temp: 37.1 ??C (98.7 ??F) TempSrc: Temporal SpO2: 95% Weight: 63.9 kg (140 lb 12.8 oz) 63.7 kg (140 lb 8 oz) 63.7 kg (140 lb 8 oz) Height: 1.549 m (60.98 ) Intake/Output Summary (Last 24 hours) at 02/02/2025 1049 Last data filed at 02/02/2025 0610 Gross per 24 hour Intake 661.67 ml Output 1750 ml Net -1088.33 ml Wt Readings from Last 1 Encounters: 02/02/25 0745 63.7 kg (140 lb 8 oz) 02/02/25 0700 63.7 kg (140 lb 8 oz) 02/02/25 0600 63.9 kg (140 lb 12.8 oz) 01/31/25 1112 64.4 kg (142 lb) PHYSICAL EXAM: Gen: Alert oriented x 3, on Oxyegn CV -Tachy , No MRG Lungs -Crackles present on right side Abd - Soft, non-tender, non-distended Extremities - No LE edema Neuro - AO x3 RESULTS: CBC BMP Results from last 7 days Lab Units 02/02/25 0419 02/01/25 1636 02/01/25 0542 01/31/25 1111 WBC AUTO K/mcL 7.7 14.6* 8.3 6.1 HEMOGLOBIN g/dL 7.1* 7.8* 7.2* 7.9* HEMATOCRIT % 23.8* 25.9* 23.7* 26.0* PLATELETS K/mcL 312 371 304 337 LYMPHS PCT AUTO % 13.3 4.0 -- 18.8 MONO PCT AUTO % 12.3 8.5 -- 12.4 EOS PCT AUTO % 0.8 0.1 -- 3.8 Results from last 7 days Lab Units 02/02/25 0419 02/01/25 1628 02/01/25 0542 01/31/25 1111 SODIUM mmol/L 140 137 134 134 POTASSIUM mmol/L 3.9 4.5 4.2 4.4 CHLORIDE mmol/L 107 106 105 103 CO2 mmol/L 23 22 24 23 ANION GAP 10 9 5 8 BUN mg/dL 21 21 18 21 CREATININE mg/dL 1.76* 1.79* 1.44* 1.73* CALCIUM mg/dL 8.3* 8.1* 8.2* 8.2* MAGNESIUM mg/dL 2.3 2.3 -- 1.8* Results from last 7 days Lab Units 02/02/25 0745 02/02/25 0419 02/01/25 2051 02/01/25 1628 02/01/25 1602 POCT GLUCOSE mg/dL 141* -- 186* -- 279* GLUCOSE mg/dL -- 102* -- 282* -- Results from last 7 days Lab Units 01/31/25 1111 AST unit/L 7* ALT unit/L 11 Recent Results (from the past week) Culture urine Collection Time: 01/31/25 4:00 PM Specimen: Urine, Clean Catch Result Value Ref Range Culture, Urine >100,000 CFU/mL Escherichia coli (A) Susceptibility Escherichia coli - ALEXEY Amoxicillin/Clavulanate Susceptible ug/ml Ampicillin/Sulbactam Susceptible ug/ml Piperacillin/Tazobactam Susceptible ug/ml Cefazolin (Urine) Susceptible ug/ml Cefoxitin Susceptible ug/ml Ceftazidime Susceptible ug/ml Ceftriaxone Susceptible ug/ml Cefepime Susceptible ug/ml Meropenem Susceptible ug/ml Amikacin Susceptible ug/ml Gentamicin Susceptible ug/ml Ciprofloxacin Susceptible ug/ml Levofloxacin Susceptible ug/ml Nitrofurantoin Susceptible ug/ml Trimethoprim/Sulfamethoxazole Susceptible ug/ml Blood Culture, Peripheral Draw #2 Collection Time: 01/31/25 6:27 PM Specimen: Blood, Venous Result Value Ref Range Culture, Blood No growth at 24 hours Blood Culture, Peripheral Draw #1 Collection Time: 01/31/25 6:38 PM Specimen: Blood, Venous Result Value Ref Range Culture, Blood No growth at 24 hours Respiratory virus panel molecular study Collection Time: 01/31/25 6:38 PM Specimen: Nares; Swab Result Value Ref Range Adenovirus Detection by PCR Not Detected Not Detected Influenza A PCR Not Detected Not Detected Influenza B PCR Not Detected Not Detected Coronavirus 229E Not Detected Not Detected Coronavirus HKU1 Not Detected Not Detected Coronavirus OC43 Not Detected Not Detected Coronavirus NL63 Not Detected Not Detected Parainfluenza Virus 1 Not Detected Not Detected Parainfluenza Virus 2 Not Detected Not Detected Parainfluenza Virus 3 Not Detected Not Detected Parainfluenza Virus 4 Not Detected Not Detected RSV PCR Not Detected Not Detected Human Metapneumovirus A and B Not Detected Not Detected Rhinovirus/Enterovirus Not Detected Not Detected Bordetella pertussis Not Detected Not Detected Bordetella parapertussis Not Detected Not Detected Mycoplasma pneumo by PCR Not Detected Not Detected Chlamydia pneumoniae Not Detected Not Detected SARS COV-2 Not Detected Not Detected Imaging: XR Chest 1 View Narrative: XR CHEST 1 VIEW INDICATION: SOB, abn CXR, heart failure suspected TECHNIQUE: XR CHEST 1 VIEW COMPARISON: No priors available. Impression: FINDINGS/IMPRESSION: Worsening diffuse opacities of right greater than left lungs presumably representing moderate congestive heart failure. Stable cardiomediastinal contours and the leftlung postsurgical changes with suprahilar/upper lobe scarring. -------- FINAL REPORT -------- Dictated By: Trung Toure Dictated Date: 02/01/2025 15:10 ET Assigned Physician: Trung Toure Reviewed and Electronically Signed By: Trung Toure Signed Date: 02/01/2025 15:11 ET Workstation ID: [id number] Transcribed By: Self Edit Transcribed Date: 02/01/2025 15:10 ET ASSESSMENT & PLAN 79-year-old female with PMH of lung cancer s/p left upper lobectomy 2019 s/p chemotherapy and radiation, recently seen by neurology at [facility] for new brain mass s/p right suboccipital craniotomy on 12/03/2024, NIDDM, HFrEF, CKD, and hyperlipidemia presents to the ED after being found on the ground, unwitnessed fall. Severe sepsis on admission Acute respiratory failure with hypoxia on admission Questionable community-acquired pneumonia Also found to have a urinary tract infection urine culture growing E. coli Patient initially on admission was febrile with tachycardia and hypoxic. She was placed on oxygen and was given IV fluids and albumin. She was initially started on ceftriaxone and azithromycin. Given immunocompromise status and history of lung cancer And urine cultures growing E. coli will switch her antibiotics to IV Zosyn and vancomycin Will do a MRSA swab if negative can DC vancomycin Blood cultures have been negative. Appreciate ID recommendations Syncope and collapse likely in the setting of infection and dehydration and sepsis. Acute on chronic heart failure with reduced ejection fraction. Flash pulmonary edema History of HFrEF patient was given IV fluids and was started on IV fluids and was also given albumin Patient went into flash pulmonary edema on 02/01/2025. Chest x-ray done and looks like has right-sided pulmonary vascular congestion. Will discontinue all her IV fluids she will be on fluid restriction strict I's and O's and daily weights To be on IV Lasix 40 mg twice daily continue to monitor. Patient was on BiPAP yesterday did a lot better Patient on Entresto which has been held because of low blood pressure this morning. Elevated troponins likely from demand ischemia Patient denies any chest pain. Echo to be done today. Cardiology has been consulted. History of lung cancer with metastasis follows by Dr. Faye status post left upper lobectomy and mediastinal lymphadenectomy [id number] treated with radiation and chemotherapy On 11/30/2024 patient was found to have brain mass with hydrocephalus with effacement of fourth ventricle and underwent right suboccipital craniotomy on 12/03/2024 Anemia likely chronic disease continue to monitor no signs of blood loss at this time. Transfuse ifhemoglobin less than 7 Check anemia labs JP on CKD initially likely because of sepsis was on IV fluids we will continue to trend her creatinine Type 2 diabetes holding her home meds will start her on Lantus and insulin sliding scale Hyperlipidemia on statins PT to see patient once stable DVT Prophylaxis low hgb , SCD Full Code - Default Disposition continue to be on telemetry for now. Updated brother Davian about patient's condition * Bala Poe RN - 02/02/2025 2:26 AM EDT Problem: Cognitive: Holman Dl Fall Risk Goal: Mental Status/LOC/Awareness Outcome: Progressing Problem: Cognitive: Holman Dl Fall Risk Goal: Mobility requiring assistance of person or device Outcome: Progressing Goals: Identify possible barriers to meeting goals/advancing plan of care: fall resk Stability of the patient: Moderately Stable - Low risk of patient condition declining or worsening End of Shift Summary: pt adhere to treatment plan continues redirection is need this shift. Pt has impulsive behaviors and continues touches medical equipment. For safety measures virtual monitor is in place. Pt alert and orientated x3 forgetful at times. No resp distress/sob pt is on bipap oxygen saturation remain in the high 90's. Care ongoing at this time. * Christofer Madrigal RN - 02/01/2025 5:05 PM EDT Rapid response called for hypoxia and tachycardia. Patient placed on BiPAP by respiratory therapy. Heart rate in the 130s sustaining. 5 mg of IV metoprolol given. 2mg IV morphine given. ABG completed. Nitro paste applied for elevated BP 170s/90s. Patient O2 sat normal 95% while on BiPAP, heart ratedecreased to low 100s. BP decreased 147/71. * MY Tang - 02/01/2025 4:25 PM EDT Rapid response called for tachypnea, tachycardia, elevated blood pressure and hypoxia. I saw the patient at bedside was placed on nonrebreather as her O2 sat was noted to be 80s on 2 L. Respiratory was in the process of bringing down BiPAP. Respiratory vitals are notable for blood pressure 202/105 and heart rate of 130. Her lungs had crackles throughout. She does not have peripheral edema. She had received metoprolol earlier for tachycardia and lasix 40 with good urine output afterwards. EKG showed afib in 120s. She does not have a documented history of afib. Her chadvasc is 6, age, sex, diabetes, hypertension, chf. Assessment Acute respiratory distress, hypertensive urgency, new afib with rvr Plan -Give morphine for work of breathing, transition to bipap -metoprolol 5mg ivp and give metorprolol tartrate 25mg q6h (increased from 12.5mg bid) -give 0.5 in nitropaste x1, continue with imdur in the morning -repeat labs now including cbc, bmp, troponin -would benefit from anticoagulation given elevated chadvasc, discussed with attending will hold offat this time and place cardiology consult -patient was seen and discussed with attending Dr. Sanders troponin elevated at 236-295 will check troponin in am, she denies any chest pain, will repeat EKG as well, suspect demand ischemia in the setting of chf exacerbation and hypoxia * Antonia Chapin MD - 02/01/2025 2:20 PM EDT Images from the original note were not included. [place] PROGRESS NOTE Date: 02/01/2025 Author: Antonia Chapin MD Patient ID: Anjana Wallace is a 79 y.o. female : 1945 MR#: [id number] 01/31/2025 SUBJECTIVE Patient seen and examined today. Patient is awake and alert. Patient has no recollection of what happened to her and while she is in the hospital mentions she feels fine and would like to go home. She has no nausea vomiting. No fever or chills. No diarrhea. No pain. No chest discomfort. No lightheadedness or dizziness at this time. Heart rate a little better. Scheduled Medications PRN Medications IV Medications acetaminophen, 1,000 mg, q8h HERNÁN aspirin, 81 mg, Daily atorvastatin, 40 mg, Daily furosemide, 40 mg, Once [Held by provider] furosemide, 20 mg, BID - gabapentin, 100 mg, TID insulin glargine, 10 Units, Nightly insulin lispro, 2-12 Units, Before meals & nightly ipratropium-albuteroL, 3 mL, 4x daily isosorbide mononitrate, 30 mg, Daily metoprolol tartrate, 12.5 mg, BID piperacillin-tazobactam, 3.375 g, q8h [Held by provider] sacubitriL-valsartan, 1 tablet, BID [Held by provider] spironolactone, 12.5 mg, Daily benzonatate, 100 mg, TID PRN bisacodyL, 10 mg, Daily PRN dextromethorphan-guaiFENesin, 10 mL, q4h PRN dextrose 50%, 12.5 g, q15 min PRN dextrose 50%, 25 g, q15 min PRN dextrose, 15 g, q15 min PRN dextrose, 30 g, q15 min PRN glucagon injection, 1 mg, Once PRN ipratropium-albuteroL, 3 mL, q6h PRN ondansetron (ZOFRAN-ODT) disintegrating tablet, 4 mg, q8h PRN Or ondansetron, 4 mg, q8h PRN OBJECTIVE Vitals: 02/01/25 1030 02/01/25 1035 02/01/25 1417 02/01/25 1435 BP: (!) 150/67 (!) 187/91 BP Location: Left arm Patient Position: Lying Pulse: 106 (!) 140 Resp: 18 Temp: 36.3 ??C (97.3 ??F) 36.6 ??C (97.8 ??F) TempSrc: Temporal SpO2: 97% 100% 90% 92% Weight: Height: Intake/Output Summary (Last 24 hours) at 02/01/2025 1449 Last data filed at 02/01/2025 0539 Gross per 24 hour Intake -- Output 1655 ml Net -1655 ml Wt Readings from Last 1 Encounters: 01/31/25 1112 64.4 kg (142 lb) PHYSICAL EXAM: Gen: Alert oriented x 3, on Oxyegn CV -Tachy , No MRG Lungs -Crackles present on right side Abd - Soft, non-tender, non-distended Extremities - No LE edema Neuro - AO x3 RESULTS: CBC BMP Results from last 7 days Lab Units 02/01/25 0542 01/31/25 1111 WBC AUTO K/mcL 8.3 6.1 HEMOGLOBIN g/dL 7.2* 7.9* HEMATOCRIT % 23.7* 26.0* PLATELETS K/mcL 304 337 LYMPHS PCT AUTO % -- 18.8 MONO PCT AUTO % -- 12.4 EOS PCT AUTO % -- 3.8 Results from last 7 days Lab Units 02/01/25 0542 01/31/25 1111 SODIUM mmol/L 134 134 POTASSIUM mmol/L 4.2 4.4 CHLORIDE mmol/L 105 103 CO2 mmol/L 24 23 ANION GAP 5 8 BUN mg/dL 18 21 CREATININE mg/dL 1.44* 1.73* CALCIUM mg/dL 8.2* 8.2* MAGNESIUM mg/dL -- 1.8* Results from last 7 days Lab Units 02/01/25 1058 02/01/25 0923 02/01/25 0818 02/01/25 0542 01/31/25 2054 POCT GLUCOSE mg/dL 348* 403* 354* -- 148* GLUCOSE mg/dL -- -- -- 207* -- Results from last 7 days Lab Units 01/31/25 1111 AST unit/L 7* ALT unit/L 11 Recent Results (from the past week) Culture urine Collection Time: 01/31/25 4:00 PM Specimen: Urine, Clean Catch Result Value Ref Range Culture, Urine >100,000 CFU/mL Gram negative bacilli (A) Blood Culture, Peripheral Draw #2 Collection Time: 01/31/25 6:27 PM Specimen: Blood, Venous Result Value Ref Range Culture, Blood Culture in progress Blood Culture, Peripheral Draw #1 Collection Time: 01/31/25 6:38 PM Specimen: Blood, Venous Result Value Ref Range Culture, Blood Culture in progress Respiratory virus panel molecular study Collection Time: 01/31/25 6:38 PM Specimen: Nares; Swab Result Value Ref Range Adenovirus Detection by PCR Not Detected Not Detected Influenza A PCR Not Detected Not Detected Influenza B PCR Not Detected Not Detected Coronavirus 229E Not Detected Not Detected Coronavirus HKU1 Not Detected Not Detected Coronavirus OC43 Not Detected Not Detected Coronavirus NL63 Not Detected Not Detected Parainfluenza Virus 1 Not Detected Not Detected Parainfluenza Virus 2 Not Detected Not Detected Parainfluenza Virus 3 Not Detected Not Detected Parainfluenza Virus 4 Not Detected Not Detected RSV PCR Not Detected Not Detected Human Metapneumovirus A and B Not Detected Not Detected Rhinovirus/Enterovirus Not Detected Not Detected Bordetella pertussis Not Detected Not Detected Bordetella parapertussis Not Detected Not Detected Mycoplasma pneumo by PCR Not Detected Not Detected Chlamydia pneumoniae Not Detected Not Detected SARS COV-2 Not Detected Not Detected Imaging: CT Abdomen Pelvis w Contrast Narrative: INDICATION: Abdominal trauma CT abdomen and pelvis [...] within normal limits. Bladder decompressed by a Anderson catheter. No intraperitoneal free air or fluid is visualized. No pathologic lymphadenopathy is seen. Prominent left retroperitoneal lymph node 0.8 x 1.3 cm axial image 39. Degenerative changes of the spine. Impression: No evidence of acute traumatic injury in the abdomen and pelvis. Indeterminate left adrenal nodule. Additional findings as above. This document has been electronically signed by: Frederick Garcia MD on 01/31/2025 18:13:19 CT Angio Chest wo and/or w Contrast Narrative: INDICATION: PE suspected, high prob CT angiography [...] upper abdomen is unremarkable. No acute fractures. Impression: No pulmonary embolus. Opacities of the left lung concerning for infection. CT chest follow-up is recommended to confirm resolution and exclude pulmonary nodule or mass. Small left pleural effusion. Mildly enlarged subcarinal lymph node. This document has been electronically signed by: Frederick Garcia MD on 01/31/2025 18:10:20 XR Chest 2 Views Narrative: XR CHEST 2 VIEWS INDICATION: general weakness TECHNIQUE: XR CHEST 2 VIEWS COMPARISON: 05/12/2020 Impression: FINDINGS/IMPRESSION: Postsurgical changes left lung with new linear left upper lobe opacity could represent scarring, atelectasis or infiltrate. Stable cardiomediastinal contours. No congestive heart failure. Degenerative osseous changes. -------- FINAL REPORT -------- Dictated By: Trung Toure Dictated Date: 01/31/2025 14:53 ET Assigned Physician: Trung Toure Reviewed and Electronically Signed By: Trung Toure Signed Date: 01/31/2025 14:53 ET Workstation ID: [id number] Transcribed By: Self Edit Transcribed Date: 01/31/2025 14:[address] Head wo Contrast Narrative: PROCEDURE: Head and cervical spine CT INDICATION: Fall, pain TECHNIQUE: Noncontrast CT of the head and cervical spine with multiplanar reformats. The examination was performed utilizing dose reduction techniques. Total DLP 1473. COMPARISON: None FINDINGS: Head CT: No acute territorial infarct, mass effect, or intracranial hemorrhage. 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 Small bilateral cerebral convexity subdural hygromas measuring 6 mm bilaterally. Diffuse cerebral volume loss with prominence of ventricles, sulci, and cisterns. No hydrocephalus. Visualized paranasal sinuses and mastoid air cells are clear. No scalp hematoma or skull fracture. Bilateral lens implants. Cervical spine CT: No acute fracture or prevertebral swelling. Cervical lordosis is preserved. Multilevel degenerative changes are seen throughout the cervical spine with uncovertebral spurring and facet arthropathy present. No pneumothorax at the lung apices. Inflammatory appearing opacities are noted at the left apex. Paraspinal muscles are within normal limits. Postsurgical changes seen in the right suboccipital region. Right upper paraesophageal lymph node is 11 mm short axis is nonspecific, and not well evaluated on this exam. Impression: No acute intracranial abnormality. 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 Small bilateral cerebral convexity subdural hygromas without significant mass effect upon adjacent structures. No acute cervical spine fracture. -------- FINAL REPORT -------- Dictated By: ANAIS TONEY Dictated Date: 01/31/2025 11:55 ET Assigned Physician: ANAIS TONEY Reviewed and Electronically Signed By: ANAIS TONEY Signed Date: 01/31/2025 11:56 ET Workstation ID: [id number] Transcribed By: Self Edit Transcribed Date: 01/31/2025 11:[address] Cervical Spine wo Contrast Narrative: PROCEDURE: Head and cervical spine CT INDICATION: Fall, pain TECHNIQUE: Noncontrast CT of the head and cervical spine with multiplanar reformats. The examination was performed utilizing dose reduction techniques. Total DLP 1473. COMPARISON: None FINDINGS: Head CT: No acute territorial infarct, mass effect, or intracranial hemorrhage. 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 Small bilateral cerebral convexity subdural hygromas measuring 6 mm bilaterally. Diffuse cerebral volume loss with prominence of ventricles, sulci, and cisterns. No hydrocephalus. Visualized paranasal sinuses and mastoid air cells are clear. No scalp hematoma or skull fracture. Bilateral lens implants. Cervical spine CT: No acute fracture or prevertebral swelling. Cervical lordosis is preserved. Multilevel degenerative changes are seen throughout the cervical spine with uncovertebral spurring and facet arthropathy present. No pneumothorax at the lung apices. Inflammatory appearing opacities are noted at the left apex. Paraspinal muscles are within normal limits. Postsurgical changes seen in the right suboccipital region. Right upper paraesophageal lymph node is 11 mm short axis is nonspecific, and not well evaluated on this exam. Impression: No acute intracranial abnormality. 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 Small bilateral cerebral convexity subdural hygromas without significant mass effect upon adjacent structures. No acute cervical spine fracture. -------- FINAL REPORT -------- Dictated By: ANAIS TONEY Dictated Date: 01/31/2025 11:49 ET Assigned Physician: ANAIS TONEY Reviewed and Electronically Signed By: ANAIS TONEY Signed Date: 01/31/2025 11:55 ET Workstation ID: [id number] Transcribed By: Self Edit Transcribed Date: 01/31/2025 11:49 ET ASSESSMENT & PLAN 79-year-old female with PMH of lung cancer s/p left upper lobectomy 2019 s/p chemotherapy and radiation, recently seen by neurology at [facility] for new brain mass s/p right suboccipital craniotomy on 12/03/2024, NIDDM, HFrEF, CKD, and hyperlipidemia presents to the ED after being found on the ground, unwitnessed fall. Severe sepsis on admission Acute respiratory failure with hypoxia on admission Questionable community-acquired pneumonia Also found to have a urinary tract infection urine culture growing gram-negative bacilli Patient initially on admission was febrile with tachycardia and hypoxic. She was placed on oxygen and was given IV fluids and albumin. She was initially started on ceftriaxone and azithromycin. Given immunocompromise status and history of lung cancer And urine cultures growing gram-negative bacilli will switch her antibiotics to IV Zosyn and vancomycin Will do a MRSA swab if negative can DC vancomycin Blood cultures are pending at this time. ID consulted. Syncope and collapse likely in the setting of infection and dehydration and sepsis. History of HFrEF patient was given IV fluids and was started on IV fluids and was also given albumin Later today around 2:30 PM patient went into flash pulmonary edema she was found to be tachypneic with tachycardia and her blood pressure was in the 170s. She was placed on oxygen given IV Lasix 40 mg stat along with metoprolol 5 mg stat Chest x-ray done and looks like has right-sided pulmonary vascular congestion. Will discontinue all her IV fluids she will be on fluid restriction strict I's and O's and daily weights To be on IV Lasix 40 mg twice daily continue to monitor. History of lung cancer with metastasis follows by Dr. Faye status post left upper lobectomy and mediastinal lymphadenectomy [id number] treated with radiation and chemotherapy On 11/30/2024 patient was found to have brain mass with hydrocephalus with effacement of fourth ventricle and underwent right suboccipital craniotomy on 12/03/2024 Anemia likely chronic disease continue to monitor no signs of blood loss at this time. JP on CKD initially likely because of sepsis was on IV fluids we will continue to trend her creatinine Type 2 diabetes holding her home meds will start her on Lantus and insulin sliding scale Hyperlipidemia on statins DVT Prophylaxis low hgb , SCD Full Code - Default Disposition Tele * Amanda Rowley, PT - 02/01/2025 12:43 PM EDT [facility] Physical Therapy Evaluation & Treatment PT Discharge Recommendations: [facility] facility placement Staff Recommendations for safe patient handlin person CG/Alex with wwalker AM-PAC 6 Clicks Scoring Form: Unable: 1 A Lot: 2 A Little: 3 None: 4 How much difficulty does the patient currently have? Turning over in bed (including adjustment of bedclothes, sheets, and blankets) [] [] [x] [] Sitting down on and standing up from a chair with arms (wheelchair, bedside commode etc [] [] [x] [] Moving from lying on back to sitting on the side of the bed [] [] [x] [] How much help from another person does the patient currently need? Moving to and from a bed to a chair ( including a wheelchair) [] [] [x] [] To walk in hospital room [] [x] [] [] Climbing 3-5 steps with a railing [x] [] [] [] Score: score indicates the pt would benefit from STR after acute discharge Precautions Medical Precautions: Fall Risk Safety Interventions: Call james within reach, ID band on, Bed alarm, Side rails up x1 RUE Weight Bearing Status: Full LUE Weight Bearing Status: Full RLE Weight Bearing Status: Full Fall prevention education provided including use of call light in hospital, use of appropriate assistive device, safe mobility techniques, and safety measures at home. PT Received On: 02/01/25 PT Start Time: 1030 PT Stop Time: 1100 PT Time Calculation (min): 30 min Precautions Medical Precautions: Fall Risk Safety Interventions: Call james within reach, ID band on, Bed alarm, Side rails up x1 RUE Weight Bearing Status: Full LUE Weight Bearing Status: Full RLE Weight Bearing Status: Full Cognition Overall Cognitive Status: Within Functional Limits Arousal/Alertness: Delayed responses to stimuli Orientation Level: Able to orient with prompts Following Commands: Follows one step commands with increased time, Follows one step commands with repetition Safety Judgment: Good awareness of safety precautions Awareness of Errors: Good awareness of errors made Hearing: Intact Vision: Intact Speech: Intact Integumentary: NT History of Present Illness: Patient is a 79 y.o. female admitted to [facility] on 01/31/2025. Patient Active Problem List Diagnosis Primary adenocarcinoma of upper lobe of left lung (CMS/HCC V24, CMS/HCC V28) Metastasis to brain (CMS/HCC V24, CMS/HCC V28) Syncope and collapse History reviewed. No pertinent past medical history. History reviewed. No pertinent surgical history. Social History Home Living Environment: Home Living Type of Home: House Lives With: Family Home Adaptive Equipment: Walker - rolling Home Layout: One level Home Access: Stairs to enter with rails Entrance Stairs-Rails: Rail on the left going up Entrance Stairs-Number of Steps: 4 Prior Function Level of [place]: Needs assistance with mobility Ambulation Status: Household ambulator Receives Help From: Family Indoor Mobility Assistance: Needed Some Help Prior Device Use: Walker Do you drive?: No Which is your dominant hand?: Right General Assessment 02/01/25 1030 PT Last Visit PT Received On 02/01/25 PT Time Calculation PT Start Time 1030 PT Stop Time 1100 PT Time Calculation (min) 30 min Precautions Medical Precautions Fall Risk Safety Interventions Call james within reach;ID band on;Bed alarm;Side rails up x1 RUE Weight Bearing Status Full LUE Weight Bearing Status Full RLE Weight Bearing Status Full Vital Signs SpO2 97 % Oxygen Therapy Oxygen Therapy None (Room air) Pain Assessment Pain Assessment No/denies pain Pain Score 0 - No pain Patient's Pain Goal No pain Cognition Overall Cognitive Status WFL Arousal/Alertness Delayed responses to stimuli Orientation Level Able to orient with prompts Following Commands Follows one step commands with increased time;Follows one step commands with repetition Safety Judgment Good awareness of safety precautions Awareness of Errors Good awareness of errors made Home Living Type of Home House Lives With Family Home Adaptive Equipment Walker - rolling Home Layout One level Home Access Stairs to enter with rails Entrance Stairs-Rails Rail on the left going up Entrance Stairs-Number of Steps 4 Prior Function Level of [place] Needs assistance with mobility Ambulation Status Household ambulator Receives Help From Family Indoor Mobility Assistance Needed Some Help Prior Device Use Walker Do you drive? No Activity Tolerance Endurance Tolerates less than 10 min exercise, no significant change in vital signs Sensation Light Touch No apparent deficits Coordination Coordination Impaired Static Sitting Balance Static Sitting-Level of Assistance Supervision Static Standing Balance Static Standing-Level of Assistance Contact guard;Minimum assistance Bed Mobility Rolling Left and Right Assistance Contact guard Lying to Sitting Assistance Minimum assistance Transfers Sit to Stand Assistance Minimum assistance Sit to Stand Deficit Steadying;Verbal cueing;Assist for foot placement;Increased time to complete;Supervision/safety awareness Chair/Bed to Chair/Bed Transfer Assistance Minimum assistance Chair/Bed to Chair/Bed Transfer Deficit Steadying;Verbal cueing;Supervision/safety awareness;Increased time to complete;Assist for foot placement Ambulation Walking Assistance Minimum assistance Walking Deficit Steadying;Supervision/safety awareness;Verbal cueing Device Rolling walker Distance Ambulated (ft) 2 Comments only able to get into chair limited by dizziness RUE Assessment RUE Assessment Within Functional Limits LUE Assessment LUE Assessment Within Functional Limits RLE Assessment RLE Assessment Within Functional Limits LLE Assessment LLE Assessment Within Functional Limits PT Assessment PT Assessment Results Decreased strength;Decreased range of motion;Decreased endurance;Impaired balance;Impaired gait;Decreased mobility;Decreased coordination;Decreased cognition;Impaired judgement Prognosis Fair Evaluation/Treatment Tolerance Patient limited by fatigue Medical Staff Made Aware Yes Plan Treatment/Interventions Functional transfer training;LE strengthening/ROM;Bed mobility;Gait training PT Plan Skilled PT PT Frequency 2-5 days per week PT Duration of Sessions 15-30 min per session PT Treatments per day 1 time per day PT Discharge Recommendations [facility] facility placement PT - Evaluation Status Complete PT Evaluation Time Entry PT Evaluation (Moderate) Time Entry 30 Treatment performed during evaluation: None performed ADDITIONAL COMMENTS: Chart reviewed. RN clears pt for session. Pt agrees to participate and presented in bed upon PT arrival. All lines in place. Gait belt utilized throughout treatment to maximize safety. Medical precautions observed appropriately. Initiated education on the importance of PT, bed mobility safety, Transfer Safety, Ambulation Safety , Therapy Plan of Care, Home Safety, Energy Conservations strategies, and importance of OOB activity . Pt verbalized understanding. EXIT STATUS: Session ended with patient in bed, tray table and call light within reach, and RN made aware. Physical Therapy Assessment/Plan Anjana Wallace is a 79 y.o. female admitted to [facility] on 01/31/2025 for Syncope and collapse [R55] Urinary tract infection without hematuria, site unspecified [N39.0] Acute hypoxic respiratory failure (CMS/[facility] V24, CMS/[facility] V28) [J96.01] . Pt presents with decreased BLE strength, balance deficits, decreased activity tolerance, and far below functional baseline. Pt performed bed mobility Contact guard and Minimal assist, Bedrail, [place] pivot, and HOB elevated, Transfers with Contact guard and Minimal assist, FWW and ambulates Contact guard and Minimal assist with FWW 2 ft . Pt will benefit from skilled acute PT during hospital stay to improve the deficits listed above and optimize function. PT recommends [facility] facility placement when medically stable for safe discharge and to optimize functional mobility and independence. Goals Encounter Problems Encounter Problems (Active) Template: Physical Therapy Problem: PT Short Term Goals Dates: Start: 02/01/25 Goal: Pt will ambulate up to 50ft with RW with SBA Dates: Start: 02/01/25 Expected End: 02/08/25 Encounter Problems (Resolved) There are no resolved problems. Education Documentation Home Exercise Program, taught by Amanda Rowley PT at 02/01/2025 12:43 PM. Learner: Patient Readiness: Acceptance Method: Explanation, Demonstration, Cognitively Impaired Response: Verbalizes Understanding, Demonstrated Understanding, Cognitively Impaired Mobility Training, taught by Amanda Rowley PT at 02/01/2025 12:43 PM. Learner: Patient Readiness: Acceptance Method: Explanation, Demonstration, Cognitively Impaired Response: Verbalizes Understanding, Demonstrated Understanding, Cognitively Impaired Education Comments No comments found. Amanda Rowley PT * Tammy Wadsworth RN - 01/31/2025 10:57 AM EDT PT BIBA from home after an unwitnessed fall- unknown HS,LOC. Not on thinners. C/o posterior head pain. Collared by ems. * MY Cagle - 01/31/2025 10:52 AM EDT Emergency Medicine Note Patient Name: Anjana Wallace Initial Evaluation: 01/31/2025 : 1945 Patient's PCP: Pcp Unknown Physician Emergency Physician: MY Cagle History of Present Illness Chief Complaint: Chief Complaint Patient presents with Fall HPI: This is a 79-year-old female with a history of adenocarcinoma of the lung in remission, statuspost brain mass with recent resection at [facility] [facility], followed by Dr. Faye in oncology here, diabetes, hyperlipidemia, CAD presents to the ED via EMS after being found on the ground at home. Fall was unwitnessed and family members did not know how long patient had been on the floor. Patient does not recall any falls and states she cannot recall anything from this morning or last night. Patient is otherwise alert and oriented x 4. She complains of some posterior head pain but states is due to the cervical collar pressing on where her surgery was. She otherwise denies any pain. She reports she has had a cough for a while. Denies any headache, neck pain, vision changes, chest pain, dyspnea, nausea,vomiting, diarrhea, abdominal pain, other pain, paresthesias, focal weakness. She is not currently on chemotherapy or radiation. Denies anticoagulation. ROS: I have performed a ROS with the pertinent positives and negatives documented in the history ofpresent illness. Previous History No past medical history on file. No past surgical history on file. No family history on file. has No Known Allergies. No current facility-administered medications on file prior to encounter. Current Outpatient Medications on File Prior to Encounter Medication Sig Dispense Refill aspirin 81 mg EC tablet Take 1 tablet (81 mg total) by mouth 1 (one) time each day. atorvastatin (LIPITOR) 40 mg tablet Take 1 tablet (40 mg total) by mouth 1 (one) time each day. dulaglutide (TRULICITY) 0.75 mg/0.5 mL pen injector injection Inject under the skin. furosemide (LASIX) 20 mg tablet Take 1 tablet (20 mg total) by mouth 2 (two) times a day. Every other day gabapentin (NEURONTIN) 100 mg capsule Take 1 capsule (100 mg total) by mouth 3 (three) times a day. glipiZIDE (GLUCOTROL) 5 mg tablet Take 1 tablet (5 mg total) by mouth 2 (two) times a day before breakfast and dinner. isosorbide mononitrate (IMDUR) 30 mg 24 hr tablet Take 1 tablet (30 mg total) by mouth daily. metoprolol tartrate (LOPRESSOR) 100 mg tablet Take 1 tablet (100 mg total) by mouth 2 (two) times aday. nitroglycerin (NITROSTAT) 0.[address] 1 tablet (0.4 mg total) under the tongue every 5 (five) minutes as needed for chest pain. sacubitriL-valsartan (ENTRESTO) 24-26 mg per tablet Take 1 tablet by mouth 2 (two) times a day. Physical Exam ED Triage Vitals [01/31/25 1112] Temp Heart Rate Resp BP 37.5 ??C (99.5 ??F) 96 18 111/63 SpO2 Temp Source Heart Rate Source Patient Position 97 % Oral Monitor Lying BP Location FiO2 (%) Left arm -- General: Well-appearing, well nourished, in no acute distress HEENT: Atraumatic, well healing incision over right occipital scalp from recent surgery; PERRL, EOMI, external ears and nose appear unremarkable, airway is patent Neck: No bony step-off or deformity; no midline spinal or paraspinal tenderness, supple, full rangeof motion Chest: Clear to auscultation; no evidence of respiratory distress Circulatory: RRR, extremities well perfused Abdomen: Positive bowel sounds, soft, non-distended, Non-Tender Rectal: Normal tone, no masses palpated, light brown stool, heme-negative with positive control; noright red blood per rectum or melena; Extremities: Normal ROM, No edema Skin: Warm and dry Neuro: Alert and oriented, no focal deficits Results Labs Reviewed BASIC METABOLIC PANEL - Abnormal Result Value Sodium 134 Potassium 4.4 Chloride 103 CO2 23 Anion Gap 8 Glucose 297 (*) BUN 21 Creatinine 1.73 (*) eGFR 30 (*) BUN/Creatinine Ratio 12.1 Calcium 8.2 (*) MAGNESIUM - Abnormal Magnesium 1.8 (*) TROPONIN I HIGH SENSITIVITY - Abnormal High Sensitivity Troponin I 122 (*) Narrative: High levels of biotin in samples may falsely decrease hsTroponin values. Use caution when interpreting hsTroponin results in patients taking biotin who exhibit renal impairment (eGFR <60) or in patients taking more than 20 mg/day of biotin. TROPONIN I HIGH SENSITIVITY - Abnormal High Sensitivity Troponin I 117 (*) Narrative: High levels of biotin in samples may falsely decrease hsTroponin values. Use caution when interpreting hsTroponin results in patients taking biotin who exhibit renal impairment (eGFR <60) or in patients taking more than 20 mg/day of biotin. CREATINE KINASE AND CKMB - Abnormal Total CK 22 CK-MB <1.0 (*) CK-MB Index <0.0 (*) CBC WITH AUTO DIFFERENTIAL - Abnormal WBC 6.1 RBC 2.50 (*) Hemoglobin 7.9 (*) Hematocrit 26.0 (*) MCV 102.4 (*) MCH 31.1 MCHC 30.4 (*) RDW 17.8 (*) Platelets 337 MPV 9.4 NRBC 0.0 NRBC Absolute 0.00 Neutrophils Relative 63.7 Lymphocytes Relative 18.8 Monocytes Relative 12.4 Eosinophils Relative 3.8 Basophils Relative 0.3 Immature Granulocytes Relative 1.0 Neutrophils Absolute 3.86 Lymphocytes Absolute 1.14 Monocytes Absolute 0.75 Eosinophils Absolute 0.23 Basophils Absolute 0.02 Immature Granulocytes Absolute 0.06 (*) URINALYSIS WITH REFLEX MICROSCOPIC AND CULTURE - Abnormal Specific [place] Urine 1.016 pH, Urine 6.0 Leukocytes, Urine Large (*) Nitrite, Urine Positive (*) Protein, Urine 100 (*) Glucose, Urine 500 (*) Ketones, Urine Negative Urobilinogen, Urine 0.2 Bilirubin, Urine Negative Blood, Urine Moderate (*) RBC, Urine 58.2 (*) WBC, Urine >4,000 (*) Squamous Epithelial, Urine >100 (*) Non-Squamous Epithelial, Urine Rare Transitional epithelial cells. Bacteria, Urine Few (*) Hyaline Casts, Urine 5.0 (*) VITAMIN B12 AND FOLATE - Abnormal Vitamin B-12 189 (*) Folate 5.1 HEPATIC FUNCTION PANEL - Abnormal Total Protein 5.9 (*) Albumin 2.2 (*) Total Bilirubin 0.5 Bilirubin, Direct 0.1 Bilirubin, Indirect 0.4 ALT (SGPT) 11 AST (SGOT) 7 (*) Alkaline Phosphatase 98 B-TYPE NATRIURETIC PEPTIDE - Abnormal BNP 629 (*) AMMONIA - Normal Ammonia 27 CULTURE BLOOD Culture, Blood Culture in progress CULTURE BLOOD Culture, Blood Culture in progress CULTURE URINE RESPIRATORY VIRUS PANEL MOLECULAR STUDY CBC AND DIFFERENTIAL Narrative: The following orders were created for panel order CBC and differential. Procedure Abnormality Status --------- ------ CBC auto differential[[id number]] Abnormal Final result Please view results for these tests on the individual orders. URINALYSIS WITH REFLEX MICROSCOPIC AND CULTURE Narrative: The following orders were created for panel order Urinalysis with reflex microscopic and culture. Procedure Abnormality Status --------- ------ Urinalysis with reflex ...[[id number]] Abnormal Final result [place] urine culture tube[[id number]] Final result Please view results for these tests on the individual orders. PROLACTIN Prolactin 8.50 THYROID STIMULATING HORMONE WITH REFLEX TO FREE T4 AND FREE T3 LACTATE, WITH REFLEX POCT GLUCOSE, BLOOD Abnormal Labs Reviewed BASIC METABOLIC PANEL - Abnormal; Notable for the following components: Result Value Glucose 297 (*) Creatinine 1.73 (*) eGFR 30 (*) Calcium 8.2 (*) All other components within normal limits MAGNESIUM - Abnormal; Notable for the following components: Magnesium 1.8 (*) All other components within normal limits TROPONIN I HIGH SENSITIVITY - Abnormal; Notable for the following components: High Sensitivity Troponin I 122 (*) All other components within normal limits Narrative: High levels of biotin in samples may falsely decrease hsTroponin values. Use caution when interpreting hsTroponin results in patients taking biotin who exhibit renal impairment (eGFR <60) or in patients taking more than 20 mg/day of biotin. TROPONIN I HIGH SENSITIVITY - Abnormal; Notable for the following components: High Sensitivity Troponin I 117 (*) All other components within normal limits Narrative: High levels of biotin in samples may falsely decrease hsTroponin values. Use caution when interpreting hsTroponin results in patients taking biotin who exhibit renal impairment (eGFR <60) or in patients taking more than 20 mg/day of biotin. CREATINE KINASE AND CKMB - Abnormal; Notable for the following components: CK-MB <1.0 (*) CK-MB Index <0.0 (*) All other components within normal limits CBC WITH AUTO DIFFERENTIAL - Abnormal; Notable for the following components: RBC 2.50 (*) Hemoglobin 7.9 (*) Hematocrit 26.0 (*) MCV 102.4 (*) MCHC 30.4 (*) RDW 17.8 (*) Immature Granulocytes Absolute 0.06 (*) All other components within normal limits URINALYSIS WITH REFLEX MICROSCOPIC AND CULTURE - Abnormal; Notable for the following components: Leukocytes, Urine Large (*) Nitrite, Urine Positive (*) Protein, Urine 100 (*) Glucose, Urine 500 (*) Blood, Urine Moderate (*) RBC, Urine 58.2 (*) WBC, Urine >4,000 (*) Squamous Epithelial, Urine >100 (*) Bacteria, Urine Few (*) Hyaline Casts, Urine 5.0 (*) All other components within normal limits VITAMIN B12 AND FOLATE - Abnormal; Notable for the following components: Vitamin B-12 189 (*) All other components within normal limits HEPATIC FUNCTION PANEL - Abnormal; Notable for the following components: Total Protein 5.9 (*) Albumin 2.2 (*) AST (SGOT) 7 (*) All other components within normal limits B-TYPE NATRIURETIC PEPTIDE - Abnormal; Notable for the following components: BNP 629 (*) All other components within normal limits CT Angio Chest wo and/or w Contrast Final Result No pulmonary embolus. Opacities of the left lung concerning for infection. CT chest follow-up is recommended to confirm resolution and exclude pulmonary nodule or mass. Small left pleural effusion. Mildly enlarged subcarinal lymph node. This document has been electronically signed by: Frederick Garcia MD on 01/31/2025 18:10:20 CT Abdomen Pelvis w Contrast Final Result No evidence of acute traumatic injury in the abdomen and pelvis. Indeterminate left adrenal nodule. Additional findings as above. This document has been electronically signed by: Frederick Garcia MD on 01/31/2025 18:13:19 XR Chest 2 Views Final Result FINDINGS/IMPRESSION: Postsurgical changes left lung with new linear left upper lobe opacity could represent scarring, atelectasis or infiltrate. Stable cardiomediastinal contours. No congestive heart failure. Degenerative osseous changes. -------- FINAL REPORT -------- Dictated By: Trung Toure Dictated Date: 01/31/2025 14:53 ET Assigned Physician: Trung Toure Reviewed and Electronically Signed By: Trung Toure Signed Date: 01/31/2025 14:53 ET Workstation ID: [id number] Transcribed By: Self Edit Transcribed Date: 01/31/2025 14:[address] Cervical Spine wo Contrast Final Result No acute intracranial abnormality. 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 Small bilateral cerebral convexity subdural hygromas without significant mass effect upon adjacent structures. No acute cervical spine fracture. -------- FINAL REPORT -------- Dictated By: ANAIS TONEY Dictated Date: 01/31/2025 11:49 ET Assigned Physician: ANAIS TONEY Reviewed and Electronically Signed By: ANAIS TONEY Signed Date: 01/31/2025 11:55 ET Workstation ID: [id number] Transcribed By: Self Edit Transcribed Date: 01/31/2025 11:[address] Head wo Contrast Final Result No acute intracranial abnormality. 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 Small bilateral cerebral convexity subdural hygromas without significant mass effect upon adjacent structures. No acute cervical spine fracture. -------- FINAL REPORT -------- Dictated By: ANAIS TONEY Dictated Date: 01/31/2025 11:55 ET Assigned Physician: ANAIS TONEY Reviewed and Electronically Signed By: ANAIS TONEY Signed Date: 01/31/2025 11:56 ET Workstation ID: [id number] Transcribed By: Self Edit Transcribed Date: 01/31/2025 11:55 ET I have discussed the incidental/abnormal imaging and/or lab abnormalities with the patient and haveinstructed them the need for further evaluation and workup with their primary care doctor. I have provided the patient with a paper copy of the abnormality. The laboratory results, imaging results and other diagnostic exam results were reviewed in the EMR. EKG Interpretation Heart rate 95, S sinus rhythm with PACs and pattern of bigeminy, LBBB, normal axis, no STEMI, specific T wave abnormality in leads II, III, aVF, V4, V5 and V6 no previous for comparison Critical Care Time None ? Medical Decision Making Cardiac arrhythmia, cardiogenic syncope, intracranial hemorrhage, brain mass, dehydration, rhabdomyolysis, JP, pulmonary embolism, intrathoracic/intra- abdominal hematoma, occult GI bleed, metabolic encephalopathy, UTI EKG, ekg monitor tech, CT head, C-spine, chest x-ray, check labs, UA Patient declined any analgesia or other medication at this time Initial workup reviewed. Patient's first troponin is elevated at 122 without previous for comparison she appears to have also a mild JP with a creatinine of 1.73 with previous creatinine being 1.2 and 1.3. She also is with acute on chronic anemia today with H&H of 7 and 26, previous approximately 6 weeks prior was 10 and 32. She denies any known bleeding and heme-negative on exam. Discussed with Dr. Begum, recommends CTA of the chest rule out PE and CT abdomen pelvis to rule out occult hematoma. Suspect patient is dehydrated from being on the ground but she is not in rhabdomyolysis. Will prehydrate with 1 L normal saline. Medications azithromycin (ZITHROMAX) 500 mg in sodium chloride 0.9 % 250 mL IVPB (500 mg intravenous New Bag 01/31/251838) bisacodyL (DULCOLAX) EC tablet 10 mg (has no administration in time range) lactated Ringer's infusion (has no administration in time range) acetaminophen (TYLENOL) tablet 1,000 mg (has no administration in time range) sodium chloride 0.9 % bolus 1,000 mL (0 mL intravenous Stopped 01/31/25 1558) magnesium sulfate 2 gram/50 mL (4 %) IVPB 2 g (0 g intravenous Stopped 01/31/25 155) sodium chloride 0.9 % flush 10 mL (10 mL intravenous Given 01/31/25 1716) iopamidoL (ISOVUE-370) 370 mg iodine /mL (76 %) injection 100 mL (90 mL intravenous Given 01/31/25 171) cefTRIAXone (ROCEPHIN) 1 g in sterile water 10 mL IV syringe (1 g intravenous Given 01/31/25 175) acetaminophen (TYLENOL) tablet 650 mg (650 mg oral Given 01/31/25 180) ED Course as of 01/31/251853Jan 31, 20251849 Workup reviewed. CT head and C-spine are negative for acute process. Patient noted to have worsening anemia, she is heme-negative. Denies any bleeding. She reported that she felt as though she had to urinate and she sat on a call but could not. Nursing reported that she was coughing and havingsmall amounts of overflow incontinence. Bladder scan revealed 400 cc of urine. Anderson catheter was placed. UA is consistent with UTI. Awaiting CT chest and abdomen, patient spiked a temp and desatted to 88% on room air. She was placed on supplemental O2 via nasal cannula, given Tylenol for fever. CTof the chest shows likely pneumonia. Blood cultures ordered and azithromycin added on. Care of thispatient transferred to medicine for further evaluation and treatment [LM] ED Course User Index [LM] MY Cagle Clinical Impressions as of 01/31/251853 Syncope and collapse Acute hypoxic respiratory failure Urinary tract infection without hematuria, site unspecified Procedures Procedures Diagnosis 1. Syncope and collapse CT Angio Chest wo and/or w Contrast CT Angio Chest wo and/or w Contrast 2. Acute hypoxic respiratory failure 3. Urinary tract infection without hematuria, site unspecified Disposition Admit to Inpatient ED Prescriptions None Physician Attestation MY Cagle 01/31/25 1220 MY Cagle 01/31/25 1334 MY Cagle 01/31/25 1854 Cosigned by Alejandro Begum DO at 01/31/2025 7:39 PM EDT documented in this encounter H&P Notes * MY Hare - 01/31/2025 7:45 PM EDT Images from the original note were not included. [place] [facility] Please contact author [MY Swain] via GO-SIM/AppCast. Patient: Anjana Wallace Admission Date/Time: 01/31/2025 10:56 AM : 1945 [79 y.o.] Patient's PCP: Pcp Unknown Physician Attending Provider: Jay Castillo MD CHIEF COMPLAINT: Unwitnessed fall HPI: 79-year-old female with PMH of lung cancer s/p left upper lobectomy 2019 s/p chemotherapy and radiation, recently seen by neurology at [facility] for new brain mass s/p right suboccipital craniotomy on 12/03/2024, NIDDM, HFrEF, CKD, and hyperlipidemia presents to the ED after being found on the ground, unwitnessed fall. Patients downtime is unknown. When asked, patient cannot recall the events prior to presenting to the hospital She states she was waiting for her nurse to arrive around 1598-1703 this afternoon, and then statesshe ended up in the ER Patient does report posterior head pain, she was called by EMS. When asked, patient states her painis around her incision site Patient reports cough with stomach feeling unable to bring up phlegm. Denies dysphagia/choking on food. States she has not had a fall since her brain surgery in November, was at rehab short-term Denies any known medication changes Reports adequate p.o. intake. Denies any abdominal pain, urinary symptoms, constipation, diarrhea, chest pain, shortness of breath Of note, patient does not use any oxygen at baseline She has a history of COPD/emphysema but states she has not followed with pulmonology recently Appears to be slightly poor historian Dany presented tachycardic 120, febrile 102.4, hypoxic 89% on room air and placed on 2L satting 98%, blood pressure 151/78, RR 20 Labs: WBC 6.1, hemoglobin 7.9, hematocrit 26, MCV 103, glucose 297, BUN 21, creatinine 1.73, GFR 30. Albumin 2.2. Magnesium 1.8. Ammonia 27. Lactic 2.3. Troponin 122, 117. BNP 629. CK-MB <1 UA: + Glucose, blood, WBC >4000, RBC 58. Urine culture pending. Blood culture x 2 pending. In the ED patient received acetaminophen 650 mg pox1, Ceftriaxone, Azithromycin, IV magnesium, Normal saline bolus x 1L Patient became hypotensive 78/44 (MAP: 55) given Albumin 25g x1 and normal saline bolus 500cc IMAGING: CTA Chest - No pulmonary embolus. Opacities of the left lung concerning for infection. CT chest follow-up is recommended to confirm resolution and exclude pulmonary nodule or mass. Small left pleuraleffusion. Mildly enlarged subcarinal lymph node. CT Abd/Pelvis w Contrast - No evidence of acute traumatic injury in the abdomen and pelvis. Indeterminate left adrenal nodule. Chest XR - Postsurgical changes left lung with new linear left upper lobe opacity could represent scarring, atelectasis or infiltrate. Stable cardiomediastinal contours. No congestive heart failure. Degenerative osseous changes. CT Cervical Spine wo Contrast - No acute intracranial abnormality. 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 Small bilateral cerebral convexity subdural hygromas without significant mass effect upon adjacent structures. No acute cervical spine fracture. CT Head wo Contrast - No acute intracranial abnormality. 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 Small bilateral cerebral convexity subdural hygromas without significantmass effect upon adjacent structures. No acute cervical spine fracture. ROS Negative except noted in HPI ALLERGIES: No Known Allergies HOME MEDICATIONS: Atorvastatin 40 mg at bedtime Trulicity 3 mg weekly injection Lantus 12 units at bedtime Famotidine 20 mg daily Furosemide 20 mg twice weekly Wednesday and Wednesday Gabapentin 100 mg twice daily Gabapentin 200 mg at bedtime Glipizide 10 mg twice daily Isosorbide mononitrate 30 mg daily Metoprolol tartrate 12.5 mg daily Entresto 24-26 mg twice daily Spironolactone 12.5 mg daily PAST MEDICAL & SURGICAL HISTORY: HFrEF Lung cancer s/p left lobectomy, chemotherapy and radiation Brain mass s/p right suboccipital craniotomy on 12/03/24 @ [facility] CAD s/p stent DM2, non insulin depenedent Emphysema COPD Hyperparathyroidism Hypertension Hyperlipidemia Peripheral vascular disease Bronchoscopy SOCIAL HISTORY: Former smoker - 1 pack per day x 53 years., Quit ~12 years ago Ambulates with a walker at baseline Lives with her son and nephew Has visiting nurses that help with her care at home, recently discharged from SNF FAMILY HISTORY: Kidney disease - Brother PHYSICAL EXAM: GENERAL: 79-year-old female sitting semierect on stretcher, no acute distress HEENT: Normocephalic. EOM intact. PERRL. Nasal cannula in place. Dentures. CARDIAC: Irregular rhythm, rate controlled. No JVD. PULMONARY: No significant wheezing. Nasal cannula in place. No increased work of breathing or accessory muscle use at rest. GI: Soft, nontender, nondistended, normoactive bowel sounds x4. :. No CVA or suprapubic tenderness MSK: Moves all extremities, full ROM. No joint deformity. NEURO: Pleasant, A&Ox3. No focal weakness, symmetric smile, clear speech. SKIN: Appears clean dry and intact. RESULTS/IMAGING: CT Angio Chest wo and/or w Contrast [[id number]] Collected: 01/31/251809 Order Status: Completed Updated: 01/31/251810 Narrative: INDICATION: PE suspected, high prob CT angiography [...] upper abdomen is unremarkable. No acute fractures. Impression: No pulmonary embolus. Opacities of the left lung concerning for infection. CT chest follow-up is recommended to confirm resolution and exclude pulmonary nodule or mass. Small left pleural effusion. Mildly enlarged subcarinal lymph node. This document has been electronically signed by: Frederick Garcia MD on 01/31/2025 18:10:20 CT Abdomen Pelvis w Contrast [[id number]] Collected: 01/31/251812 Order Status: Completed Updated: 01/31/251813 Narrative: INDICATION: Abdominal trauma CT abdomen and pelvis [...] within normal limits. Bladder decompressed by a Anderson catheter. No intraperitoneal free air or fluid is visualized. No pathologic lymphadenopathy is seen. Prominent left retroperitoneal lymph node 0.8 x 1.3 cm axial image 39. Degenerative changes of the spine. Impression: No evidence of acute traumatic injury in the abdomen and pelvis. Indeterminate left adrenal nodule. Additional findings as above. This document has been electronically signed by: Frederick Garcia MD on 01/31/2025 18:13:19 XR Chest 2 Views [[id number]] Collected: 01/31/25 145 Order Status: Completed Updated: 01/31/25 145 Narrative: XR CHEST 2 VIEWS INDICATION: general weakness TECHNIQUE: XR CHEST 2 VIEWS COMPARISON: 05/12/2020 Impression: FINDINGS/IMPRESSION: Postsurgical changes left lung with new linear left upper lobe opacity could represent scarring, atelectasis or infiltrate. Stable cardiomediastinal contours. No congestive heart failure. Degenerative osseous changes. -------- FINAL REPORT -------- Dictated By: Trung Toure Dictated Date: 01/31/2025 14:53 ET Assigned Physician: Trung Toure Reviewed and Electronically Signed By: Trung Toure Signed Date: 01/31/2025 14:53 ET Workstation ID: [id number] Transcribed By: Self Edit Transcribed Date: 01/31/2025 14:[address] Cervical Spine wo Contrast [[id number]] Collected: 01/31/25 1149 Order Status: Completed Updated: 01/31/25 1200 Narrative: PROCEDURE: Head and cervical spine CT INDICATION: Fall, pain TECHNIQUE: Noncontrast CT of the head and cervical spine with multiplanar reformats. The examination was performed utilizing dose reduction techniques. Total DLP 1473. COMPARISON: None FINDINGS: Head CT: No acute territorial infarct, mass effect, or intracranial hemorrhage. 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 Small bilateral cerebral convexity subdural hygromas measuring 6 mm bilaterally. Diffuse cerebral volume loss with prominence of ventricles, sulci, and cisterns. No hydrocephalus. Visualized paranasal sinuses and mastoid air cells are clear. No scalp hematoma or skull fracture. Bilateral lens implants. Cervical spine CT: No acute fracture or prevertebral swelling. Cervical lordosis is preserved. Multilevel degenerative changes are seen throughout the cervical spine with uncovertebral spurring and facet arthropathy present. No pneumothorax at the lung apices. Inflammatory appearing opacities are noted at the left apex. Paraspinal muscles are within normal limits. Postsurgical changes seen in the right suboccipital region. Right upper paraesophageal lymph node is 11 mm short axis is nonspecific, and not well evaluated on this exam. Impression: No acute intracranial abnormality. 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 Small bilateral cerebral convexity subdural hygromas without significant mass effect upon adjacent structures. No acute cervical spine fracture. -------- FINAL REPORT -------- Dictated By: ANAIS TONEY Dictated Date: 01/31/2025 11:49 ET Assigned Physician: ANAIS TONEY Reviewed and Electronically Signed By: ANAIS TONEY Signed Date: 01/31/2025 11:55 ET Workstation ID: [id number] Transcribed By: Self Edit Transcribed Date: 01/31/2025 11:[address] Head wo Contrast [[id number]] Collected: 01/31/25 1155 Order Status: Completed Updated: 01/31/25 1201 Narrative: PROCEDURE: Head and cervical spine CT INDICATION: Fall, pain TECHNIQUE: Noncontrast CT of the head and cervical spine with multiplanar reformats. The examination was performed utilizing dose reduction techniques. Total DLP 1473. COMPARISON: None FINDINGS: Head CT: No acute territorial infarct, mass effect, or intracranial hemorrhage. 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 Small bilateral cerebral convexity subdural hygromas measuring 6 mm bilaterally. Diffuse cerebral volume loss with prominence of ventricles, sulci, and cisterns. No hydrocephalus. Visualized paranasal sinuses and mastoid air cells are clear. No scalp hematoma or skull fracture. Bilateral lens implants. Cervical spine CT: No acute fracture or prevertebral swelling. Cervical lordosis is preserved. Multilevel degenerative changes are seen throughout the cervical spine with uncovertebral spurring and facet arthropathy present. No pneumothorax at the lung apices. Inflammatory appearing opacities are noted at the left apex. Paraspinal muscles are within normal limits. Postsurgical changes seen in the right suboccipital region. Right upper paraesophageal lymph node is 11 mm short axis is nonspecific, and not well evaluated on this exam. Impression: No acute intracranial abnormality. 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 Small bilateral cerebral convexity subdural hygromas without significant mass effect upon adjacent structures. No acute cervical spine fracture. -------- FINAL REPORT -------- Dictated By: ANAIS TONEY Dictated Date: 01/31/2025 11:55 ET Assigned Physician: ANAIS TONEY Reviewed and Electronically Signed By: ANAIS TONEY Signed Date: 01/31/2025 11:56 ET Workstation ID: [id number] Transcribed By: Self Edit Transcribed Date: 01/31/2025 11:55 ET ASSESSMENT AND PLAN: Sepsis Acute respiratory failure with hypoxia Community acquired pneumonia Paitent presented tachycardic 120, febrile 102.4, hypoxic 89% on room air and placed on 2L satting 98%, lactic 2.3 with source of infection PNA and UTI meeting sepsis criteria on admission - IV Ceftriaxone 1g Q24h - PO Azithromycin 500 mg Q24h - Analgesics, antiemetics as needed - Blood culture x 2 pending - Aspiration precautions - Continue supplemental oxygen, wean back as tolerated - Monitor on telemetry Hypotension Patient became hypotensive in the ED 78/44 (55) After normal saline bolus of 500cc her pressure is improved: 94/48 (63) In the setting of sepsis/Pneumonia/UTI - Continue gentle IV fluids + prn boluses as needed Syncope and collapse Likely in the setting of infection and dehydration. Patient was having syncopal episodes prior to surgery in 2024 as well (d/t brain mass) No known medication/dose changes, reports adequate po intake but clinically appears dry CT Head WO - No acute intracranial abnormality CT Cervical Spine WO - No acute cervical spine fracture. - Check orthostatic VS - Gentle IV fluids - Fall precautions - PT consult UTI UA showing + Glucose, blood, WBC >4000, RBC 58 - patient is asymptomatic - Continue Ceftriaxone as above - Urine culture pending HFrEF Appears dry, continuing IVF @ 75/hr for now Holding daily Entresto + Spironolactone for now due to hypotension Holding her twice weekly doses of furosemide 20 mg as well - Monitor I&Os Demand ischemia Troponin: 122, 117, third pending EKG showing sinus rhythm with PAC, bigeminy - Monitor on telemetry Lactic acidosis - Lactic 2.3 on admission, received IVF x1.5L total in the ED, repeat pending Hypomagnesemia - Magnesium 1.8, replaced, trend Lung cancer with metastasis Follows with Dr. Faye - S/p left upper lobectomy and mediastinal lymphadenectomy in 2019 - Treated with radiation and chemotherapy Most recently: Patient seen 11/30/24 by Neurology (Dr. Terell Lagos @ [facility]) for frequent falls due to feeling off balance... found to have 5.1x2.4cm hypodense mass + hydrocephalus w/ effacementof fourth ventricle - S/p right suboccipital craniotomy on 12/03/2024 Anemia, likely in chronic disease Baseline H&H appears to be around 10 and 32 Today hemoglobin 7.9, hematocrit 26 No signs of blood loss JP on CKD Baseline creatinine appears to be around 1.2 -1.3 Today: BUN 21, creatinine 1.73, GFR 30 Continue gentle IVF, trend, renally adjust medication as needed DM2, non insulin dependent Holding Trulicity + Glipizide - Sliding scale + ACHS POC Hyperlipidemia - Atorvastatin 40 mg at bedtime FULL CODE HCP: brother Marcelo - [phone] PPX: Pneumoboots Case and plan discussed with: Dr. Castillo Cosigned by Jay Castillo MD at 02/01/2025 7:15 AM EDT Associated attestation - Jay Castillo MD - 02/01/2025 7:15 AM EDT This is a split/shared visit with MY Hare. I personally performed the medical decision making (MDM) for the care of this patient on 01/31/2025s documented below 79 year-old female with history lung adenocarcinoma status post left upper lobectomy + chemotherapy+ radiation 2018 with recurrence as cerebellar metastases status post suboccipital craniotomy &resection 12/03/2024 followed by radiation therapy, heart failure with reduced ejection fraction LVEF 20-25%, type 2 diabetes mellitus, hypertension, hyperlipidemia, and chronic kidney disease stage 3presents with severe sepsis and acute hypoxemic respiratory failure secondary to left side multilobar pneumonia. After discussion with the ER provider, the patient will be admitted to the hospital. On initial evaluation she was febrile to 39.1 ??C and tachycardic to 120 bpm. She became hypotensive consistent with septic shock, but responded to 500 mL of crystalloid and 25 g of albumin. She did not have a leukocytosis, likely secondary to her prior exposure to chemotherapy, her phonatory markers were severely elevated. Imaging showed infiltrates in upper and lower lungs the left lobe, consistent with pneumonia. Urinalysis was also compatible with a urinary tract infection. She is being treated with ceftriaxone and azithromycin. Prescribe nebulizer treatments and pulmonary toilet. We will follow her cult ures and adjust her antibiotics as indicated. The patient was initially brought in after being found down at home. The patient is unable to remember any of the events surrounding her syncope. She did appear to be significantly volume depleted and static syncope is likely, denies any decrease in appetite or fluid intake. She is unaware of any fevers at home. Due to her recent neurosurgery, seizure is a possibility and when she is more stable an EEG may be beneficial. She is also diabetic and hypoglycemia is a possibility as his cardiac arrhythmia with depressed LVEF. We will monitor her on telemetry. In terms of her heart failure, due to her sepsis, her goal-directed medical therapy would be held until her blood pressure improves. We will monitor her volume status daily. Management of additional chronic medical problems as below. Jay Castillo MD 02/01/25 6:56 AM EDT documented in this encounter Consult Notes * Heladio Florez MD - 02/02/2025 11:02 AM EDTAssociated Order(s): IP CONSULT TO CARDIOLOGY Images from the original note were not included. [facility] Cardiology- Cardiology Consultation Note PATIENT NAME: Anjana Wallace ([id number]) DATE OF CONSULT: 02/02/2025 SUBJECTIVE REASON FOR CONSULTATION: Heart failure HISTORY OF PRESENT ILLNESS: Anjana Wallace is a 79 y.o. female patient with history of lung adenocarcinoma status post left upper lobectomy status post chemotherapy and radiotherapy in 2018 with evidence of recurrence as cerebellar metastases status post suboccipital craniotomy and resection in November 2024 followed by radiation therapy, heart failure with reduced ejection fraction, diabetes mellitus type 2, hypertension, hyperlipidemia, and CKD who is currently hospitalized due to an acute respiratory failure in the setting of a pneumonia. On admission, her GDMT was placed on hold given her initial presentation with hypotension. At home,the patient is on Toprol 12.5 mg daily, low-dose Entresto, and Aldactone 12.5 mg orally daily. The patient has been on oxygen supplementation for her hypoxic respiratory failure as well as antibiotic therapy for her pneumonia. Her initial hypotension resolved with the administration of fluids. Yesterday afternoon, the patient developed an acute worsening of her hypoxic respiratory failure. She developed severe hypertension and sudden pulmonary edema. She was also briefly noted to be in atrial fibrillation. The patient denied any chest pain throughout the event. The episode resolved afterthe administration of IV metoprolol and furosemide. She was also briefly on noninvasive positive pressure ventilation but was later transitioned to her nasal cannula. At the time of my evaluation this morning, the patient denies any shortness of breath with the oxygen cannula in place. She denies any chest pain. She denies any palpitations or dizziness. Cardiac testin. Echocardiogram (02/02/2025): Mildly reduced left ventricular systolic function with a left ventricular ejection fraction of 40 to 45%. Hypokinesis of the basal to mid inferior wall and inferoseptalwalls. Grade 2 LV diastolic dysfunction. Normal RV size and function. No significant valvular disease. When compared to the report of the echocardiogram done at [facility] [place] in November 2024: The LVEF has improved. 2. Echocardiogram (11/30/2024): Severely reduced left ventricular systolic function with a left ventricular ejection fraction of 20 to 25%. Global hypokinesis more pronounced in the inferior and septalwalls. No evidence of LV thrombus. Normal RV size and function. No significant valvular disease. REVIEW OF SYSTEMS (ROS): Negative except as mentioned in the HPI. PAST MEDICAL HISTORY She has no past medical history on file. PAST SURGICAL HISTORY She has no past surgical history on file. SOCIAL HISTORY Tob: reports that she has quit smoking. Her smoking use included cigarettes. She does not have any smokeless tobacco history on file. ETOH: has no history on file for alcohol use. Drug: has no history on file for drug use. FAMILY HISTORY She family history is not on file. MEDICATIONS: Current Facility-Administered Medications: acetaminophen (TYLENOL) tablet 1,000 mg, 1,000 mg, oral, q8h HERNÁN, Xavier Hooper MD, 1,000 mg at 02/02/25 0610 aspirin EC tablet 81 mg, 81 mg, oral, Daily, Antonia Chapin MD, 81 mg at 02/02/25 0850 atorvastatin (LIPITOR) tablet 40 mg, 40 mg, oral, Daily, MY Hare, 40 mg at 02/02/25 0850 benzonatate (TESSALON) capsule 100 mg, 100 mg, oral, TID PRN, Jay Castillo MD, 100 mg at 02/01/25 1406 bisacodyL (DULCOLAX) EC tablet 10 mg, 10 mg, oral, Daily PRN, Xavier Hooper MD dextromethorphan-guaiFENesin (ROBITUSSIN-DM) 10-100 mg/5 mL syrup 10 mL, 10 mL, oral, q4h PRN, MY Newton, 10 mL at 02/01/25 0134 dextrose (D50W) 50% injection 12.5 g, 12.5 g, intravenous, q15 min PRN, Jay Castillo MD dextrose (D50W) 50% injection 25 g, 25 g, intravenous, q15 min PRN, Jay Castillo MD dextrose 15 gram/60 mL oral solution 15 g, 15 g, oral, q15 min PRN, Jay Castillo MD dextrose 15 gram/60 mL oral solution 30 g, 30 g, oral, q15 min PRN, Jay Castillo MD furosemide (LASIX) injection 40 mg, 40 mg, intravenous, BID 07-11, Antonia Chapin MD, 40 mg at 02/01/25 171 [Held by provider] furosemide (LASIX) tablet 20 mg, 20 mg, oral, BID 07-11, Antonia Chapin MD gabapentin (NEURONTIN) capsule 100 mg, 100 mg, oral, TID, Antonia Chapin MD, 100 mg at 02/01/252128 Glucagon HCl (rDNA) injection 1 mg, 1 mg, intramuscular, Once PRN, Jay Castillo MD insulin glargine (LANTUS) injection 10 Units, 10 Units, subcutaneous, Nightly, Antonia Chapin MD, 10Units at 02/01/25 213 insulin lispro injection 2-12 Units, 2-12 Units, subcutaneous, Before meals & nightly, Jay Castillo MD, 2 Units at 02/01/25 213 ipratropium-albuteroL (DUONEB) 0.5-2.5 mg/3 mL nebulizer solution 3 mL, 3 mL, nebulization, q6h PRN, Jay Castillo MD, 3 mL at 02/01/25 1428 ipratropium-albuteroL (DUONEB) 0.5-2.5 mg/3 mL nebulizer solution 3 mL, 3 mL, nebulization, 4x daily, Antonia Chapin MD, 3 mL at 02/02/25 0856 isosorbide mononitrate (IMDUR) 24 hr tablet 30 mg, 30 mg, oral, Daily, Antonia Chapin MD metoprolol tartrate (LOPRESSOR) tablet 25 mg, 25 mg, oral, q6h, Antonia Chapin MD, 25 mg at 404 morphine 2 mg/mL injection 2 mg, 2 mg, intravenous, Once, Antonia Chapin MD piperacillin-tazobactam (ZOSYN) 3.375 g in sodium chloride 0.9 % 100 mL IVPB, 3.375 g, intravenous,q8h, Antonia Chapin MD, Stopped at 02/02/25 0709 [Held by provider] sacubitriL-valsartan (ENTRESTO) 24-26 mg per tablet 1 tablet, 1 tablet, oral, BID, Antonia Chapin MD [Held by provider] spironolactone (ALDACTONE) tablet 12.5 mg, 12.5 mg, oral, Daily, Antonia Chapin MD [START ON 02/03/2025] vancomycin (VANCOCIN) 1,000 mg in sodium chloride 0.9 % 250 mL IVPB, 1,000 mg,intravenous, q36h, Antonia Chapin MD vancomycin (VANCOCIN) IVPB 1,500 mg in 0.9 % sodium chloride 500 mL - CNR, 1,500 mg, intravenous, Once, Antonia Chapin MD ALLERGIES: She has No Known Allergies. OBJECTIVE Vitals: 02/02/25 1055 BP: (!) 124/41 Pulse: 94 Resp: 25 Temp: 36.9 ??C (98.5 ??F) SpO2: 99% Body mass index is 26.56 kg/m??. PHYSICAL EXAMINATION: Constitutional: In no acute distress. Appearance is age appropriate. Head / face: Facial features are normal. Eyes: Sclera are clear bilaterally. Ears / mouth / nose / throat: External nose is noted to be normal. Mouth is normal. Respiratory: Normal inspiration and expiration. Clear to auscultation bilaterally. Cardiac: Regular rate and rhythm. No murmurs. Abdomen: Positive bowel sounds. Soft and depressible. Nontender Vascular: Radial pulse is normal bilaterally. Ext: Skin temperature is warm to palpation. No edema or cyanosis. Psych: Alert. Awake. Oriented to time, place and person. Mood is appropriate. LABS: Troponin I high sensitivity Order: [id number] Status: Final result Visible to patient: No (inaccessible in MyChart) 0 Result Notes Component Ref Range & Units 04:19 (02/02/25) 1 d ago (02/01/25) 1 d ago (02/01/25) 2 d ago (01/31/25) 2 d ago (01/31/25) High Sensitivity Troponin I <=54 ng/L 306 Critical High 295 Critical High 236 Critical High 117 Critical High 122 Critical High ntains abnormal data CBC auto differential Order: [id number] - Part of Panel Order [id number] Status: Final result Visible to patient: No (inaccessible in MyChart) 0 Result Notes Component Ref Range & Units 04:19 (02/02/25) 1 d ago (02/01/25) 1 d ago (02/01/25) 2 d ago (01/31/25) 1 mo ago (12/17/24) 1 mo ago (12/08/24) WBC 4.8 - 10.8 K/mcL 7.7 14.6 High 8.3 6.1 9.7 8.4 RBC 3.80 - 4.80 M/mcL 2.30 Low 2.50 Low 2.30 Low 2.50 Low 3.20 Low 3.60 Low Hemoglobin 11.5 - 16.0 g/dL 7.1 Low 7.8 Low 7.2 Low 7.9 Low 10.1 Low 10.8 Low Hematocrit 35.0 - 47.0 % 23.8 Low 25.9 Low 23.7 Low 26.0 Low 32.8 Low 34.0 Low MCV 79.0 - 98.0 FL 103.5 High 102.8 High 103.0 High 102.4 High 102.8 High 95.2 MCH 27.0 - 32.0 pcg 30.9 31.0 31.3 31.1 31.7 30.3 MCHC 32.0 - 37.0 g/dL 29.8 Low 30.1 Low 30.4 Low 30.4 Low 30.8 Low 31.8 Low RDW 11.0 - 15.0 % 18.8 High 18.5 High 18.6 High 17.8 High 16.4 High 14.6 Platelets 130 - 400 K/mcL 312 371 304 337 177 182 MPV 7.0 - 11.0 FL 9.5 9.1 9.4 9.4 10.4 10.9 NRBC <1.0 % 0.0 0.0 0.0 0.0 0.0 0.0 NRBC Absolute <0.10 K/mcL 0.00 0.00 0.00 0.00 0.00 0.00 Neutrophils Relative % 72.3 85.8 63.7 83.0 Lymphocytes Relative % 13.3 4.0 18.8 7.1 Monocytes Relative % 12.3 8.5 12.4 7.5 Eosinophils Relative % 0.8 0.1 3.8 0.0 Basophils Relative % 0.4 0.3 0.3 0.4 Immature Granulocytes Relative % 0.9 1.3 1.0 2.0 Neutrophils Absolute 1.50 - 7.00 K/mcL 5.58 12.57 High 3.86 6.98 Lymphocytes Absolute 1.00 - 5.00 K/mcL 1.03 0.58 Low 1.14 0.60 Low Monocytes Absolute 0.20 - 1.00 K/mcL 0.95 1.24 High 0.75 0.63 Eosinophils Absolute 0.00 - 0.50 K/mcL 0.06 0.02 0.23 0.00 Basophils Absolute 0.00 - 0.20 K/mcL 0.03 0.04 0.02 0.03 Immature Granulocytes Absolute 0.00 - 0.03 K/mcL 0.07 High 0.19 High 0.06 High 0.17 High Resulting Agency [facility] Basic metabolic panel Order: [id number] Status: Final result Visible to patient: No (inaccessible in [facility] 0 Result Notes Component Ref Range & Units 04:19 (02/02/25) 1 d ago (02/01/25) 1 d ago (02/01/25) 2 d ago (01/31/25) 1 mo ago (12/17/24) 1 mo ago (12/08/24) Sodium 133 - 145 mmol/L 140 137 134 134 139 139 Potassium 3.5 - 5.5 mmol/L 3.9 4.5 4.2 4.4 5.2 4.0 Chloride 96 - 110 mmol/L 107 106 105 103 110 108 CO2 21 - 32 mmol/L 23 22 24 23 26 24 Anion Gap 3 - 11 10 9 5 8 3 7 Glucose 70 - 100 mg/dL 102 High 282 High 207 High 297 High 104 High 153 High BUN 5 - 25 mg/dL 21 21 18 21 38 High 39 High Creatinine 0.50 - 1.10 mg/dL 1.76 High 1.79 High 1.44 High 1.73 High 1.37 High 1.25 High eGFR >=60 mL/min/1.73m2 29 Low 29 Low CM 37 Low CM 30 Low CM 39 Low CM 44 Low CM Comment: Calculation based on the Chronic Kidney Disease Epidemiology Collaboration (CKD-EPI) equation refit without adjustment for race. BUN/Creatinine Ratio 11.9 11.7 12.5 12.1 27.7 31.2 Calcium 8.5 - 10.5 mg/dL 8.3 Low 8.1 Low 8.2 Low 8.2 Low 7.8 Low 7.8 Low Resulting Agency [facility] SP [facility] ASSESSMENT & PLAN 1. Elevated troponin: The patient is currently hospitalized due to a hypoxic respiratory failure in the setting of her pneumonia. She was also noted to be hypotensive on presentation which resolved after the administration of IV fluids. During the hospitalization she was noted to have an episode of sudden pulmonary edema which resolved after the administration of IV Lasix. The patient has not had any complaints of chest discomfort. Serial EKGs have not shown any significant ischemic changes. Echocardiogram done thismorning showed an LVEF of 40 to 45% along with hypokinesis of the inferior and inferoseptal kelley. When compared to the prior echocardiogram done at [facility] in November 2024: The LVEF has actually improved and the wall motion abnormalities have remained unchanged. Therefore, her troponin elevation is unlikely to represent a type I non-STEMI given the absence of symptoms of chest discomfort, the absence of ischemic ECG changes, in the absence of new LV regionalwall motion abnormalities on her echocardiogram done this morning when compared to the prior echocardiogram done in November 2024. Her troponin elevation is likely secondary to demand ischemia in the setting of her pneumonia, hypoxic respiratory failure, and initial presentation with septic shock. At this point, would recommend to continue with her current therapy with aspirin, atorvastatin and metoprolol. The patient should be considered for an ischemic evaluation in the outpatient setting once she recovers from her current pneumonia. 2. Lone atrial fibrillation: The patient had a brief instance of atrial fibrillation during the episode of sudden pulmonary edema that occurred yesterday in the afternoon. Serial EKG data showed that she quickly converted back to a sinus rhythm. She has remained in sinus rhythm this morning. It is likely that the episode of A-fib was secondary to a worsening of her hypoxic respiratory failure. At this point, would recommend to maintain the patient on close cardiac monitoring. Would also recommend to continue beta-kaitlyn therapy with metoprolol. The patient has an elevated [id number] score due to her comorbidities. Nevertheless, she also hasa history of metastatic cancer with brain metastases. As such the decision to initiate anticoagulation therapy in this patient should be made after a careful assessment of the risk and benefits of anticoagulation therapy. Given that the patient is currently in a sinus rhythm, would recommend to continue to monitor her telemetry to determine if she has any recurrent episodes of A-fib. If so, then we will need to contact the neurosurgery service to help us determine if it would be safe to start the patient on anticoagulation therapy. 3. Heart failure with reduced ejection fraction: The patient has a history of heart failure with reduced ejection fraction. Echocardiogram in November 2024 showed a severely reduced LVEF of 20 to 25%. The patient follows with a call circuit worker in the outpatient setting. Records are not available for me to review at this point. As such, I am unaware of the specific workup that has been completed to evaluate the patient's cardiomyopathy. In any event, in the outpatient setting she is on Toprol 12.5 mg orally daily, low-dose Entresto, and spironolactone 12.5 mg orally daily. Send this medications were held on admission due to her initial presentation with hypotension in the setting of apparent septic shock. The patient is now back on her metoprolol. Continue IV diuretic therapy with furosemide. Continue to hold the Entresto and spironolactone due to the patient's worsening renal function. Thank you for allowing us to participate in this consultation. Please feel free to contact us with questions or concerns. [facility] [address] [facility], [address] [place] [address] * Cristian Guzmán MD - 02/02/2025 9:34 AM EDTAssociated Order(s): IP CONSULT TO INFECTIOUS DISEASES Infectious Diseases Inpatient Consult Note Patient Name: Anjana Wallace Age: 79 y.o. Sex: female PCP: Pcp Unknown Physician Attending Provider: Antonia Chapin MD Assessment 79-year-old woman with multiple medical problems including T2DM, CKD, history of lung cancer statuspost left upper lobectomy in 2019 and status post chemoradiotherapy, newly diagnosed brain mass status post right suboccipital craniectomy on 12/03/2024 admitted on 01/31 after she was brought to the ED after she was found on the ground following unwitnessed fall. Sepsis, POA. Potential source pulmonary versus urinary Acute hypoxic respiratory failure Aspiration pneumonia in the setting of healthcare exposure and immunocompromise status Chest x-ray showed postsurgical changes of the left lung with new linear left upper lobe opacity. Negative respiratory PCR panel E. coli UTI Pyuria/hematuria/positive nitrite on UA. Urine culture grew more than 100k colonies of guzman susceptible E coli. 01/31 admission blood cultures sterile after [address] abdomen and pelvis showed cortical scarring of the left kidney, left renal cyst but no obstructive uropathy or urolithiasis. Neutrophilic leukocytosis- due to above Acute encephalopathy-resolving JP on CKD, CrCl 22 Immunocompromised patient Plan Continue renally adjusted IV Pip-Tazo as empiric treatment for aspiration pneumonia and E. coli UTI Add renally dosed IV vancomycin as per pharmacy protocol pending nasal MRSA screen. If nasal MRSA screen is not detected, stop IV vancomycin Check serum procalcitonin and urine Legionella antigen Follow-up blood cultures Respiratory supportive cares as per primary team Communicated with the primary team Thank you for allowing me to participate in this patient's care and I'll follow along with you. I spent more than 75 minutes in reviewing lab tests, microbiologic studies and medical records, obtaining history, ordering tests and antimicrobials, counseling and educating the patient, care coordination with interdisciplinary teams and documenting in the EMR. Cristian Guzmán MD, FACP, FIDSA Attending Physician, Infectious Diseases Reason for Consult Sepsis Source of History [] Patient [] Family member [x] EMR HPI 79-year-old woman with multiple medical problems including T2DM, CKD, history of lung cancer statuspost left upper lobectomy in 2019 and status post chemoradiotherapy, newly diagnosed brain mass status post right suboccipital craniectomy on 12/03/2024 admitted on 01/31 after she was brought to the ED after she was found on the ground following unwitnessed fall. In the ED she was febrile with temp 102.4, hypoxic, normotensive and tachycardic. Laboratory workup revealed resolved neutrophilic leukocytosis WBC 14.6, macrocytic anemia, JP on CKD creatinine 1.7, CRP 10.5, hemoglobin A1c 9.7, negative respiratory PCR panel, pyuria/hematuria/positive nitrite on UA. Urine culture grew more than 100k colonies of guzman susceptible E coli. 01/31 admission blood cultures sterile after [address] abdomen and pelvis showed cortical scarring of the left kidney, left renal cyst but no obstructive uropathy or urolithiasis. Chest x-ray showed postsurgical changes of the left lung with new linear left upper lobe opacity. She received ceftriaxone and azithromycin in the ED and later switched to IV pip-tazo. She remains afebrile after admission and has normal WBC count. In the last 24 hours she has been hypertensive and hypoxic requiring supplemental oxygen. Past Medical History History reviewed. No pertinent past medical history. Past Surgical History History reviewed. No pertinent surgical history. Family History No family history of recurrent infections Social History Ricardo reports that she has quit smoking. Her smoking use included cigarettes. She does not have any smokeless tobacco history on file. Allergies Patient has no known allergies. Vitals Visit Vitals BP 95/57 (BP Location: Left arm, Patient Position: Lying) Pulse 85 Temp 37.1 ??C (98.7 ??F) (Temporal) Resp 24 Ht 1.549 m (61 ) Wt 63.7 kg (140 lb 8 oz) SpO2 95% BMI 26.55 kg/m?? Smoking Status Former BSA 1.63 m?? Lines Peripheral IV 02/01/25 Left;Posterior Forearm (Active) Site Assessment Clean;Dry;Intact 02/02/25212 Dressing Type Transparent 02/02/25212 Line Status Flushed 02/02/25212 Phlebitis Scale 0 02/01/25 4365 Dressing Status Clean;Dry;Intact 02/02/25212 Urethral Catheter Double-lumen;Latex 16 Fr. (Active) Site Assessment Clean;Skin intact 02/02/25 0858 Collection Container Standard drainage bag 01/31/25 1742 Securement Method Securing device (Describe) 01/31/25 174 Reason for Continuing Urinary Catheterization Acute urinary retention (sudden and painful inabilityto urinate) or bladder outlet obstruction 02/02/25 0858 Urinary Catheter Output (mL) 300 mL 02/01/25 1816 Drains Urethral Catheter Double-lumen;Latex 16 Fr. (Active) Site Assessment Clean;Skin intact 02/02/25 0858 Collection Container Standard drainage bag 01/31/25 1742 Securement Method Securing device (Describe) 01/31/25 174 Reason for Continuing Urinary Catheterization Acute urinary retention (sudden and painful inabilityto urinate) or bladder outlet obstruction 02/02/25 0858 Urinary Catheter Output (mL) 300 mL 02/01/25 181 Laboratory Data I reviewed the labs. Pertinent labs - CBC: Results from last 7 days Lab Units 02/02/25 0419 02/01/25 1636 02/01/25 0542 01/31/25 1111 WBC AUTO K/mcL 7.7 14.6* 8.3 6.1 HEMOGLOBIN g/dL 7.1* 7.8* 7.2* 7.9* HEMATOCRIT % 23.8* 25.9* 23.7* 26.0* PLATELETS K/mcL 312 371 304 337 LYMPHS PCT AUTO % 13.3 4.0 -- 18.8 MONO PCT AUTO % 12.3 8.5 -- 12.4 EOS PCT AUTO % 0.8 0.1 -- 3.8 - Chem: Lab Results Component Value Date GLUCOSE 141 (H) 02/02/2025 CALCIUM 8.3 (L) 02/02/2025 NA 140 02/02/2025 K 3.9 02/02/2025 CO2 23 02/02/2025 CL 107 02/02/2025 BUN 21 02/02/2025 - LFTs: Lab Results Component Value Date ALT 11 01/31/2025 AST 7 (L) 01/31/2025 ALKPHOS 98 01/31/2025 BILITOT 0.5 01/31/2025 - Inflammatory markers No results found for: SEDRATE Lab Results Component Value Date CRP 10.50 (H) 01/31/2025 Microbiologic Data Recent Results (from the past week) Culture urine Collection Time: 01/31/25 4:00 PM Specimen: Urine, Clean Catch Result Value Ref Range Culture, Urine >100,000 CFU/mL Gram negative bacilli (A) Blood Culture, Peripheral Draw #2 Collection Time: 01/31/25 6:27 PM Specimen: Blood, Venous Result Value Ref Range Culture, Blood No growth at 24 hours Blood Culture, Peripheral Draw #1 Collection Time: 01/31/25 6:38 PM Specimen: Blood, Venous Result Value Ref Range Culture, Blood No growth at 24 hours Respiratory virus panel molecular study Collection Time: 01/31/25 6:38 PM Specimen: Nares; Swab Result Value Ref Range Adenovirus Detection by PCR Not Detected Not Detected Influenza A PCR Not Detected Not Detected Influenza B PCR Not Detected Not Detected Coronavirus 229E Not Detected Not Detected Coronavirus HKU1 Not Detected Not Detected Coronavirus OC43 Not Detected Not Detected Coronavirus NL63 Not Detected Not Detected Parainfluenza Virus 1 Not Detected Not Detected Parainfluenza Virus 2 Not Detected Not Detected Parainfluenza Virus 3 Not Detected Not Detected Parainfluenza Virus 4 Not Detected Not Detected RSV PCR Not Detected Not Detected Human Metapneumovirus A and B Not Detected Not Detected Rhinovirus/Enterovirus Not Detected Not Detected Bordetella pertussis Not Detected Not Detected Bordetella parapertussis Not Detected Not Detected Mycoplasma pneumo by PCR Not Detected Not Detected Chlamydia pneumoniae Not Detected Not Detected SARS COV-2 Not Detected Not Detected Imaging Studies I personally reviewed the imaging studies XR Chest 1 View Narrative: XR CHEST 1 VIEW INDICATION: SOB, abn CXR, heart failure suspected TECHNIQUE: XR CHEST 1 VIEW COMPARISON: No priors available. Impression: FINDINGS/IMPRESSION: Worsening diffuse opacities of right greater than left lungs presumably representing moderate congestive heart failure. Stable cardiomediastinal contours and the leftlung postsurgical changes with suprahilar/upper lobe scarring. -------- FINAL REPORT -------- Dictated By: Trung Toure Dictated Date: 02/01/2025 15:10 ET Assigned Physician: Trung Toure Reviewed and Electronically Signed By: Trung Toure Signed Date: 02/01/2025 15:11 ET Workstation ID: [id number] Transcribed By: Self Edit Transcribed Date: 02/01/2025 15:10 ET E-Consult Attestation: This visit was an e-consult visit. I did not physically examine or speak to the patient in person. All recommendations are based on chart review and discussion with the primary team. The patient was informed of the consultation by the primary team and I communicated the results of this consultationto primary team via Secure Chat. documented in this encounter Plan of Treatment Upcoming Encounters Date Type Department Care Team (Late st Contact Info) Description 05/14/2025 9:45 AM EDT Office Visit [facility] Hematology Oncology [address] [place] [address] Coleman Faye MD [address] [place] [address] documented as of this encounter Procedures Procedure Name Priority Date/Time Associated Diagnosis Comments POCT GLUCOSE BLOOD Routine 02/07/2025 11 :37 AM EDT POCT GLUCOSE BLOOD Routine 02/07/2025 7: 55 AM EDT CBC WITH AUTO DIFFERENTIAL Routine 02/07/2025 6:07 AM EDT CBC AND DIFFERENTIAL Routine 02/07/2025 6:07 AM EDT MAGNESIUM Routine 02/07/2025 6:07 AM EDT BASIC METABOLIC PANEL Routine 02/07/2025 6:07 AM EDT POCT GLUCOSE BLOOD Routine 02/06/2025 9: 09 PM EDT POCT GLUCOSE BLOOD Routine 02/06/2025 3: 57 PM EDT POCT GLUCOSE BLOOD Routine 02/06/2025 11 :26 AM EDT OXYGEN THERAPY, ADULT Routine 02/06/2025 8:02 AM EDT POCT GLUCOSE BLOOD Routine 02/06/2025 7: 45 AM EDT CBC WITH AUTO DIFFERENTIAL Routine 02/06/2025 5:52 AM EDT CBC AND DIFFERENTIAL Routine 02/06/2025 5:52 AM EDT MAGNESIUM Routine 02/06/2025 5:52 AM EDT BASIC METABOLIC [...] AUTO DIFFERENTIAL Routine 02/05/2025 5:58 AM EDT CBC AND DIFFERENTIAL Routine 02/05/2025 5:58 AM EDT MAGNESIUM Routine 02/05/2025 5:58 AM EDT BASIC METABOLIC [...] AUTO DIFFERENTIAL Routine 02/03/2025 6:56 AM EDT CBC AND DIFFERENTIAL Routine 02/03/2025 6:56 AM EDT TRANSFERRIN Routine 02/03/2025 6:56 AM EDT MAGNESIUM Routine 02/03/2025 6:56 AM EDT BASIC METABOLIC PANEL Routine 02/03/2025 6:56 AM EDT ECG 12-LEAD [...] BLOOD Routine 02/02/2025 7: 45 AM EDT TROPONIN I HIGH SENSITIVITY Routine 02/02/2025 4:19 AM EDT CBC WITH AUTO DIFFERENTIAL Routine 02/02/2025 4:19 AM EDT IRON AND TIBC Add-On 02/02/2025 4:19 AM EDT CBC AND DIFFERENTIAL Routine 02/02/2025 4:19 AM EDT MAGNESIUM Routine 02/02/2025 4:19 AM EDT FERRITIN Add-On 02/02/2025 4:19 AM EDT BASIC METABOLIC PANEL Routine 02/02/2025 4:19 AM EDT ECG ANNOTATED 02/02/2025 POCT GLUCOSE BLOOD Routine 02/01/2025 8: 51 PM EDT ECG 12-LEAD Routine 02/01/2025 8:30 PM EDT OXYGEN THERAPY, ADULT Routine 02/01/2025 8:01 PM EDT TROPONIN I HIGH SENSITIVITY Routine 02/01/2025 6:44 PM EDT TROPONIN I HIGH SENSITIVITY Routine 02/01/2025 4:36 PM EDT CBC WITH AUTO DIFFERENTIAL STAT 02/01/2025 4:36 PM EDT CBC AND DIFFERENTIAL STAT 02/01/2025 4:36 PM EDT MAGNESIUM STAT 02/01/2025 4:28 PM EDT BASIC METABOLIC PANEL STAT 02/01/2025 4:28 PM EDT EXTRA TUBES Routine 02/01/2025 4:19 PM EDT LT BLUE - NA CITRATE Routine 02/01/2025 4:19 PM EDT ARTERIAL BLOOD [...] BLOOD STAT 01/31/2025 6:[address] ABDOMEN PELVIS W CONTRAST STAT 01/31/2025 5:[address] ANGIO CHEST WO AND/OR W CONTRAST STAT 01/31/2025 5:20 PM EDT Syncope and collapse URINALYSIS WITH REFLEX MICROSCOPIC AND CULTURE STAT 01/31/2025 4:00 PM EDT ARTEAGA URINE CULTURE TUBE STAT [...] SENSITIVITY STAT 01/31/2025 1:[address] CERVICAL SPINE WO CONTRAST STAT 01/31/2025 11:[address] HEAD WO CONTRAST STAT 01/31/2025 1 1:36 AM EDT TROPONIN I HIGH SENSITIVITY STAT 01/31/2025 11:11 AM EDT THYROID STIMULATING HORMONE WITH REFLEX TO FREE T4 AND FREE T3 STAT Add-on 01/31/2025 11:11 AM EDT VITAMIN B12 AND FOLATE Add-On 11:11 AM EDT PROCALCITONIN STAT Add-on 01/31/2025 11:11 AM EDT CBC WITH AUTO DIFFERENTIAL STAT 01/31/2025 11:11 AM EDT PROLACTIN Add-On 01/31/2025 11:11 AM EDT CBC AND DIFFERENTIAL STAT 01/31/2025 11:11 AM EDT C-REACTIVE PROTEIN Add-On 01/31/2025 11 :11 AM EDT MAGNESIUM STAT 01/31/2025 11:11 AM EDT HEMOGLOBIN A1C Add-On 01/31/2025 11:11 AM EDT CREATINE KINASE AND CKMB STAT 01/31/2025 11:11 AM EDT HEPATIC FUNCTION PANEL STAT Add-on 11:11 AM EDT BASIC METABOLIC PANEL STAT 01/31/2025 11:11 AM EDT ECG 12-LEAD STAT 01/31/2025 11:07 AM EDT documented in this encounter Results * (ABNORMAL) POCT Glucose, blood (02/07/2025 11:37 AM EDT) [facility] Glucose POCT 243(H) 70 - 100 mg/dL 02/07/2025 11:38 AM EDT [facility] Blood Capillary blood specimen / Unknown 02/07/2025 11:37 AM EDT 02/07/2025 11:39 AM EDT Elda Mahmood MD LAB POINT OF CARE T EST DOCKED DEVICE UNSOLICITED RESULTS Final Result [facility] [address] [place] [address], * (ABNORMAL) POCT Glucose, blood (02/07/2025 7:55 AM EDT) [facility] Glucose POCT 158(H) 70 - 100 mg/dL 02/07/2025 7:56 AM EDT [facility] Blood Capillary blood specimen / Unknown 02/07/2025 7:55 AM EDT 02/07/2025 7:57 AM EDT Elda Mahmood MD LAB POINT OF CARE T EST DOCKED DEVICE UNSOLICITED RESULTS Final Result [facility] [address] [place] [address], * (ABNORMAL) CBC auto differential (02/07/2025 6:07 AM EDT) [facility] WBC 7.3 4.8 - 10.8 K/mcL LAB HEMET[facility] RBC 3.50(L) 3.80 - 4.80 M/mcL LAB HEMETOLOGY METHOD [facility]25 [facility] Hemoglobin 10.5(L) 11.5 - 16.0 g/dL LAB HEMETOLOGY METHOD 02/07/2025 7:25 AM [facility] Hematocrit 33.7(L) 35.0 - 47.0 % LAB HEMETOLOGY METHOD 02/07/2025 7:25 AM EDT [facility] MCV 95.2 79.0 - 98.0 FL LAB HEMETOLOGY METHOD [facility]/07[facility]2025 7[facility] MCH 29.7 27.0 - 32.0 pcg LAB HEMETOLOGY METHOD 02/07/2025 7:25 AM [facility] MCHC 31.2(L) 32.0 - 37.0 g/dL LAB HEMETOLOGY METHOD 02/07/2025 7:[facility] RDW 18.7(H) 11.0 - 15.0 [...] [facility] NRBC Absolute 0.00 <0.10 K/[facility] LAB HEMETOLOGY METHOD 02/07/2025 7:25 AM [facility] [...] 02/07/2025 7:25 AM [facility] Immature Granulocytes Relative 1.1 % LAB HEMETOLOGY METHOD 02/07/2025 7:25 AM [facility] Neutrophils Absolute 4.78 1.50 - 7.00 K/[facility] LAB HEMETOLOGY METHOD 02/07/2025 7:25 AM [facility] Lymphocytes Absolute 0.99(L) 1.00 - 5.00 K/mcL LAB HEMETOLOGY METHOD 02/07/2025 7:25 AM EDT [facility] Monocytes Absolute 0.75 0.20 - 1.00 K/mcL LAB HEMETOLOGY METHOD 02/07/2025 7:25 AM EDT [facility] Eosinophils Absolute 0.65(H) 0.00 - 0.50 K/mcL LAB HEMETOLOGY METHOD 02/07/2025 7:25 AM EDT [facility] Basophils Absolute 0.08 0.00 - 0.20 K/[facility] LAB HEMETOLOGY METHOD 02/07/2025 7:25 AM EDT [facility] Immature Granulocytes Absolute 0.08(H) 0.00 - 0.03 K/[facility] LAB HEMETOLOGY METHOD 02/07/2025 7:25 AM EDT [facility] Blood Venous blood specimen / Unknown Venipuncture / Unknown 02/07/2025 6:07 AM EDT 02/07/2025 7:06 AM EDT us Antonia Chapin MD LAB BLOOD ORDERABLES Final Resul t Performing Organization Address City/[facility]/ZIP Co de Phone Number [facility] [address] [place] [address], [place] [phone] * Magnesium (02/07/2025 6:07 AM EDT) Magnesium 1.9 1.9 - 2.6 mg/dL LAB CHEMISTRY METHOD 02/07/2025 7:39 AM EDT [facility] Blood Venous blood specimen / Unknown Venipuncture / Unknown 02/07/2025 6:07 AM EDT 02/07/2025 7:07 AM EDT us Antonia Chapin MD LAB BLOOD ORDERABLES Final Resul t Performing Organization Address City/[facility]/ZIP Co de Phone Number [facility] [address] [place] [address], [place] [phone] * (ABNORMAL) Basic metabolic panel (02/07/2025 6:07 AM EDT) Sodium 138 133 - 145 mmol/L LAB [...] 73m2 LAB CHEMISTRY METHOD 02/07/2025 7:39 AM [facility] Comment:Calculation based on the??Chronic Kidney Disease Epidemiology Collaboration (CKD-EPI) equation refit??without adjustment for race. BUN/Creatinine Ratio 15.5 LAB CHEMISTRY METHOD 02/07/2025 7:39 AM [facility] Calcium 8.2(L) 8.5 - 10.5 mg/dL LAB CHEMISTRY METHOD 02/07/2025 7:39 AM [facility] Blood Venous blood specimen / Unknown Venipuncture / Unknown 02/07/2025 6:07 AM EDT 02/07/2025 7:07 AM EDT us Antonia Chapin MD LAB BLOOD ORDERABLES Final Resul t Performing Organization Address [facility] [place]/[facility]/ZIP Co de Phone Number [facility] [address] [place] [address], [place] [phone] * (ABNORMAL) POCT Glucose, blood (02/06/2025 9:09 PM EDT) Glucose POCT 241(H) 70 - 100 mg/dL 02/06/2025 9:10 PM EDT [facility] Blood Capillary blood specimen / Unknown 02/06/2025 9:09 PM EDT 02/06/2025 9:11 PM EDT us Antonia Chapin MD LAB POINT OF CARE TE ST DOCKED DEVICE UNSOLICITED RESULTS Final Result Performing Organization Address [facility] [place]/[facility] Co de Phone Number [facility] [address] [place] [address], [place] [phone] * (ABNORMAL) POCT Glucose, blood (02/06/2025 3:57 PM EDT) Glucose POCT 227(H) 70 - 100 mg/dL 02/06/2025 3:59 PM EDT [facility] Blood Capillary blood specimen / Unknown 02/06/2025 3:57 PM EDT 02/06/2025 4:00 PM EDT us Antonia Chapin MD LAB POINT OF CARE TE ST DOCKED DEVICE UNSOLICITED RESULTS Final Result Performing Organization Address City/[facility]/ZIP Co de Phone Number [facility] [address] [place] [address], [place] [phone] * (ABNORMAL) POCT Glucose, blood (02/06/2025 11:26 AM EDT) Glucose POCT 231(H) 70 - 100 mg/dL 02/06/2025 11:27 AM EDT [facility] Blood Capillary blood specimen / Unknown 02/06/2025 11:26 AM EDT 02/06/2025 11:28 AM EDT us Antonia Chapin MD LAB POINT OF CARE TE ST DOCKED DEVICE UNSOLICITED RESULTS Final Result Performing Organization Address [facility] [place]/[facility]/ZIP Co de Phone Number [facility] [address] [place] [address], [place] [phone] * (ABNORMAL) POCT Glucose, blood (02/06/2025 7:45 AM EDT) [facility] Glucose POCT 126(H) 70 - 100 mg/dL 02/06/2025 7:46 AM EDT [facility] Blood Capillary blood specimen / Unknown 02/06/2025 7:45 AM EDT 02/06/2025 7:47 AM EDT us Antonia Chapin MD LAB POINT OF CARE TE ST DOCKED DEVICE UNSOLICITED RESULTS Final Result Performing Organization Address [facility] [place]/[facility] de Phone Number [facility] [address] [place] [address], [place] [phone] * (ABNORMAL) CBC auto differential (02/06/2025 5:52 AM EDT) [facility] WBC 7.3 4.8 - 10.8 K/[facility] LAB HEMETOLOGY METHOD 02/06/2025 6:37 AM EDT [facility] RBC 3.50(L) 3.80 - 4.80 M/[facility] LAB HEMETOLOGY METHOD 02/06/2025 6:37 AM EDT [facility] Hemoglobin 10.5(L) 11.5 - 16.0 g/dL LAB HEMETOLOGY METHOD 02/06/2025 6:37 AM EDT [facility] Hematocrit 33.6(L) 35.0 - 47.0 % LAB HEMETOLOGY METHOD 02/06/2025 6:37 AM [facility] MCV 96.3 79.0 - 98.0 FL LAB HEMETOLOGY METHOD 02/06/2025 6:37 AM [facility] MCH 30.1 27.0 - 32.0 pcg LAB HEMETOLOGY METHOD 02/06/2025 6:37 AM [facility] MCHC 31.3(L) 32.0 - 37.0 g/dL LAB HEMETOLOGY METHOD 02/06/2025 6:37 AM [facility] RDW 19.4(H) 11.0 - 15.0 % LAB HEMETOLOGY METHOD 02/06/2025 6:37 AM [facility] Platelets 346 130 - 400 K/mcL LAB HEMETOLOGY METHOD 02/06/2025 6:37 AM [facility] MPV 9.3 7.0 - 11.0 FL LAB HEMETOLOGY METHOD 02/06/2025 6:37 AM [facility] NRBC 0.0 <1.0 % LAB HEMETOLOGY METHOD 02/06/2025 6:37 AM [facility] NRBC Absolute 0.00 <0.10 K/mcL LAB HEMETOLOGY METHOD 02/06/2025 6:37 AM [facility] Neutrophils Relative 68.4 % LAB HEMETOLOGY METHOD 02/06/2025 6:37 AM [facility] Lymphocytes Relative 11.2 % LAB HEMETOLOGY METHOD 02/06/2025 6:37 AM [facility] Monocytes Relative 10.1 % LAB HEMETOLOGY METHOD 02/06/2025 6:37 AM [facility] Eosinophils Relative 8.3 % LAB HEMETOLOGY METHOD 02/06/2025 6:37 AM EDT [facility] Basophils Relative 0.8 % LAB HEMETOLOGY METHOD 02/06/2025 6:37 AM EDT [facility] Immature Granulocytes Relative 1.2 % LAB HEMETOLOGY METHOD 02/06/2025 6:37 AM EDT [facility] Neutrophils Absolute 5.00 1.50 - 7.00 K/mcL LAB HEMETOLOGY METHOD 02/06/2025 6:37 AM EDT [facility] Lymphocytes Absolute 0.82(L) 1.00 - 5.00 K/mcL LAB HEMETOLOGY METHOD 02/06/2025 6:37 AM EDT [facility] Monocytes Absolute 0.74 0.20 - 1.00 K/mcL LAB HEMETOLOGY METHOD 02/06/2025 6:37 AM EDT [facility] Eosinophils Absolute 0.61(H) 0.00 - 0.50 K/mcL LAB HEMETOLOGY METHOD 02/06/2025 6:37 AM EDT [facility] Basophils Absolute 0.06 0.00 - 0.20 K/mcL LAB HEMETOLOGY METHOD 02/06/2025 6:37 AM EDT [facility] Immature Granulocytes Absolute 0.09(H) 0.00 - 0.03 K/mcL LAB HEMETOLOGY METHOD 02/06/2025 6:37 AM EDT [facility] Blood Venous blood specimen / Unknown Venipuncture / Unknown 02/06/2025 5:52 AM EDT 02/06/2025 6:19 AM EDT us Antonia Chapin MD LAB BLOOD ORDERABLES Final Resul t [facility] [address] [place] [address], * Magnesium (02/06/2025 5:52 AM EDT) Magnesium 1.9 1.9 - 2.6 mg/dL LAB CHEMISTRY METHOD 02/06/2025 6:53 AM [facility] Blood Venous blood specimen / Unknown Venipuncture / Unknown 02/06/2025 5:52 AM EDT 02/06/2025 6:19 AM EDT Antonia Chapin MD LAB BLOOD ORDERABLES Final Resul t [facility] [address] [place] [address], [place] [phone] * (ABNORMAL) Basic metabolic panel (02/06/2025 5:52 AM EDT) [facility] Sodium 135 133 - 145 mmol/L LAB CHEMISTRY METHOD 02/06/2025 6:53 AM [facility] Potassium 3.7 3.5 - 5.5 mmol/L LAB CHEMISTRY METHOD 02/06/2025 6:53 AM [facility] Chloride 105 96 - 110 mmol/L LAB CHEMISTRY METHOD 02/06/2025 6:53 AM [facility] CO2 23 21 - 32 mmol/L LAB CHEMISTRY METHOD 02/06/2025 6:53 AM [facility] Anion Gap 7 3 - 11 LAB CHEMISTRY METHOD 02/06/2025 6:53 AM [facility] Glucose 87 70 - 100 mg/dL LAB CHEMISTRY METHOD 02/06/2025 6:53 AM [facility] BUN 27(H) 5 - 25 mg/dL LAB CHEMISTRY METHOD 02/06/2025 6:53 AM [facility] Creatinine 2.09(H) 0.50 - 1.10 mg/dL LAB CHEMISTRY METHOD 02/06/2025 6:53 AM [facility] eGFR 24(L) >=60 mL/min/1. 73m2 LAB CHEMISTRY METHOD 02/06/2025 6:53 AM EDT [facility] Comment:Calculation based on the??Chronic Kidney Disease Epidemiology Collaboration (CKD-EPI) equation refit??without adjustment for race. BUN/Creatinine Ratio 12.9 LAB CHEMISTRY METHOD 02/06/2025 6:53 AM EDT [facility] Calcium 8.3(L) 8.5 - 10.5 mg/dL LAB CHEMISTRY METHOD 02/06/2025 6:53 AM EDT [facility] Blood Venous blood specimen / Unknown Venipuncture / Unknown 02/06/2025 5:52 AM EDT 02/06/2025 6:19 AM EDT Antonia Chapin MD LAB BLOOD ORDERABLES Final Resul t Performing Organization Address City/[facility]/ZIP Co de Phone Number [facility] [address] [place] [address], * (ABNORMAL) POCT Glucose, blood (02/05/2025 9:12 PM EDT) Glucose POCT 278(H) 70 - 100 mg/dL 02/05/2025 9:13 PM EDT [facility] Blood Capillary blood specimen / Unknown 02/05/2025 9:12 PM EDT 02/05/2025 9:14 PM EDT Xavier Hooper MD LAB POINT OF CARE TE ST DOCKED DEVICE UNSOLICITED RESULTS Final Result [facility] [address] [place] [address], [place] [phone] * (ABNORMAL) POCT Glucose, blood (02/05/2025 4:05 PM EDT) Glucose POCT 252(H) 70 - 100 mg/dL 02/05/2025 4:07 PM EDT [facility] Blood Capillary blood specimen / Unknown 02/05/2025 4:05 PM EDT 02/05/2025 4:07 PM EDT us Antonia Chapin MD LAB POINT OF CARE TE ST DOCKED DEVICE UNSOLICITED RESULTS Final Result Performing Organization Address [facility] [place]/[facility]/ZIP Co de Phone Number [facility] [address] [place] [address], [place] [phone] * (ABNORMAL) POCT Glucose, blood (02/05/2025 11:37 AM EDT) Glucose POCT 132(H) 70 - 100 mg/dL 02/05/2025 11:38 AM EDT [facility] Blood Capillary blood specimen / Unknown 02/05/2025 11:37 AM EDT 02/05/2025 11:39 AM EDT us Antonia Chapin MD LAB POINT OF CARE TE ST DOCKED DEVICE UNSOLICITED RESULTS Final Result Performing Organization Address [facility] [place]/[facility] Co de Phone Number [facility] [address] [place] [address], [place] [phone] * (ABNORMAL) POCT Glucose, blood (02/05/2025 8:05 AM EDT) Glucose POCT 134(H) 70 - 100 mg/dL 02/05/2025 8:17 AM EDT [facility] Blood Capillary blood specimen / Unknown 02/05/2025 8:05 AM EDT 02/05/2025 8:17 AM EDT us Antonia Chapin MD LAB POINT OF CARE TE ST DOCKED DEVICE UNSOLICITED RESULTS Final Result Performing Organization Address [facility] [place]/[facility]/ZIP Co de Phone Number [facility] [address] [place] [address], [place] [phone] * (ABNORMAL) CBC auto differential (02/05/2025 5:58 AM EDT) [facility] WBC 7.7 4.8 - 10.8 K/mcL LAB HEMETOLOGY METHOD 02/05/2025 7:29 AM [facility] RBC 3.30(L) 3.80 - 4.80 M/mcL LAB HEMETOLOGY METHOD 02/05/2025 7:29 AM [facility] Hemoglobin 10.1(L) 11.5 - 16.0 g/dL LAB HEMETOLOGY METHOD 02/05/2025 7:29 AM [facility] Hematocrit 32.5(L) 35.0 - 47.0 % LAB HEMETOLOGY METHOD 02/05/2025 7:29 AM [facility] MCV 97.6 79.0 - 98.0 FL LAB HEMETOLOGY METHOD 02/05/2025 7:29 AM [facility] MCH 30.3 27.0 - 32.0 pcg LAB HEMETOLOGY METHOD 02/05/2025 7:29 AM [facility] MCHC 31.1(L) 32.0 - 37.0 g/dL LAB HEMETOLOGY METHOD 02/05/2025 7:29 AM [facility] RDW 20.3(H) 11.0 - 15.0 % LAB HEMETOLOGY METHOD 02/05/2025 7:29 AM [facility] Platelets 329 130 - 400 K/mcL LAB HEMETOLOGY METHOD 02/05/2025 7:29 AM [facility] MPV 9.4 7.0 - 11.0 FL LAB HEMETOLOGY METHOD 02/05/2025 7:29 AM [facility] NRBC 0.0 <1.0 % LAB HEMETOLOGY METHOD 02/05/2025 7:29 AM [facility] NRBC Absolute 0.00 <0.10 K/mcL LAB HEMETOLOGY METHOD 02/05/2025 7:29 AM [facility] Neutrophils Relative 66.5 % LAB HEMETOLOGY METHOD 02/05/2025 7:29 AM [facility] Lymphocytes Relative 13.1 % LAB HEMETOLOGY METHOD 02/05/2025 7:29 AM [facility] Monocytes Relative 9.5 % LAB HEMETOLOGY METHOD 02/05/2025 7:29 AM [facility] Eosinophils Relative 9.2 % LAB HEMETOLOGY METHOD 02/05/2025 7:29 AM [facility] Basophils Relative 0.7 % LAB HEMETOLOGY METHOD 02/05/2025 7:29 AM [facility] Immature Granulocytes Relative 1.0 % LAB HEMETOLOGY METHOD 02/05/2025 7:29 AM [facility] Neutrophils Absolute 5.09 1.50 - 7.00 K/mcL LAB HEMETOLOGY METHOD 02/05/2025 7:29 AM [facility] Lymphocytes Absolute 1.00 1.00 - 5.00 K/mcL LAB HEMETOLOGY METHOD 02/05/2025 7:29 AM [facility] Monocytes Absolute 0.73 0.20 - 1.00 K/mcL LAB HEMETOLOGY METHOD 02/05/2025 7:29 AM [facility] Eosinophils Absolute 0.70(H) 0.00 - 0.50 K/mcL LAB HEMETOLOGY METHOD 02/05/2025 7:29 AM [facility] Basophils Absolute 0.05 0.00 - 0.20 K/mcL LAB HEMETOLOGY METHOD 02/05/2025 7:29 AM [facility] Immature Granulocytes Absolute 0.08(H) 0.00 - 0.03 K/mcL LAB HEMETOLOGY METHOD 02/05/2025 7:29 AM EDT [facility] Blood Venous blood specimen / Unknown Venipuncture / Unknown 02/05/2025 5:58 AM EDT 02/05/2025 6:15 AM EDT Antonia Chapin MD LAB BLOOD ORDERABLES Final Resul t Performing Organization Address City/[facility]/ZIP Co de Phone Number [facility] [address] [place] [address], [place] [phone] * Magnesium (02/05/2025 5:58 AM EDT) Pathologist [facility] Magnesium 1.9 1.9 - 2.6 mg/dL LAB CHEMISTRY METHOD 02/05/2025 6:56 AM EDT [facility] Blood Venous blood specimen / Unknown Venipuncture / Unknown 02/05/2025 5:58 AM EDT 02/05/2025 6:15 AM EDT Antonia Chapin MD LAB BLOOD ORDERABLES Final Resul t Performing Organization Address [facility] [place]/[facility]/ZIP Co de Phone Number [facility] [address] [place] [address], [place] [phone] * (ABNORMAL) Basic metabolic panel (02/05/2025 5:58 AM EDT) Pathologist [facility] Sodium 136 133 - 145 mmol/L LAB CHEMISTRY METHOD 02/05/2025 6:56 AM EDT [facility] Potassium 4.1 3.5 - 5.5 mmol/L LAB CHEMISTRY METHOD 02/05/2025 6:56 AM EDT [facility] Chloride 106 96 - 110 mmol/L LAB CHEMISTRY METHOD 02/05/2025 6:56 AM EDT [facility] CO2 24 21 - 32 mmol/L LAB CHEMISTRY METHOD 02/05/2025 6:56 AM EDT [facility] Anion Gap 6 3 - 11 LAB CHEMISTRY METHOD 02/05/2025 6:56 AM EDT [facility] Glucose 116(H) 70 - 100 mg/dL LAB CHEMISTRY METHOD 02/05/2025 6:56 AM T [facility] BUN 26(H) 5 - 25 mg/dL LAB CHEMISTRY METHOD 02/05/2025 6:56 AM EDT [facility] Creatinine 1.95(H) 0.50 - 1.10 mg/dL LAB CHEMISTRY METHOD 02/05/2025 6:56 AM EDT [facility] eGFR 26(L) >=60 mL/min/1. 73m2 LAB CHEMISTRY METHOD 02/05/2025 6:56 AM EDT [facility] Comment:Calculation based on the??Chronic Kidney Disease Epidemiology Collaboration (CKD-EPI) equation refit??without adjustment for race. BUN/Creatinine Ratio 13.3 LAB CHEMISTRY METHOD 02/05[facility]25 6[facility] Calcium 8.3(L) 8.5 - 10.5 mg/dL LAB CHEMISTRY METHOD 02/05/2025 6:56 AM [facility] Blood Venous blood specimen / Unknown Venipuncture / Unknown 02/05/2025 5:58 AM EDT 02/05/2025 6:15 AM EDT us Antonia Chapin MD LAB BLOOD ORDERABLES Final Resul t [facility] [address] [place] [address], * (ABNORMAL) POCT Glucose, blood (02/04/2025 7:48 PM EDT) Glucose POCT 130(H) 70 - 100 mg/dL 02/04/2025 7:49 PM EDT [facility] POCT Comment RN Notified 02/04/2025 7:49 PM EDT [facility] Blood Capillary blood specimen / Unknown 02/04/2025 7:48 PM EDT 02/04/2025 7:49 PM EDT us Antonia Chapin MD LAB POINT OF CARE TE ST DOCKED DEVICE UNSOLICITED RESULTS Final Result Performing Organization Address [facility] [place]/[facility]/ZIP Co de Phone Number [facility] [address] [place] [address], [place] [phone] * (ABNORMAL) POCT Glucose, blood (02/04/2025 3:14 PM EDT) Glucose POCT 223(H) 70 - 100 mg/dL 02/04/2025 3:14 PM EDT [facility] Blood Capillary blood specimen / Unknown 02/04/2025 3:14 PM EDT 02/04/2025 3:15 PM EDT us Antonia Chapin MD LAB POINT OF CARE TE ST DOCKED DEVICE UNSOLICITED RESULTS Final Result Performing Organization Address [facility] [place]/[facility]/ZIP Co de Phone Number [facility] [address] [place] [address], [place] [phone] * (ABNORMAL) POCT Glucose, blood (02/04/2025 11:04 AM EDT) Glucose POCT 206(H) 70 - 100 mg/dL 02/04/2025 11:04 AM EDT [facility] Blood Capillary blood specimen / Unknown 02/04/2025 11:04 AM EDT 02/04/2025 11:06 AM EDT us Antonia Chapin MD LAB POINT OF CARE TE ST DOCKED DEVICE UNSOLICITED RESULTS Final Result Performing Organization Address [facility] [place]/[facility]/ZIP Co de Phone Number [facility] [address] [place] [address], [place] [phone] * POCT Glucose, blood (02/04/2025 7:27 AM EDT) [facility] Glucose POCT 96 70 - 100 mg/dL 02/04/2025 7:27 AM EDT [facility] Blood Capillary blood specimen / Unknown 02/04/2025 7:27 AM EDT 02/04/2025 7:29 AM EDT us Antonia Chapin MD LAB POINT OF CARE TE ST DOCKED DEVICE UNSOLICITED RESULTS Final Result [facility] [address] [place] [address], * (ABNORMAL) CBC auto differential (02/04/2025 6:49 AM EDT) [facility] WBC 7.8 4.8 - 10.8 K/mcL LAB HEMETOLOGY METHOD 02/04/2025 7:54 AM EDT [facility] RBC 2.90(L) 3.80 - 4.80 M/mcL LAB HEMETOLOGY METHOD 02/04/2025 7:54 AM [facility] Hemoglobin 8.6(L) 11.5 - 16.0 g/dL LAB HEMETOLOGY METHOD 02/04/2025 7:54 AM [facility] Hematocrit 27.9(L) 35.0 - 47.0 % LAB HEMETOLOGY METHOD 02/04/2025 7:[facility] MCV 96.5 79.0 - 98.0 FL LAB HEMETOLOGY METHOD 02/04/2025 7:54 AM [facility] MCH 29.8 27.0 - 32.0 pcg LAB HEMETOLOGY METHOD 02/04/2025 7:54 AM [facility] MCHC 30.8(L) 32.0 - 37.0 g/dL LAB HEMETOLOGY METHOD 02/04/2025 7:54 AM [facility] RDW 20.7(H) 11.0 - 15.0 % LAB HEMETOLOGY METHOD 02/04/2025 7:54 AM [facility] Platelets 281 130 - 400 K/mcL LAB HEMETOLOGY METHOD 02/04/2025 7:54 AM [facility] MPV 9.5 7.0 - 11.0 FL LAB HEMETOLOGY METHOD 02/04/2025 7:54 AM [facility] NRBC 0.4 <1.0 % LAB HEMETOLOGY METHOD 02/04/2025 7:54 AM [facility] NRBC Absolute 0.03 <0.10 K/mcL LAB HEMETOLOGY METHOD 02/04/2025 7:54 AM [facility] Neutrophils Relative 64.4 % LAB HEMETOLOGY METHOD 02/04/2025 7:54 AM [facility] Lymphocytes Relative 12.1 % LAB HEMETOLOGY METHOD 02/04/2025 7:54 AM [facility] Monocytes Relative 11.5 % LAB HEMETOLOGY METHOD 02/04/2025 7:54 AM [facility] Eosinophils Relative 10.1 % LAB HEMETOLOGY METHOD 02/04/2025 7:54 AM [facility] Basophils Relative 0.8 % LAB HEMETOLOGY METHOD 02/04/2025 7:54 AM [facility] Immature Granulocytes Relative 1.1 % LAB HEMETOLOGY METHOD 02/04/2025 7:54 AM [facility] Neutrophils Absolute 5.04 1.50 - 7.00 K/mcL LAB HEMETOLOGY METHOD 02/04/2025 7:54 AM [facility] Lymphocytes Absolute 0.95(L) 1.00 - 5.00 K/mcL LAB HEMETOLOGY METHOD 02/04/2025 7:54 AM EDT [facility] Monocytes Absolute 0.90 0.20 - 1.00 K/[facility] LAB HEMETOLOGY METHOD 02/04/2025 7:54 AM EDT [facility] Eosinophils Absolute 0.79(H) 0.00 - 0.50 K/[facility] LAB HEMETOLOGY METHOD 02/04/2025 7:54 AM EDT [facility] Basophils Absolute 0.06 0.00 - 0.20 K/[facility] LAB HEMETOLOGY METHOD 02/04/2025 7:54 AM EDT [facility] Immature Granulocytes Absolute 0.09(H) 0.00 - 0.03 K/[facility] LAB HEMETOLOGY METHOD 02/04/2025 7:54 AM T [facility] Blood Venous blood specimen / Unknown Venipuncture / Unknown 02/04/2025 6:49 AM EDT 02/04/2025 7:15 AM EDT us Antonia Chapin MD LAB BLOOD ORDERABLES Final Resul t [facility] [address] [place] [address], * (ABNORMAL) Basic metabolic panel (02/04/2025 6:49 AM EDT) Sodium 136 133 - 145 mmol/L LAB CHEMISTRY METHOD 02/04/2025 8:01 AM EDT [facility] Potassium 3.5 3.5 - 5.5 mmol/L LAB CHEMISTRY METHOD 02/04/2025 8:01 AM [facility] Chloride 106 96 - 110 mmol/L LAB CHEMISTRY METHOD 02/04/2025 8:01 AM [facility] CO2 24 21 - 32 mmol/L LAB CHEMISTRY METHOD 02/04/2025 8:01 AM EDT [facility] Anion Gap 6 3 - 11 LAB CHEMISTRY METHOD 02/04/2025 8:01 AM EDT [facility] Glucose 82 70 - 100 mg/dL LAB CHEMISTRY METHOD 02/04/2025 8:01 AM [facility] BUN 26(H) 5 - 25 mg/dL LAB CHEMISTRY METHOD 02/04/2025 8:01 AM [facility] Creatinine 1.99(H) 0.50 - 1.10 mg/dL LAB CHEMISTRY METHOD 02/04/2025 8:01 AM [facility] eGFR 25(L) >=60 mL/min/1. 73m2 LAB CHEMISTRY METHOD 02/04/2025 8:01 AM [facility] Comment:Calculation based on the??Chronic Kidney Disease Epidemiology Collaboration (CKD-EPI) equation refit??without adjustment for race. BUN/Creatinine Ratio 13.1 LAB CHEMISTRY METHOD 02/04/2025 8:01 AM [facility] Calcium 8.0(L) 8.5 - 10.5 mg/dL LAB CHEMISTRY METHOD 02/04/2025 8:01 AM [facility] Blood Venous blood specimen / Unknown Venipuncture / Unknown 02/04/2025 6:49 AM EDT 02/04/2025 7:15 AM EDT us Antonia Chapin MD LAB BLOOD ORDERABLES Final Resul t [facility] [address] [place] [address], * Transfuse RBC (02/04/2025 1:45 AM EDT) us Antonia Chapin MD BLOOD TRANSFUSION ORDERABLES Fin al Result * Transfuse RBC: 1 Units (02/04/2025 1:45 AM EDT) us Antonia Chapin MD BLOOD TRANSFUSION ORDERABLES Fin al Result * Transfuse RBC (02/03/2025 10:06 PM EDT) us Antonia Chapin MD BLOOD TRANSFUSION ORDERABLES Fin al Result * Transfuse RBC: 1 Units (02/03/2025 10:06 PM EDT) us Antonia Chapin MD BLOOD TRANSFUSION ORDERABLES Fin al Result * (ABNORMAL) POCT Glucose, blood (02/03/2025 8:13 PM EDT) [facility] Glucose POCT 317(H) 70 - 100 mg/dL 02/03/2025 8:15 PM EDT [facility] POCT Comment RN Notified 02/03/2025 8:15 PM EDT [facility] Blood Capillary blood specimen / Unknown 02/03/2025 8:13 PM EDT 02/03/2025 8:16 PM EDT us Antonia Chapin MD LAB POINT OF CARE TE ST DOCKED DEVICE UNSOLICITED RESULTS Final Result [facility] [address] [place] [address], [place] [phone] * Prepare RBC: 1 Units (02/03/2025 4:53 PM EDT) Pathologist [facility] Product Code [id number] 02/04/2025 9:54 AM EDT [facility] Unit Number [id number] 02/05/20 9:54 AM EDT [facility] Crossmatch Compatible 02/03/2025 10:52 PM EDT [facility] Dispense Status Released From Crossmatch 02/04/2025 9:54 AM EDT [facility] Unit ABO Rh ONEG 02/04/2025 9:54 AM EDT [facility] Unit Expiration Date Time [id number] 02/04/2025 9:54 AM EDT [facility] Unit Blood Type [id number] 02/04/2025 9:54 AM EDT [facility] [facility] Blood Venous blood specimen / Unknown 02/03/2025 4:53 PM EDT 02/03/2025 9:40 AM EDT us Antonia Chapin MD BLOOD BANK PRODUCT ORDERABLES Fi nal Result Performing Organization Address [facility] Co de Phone Number [facility] [address] [place] [address], [place] [phone] * (ABNORMAL) Hemoglobin and hematocrit (02/03/2025 3:43 PM EDT) Hemoglobin 7.1(L) 11.5 - 16.0 g/dL LAB HEMETOLOGY METHOD 02/03/2025 4:07 PM EDT [facility] Hematocrit 24.0(L) 35.0 - 47.0 % LAB HEMETOLOGY METHOD 02/03/2025 4:07 PM EDT [facility] Blood Venous blood specimen / Unknown Venipuncture / Unknown 02/03/2025 3:43 PM EDT 02/03/2025 4:01 PM EDT us Antonia Chapin MD LAB BLOOD ORDERABLES Final Resul t Performing Organization Address [facility]/ZIP Co de Phone Number [facility] [address] [place] [address], [place] [phone] * (ABNORMAL) POCT Glucose, blood (02/03/2025 3:16 PM EDT) Glucose POCT 239(H) 70 - 100 mg/dL 02/03/2025 3:16 PM EDT [facility] Blood Capillary blood specimen / Unknown 02/03/2025 3:16 PM EDT 02/03/2025 3:17 PM EDT us Antonia Chapin MD LAB POINT OF CARE TE ST DOCKED DEVICE UNSOLICITED RESULTS Final Result Performing Organization Address [facility]/ZIP Co de Phone Number [facility] [address] [place] [address], [place] [phone] * (ABNORMAL) POCT Glucose, blood (02/03/2025 11:40 AM EDT) Glucose POCT 202(H) 70 - 100 mg/dL 02/03/2025 11:42 AM EDT [facility] Blood Capillary blood specimen / Unknown 02/03/2025 11:40 AM EDT 02/03/2025 11:43 AM EDT Antonia Chapin MD LAB POINT OF CARE TE ST DOCKED DEVICE UNSOLICITED RESULTS Final Result Performing Organization Address [facility]/ZIP Co de Phone Number [facility] [address] [place] [address], [place] [phone] * XR Chest 1 View (02/03/2025 11:17 AM EDT) Anatomical Region Laterality Modality Body Radiographic Ronna ging 02/03/2025 11:3 4 AM EDT Impressions 02/03/2025 11:35 AM EDT Decreased interstitial prominence suspected to represent improving interstitial edema. -------- FINAL REPORT -------- Dictated By: Uziel Kaplan Dictated Date: 02/03/2025 11:34 ET Assigned Physician: Uziel Kaplan Reviewed and Electronically Signed By: Uziel Kaplan Signed Date: 02/03/2025 11:35 ET Workstation ID: [id number] Transcribed By: Self Edit Transcribed Date: 02/03/2025 [...] Signed Date: 02/03/2025 11:35 ET Workstation ID: [id number] Transcribed By: Self Edit Transcribed Date: 02/03/2025 11:34 ET Antonia Chapin MD IMG XR PROCEDURES Final Result * (ABNORMAL) POCT Glucose, blood (02/03/2025 9:49 AM EDT) [facility] Glucose POCT 159(H) 70 - 100 mg/dL 02/03/2025 9:50 AM EDT [facility] Blood Capillary blood specimen / Unknown 02/03/2025 9:49 AM EDT 02/03/2025 9:51 AM EDT Antonia Chapin MD LAB POINT OF CARE TE ST DOCKED DEVICE UNSOLICITED RESULTS Final Result [facility] [address] [place] [address], [place] [phone] * Type and screen (02/03/2025 9:36 AM EDT) ABO Group O 02/03/2025 10:41 AM EDT [facility] Rh Type Negative 02/03/2025 10:41 AM EDT [facility] Antibody Screen Negative 02/03/2025 10:41 AM EDT [facility] Blood Venous blood specimen / Unknown Venipuncture / Unknown 02/03/2025 9:36 AM EDT 02/03/2025 9:40 AM EDT us Antonia Chapin MD LAB BLOOD BANK TEST ORDERABLES F inal Result [facility] [address] [place] [address], * Prepare RBC: 2 Units (02/03/2025 9:14 AM EDT) Product Code [id number] 02/03/2025 12:18 PM EDT [facility] Unit Number [id number] [facility]20 [facility] Cross[facility] Compatible 02/03/2025 10:53 AM EDT [facility] Dispense Status Transfused 02/03/2025 12:18 PM [facility] Unit ABO Rh ONEG 02/03/2025 12:18 PM [facility] Unit Expiration Date Time [id number] 02/03/2025 12:18 PM T [facility] Unit Blood Type 9500 02/03/2025 12:18 PM [facility] Product Code [id number] 02/03/2025 5:37 PM [facility] Unit Number [id number] 02/04/20 25 5:37 PM T [facility] Crossmatch Compatible 02/03/2025 10:53 AM EDT [facility] Dispense Status Transfused 02/03/2025 5:37 PM EDT [facility] Unit ABO Rh ONEG 02/03/2025 5:37 PM EDT [facility] Unit Expiration Date Time [id number] 02/03/2025 5:37 PM EDT [facility] Unit Blood Type 9500 02/03/2025 5:37 PM EDT [facility] Blood Venous blood specimen / Unknown 02/03/2025 9:14 AM EDT 02/03/2025 9:40 AM EDT us Antonia Chapin MD BLOOD BANK PRODUCT ORDERABLES Fi nal Result [facility] [address] [place] [address], * (ABNORMAL) CBC auto differential (02/03/2025 6:56 AM EDT) WBC 7.4 4.8 - 10.8 K/mcL LAB HEMETOLOGY METHOD 02/03/2025 8:13 AM [facility] RBC 2.00(L) 3.80 - 4.80 M/[facility] LAB HEMETOLOGY METHOD 02/03/2025 8:13 AM [facility] Hemoglobin 6.1(LL) 11.5 - 16.0 g/dL LAB HEMETOLOGY METHOD 02/03/2025 8:13 AM [facility] Hematocrit 20.8(L) 35.0 - 47.0 % LAB HEMETOLOGY METHOD 02/03/2025 8:13 AM [facility] MCV 103.0(H) 79.0 - 98.0 FL LAB HEMETOLOGY METHOD 02/03/2025 8:13 AM [facility] MCH 30.3 27.0 - 32.0 pcg LAB HEMETOLOGY METHOD 02/03/2025 8:13 AM [facility] MCHC 29.5(L) 32.0 - 37.0 g/dL LAB HEMETOLOGY METHOD 02/03/2025 8:13 AM [facility] RDW 18.6(H) 11.0 - 15.0 % LAB HEMETOLOGY METHOD 02/03/2025 8:13 AM [facility] Platelets 282 130 - 400 K/mcL LAB HEMETOLOGY METHOD 02/03/2025 8:13 AM [facility] MPV 9.7 7.0 - 11.0 FL LAB HEMETOLOGY METHOD 02/03/2025 8:13 AM [facility] NRBC 0.0 <1.0 % LAB HEMETOLOGY METHOD 02/03/2025 8:13 AM [facility] NRBC Absolute 0.00 <0.10 K/mcL LAB HEMETOLOGY METHOD 02/03/2025 8:13 AM [facility] Neutrophils Relative 71.1 % LAB HEMETOLOGY METHOD 02/03/2025 8:13 AM [facility] Lymphocytes Relative 13.0 % LAB HEMETOLOGY METHOD 02/03/2025 8:13 AM [facility] Monocytes Relative 12.7 % LAB HEMETOLOGY METHOD 02/03/2025 8:13 AM [facility] Eosinophils Relative 2.0 % LAB HEMETOLOGY METHOD 02/03/2025 8:13 AM [facility] Basophils Relative 0.4 % LAB HEMETOLOGY METHOD 02/03/2025 8:13 AM [facility] Immature Granulocytes Relative 0.8 % LAB HEMETOLOGY METHOD 02/03/2025 8:13 AM EDT [facility] Neutrophils Absolute 5.24 1.50 - 7.00 K/mcL LAB HEMETOLOGY METHOD 02/03/2025 8:13 AM EDT [facility] Lymphocytes Absolute 0.96(L) 1.00 - 5.00 K/mcL LAB HEMETOLOGY METHOD 02/03/2025 8:13 AM EDT [facility] Monocytes Absolute 0.94 0.20 - 1.00 K/mcL LAB HEMETOLOGY METHOD 02/03/2025 8:13 AM EDT [facility] Eosinophils Absolute 0.15 0.00 - 0.50 K/mcL LAB HEMETOLOGY METHOD 02/03/2025 8:13 AM EDT [facility] Basophils Absolute 0.03 0.00 - 0.20 K/mcL LAB HEMETOLOGY METHOD 02/03/2025 8:13 AM EDT [facility] Immature Granulocytes Absolute 0.06(H) 0.00 - 0.03 K/mcL LAB HEMETOLOGY METHOD 02/03/2025 8:13 AM EDT [facility] Blood Venous blood specimen / Unknown Venipuncture / Unknown 02/03/2025 6:56 AM EDT 02/03/2025 7:30 AM EDT us Antonia Chapin MD LAB BLOOD ORDERABLES Final Resul t [facility] [address] [place] [address], * Magnesium (02/03/2025 6:56 AM EDT) Magnesium 2.1 1.9 - 2.6 mg/dL LAB CHEMISTRY METHOD 02/03/2025 8:10 AM EDT [facility] Blood Venous blood specimen / Unknown Venipuncture / Unknown 02/03/2025 6:56 AM EDT 02/03/2025 7:30 AM EDT us Antonia Chapin MD LAB BLOOD ORDERABLES Final Resul t [facility] [address] [place] [address], [place] [phone] * (ABNORMAL) Basic metabolic panel (02/03/2025 6:56 AM EDT) Sodium 137 133 - 145 mmol/L LAB CHEMISTRY METHOD 02/03/2025 8:10 AM [facility] Potassium 3.9 3.5 - 5.5 mmol/L LAB CHEMISTRY METHOD 02/03/2025 8:10 AM [facility] Chloride 107 96 - 110 mmol/L LAB CHEMISTRY METHOD 02/03/2025 8:10 AM [facility] CO2 21 21 - 32 mmol/L LAB CHEMISTRY METHOD 02/03/2025 8:10 AM [facility] Anion Gap 9 3 - 11 LAB CHEMISTRY METHOD 02/03/2025 8:10 AM [facility] Glucose 188(H) 70 - 100 mg/dL LAB CHEMISTRY METHOD 02/03/2025 8:10 AM [facility] BUN 27(H) 5 - 25 mg/dL LAB CHEMISTRY METHOD 02/03/2025 8:10 AM [facility] Creatinine 2.01(H) 0.50 - 1.10 mg/dL LAB CHEMISTRY METHOD 02/03/2025 8:10 AM [facility] eGFR 25(L) >=60 mL/min/1. 73m2 LAB CHEMISTRY METHOD 02/03/2025 8:10 AM [facility] Comment:Calculation based on the??Chronic Kidney Disease Epidemiology Collaboration (CKD-EPI) equation refit??without adjustment for race. BUN/Creatinine Ratio 13.4 LAB CHEMISTRY METHOD 02/03/2025 8:10 AM [facility] Calcium 8.0(L) 8.5 - 10.5 mg/dL LAB CHEMISTRY METHOD 02/03/2025 8:10 AM EDT [facility] Blood Venous blood specimen / Unknown Venipuncture / Unknown 02/03/2025 6:56 AM EDT 02/03/2025 7:30 AM EDT Antonia Chapin MD LAB BLOOD ORDERABLES Final Resul t Performing Organization Address [facility]/ZIP Co de Phone Number [facility] [address] [place] [address], [place] [phone] * (ABNORMAL) Transferrin (02/03/2025 6:56 AM EDT) Pathologist [facility] Transferrin 119(L) 200 - 360 mg/dL 02/05/2025 2:58 AM EDT [facility] Comment: Test performed at [facility], [email or web address] , [place], [place] ??[address] ? [phone] Sara Hook MD, PhD - [employer] Blood Venous blood specimen / Unknown Venipuncture / Unknown 02/03/2025 6:56 AM EDT 02/03/2025 7:30 AM EDT Antonia Chapin MD LAB BLOOD ORDERABLES Final Resul t Performing Organization Address [facility]/ZIP Co de Phone Number [facility] [address] [place] [address] * ECG 12 lead (02/03/2025 12:56 AM EDT) Ventricular Rate ECG 95 BPM GEMUSE Atrial Rate 95 BPM GEMUSE P-R Interval 160 ms GEMUSE QRS Duration 114 ms GEMUSE Q-T Interval 430 ms GEMUSE QTc 540 ms GEMUSE R Spofford 37 degrees GEMUSE T Sp[place] 131 degrees GEMUSE ECG Interpretation Critical Test Result: Long QTc Sinus rhythm with Premature atrial complexes in a pattern of bigeminy Low voltage QRS Incomplete left bundle branch block Nonspecific T wave abnormality Abnormal ECG When compared with ECG of 11-APR-2025 08:37, Incomplete left bundle branch block is now Present Confirmed by HELADIO FLOREZ ([id number]) on 02/03/2025 11:05:22 AM GEMUSE 02/03/2025 12:5 6 AM EDT 02/03/2025 11:05 AM EDT Shraddha PEPE ECG ORDERABLES Final Result Performing Organization Address [facility] [place]/ZIP Co de Phone Number G[facility] * (ABNORMAL) Troponin I high sensitivity (02/02/2025 11:33 PM EDT) [facility] High Sensitivity Troponin I 336(HH) <=54 ng/L LAB CHEMISTRY METHOD 02/03/2025 12:29 AM EDT [facility] Blood Venous blood specimen / Unknown Venipuncture / Unknown 02/02/2025 11:33 PM EDT 02/02/2025 11:42 PM EDT Narrative [facility] - 02/03/2025 12:29 AM EDT High levels of biotin in samples may falsely decrease hsTroponin values. ??Use caution when interpreting hsTroponin results in patients taking biotin who exhibit renal impairment (eGFR <60) or in patients taking more than 20 mg/day of biotin. Sh[facility] LAB BLOOD ORDERABLES Final Re sult Performing Organization Address [facility]/ZIP Co de Phone Number [facility] [address] [place] [address], * (ABNORMAL) POCT Glucose, blood (02/02/2025 7:46 PM EDT) [facility] Glucose POCT 319(H) 70 - 100 mg/dL 02/02/2025 7:46 PM EDT [facility] POCT Comment RN Notified 02/02/2025 7:46 PM EDT [facility] Blood Capillary blood specimen / Unknown 02/02/2025 7:46 PM EDT 02/02/2025 7:47 PM EDT us Antonia Chapin MD LAB POINT OF CARE TE ST DOCKED DEVICE UNSOLICITED RESULTS Final Result Performing Organization Address [facility]/ZIP Co de Phone Number [facility] [address] [place] [address], [place] [phone] * (ABNORMAL) POCT Glucose, blood (02/02/2025 3:52 PM EDT) Glucose POCT 295(H) 70 - 100 mg/dL 02/02/2025 3:52 PM EDT [facility] Blood Capillary blood specimen / Unknown 02/02/2025 3:52 PM EDT 02/02/2025 3:53 PM EDT us Antonia Chapin MD LAB POINT OF CARE TE ST DOCKED DEVICE UNSOLICITED RESULTS Final Result Performing Organization Address [facility]/ZIP Co de Phone Number [facility] [address] [place] [address], [place] [phone] * (ABNORMAL) POCT Glucose, blood (02/02/2025 11:28 AM EDT) Glucose POCT 317(H) 70 - 100 mg/dL 02/02/2025 11:29 AM EDT [facility] Blood Capillary blood specimen / Unknown 02/02/2025 11:28 AM EDT 02/02/2025 11:30 AM EDT us Antonia Chapin MD LAB POINT OF CARE TE ST DOCKED DEVICE UNSOLICITED RESULTS Final Result Performing Organization Address [facility]/ZIP Co de Phone Number [facility] [address] [place] [address], [place] [phone] * MRSA molecular study (02/02/2025 11:13 AM EDT) [facility] MRSA Screen PCR Not Detected Not Detected LAB MICROBIOLOGY METHOD 02/02/2025 2:06 PM EDT [facility] Swab Both anterior nares / Unknown Non-blood Collection / Unknown 02/02/2025 11:13 AM EDT 02/02/2025 11:49 AM EDT us Antonia Chapin MD LAB MICROBIOLOGY - GENERAL ORDER JANESSA Final Result Performing Organization Address [facility]/ZIP Co de Phone Number [facility] [address] [place] [address], [place] [phone] * Legionella antigen urine, EIA (02/02/2025 11:12 AM EDT) [facility] Legionella Antigen, Ur Negative Negative 02/02/2025 1:26 PM EDT [facility] Urine Urine specimen from urinary conduit / Unknown Non-blood Collection / Unknown 02/02/2025 11:12 AM EDT 02/02/2025 11:49 AM EDT Narrative [facility] - 02/02/2025 1:26 PM EDT Negative for Legionella pneumophilia serogroup 1 antigen. This presumptive result suggests no current or recent infection due to L. pneumophilia serogroup 1. Culture is recommended if Legionella infection is till suspected, as other serogroups and species of Legionella are not detected by this test. us Antonia Chapin MD LAB URINE ORDERABLES Final Resul t Performing Organization Address [facility]/ZIP Co de Phone Number [facility] [address] [place] [address], [place] [phone] * (ABNORMAL) TRANSTHORACIC ECHOCARDIOGRAM (TTE) COMPLETE W/ CONTRAST (02/02/2025 10:06 AM EDT) [facility] RA Area 13.1 cm2 CV PACS RA 2D Volume 34 mL CV PACS Left Atrium Major Spofford 5.8 cm CV PACS LA Area Sys [...] Volume 50 mL CV PACS MV Deceleration [place] 4.2 m/s2 CV PACS E Wave Deceleration [...] S' 8 cm/s CV PACS RA Major Sp[place] 4.3 cm CV PACS RA Major [place] Index 2.6 2.2 - 2.8 cm/m2 CV [...] comparison. ??However, compared to echo report from [facility] from November 2024, EF is actually [...] with the patient in a supine position. Antonia Chapin MD CV ECHO PROCEDURES Final Result * ECG 12 lead (02/02/2025 8:37 AM EDT) Ventricular Rate ECG 87 BPM GEMUSE Atrial Rate 87 BPM GEMUSE P-R Interval 186 ms GEMUSE QRS Duration 116 ms GEMUSE Q-T Interval 352 ms GEMUSE QTc 423 ms GEMUSE P Wave Spofford 55 degrees GEMUSE R [place] 36 degrees GEMUSE T Sp[place] 148 degrees GEMUSE ECG Interpretation Sinus rhythm with Premature atrial complexes in a pattern of bigeminy Low voltage QRS Nonspecific T wave abnormality Abnormal ECG When compared with ECG of 01-FEB-2025 20:30, (unconfirmed) Nonspecific T wave abnormality now evident in Inferior leads Confirmed by HELADIO FLOREZ ([id number]) on 02/02/2025 2:24:55 PM GEMUSE 02/02/2025 8:37 AM EDT 02/02/2025 2:24 PM EDT Antonia Chapin MD ECG ORDERABLES Final Result G[facility] * (ABNORMAL) POCT Glucose, blood (02/02/2025 7:45 AM EDT) Glucose POCT 141(H) 70 - 100 mg/dL 02/02/2025 7:46 AM EDT [facility] Blood Capillary blood specimen / Unknown 02/02/2025 7:45 AM EDT 02/02/2025 7:48 AM EDT us Antonia Chapin MD LAB POINT OF CARE TE ST DOCKED DEVICE UNSOLICITED RESULTS Final Result Performing Organization Address [facility]/ZIP Co de Phone Number [facility] [address] [place] [address], [place] [phone] * Ferritin (02/02/2025 4:19 AM EDT) Ferritin 181 8 - 252 ng/mL LAB CHEMISTRY METHOD 02/02/2025 11:08 AM EDT [facility] Blood Venous blood specimen / Unknown Venipuncture / Unknown 02/02/2025 4:19 AM EDT 02/02/2025 4:58 AM EDT us Antonia Chapin MD LAB BLOOD ORDERABLES Final Resul t Performing Organization Address [facility]/ZIP Co de Phone Number [facility] [address] [place] [address], [place] [phone] * (ABNORMAL) Iron and TIBC (02/02/2025 4:19 AM EDT) Iron 20(L) 40 - 150 mcg/dL LAB CHEMISTRY METHOD 02/02/2025 11:08 AM EDT [facility] TIBC 172(L) 250 - 450 mcg/dL LAB CHEMISTRY METHOD 02/02/2025 11:08 AM EDT [facility] Iron Saturation 12(L) 15 - 50 % LAB CHEMISTRY METHOD 02/02/2025 11:08 AM EDT [facility] Blood Venous blood specimen / Unknown Venipuncture / Unknown 02/02/2025 4:19 AM EDT 02/02/2025 4:58 AM EDT us Antonia Chapin MD LAB BLOOD ORDERABLES Final Resul t [facility] [address] [place] [address], * (ABNORMAL) CBC auto differential (02/02/2025 4:19 AM EDT) WBC 7.7 4.8 - 10.8 K/mcL LAB HEMETOLOGY METHOD 02/02/2025 5:11 AM EDT [facility] RBC 2.30(L) 3.80 - 4.80 M/mcL LAB HEMETOLOGY METHOD 02/02/2025 5:11 AM EDT [facility] Hemoglobin 7.1(L) 11.5 - 16.0 g/dL LAB HEMETOLOGY METHOD 02/02/2025 5:[facility] Hematocrit 23.8(L) 35.0 - 47.0 % LAB HEMETOLOGY METHOD 02/02/2025 5:11 [facility] MCV 103.5(H) 79.0 - 98.0 FL LAB HEMETOLOGY METHOD 02/02/2025 5:11 [facility] MCH 30.9 27.0 - 32.0 pcg LAB HEMETOLOGY METHOD 02/02/2025 5:11 AM EDT [facility] MCHC 29.8(L) 32.0 - 37.0 g/dL LAB HEMETOLOGY METHOD 02/02/2025 5:11 AM EDT [facility] RDW 18.8(H) 11.0 - 15.0 % LAB HEMETOLOGY METHOD 02/02/2025 5:11 [facility] Platelets 312 130 - 400 K/mcL LAB HEMETOLOGY METHOD 02/02/2025 5:11 [facility] MPV 9.5 7.0 - 11.0 FL LAB HEMETOLOGY METHOD 02/02/2025 5:11 AM [facility] NRBC 0.0 <1.0 % LAB HEMETOLOGY METHOD 02/02/2025 5:11 AM [facility] NRBC Absolute 0.00 <0.10 K/mcL LAB HEMETOLOGY METHOD 02/02/2025 5:11 AM [facility] Neutrophils Relative 72.3 % LAB HEMETOLOGY METHOD 02/02/2025 5:11 AM [facility] Lymphocytes Relative 13.3 % LAB HEMETOLOGY METHOD 02/02/2025 5:11 AM [facility] Monocytes Relative 12.3 % LAB HEMETOLOGY METHOD 02/02/2025 5:11 AM [facility] Eosinophils Relative 0.8 % LAB HEMETOLOGY METHOD 02/02/2025 5:11 AM [facility] Basophils Relative 0.4 % LAB HEMETOLOGY METHOD 02/02/2025 5:11 AM [facility] Immature Granulocytes Relative 0.9 % LAB HEMETOLOGY METHOD 02/02/2025 5:11 AM [facility] Neutrophils Absolute 5.58 1.50 - 7.00 K/mcL LAB HEMETOLOGY METHOD 02/02/2025 5:11 AM [facility] Lymphocytes Absolute 1.03 1.00 - 5.00 K/mcL LAB HEMETOLOGY METHOD 02/02/2025 5:11 AM [facility] Monocytes Absolute 0.95 0.20 - 1.00 K/mcL LAB HEMETOLOGY METHOD 02/02/2025 5:11 AM [facility] Eosinophils Absolute 0.06 0.00 - 0.50 K/mcL LAB HEMETOLOGY METHOD 02/02/2025 5:11 AM [facility] Basophils Absolute 0.03 0.00 - 0.20 K/mcL LAB HEMETOLOGY METHOD 02/02/2025 5:11 AM EDT [facility] Immature Granulocytes Absolute 0.07(H) 0.00 - 0.03 K/[facility] LAB HEMETOLOGY METHOD 02/02/2025 5:11 AM EDT [facility] Blood Venous blood specimen / Unknown Venipuncture / Unknown 02/02/2025 4:19 AM EDT 02/02/2025 4:59 AM EDT Antonia Chapin MD LAB BLOOD ORDERABLES Final Resul t Performing Organization Address [facility]/ZIP Co de Phone Number [facility] [address] [place] [address], * (ABNORMAL) Troponin I high sensitivity (02/02/2025 4:19 AM EDT) [facility] High Sensitivity Troponin I 306(HH) <=54 ng/L LAB CHEMISTRY METHOD 02/02/2025 5:52 AM EDT [facility] Blood Venous blood specimen / Unknown Venipuncture / Unknown 02/02/2025 4:19 AM EDT 02/02/2025 4:58 AM EDT Narrative [facility] - 02/02/2025 5:52 AM EDT High levels of biotin in samples may falsely decrease hsTroponin values. ??Use caution when interpreting hsTroponin results in patients taking biotin who exhibit renal impairment (eGFR <60) or in patients taking more than 20 mg/day of biotin. Shraddha PEPE LAB BLOOD ORDERABLES Final Re sult Performing Organization Address [facility]/ZIP Co de Phone Number [facility] [address] [place] [address], [place] [phone] * Magnesium (02/02/2025 4:19 AM EDT) [facility] Magnesium 2.3 1.9 - 2.6 mg/dL LAB CHEMISTRY METHOD 02/02/2025 5:25 AM [facility] Blood Venous blood specimen / Unknown Venipuncture / Unknown 02/02/2025 4:19 AM EDT 02/02/2025 4:58 AM EDT us Antonia Chapin MD LAB BLOOD ORDERABLES Final Resul t [facility] [address] [place] [address], * (ABNORMAL) Basic metabolic panel (02/02/2025 4:19 AM EDT) Pathologist [facility] Sodium 140 133 - 145 mmol/L LAB CHEMISTRY METHOD 02/02/2025 5:25 AM [facility] Potassium 3.9 3.5 - 5.5 mmol/L LAB CHEMISTRY METHOD 02/02/2025 5:25 AM [facility] Chloride 107 96 - 110 mmol/L LAB CHEMISTRY METHOD 02/02/2025 5:25 AM [facility] CO2 23 21 - 32 mmol/L LAB CHEMISTRY METHOD 02/02/2025 5:25 AM [facility] Anion Gap 10 3 - 11 LAB CHEMISTRY METHOD 02/02/2025 5:25 AM [facility] Glucose 102(H) 70 - 100 mg/dL LAB CHEMISTRY METHOD 02/02/2025 5:25 AM [facility] BUN 21 5 - 25 mg/dL LAB CHEMISTRY METHOD 02/02/2025 5:25 AM [facility] Creatinine 1.76(H) 0.50 - 1.10 mg/dL LAB CHEMISTRY METHOD 02/02/2025 5:25 AM [facility] eGFR 29(L) >=60 mL/min/1. 73m2 LAB CHEMISTRY METHOD 02/02/2025 5:25 AM EDT [facility] Comment:Calculation based on the??Chronic Kidney Disease Epidemiology Collaboration (CKD-EPI) equation refit??without adjustment for race. BUN/Creatinine Ratio 11.9 LAB CHEMISTRY METHOD 02/02/2025 5:25 AM EDT [facility] Calcium 8.3(L) 8.5 - 10.5 mg/dL LAB CHEMISTRY METHOD 02/02/2025 5:25 AM EDT [facility] Blood Venous blood specimen / Unknown Venipuncture / Unknown 02/02/2025 4:19 AM EDT 02/02/2025 4:58 AM EDT us Antonia Chapin MD LAB BLOOD ORDERABLES Final Resul t Performing Organization Address [facility] Co de Phone Number [facility] [address] [place] [address], [place] [phone] * ECG-Annotated (02/02/2025) Provider Onbase ECG ORDERABLES Final Result * (ABNORMAL) POCT Glucose, blood (02/01/2025 8:51 PM EDT) Glucose POCT 186(H) 70 - 100 mg/dL 02/01/2025 8:51 PM EDT [facility] Blood Capillary blood specimen / Unknown 02/01/2025 8:51 PM EDT 02/01/2025 8:52 PM EDT us Antonia Chapin MD LAB POINT OF CARE TE ST DOCKED DEVICE UNSOLICITED RESULTS Final Result Performing Organization Address [facility], [place]/ZIP Co de Phone Number [facility] [address] [place] [address], [place] [phone] * ECG 12 lead (02/01/2025 8:30 PM EDT) Ventricular Rate ECG 108 BPM GEMUSE Atrial Rate 108 BPM GEMUSE P-R Interval 96 ms GEMUSE QRS Duration 116 ms GEMUSE Q-T Interval 350 ms GEMUSE QTc 470 ms GEMUSE P Wave [place] 158 degrees GEMUSE R [place] 31 degrees GEMUSE T [place] 80 degrees GEMUSE ECG Interpretation Normal sinus rhythm Nonspecific T wave abnormality Abnormal ECG When compared with ECG of 01-FEB-2025 16:03, (unconfirmed) Normal sinus rhythm has replaced Atrial fibrillation T wave inversion no longer evident in Inferior leads Nonspecific T wave abnormality now evident in Anterior leads Confirmed by HELADIO FLOREZ ([id number]) on 02/02/2025 2:24:12 PM GEMUSE 02/01/2025 8:30 PM EDT 02/02/2025 2:24 PM EDT us Shraddha PEPE ECG ORDERABLES Final Result Performing Organization Address [facility] [place]/ZIP Co de Phone Number GEMUSE * (ABNORMAL) Troponin I high sensitivity (02/01/2025 6:44 PM EDT) [facility] High Sensitivity Troponin I 295(HH) <=54 ng/L LAB CHEMISTRY METHOD 02/01/2025 8:09 PM EDT [facility] Blood Venous blood specimen / Unknown Venipuncture / Unknown 02/01/2025 6:44 PM EDT 02/01/2025 7:01 PM EDT Narrative [facility] - 02/01/2025 8:09 PM EDT High levels of biotin in samples may falsely decrease hsTroponin values. ??Use caution when interpreting hsTroponin results in patients taking biotin who exhibit renal impairment (eGFR <60) or in patients taking more than 20 mg/day of biotin. Shraddha PEPE LAB BLOOD ORDERABLES Final Re sult Performing Organization Address [facility]/ZIP Co de Phone Number [facility] [address] [place] [address], [place] [phone] * (ABNORMAL) CBC auto differential (02/01/2025 4:36 PM EDT) [facility] WBC 14.6(H) 4.8 - 10.8 K/mcL LAB HEMETOLOGY METHOD 02/01/2025 4:52 PM EDT [facility] RBC 2.50(L) 3.80 - 4.80 M/mcL LAB HEMETOLOGY METHOD 02/01/2025 4:52 PM EDT [facility] Hemoglobin 7.8(L) 11.5 - 16.0 g/dL LAB HEMETOLOGY METHOD 02/[facility]2025 [facility] Hematocrit 25.9(L) 35.0 - 47.0 % LAB HEMETOLOGY METHOD 02/01/2025 4:[facility] MCV 102.8(H) 79.0 - 98.0 FL LAB HEMETOLOGY METHOD 02/01/2025 4:52 PM EDT [facility] MCH 31.0 27.0 - 32.0 pcg LAB HEMETOLOGY METHOD 02/01/2025 4:[facility] MCHC 30.1(L) 32.0 - 37.0 g/dL LAB HEMETOLOGY METHOD 02/01/2025 4:52 PM [facility] RDW 18.5(H) 11.0 - 15.0 % LAB HEMETOLOGY METHOD 02/01/2025 4:52 PM EDT [facility] Platelets 371 130 - 400 K/mcL LAB HEMETOLOGY METHOD 02/01/2025 4:52 [facility] MPV 9.1 7.0 - 11.0 FL LAB HEMETOLOGY METHOD 02/01/2025 4:52 [facility] NRBC 0.0 <1.0 % LAB HEMETOLOGY METHOD 02/01/2025 4:52 [facility] NRBC Absolute 0.00 <0.10 K/mcL LAB HEMETOLOGY METHOD 02/01/2025 4:52 PM EDT [facility] Neutrophils Relative 85.8 % LAB HEMETOLOGY METHOD 02/01/2025 4:52 PM [facility] Lymphocytes Relative 4.0 % LAB HEMETOLOGY METHOD 02/01/2025 4:52 [facility] Monocytes Relative 8.5 % LAB HEMETOLOGY METHOD 02/01/2025 4:52 PM [facility] Eosinophils Relative 0.1 % LAB HEMETOLOGY METHOD 02/01/2025 4:52 PM [facility] Basophils Relative 0.3 % LAB HEMETOLOGY METHOD 02/01/2025 4:52 PM [facility] Immature Granulocytes Relative 1.3 % LAB HEMETOLOGY METHOD 02/01/2025 4:52 PM [facility] Neutrophils Absolute 12.57(H) 1.50 - 7.00 K/mcL LAB HEMETOLOGY METHOD 02/01/2025 4:52 PM [facility] Lymphocytes Absolute 0.58(L) 1.00 - 5.00 K/mcL LAB HEMETOLOGY METHOD 02/01/2025 4:52 PM [facility] Monocytes Absolute 1.24(H) 0.20 - 1.00 K/mcL LAB HEMETOLOGY METHOD 02/01/2025 4:52 PM [facility] Eosinophils Absolute 0.02 0.00 - 0.50 K/mcL LAB HEMETOLOGY METHOD 02/01/2025 4:52 PM [facility] Basophils Absolute 0.04 0.00 - 0.20 K/mcL LAB HEMETOLOGY METHOD 02/01/2025 4:52 PM [facility] Immature Granulocytes Absolute 0.19(H) 0.00 - 0.03 K/mcL LAB HEMETOLOGY METHOD 02/01/2025 4:52 PM EDT [facility] Blood Venous blood specimen / Unknown Venipuncture / Unknown 02/01/2025 4:36 PM EDT 02/01/2025 4:45 PM EDT Shraddha PEPE LAB BLOOD ORDERABLES Final Re sult Performing Organization Address [facility]/ZIP Co de Phone Number [facility] [address] [place] [address], [place] [phone] * (ABNORMAL) Troponin I high sensitivity (02/01/2025 4:36 PM EDT) [facility] High Sensitivity Troponin I 236(HH) <=54 ng/L LAB CHEMISTRY METHOD 02/01/2025 6:06 PM EDT [facility] Blood Venous blood specimen / Unknown Venipuncture / Unknown 02/01/2025 4:36 PM EDT 02/01/2025 4:43 PM EDT Narrative [facility] - 02/01/2025 6:06 PM EDT High levels of biotin in samples may falsely decrease hsTroponin values. ??Use caution when interpreting hsTroponin results in patients taking biotin who exhibit renal impairment (eGFR <60) or in patients taking more than 20 mg/day of biotin. Shraddha PEPE LAB BLOOD ORDERABLES Final Re sult Performing Organization Address [facility] [place]/ZIP Co de Phone Number [facility] [address] [place] [address], [place] [phone] * Magnesium (02/01/2025 4:28 PM EDT) [facility] Magnesium 2.3 1.9 - 2.6 mg/dL LAB CHEMISTRY METHOD 02/01/2025 5:12 PM EDT [facility] Blood Venous blood specimen / Unknown Venipuncture / Unknown 02/01/2025 4:28 PM EDT 02/01/2025 4:44 PM EDT us Shraddha PEPE LAB BLOOD ORDERABLES Final Re sult [facility] [address] [place] [address], * (ABNORMAL) Basic metabolic panel (02/01/2025 4:28 PM EDT) Sodium 137 133 - 145 mmol/L LAB CHEMISTRY METHOD 02/01/2025 5:12 PM T [facility] Potassium 4.5 3.5 - 5.5 mmol/L LAB CHEMISTRY METHOD 02/01/2025 5:12 PM [facility] Chloride 106 96 - 110 mmol/L LAB CHEMISTRY METHOD 02/01/2025 5:12 PM [facility] CO2 22 21 - 32 mmol/L LAB CHEMISTRY METHOD 02/01/2025 5:12 PM [facility] Anion Gap 9 3 - 11 LAB CHEMISTRY METHOD 02/01/2025 5:12 PM [facility] Glucose 282(H) 70 - 100 mg/dL LAB CHEMISTRY METHOD 02/01/2025 5:12 PM [facility] BUN 21 5 - 25 mg/dL LAB CHEMISTRY METHOD 02/01/2025 5:12 PM [facility] Creatinine 1.79(H) 0.50 - 1.10 mg/dL LAB CHEMISTRY METHOD 02/01/2025 5:12 PM [facility] eGFR 29(L) >=60 mL/min/1. 73m2 LAB CHEMISTRY METHOD 02/01/2025 5:12 PM [facility] Comment:Calculation based on the??Chronic Kidney Disease Epidemiology Collaboration (CKD-EPI) equation refit??without adjustment for race. BUN/Creatinine Ratio 11.7 LAB CHEMISTRY METHOD 02/01/2025 5:12 PM EDT [facility] Calcium 8.1(L) 8.5 - 10.5 mg/dL LAB CHEMISTRY METHOD 02/01/2025 5:12 PM EDT [facility] Blood Venous blood specimen / Unknown Venipuncture / Unknown 02/01/2025 4:28 PM EDT 02/01/2025 4:44 PM EDT us Shraddha PEPE LAB BLOOD ORDERABLES Final Re sult Performing Organization Address [facility]/ZIP Co de Phone Number [facility] [address] [place] [address], [place] [phone] * Light blue tube (02/01/2025 4:19 PM EDT) Extra Tube Hold for add-ons. 02/01/2025 6:03 PM EDT [facility] Comment:Auto resulted. Blood Venous blood specimen / Unknown 02/01/2025 4:19 PM EDT 02/01/2025 4:48 PM EDT us Antonia Chapin MD LAB BLOOD ORDERABLES Final Resul t Performing Organization Address [facility]/ZIP Co de Phone Number [facility] [address] [place] [address], [place] [phone] * (ABNORMAL) Arterial blood gas (02/01/2025 4:14 PM EDT) pH, Arterial 7.42 7.35 - 7.45 pH 02/01/2025 4:23 PM EDT [facility] pCO2, Arterial 30(L) 35 - 45 mmHg 02/01/2025 4:23 PM EDT [facility] pO2, Arterial 61(L) 80 - 100 mmHg 02/01/2025 4:23 PM EDT [facility] HCO3, Arterial 21.5(L) 22.0 - 26.0 mmol/L 02/01/2025 4:23 PM EDT [facility] O2 Sat, Arterial 94.6(L) 95.0 - 98.0 % 02/01/2025 4:23 PM EDT [facility] Base Excess, Arterial -4.3(L) -2.0 - 2.0 mmol/L 02/01/2025 4:23 PM EDT [facility] Rafael Test Pass Pass, Unresponsi ve, Line 02/01/2025 4:23 PM EDT [facility] FIO2 40.00 02/01/2025 4:23 PM EDT [facility] Comment:bipap Blood Arterial blood specimen / Unknown Arterial Puncture / Unknown 02/01/2025 4:14 PM EDT 02/01/2025 4:19 PM EDT us Antonia Chapin MD LAB BLOOD ORDERABLES Final Resul t [facility] [address] [place] [address], * ECG 12 lead (02/01/2025 4:03 PM EDT) Ventricular Rate ECG 121 BPM GEMUSE Atrial Rate 117 BPM GEMUSE QRS Duration 88 ms GEMUSE Q-T Interval 326 ms GEMUSE QTc 462 ms GEMUSE R [place] 30 degrees GEMUSE T [place] -54 degrees GEMUSE ECG Interpretation Atrial fibrillation with rapid ventricular response with premature ventricular or aberrantly conducted complexes Nonspecific T wave abnormality Abnormal ECG When compared with ECG of 31-JAN-2025 13:14, Atrial fibrillation has replaced Sinus rhythm Nonspecific T wave abnormality no longer evident in Anterior leads Confirmed by HELADIO FLOREZ ([id number]) on 02/02/2025 2:22:57 PM GEMUSE 02/01/2025 4:03 PM EDT 02/02/2025 2:22 PM EDT us Antonia Chapin MD ECG ORDERABLES Final Result Performing Organization Address [facility] [place]/ZIP Co de Phone Number GEMUSE * (ABNORMAL) POCT Glucose, blood (02/01/2025 4:02 PM EDT) Glucose POCT 279(H) 70 - 100 mg/dL 02/01/2025 4:02 PM EDT [facility] Blood Capillary blood specimen / Unknown 02/01/2025 4:02 PM EDT 02/01/2025 4:04 PM EDT us Antonia Chapin MD LAB POINT OF CARE TE ST DOCKED DEVICE UNSOLICITED RESULTS Final Result Performing Organization Address [facility] de Phone Number [facility] [address] [place] [address], [place] [phone] * (ABNORMAL) POCT Glucose, blood (02/01/2025 3:45 PM EDT) Glucose POCT 248(H) 70 - 100 mg/dL 02/01/2025 3:47 PM EDT [facility] Blood Capillary blood specimen / Unknown 02/01/2025 3:45 PM EDT 02/01/2025 3:48 PM EDT us Antonia Chapin MD LAB POINT OF CARE TE ST DOCKED DEVICE UNSOLICITED RESULTS Final Result Performing Organization Address [facility] [place] Co de Phone Number [facility] [address] [place] [address], [place] [phone] * XR Chest 1 View (02/01/2025 2:46 PM EDT) Anatomical Region Laterality Modality Body Radiographic Ronna ging 02/01/2025 3:10 PM EDT Impressions 02/01/2025 3:11 PM EDT FINDINGS/IMPRESSION: Worsening diffuse opacities of right greater than left lungs presumably representing moderate congestive heart failure. ??Stable cardiomediastinal contours and the left lung postsurgical changes with suprahilar/upper lobe scarring. -------- FINAL REPORT -------- Dictated By: Trung Toure Dictated Date: 02/01/2025 15:10 ET Assigned Physician: Trung Toure Reviewed and Electronically Signed By: Trung Toure Signed Date: 02/01/2025 15:11 ET Workstation ID: [id number] Transcribed By: Self Edit Transcribed Date: 02/01/2025 15:10 ET Narrative 02/01/2025 3:11 PM EDT XR CHEST 1 VIEW INDICATION: SOB, abn CXR, heart failure suspected TECHNIQUE: XR CHEST 1 VIEW COMPARISON: No priors available. Procedure Note Trung Toure MD - 02/01/2025 XR CHEST 1 VIEW INDICATION: SOB, abn CXR, heart failure suspected TECHNIQUE: XR CHEST 1 VIEW COMPARISON: No priors available. IMPRESSION: FINDINGS/IMPRESSION: Worsening diffuse opacities of right greater thanleft lungs presumably representing moderate congestive heart failure.Stable cardiomediastinal contours and the left lung postsurgical changeswith suprahilar/upper lobe scarring. -------- FINAL REPORT -------- Dictated By: Trung Toure Dictated Date: 02/01/2025 15:10 ET Assigned Physician: Trung Toure Reviewed and Electronically Signed By: Trung Toure Signed Date: 02/01/2025 15:11 ET Workstation ID: [id number] Transcribed By: Self Edit Transcribed Date: 02/01/2025 15:10 ET us Antonia Chapin MD IMG XR PROCEDURES Final Result * (ABNORMAL) POCT Glucose, blood (02/01/2025 10:58 AM EDT) Pathologist [facility] Glucose POCT 348(H) 70 - 100 mg/dL 02/01/2025 10:59 AM EDT [facility] Blood Capillary blood specimen / Unknown 02/01/2025 10:58 AM EDT 02/01/2025 11:01 AM EDT us Antonia Chapin MD LAB POINT OF CARE TE ST DOCKED DEVICE UNSOLICITED RESULTS Final Result Performing Organization Address [facility] [place]/ZIP Co de Phone Number [facility] [address] [place] [address], [place] [phone] * (ABNORMAL) POCT Glucose, blood (02/01/2025 9:23 AM EDT) Glucose POCT 403(HH) 70 - 100 mg/dL 02/01/2025 11:02 AM EDT [facility] Blood Capillary blood specimen / Unknown 02/01/2025 9:23 AM EDT 02/01/2025 11:03 AM EDT us Antonia Chapin MD LAB POINT OF CARE TE ST DOCKED DEVICE UNSOLICITED RESULTS Final Result Performing Organization Address [facility] Co de Phone Number [facility] [address] [place] [address], [place] [phone] * (ABNORMAL) POCT Glucose, blood (02/01/2025 8:18 AM EDT) [facility] Glucose POCT 354(H) 70 - 100 mg/dL 02/01/2025 8:30 AM EDT [facility] Blood Capillary blood specimen / Unknown 02/01/2025 8:18 AM EDT 02/01/2025 8:31 AM EDT us Antonia Chapin MD LAB POINT OF CARE TE ST DOCKED DEVICE UNSOLICITED RESULTS Final Result Performing Organization Address [facility]/ZIP Co de Phone Number [facility] [address] [place] [address], [place] [phone] * (ABNORMAL) Complete blood count (02/01/2025 5:42 AM EDT) WBC 8.3 4.8 - 10.8 K/mcL LAB HEMETOLOGY METHOD 02/01/2025 6:21 AM [facility] RBC 2.30(L) 3.80 - 4.80 M/mcL LAB HEMETOLOGY METHOD 02/01/2025 6:21 AM [facility] Hemoglobin 7.2(L) 11.5 - 16.0 g/dL LAB HEMETOLOGY METHOD 02/01/2025 6:21 AM [facility] Hematocrit 23.7(L) 35.0 - 47.0 % LAB HEMETOLOGY METHOD 02/01/2025 6:21 AM [facility] MCV 103.0(H) 79.0 - 98.0 FL LAB HEMETOLOGY METHOD 02/01/2025 6:21 AM [facility] MCH 31.3 27.0 - 32.0 pcg LAB HEMETOLOGY METHOD 02/01/2025 6:21 AM [facility] MCHC 30.4(L) 32.0 - 37.0 g/dL LAB HEMETOLOGY METHOD 02/01/2025 6:21 AM [facility] RDW 18.6(H) 11.0 - 15.0 % LAB HEMETOLOGY METHOD 02/01/2025 6:21 AM [facility] Platelets 304 130 - 400 K/mcL LAB HEMETOLOGY METHOD 02/01/2025 6:21 AM [facility] MPV 9.4 7.0 - 11.0 FL LAB HEMETOLOGY METHOD 02/01/2025 6:21 AM [facility] NRBC 0.0 <1.0 % LAB HEMETOLOGY METHOD 02/01/2025 6:21 AM [facility] NRBC Absolute 0.00 <0.10 K/mcL LAB HEMETOLOGY METHOD 02/01/2025 6:21 AM [facility] Blood Venous blood specimen / Unknown Venipuncture / Unknown 02/01/2025 5:42 AM EDT 02/01/2025 5:57 AM EDT us Xavier Hooper MD LAB BLOOD ORDERABLES Final Resu lt [facility] [address] [place] [address], [place] [phone] * (ABNORMAL) Basic metabolic panel (02/01/2025 5:42 AM EDT) Sodium 134 133 - 145 mmol/L LAB CHEMISTRY METHOD 02/01/2025 6:25 AM [facility] Potassium 4.2 3.5 - 5.5 mmol/L LAB CHEMISTRY METHOD 02/01/2025 6:25 AM [facility] Chloride 105 96 - 110 mmol/L LAB CHEMISTRY METHOD 02/01/2025 6:25 AM [facility] CO2 24 21 - 32 mmol/L LAB CHEMISTRY METHOD 02/01/2025 6:25 AM [facility] Anion Gap 5 3 - 11 LAB CHEMISTRY METHOD 02/01/2025 6:25 AM [facility] Glucose 207(H) 70 - 100 mg/dL LAB CHEMISTRY METHOD 02/01/2025 6:25 AM [facility] BUN 18 5 - 25 mg/dL LAB CHEMISTRY METHOD 02/01/2025 6:25 AM [facility] Creatinine 1.44(H) 0.50 - 1.10 mg/dL LAB CHEMISTRY METHOD 02/01/2025 6:25 AM [facility] eGFR 37(L) >=60 mL/min/1. 73m2 LAB CHEMISTRY METHOD 02/01/2025 6:25 AM [facility] Comment:Calculation based on the??Chronic Kidney Disease Epidemiology Collaboration (CKD-EPI) equation refit??without adjustment for race. BUN/Creatinine Ratio 12.5 LAB CHEMISTRY METHOD 02/01/2025 6:25 AM EDT [facility] Calcium 8.2(L) 8.5 - 10.5 mg/dL LAB CHEMISTRY METHOD 02/01/2025 6:25 AM EDT [facility] Blood Venous blood specimen / Unknown Venipuncture / Unknown 02/01/2025 5:42 AM EDT 02/01/2025 5:58 AM EDT us Xavier Hooper MD LAB BLOOD ORDERABLES Final Resu lt Performing Organization Address [facility]/ZIP Co de Phone Number [facility] [address] [place] [address], [place] [phone] * Lactate, with reflex (01/31/2025 9:54 PM EDT) LACTIC ACID 1.2 0.4 - 2.0 mmol/L LAB CHEMISTRY METHOD 01/31/2025 10:28 PM EDT [facility] Blood Venous blood specimen / Unknown Venipuncture / Unknown 01/31/2025 9:54 PM EDT 01/31/2025 9:59 PM EDT us Shawnee PEPE LAB BLOOD ORDERABLES Final Re sult [facility] [address] [place] [address], [place] [phone] * (ABNORMAL) POCT Glucose, blood (01/31/2025 8:54 PM EDT) Glucose POCT 148(H) 70 - 100 mg/dL 01/31/2025 8:54 PM EDT [facility] Blood Capillary blood specimen / Unknown 01/31/2025 8:54 PM EDT 01/31/2025 8:56 PM EDT us Jay Castillo MD LAB POINT OF CARE T EST DOCKED DEVICE UNSOLICITED RESULTS Final Result [facility] [address] [place] [address], [place] [phone] * Respiratory virus panel molecular study (01/31/2025 6:38 PM EDT) Pathologist [facility] Adenovirus Detection by PCR Not Detected Not Detected LAB MICROBIOLOGY METHOD 01/31/2025 7:39 PM EDT [facility] Influenza A PCR Not Detected Not Detected LAB MICROBIOLOGY METHOD 01/31/2025 7:39 PM EDT [facility] Influenza B PCR Not Detected Not Detected LAB MICROBIOLOGY METHOD 01/31/2025 7:39 PM EDT [facility] Coronavirus 229E Not Detected Not Detected LAB MICROBIOLOGY METHOD 01/31/2025 7:39 PM EDT [facility] Coronavirus HKU1 Not Detected Not Detected LAB MICROBIOLOGY METHOD 01/31/2025 7:39 PM EDT [facility] Coronavirus OC43 Not Detected Not Detected LAB MICROBIOLOGY METHOD 01/31/2025 7:39 PM EDT [facility] Coronavirus NL63 Not Detected Not Detected LAB MICROBIOLOGY METHOD 01/31/2025 7:39 PM EDT [facility] Parainfluenza Virus 1 Not Detected Not Detected LAB MICROBIOLOGY METHOD 01/31/2025 7:39 PM EDT [facility] Parainfluenza Virus 2 Not Detected Not Detected LAB MICROBIOLOGY METHOD 01/31/2025 7:39 PM EDT [facility] Parainfluenza Virus 3 Not Detected Not Detected LAB MICROBIOLOGY METHOD 01/31/2025 7:39 PM EDT [facility] Parainfluenza Virus 4 Not Detected Not Detected LAB MICROBIOLOGY METHOD 01/31/2025 7:39 PM EDT [facility] RSV PCR Not Detected Not Detected LAB MICROBIOLOGY METHOD 01/31/2025 7:39 PM EDT [facility] Human Metapneumovirus A and B Not Detected Not Detected LAB MICROBIOLOGY METHOD 01/31/2025 7:39 PM EDT [facility] Rhinovirus/Entero virus Not Detected Not Detected LAB MICROBIOLOGY METHOD 01/31/2025 7:39 PM EDT [facility] Bordetella pertussis Not Detected Not Detected LAB MICROBIOLOGY METHOD 01/31/2025 7:39 PM EDT [facility] Bordetella parapertussis Not Detected Not Detected LAB MICROBIOLOGY METHOD 01/31/2025 7:39 PM EDT [facility] Mycoplasma pneumo by PCR Not Detected Not Detected LAB MICROBIOLOGY METHOD 01/31/2025 7:39 PM EDT [facility] Chlamydia pneumoniae Not Detected Not Detected LAB MICROBIOLOGY METHOD 01/31/2025 7:39 PM EDT [facility] SARS COV-2 Not Detected Not Detected LAB MICROBIOLOGY METHOD 01/31/2025 7:39 PM EDT [facility] Swab Both anterior nares / Unknown Non-blood Collection / Unknown 01/31/2025 6:38 PM EDT 01/31/2025 6:44 PM EDT [facility] - 01/31/2025 7:39 PM EDT Testing was performed using the Veratect Respiratory Pathogen PCR Assay. All results must [...] that are below the limit of detection. us Shawnee PEPE LAB MICROBIOLOGY - GENERAL OR DERABLES Final Result [facility] [address] [place] [address], [place] [phone] * Blood Culture, Peripheral Draw #1 (01/31/2025 6:38 PM EDT) Culture, Blood No growth at 5 days LAB MICROBIOLOGY METHOD 02/05/2025 7:01 PM EDT [facility] Blood Venous blood specimen / Unknown Venipuncture / Unknown 01/31/2025 6:38 PM EDT 01/31/2025 6:45 PM EDT Shaw[place] PEPE LAB MICROBIOLOGY - GENERAL OR DERABLES Final Result Performing Organization Address [facility]/ZIP Co de Phone Number [facility] [address] [place] [address], [place] [phone] * (ABNORMAL) Lactate, with reflex (01/31/2025 6:27 PM EDT) LACTIC ACID 2.3(H) 0.4 - 2.0 mmol/L LAB CHEMISTRY METHOD 01/31/2025 7:18 PM EDT [facility] Blood Venous blood specimen / Unknown Venipuncture / Unknown 01/31/2025 6:27 PM EDT 01/31/2025 6:44 PM EDT Shaw[place] PEPE LAB BLOOD ORDERABLES Final Re sult Performing Organization Address [facility]/ZIP Co de Phone Number [facility] [address] [place] [address], [place] [phone] * Blood Culture, Peripheral Draw #2 (01/31/2025 6:27 PM EDT) Culture, Blood No growth at 5 days LAB MICROBIOLOGY METHOD 02/05/2025 7:01 PM EDT [facility] Blood Venous blood specimen / Unknown Venipuncture / Unknown 01/31/2025 6:27 PM EDT 01/31/2025 6:45 PM EDT us Shawnee PEPE LAB MICROBIOLOGY - GENERAL OR DERABLES Final Result [facility] [address] [place] [address], [place] [phone] * CT Abdomen Pelvis w Contrast (01/31/2025 [...] within normal limits. Bladder decompressed by a Anderson catheter. No intraperitoneal free air or fluid [...] within normal limits. Bladder decompressed by a Anderson catheter. No intraperitoneal free air or fluid [...] by: Frederick Garcia MD on 01/31/2025 18:10:20 [place] PEPE [facility] [place] PROCEDURES Final Resul t * (ABNORMAL) Culture urine (01/31/2025 4:00 PM EDT) Culture, Urine >100,000 CFU/mL Escherichia coli(A) ALEXEY 02/02/2025 9:39 AM EDT [facility] Comment: This is an edited [...] ORDE RABLES Final Result Performing Organization Address [facility]/ZIP Co de Phone Number [facility] [address] [place] [address], [place] [phone] * [place] urine culture tube (01/31/2025 4:00 PM EDT) Pathologist [facility] Extra Tube Hold for add-ons. 01/31/2025 6:01 PM EDT [facility] Comment:Auto resulted. Urine Urine specimen obtained by clean catch procedure / Unknown Non-blood Collection / Unknown 01/31/2025 4:00 PM EDT 01/31/2025 4:06 PM EDT us Xavier Hooper MD LAB URINE ORDERABLES Final Resu lt Performing Organization Address [facility] [place]/ZIP Co de Phone Number [facility] [address] [place] [address], [place] [phone] * (ABNORMAL) Urinalysis with reflex microscopic and culture (01/31/2025 4:00 PM EDT) Pathologist [facility] Specific [place] Urine 1.016 1.003 - 1.030 LAB URINALYSIS [...] 01/31/2025 4:44 PM [facility] WBC, Urine >4,000(H) 0 - 4 /HPF LAB URINALYSIS - AUTOMATED METHOD 01/31/2025 4:44 PM [facility] Squamous Epithelial, Urine >100(H) 0 - 60 /LPF LAB URINALYSIS - AUTOMATED METHOD 01/31/2025 4:44 PM EDT [facility] Non-Squamous Epithelial, Urine Rare Transitional epithelial cells. /LPF LAB URINALYSIS - AUTOMATED METHOD 01/31/2025 4:44 PM EDT [facility] Bacteria, Urine Few(A) Negative /HPF LAB URINALYSIS - AUTOMATED METHOD 01/31/2025 4:44 PM EDT [facility] Hyaline Casts, Urine 5.0(H) 0 - 3 /LPF LAB URINALYSIS - AUTOMATED METHOD 01/31/2025 4:44 PM EDT [facility] Urine Urine specimen obtained by clean catch procedure / Unknown Non-blood Collection / Unknown 01/31/2025 4:00 PM EDT 01/31/2025 4:06 PM EDT us Xavier Hooper MD LAB URINE ORDERABLES Final Resu lt [facility] [address] [place] [address], [place] [phone] * XR Chest 2 Views (01/31/2025 2:12 [...] Signed Date: 01/31/2025 14:53 ET Workstation ID: [id number] Transcribed By: Self Edit Transcribed Date: 01/31/2025 [...] Signed Date: 01/31/2025 14:53 ET Workstation ID: [id number] Transcribed By: Self Edit Transcribed Date: 01/31/2025 14:53 ET [facility] IMG XR PROCEDURES Final Resul t * (ABNORMAL) B-type natriuretic peptide (01/31/2025 1:38 PM EDT) BNP 629(H) <=100 pcg/mL LAB CHEMISTRY METHOD 01/31/2025 2:54 PM EDT [facility] Blood Venous blood specimen / Unknown Venipuncture / Unknown 01/31/2025 1:38 PM EDT 01/31/2025 2:04 PM EDT [facility] LAB BLOOD ORDERABLES Final Re sult [facility] [address] [place] [address], [place] [phone] * Ammonia (01/31/2025 1:15 PM EDT) Ammonia 27 11 - 35 mcmol/L LAB CHEMISTRY METHOD 01/31/2025 1:54 PM EDT [facility] Blood Venous blood specimen / Unknown Venipuncture / Unknown 01/31/2025 1:15 PM EDT 01/31/2025 1:23 PM EDT [facility] LAB BLOOD ORDERABLES Final Re sult Performing Organization Address City/[facility]/ZIP Co de Phone Number [facility] [address] [place] [address], [place] [phone] * ECG 12 lead (01/31/2025 1:14 PM EDT) [facility] Ventricular Rate ECG 90 BPM GEMUSE Atrial Rate 90 BPM GEMUSE P-R Interval 144 ms GEMUSE QRS Duration 116 ms GEMUSE Q-T Interval 384 ms GEMUSE QTc 469 ms GEMUSE R Spofford 21 degrees GEMUSE T Spoff[place] -52 degrees GEMUSE ECG Interpretation Sinus rhythm with Premature atrial complexes in a pattern of bigeminy Incomplete left bundle branch block Nonspecific T wave abnormality Abnormal ECG When compared with ECG of 31-JAN-2025 11:07, QT has lengthened Confirmed by MD Hope Christopher ([id number]) on 02/02/2025 1:04:03 AM GEMUSE 01/31/2025 1:14 PM EDT 02/02/2025 1:04 AM EDT [facility] ECG ORDERABLES Final Result Performing Organization Address [facility] [place]/[facility]/ZIP Co de Phone Number GEMUSE * (ABNORMAL) Troponin I high sensitivity (01/31/2025 1:08 PM EDT) [facility] High Sensitivity Troponin I 117(HH) <=54 ng/L LAB CHEMISTRY METHOD 01/31/2025 2:29 PM EDT [facility] Blood Venous blood specimen / Unknown Venipuncture / Unknown 01/31/2025 1:08 PM EDT 01/31/2025 1:23 PM EDT Narrative [facility] - 01/31/2025 2:29 PM EDT High levels of biotin in samples may falsely decrease hsTroponin values. ??Use caution when interpreting hsTroponin results in patients taking biotin who exhibit renal impairment (eGFR <60) or in patients taking more than 20 mg/day of biotin. Xavier Hooper MD LAB BLOOD ORDERABLES Final Resu lt [facility] ([facility] [address] [place] [address], * CT Head wo Contrast (01/31/2025 11:36 [...] fracture. -------- FINAL REPORT -------- Dictated By: ANAIS TONEY Dictated Date: 01/31/2025 11:55 ET Assigned Physician: ANAIS TONEY Reviewed and Electronically Signed By: ANAIS TONEY Signed Date: 01/31/2025 11:56 ET Workstation ID: [id number] Transcribed By: Self Edit Transcribed Date: 01/31/2025 [...] well evaluated on this exam. Procedure Note Anais Toney MD - 01/31/2025 PROCEDURE: Head and [...] fracture. -------- FINAL REPORT -------- Dictated By: ANAIS TONEY Dictated Date: 01/31/2025 11:55 ET Assigned Physician: ANAIS TONEY Reviewed and Electronically Signed By: ANAIS TONEY Signed Date: 01/31/2025 11:56 ET Workstation ID: [id number] Transcribed By: Self Edit Transcribed Date: 01/31/2025 11:55 ET Alejandro Begum DO IMG CT PROCEDURES Final Result * CT Cervical Spine wo Contrast (01/31/2025 [...] fracture. -------- FINAL REPORT -------- Dictated By: ANAIS TONEY Dictated Date: 01/31/2025 11:49 ET Assigned Physician: ANAIS TONEY Reviewed and Electronically Signed By: ANAIS TONEY Signed Date: 01/31/2025 11:55 ET Workstation ID: [id number] Transcribed By: Self Edit Transcribed Date: 01/31/2025 [...] well evaluated on this exam. Procedure Note Anais Toney MD - 01/31/2025 PROCEDURE: Head and [...] fracture. -------- FINAL REPORT -------- Dictated By: ANAIS TONEY Dictated Date: 01/31/2025 11:49 ET Assigned Physician: ANAIS TONEY Reviewed and Electronically Signed By: ANAIS TONEY Signed Date: 01/31/2025 11:55 ET Workstation ID: [id number] Transcribed By: Self Edit Transcribed Date: 01/31/2025 11:49 ET us Alejandro Begum DO IMG CT PROCEDURES Final Result * (ABNORMAL) Hemoglobin A1c (01/31/2025 11:11 AM EDT) Hemoglobin A1C 9.7(H) <6.5 % LAB CHEMISTRY METHOD 01/31/2025 10:04 PM EDT [facility] Mean Bld Glu Estim. 232 mg/dL LAB CHEMISTRY METHOD 01/31/2025 10:04 PM EDT [facility] Blood Venous blood specimen / Unknown Venipuncture / Unknown 01/31/2025 11:11 AM EDT 01/31/2025 11:47 AM EDT Jay Castillo MD LAB BLOOD ORDERABLES Final Result Performing Organization Address [facility] [place]/[facility]/ZIP Co de Phone Number [facility] [address] [place] [address], * (ABNORMAL) C-reactive protein (01/31/2025 11:11 AM EDT) C-Reactive Protein 10.50(H) <=0.50 mg/dL LAB CHEMISTRY METHOD 01/31/2025 8:44 PM EDT [facility] Blood Venous blood specimen / Unknown Venipuncture / Unknown 01/31/2025 11:11 AM EDT 01/31/2025 11:47 AM EDT us Jay Castillo MD LAB BLOOD ORDERABLES Final Result Performing Organization Address City/[facility]/ZIP Co de Phone Number [facility] [address] [place] [address], * (ABNORMAL) Procalcitonin (01/31/2025 11:11 AM EDT) Procalcitonin 0.23(H) <=0.16 ng/mL LAB CHEMISTRY METHOD 02/01/2025 8:34 AM EDT [facility] Blood Venous blood specimen / Unknown Venipuncture / Unknown 01/31/2025 11:11 AM EDT 01/31/2025 11:47 AM EDT Narrative [facility] - 02/01/2025 8:34 AM EDT [...] BLOOD ORDERABLES Final Result Performing Organization Address City/State/[facility] Co de Phone Number [facility] [address] [place] [address], [place] [phone] * Thyroid stimulating hormone with reflex to free t4 and free t3 (TSH Reflex) (01/31/2025 11:11 AM EDT) TSH 2.80 0.40 - 4.00 mcIU/mL LAB CHEMISTRY METHOD 02/01/2025 4:53 PM EDT [facility] Blood Venous blood specimen / Unknown Venipuncture / Unknown 01/31/2025 11:11 AM EDT 01/31/2025 11:47 AM EDT [facility] LAB BLOOD ORDERABLES Final Re sult [facility] [address] [place] [address], [place] [phone] * (ABNORMAL) Hepatic function panel (01/31/2025 11:11 AM EDT) Total Protein 5.9(L) 6.0 - 8.0 g/dL LAB CHEMISTRY METHOD 01/31/2025 2:38 PM EDT [facility] Albumin 2.2(L) 3.2 - 5.0 g/dL LAB CHEMISTRY METHOD 01/31/2025 2:38 PM EDT [facility] Total Bilirubin 0.5 0.0 - 1.4 mg/dL LAB CHEMISTRY METHOD 01/31/2025 2:38 PM EDT [facility] Bilirubin, Direct 0.1 0.0 - 0.3 mg/dL LAB CHEMISTRY METHOD 01/31/2025 2:38 PM EDT [facility] Bilirubin, Indirect 0.4 0.0 - 1.1 mg/dL LAB CHEMISTRY METHOD 01/31/2025 2:38 PM EDT [facility] ALT (SGPT) 11 10 - 60 unit/L LAB CHEMISTRY METHOD 01/31/2025 2:38 PM EDT [facility] AST (SGOT) 7(L) 10 - 42 unit/L LAB CHEMISTRY METHOD 01/31/2025 2:38 PM EDT [facility] Alkaline Phosphatase 98 42 - 121 unit/L LAB CHEMISTRY METHOD 01/31/2025 2:38 PM EDT [facility] Blood Venous blood specimen / Unknown Venipuncture / Unknown 01/31/2025 11:11 AM EDT 01/31/2025 11:47 AM EDT [facility] LAB BLOOD ORDERABLES Final Re sult [facility] [address] [place] [address], [place] [phone] * (ABNORMAL) Vitamin B12 and folate (01/31/2025 11:11 AM EDT) [facility] Vitamin B-12 189(L) 250 - 900 pcg/mL LAB CHEMISTRY METHOD 01/31/2025 2:13 PM EDT [facility] Folate 5.1 2.8 - 17.0 ng/ml LAB CHEMISTRY METHOD 01/31/2025 2:13 PM EDT [facility] Blood Venous blood specimen / Unknown Venipuncture / Unknown 01/31/2025 11:11 AM EDT 01/31/2025 11:47 AM EDT us [facility] LAB BLOOD ORDERABLES Final Re sult Performing Organization Address [facility] [place]/[facility]/ZIP Co de Phone Number [facility] [address] [place] [address], [place] [phone] * Prolactin (01/31/2025 11:11 AM EDT) [facility] Prolactin 8.50 See Comment ng/mL LAB CHEMISTRY METHOD 01/31/2025 1:36 PM EDT [facility] Comment: Prolactin Reference Ranges (ng/mL) ??Non ?2.2 - ??30.3 ? 8.1 - 347.6 ??Postmenopausal 0.7 - ??31.5 Blood Venous blood specimen / Unknown Venipuncture / Unknown 01/31/2025 11:11 AM EDT 01/31/2025 11:47 AM EDT us [facility] LAB BLOOD ORDERABLES Final Re sult [facility] [address] [place] [address], [place] [phone] * (ABNORMAL) CBC auto differential (01/31/2025 11:11 AM EDT) [facility] WBC 6.1 4.8 - 10.8 K/mcL LAB HEMETOLOGY METHOD 01/31/2025 11:57 AM [facility] RBC 2.50(L) 3.80 - 4.80 M/mcL LAB HEMETOLOGY METHOD 01/31/2025 11:57 AM [facility] Hemoglobin 7.9(L) 11.5 - 16.0 g/dL LAB HEMETOLOGY METHOD 01/31/2025 11:57 AM [facility] Hematocrit 26.0(L) 35.0 - 47.0 % LAB HEMETOLOGY METHOD 01/31/2025 11:57 AM [facility] MCV 102.4(H) 79.0 - 98.0 FL LAB HEMETOLOGY METHOD 01/31/2025 11:57 AM [facility] MCH 31.1 27.0 - 32.0 pcg LAB HEMETOLOGY METHOD 01/31/2025 11:57 AM [facility] MCHC 30.4(L) 32.0 - 37.0 g/dL LAB HEMETOLOGY METHOD 01/31/2025 11:57 AM [facility] RDW 17.8(H) 11.0 - 15.0 % LAB HEMETOLOGY METHOD 01/31/2025 11:57 AM [facility] Platelets 337 130 - 400 K/mcL LAB HEMETOLOGY METHOD 01/31/2025 11:57 AM [facility] MPV 9.4 7.0 - 11.0 FL LAB HEMETOLOGY METHOD 01/31/2025 11:57 AM [facility] NRBC 0.0 <1.0 % LAB HEMETOLOGY METHOD 01/31/2025 11:57 AM [facility] NRBC Absolute 0.00 <0.10 K/mcL LAB HEMETOLOGY METHOD 01/31/2025 11:57 AM [facility] Neutrophils Relative 63.7 % LAB HEMETOLOGY METHOD 01/31/2025 11:57 AM [facility] Lymphocytes Relative 18.8 % LAB HEMETOLOGY METHOD 01/31/2025 11:57 AM [facility] Monocytes Relative 12.4 % LAB HEMETOLOGY METHOD 01/31/2025 11:57 AM [facility] Eosinophils Relative 3.8 % LAB HEMETOLOGY METHOD 01/31/2025 11:57 AM [facility] Basophils Relative 0.3 % LAB HEMETOLOGY METHOD 01/31/2025 11:57 AM [facility] Immature Granulocytes Relative 1.0 % LAB HEMETOLOGY METHOD 01/31/2025 11:57 AM [facility] Neutrophils Absolute 3.86 1.50 - 7.00 K/mcL LAB HEMETOLOGY METHOD 01/31/2025 11:57 AM [facility] Lymphocytes Absolute 1.14 1.00 - 5.00 K/mcL LAB HEMETOLOGY METHOD 01/31/2025 11:57 AM [facility] Monocytes Absolute 0.75 0.20 - 1.00 K/mcL LAB HEMETOLOGY METHOD 01/31/2025 11:57 AM [facility] Eosinophils Absolute 0.23 0.00 - 0.50 K/mcL LAB HEMETOLOGY METHOD 01/31/2025 11:57 AM [facility] Basophils Absolute 0.02 0.00 - 0.20 K/mcL LAB HEMETOLOGY METHOD 01/31/2025 11:57 AM [facility] Immature Granulocytes Absolute 0.06(H) 0.00 - 0.03 K/mcL LAB HEMETOLOGY METHOD 01/31/2025 11:57 AM EDT [facility] Blood Venous blood specimen / Unknown Venipuncture / Unknown 01/31/2025 11:11 AM EDT 01/31/2025 11:47 AM EDT us Xavier Hooper MD LAB BLOOD ORDERABLES Final Resu lt Performing Organization Address City/[facility]/ZIP Co de Phone Number [facility] [address] [place] [address], [place] [phone] * (ABNORMAL) CK total and CKMB (01/31/2025 11:11 AM EDT) Pathologist [facility] Total CK 22 22 - 269 unit/L LAB CHEMISTRY METHOD 01/31/2025 12:35 PM EDT [facility] CK-MB <1.0(L) 1.0 - 3.6 ng/mL LAB CHEMISTRY METHOD 01/31/2025 12:35 PM EDT [facility] CK-MB Index <0.0(L) 0.0 - 5.0 LAB CHEMISTRY METHOD 01/31/2025 12:35 PM EDT [facility] Blood Venous blood specimen / Unknown Venipuncture / Unknown 01/31/2025 11:11 AM EDT 01/31/2025 11:47 AM EDT us Xavier Hooper MD LAB BLOOD ORDERABLES Final Resu lt [facility] [address] [place] [address], [place] [phone] * (ABNORMAL) Troponin I high sensitivity (01/31/2025 11:11 AM EDT) Pathologist [facility] High Sensitivity Troponin I 122(HH) <=54 ng/L LAB CHEMISTRY METHOD 01/31/2025 1:00 PM EDT [facility] Blood Venous blood specimen / Unknown Venipuncture / Unknown 01/31/2025 11:11 AM EDT 01/31/2025 11:47 AM EDT Narrative [facility] - 01/31/2025 1:00 PM EDT High levels of biotin in samples may falsely decrease hsTroponin values. ??Use caution when interpreting hsTroponin results in patients taking biotin who exhibit renal impairment (eGFR <60) or in patients taking more than 20 mg/day of biotin. us Xavier Hooper MD LAB BLOOD ORDERABLES Final Resu lt Performing Organization Address [facility] [place]/[facility]/ZIP Co de Phone Number [facility] [address] [place] [address], [place] [phone] * (ABNORMAL) Magnesium (01/31/2025 11:11 AM EDT) Magnesium 1.8(L) 1.9 - 2.6 mg/dL LAB CHEMISTRY METHOD 01/31/2025 12:28 PM EDT [facility] Blood Venous blood specimen / Unknown Venipuncture / Unknown 01/31/2025 11:11 AM EDT 01/31/2025 11:47 AM EDT us Xavier Hooper MD LAB BLOOD ORDERABLES Final Resu lt Performing Organization Address [facility] [place]/[facility]/ZIP Co de Phone Number [facility] [address] [place] [address], [place] [phone] * (ABNORMAL) Basic metabolic panel (01/31/2025 11:11 AM EDT) Sodium 134 133 - 145 mmol/L LAB CHEMISTRY METHOD 01/31/2025 12:28 PM EDT [facility] Potassium 4.4 3.5 - 5.5 mmol/L LAB CHEMISTRY METHOD 01/31/2025 12:28 PM EDT [facility] Chloride 103 96 - 110 mmol/L LAB CHEMISTRY METHOD 01/31/2025 12:28 PM EDT [facility] CO2 23 21 - 32 mmol/L LAB CHEMISTRY METHOD 01/31/2025 12:28 PM [facility] Anion Gap 8 3 - 11 LAB CHEMISTRY METHOD 01/31/2025 12:28 PM [facility] Glucose 297(H) 70 - 100 mg/dL LAB CHEMISTRY METHOD 01/31/2025 12:28 PM [facility] BUN 21 5 - 25 mg/dL LAB CHEMISTRY METHOD 01/31/2025 12:28 PM [facility] Creatinine 1.73(H) 0.50 - 1.10 mg/dL LAB CHEMISTRY METHOD 01/31/2025 12:28 PM [facility] eGFR 30(L) >=60 mL/min/1. 73m2 LAB CHEMISTRY METHOD 01/31/2025 12:28 PM [facility] Comment:Calculation based on the??Chronic Kidney Disease Epidemiology Collaboration (CKD-EPI) equation refit??without adjustment for race. BUN/Creatinine Ratio 12.1 LAB CHEMISTRY METHOD 01/31/2025 12:28 PM [facility] Calcium 8.2(L) 8.5 - 10.5 mg/dL LAB CHEMISTRY METHOD 01/31/2025 12:28 PM [facility] Blood Venous blood specimen / Unknown Venipuncture / Unknown 01/31/2025 11:11 AM EDT 01/31/2025 11:47 AM EDT us Xavier Hooper MD LAB BLOOD ORDERABLES Final Resu lt [facility] [address] [place] [address], * ECG 12 lead (01/31/2025 11:07 AM EDT) Ventricular Rate ECG 95 BPM GEM[facility] Atrial Rate 95 BPM GEMUSE P-R Interval 164 ms GEMUSE QRS Duration 118 ms GEMUSE Q-T Interval 332 ms GEMUSE QTc 417 ms GEMUSE P Wave Spofford 37 degrees GEMUSE R [place] 16 degrees GEMUSE T [place] -81 degrees GEMUSE ECG Interpretation Sinus rhythm with Premature atrial complexes in a pattern of bigeminy Incomplete left bundle branch block Nonspecific T wave abnormality Abnormal ECG No previous ECGs available Confirmed by MD Hope Christopher ([id number]) on 02/02/2025 1:01:07 AM GEMUSE 01/31/2025 11:0 7 AM EDT 02/02/2025 1:01 AM EDT us Xavier Hooper MD ECG ORDERABLES Final Result GEMUSE documented in this encounter Visit Diagnoses Diagnosis Syncope and collapse- Primary Syncope and collapse Acute hypoxic respiratory failure (CMS/HCC V24, CMS/HCC V28) Urinary tract infection without hematuria, site unspecified documented in this encounter Admitting Diagnoses Diagnosis Syncope and collapse documented in this encounter Administered Medications Inactive Administered Medications - up to 3 most recent administrations Medication Order MAR Action Action Date Dose Rate Site acetaminophen (TYLENOL) tablet 1,000 mg 1,000 mg, oral, Every 8 hours scheduled, First dose on Wed01/31/25 at 2200, Scheduled medication for mild pain Given 02/07/2025 2:14 PM EDT 1,000 mg Given 02/07/2025 6:27 AM EDT 1,000 mg Given 02/06/2025 9:23 PM EDT 1,000 mg acetaminophen (TYLENOL) tablet 650 mg 650 mg, oral, Once, On Wed01/31/25 at 1801, For 1 dose Given 01/31/2025 6:06 PM EDT 650 mg albumin human 25 % infusion 25 g 25 g, intravenous, Once, On Wed01/31/25 at 1938, For 1 dose, FOR HYPOVOLEMIC SHOCK: Infuse 5% Albumin as rapidly as tolerated (500 mL over 1 - 2 hr) or (250 mL over 30 - 60 min), as blood volume approaches normal then infusion rate should not exceed 1 mL/min. Infusing too rapidly may cause vascular overload which may lead to pulmonary edema or cardiac failure. ROUTINE REPLACEMENT: (non-critical) Infuse 5% or 25% Albumin @ 100 mL/hr for routine albumin replacement in non-critical situations. Faster infusion rates are appropriate for hypovolemic shock (see above). ADMINISTRATION NOTE: A 15-micron filter is only required for Buminate; however, filters are NOT required for all other brands (Albuked, Albuminar, Albuminex, AlbuRx, Albutein, Flexbumin, Kedbumin, Plasbumin). Do not exceed 1 mL/minute in patients with normal plasma volume; 3 mL/minute in patients with hypoproteinemia., Indications: hypovolemic shockIndications:hypovolemic shock New Bag 01/31/2025 7:41 PM EDT 25 g albumin human 25 % infusion 25 g 25 g, intravenous, Once, On Wed02/02/25 at 1115, For 1 dose, FOR HYPOVOLEMIC SHOCK: Infuse 5% Albumin as rapidly as tolerated (500 mL over 1 - 2 hr) or (250 mL over 30 - 60 min), as blood volume approaches normal then infusion rate should not exceed 1 mL/min. Infusing too rapidly may cause vascular overload which may lead to pulmonary edema or cardiac failure. ROUTINE REPLACEMENT: (non-critical) Infuse 5% or 25% Albumin @ 100 mL/hr for routine albumin replacement in non-critical situations. Faster infusion rates are appropriate for hypovolemic shock (see above). ADMINISTRATION NOTE: A 15-micron filter is only required for Buminate; however, filters are NOT required for all other brands (Albuked, Albuminar, Albuminex, AlbuRx, Albutein, Flexbumin, Kedbumin, Plasbumin). Do not exceed 1 mL/minute in patients with normal plasma volume; 3 mL/minute in patients with hypoproteinemia., Indications: hypovolemic shockIndications:hypovolemic shock New Bag 02/02/2025 11:00 AM EDT 25 g aspirin EC tablet 81 mg 81 mg, oral, Daily, First dose on Anne 02/01/25 at 1445, Do not crush, chew, or split. Given 02/07/2025 8:08 AM EDT 81 mg Given 02/06/2025 10:04 AM EDT 81 mg Given 02/05/2025 8:58 AM EDT 81 mg atorvastatin (LIPITOR) tablet 40 mg 40 mg, oral, Daily, First dose on Wed02/01/25 at 0900 Given 02/07/2025 8:09 AM EDT 40 mg Given 02/06/2025 10:04 AM EDT 40 mg Given 02/05/2025 8:58 AM EDT 40 mg azithromycin (ZITHROMAX) 500 mg in sodium chloride 0.9 % 250 mL IVPB 500 mg, intravenous, at 250 mL/hr, Administer over 60 Minutes, Once, On Wed01/31/25 at 1834, For 1 dose, Indication: Pneumonia, Community Acquired New Bag 01/31/2025 6:39 PM EDT 500 mg 250 mL/hr benzonatate (TESSALON) capsule 100 mg 100 mg, oral, 3 times daily PRN, cough, Starting on Wed02/01/25 at 0408, Do not crush or chew. Given 02/07/2025 12:15 PM EDT 100 mg Given 02/06/2025 4:56 PM EDT 100 mg Given 02/04/2025 10:07 AM EDT 100 mg bisacodyL (DULCOLAX) EC tablet 10 mg 10 mg, oral, Daily PRN, constipation, Starting on Wed01/31/25 at 1848, 1st line for treatment of constipation - give scheduled if no bowel movement in past 24 hours. Do not crush, chew, or split. cefTRIAXone (ROCEPHIN) 1 g in sterile water 10 mL IV syringe 1 g, intravenous, at 200 mL/hr, Administer over 3 Minutes, Once, On Wed01/31/25 at 1726, For 1 dose, Do not administer simultaneously with any calcium containing solutions via a Y-site in any patient., Indication: Urinary Tract/Genitourinary Given 01/31/2025 5:55 PM EDT 1 g 200 mL/hr cefTRIAXone (ROCEPHIN) 1 g in sterile water 10 mL IV syringe 1 g, intravenous, at 200 mL/hr, Administer over 3 Minutes, Every 24 hours, First dose on Wed02/05/25 at 0900, For 5 days, Do not administer simultaneously with any calcium containing solutions via a Y-site in any patient., Indication: Urinary Tract/Genitourinary Given 02/07/2025 8:09 AM EDT 1 g 200 mL/hr Given 02/06/2025 10:04 AM EDT 1 g 200 mL/hr Given 02/05/2025 8:58 AM EDT 1 g 200 mL/hr dextromethorphan-guaiFENesin (ROBITUSSIN-DM) 10-100 mg/5 mL syrup 10 mL 10 mL, oral, Every 4 hours PRN, cough, Starting on Wed02/01/25 at 0124 Given 02/05/2025 6:58 AM EDT 10 mL Given 02/04/2025 9:46 PM EDT 10 mL Given 02/04/2025 10:07 AM EDT 10 mL dextrose (D50W) 50% injection 12.5 g 12.5 g, intravenous, Every 15 min PRN, low blood sugar, moderate hypoglycemia *Patient is Unconscious, NPO, unable to swallow: BG 54 - 69 mg/dl*, Starting on Wed01/31/25 at 1922 dextrose (D50W) 50% injection 25 g 25 g, intravenous, Every 15 min PRN, low blood sugar, severe hypoglycemia *Patient is Unconscious, NPO, unable to swallow: BG LESS than 54 mg/dL*, Starting on Wed01/31/25 at 1922 dextrose 15 gram/60 mL oral solution 15 g 15 g, oral, Every 15 min PRN, low blood sugar, hypoglycemia *Patient conscious AND able to drink and swallow safely*, Starting on Wed01/31/25 at 1922 dextrose 15 gram/60 mL oral solution 30 g 30 g, oral, Every 15 min PRN, low blood sugar, hypoglycemia *Patient conscious AND able to drink and swallow safely*, Starting on Wed01/31/25 at 1922 furosemide (LASIX) injection 20 mg 20 mg, intravenous, Once, On Wed02/02/25 at 2245, For 1 dose Given 02/02/2025 10:26 PM EDT 20 mg furosemide (LASIX) injection 40 mg 40 mg, intravenous, Once, On Wed02/01/25 at 1445, For 1 dose Given 02/01/2025 2:56 PM EDT 40 mg furosemide (LASIX) injection 40 mg 40 mg, intravenous, BID Diuretic, First dose on Wed02/01/25 at 1700, Hold for SBP<110 Given 02/04/2025 4:49 PM EDT 40 mg Given 02/04/2025 8:39 AM EDT 40 mg Given 02/03/2025 4:52 PM EDT 40 mg furosemide (LASIX) tablet 40 mg 40 mg, oral, BID Diuretic, First dose on Wed02/05/25 at 0900, On hold since Wed02/06/2025 at 0902 until manually unheld Given 02/05/2025 4:33 PM EDT 40 mg Given 02/05/2025 8:58 AM EDT 40 mg gabapentin (NEURONTIN) capsule 100 mg 100 mg, oral, 3 times daily, First dose on Wed02/01/25 at 1445 Given 02/07/2025 2:14 PM EDT 100 mg Given 02/07/2025 8:08 AM EDT 100 mg Given 02/06/2025 9:22 PM EDT 100 mg Glucagon HCl (rDNA) injection 1 mg 1 mg, intramuscular, Once as needed, low blood sugar, severe hypoglycemia, Starting on Wed01/31/25 at 1922, For 1 dose heparin (UFH) injection 5,000 Units 5,000 Units, subcutaneous, Every 12 hours scheduled, First dose on Wed02/05/25 at 2100, Enter Indication for use of heparin (UFH) instead of enoxaparin (LOVENOX): (free text): increased cr, Indication: VTE Prophylaxis, Indications: Prophylaxis of Venous ThromboembolismIndications:Pr ophylaxis of Venous Thromboembolism Given 02/07/2025 8:09 AM EDT 5,000 Units Left Upper Abdomen Given 02/06/2025 9:24 PM EDT 5,000 Units R ight Lower Abdomen Given 02/06/2025 10:04 AM EDT 5,000 Units Right Lower Abdomen hydrALAZINE (APRESOLINE) tablet 10 mg 10 mg, oral, 2 times daily, First dose on Wed02/06/25 at 0930 Given 02/07/2025 8:08 AM EDT 10 mg Given 02/06/2025 9:23 PM EDT 10 mg Given 02/06/2025 10:04 AM EDT 10 mg insulin glargine (LANTUS) injection 10 Units 10 Units, subcutaneous, Nightly, First dose on Wed02/01/25 at 2100, Notify provider: -If patient is currently or will become NPO -If TPN was or will be interrupted or discontinued -For approval to hold long acting insulin Given 02/06/2025 9:22 PM EDT 10 Units Left Lower Abdomen Given 02/05/2025 10:20 PM EDT 10 Units L eft Upper Abdomen Given 02/04/2025 9:52 PM EDT 10 Units Le ft Upper Arm (Back) insulin lispro injection 2-12 Units 2-12 Units, subcutaneous, 4 times daily before meals and nightly, First dose on Wed01/31/25 at 2100, Indication: Total Daily Dose (TDD) 40 - 80 units. Correction Scale: Moderate Dose Administer with meal and/or mealtime dose of insulin to correct high blood glucose If mealtime insulin dose not given (e.g. patient NPO or not eating), still administer correction factor for high blood glucose Given 02/07/2025 11:50 AM EDT 4 Units Left Upper Arm (Back ) Given 02/07/2025 8:09 AM EDT 2 Units Ri ght Upper Arm (Back) Given 02/06/2025 9:22 PM EDT 4 Units Le ft Lower Abdomen iopamidoL (ISOVUE-370) 370 mg iodine /mL (76 %) injection 100 mL 100 mL, intravenous, Once in imaging, Starting on Wed01/31/25 at 1632, For 1 dose Given 01/31/2025 5:15 PM EDT 90 mL ipratropium-albuteroL (DUONEB) 0.5-2.5 mg/3 mL nebulizer solution 3 mL 3 mL, nebulization, Every 6 hours PRN, wheezing, shortness of breath, Starting on Wed02/01/25 at 0407 Given 02/01/2025 2:28 PM EDT 3 mL Given 02/01/2025 4:25 AM EDT 3 mL ipratropium-albuteroL (DUONEB) 0.5-2.5 mg/3 mL nebulizer solution 3 mL 3 mL, nebulization, 4 times daily, First dose on Wed02/01/25 at 1600 Given 02/07/2025 11:27 AM EDT 3 mL Given 02/07/2025 7:37 AM EDT 3 mL Given 02/06/2025 8:13 PM EDT 3 mL isosorbide mononitrate (IMDUR) 24 hr tablet 30 mg 30 mg, oral, Daily, First dose on Wed02/02/25 at 0900, Hold for SBP<100 Do not crush or chew. Given 02/07/2025 8:09 AM EDT 30 mg Given 02/06/2025 10:04 AM EDT 30 mg Given 02/05/2025 8:58 AM EDT 30 mg lactated Ringer's infusion 75 mL/hr, intravenous, Continuous, Starting on Wed01/31/25 at 1850, For 13 hours New Bag 02/01/2025 1:57 AM EDT 75 mL/hr 75 mL/hr Rate/Dose Verify 02/01/2025 12:25 AM EDT 75 mL/hr 75 mL/ hr Rate/Dose Verify 01/31/2025 9:38 PM EDT 75 mL/hr 75 mL/h r magnesium sulfate 2 gram/50 mL (4 %) IVPB 2 g 2 g, intravenous, at 25 mL/hr, Administer over 2 Hours, Once, On Wed01/31/25 at 1309, For 1 dose New Bag 01/31/2025 1:32 PM EDT 2 g 25 m L/hr metoprolol tartrate (LOPRESSOR) 5 mg/5 mL injection - ADS Override Pull Starting on Wed02/01/25 at 1608, For 1 dose, Created by cabinet override metoprolol tartrate (LOPRESSOR) injection 5 mg 5 mg, intravenous, Once, On Wed02/01/25 at 1445, For 1 dose Given 02/01/2025 2:21 PM EDT 5 mg metoprolol tartrate (LOPRESSOR) injection 5 mg 5 mg, intravenous, Once, On Wed02/01/25 at 1630, For 1 dose, For IV Push - Administer undiluted over 2 minutes Given 02/01/2025 4:10 PM EDT 5 mg metoprolol tartrate (LOPRESSOR) tablet 25 mg 25 mg, oral, Every 6 hours, First dose (after last modification) on Wed02/01/25 at 2100, Hold for SBP<100 Given 02/07/2025 2:14 PM EDT 25 mg Given 02/07/2025 8:09 AM EDT 25 mg Given 02/07/2025 3:55 AM EDT 25 mg morphine 2 mg/mL injection 2 mg 2 mg, intravenous, Once, On Wed02/01/25 at 1630, For 1 dose Given 02/01/2025 4:06 PM EDT 2 mg nitroglycerin (NITRO-BID) 2 % ointment - ADS Override Pull Starting on Wed02/01/25 at 1614, For 1 dose, Created by cabinet override nitroglycerin (NITRO-BID) 2 % ointment 0.5 inch 0.5 inch, Topical, Once, On Wed02/01/25 at 1645, For 1 dose, Remove for sys less than 90 Given 02/01/2025 4:17 PM EDT 0.5 inches perflutren lipid microsphere (DEFINITY) 1.3 mL in sodium chloride 0.9% 8.7 mL injection 10 mL, intravenous, Administer over 10 Minutes, Once in imaging, Starting on Wed02/02/25 at 1005, For 1 dose, CV Medication Orders Given 02/02/2025 10:05 AM EDT 2 mL piperacillin-tazobactam (ZOSYN) 3.375 g in sodium chloride 0.9 % 100 mL IVPB 3.375 g, intravenous, at 200 mL/hr, Administer over 30 Minutes, Every 8 hours, First dose on Wed02/01/25 at 1430, For 7 days, Do not administer through same line as lactated ringer? s fluids (LR), Indication: Urinary Tract/Genitourinary New Bag 02/05/2025 6:20 AM EDT 3.375 g 200 mL/hr New Bag 02/04/2025 11:17 PM EDT 3.375 g 200 mL/hr New Bag 02/04/2025 3:38 PM EDT 3.375 g 200 mL/hr potassium chloride (KLOR-CON M20) CR tablet 40 mEq 40 mEq, oral, Once, On Wed02/04/25 at 0830, For 1 dose, Tablet may be swallowed whole (do not crush/chew/suck on) OR broken in half and each half swallowed separately OR dissolved (whole tablet) in ~4 ounces of water (allow ~2 minutes to dissolve, stir well and administer immediately). Given 02/04/2025 10:07 AM EDT 40 mEq sodium chloride 0.9 % bolus 1,000 mL 1,000 mL, intravenous, at 2,000 mL/hr, Administer over 30 Minutes, Once, On Wed01/31/25 at 1259, For 1 dose New Bag 01/31/2025 1:15 PM EDT 1,000 mL 2000 mL/hr sodium chloride 0.9 % flush 10 mL 10 mL, intravenous, Once, On Wed01/31/25 at 1634, For 1 dose Given 01/31/2025 5:16 PM EDT 10 mL sodium chloride 0.9 % infusion 100 mL/hr, intravenous, Continuous, Starting on Anne 02/01/25 at 0945 New Bag 02/01/2025 9:47 AM EDT 100 mL/hr 100 mL/hr sodium chloride 0.9 % infusion 42 mL/hr, intravenous, As needed, pre-, and post- transfusion as needed for line flush purposes, in conjunction with blood product transfusion only, Starting on 02/03/25 at 0913, -Use only the amount required from a 250 mL bag of NS to adequately flush -A new NS bag is required with each new unit of blood administered sodium chloride 0.9 % infusion 42 mL/hr, intravenous, As needed, pre-, and post- transfusion as needed for line flush purposes, in conjunction with blood product transfusion only, Starting on 02/03/25 at 1652, -Use only the amount required from a 250 mL bag of NS to adequately flush -A new NS bag is required with each new unit of blood administered spironolactone (ALDACTONE) tablet 12.5 mg 12.5 mg, oral, Daily, First dose on Wed02/01/25 at 1445, HAZARDOUS Drug Precautions - Low Risk (Category A/NIOSH Group 3) Reproductive Risk Only: - Single pair of ASTM standard D6978 certified chemotherapy gloves - Eye protection (goggles or face shield) required only with a potential for facial contact (i.e. concern for spitting or vomiting of the dose during or after administration) - Staff at reproductive risk (actively trying to conceive, or may be become , and ): chemo certified gown and an N95 respirator required when crushing meds (crushing of tabs allowed only in closed pouches) or opening of capsules only for allowable dosage forms Given 02/07/2025 8:09 AM EDT 12.5 mg Given 02/06/2025 10:04 AM EDT 12.5 mg Given 02/05/2025 8:58 AM EDT 12.5 mg vancomycin (VANCOCIN) IVPB 1,500 mg in 0.9 % sodium chloride 500 mL - CNR 1,500 mg, intravenous, at 333.3 mL/hr, Administer over 90 Minutes, Once, On Wed02/02/25 at 1115, For 1 dose, Indication: Pneumonia, Nosocomial New Bag 02/02/2025 12:03 PM EDT 1,500 mg 333.3 mL/hr documented in this encounter Discontinued Medications Medication Sig Discontinue Reason Start Date End Da te metoprolol tartrate (LOPRESSOR) 100 mg tablet Take 1 tablet (100 mg total) by mouth 2 (two) times a day. 01/31/2025 nitroglycerin (NITROSTAT) 0.[address] 1 tablet (0.4 mg total) under the tongue every 5 (five) minutes as needed for chest pain. 01/31/2025 furosemide (LASIX) 20 mg tablet Take 1 tablet (20 mg total) by mouth 2 (two) times a day. Every other day Stop Taking at Discharge 02/07/2025 sacubitriL-valsartan (ENTRESTO) 24-26 mg per tablet Take 1 tablet by mouth 2 (two) times a day. Stop Taking at Discharge 02/07/2025 spironolactone (ALDACTONE) 25 mg tablet Take 0.5 tablets (12.5 mg total) by mouth 1 (one) time each day. Stop Taking at Discharge 01/22/2025 02/07/2025 metoprolol tartrate (LOPRESSOR) 25 mg tablet Take 0.5 tablets (12.5 mg total) by mouth 2 (two) times a day. Stop Taking at Discharge 02/07/2025 documented as of this encounter Historical Medications * This list may reflect changes made after this encounter. insulin glargine (LANTUS SoloStar) 100 unit/mL (3 mL) injection pen Inject 12 Units under the skin at bedtime. 12/07/2024 metoprolol tartrate (LOPRESSOR) 25 mg tablet Take 0.5 tablets (12.5 mg total) by mouth 2 (two) times a day. 02/07/2025 spironolactone (ALDACTONE) 25 mg tablet Take 0.5 tablets (12.5 mg total) by mouth 1 (one) time each day. 01/22/2025 02/07/2025 added in this encounter Active and Recently Administered Medications Times are shown in EDT. Scheduled Medication Order 02/05/2025 02/06/2025 02/07/2025 acetaminophen (TYLENOL) tablet 1,000 mg 1,000 mg, oral, Every 8 hours scheduled, First dose on Wed01/31/25 at 2200, Scheduled medication for mild pain 0621 (Given - Provider: Radha Adams, MAURO)1459 (Given - Provider: Asmita Juárez RN)2218 (Given - Provider: Carrie Sanford RN) 0626 (Given - Provider: Carrie Sanford RN)1506 (Given - Provider: Yeni Ojeda, MAURO)2123 (Given - Provider: Carrie Sanford RN) 0627 (Given - Provider: Carrie Sanford RN)1414 (Given - Provider: Rupa Edmonds, MAURO) aspirin EC tablet 81 mg 81 mg, oral, Daily, First dose on Anne 02/01/25 at 1445, Do not crush, chew, or split. 0858 (Given - Provider: Asmita Juárez RN) 1004 (Given - Provider: Yeni Ojeda, MAURO) 0808 (Given - Provider: Rupa Edmonds, MAURO) atorvastatin (LIPITOR) tablet 40 mg 40 mg, oral, Daily, First dose on Wed02/01/25 at 0900 0858 (Given - Provider: Asmita Juárez RN) 1004 (Given - Provider: Yeni Ojeda RN) 0809 (Given - Provider: Rupa Edmonds, MAURO) cefTRIAXone (ROCEPHIN) 1 g in sterile water 10 mL IV syringe 1 g, intravenous, at 200 mL/hr, Administer over 3 Minutes, Every 24 hours, First dose on Wed02/05/25 at 0900, For 5 days, Do not administer simultaneously with any calcium containing solutions via a Y-site in any patient., Indication: Urinary Tract/Genitourinary 0858 (Given - Provider: Asmita Juárez RN) 1004 (Given - Provider: Yeni Ojeda RN) 0809 (Given - Provider: Rupa Edmonds RN) furosemide (LASIX) tablet 40 mg 40 mg, oral, BID Diuretic, First dose on Wed02/05/25 at 0900, On hold since Wed02/06/2025 at 0902 until manually unheld 0858 (Given - Provider: Asmita Juárez RN)1633 (Given - Provider: Asmita Juárez RN) 0902 (Held by provider - Provider: Antonia Chapin MD - Reason: Change in vital signs)0929 (Not Given - Provider: Yeni Ojeda RN - Reason: See Provider Order)1700 (Not Given - Provider: Yeni Ojeda RN - Reason: See Provider Order) 0900 (Hold - Provider: Rupa Edmonds RN - Reason: See Provider Order)1706 (Unheld by provider - Provider: Automatic Discharge Provider) gabapentin (NEURONTIN) capsule 100 mg 100 mg, oral, 3 times daily, First dose on Wed02/01/25 at 1445 0858 (Given - Provider: Asmita Juárez RN)1459 (Given - Provider: Asmita Juárez RN)2218 (Given - Provider: Carrie Sanford RN) 1004 (Given - Provider: Yeni Ojeda RN)1506 (Given - Provider: Yeni Ojeda RN)2122 (Given - Provider: Carrie Sanford RN) 0808 (Given - Provider: Rupa Edmonds RN)1414 (Given - Provider: Rupa Edmonds RN) heparin (UFH) injection 5,000 Units 5,000 Units, subcutaneous, Every 12 hours scheduled, First dose on Wed02/05/25 at 2100, Enter Indication for use of heparin (UFH) instead of enoxaparin (LOVENOX): (free text): increased cr, Indication: VTE Prophylaxis, Indications: Prophylaxis of Venous Thromboembolism 2219 (Given - Provider: Carrie Sanford RN) 1004 (Given - Provider: Yeni Ojeda RN)2124 (Given - Provider: Carrie Sanford RN) 0809 (Given - Provider: Rupa Edmonds, RN) hydrALAZINE (APRESOLINE) tablet 10 mg 10 mg, oral, 2 times daily, First dose on Wed02/06/25 at 0930 1004 (Given - Provider: Yeni Ojeda RN)2123 (Given - Provider: Carrie Sanford RN) 0808 (Given - Provider: Rupa Edmonds, RN) insulin glargine (LANTUS) injection 10 Units 10 Units, subcutaneous, Nightly, First dose on Wed02/01/25 at 2100, Notify provider: -If patient is currently or will become NPO -If TPN was or will be interrupted or discontinued -For approval to hold long acting insulin 2219 (Given - Provider: Carrie Sanford RN) 2121 (Given - Provider: Carrie Sanford RN) insulin lispro injection 2-12 Units 2-12 Units, subcutaneous, 4 times daily before meals and nightly, First dose on Wed01/31/25 at 2100, Indication: Total Daily Dose (TDD) 40 - 80 units. Correction Scale: Moderate Dose Administer with meal and/or mealtime dose of insulin to correct high blood glucose If mealtime insulin dose not given (e.g. patient NPO or not eating), still administer correction factor for high blood glucose 0833 (Not Given - Provider: Asmita Juárez RN - Reason: Order parameters not met)1156 (Not Given - Provider: Asmita Juárez RN - Reason: Order parameters not met)1633 (Given - Provider: Asmita Juárez RN)2219 (Given - Provider: Carrie Sanford RN) 0821 (Not Given - Provider: Yeni Ojeda RN - Reason: Order parameters not met)1207 (Given - Provider: Yeni Ojeda RN)1656 (Given - Provider: Yeni Ojeda, MAURO)2122 (Given - Provider: Carrie Sanford RN) 0809 (Given - Provider: Rupa Edmonds, MAURO)1150 (Given - Provider: Rupa Edmonds, MAURO)1630 (Canceled Entry - Provider: Automatic Discharge Provider - Comment: Automatically canceled at discontinue of medication order) ipratropium-albuteroL (DUONEB) 0.5-2.5 mg/3 mL nebulizer solution 3 mL 3 mL, nebulization, 4 times daily, First dose on Wed02/01/25 at 1600 0802 (Given - Provider: Mercedes Beck, CHIEF LIBRARIAN CIRCULATION DEPARTMENT)1131 (Given - Provider: Mercedes Beck, CHIEF LIBRARIAN CIRCULATION DEPARTMENT)1556 (Given - Provider: Hina Corcoran, CHIEF LIBRARIAN CIRCULATION DEPARTMENT)1943 (Given - Provider: Elvin Cazares, CHIEF LIBRARIAN CIRCULATION DEPARTMENT) 0754 (Given - Provider: Serena Kelly CHIEF LIBRARIAN CIRCULATION DEPARTMENT)1140 (Given - Provider: Serena Kelly CHIEF LIBRARIAN CIRCULATION DEPARTMENT)1608 (Given - Provider: Serena Kelly CHIEF LIBRARIAN CIRCULATION DEPARTMENT)2013 (Given - Provider: Hina Corcoran CHIEF LIBRARIAN CIRCULATION DEPARTMENT) 0737 (Given - Provider: Delaney Doyle, CHIEF LIBRARIAN CIRCULATION DEPARTMENT)1127 (Given - Provider: Zita Rivers, DICTATING MACHINE TYPIST)1600 (Canceled Entry - Provider: Automatic Discharge Provider - Comment: Automatically canceled at discontinue of medication order) isosorbide mononitrate (IMDUR) 24 hr tablet 30 mg 30 mg, oral, Daily, First dose on Wed02/02/25 at 0900, Hold for SBP<100 Do not crush or chew. 0858 (Given - Provider: Asmita Juárez RN) 1004 (Given - Provider: Yeni Ojeda RN) 0809 (Given - Provider: Rupa Edmonds RN) metoprolol tartrate (LOPRESSOR) tablet 25 mg 25 mg, oral, Every 6 hours, First dose (after last modification) on Wed02/01/25 at 2100, Hold for SBP<100 0424 (Given - Provider: Radha Adams RN - Comment: multimeds)1459 (Given - Provider: Asmita Juárez RN)1805 (Not Given - Provider: Yeni Ojeda RN - Reason: Other - Comment: PATIENT JUST CAME UP TO MED SURG [facility])2218 (Given - Provider: Carrie Sanford RN) 0413 (Given - Provider: Carrie Sanford RN)1004 (Given - Provider: Yeni Ojeda RN)1506 (Given - Provider: Yeni Ojeda RN)2123 (Given - Provider: Carrie Sanford RN) 0355 (Given - Provider: Carrie Sanford RN)0809 (Given - Provider: Rupa Edmonds, RN)1414 (Given - Provider: Rupa Edmonds, MAURO) morphine 2 mg/mL injection 2 mg 2 mg, intravenous, Once, On Anne 02/01/25 at 1630, For 1 dose piperacillin-tazobactam (ZOSYN) 3.375 g in sodium chloride 0.9 % 100 mL IVPB (CANCELED) 3.375 g, intravenous, at 200 mL/hr, Administer over 30 Minutes, Every 8 hours, First dose on Anne 02/01/25 at 1430, For 7 days, Do not administer through same line as lactated ringer? s fluids (LR), Indication: Urinary Tract/Genitourinary 0620 (New Bag - Provider: Radha Adams, MAURO)0650 (Stopped - Provider: Radha Adams, MAURO) sacubitriL-valsartan (ENTRESTO) 24-26 mg per tablet 1 tablet 1 tablet, oral, 2 times daily, First dose on Anne 02/01/25 at 1445, Contraindicated in combination with JUANCHO inhibitors. Ensure a minimum of 36 hours between any JUANCHO inhibitor dose and sacubitril-valsartan., On hold since Wed02/01/2025 at 1416 until manually unheld 0900 (Not Given - Provider: Yeni Ojeda RN - Reason: See Provider Order)2100 (Dose Auto Held) 0900 (Not Given - Provider: Yeni Ojeda RN - Reason: See Provider Order)2100 (Dose Auto Held) 0900 (Hold - Provider: Rupa Edmonds RN - Reason: See Provider Order)1706 (Unheld by provider - Provider: Automatic Discharge Provider) spironolactone (ALDACTONE) tablet 12.5 mg 12.5 mg, oral, Daily, First dose on Anne 02/01/25 at 1445, HAZARDOUS Drug Precautions - Low Risk (Category A/NIOSH Group 3) Reproductive Risk Only: - Single pair of ASTM standard D6978 certified chemotherapy gloves - Eye protection (goggles or face shield) required only with a potential for facial contact (i.e. concern for spitting or vomiting of the dose during or after administration) - Staff at reproductive risk (actively trying to conceive, or may be become , and ): chemo certified gown and an N95 respirator required when crushing meds (crushing of tabs allowed only in closed pouches) or opening of capsules only for allowable dosage forms 0830 (Unheld by provider - Provider: Antonia Chapin MD)0858 (Given - Provider: Asmita Juárez RN) 1004 (Given - Provider: Yeni Ojeda RN) 0809 (Given - Provider: Rupa Edmonds, MAURO) PRN Medication Order 02/05/2025 02/06/2025 02/07/2025 benzonatate (TESSALON) capsule 100 mg 100 mg, oral, 3 times daily PRN, cough, Starting on Wed02/01/25 at 0408, Do not crush or chew. 1656 (Given - Provider: Yeni Ojeda RN) 1215 (Given - Provider: Rupa Edmonds RN) bisacodyL (DULCOLAX) EC tablet 10 mg 10 mg, oral, Daily PRN, constipation, Starting on Wed01/31/25 at 1848, 1st line for treatment of constipation - give scheduled if no bowel movement in past 24 hours. Do not crush, chew, or split. dextromethorphan-guaiFE Nesin (ROBITUSSIN-DM) 10-100 mg/5 mL syrup 10 mL 10 mL, oral, Every 4 hours PRN, cough, Starting on Wed02/01/25 at 0124 0658 (Given - Provider: Radha Adams RN - Comment: barcode ripped) dextrose (D50W) 50% injection 12.5 g 12.5 g, intravenous, Every 15 min PRN, low blood sugar, moderate hypoglycemia *Patient is Unconscious, NPO, unable to swallow: BG 54 - 69 mg/dl*, Starting on Wed01/31/25 at 1922 dextrose (D50W) 50% injection 25 g 25 g, intravenous, Every 15 min PRN, low blood sugar, severe hypoglycemia *Patient is Unconscious, NPO, unable to swallow: BG LESS than 54 mg/dL*, Starting on Wed01/31/25 at 1922 dextrose 15 gram/60 mL oral solution 15 g 15 g, oral, Every 15 min PRN, low blood sugar, hypoglycemia *Patient conscious AND able to drink and swallow safely*, Starting on Wed01/31/25 at 192 dextrose 15 gram/60 mL oral solution 30 g 30 g, oral, Every 15 min PRN, low blood sugar, hypoglycemia *Patient conscious AND able to drink and swallow safely*, Starting on Wed01/31/25 at 192 Glucagon HCl (rDNA) injection 1 mg 1 mg, intramuscular, Once as needed, low blood sugar, severe hypoglycemia, Starting on Wed01/31/25 at 1922, For 1 dose ipratropium-albuteroL (DUONEB) 0.5-2.5 mg/3 mL nebulizer solution 3 mL 3 mL, nebulization, Every 6 hours PRN, wheezing, shortness of breath, Starting on Anne 02/01/25 at 0407 sodium chloride 0.9 % infusion 42 mL/hr, intravenous, As needed, pre-, and post- transfusion as needed for line flush purposes, in conjunction with blood product transfusion only, Starting on 02/03/25 at 0913, -Use only the amount required from a 250 mL bag of NS to adequately flush -A new NS bag is required with each new unit of blood administered sodium chloride 0.9 % infusion 42 mL/hr, intravenous, As needed, pre-, and post- transfusion as needed for line flush purposes, in conjunction with blood product transfusion only, Starting on 02/03/25 at 1652, -Use only the amount required from a 250 mL bag of NS to adequately flush -A new NS bag is required with each new unit of blood administered documented in this encounter Orders Medications Ordered That Han ht Not Have Been Administered Count Last Ordered Date First Ordered Date sodium chloride 0.9 % infusion 2 02/03/2025 vancomycin (VANCOCIN) 1,000 mg in sodium chloride 0.9 % 250 mL IVPB 1 02/02/2025 furosemide (LASIX) tablet 20 mg 1 isosorbide mononitrate (IMDU R) 24 hr tablet 30 mg 1 02/01/2025 metoprolol tartrate (LOPRESS OR) tablet 12.5 mg 1 02/01/2025 morphine 2 mg/mL injection - ADS Override Pull 1 02/01/2025 morphine 2 mg/mL injection 2 mg 1 nitroglycerin (NITRO-BID) 2 % ointment 1 inch 1 02/01/2025 sacubitriL-valsartan (ENTRES TO) 24-26 mg per tablet 1 tablet 1 02/01/2025 azithromycin (ZITHROMAX) tablet 500 mg 1 bisacodyL (DULCOLAX) EC tablet 10 mg 1 06/2025 cefTRIAXone (ROCEPHIN) 1 g i n sterile water 10 mL IV syringe 1 01/31/2025 dextrose (D50W) 50% injection 12.5 g 06/2025 dextrose (D50W) 50% injection 25 g 1 2024 dextrose 15 gram/60 mL oral solution 15 g 1 01/31/2025 dextrose 15 gram/60 mL oral solution 30 g 1 01/31/2025 Glucagon HCl (rDNA) injection 1 mg 1 2024 ondansetron (PF) (ZOFRAN) injection 4 mg 1 01/31/2025 ondansetron ODT (ZOFRAN-ODT) disintegrating tablet 4 mg 1 01/31/2025 Nursing Count Last Ordered Date First Orde red Date INSERT INDWELLING CATHETER 1 01/31/2025 VITAL SIGNS 1 01/31/2025 Consult Count Last Ordered Date First Orde red Date IP CONSULT TO CARDIOLOGY 1 02/01/2025 IP CONSULT TO INFECTIOUS DISEASES 1 025 Respiratory Care Count Last Ordered Date First Ordered Date OXYGEN THERAPY, ADULT 15 02/06/20252024 RETORT CONDENSER ATTENDANT Count Last Ordered Date First Orde red Date RETORT CONDENSER ATTENDANT SWALLOW EVAL AND TREAT 1 02/02/2025 Admission Count Last Ordered Date First Orde red Date ADMIT TO INPATIENT 1 01/31/2025 Transfer Count Last Ordered Date First Orde red Date TRANSFER PATIENT TO NEW UNIT 1 02/05/2025 ED TO FLOOR BED REQUEST 2 01/31/2025 Discharge Count Last Ordered Date First Orde red Date DISCHARGE PATIENT 1 02/07/2025 documented in this encounter Additional Health Concerns Infection Onset Date Last Indicated Resolved Time Respiratory Rule-Out 01/31/2025 01/31/2025 025 7:39 PM EDT COVID-19 Rule-Out 01/31/2025 01/31/2025 01/31/2025 7:39 PM EDT documented as of this encounter Care Teams Store Stock Help Relationship Specialty Start Date End Date Physician, Pcp Unknown PCP - General 01/31/25 documented as of this encounter
--- OUTSIDE RECORDS SUMMARY | 2025-02-12 06:15 | XMS_ITS | Clinical Summary ---
Author Organization [facility] Address [address] [place] [address] Care Team Providers Care Tariff Compiler Name Role Phone Hayden Canchola MD Primary Care Provider [phone] Allergies No known active allergies Medications Medication [...] age to complete this topic Care Teams Tariff Compiler Relationship Specialty Start Date End Date Hayden Canchola MD [address] [place] [address] [address] [place] [id number] PCP - General Search Lead 06/02/19
[2025-02-12 06:24] LABS: Basophils Absolute Auto 0.1 X10*3/uL (0.0-0.2); Eosinophils Absolute Auto 0.5 X10*3/uL (0.0-0.4); Eosinophils Percent Auto 5.9 % (0-4); Hematocrit 33.4 % (37.0-47.0); Hemoglobin 10.3 g/dl (12.0-16.0); Imm Gran Abs Auto 0.07 X10*3/uL (0.00-0.03); Imm Gran Pct Auto 0.9 % (0.0-0.4); Lymphocytes Absolute Auto 1.5 X10*3/uL (1.2-4.9); Lymphocytes Percent Auto 19.2 % (20-40); Mean Corpuscular HGB Conc 30.8 g/dl (31.0-35.0); Mean Corpuscular Hemoglobin 30.7 pg (27.0-33.0); Mean Corpuscular Volume 99.4 fL (80.0-98.0); Mean Platelet Volume 8.9 fL (9.4-12.3); Monocytes Absolute Auto 0.9 X10*3/uL (0.1-1.2); Monocytes Percent Auto 11.7 % (2-11); Neutrophils Absolute Auto 4.7 x10*3/uL (2.0-8.3); Neutrophils Percent Auto 61.3 % (45-73); Platelet Count 394 X10*3/uL (160-400); Red Blood Count 3.36 X10*6/uL (4.20-5.50); Red Cell Distribution Width 18.3 % (11.0-16.0); White Blood Count 7.7 X10*3/uL (4.8-10.8)
[2025-02-12 06:33] LABS: Anion Gap 15 (12-20); Blood Urea Nitrogen 24 mg/dL (9-16); Calcium 8.6 mg/dL (8.4-10.2); Carbon Dioxide 23 mmol/L (22-29); Chloride 106 mmol/L (96-108); Estimated Glomerular Filt Rate 33; Glucose Random 144 mg/dL (60-115); Potassium 3.6 mmol/L (3.3-5.1); Sodium 140 mmol/L (135-145)
== END 2025-02-12 06:06 | disposition home or self-care (01) ==
LOC: HO.MMNH2L 06:05
PROVIDERS: Visit Provider Student in an Organized Health Care Education/Training Program
DX: Z13.89 Encounter for screening for other disorder (principal)
CPT/HCPCS: 36415; 80048; 85025

== ENCOUNTER 2025-03-20 13:46 | Outpatient (AMB) | payer MEDICARE, MEDICAID, SELFPAY ==
[2025-03-20 13:53] VITALS: BP 126/78; PULSE 99; BMI 27.9
--- NOTE | 2025-03-20 13:53 | MHC.OFFVIS ---
Vital Signs 03/20/25 13:53 Height 5 ft 1 in Weight 147 lb 11.355 oz BMI 27.9 BP 126/78 Blood Pressure Location Lt brachial Position Sitting Pulse 99 Intake Visit Reasons: 6 mth f/up thinking ICD r/s 02/15/25 Allergies No Known Allergies [No Known Allergies*] Allergy (Verified 01/01/25 10:13) Medication List - Last Reconciled 03/20/25 by Terell Macias MD atorvastatin 40 mg PO DAILY 90 days famotidine 10 mg (1/2 x 20 mg) PO BID gabapentin 400 mg PO DAILY glipizide 10 mg (2 x 5 mg) PO BID isosorbide mononitrate ER 30 mg PO DAILY metoprolol tartrate 12.5 mg (1/2 x 25 mg) PO BID 90 days nitroglycerin 0.3 mg sublingual Q5M PRN sacubitril-valsartan 24-26 mg (Entresto) 1 tab PO BID spironolactone 12.5 mg (1/2 x 25 mg) PO DAILY 90 days HPI Comments Details: Anjana comes for follow-up. She has worsening of her lung cancer with undergoing surgery for cerebellar metastases within last 6 months. She has not had any significant heart failure symptoms. Remains on home oxygen. Limited functionality. No orthopnea, PND, leg edema. Takes all her medications currently. ON LICENSE OF [facility] Medical History Heart failure with reduced ejection fraction History of ST elevation myocardial infarction (STEMI) (~03/2013) On home O2 Personal history of nicotine dependence Malignant neoplasm of upper lobe of left lung (~2018) Tubular adenoma of colon COPD (chronic obstructive pulmonary disease) Exercise hypoxemia Emphysema lung DM2 (diabetes mellitus, type 2) HLD (hyperlipidemia) HTN (hypertension) PVD (peripheral vascular disease) CAD (coronary artery disease) Surgical History H/O brain surgery (~11/2024) History of cardiac cath (~03/2013) History of lung surgery (~03/2019) History of bronchoscopy (~03/2019) History of colonoscopy (~12/2019) Social History Patient Tobacco Use Status: Former Tobacco user Review of Systems Const Denies chills, Denies fatigue, Denies fever(s), Denies frequent falls, Denies weakness, Denies weight gain and Denies weight loss ENT Denies dizziness Card Denies chest pain, Denies leg edema, Denies lightheadedness, Denies palpitations, Denies dyspnea, Denies dyspnea on exertion, Denies orthopnea and Denies other (loss of consciousness) Resp Denies cough, Denies dyspnea and Denies dyspnea on exertion GI Denies hematochezia and Denies change in stool character Musc Denies abnormal gait, Denies muscle weakness, Denies numbness, Denies radiating pain into limb and Denies tingling Neuro Denies Abnormal speech present, Denies abnormal gait, Denies dizziness, Denies frequent falls, Denies numbness, Denies tingling and Denies weakness Endo Denies fatigue and Denies palpitations Physical Exam Vital Signs: Last Vital Signs Pulse 99 03/20/25 13:53 BP 126/78 03/20/25 13:53 BMI result Body Mass Index 27.9 Const General: cooperative, comfortable, no acute distress, alert and awake Nutritional Appearance: overweight Orientation/consciousness: patient oriented x3 Limitations: no limitations Neck Neck: Yes trachea midline, Yes supple and Yes no JVD Resp Effort & Inspection: normal respiratory effort Auscultation: no wheezes and diminished lung sounds Cardio Jugular venous distension: no JVD Palpation: abnormal PMI Rate: regular rate Rhythm: regular rhythm Heart sounds: S1 normal heart sound present, S2 normal heart sound present, no click, no gallops and no murmurs GI Auscultation: normal bowel sounds Skin General skin exam: no rashes or lesions noted Neuro General: patient oriented x3 and no focal motor deficits Speech: No Abnormal speech present Extrem General: Yes no clubbing, cyanosis or edema Assessment & Plan Assessment & Plan (1) Heart failure with reduced ejection fraction: Code(s): I50.20 - Unspecified systolic (congestive) heart failure Category: Medical Plan: Heart failure with reduced ejection fraction this elderly woman with multiple comorbidities including chronic respiratory failure related to COPD as well as advanced malignancy with cerebellar metastasis undergoing surgery. She overall has limited prognosis. Clinically euvolemic and well compensated. Continue current diuretic regimen. Not much room for neurohormonal modulation uptitration due to blood pressure. Continue current therapy. Heart failure management discussed. Daily weight monitoring avoidance salt loading was discussed. Follow-up echocardiogram. She has not a candidate for ICD placement given her overall limited prognosis (2) CAD (coronary artery disease): Comment: (Hx STEMI 04/10/2013 - Cardiac Cath/?stent @ [facility]) Code(s): I25.10 - Atherosclerotic heart disease of [place] coronary artery without angina pectoris Category: Medical Plan: CAD with prior CO. Continue statin therapy. Should be on low-dose aspirin therapy. Continue current blood pressure control which is currently well optimized. Continue conservative management. Will follow up in 6 months time. Medications: New furosemide (Lasix) 20 mg PO DAILY PRN 20 tabs 3RF edema Coding Level of Care Code Est Pt Level 4 (62077) Complex EM visit Add On G2211 Diagnoses Heart failure with reduced ejection fraction I50.20 CAD (coronary artery disease) I25.10
--- OUTSIDE RECORDS SUMMARY | 2025-03-20 14:03 | XMS_ITS | Clinical Summary ---
Author Organization [facility] Address [address] [place] [address] Phone Care Team Providers Care Diamond Setter Apprentice Name Role Phone Hayden Canchola MD Primary Care Provider Allergies No known active allergies Medications aspirin [...] age to complete this topic Insurance Medicaid [place] Medicare Medicaid [place] Medicare Care Teams Diamond Setter Apprentice Relationship Specialty Start Date End Date Hayden Canchola MD [id number] [place] PCP - General Internal Medicine 06/11/21
== END 2025-03-20 14:18 | disposition home or self-care (01) ==
PROVIDERS: PCP Internal Medicine; Visit Provider Internal Medicine Cardiovascular Disease
DX: I50.20 Unspecified systolic (congestive) heart failure (principal); I25.10 Atherosclerotic heart disease of native coronary artery without angina pectoris
CPT/HCPCS: 99214; G2211

== ENCOUNTER → 2025-03-20 13:46 | Outpatient (BNVA) | payer MEDICARE, MEDICAID, SELFPAY | PROVIDERS: PCP Internal Medicine; Visit Provider Internal Medicine Cardiovascular Disease | DX: I50.20 Unspecified systolic (congestive) heart failure (principal); I25.10 Atherosclerotic heart disease of native coronary artery without angina pectoris | CPT/HCPCS: 99212 ==

== ENCOUNTER 2025-03-28 13:04 | Outpatient (AMB) | payer MEDICARE, MEDICAID, SELFPAY ==
[2025-03-28 13:16] VITALS: BP 114/60; PULSE 100; TEMP 36.3; O2SAT 96; BMI 27.8
--- NOTE | 2025-03-28 13:16 | A.OFFPC_ITS ---
Vital Signs 03/28/25 13:16 Height 5 ft 1 in Weight 147 lb BMI 27.8 BP 114/60 Blood Pressure Location Lt brachial Position Sitting Pulse 100 Pulse Source Pulse Oximeter Temp 97.4 F Temp Source Axillary Pulse Oximetry (%) 96 Oxygen Delivery Method Room Air Intake Visit Reasons: Routine Project Development Coordinator Required: No Accompanied by: Brother Allergies No Known Allergies [No Known Allergies*] Allergy (Verified 03/28/25 13:22) Tobacco use date assessed: 03/28/25 Fall risk assessment: 1 Fall in past year Last assessed Fall Risk: 03/28/25 Dental Screening Dental Screen Date: 03/28/25 Did you have a dental visit in the last 12 months?: No Did you have a dental problem in the last 6 months where you did not have access to dental care?: No [facility] Medical History (Updated 03/28/25 @ 13:42 by Montana Portillo MD) Heart failure with reduced ejection fraction History of ST elevation myocardial infarction (STEMI) (~03/2013) On home O2 Personal history of nicotine dependence Malignant neoplasm of upper lobe of left lung (~2018) Tubular adenoma of colon COPD (chronic obstructive pulmonary disease) Exercise hypoxemia Emphysema lung DM2 (diabetes mellitus, type 2) HLD (hyperlipidemia) HTN (hypertension) PVD (peripheral vascular disease) CAD (coronary artery disease) Surgical History H/O brain surgery (~11/2024) History of cardiac cath (~03/2013) History of lung surgery (~03/2019) History of bronchoscopy (~03/2019) History of colonoscopy (~12/2019) Family History (Updated 03/28/25 @ 13:26 by Gerri Olivo MA) Mother No problems noted. Father No problems noted. Social History Housing: House Patient Tobacco Use Status: Former Tobacco user e-Cigarette/Vaping Use: Former Use service: No Current occupational status: retired Cognitive needs: Yes (walker) Hearing needs: No Vision needs: Yes (reading glasses) Questionnaire PHQ-9 Over the last 2 weeks, how often have you been bothered by any of the following problems? 1. Little interest or pleasure in doing things: not at all 2. Feeling down, depressed, or hopeless: not at all 3. Trouble falling or staying asleep, or sleeping too much: not at all 4. Feeling tired or having little energy: not at all 5. Poor appetite or overeating: not at all 6. Feeling bad about yourself - or that you are a failure or have let yourself or your family down: not at all 7. Trouble concentrating on things, such as reading the newspaper or watching television: not at all 8. Moving or speaking so slowly that other people could have noticed. Or the opposite - being so fidgety or restless that you have been moving around a lot more than usual: not at all 9. Thoughts that you would be better off or of hurting yourself in some way: not at all Total score: 0 Source: Developed by Drs. Ronny Branham, Radha Foster, Jan Valdez and colleagues, with an educational mundo from [employer]. Thrive Questionnaire Date Thrive assessed: 03/28/25 I am a: Patient Within the past 12 months, did the food you bought not last and you didn't have the money to get more?: Never true Within the past 12 months, did you worry whether your food would run out before you got money to buy more?: Never true Do you have trouble paying for medicines?: No Do you have trouble getting transportation to medical appointments?: No Do you have trouble paying your heating and electricity bill?: No Do you have trouble taking care of your child, family member or friend?: No Do you have trouble with day-to-day activities such as bathing, preparing meals, shopping, managing finances, etc.?: No Are you currently unemployed and looking for a job?: No Are you interested in more education?: No THRIVE Score: 0 AUDIT C Alcohol Use Questionnaire (AUDIT-C) 1. How often do you have a drink containing alcohol?: Never 3. How often do you have six or more drinks on one occasion?: Never Total Score: 0 ABRAHAM-7 AMB Questionnaire ABRAHAM-7 Date ABRAHAM - 7 assessed: 03/28/25 Feeling nervous, anxious, or on edge: 0 = Not at all Not being able to stop or control worryin = Not at all Worrying too much about different things: 0 = Not at all Trouble relaxin = Not at all Being so restless that it is hard to sit still: 0 = Not at all Becoming easily annoyed or irritable: 0 = Not at all Feeling afraid as if something awful might happen: 0 = Not at all Total ABRAHAM-7 score (0-4 normal; 5-9 mild; 10-14 moderate; 15-21 severe): 0 Source: Developed by Drs. Ronny Branham, Radha Foster, Jan Valdez and colleagues, with an educational mundo from [employer]. Physical exam (Primary Care) Vital Signs: Last Vital Signs Temp 97.4 F 03/28/25 13:16 Pulse 100 03/28/25 13:16 BP 114/60 03/28/25 13:16 Pulse Ox 96 03/28/25 13:16 Oxygen Delivery Method Room Air 03/28/25 13:16 BMI result Body Mass Index 27.8 Tobacco/Smoking Status: Tobacco use Status Tobacco use date assessed 03/28/25 03/28/25 13:27 Patient Tobacco Use Status Former Tobacco user 03/28/25 13:19 e-Cigarette/Vaping Use Former Use 03/28/25 13:27 PHQ-9: PHQ-9 Score PHQ-9: Total score 0 03/28/25 13:27 Thrive Assessment: Date of Thrive Assessment Date Thrive assessed 03/28/25 03/28/25 13:27 Coding Level of Care Code New Pt Level 4 (60956) Complex EM visit Add On G2211 Diagnoses DM2 (diabetes mellitus, type 2) E11.9 Assessment & Plan Assessment & Plan (1) DM2 (diabetes mellitus, type 2): Code(s): E11.9 - Type 2 diabetes mellitus without complications Category: Medical Plan: A1c has been ordered. Patient encouraged to get blood work done. Plan History of Present Illness - The patient is a 79-year-old female presenting with follow-up for diabetes management. - Previously hospitalised in January with high blood glucose levels detected. - Currently not monitoring glucose levels at home or taking insulin. - Discontinued use of Trulicity; previously on Glipizide. - Experiences nerve pain and hypertension. - Uses a walker for ambulation and reports dizziness during certain activities. - Recently underwent head surgery; no active stitches remain, some scar tissue present. Social History - The patient relies on a walker for mobility. - No longer drives; transportation provided by family member (nephew). - Experiences limited functional status, particularly with household tasks due to dizziness. Review of Systems - Neurological: Reports dizziness during activities. - Musculoskeletal: Reports nerve pain. - Cardiovascular: Denies current issues aside from medication-related hypotension. - Endocrine: Reports diabetes. - Gastrointestinal: Denies issues. - Dermatological: Denies new or worsening symptoms post-surgery. Physical Exam General: Cooperative and healthy appearing Nutritional Appearance: Well nourished Orientation/consciousness: Patient oriented x3 Limitations: No limitations Head: Normal to inspection General: Appearance normal, both eyes and all related structures Neck: Normal visual inspection Chest: Normal palpation of entire chest wall Respiratory: N ormal respiratory effort Neurology: Patient oriented x3, uses a walker to ambulate, reports dizziness and trouble remembering things. Results Plan 1. Type 2 Diabetes Mellitus - Blood work to be repeated. - Medication adjustment may be considered post-results. - Televisit follow-up discussed. 2. Hypertension - Current medication regimen continued. - Attention to any dizziness-linked medication adjustments necessary. 3. Nerve Pain - Maintain current pain management medications. 4. Dizziness - Advised activity modification to mitigate symptoms. 5. Recent Head Surgery - Ongoing monitoring of healing and residual surgical effects. Discussion Notes I reviewed with the patient the concern of elevated blood glucose levels and the need to repeat her blood work for accurate assessment. We previously identified high glucose levels during her January hospitalization. I will reassess her diabetes management strategy upon receiving updated diagnostic information and advised a follow-up via televisit. Concerning her hypertension and noted dizziness, I explained the potential link between blood pressure medications and dizziness, especially during abrupt movements or physical exertion, and reinforced the importance of activity modification. Pain management for nerve pain is to continue under her current treatment plan unless further intervention is required. Post-head surgery, the importance of monitoring healing and any concerns regarding scar tissue was emphasized. Patient Instructions - Get blood work done to evaluate current blood sugar levels. - Expect a call for a televisit to discuss lab work results. - Use caution with physical activity to prevent dizziness; rest if feeling woozy. - Continue taking all prescribed medications for diabetes, hypertension, and nerve pain. - Report any new or worsening symptoms promptly. - Follow up in six months or sooner based on lab results. Orders: Orders Complete Blood Count no Diff Today E11.9 - Type 2 diabetes mellitus without complications Lipid Panel Today E11.9 - Type 2 diabetes mellitus without complications Liver Panel Today E11.9 - Type 2 diabetes mellitus without complications Thyroid Stimulating Hormone Today E11.9 - Type 2 diabetes mellitus without complications UA and rflx microscopic Today E11.9 - Type 2 diabetes mellitus without complications Hemoglobin A1c Today E11.9 - Type 2 diabetes mellitus without complications Basic Metabolic Panel Today E11.9 - Type 2 diabetes mellitus without complications Microalbumin, Random (w Creat) Today E11.9 - Type 2 diabetes mellitus without complications Medications: Refilled atorvastatin 40 mg PO DAILY 90 tabs 3RF 90 days
--- OUTSIDE RECORDS SUMMARY | 2025-03-28 13:27 | XMS_ITS | Clinical Summary ---
Author Organization [facility] Address [address] [place] [address] Phone Care Team Providers Care Paper Mill Supervisor Name Role Phone Hayden Canchola MD Primary Care Provider [phone] Allergies No known active allergies Medications aspirin [...] age to complete this topic Insurance Medicaid [place] Medicare Medicaid [place] Medicare Care Teams Paper Mill Supervisor Relationship Specialty Start Date End Date Hayden Canchola MD [address] [place] PCP - General Internal Medicine 06/11/21
== END 2025-03-28 13:43 | disposition home or self-care (01) ==
LOC: HO.HMCHD 13:04
PROVIDERS: PCP Internal Medicine; Visit Provider Internal Medicine
DX: E11.9 Type 2 diabetes mellitus without complications (principal)

== ENCOUNTER 2025-03-28 13:04 | Outpatient (REF) | payer MEDICARE, MEDICAID, SELFPAY ==
[2025-03-28 14:26] LABS: Hematocrit 37.3 % (37.0-47.0); Hemoglobin 11.4 g/dl (12.0-16.0); Mean Corpuscular HGB Conc 30.6 g/dl (31.0-35.0); Mean Corpuscular Hemoglobin 30.2 pg (27.0-33.0); Mean Corpuscular Volume 98.7 fL (80.0-98.0); Mean Platelet Volume 9.2 fL (9.4-12.3); Platelet Count 326 X10*3/uL (160-400); Red Blood Count 3.78 X10*6/uL (4.20-5.50); Red Cell Distribution Width 15.3 % (11.0-16.0); White Blood Count 8.9 X10*3/uL (4.8-10.8)
[2025-03-28 14:35] LABS: Estimated Average Glucose 192 mg/dL; Hemoglobin A1C 203.4028 umol/L; Hemoglobin A1c % 8.3 % (<6.0)
[2025-03-28 15:19] LABS: Thyroid Stimulating Hormone 1.79 uIU/mL (0.32-4.0)
[2025-03-28 15:36] LABS: Anion Gap 14 (12-20)
[2025-03-28 15:41] LABS: Alanine Aminotransferase 8 U/L (0-31); Albumin Level 3.5 g/dL (3.5-5.0); Alkaline Phosphatase 95 U/L (39-117); Aspartate Amino Transferase 14 U/L (5-31); Bilirubin Direct 0.2 mg/dL (0.0-0.5); Bilirubin Total 0.7 mg/dL (0.0-1.0); Blood Urea Nitrogen 25 mg/dL (9-16); Carbon Dioxide 23 mmol/L (22-29); Chloride 106 mmol/L (96-108); Cholesterol 160 mg/dL (<200); Estimated Glomerular Filt Rate 29; Glucose Random 168 mg/dL (60-115); HDL Cholesterol 31 mg/dL (>40); LDL Cholesterol Calculated 94 mg/dL (<100); Potassium 4.3 mmol/L (3.3-5.1); Sodium 139 mmol/L (135-145); Total Protein 7.3 g/dL (6.5-8.0); Triglycerides 175 mg/dL (<150)
== END 2025-03-28 13:05 | disposition home or self-care (01) ==
LOC: HO.LAB 13:04
PROVIDERS: PCP Internal Medicine; Visit Provider Internal Medicine
DX: E11.9 Type 2 diabetes mellitus without complications (principal)
CPT/HCPCS: 36415; 80048; 80061; 80076; 83036; 84443; 85027; 99202

== ENCOUNTER → 2025-04-20 13:35 | Outpatient (BNVA) | payer MEDICARE, MEDICAID, SELFPAY | PROVIDERS: PCP Internal Medicine | DX: Z13.89 Encounter for screening for other disorder (principal) ==

== ENCOUNTER 2025-04-24 14:50 | Outpatient (REF) | payer MEDICARE, MEDICAID, SELFPAY ==
[2025-04-24 15:17] LABS: Hematocrit 34.8 % (37.0-47.0); Hemoglobin 11.3 g/dl (12.0-16.0); Mean Corpuscular HGB Conc 32.5 g/dl (31.0-35.0); Mean Corpuscular Hemoglobin 31.7 pg (27.0-33.0); Mean Corpuscular Volume 97.8 fL (80.0-98.0); NRBC Abs Auto 0.000 X10*3/uL (0.0-0.012); NRBC Pct Auto 0.0 /100WBC (0.0-0.2); Platelet Count 244 X10*3/uL (160-400); Red Blood Count 3.56 X10*6/uL (4.20-5.50); White Blood Count 6.7 X10*3/uL (4.8-10.8)
[2025-04-24 15:24] LABS: Appearance Urine Clear; Glucose Urine UA >=1000 mg/dL (Negative); PH 5.5 (5.0-9.0); Specific Gravity - Urine 1.015 (1.005-1.025); UMIC TRIGGER UA YES
[2025-04-24 15:43] LABS: Anion Gap 14 (12-20); Blood Urea Nitrogen 26 mg/dL (9-16); Calcium 8.7 mg/dL (8.4-10.2); Carbon Dioxide 19 mmol/L (22-29); Chloride 115 mmol/L (96-108); Estimated Glomerular Filt Rate 24; Potassium 4.2 mmol/L (3.3-5.1); Sodium 144 mmol/L (135-145)
--- OUTSIDE RECORDS SUMMARY | 2025-04-24 15:47 | XMS_ITS | Patient Health Record ---
Author Organization [facility] Address [address] [place] [address] Care Team Providers Care Agricultural Appraiser Name Role Phone Hayden Canchola MD Primary Care Provider Unavaila Tonny Carvajal Jr Unavailable Coleman Faye Unavailable Unavailable Reason For Referral No Information Medications Medication SIG (Take, Route, Frequency, Duration) Notes Start Date End Date Status Isosorbide Dinitrate 30 MG 1 tablet Oral ly Twice a day Active Aspirin 81 MG 1 tablet Orally Once a day Active Gabapentin 100 MG 1 capsule Orally twi ce a day Active amLODIPine Besylate 5 MG 1 tablet Orally Once a day Active Simvastatin 80 MG 1 tablet in the evening Orally Once a day Active metFORMIN HCl 500 MG 1 tablet with meals Orally Twice a day Active Metoprolol Tartrate 50 MG 1 tablet Orall y every 12 hrs Active Januvia 100 MG 1 tablet Orally Once a day for 30 day(s) Active Clopidogrel Bisulfate 75 MG 1 tablet Orally Once a day Active MiraLax (colon prep) 8.3 ounce ((238) grams mixed with Gatorade or Crystal Light orally begin at 5:00 p.m. the day before the procedure for 1 day 08/31/2019 Active Folic Acid Not-Takin g glipiZIDE XL 2.5 MG 1 tablet with breakfast Orally Once a day for 30 day(s) Active Nitroglycerin 0.4 MG 1 Sublingual prn Active Problems Problem Type SNOMED Code ICD Code Onset Dates Problem Status W/U Status Risk Notes Problem [id number] Abnormal PET scan of colon (R94.8) Active confirmed Plan Of Treatment Future Test Test Name Order Date COLONOSCOPY 06/06/2015 COLONOSCOPY 08/31/2019 Insurance Providers Payer Name Payer Address Payer Phone Subscriber Number Group Number Insured Name Patient Relationship to Insured Coverage Start Date Coverage End Date MEDICARE OF [place] [address] [place] [id number] [id number] GISELE FRANCISCO Self - patient is the insured [facility] [address] [place] [phone] [id number] GISELE FRANCISCO Self - patient is the insured Medical (General) History Medical History History ICD Code colonoscopy 10/11/15, small tubular reyna krishna hypertension elevated Cholesterol coronary artery disease with history of [place], 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 Hope 03/2019
--- OUTSIDE RECORDS SUMMARY | 2025-04-24 15:47 | XMS_ITS | Clinical Summary ---
Author Organization [facility] Address [address] [place] [phone] Phone Care Team Providers Care Production Director Name Role Phone Physician, Pcp Unknown Primary [...] 12 Units under the skin at bedtime. 5 Active metoprolol tartrate (LOPRESSOR) 25 mg tablet Take 2 tablets (50 mg total) by mouth 2 (two) times a day. 5 02/08/20 26 Active furosemide (LASIX) 40 mg tablet Take 1 tablet (40 mg total) by mouth 2 (two) times daily morning and afternoon. 02/08/20 26 Active hydrALAZINE (APRESOLINE) 10 mg tablet Take 1 tablet (10 mg total) by mouth 2 (two) times a day. 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 ([facility] V24, [facility] V28) 06/16/2019 Encounters Date Type Department Care Team Description 01/31/2025 10:56 AM EDT - 02/07/2025 3:00 PM EDT Hospital Encounter [facility] [address] [place] [address] Xavier Hooper MD Jones, Christopher, MD Mohani, Priya, MD Surendran, MD Elda Syncope and collapse (Primary Dx); Acute hypoxic respiratory failure ([facility] V24, [facility] V28); Urinary tract infection without hematuria, site unspecified Discharge Disposition: [facility] Facility from Last 3 Months Social History Tobacco [...] 80 02/07/2025 2:11 PM EDT Temperature 36.1 C (97 F) 02/07/2025 2:11 PM EDT Respiratory Rate 17 [...] Description 05/14/2025 9:45 AM EDT Office Visit [facility] Hematology Oncology [address] [place] [address] Coleman Faye MD [address] [place] [address] Health Maintenance Due Date Last Done Comments Diabetes: Annual Foot Exam 1955 Diabetes: Annual Retina Eye Exam 1955 COVID-19 Vaccine (3 - Pfizer risk series) 04/30/2021 04/02/2021, 03/12/2021 Cholesterol Screening (Lipid Panel) 10/02/2022 Depression Screening 10/02/2022 Lung Cancer Screening (Low Dose [...] PM EDT POCT GLUCOSE BLOOD Routine 02/02/2025 3 :52 PM EDT POCT GLUCOSE BLOOD Routine 02/02/2025 [...] PM EDT ARTERIAL BLOOD GAS STAT 02/01/2025 4 :14 PM EDT ECG 12-LEAD Routine 02/01/2025 4:03 [...] ECG 12-LEAD STAT 01/31/2025 11:07 AM EDT from Last 3 Months Results * (ABNORMAL) POCT Glucose, blood (02/07/2025 11:37 AM EDT) Only the most recent of29 resultswithin the time period is included. Glucose POCT 243(H) 70 - 100 mg/dL 02/07/2025 11:38 AM EDT [facility] Blood Capillary blood specimen / Unknown 02/07/2025 11:37 AM EDT 02/07/2025 11:39 AM EDT us Elda Mahmood MD LAB POINT OF CARE T EST DOCKED DEVICE UNSOLICITED RESULTS Final Result [facility] [address] [place] [address], * (ABNORMAL) CBC auto differential (02/07/2025 6:07 AM EDT) Only the most recent of8 resultswithin the time period is included. WBC 7.3 4.8 - 10.8 K/mcL LAB HEMETOLOGY METHOD 02/07/2025 7:25 AM EDT [facility] RBC 3.50(L) 3.80 - 4.80 M/mcL LAB HEMETOLOGY METHOD 02/07/2025 7:25 AM EDT [facility] Hemoglobin 10.5(L) 11.5 - 16.0 g/dL LAB HEMETOLOGY METHOD 02/07/2025 7:25 AM EDT [facility] Hematocrit 33.7(L) 35.0 - 47.0 % LAB HEMETOLOGY METHOD 02/07/2025 7:25 AM EDT [facility] MCV 95.2 79.0 - 98.0 FL LAB HEMETOLOGY METHOD 02/07/2025 7:25 AM EDT [facility] MCH 29.7 27.0 - 32.0 pcg LAB HEMETOLOGY METHOD 02/07/2025 7:25 AM EDT [facility] MCHC 31.2(L) 32.0 - 37.0 g/dL LAB HEMETOLOGY METHOD 02/07/2025 7:25 AM EDT [facility] RDW 18.7(H) 11.0 - 15.0 % LAB HEMETOLOGY METHOD 02/07/2025 7:25 AM EDT [facility] Platelets 355 130 - 400 K/mcL LAB HEMETOLOGY METHOD 02/07/2025 7:25 AM EDT [facility] MPV 9.3 7.0 - 11.0 FL LAB HEMETOLOGY METHOD 02/07/2025 7:25 AM [facility] NRBC 0.0 <1.0 % LAB HEMETOLOGY METHOD 02/07/2025 7:25 AM [facility] NRBC Absolute 0.00 <0.10 K/mcL LAB HEMETOLOGY METHOD 02/07/2025 7:25 AM [facility] Neutrophils Relative 65.2 % LAB HEMETOLOGY METHOD 02/07/2025 7:25 AM [facility] Lymphocytes Relative 13.5 % LAB HEMETOLOGY METHOD 02/07/2025 7:25 AM [facility] Monocytes Relative 10.2 % LAB HEMETOLOGY METHOD 02/07/2025 7:25 AM [facility] Eosinophils Relative 8.9 % LAB HEMETOLOGY METHOD 02/07/2025 7:25 AM [facility] Basophils Relative 1.1 % LAB HEMETOLOGY METHOD 02/07/2025 7:25 AM [facility] Immature Granulocytes Relative 1.1 % LAB HEMETOLOGY METHOD 02/07/2025 7:25 AM [facility] Neutrophils Absolute 4.78 1.50 - 7.00 K/mcL LAB HEMETOLOGY METHOD 02/07/2025 7:25 AM [facility] Lymphocytes Absolute 0.99(L) 1.00 - 5.00 K/mcL LAB HEMETOLOGY METHOD 02/07/2025 7:25 AM [facility] Monocytes Absolute 0.75 0.20 - 1.00 K/mcL LAB HEMETOLOGY METHOD 02/07/2025 7:25 AM [facility] Eosinophils Absolute 0.65(H) 0.00 - 0.50 K/mcL LAB HEMETOLOGY METHOD 02/07/2025 7:25 AM [facility] Basophils Absolute 0.08 0.00 - 0.20 K/[facility] LAB HEMETOLOGY METHOD 02/07/2025 7:25 AM EDT [facility] Immature Granulocytes Absolute 0.08(H) 0.00 - 0.03 K/[facility] LAB HEMETOLOGY METHOD 02/07/2025 7:25 AM EDT [facility] Blood Venous blood specimen / Unknown Venipuncture / Unknown 02/07/2025 6:07 AM EDT 02/07/2025 7:06 AM EDT us Ekta Chapin MD LAB BLOOD ORDERABLES Final Resul t Performing Organization Address [facility] [[email or web address]] de Phone Number [facility] [address] [place] [address], [place] [phone] * Magnesium (02/07/2025 6:07 AM EDT) Only the most recent of7 resultswithin the time period is included. Magnesium 1.9 1.9 - 2.6 mg/dL LAB CHEMISTRY METHOD 02/07/2025 7:39 AM EDT [facility] Blood Venous blood specimen / Unknown Venipuncture / Unknown 02/07/2025 6:07 AM EDT 02/07/2025 7:07 AM EDT us Ekta Chapin MD LAB BLOOD ORDERABLES Final Resul t Performing Organization Address City/[facility]/ZIP Co de Phone Number [facility] [address] [place] [address], [place] [phone] * (ABNORMAL) Basic metabolic panel (02/07/2025 6:07 AM EDT) Only the most recent of9 resultswithin the time period is included. Sodium 138 133 - 145 mmol/L LAB CHEMISTRY METHOD 02/07/2025 7:39 AM EDT [facility] Potassium 4.1 3.5 - 5.5 mmol/L LAB CHEMISTRY METHOD 02/07/2025 7:39 AM [facility] Chloride 105 96 - 110 mmol/L LAB CHEMISTRY METHOD 02/07/2025 7:39 AM [facility] CO2 22 21 - 32 mmol/L LAB CHEMISTRY METHOD 02/07/2025 7:39 AM [facility] Anion Gap 11 3 - 11 LAB CHEMISTRY METHOD 02/07/2025 7:39 AM [facility] Glucose 147(H) 70 - 100 mg/dL LAB CHEMISTRY METHOD 02/07/2025 7:39 AM [facility] BUN 25 5 - 25 mg/dL LAB CHEMISTRY METHOD 02/07/2025 7:39 AM [facility] Creatinine 1.61(H) 0.50 - 1.10 mg/dL LAB CHEMISTRY METHOD 02/07/2025 7:39 AM [facility] eGFR 32(L) >=60 mL/min/1. 73m2 LAB CHEMISTRY METHOD 02/07/2025 7:39 AM [facility] Comment:Calculation based on the Chronic Kidney Disease Epidemiology Collaboration (CKD-EPI) equation refit without adjustment for race. BUN/Creatinine Ratio 15.5 LAB CHEMISTRY METHOD 02/07/2025 7:39 AM [facility] Calcium 8.2(L) 8.5 - 10.5 mg/dL LAB CHEMISTRY METHOD 02/07/2025 7:39 AM [facility] Blood Venous blood specimen / Unknown Venipuncture / Unknown 02/07/2025 6:07 AM EDT 02/07/2025 7:07 AM EDT us Ekta Chapin MD LAB BLOOD ORDERABLES Final Resul t [facility] [address] [place] [address], * Molecular intelligence tumor profiling (02/06/2025 1:49 PM EDT) Tissue Historical Provider LAB MOLECULAR DIAGNOSTICS ORDERABLES Final Result * Transfuse RBC (02/04/2025 1:45 AM EDT) Only the most recent of2 resultswithin the time period is included. Ekta Chapin MD BLOOD TRANSFUSION ORDERABLES Fin al Result * Prepare RBC: 1 Units (02/03/2025 4:53 PM EDT) Only the most recent of2 resultswithin the time period is included. Product Code [id number] 02/04/2025 9:54 AM EDT [facility] Unit Number [id number] 02/05/20 9:54 AM EDT [facility] Crossmatch Compatible 02/03/2025 10:52 PM EDT [facility] Dispense Status Released From Crossmatch 02/04/2025 9:54 AM EDT [facility] Unit ABO Rh ONEG 02/04/2025 9:54 AM EDT [facility] Unit Expiration Date Time [id number] 02/04/2025 9:54 AM EDT [facility] Unit Blood Type 9500 02/04/2025 9:54 AM EDT [facility] Blood Venous blood specimen / Unknown 02/03/2025 4:53 PM EDT 02/03/2025 9:40 AM EDT us Ekta Chapin MD BLOOD BANK PRODUCT ORDERABLES Fi nal Result [facility] [address] [place] [address], * (ABNORMAL) Hemoglobin and hematocrit (02/03/2025 3:43 PM EDT) Hemoglobin 7.1(L) 11.5 - 16.0 g/dL LAB HEMETOLOGY METHOD 02/03/2025 4:07 PM EDT [facility] Hematocrit 24.0(L) 35.0 - 47.0 % LAB HEMETOLOGY METHOD 02/03/2025 4:07 PM EDT [facility] Blood Venous blood specimen / Unknown Venipuncture / Unknown 02/03/2025 3:43 PM EDT 02/03/2025 4:01 PM EDT us Ekta Chapin MD LAB BLOOD ORDERABLES Final Resul t [facility] [address] [place] [address], [place] [phone] * XR Chest 1 View (02/03/2025 11:17 [...] Signed Date: 02/03/2025 11:35 ET Workstation ID: [id number] Transcribed By: Self Edit Transcribed Date: 02/03/2025 11:34 ET Narrative 02/03/2025 11:35 AM EDT PROCEDURE: AP chest radiograph. HISTORY: infection. COMPARISON: 02/01/2025. FINDINGS: Stable line and and scarring in the upper left lung. Mild diffuse interstitial prominence is improved, possibly improving interstitial edema. Atherosclerotic calcification of the aorta. Unchanged cardiomediastinal contours. No pneumothorax. Degenerative changes of the spine. Procedure Note Uziel [...] Signed Date: 02/03/2025 11:35 ET Workstation ID: [id number] Transcribed By: Self Edit Transcribed Date: 02/03/2025 11:34 ET us Ekta Chapin MD IMG XR PROCEDURES Final Result * Type and screen (02/03/2025 9:36 AM EDT) Pathologist [facility] ABO Group O 02/03/2025 10:41 AM EDT [facility] Rh Type Negative 02/03/2025 10:41 AM EDT [facility] Antibody Screen Negative 02/03/2025 10:41 AM EDT [facility] Blood Venous blood specimen / Unknown Venipuncture / Unknown 02/03/2025 9:36 AM EDT 02/03/2025 9:40 AM EDT us Ekta Chapin MD LAB BLOOD BANK TEST ORDERABLES F inal Result [facility] [address] [place] [address], * (ABNORMAL) Transferrin (02/03/2025 6:56 AM EDT) Transferrin 119(L) 200 - 360 mg/dL 02/05/2025 2:58 AM EDT [facility] Comment: Test performed at [facility], [address] , [place] [address] Sara Hook MD, PhD - Aerial Tram Operator Blood Venous blood specimen / Unknown Venipuncture / Unknown 02/03/2025 6:56 AM EDT 02/03/2025 7:30 AM EDT us Ekta Chapin MD LAB BLOOD ORDERABLES Final Resul t [facility] [address] [place] [address] * ECG 12 lead (02/03/2025 12:56 AM EDT) Only the most recent of6 resultswithin the time period is included. [facility] Ventricular Rate ECG 95 BPM GEMUSE Atrial Rate 95 BPM GEMUSE P-R Interval 160 ms GEMUSE QRS Duration 114 ms GEMUSE Q-T Interval 430 ms GEMUSE QTc 540 ms GEMUSE R Lometa 37 degrees GEMUSE T Lometa 131 degrees GEMUSE ECG Interpretation Critical Test [...] us Shraddha PEPE ECG ORDERABLES Final Result GEMUSE * (ABNORMAL) Troponin I high sensitivity (02/02/2025 11:33 PM EDT) Only the most recent of6 resultswithin the time period is included. [facility] High Sensitivity Troponin I 336(HH) <=54 ng/L LAB CHEMISTRY METHOD 02/03/2025 12:29 AM EDT [facility] Blood Venous blood specimen / Unknown Venipuncture / Unknown 02/02/2025 11:33 PM EDT 02/02/2025 11:42 PM EDT Narrative [facility] - 02/03/2025 12:29 AM EDT High levels of biotin in samples may falsely decrease hsTroponin values. Use caution when interpreting hsTroponin results in patients taking biotin who exhibit renal impairment (eGFR <60) or in patients taking more than 20 mg/day of biotin. Shraddha PEPE LAB BLOOD ORDERABLES Final Re sult Performing Organization Address City/[facility]/ZIP Co de Phone Number [facility] [address] [place] [address], * MRSA molecular study (02/02/2025 11:13 AM EDT) [facility] MRSA Screen PCR Not Detected Not Detected LAB MICROBIOLOGY METHOD 02/02/2025 2:06 PM EDT [facility] Swab Both anterior nares / Unknown Non-blood Collection / Unknown 02/02/2025 11:13 AM EDT 02/02/2025 11:49 AM EDT Ekta Chapin MD LAB MICROBIOLOGY - GENERAL ORDER JANESSA Final Result [facility] [address] [place] [address], [place] [phone] * Legionella antigen urine, EIA (02/02/2025 11:12 AM EDT) [facility] Legionella Antigen, Ur Negative Negative 02/02/2025 1:26 PM EDT [facility] Urine Urine specimen from urinary conduit / Unknown Non-blood Collection / Unknown 02/02/2025 11:12 AM EDT 02/02/2025 11:49 AM EDT Narrative [facility] ([facility] - 02/02/2025 1:26 PM EDT Negative for Legionella pneumophilia serogroup 1 antigen. This presumptive result suggests no current or recent infection due to L. pneumophilia serogroup 1. Culture is recommended if Legionella infection is till suspected, as other serogroups and species of Legionella are not detected by this test. us Ekta Chapin MD LAB URINE ORDERABLES Final Resul t [facility] [address] [place] [address], [place] [phone] * (ABNORMAL) TRANSTHORACIC ECHOCARDIOGRAM (TTE) COMPLETE W/ CONTRAST (02/02/2025 10:06 AM EDT) RA Area 13.1 cm2 CV PACS RA 2D Volume 34 mL CV PACS Left Atrium Major Lometa 5.8 cm CV PACS LA Area Sys [...] Volume 50 mL CV PACS MV Deceleration Hunt 4.2 m/s2 CV PACS E Wave Deceleration [...] S' 8 cm/s CV PACS RA Major Lometa 4.3 cm CV PACS RA Major Lometa Index 2.6 2.2 - 2.8 cm/m2 CV [...] Modality Ultrasound Narrative 02/02/2025 11:27 AM EDT Left ventricle cavity size is normal. There [...] comparison. However, compared to echo report from [facility] from November 2024, EF is actually improved. No prior echocardiograms in our system for comparison. Secure text sent to Dr. Chapin. Left Ventricle [...] LAB CHEMISTRY METHOD 02/02/2025 11:08 AM EDT [facility] TIBC 172(L) 250 - 450 mcg/dL LAB CHEMISTRY METHOD 02/02/2025 11:08 AM EDT [facility] Iron Saturation 12(L) 15 - 50 % LAB CHEMISTRY METHOD 02/02/2025 11:08 AM EDT [facility] Blood Venous blood specimen / Unknown Venipuncture / Unknown 02/02/2025 4:19 AM EDT 02/02/2025 4:58 AM EDT us Ekta Chapin MD LAB BLOOD ORDERABLES Final Resul t Performing Organization Address City/[facility]/ZIP Co de Phone Number [facility] [address] [place] [address], [place] [phone] * Ferritin (02/02/2025 4:19 AM EDT) Ferritin 181 8 - 252 ng/mL LAB CHEMISTRY METHOD 02/02/2025 11:08 AM EDT [facility] Blood Venous blood specimen / Unknown Venipuncture / Unknown 02/02/2025 4:19 AM EDT 02/02/2025 4:58 AM EDT us Ekta Chapin MD LAB BLOOD ORDERABLES Final Resul t Performing Organization Address [facility] [[email or web address]] de Phone Number [facility] [address] [place] [address], [place] [phone] * ECG-Annotated (02/02/2025) Provider Ongauri BULLOCK ECG ORDERABLES Final Result * Light blue tube (02/01/2025 4:19 PM EDT) Extra Tube Hold for add-ons. 02/01/2025 6:03 PM EDT [facility] Comment:Auto resulted. Blood Venous blood specimen / Unknown 02/01/2025 4:19 PM EDT 02/01/2025 4:48 PM EDT us Ekta Chapin MD LAB BLOOD ORDERABLES Final Resul t [facility] [address] [place] [address], [place] [phone] * (ABNORMAL) Arterial blood gas (02/01/2025 4:14 PM EDT) [facility] pH, Arterial 7.42 7.35 - 7.45 pH 02/01/2025 4:23 PM EDT [facility] pCO2, Arterial 30(L) 35 - 45 mmHg 02/01/2025 4:23 PM EDT [facility] pO2, Arterial 61(L) 80 - 100 mmHg 02/01/2025 4:23 PM EDT [facility] HCO3, Arterial 21.5(L) 22.0 - 26.0 mmol/L 02/01/2025 4:23 PM EDT [facility] O2 Sat, Arterial 94.6(L) 95.0 - 98.0 % 02/01/2025 4:23 PM EDT [facility] Base Excess, Arterial -4.3(L) -2.0 - 2.0 mmol/L 02/01/2025 4:23 PM EDT [facility] Rafael Test Pass Pass, Unresponsi ve, Line 02/01/2025 4:23 PM EDT [facility] FIO2 40.00 02/01/2025 4:23 PM EDT [facility] Comment:bipap Blood Arterial blood specimen / Unknown Arterial Puncture / Unknown 02/01/2025 4:14 PM EDT 02/01/2025 4:19 PM EDT us Ekta Chapin MD LAB BLOOD ORDERABLES Final Resul t [facility] [address] [place] [address], [place] [phone] * (ABNORMAL) Complete blood count (02/01/2025 5:42 AM EDT) [facility] WBC 8.3 4.8 - 10.8 K/mcL LAB HEMETOLOGY METHOD 02/01/2025 6:21 AM [facility] RBC 2.30(L) 3.80 - 4.80 M/mcL LAB HEMETOLOGY METHOD 02/01/2025 6:21 AM [facility] Hemoglobin 7.2(L) 11.5 - 16.0 g/dL LAB HEMETOLOGY METHOD 02/01/2025 6:21 AM [facility] Hematocrit 23.7(L) 35.0 - 47.0 % LAB HEMETOLOGY METHOD 02/01/2025 6:21 AM [facility] MCV 103.0(H) 79.0 - 98.0 FL LAB HEMETOLOGY METHOD 02/01/2025 6:21 AM [facility] MCH 31.3 27.0 - 32.0 pcg LAB HEMETOLOGY METHOD 02/01/2025 6:21 AM [facility] MCHC 30.4(L) 32.0 - 37.0 g/dL LAB HEMETOLOGY METHOD 02/01/2025 6:21 AM [facility] RDW 18.6(H) 11.0 - 15.0 % LAB HEMETOLOGY METHOD 02/01/2025 6:21 AM [facility] Platelets 304 130 - 400 K/[facility] LAB HEMETOLOGY METHOD 02/01/2025 6:21 AM [facility] MPV 9.4 7.0 - 11.0 FL LAB HEMETOLOGY METHOD 02/01/2025 6:21 AM [facility] NRBC 0.0 <1.0 % LAB HEMETOLOGY METHOD 02/01/2025 6:21 AM [facility] NRBC Absolute 0.00 <0.10 K/mcL LAB HEMETOLOGY METHOD 02/01/2025 6:21 AM EDT [facility] Blood Venous blood specimen / Unknown Venipuncture / Unknown 02/01/2025 5:42 AM EDT 02/01/2025 5:57 AM EDT Xavier Hooper MD LAB BLOOD ORDERABLES Final Resu lt Performing Organization Address [facility]/ZIP Co de Phone Number [facility] [address] [place] [address], [place] [phone] * Lactate, with reflex (01/31/2025 9:54 PM EDT) Only the most recent of2 resultswithin the time period is included. [facility] LACTIC ACID 1.2 0.4 - 2.0 mmol/L LAB CHEMISTRY METHOD 01/31/2025 10:28 PM EDT [facility] Blood Venous blood specimen / Unknown Venipuncture / Unknown 01/31/2025 9:54 PM EDT 01/31/2025 9:59 PM EDT Shawnee PEPE LAB BLOOD ORDERABLES Final Re sult Performing Organization Address [facility] [[email or web address]] de Phone Number [facility] [address] [place] [address], [place] [phone] * Respiratory virus panel molecular study (01/31/2025 6:38 PM EDT) [facility] Adenovirus Detection by PCR Not Detected Not Detected LAB MICROBIOLOGY METHOD 01/31/2025 7:39 PM EDT [facility] Influenza A PCR Not Detected Not Detected LAB MICROBIOLOGY METHOD 01/31/2025 7:39 PM EDT [facility] Influenza B PCR Not Detected Not Detected LAB MICROBIOLOGY METHOD 01/31/2025 7:39 PM EDT [facility] Coronavirus 229E Not Detected Not Detected LAB MICROBIOLOGY METHOD 01/31/2025 7:39 PM EDT [facility] Coronavirus HKU1 Not Detected Not Detected LAB MICROBIOLOGY METHOD 01/31/2025 7:39 PM EDT [facility] Coronavirus OC43 Not Detected Not Detected LAB MICROBIOLOGY METHOD 01/31/2025 7:39 PM EDT [facility] Coronavirus NL63 Not Detected Not Detected LAB MICROBIOLOGY METHOD 01/31/2025 7:39 PM EDT [facility] Parainfluenza Virus 1 Not Detected Not Detected LAB MICROBIOLOGY METHOD 01/31/2025 7:39 PM EDT [facility] Parainfluenza Virus 2 Not Detected Not Detected LAB MICROBIOLOGY METHOD 01/31/2025 7:39 PM EDT [facility] Parainfluenza Virus 3 Not Detected Not Detected LAB MICROBIOLOGY METHOD 01/31/2025 7:39 PM EDT [facility] Parainfluenza Virus 4 Not Detected Not Detected LAB MICROBIOLOGY METHOD 01/31/2025 7:39 PM EDT [facility] RSV PCR Not Detected Not Detected LAB MICROBIOLOGY METHOD 01/31/2025 7:39 PM EDT [facility] Human Metapneumovirus A and B Not Detected Not Detected LAB MICROBIOLOGY METHOD 01/31/2025 7:39 PM EDT [facility] Rhinovirus/Entero virus Not Detected Not Detected LAB MICROBIOLOGY METHOD 01/31/2025 7:39 PM EDT [facility] Bordetella pertussis Not Detected Not Detected LAB MICROBIOLOGY METHOD 01/31/2025 7:39 PM EDT [facility] Bordetella parapertussis Not Detected Not Detected LAB MICROBIOLOGY METHOD 01/31/2025 7:39 PM EDT [facility] Mycoplasma pneumo by PCR Not Detected Not Detected LAB MICROBIOLOGY METHOD 01/31/2025 7:39 PM EDT [facility] Chlamydia pneumoniae Not Detected Not Detected LAB MICROBIOLOGY METHOD 01/31/2025 7:39 PM EDT [facility] SARS COV-2 Not Detected Not Detected LAB MICROBIOLOGY METHOD 01/31/2025 7:39 PM EDT [facility] Swab Both anterior nares / Unknown Non-blood Collection / Unknown 01/31/2025 6:38 PM EDT 01/31/2025 6:44 PM EDT Narrative [facility] - 01/31/2025 7:39 PM EDT Testing was performed using the Diagonal View Respiratory Pathogen PCR Assay. All results must [...] OR DERABLES Final Result Performing Organization Address City/[facility]/ZIP Co de Phone Number [facility] [address] [place] [address], [place] [phone] * Blood Culture, Peripheral Draw #1 (01/31/2025 6:38 PM EDT) Only the most recent of2 resultswithin the time period is included. Culture, Blood No growth at 5 days LAB MICROBIOLOGY METHOD 02/05/2025 7:01 PM EDT [facility] Blood Venous blood specimen / Unknown Venipuncture / Unknown 01/31/2025 6:38 PM EDT 01/31/2025 6:45 PM EDT Shawnee PEPE LAB MICROBIOLOGY - GENERAL OR DERABLES Final Result Performing Organization Address City/[facility]/ZIP Co de Phone Number [facility] [address] [place] [address], [place] [phone] * CT Abdomen Pelvis w Contrast (01/31/2025 [...] Garcia MD on 01/31/2025 18:10:[address] [place] [facility] [address] PROCEDURES Final Resul t * (ABNORMAL) Urinalysis with reflex microscopic and culture (01/31/2025 4:00 PM EDT) Specific Berry Urine 1.016 1.003 - 1.030 LAB URINALYSIS - AUTOMATED METHOD 01/31/2025 4:44 PM [facility] pH, Urine 6.0 5.0 - 8.0 pH LAB URINALYSIS - AUTOMATED METHOD 01/31/2025 4:44 PM [facility] Leukocytes, Urine Large(A) Negative LAB URINALYSIS - AUTOMATED METHOD 01/31/2025 4:44 PM [facility] Nitrite, Urine Positive(A) Negative LAB URINALYSIS - AUTOMATED METHOD 01/31/2025 4:44 PM [facility] Protein, Urine 100(A) <=Trace mg/dL LAB URINALYSIS - AUTOMATED METHOD 01/31/2025 4:44 PM [facility] Glucose, Urine 500(A) Negative mg/dL LAB URINALYSIS - AUTOMATED METHOD 01/31/2025 4:44 PM [facility] Ketones, Urine Negative Negative mg/dL LAB URINALYSIS - AUTOMATED METHOD 01/31/2025 4:44 PM EDT [facility] Urobilinogen , Urine 0.2 0.2 - 1.0 mg/dL LAB URINALYSIS - AUTOMATED METHOD 01/31/2025 4:44 PM EDT [facility] Bilirubin, Urine Negative Negative LAB URINALYSIS - AUTOMATED METHOD 01/31/2025 4:44 PM EDT [facility] Blood, Urine Moderate(A) Negative LAB URINALYSIS - AUTOMATED METHOD 01/31/2025 4:44 PM EDT [facility] RBC, Urine 58.2(H) 0 - 4 /HPF LAB [facility]YSIS - [facility] WBC, Urine >4,000(H) 0 - 4 /HPF LAB URINALYSIS - AUTOMATED METHOD [facility] Squamous Epithelial, Urine >100(H) 0 - 60 /LPF LAB URINALYSIS - AUTOMATED METHOD 01/31/2025 4:44 PM T [facility] Non-Squamous Epithelial, Urine Rare Transitional epithelial cells. /LPF LAB URINALYSIS - AUTOMATED METHOD 01/31/2025 4:44 PM [facility] Bacteria, Urine Few(A) Negative /HPF LAB URINALYSIS - AUTOMATED METHOD 01/31/2025 4:44 PM T [facility] Hyaline Casts, Urine 5.0(H) 0 - 3 /LPF LAB URINALYSIS - AUTOMATED METHOD 01/31/2025 4:44 PM [facility] Urine Urine specimen obtained by clean catch procedure / Unknown Non-blood Collection / Unknown 01/31/2025 4:00 PM EDT 01/31/2025 4:06 PM EDT us Xavier Hooper MD LAB URINE ORDERABLES Final Resu lt [facility] [address] [place] [address], [place] [phone] * [place] urine culture tube (01/31/2025 4:00 PM EDT) Extra Tube Hold for add-ons. 01/31/2025 6:01 PM EDT [facility] Comment:Auto resulted. Urine Urine specimen obtained by clean catch procedure / Unknown Non-blood Collection / Unknown 01/31/2025 4:00 PM EDT 01/31/2025 4:06 PM EDT Xavier Hooper MD LAB URINE ORDERABLES Final Resu lt [facility] [address] [place] [address], [place] [phone] * (ABNORMAL) Culture urine (01/31/2025 4:00 PM EDT) Culture, Urine >100,000 CFU/mL Escherichia coli(A) ALEXEY 02/02/2025 9:39 AM EDT [facility] Comment: This is an edited result. [...] Hooper MD LAB MICROBIOLOGY - GENERAL [facility] Final Result [facility] ([facility]) [facility] [address] [place] [address], [place] [phone] * XR Chest 2 Views (01/31/2025 2:12 [...] Signed Date: 01/31/2025 14:53 ET Workstation ID: [id number] Transcribed By: Self Edit Transcribed Date: 01/31/2025 [...] Signed Date: 01/31/2025 14:53 ET Workstation ID: [id number] Transcribed By: Self Edit Transcribed Date: 01/31/2025 14:53 ET [facility] XR PROCEDURES Final Resul t * (ABNORMAL) B-type natriuretic peptide (01/31/2025 1:38 PM EDT) BNP 629(H) <=100 pcg/mL LAB CHEMISTRY METHOD 01/31/2025 2:54 PM EDT [facility] Blood Venous blood specimen / Unknown Venipuncture / Unknown 01/31/2025 1:38 PM EDT 01/31/2025 2:04 PM EDT [facility] BLOOD ORDERABLES Final Re sult Performing Organization Address [facility]/ZIP Co de Phone Number [facility] [address] [place] [address], [place] [phone] * Ammonia (01/31/2025 1:15 PM EDT) Ammonia 27 11 - 35 mcmol/L LAB CHEMISTRY METHOD 01/31/2025 1:54 PM EDT [facility] Blood Venous blood specimen / Unknown Venipuncture / Unknown 01/31/2025 1:15 PM EDT 01/31/2025 1:23 PM EDT [facility] BLOOD ORDERABLES Final Re sult Performing Organization Address City/[facility]/ZIP Co de Phone Number [facility] [address] [place] [address], [place] [phone] * CT Cervical Spine wo Contrast (01/31/2025 [...] Signed Date: 01/31/2025 11:55 ET Workstation ID: [id number] Transcribed By: Self Edit Transcribed Date: 01/31/2025 [...] Signed Date: 01/31/2025 11:55 ET Workstation ID: [id number] Transcribed By: Self Edit Transcribed Date: 01/31/2025 [...] Signed Date: 01/31/2025 11:56 ET Workstation ID: [id number] Transcribed By: Self Edit Transcribed Date: 01/31/2025 [...] Signed Date: 01/31/2025 11:56 ET Workstation ID: [id number] Transcribed By: Self Edit Transcribed Date: 01/31/2025 11:55 ET Alejandro Begum DO IMG CT PROCEDURES Final Result * Thyroid stimulating hormone with reflex to free t4 and free t3 (TSH Reflex) (01/31/2025 11:11 AM EDT) TSH 2.80 0.40 - 4.00 mcIU/mL LAB CHEMISTRY METHOD 02/01/2025 4:53 PM EDT [facility] Blood Venous blood specimen / Unknown Venipuncture / Unknown 01/31/2025 11:11 AM EDT 01/31/2025 11:47 AM EDT us [facility] LAB BLOOD ORDERABLES Final Re sult Performing Organization Address [facility]/ZIP Co de Phone Number [facility] [address] [place] [address], * (ABNORMAL) Vitamin B12 and folate (01/31/2025 11:11 AM EDT) Pathologist [facility] Vitamin B-12 189(L) 250 - 900 pcg/mL LAB CHEMISTRY METHOD 01/31/2025 2:13 PM EDT [facility] Folate 5.1 2.8 - 17.0 ng/ml LAB CHEMISTRY METHOD 01/31/2025 2:13 PM EDT [facility] Blood Venous blood specimen / Unknown Venipuncture / Unknown 01/31/2025 11:11 AM EDT 01/31/2025 11:47 AM EDT [facility] BLOOD ORDERABLES Final Re sult Performing Organization Address [facility] Co de Phone Number [facility] [address] [place] [address], * (ABNORMAL) Procalcitonin (01/31/2025 11:11 AM EDT) [facility] Procalcitonin 0.23(H) <=0.16 ng/mL LAB CHEMISTRY METHOD 02/01/2025 8:34 AM EDT [facility] Blood Venous blood specimen / Unknown Venipuncture / Unknown 01/31/2025 11:11 AM EDT 01/31/2025 11:47 AM EDT Narrative [facility] - 02/01/2025 8:34 AM EDT Procalcitonin [...] BLOOD ORDERABLES Final Result Performing Organization Address [facility] Co de Phone Number [facility] [address] [place] [address], * Prolactin (01/31/2025 11:11 AM EDT) Prolactin 8.50 See Comment ng/mL LAB CHEMISTRY METHOD 01/31/2025 1:36 PM EDT [facility] Comment: Prolactin Reference Ranges (ng/mL) Non 2.2 - 30.3 8.1 - 347.6 Postmenopausal 0.7 - 31.5 Blood Venous blood specimen / Unknown Venipuncture / Unknown 01/31/2025 11:11 AM EDT 01/31/2025 11:47 AM EDT [facility] BLOOD ORDERABLES Final Re sult Performing Organization Address [facility]/ZIP Co de Phone Number [facility] [address] [place] [address], [place] [phone] * (ABNORMAL) C-reactive protein (01/31/2025 11:11 AM EDT) C-Reactive Protein 10.50(H) <=0.50 mg/dL LAB CHEMISTRY METHOD 01/31/2025 8:44 PM EDT [facility] Blood Venous blood specimen / Unknown Venipuncture / Unknown 01/31/2025 11:11 AM EDT 01/31/2025 11:47 AM EDT us Jay Castillo MD LAB BLOOD ORDERABLES Final Result Performing Organization Address [facility]/ZIP Co de Phone Number [facility] [address] [place] [address], [place] [phone] * (ABNORMAL) Hemoglobin A1c (01/31/2025 11:11 AM EDT) Hemoglobin A1C 9.7(H) <6.5 % LAB CHEMISTRY METHOD 01/31/2025 10:04 PM EDT [facility] Mean Bld Glu Estim. 232 mg/dL LAB CHEMISTRY METHOD 01/31/2025 10:04 PM EDT [facility] Blood Venous blood specimen / Unknown Venipuncture / Unknown 01/31/2025 11:11 AM EDT 01/31/2025 11:47 AM EDT us Jay Castillo MD LAB BLOOD ORDERABLES Final Result Performing Organization Address [facility]/ZIP Co de Phone Number [facility] [address] [place] [address], [place] [phone] * (ABNORMAL) CK total and CKMB (01/31/2025 11:11 AM EDT) Total CK 22 22 - 269 unit/L LAB CHEMISTRY METHOD 01/31/2025 12:35 PM EDT [facility] CK-MB <1.0(L) 1.0 - 3.6 ng/mL LAB CHEMISTRY METHOD 01/31/2025 12:35 PM EDT [facility] CK-MB Index <0.0(L) 0.0 - 5.0 LAB CHEMISTRY METHOD 01/31/2025 12:35 PM EDT [facility] Blood Venous blood specimen / Unknown Venipuncture / Unknown 01/31/2025 11:11 AM EDT 01/31/2025 11:47 AM EDT us Xavier Hooper MD LAB BLOOD ORDERABLES Final Resu lt [facility] [address] [place] [address], [place] [phone] * (ABNORMAL) Hepatic function panel (01/31/2025 11:11 AM EDT) Total Protein 5.9(L) 6.0 - 8.0 g/dL LAB CHEMISTRY METHOD 01/31/2025 2:38 PM EDT [facility] Albumin 2.2(L) 3.2 - 5.0 g/dL LAB CHEMISTRY METHOD 01/31/2025 2:38 PM EDT [facility] Total Bilirubin 0.5 0.0 - 1.4 mg/dL LAB CHEMISTRY METHOD 01/31/2025 2:38 PM EDT [facility] Bilirubin, Direct 0.1 0.0 - 0.3 mg/dL LAB CHEMISTRY METHOD 01/31/2025 2:38 PM EDT [facility] Bilirubin, Indirect 0.4 0.0 - 1.1 mg/dL LAB CHEMISTRY METHOD 01/31/2025 2:38 PM [facility] ALT (SGPT) 11 10 - 60 unit/L LAB CHEMISTRY METHOD 01/31/2025 2:38 PM [facility] AST (SGOT) 7(L) 10 - 42 unit/L LAB CHEMISTRY METHOD 01/31/2025 2:38 PM T [facility] Alkaline Phosphatase 98 42 - 121 unit/L LAB CHEMISTRY METHOD 01/31/2025 2:38 PM T [facility] Blood Venous blood specimen / Unknown Venipuncture / Unknown 01/31/2025 11:11 AM EDT 01/31/2025 11:47 AM EDT us [facility] BLOOD ORDERABLES Final Re sult [facility] [place] ([facility]) [facility] [address] [place] [address], [place] [phone] from Last 3 Months Insurance [place] - [place] MEDICARE Advance Directives Documents on File Type Date Recorded Patient Emergency Medicine Nurse Practitioner Expl anation Advance Directives and Living Will [...] Agents on File Name Relationship Healthcare Agent [facility] Communication Davian Silva [facility] Agent Care Teams Production Director Relationship Specialty Start Date End Date Physician, Pcp Unknown PCP - General 01/31/25
--- OUTSIDE RECORDS SUMMARY | 2025-04-24 15:47 | XMS_ITS | Clinical Summary ---
Author Organization [facility] Address [address] [place] [address] Care Team Providers Care Edge Finisher Name Role Phone Hayden Canchola MD Primary Care Provider Allergies No known active allergies Medications Medication [...] 69 07/20/2024 9:36 AM EDT Temperature 36.2 C (97.2 F) 07/20/2024 9:36 AM EDT Respiratory Rate - - Oxygen Saturation 96% 07/20/2024 9:36 AM EDT Inhaled Oxygen Concentration - - Weight 69.4 kg (153 lb) 07/20/2024 9:36 AM EDT Height 154.9 cm (5' 1 ) 07/20/2024 9:36 AM EDT Body Mass Index 28.91 07/20/2024 9:36 AM EDT Plan of Treatment Health Maintenance Due Date Last Done Comments COVID-19 Vaccine (#1) 1950 Pneumococcal Vaccine (1 of 2 - PCV) 1951 Depression Screening 1957 BMI Counseling 1963 Preventative Health Evaluation 1963 DTap / Tdap / Td (1 - Tdap) 1964 Shingrix-Zoster Vaccine (1 of 2) 1964 Fall Risk Assessment 2010 Osteoporosis Screening (DEXA Scan) 2010 RSV Adult > 60+ Yrs or Pregn ant (1 - 1-dose 75+ series) 2020 Influenza Vaccine (Season Ended) 2025 Hepatitis B Vaccines Aged Out No long er eligible based on patient's age to complete this topic RSV Ped < 20 months Aged Out No longe r eligible based on patient's age to complete this topic Care Teams Edge Finisher Relationship Specialty Start Date End Date Hayden Canchola MD [address] [place] [address] [address] [address] PCP - General Director Quality Systems 06/02/19
--- OUTSIDE RECORDS SUMMARY | 2025-04-24 15:47 | XMS_ITS | Clinical Summary ---
Author Organization [facility] Address [address] [place] [address] Phone Care Team Providers Care Cyber Security Consultant Name Role Phone Hayden Canchola MD Primary [...] age to complete this topic Insurance Medicaid [place] Medicare Care Teams Cyber Security Consultant Relationship Specialty Start Date End Date Hayden Canchola MD [address] [place] PCP - General Internal Medicine 06/11/21
[2025-04-24 15:52] LABS: Parathyroid Hormone Intact 118.6 pg/mL (8.7-77.1)
[2025-04-24 16:40] LABS: Microalbum/Creatinine Ratio Ur 15.9 ug/mg cr (<30)
== END 2025-04-24 14:51 | disposition home or self-care (01) ==
LOC: HO.LAB 14:50
PROVIDERS: PCP Internal Medicine; Visit Provider Internal Medicine Hypertension Specialist
DX: N18.30 Chronic kidney disease, stage 3 unspecified (principal); E11.9 Type 2 diabetes mellitus without complications
CPT/HCPCS: 36415; 80048; 81001; 82043; 82570; 83970; 85027

== ENCOUNTER → 2025-04-26 13:50 | Outpatient (BNVA) | payer MEDICARE, MEDICAID, SELFPAY | PROVIDERS: PCP Internal Medicine | DX: I13.0 Hypertensive heart and chronic kidney disease with heart failure and stage 1 through stage 4 chronic kidney disease, or unspecified chronic kidney disease (principal); E11.22 Type 2 diabetes mellitus with diabetic chronic kidney disease; N18.32 Chronic kidney disease, stage 3b; I50.20 Unspecified systolic (congestive) heart failure; N28.1 Cyst of kidney, acquired; Z85.118 Personal history of other malignant neoplasm of bronchus and lung; Z79.899 Other long term (current) drug therapy; Z92.21 Personal history of antineoplastic chemotherapy; Z92.3 Personal history of irradiation | CPT/HCPCS: 99212 ==

== ENCOUNTER 2025-04-26 14:06 | Outpatient (AMB) | payer MEDICARE, MEDICAID, SELFPAY ==
--- OUTSIDE RECORDS SUMMARY | 2025-04-26 14:11 | XMS_ITS | Patient Health Record ---
Author Organization [facility] Address [address] [place] [address] Care Team Providers Care Trestle Mechanic Name Role Phone Hayden Canchola MD Primary [...] Problem Status W/U Status Risk Notes Problem [id number] Abnormal PET scan of colon (R94.8) Active confirmed Plan Of Treatment Future Test Test Name Order Date COLONOSCOPY 06/06/2015 COLONOSCOPY 08/31/2019 Insurance Providers Payer Name Payer Address Payer Phone Subscriber Number Group Number Insured Name Patient Relationship to Insured Coverage Start Date Coverage End Date MEDICARE OF [place] [address] [place] [address] [id number] GISELE FRANCISCO Self - patient is the insured [facility] [address] [place] [phone] [id number] GISELE FRANCISCO Self - patient is the insured Medical (General) History Medical History History ICD Code colonoscopy 10/11/15, small tubular reyna krishna hypertension elevated Cholesterol coronary artery disease with history of NC, 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 Hope 03/2019
--- NOTE | 2025-04-26 14:16 | HO.NEPHOV ---
Vital Signs 04/26/25 14:18 Height 5 ft 1 in Weight 146 lb BMI 27.6 BP 80/50 L Blood Pressure Location Lt brachial Position Sitting Pulse 91 Pulse Source Pulse Oximeter Pulse Oximetry (%) 97 Oxygen Delivery Method Room Air Intake Visit Reasons: 4 MO FU-Conf Mattress Filling Machine Tender Required: No Accompanied by: Self / Same As Patient Allergies No Known Allergies (No Known Allergies*) Allergy (Verified 04/26/25 14:17) Medication List - Last Reconciled 04/26/25 by Matteo Rose MD aspirin 81 mg PO DAILY atorvastatin 40 mg PO DAILY 90 days blood sugar diagnostic (FreeStyle Lite Strips) Use to check fasting blood sugar every day blood-glucose meter (FreeStyle Ellis Lite kit) Use to check fasting blood sugar every day blood-glucose sensor ([employer] G7 Sensor device) As directed blood-glucose,lithopress operator,cont (Dexcom G7 Black Top Machine Operator) As directed empagliflozin (Jardiance) 25 mg PO DAILY famotidine 10 mg (1/2 x 20 mg) PO BID furosemide (Lasix) 20 mg PO DAILY PRN gabapentin 400 mg (4 x 100 mg) PO DAILY glipizide 5 mg PO BID 90 days isosorbide mononitrate ER 30 mg PO DAILY lancets (FreeStyle Lancets) Use to check fasting blood sugar every day metformin 500 mg PO DAILY metoprolol tartrate 12.5 mg (1/2 x 25 mg) PO BID 90 days nitroglycerin 0.4 mg sublingual Q5M PRN sacubitril-valsartan 24-26 mg (Entresto) 1 tab PO BID spironolactone 12.5 mg (1/2 x 25 mg) PO DAILY 90 days HPI Comments Details: Anjana is a pleasant elderly woman with a history of stage IIIB chronic kidney disease. Baseline creatinine is around 1.4-1.6 mg/dL. She has a history of diabetes mellitus 2009 and along with hypertension. Both have been under good control. Anjana has a history of stage III A T2 N2 lung adenocarcinoma diagnosed in March 2019. She has undergone left lingular segmentectomy and shivani dissection on 04/20/2019. She was started on adjuvant carboplatin/Alimta chemotherapy on 06/20/2019 and completed 4 cycles. She had mediastinal radiation in 2019 and completed in November of 2019. In July 2020 serum creatinine was 1.81 and as of February 2021 creatinine was 2.1 mg/dL. She also has a history of COPD which is under control. History of coronary disease and CHF. She is currently on Entresto. 01/01/25 Recently underwent brain surgery- Nov 2024;Feeling better ;No dizziness;Waiting for radiation therapy 04/26/25 Here for follow up regarding renal function. BP has been low Feels light headed [facility] Medical History Heart failure with reduced ejection fraction History of ST elevation myocardial infarction (STEMI) (~03/2013) On home O2 Personal history of nicotine dependence Malignant neoplasm of upper lobe of left lung (~2018) Tubular adenoma of colon COPD (chronic obstructive pulmonary disease) Exercise hypoxemia Emphysema lung DM2 (diabetes mellitus, type 2) HLD (hyperlipidemia) HTN (hypertension) PVD (peripheral vascular disease) CAD (coronary artery disease) Surgical History H/O brain surgery (~11/2024) History of cardiac cath (~03/2013) History of lung surgery (~03/2019) History of bronchoscopy (~03/2019) History of colonoscopy (~12/2019) Family History Mother No problems noted. Father No problems noted. Social History Housing: House Patient Tobacco Use Status: Former Tobacco user e-Cigarette/Vaping Use: Former Use service: No Current occupational status: retired Cognitive needs: Yes (walker) Hearing needs: No Vision needs: Yes (reading glasses) Physical Exam Vital Signs: Last Vital Signs Pulse 91 04/26/25 14:18 BP 80/50 L 04/26/25 14:18 Pulse Ox 97 04/26/25 14:18 Oxygen Delivery Method Room Air 04/26/25 14:18 BMI result Body Mass Index 27.6 Results Reviewed Nephrology Results: Hgb, (12.0-16.0) 11.3 g/dl L 04/24/25 WBC, (4.8-10.8) 6.7 X10*3/uL 04/24/25 Plt Count, (160-400) 244 X10*3/uL Δ 04/24/25 Sodium, (135-145) 144 mmol/L 04/24/25 Potassium, (3.3-5.1) 4.2 mmol/L 04/24/25 Chloride, (96-108) 115 mmol/L H 04/24/25 Carbon Dioxide, (22-29) 19 mmol/L L 04/24/25 BUN, (9-16) 26 mg/dL H 04/24/25 Creatinine, (0.5-1.4) 2.02 mg/dL H 04/24/25 Calcium, (8.4-10.2) 8.7 mg/dL 04/24/25 PTH Intact, (8.7-77.1) 118.6 pg/mL H 04/24/25 Urine Protein, (Neg-Trace) Trace mg/dL 04/24/25 Urine Creatinine 119.40 mg/dL 04/24/25 Renal US 08/14/21 Assessment & Plan Assessment & Plan (1) CKD (chronic kidney disease) stage 3, GFR 30-59 ml/min: Code(s): N18.30 - Chronic kidney disease, stage 3 unspecified Category: Medical Plan: . Elderly woman with chronic kidney disease stage IIIB in the setting of longstanding hypertension diabetes mellitus and lung cancer status post the chemotherapy with carboplatin. She does not have significant proteinuria. 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 There could be some age-related nephron loss as well. However she has received carboplatin in the last which could have led to tubular damage. renal function has improved creatinine is down to 1.24 from 1.6 to 1.7 Repeat Cr is up again to 2.04 - Due to hypoperfusion from LOW BP Stop spironolactone 12.5 mg QD and reassess Goal is to slow the progression of renal disease. Continue to avoid nephrotoxic agents. . (2) Heart failure with reduced ejection fraction: Code(s): I50.20 - Unspecified systolic (congestive) heart failure Category: Medical Plan: . Well compensated. Currently on Entresto. Encouraged to follow-up with Dr. Macias Stay on low-sodium diet. Continue with current dose of Lasix . (3) Renal cyst: Comment: . As of 2020, Prominent pyramids right kidney with an anechoic cyst. No echogenic stone or hydronephrosis. Bosniak type II complex cyst midpole left kidney. No echogenic stones or caliectasis. Code(s): N28.1 - Cyst of kidney, acquired Category: Medical Plan: . Cyst has been stable. She underwent repeat ultrasonogram in [facility] few months ago. . . Orders: Orders Basic Metabolic Panel 3 Months N18.30 - Chronic kidney disease, stage 3 unspecified Complete Blood Count no Diff 3 Months N18.30 - Chronic kidney disease, stage 3 unspecified Medications: On Hold spironolactone Hold Comment: Doctor's Order 12.5 mg (1/2 x 25 mg) PO DAILY 90 days 45 tabs 1RF Coding Level of Care Code Est Pt Level 4 (46356) Diagnoses CKD (chronic kidney disease) stage 3, GFR 30-59 ml/min N18.30 Heart failure with reduced ejection fraction I50.20 Renal cyst N28.1
[2025-04-26 14:18] VITALS: BP 80/50; PULSE 91; O2SAT 97; BMI 27.6
== END 2025-04-26 14:28 | disposition home or self-care (01) ==
LOC: HO.HKA 14:06
PROVIDERS: PCP Internal Medicine; Visit Provider Internal Medicine Hypertension Specialist
DX: N18.30 Chronic kidney disease, stage 3 unspecified (principal); I50.20 Unspecified systolic (congestive) heart failure; N28.1 Cyst of kidney, acquired
CPT/HCPCS: 99214

== ENCOUNTER 2025-08-28 09:15 | Outpatient (REF) | payer MEDICARE, MEDICAID, SELFPAY ==
[2025-08-28 09:57] LABS: Hematocrit 40.1 % (37.0-47.0); Hemoglobin 12.3 g/dl (12.0-16.0); Mean Corpuscular HGB Conc 30.7 g/dl (31.0-35.0); Mean Corpuscular Hemoglobin 30.7 pg (27.0-33.0); Mean Corpuscular Volume 100.0 fL (80.0-98.0); NRBC Abs Auto 0.000 X10*3/uL (0.0-0.012); NRBC Pct Auto 0.0 /100WBC (0.0-0.2); Platelet Count 292 X10*3/uL (160-400); Red Blood Count 4.01 X10*6/uL (4.20-5.50); White Blood Count 6.4 X10*3/uL (4.8-10.8)
--- OUTSIDE RECORDS SUMMARY | 2025-08-28 10:01 | XMS_ITS | Clinical Summary ---
Author Organization [facility] Address [address] [place] [phone] Phone Care Team Providers Care Real Estate Legal Assistant Name Role Phone Montana Portillo MD Primary Care Provider [phone] Allergies No known active allergies Medications aspirin 81 mg EC tablet Take 1 tablet (81 mg total) by mouth 1 (one) time each day. Active atorvastatin (LIPITOR) 40 mg tablet Take [...] by mouth daily. Active metoprolol tartrate (LOPRESSOR) 25 mg tablet Take 2 tablets (50 mg total) by mouth 2 (two) times a day. 5 02/08/20 26 Active furosemide (LASIX) 40 mg tablet Take 1 tablet (40 mg total) by mouth 2 (two) times daily morning and afternoon. 5 02/08/20 26 Active hydrALAZINE (APRESOLINE) 10 mg tablet Take 1 tablet (10 mg total) by mouth 2 (two) times a day. 5 Active famotidine (PEPCID) 20 mg tablet Take by mouth. Activ e empagliflozin (Jardiance) 25 mg tablet Take 1 tablet (25 mg total) by mouth 1 (one) time each day in the morning. Active metFORMIN (GLUCOPHAGE) 500 mg tablet Take 1 tablet (500 mg total) by mouth 2 (two) times a day with meals. Active sacubitriL-valsa rtan (Entresto) 24-26 mg per tablet Take 1 tablet by mouth 2 (two) times a day. Active Active Problems Problem Noted Date Diagnosed Date Syncope and collapse 01/31/2025 Metastasis to brain (CMS/HCC V24, CMS/HCC V28) 0 01/14/2025 Primary adenocarcinoma of up per lobe of left lung (CMS/HCC V24, CMS/HCC V28) 06/16/2019 Assessment & Plan (07/12/2025 2:24 PM EDT): Ms. Wallace is an 80-year-old female who had a left upper lobectomy in 2018 for stage IIIa pulmonary adenocarcinoma. She completed 4 cycles of adjuvant chemotherapy and completed mediastinal radiation. 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 The patient's most recent surveillance chest CT scan done June 2025 shows no new or worsening pulmonary nodule, or thoracic adenopathy, to suggest recurrence or new disease. She has some consolidative opacities in the left lung which are similar when compared to previous studies and might represent posttreatment scarring. She has overall decreased nodular opacities throughout the left upper lobe. Will continue with routine chest CT surveillance the next of which will be in 6 months, December 2025. Will plan on seeing the patient after this next scan. Will check in with her oncologist at that time to determine timing of her ongoing surveillance scans. Encounters Date Type Department Care Team Description 08/13/2025 10:00 AM EDT Office Visit [facility] Hematology Oncology [address] [place] [phone] Coleman Faye MD Metastasis to brain (CMS/HCC V24, CMS/HCC V28) (Primary Dx); Primary adenocarcinoma of upper lobe of left lung (CMS/HCC V24, CMS/HCC V28) 07/20/2025 12:15 PM EDT - 07/20/2025 11:59 PM EDT Hospital Encounter [facility] MRI [address] [place] [address] Metastasis to brain ([facility] V24, [facility] V28) Discharge Disposition: Home or Self Care 07/05/2025 10:45 AM EDT Office Visit Thoracic Surgery - [place] [address] [facility] [address] [place] [address] Eulalia Smalls PA History of lung cancer (Primary Dx); Primary adenocarcinoma of upper lobe of left lung (CMS/HCC V24, [facility]/HCC V28) 06/26/2025 12:23 PM EDT - 06/26/2025 11:59 PM EDT Hospital Encounter [facility] CT Scan [address] [place] [address] History of lung cancer; Multiple pulmonary nodules Discharge Disposition: Home or Self Care from Last 3 Months Surgical History Surgery Date Site/Laterality Comments CRANIOTOMY 12/03/2024 Right Suboccipital for tumor OTHER SURGICAL HISTORY 04/20/2019 Left Left Lingular segmentectomy Medical History Medical History Date Comments Cancer ([facility]/HCC V24, [facility] V28) 04/20/2019 left lingular Social History Tobacco Use Types Packs/Day Years Used Date Smoking Tobacco: Former Cigarettes Tobacco Cessation:Counseling Given: Not Answered Interpersonal Safety Answer Date Record ed Physical Abuse Unrecognized value 02/01/2025 Verbal Abuse Unrecognized value 02/01/2025 Comments Unknown Sex and Gender Information Value Date Recorded Sex Assigned at Female 01/31/2025 12:19 PM EDT Legal Sex Female 11:47 PM EST Gender Identity Female 01/31/2025 12:19 PM EDT Sexual Orientation Straight 01/31/2025 12 :19 PM EDT Obstetrics History Last Filed Vital Signs Vital Sign Reading Time Taken Comments Blood Pressure 150/62 08/13/2025 10:15 AM EDT Pulse 76 08/13/2025 10:15 AM EDT Temperature 35.8 C (96.4 F) 08/13/2025 10:15 AM EDT Respiratory Rate 16 07/05/2025 10:34 AM EDT Oxygen Saturation 95% 08/13/2025 10:15 AM EDT Inhaled Oxygen Concentration - - Weight 68 kg (150 lb) 08/13/2025 10:15 AM EDT Height 154.9 cm (5' 0.98 ) 07/05/2025 10:34 AM E DT Body Mass Index 28.36 07/05/2025 10:34 AM EDT Plan of Treatment Upcoming Encounters Date Type Department Care Team (Late st Contact Info) Description 11/12/2025 10:00 AM EST Office Visit [facility] Hematology Oncology [address] [place] [address] Coleman Faye MD [address] [place] [address] Health Maintenance Due Date Last Done Comments COVID-19 Vaccine (3 - Pfizer risk series) 04/30/2021 04/02/2021, 03/12/2021 Cholesterol Screening (Lipid Panel) 10/02/2022 Lung Cancer Screening (Low Dose CT) 10/02/2022 Medicare Annual Wellness Visit 10/02/2022 Osteoporosis Screening (Bone Density Screening) 10/02/2022 Social Influencers of Health Screening 10/02/2022 Depression Screening 10/25/2024 Influenza Vaccine (#1) 2025 , 07/01/2023, 08/05/2022, Additional history exists Falls Risk Assessment 02/07/2026 02/07/2025 Hypertension/CHF/CAD Annual BMP Blood Test 02/07/2026 02/07/2025, 02/06/2025, 02/05/2025, Additional history exists DTaP,Tdap,and Td Vaccines (2 - Td or Tdap) 01/21/2028 01/20/2018 Zoster Vaccines Completed 03/25/2018, 12/24, 06/25/2016 Pneumococcal Vaccine: 50+ Years Completed 08/12/2022, 01/28/2018, 12/01/2016 RSV Immunization Adult Patients Completed 07/01/2023 HIB Vaccines Aged Out No longer eligi [...] Procedure Name Priority Date/Time Associated Diagnosis Comments MR BRAIN WO AND W CONTRAST Routine 07/20/2025 1:04 PM EDT Metastasis to brain (CMS/HCC V24, CMS/HCC V28) CT CHEST WO CONTRAST Routine 06/26/2025 12:51 PM EDT History of lung cancer Multiple pulmonary nodules BASIC METABOLIC PANEL Routine 02/07/2025 6:07 AM EDT from Last 3 Months or Most Recently Relevant to Health Maintenance Results * MR Brain wo and w Contrast (07/20/2025 1:04 PM EDT) Anatomical Region Laterality Modality Head and Neck Magnetic Resonan ce 07/20/2025 1:45 PM EDT Impressions 07/20/2025 2:09 PM EDT Right occipital craniotomy with cerebellar resection cavity and interval resection of previously visualized right cerebellar mass. New small extra-axial enhancing nodule along the undersurface of the right tentorium suspicious for small metastatic deposit. No mass effect upon adjacent structures or other intracranial metastases. -------- FINAL REPORT -------- Dictated By: ANAIS LEON Dictated Date: 07/20/2025 13:45 ET Assigned Physician: ANAIS LEON Reviewed and Electronically Signed By: ANAIS LEON Signed Date: 07/20/2025 14:09 ET Workstation ID: [id number] Transcribed By: Self Edit Transcribed Date: 07/20/2025 13:45 ET Narrative 07/20/2025 2:09 PM EDT PROCEDURE: Brain MRI INDICATION: Brain metastases TECHNIQUE: Multiplanar, multisequence MRI of the brain without and with contrast. 15 mL Dotarem injected intravenously without complication from a 15 mL vial. COMPARISON: 12/04/2024 and 11/30/2024. FINDINGS: Right occipital craniotomy with underlying resection cavity. No residual or recurrent enhancing mass at the cerebellar resection cavity. There is a 4 x 5 mm enhancing extra-axial nodule along the undersurface of the right tentorium without mass effect upon adjacent structures (series 10 image 191 and series 1000 image 125), not seen previously. No other abnormal intracranial enhancement. No acute infarct or intracranial hemorrhage. Result mass effect upon the 4th ventricle. Ventricles are normal in size. No hydrocephalus. Moderate chronic small vessel ischemic changes seen throughout the supratentorial and pontine white matter. Major intracranial arterial flow voids are within normal limits. Major dural venous sinuses enhance normally with contrast. Scattered mucosal thickening throughout the sinuses. Mastoid air cells are clear. Bilateral lens implants. Skull base soft tissues are within normal limits. No marrow replacing lesions throughout the calvarium. Procedure Note Anais Leon MD - 07/20/2025 PROCEDURE: Brain MRI INDICATION: Brain metastases TECHNIQUE: Multiplanar, multisequence MRI of the brain without and withcontrast. 15 mL Dotarem injected intravenously without complication froma 15 mL vial. COMPARISON: 12/04/2024 and 11/30/2024. FINDINGS: Right occipital craniotomy with underlying resection cavity. No residualor recurrent enhancing mass at the cerebellar resection cavity. There is a4 x 5 mm enhancing extra-axial nodule along the undersurface of the righttentorium without mass effect upon adjacent structures (series 10 and series 1000 image 125), not seen previously. No other abnormal intracranial enhancement. No acute infarct or intracranial hemorrhage. Result mass effect upon the 4th ventricle. Ventricles are normal in size.No hydrocephalus. Moderate chronic small vessel ischemic changes seen throughout thesupratentorial and pontine white matter. Major intracranial arterial flow voids are within normal limits. Majordural venous sinuses enhance normally with contrast. Scattered mucosal thickening throughout the sinuses. Mastoid air cellsare clear. Bilateral lens implants. Skull base soft tissues are within normallimits. No marrow replacing lesions throughout the calvarium. IMPRESSION: Right occipital craniotomy with cerebellar resection cavity and intervalresection of previously visualized right cerebellar mass. New smallextra-axial enhancing nodule along the undersurface of the right tentoriumsuspicious for small metastatic deposit. No mass effect upon adjacentstructures or other intracranial metastases. -------- FINAL REPORT -------- Dictated By: ANAIS LEON Dictated Date: 07/20/2025 13:45 ET Assigned Physician: ANAIS LEON Reviewed and Electronically Signed By: ANAIS LEON Signed Date: 07/20/2025 14:09 ET Workstation ID: [id number] Transcribed By: Self Edit Transcribed Date: 07/20/2025 13:45 ET Coleman Faye MD IMG MRI PROCEDURES Final Re sult * CT Chest wo Contrast (06/26/2025 12:51 PM EDT) Anatomical Region Laterality Modality Body Computed Tomogra phy 07/03/2025 10:1 5 AM EDT Impressions 07/03/2025 10:41 AM EDT Stable posttreatment changes in the left lung with resolving inflammatory nodules in the left upper lobe. No recurrent or metastatic disease in the chest. -------- FINAL REPORT -------- Dictated By: ANAIS LEON Dictated Date: 07/03/2025 10:15 ET Assigned Physician: ANAIS LEON Reviewed and Electronically Signed By: ANAIS LEON Signed Date: 07/03/2025 10:41 ET Workstation ID: [id number] Transcribed By: Self Edit Transcribed Date: 07/03/2025 10:15 ET Narrative 07/03/2025 10:41 AM EDT PROCEDURE: Chest CT INDICATION: Lung cancer TECHNIQUE: Chest CT without contrast. Multi planar reformats were created and interpreted. The examination was performed utilizing dose reduction techniques. Total DLP 158 COMPARISON: 01/31/2025 FINDINGS: LUNGS/PLEURA: Central airways are patent. Postsurgical changes in the left lung are stable compared to prior. Consolidative opacities in the left upper and lower lobes medially with volume loss, bronchiectasis, and internal air bronchograms, similar compared to prior, likely posttreatment scarring. Decreased nodular opacities throughout the left upper lobe, likely inflammatory. No new or increasing pulmonary nodules. Chronic small left pleural effusion is similar compared to prior. No pneumothorax. Emphysema. MEDIASTINUM: Thyroid gland is normal. No mediastinal or hilar lymphadenopathy. Precarinal lymph node measures 9 mm short axis, decreased from prior. Esophagus is normal. Left atrial and ventricular dilation. Moderate coronary artery calcification. No pericardial effusion. CHEST WALL: No axillary lymphadenopathy or superficial hematoma. UPPER ABDOMEN:Atrophic left kidney. Left adrenal adenoma is unchanged. BONES: No suspicious lytic or blastic lesions. Scattered degenerative changes seen throughout the bones. Procedure Note Anais Leon MD - 07/03/2025 PROCEDURE: Chest CT INDICATION: Lung cancer TECHNIQUE: Chest CT without contrast. Multi planar reformats were createdand interpreted. The examination was performed utilizing dose reductiontechniques. Total DLP 158 COMPARISON: 01/31/2025 FINDINGS: LUNGS/PLEURA: Central airways are patent. Postsurgical changes in theleft lung are stable compared to prior. Consolidative opacities in theleft upper and lower lobes medially with volume loss, bronchiectasis, andinternal air bronchograms, similar compared to prior, likely posttreatmentscarring. Decreased nodular opacities throughout the left upper lobe,likely inflammatory. No new or increasing pulmonary nodules. Chronicsmall left pleural effusion is similar compared to prior. Nopneumothorax. Emphysema. MEDIASTINUM: Thyroid gland is normal. No mediastinal or hilarlymphadenopathy. Precarinal lymph node measures 9 mm short axis,decreased from prior. Esophagus is normal. Left atrial and ventriculardilation. Moderate coronary artery calcification. No pericardialeffusion. CHEST WALL: No axillary lymphadenopathy or superficial hematoma. UPPER ABDOMEN:Atrophic left kidney. Left adrenal adenoma is unchanged. BONES: No suspicious lytic or blastic lesions. Scattered degenerativechanges seen throughout the bones. IMPRESSION: Stable posttreatment changes in the left lung with resolving inflammatorynodules in the left upper lobe. No recurrent or metastatic disease in thechest. -------- FINAL REPORT -------- Dictated By: ANAIS LEON Dictated Date: 07/03/2025 10:15 ET Assigned Physician: ANAIS LEON Reviewed and Electronically Signed By: ANAIS LEON Signed Date: 07/03/2025 10:41 ET Workstation ID: [id number] Transcribed By: Self Edit Transcribed Date: 07/03/2025 10:15 ET E[address] PEPE IMG CT PROCEDURES Final Resul t * (ABNORMAL) Basic metabolic panel (02/07/2025 6:07 AM EDT) Sodium 138 133 - 145 mmol/L LAB CHEMISTRY METHOD 02/07/2025 7:39 AM [facility] Potassium 4.1 3.5 - 5.5 mmol/L LAB CHEMISTRY METHOD 02/07/2025 7:39 AM [facility] Chloride 105 96 - 110 mmol/L LAB CHEMISTRY METHOD 02/07/2025 7:39 AM [facility] CO2 22 21 - 32 mmol/L LAB CHEMISTRY METHOD 02/07/2025 7:39 AM [facility] Anion Gap 11 3 - 11 LAB CHEMISTRY METHOD 02/07/2025 7:39 AM [facility] Glucose 147(H) 70 - 100 mg/dL LAB CHEMISTRY METHOD 02/07/2025 7:39 AM [facility] BUN 25 5 - 25 mg/dL LAB CHEMISTRY METHOD 02/07/2025 7:39 AM [facility] Creatinine 1.61(H) 0.50 - 1.10 mg/dL LAB CHEMISTRY METHOD 02/07/2025 7:39 AM [facility] eGFR 32(L) >=60 mL/min/1. 73m2 LAB CHEMISTRY METHOD 02/07/2025 7:39 AM [facility] Comment:Calculation based on the Chronic Kidney Disease Epidemiology Collaboration (CKD-EPI) equation refit without adjustment for race. BUN/Creatinine Ratio 15.5 LAB CHEMISTRY METHOD 02/07/2025 7:39 AM [facility] Calcium 8.2(L) 8.5 - 10.5 mg/dL LAB CHEMISTRY METHOD 02/07/2025 7:39 AM EDT [facility] Blood Venous blood specimen / Unknown Venipuncture / Unknown 02/07/2025 6:07 AM EDT 02/07/2025 7:07 AM EDT us Ekta Chapin MD LAB BLOOD ORDERABLES Final Resul t [facility] [address] [place] [address], [place] [phone] from Last 3 Months or Most Recently Relevant to Health Maintenance Insurance MEDICAID - [place] MEDICARE Advance Directives Documents on File Type Date Recorded Patient Records Management Manager Expl anation Advance Directives and Living Will 02/07/2025 10:20 AM Davian Wallace Health Care Proxy Health Care Decision (hx) [...] DIRECTIVE Health Care Decision (hx) 09/08/2019 AD JURAEZ DIRECTIVE Health Care Decision (hx) 09/08/2019 AD [...] Agents on File Name Relationship Healthcare Agent [facility] Communication Davian Wallace [facility] Health Care Agent Care Teams Real Estate Legal Assistant Relationship Specialty Start Date End Date Montana Portillo MD [facility] [address] [place] [address] [address] [place] [address] PCP - General Internal Medicine 07/05/25
--- OUTSIDE RECORDS SUMMARY | 2025-08-28 10:01 | XMS_ITS | Patient Health Record ---
Author Organization [facility] Address [address] [place] [address] Care Team Providers Care Personalized Living Manager Name Role Phone Jesika (RETIRED) Hayden BULLOCK Primary Care Provide r Unavailable Tonny Avendano Jr Unavailable [phone] Coleman Faye Unavailable Unavailable Reason For Referral [...] 100 MG 1 tablet Orally Once a day; Duration: 30 day(s) Active Clopidogrel Bisulfate 75 MG 1 tablet Orally Once a day Active MiraLax (colon prep) 8.3 ounce ((238) grams mixed with Gatorade or Crystal Light orally begin at 5:00 p.m. the day before the procedure; Duration: 1 day 08/31/2019 Active Folic Acid Not-Takin g glipiZIDE XL 2.5 MG 1 tablet with breakfast Orally Once a day; Duration: 30 day(s) Active Nitroglycerin 0.4 MG 1 Sublingual prn Active Problems Problem Type SNOMED Code ICD Code Onset Dates Problem Status W/U Status Risk Notes Problem Abnormal PET scan of colon (R94.8) Active confirmed Plan Of Treatment Future Test Test Name Order Date COLONOSCOPY 06/06/2015 COLONOSCOPY 08/31/2019 Insurance Providers Payer Name Payer Address Payer Phone Subscriber Number Group Number Insured Name Patient Relationship to Insured Coverage Start Date Coverage End Date MEDICARE OF [place] [address] [place] [id number] GISELE FRANCISCO Self - patient is the insured MEDICAID OF [facility] [address] [place] [phone] [id number] GISELE FRANCISCO Self - patient is the insured Medical (General) History Medical History History ICD Code colonoscopy 10/11/15, small tubular reyna krishna hypertension elevated Cholesterol coronary artery disease with history of NE, 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 Hope 03/2019
--- OUTSIDE RECORDS SUMMARY | 2025-08-28 10:01 | XMS_ITS | Clinical Summary ---
Author Organization [facility] Address [address] [facility] [address] [place] [address] Phone Care Team Providers Care Electrophysiology Technician Name Role Phone Hayden Canchola MD Primary Care Provider Allergies No known active allergies Medications furosemide (LASIX) 20 MG tablet Take 20 mg by mouth 2 (two) times a week. Active dulaglutide (TRULICITY) 3 mg/0.5 mL subcutaneous injection Inject 3 mg under the skin every 7 days. Active glipiZIDE (GLUCOTROL) 10 MG tablet Take 10 mg by mouth 2 (two) times a day before meals. Active isosorbide mononitrate (IMDUR) 30 MG 24 hr tablet Take 30 mg by mouth daily. Active nitroglycerin (NITROSTAT) 0.[address] 0.3 mg under the tongue every 5 (five) minutes as needed for chest pain. Active atorvastatin (LIPITOR) 40 MG tablet Take 40 mg by mouth daily. Active sacubitriL-valsar frank (ENTRESTO) 24-26 mg per tablet Take 1 tablet by mouth 2 (two) times a day. Active gabapentin (NEURONTIN) 100 MG capsule Take 1 capsule (100 mg total) by mouth 2 (two) times a day AND 2 capsules (200 mg total) nightly at bedtime. 5 Active metoprolol tartrate (LOPRESSOR) 37.5 mg Tab tablet Take 1 tablet (37.5 mg total) by mouth every 6 (six) hours. 5 Active acetaminophen (TYLENOL) 325 mg tablet Take 2 tablets (650 mg total) by mouth every 6 (six) hours as needed for pain (specific location in comments). 02/13/202 5 Active famotidine (PEPCID) 10 MG tablet Take 1 tablet (10 mg total) by mouth 2 (two) times a day. Active insulin glargine 100 unit/mL (3 mL) InPn injection pen Inject 12 Units under the skin nightly at bedtime. Active insulin NPH (HUMULIN N,NOVOLIN N) 100 unit/mL (3 mL) InPn injection pen Inject 4 Units under the skin every morning. 5 Active insulin lispro (ADMELOG, HUMALOG) 100 unit/mL injection pen Inject 0-6 Units under the skin 4 (four) times a day with meals and nightly. Active insulin lispro (ADMELOG, HUMALOG) 100 unit/mL injection pen Inject 4 Units under the skin 3 (three) times a day with meals. 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 06/16/2019 Immunizations Immunization Administration Dates Next Due Influenza High-Dose Trivalen t Preservative Free IM 07/12/2018,06/22/2017,12/01/2016 Influenza Quadrivalent Adjuv anted Preservative Free IM 08/05/2022,08/27/2021 Influenza Quadrivalent MDCK Preservative Free IM 07/16/2020 Influenza Quadrivalent Preservative Free IM 04/2023 Influenza Trivalent Adjuvant ed Preservative free IM 08/15/2024,08/25/2019 Pneumococcal conjugate PCV13 12/01/2016 Pneumococcal polysaccharide PPSV23 01/28/2018 RSV Vaccine (bivalent) 07/01/2023 Tdap 01/20/2018 Zoster live 06/25/2016 Zoster recombinant 03/25/2018,01/20/2018 Social History Tobacco Use Types Packs/Day Years Used Date Smoking Tobacco: Never Assessed Education Answer Date Recorded Are you interested in more education? Not on dennis e 11/30/2024 Are you concerned about learning? Not on file 11/30/2024 No 11/30/2024 No 11/30/2024 Food Answer Date Recorded Within the past 6 months we worried whether our food would run out before we got money to buy more. Never True 11/30/2024 Within the past 6 months the food we bought just didn't last and we didn't have enough money to get more. Never True Residential Stability Answer Date Recor ded What is your housing situation today? I have yue gutierrez 11/30/2024 How many times have you move d in the past 12 months? Zero (I did not move) 11/30/2024 Paying for Meds Answer Date Recorded Do you have trouble paying for medicines? No 11/30/2024 Paying Utility Bills Answer Date Record ed Do you have trouble paying your heating or elect ricity bill? No 11/30/2024 Transportation Answer Date Recorded Has the lack of transportati on kept you from medical appointments or from getting medications? No 11/30/2024 Digital Access Answer Date Recorded No 11/30/2024 Yes 11/30/2024 Do you have reliable internet access at home? Ye s 11/30/2024 Do you have a device (e.g., phone, tablet, computer) with a working camera? Yes 11/30/2024 Intimate Partner Violence Answer Date R ecorded Are you denied basic needs s uch as food, clothing, or medical care? No 11/30/2024 In the past 12 months have y ou been in a relationship with a person who hurts, threatens, or tries to control you? No 11/30/2024 Are you denied basic needs s uch as food, clothing, or medical care? No 11/30/2024 In the past 12 months have y ou been in a relationship with a person who hurts, threatens, or tries to control you? No 11/30/2024 Comments No Sex and Gender Information Value Date Recorded Sex Assigned at Not on file Legal Sex Female 6:59 PM EST Gender Identity Not on file Sexual Orientation Not on file Last Filed Vital Signs Vital Sign Reading Time Taken Comments Blood Pressure 151/69 12/07/2024 3:39 PM EST Pulse 56 12/07/2024 3:39 PM EST Temperature 36.3 C (97.4 F) 12/07/2024 3:39 PM EST Respiratory Rate 20 12/07/2024 3:39 PM EST Oxygen Saturation 99% 12/07/2024 3:39 PM EST Inhaled Oxygen Concentration 100% 12/03/2024 1 1:33 AM EST Weight 68 kg (150 lb) 11/29/2024 11:00 PM EST Height 157.5 cm (5' 2 ) 11/29/2024 11:00 PM EST Body Mass Index 27.44 11/29/2024 11:00 PM EST Plan of Treatment Health Maintenance Due Date Last Done Comments BLOOD PRESSURE 1945 DEPRESSION SCREENING 1957 SMOKING Hx and SMOKELESS TOBACCO SCREENING 1958 OSTEOPOROSIS SCREENING INITIAL (ONE-TIME) 2010 DIABETIC EYE EXAM 12/08/2024 INFLUENZA VACCINE (#1) 2025 , 07/01/2023, 08/05/2022, Additional history exists HEMOGLOBIN A1C 06/06/2025 12/07/2024, 12/06/2024 COVID-19 VACCINE ( season) 2025 04/02/2021, 03/12/2021 Adult Td,Tdap Booster 01/21/2028 01/20/2018 PNEUMOCOCCAL VACCINES (50+ years) Completed 01/28/2018, 12/01/2016 ZOSTER VACCINES Completed 03/25/2018, 12/24, 06/25/2016 RSV VACCINE Completed 07/01/2023 HEPATITIS A VACCINES Aged Out No long er eligible based on patient's age to complete this topic HIB VACCINES Aged Out No longer eligi ble based on patient's age to complete this topic MENINGOCOCCAL VACCINES (ACWY) Aged Out No longer eligible based on patient's age to complete this topic MENINGOCOCCAL VACCINES (B) Aged Out N o longer eligible based on patient's age to complete this topic Medical Devices Implanted Type Area Relish Maker Device Identifier Shelf Expiration Date Model / Serial / Lot Screw Bone 1.5x4mm Ti Self Drilling Matrixneuro - [id number] Implanted:Qty: 6 on 12/03/2024 by Terell Lagos MD at [facility] STANDARD Right: Cranial [employer] [id number] 4.01 / / Graft Tissue 3x3in Duragen Plus Ultra Pure Collagen Regeneration Matrix Dural Pk/5ea - [id number] Implanted:Qty: 1 on 12/03/2024 by Terell Lagos MD at [facility] Right: Cranial [employer] YESENIA 07/24/2027 [id number] / / [id number] Matrix Synthecel [id number] 5 Dura Substitute - [id number] Implanted:Qty: 1 on 12/03/2024 by Terell Lagos MD at [facility] Right: Cranial [employer] 01/22/2027 [id number] 0.01S / / [id number] Bone Plate .3x12mm 2 Hole Cranial Matrixneuro Ti Straight [place] Space Ultra Low Profile Thick - [id number] Implanted:Qty: 3 on 12/03/2024 by Terell Lagos MD at [facility] Right: Cranial [employer] [id number] 2 / / Procedures Procedure Name Priority Date/Time Associated Diagnosis Comments HEMOGLOBIN A1C Routine 12/07/2024 7:05 AM EST from Last 3 Months or Most Recently Relevant to Health Maintenance Results * (ABNORMAL) Hemoglobin A1c (12/07/2024 7:05 AM EST) HEMOGLOBIN A1C 6.8(H) 4.2 - 5.6 % [facility] Comment: HbA1c levels 5.7-6.4% represent pre-diabetes, indicating impaired glucose control and an increased risk of developing diabetes. The diagnostic HbA1c level for diabetes is 6.5% or greater. HbA1c is performed by the Zohra Felisha-quant immunoassay method which does not detect (incidental) hemoglobin variants. Hemoglobin electrophoresis should be ordered in patients with suspected hemoglobinopathies. CALC MEAN BLD GLUC 150 mg/dL [facility] Comment:The Calculated Mean Blood Glucose (CMBG) represents the estimated average glucose calculated from the measured hemoglobin A1c (HbA1c). There is no established normal range for the CMBG, however a 5.6% HbA1c (upper limit of normal) represents a CMBG of 114 mg/dL. 12/07/2024 7:05 AM EST 12/07/2024 7:10 AM EST Comment:#A1C ADDED PER [id number] @1036 us Vasquez Frazier MD LAB BLOOD BKR ORDERA BLES Final Result [facility] [address] [place] [address] from Last 3 Months or Most Recently Relevant to Health Maintenance [place] B Advance Directives For more information, please contact: [phone] (9AM - 5PM [facility], Wednesday-Wednesday) Documents on File Type Date Recorded Patient Forest Fire Management Officer Expl anation Healthcare Proxy 11/30/2024 3:58 PM * Full Code (Latest Code Status on File) Date Activated Date Inactivated Comments 11/29/2024 11:34 PM Question Answer Comments Code Status Confirmed With: Patient Code Status Communicated To: Inpatient Attending Care Teams Electrophysiology Technician Relationship Specialty Start Date End Date Hayden Canchola MD [address] [place] [address] [place] [address] PCP - General Internal Medicine 11/29/24 Additional Source Comments The information contained in this document represents components of the legal health record. It is not the complete legal health record.[facility]
--- OUTSIDE RECORDS SUMMARY | 2025-08-28 10:01 | XMS_ITS | Encounter Summary ---
Author Organization [facility] Address [address] [place] [address] Phone Care Team Providers Care Well Tester Name Role Phone Hayden Canchola MD Primary Care Provider Encounter Details Date Type Department Care Team (Late st Contact Info) Description 12/03/2024 Procedure Pass [facility] [address] [place] [address] Social History Tobacco Use Types Packs/Day Years [...] your housing situation today? I have yue sing 11/30/2024 How many times have you move [...] as of this encounter Plan of Treatment Not on file documented as of this encounter Visit Diagnoses Not on filedocumented in this encounter Care Teams Well Tester Relationship Specialty Start Date End Date Hayden Canchola MD [address] [place] [address] [place] [address] PCP - General Internal Medicine 11/29/24 documented as of this encounter Additional Source Comments The information contained in this document represents components of the legal health record. It is not the complete legal health record.[facility]
--- OUTSIDE RECORDS SUMMARY | 2025-08-28 10:01 | XMS_ITS | Encounter Summary ---
Author Organization [facility] Address [address] [place] [address] Phone Care Team Providers Care Machine Heel Seat Laster Name Role Phone Hayden Canchola MD Primary Care Provider Encounter Details Date Type Department Care Team (Late st Contact Info) Description 12/03/2024 Procedure Pass [facility] Periop [address] [place] [address] Social History Tobacco Use Types Packs/Day Years Used Date Smoking Tobacco: Never Assessed Education Answer Date Recorded Are you interested in more education? Not on ednnis e 11/30/2024 Are you concerned about learning? [...] on filedocumented in this encounter Care Teams Machine Heel Seat Laster Relationship Specialty Start Date End Date Hayden Canchola MD [address] [place] [address] [place] [address] PCP - General Internal Medicine 11/29/24 documented as of this encounter Additional Source Comments The information contained in this document represents components of the legal health record. It is not the complete legal health record.[facility]
--- OUTSIDE RECORDS SUMMARY | 2025-08-28 10:01 | XMS_ITS | Clinical Summary ---
Author Organization [facility] Address [address] [place] [address] Phone Care Team Providers Care Delivery Room Clerk Name Role Phone Hayden Canchola MD Primary Care Provider [phone] Allergies No known active allergies Medications aspirin [...] Health Maintenance Due Date Last Done Comments Influenza Vaccine (#1) 2025 4, 07/01/2023, 08/05/2022, Additional history exists Pneumococcal Vaccine: 50+ Years Completed 01/28/2018, 12/01/2016 Hepatitis B Vaccine Aged Out No longe r eligible based on patient's age to complete this topic [place] Care Teams Delivery Room Clerk Relationship Specialty Start Date End Date Hayden Canchola MD [address] [place] [address] [address] [place], [place] PCP - General Internal Medicine 06/11/21
--- OUTSIDE RECORDS SUMMARY | 2025-08-28 10:01 | XMS_ITS | Encounter Summary ---
Author Organization [facility] Address [address] [place] [address] Phone Care Team Providers Care Solar Installation Technician Name Role Phone Hayden Canchola MD Primary Care Provider Encounter Details Date Type Department Care Team (Late st Contact Info) Description 12/04/2024 Procedure Pass [facility] [address] [place] [address] Social History Tobacco Use Types Packs/Day Years [...] on filedocumented in this encounter Care Teams Solar Installation Technician Relationship Specialty Start Date End Date Hayden Canchola MD [address] [place] [address] [place] [address] PCP - General Internal Medicine 11/29/24 documented as of this encounter Additional Source Comments The information contained in this document represents components of the legal health record. It is not the complete legal health record.[facility]
--- OUTSIDE RECORDS SUMMARY | 2025-08-28 10:01 | XMS_ITS | Encounter Summary ---
Author Organization [facility] Address [address] [place] [address] Phone Care Team Providers Care Clinical Safety Specialist Name Role Phone Hayden Canchola MD Primary Care Provider Encounter Details Date Type Department Care Team (Late st Contact Info) Description 12/03/2024 Procedure Pass [facility] [address] [place] [address] Social History Tobacco Use Types Packs/Day Years [...] on filedocumented in this encounter Care Teams Clinical Safety Specialist Relationship Specialty Start Date End Date Hayden Canchola MD [address] [place] [address] [place] [address] PCP - General Internal Medicine 11/29/24 documented as of this encounter Additional Source Comments The information contained in this document represents components of the legal health record. It is not the complete legal health record.[facility]
--- OUTSIDE RECORDS SUMMARY | 2025-08-28 10:01 | XMS_ITS | Clinical Summary ---
Author Organization [facility] Address [address] [place] [address] Care Team Providers Care Planting Supervisor Name Role Phone Hayden Canchola MD Primary Care Provider [phone] Allergies No known active allergies Medications Medication [...] 1-dose 75+ series) 2020 Influenza Vaccine (#1) 2025 Hepatitis B Vaccines Aged Out No long er eligible based on patient's age to complete this topic RSV Ped < 20 months Aged Out No longe r eligible based on patient's age to complete this topic Care Teams Planting Supervisor Relationship Specialty Start Date End Date Hayden Canchola MD [address] [place] [address] [address] [address] PCP - General Stock Holder 06/02/19
--- OUTSIDE RECORDS SUMMARY | 2025-08-28 10:01 | XMS_ITS | Encounter Summary ---
Author Organization [facility] Address [address] [place] [address] Care Team Providers Care Core Extruder Name Role Phone [place] Portillo MD Primary Care Provider [phone] Encounter Details Date Type Department Care Team (Late st Contact Info) Description 12/17/2024 Lab Requisition [facility] Main [facility] [address] [facility] [place] [address] Christopher Rutledge MD [address] [place] [address] Encounter for other general examination Social History [...] Description 11/12/2025 10:00 AM EST Office Visit [facility] Hematology Oncology [address] [place] [address] Coleman Faye MD [address] [place] [address] documented as of this encounter [...] K/mcL LAB HEMETOLOGY METHOD 12/17/2024 10:22 AM [facility] RBC 3.20(L) 3.80 - 4.80 M/mcL LAB HEMETOLOGY METHOD 12/17/2024 10:22 AM [facility] Hemoglobin 10.1(L) 11.5 - 16.0 g/dL LAB HEMETOLOGY METHOD 12/17/2024 10:22 AM [facility] Hematocrit 32.8(L) 35.0 - 47.0 % LAB HEMETOLOGY METHOD 12/17/2024 10:22 AM [facility] MCV 102.8(H) 79.0 - 98.0 FL LAB HEMETOLOGY METHOD 12/17/2024 10:22 AM [facility] MCH 31.7 27.0 - 32.0 pcg LAB HEMETOLOGY METHOD 12/17/2024 10:22 AM [facility] MCHC 30.8(L) 32.0 - 37.0 g/dL LAB HEMETOLOGY METHOD 12/17/2024 10:22 AM [facility] RDW 16.4(H) 11.0 - 15.0 % LAB HEMETOLOGY METHOD 12/17/2024 10:22 AM [facility] Platelets 177 130 - 400 K/mcL LAB HEMETOLOGY METHOD 12/17/2024 10:22 AM [facility] MPV 10.4 7.0 - 11.0 FL LAB HEMETOLOGY METHOD 12/17/2024 10:22 AM EST [facility] NRBC 0.0 <1.0 % LAB HEMETOLOGY METHOD 12/17/2024 10:22 AM EST [facility] NRBC Absolute 0.00 <0.10 K/mcL LAB HEMETOLOGY METHOD 12/17/2024 10:22 AM EST [facility] Blood Venous blood specimen / Unknown Venipuncture / Unknown 12/17/2024 5:42 AM EST 12/17/2024 9:08 AM EST us Christopher Rutledge MD LAB BLOOD ORDERABLES Final Res ult [facility] [address] [place] [address], [place] [phone] * (ABNORMAL) Basic metabolic panel (12/17/2024 5:42 AM EST) Sodium 139 133 - 145 mmol/L LAB CHEMISTRY METHOD 12/17/2024 10:17 AM [facility] Potassium 5.2 3.5 - 5.5 mmol/L LAB CHEMISTRY METHOD 12/17/2024 10:17 AM [facility] Chloride 110 96 - 110 mmol/L LAB CHEMISTRY METHOD 12/17/2024 10:17 AM [facility] CO2 26 21 - 32 mmol/L LAB CHEMISTRY METHOD 12/17/2024 10:17 AM [facility] Anion Gap 3 3 - 11 LAB CHEMISTRY METHOD 12/17/2024 10:17 AM [facility] Glucose 104(H) 70 - 100 mg/dL LAB CHEMISTRY METHOD 12/17/2024 10:17 AM [facility] BUN 38(H) 5 - 25 mg/dL LAB CHEMISTRY METHOD 12/17/2024 10:17 AM [facility] Creatinine 1.37(H) 0.50 - 1.10 mg/dL LAB CHEMISTRY METHOD 12/17/2024 10:17 AM [facility] eGFR 39(L) >=60 mL/min/1. 73m2 LAB CHEMISTRY METHOD 12/17/2024 10:17 AM [facility] Comment:Calculation based on the Chronic Kidney Disease Epidemiology Collaboration (CKD-EPI) equation refit without adjustment for race. BUN/Creatinine Ratio 27.7 LAB CHEMISTRY METHOD 12/17/2024 10:17 AM [facility] Calcium 7.8(L) 8.5 - 10.5 mg/dL LAB CHEMISTRY METHOD 12/17/2024 10:17 AM [facility] Blood Venous blood specimen / Unknown Venipuncture / Unknown 12/17/2024 5:42 AM EST 12/17/2024 9:08 AM EST us Christopher Rutledge MD LAB BLOOD ORDERABLES Final Res ult [facility] [address] [place] [address], documented in this encounter Visit Diagnoses Diagnosis Encounter for other general examination documented in this encounter Additional Health Concerns Infection Onset Date Last Indicated Resolved Time Respiratory Rule-Out 01/31/2025 01/31/2025 025 7:39 PM EDT COVID-19 Rule-Out 01/31/2025 01/31/2025 01/31/2025 7:39 PM EDT documented as of this encounter Care Teams Core Extruder Relationship Specialty Start Date End Date Montana Portillo MD [facility] [address] [place] [address] [address] [place] [address] PCP - General Internal Medicine 07/05/25 documented as of this encounter
--- OUTSIDE RECORDS SUMMARY | 2025-08-28 10:01 | XMS_ITS | Encounter Summary ---
Author Organization [facility] Address [address] [place] [address] Care Team Providers Care Fish Drier Name Role Phone Montana Portillo MD Primary Care Provider [phone] Encounter Details Date Type Department Care Team (Late st Contact Info) Description 12/08/2024 Lab Requisition [facility] - Main Lab [address] [facility] [place] [address] Christopher Rutledge MD [address] [place] [id number] Encounter for other general examination Social History [...] Description 11/12/2025 10:00 AM EST Office Visit [facility] Hematology Oncology [address] [place] [address] Coleman Faye MD [address] [place] [address] documented as of this encounter [...] K/mcL LAB HEMETOLOGY METHOD 12/08/2024 10:23 AM [facility] LAB RBC 3.60(L) 3.80 - 4.80 M/mcL LAB HEMETOLOGY METHOD 12/08/2024 10:23 AM [facility] LAB Hemoglobin 10.8(L) 11.5 - 16.0 g/dL LAB HEMETOLOGY METHOD 12/08/2024 10:23 AM [facility] LAB Hematocrit 34.0(L) 35.0 - 47.0 % LAB HEMETOLOGY METHOD 12/08/2024 10:23 AM [facility] LAB MCV 95.2 79.0 - 98.0 FL LAB HEMETOLOGY METHOD 12/08/2024 10:23 AM [facility] LAB MCH 30.3 27.0 - 32.0 pcg LAB HEMETOLOGY METHOD 12/08/2024 10:23 AM [facility] LAB MCHC 31.8(L) 32.0 - 37.0 g/dL LAB HEMETOLOGY METHOD 12/08/2024 10:23 AM [facility] RDW 14.6 11.0 - 15.0 % LAB HEMETOLOGY METHOD 12/08/2024 10:23 AM [facility] LAB Platelets 182 130 - 400 K/mcL LAB HEMETOLOGY METHOD 12/08/2024 10:23 AM [facility] LAB MPV 10.9 7.0 - 11.0 FL LAB HEMETOLOGY METHOD 12/08/2024 10:23 AM [facility] LAB NRBC 0.0 <1.0 % LAB HEMETOLOGY METHOD 12/08/2024 10:23 AM [facility] LAB NRBC Absolute 0.00 <0.10 K/mcL LAB HEMETOLOGY METHOD 12/08/2024 10:23 AM [facility] LAB Neutrophils Relative 83.0 % LAB HEMETOLOGY METHOD 12/08/2024 10:23 AM [facility] Lymphocytes Relative 7.1 % LAB HEMETOLOGY METHOD 12/08/2024 10:23 AM [facility] Monocytes Relative 7.5 % LAB HEMETOLOGY METHOD 12/08/2024 10:23 AM [facility] Eosinophils Relative 0.0 % LAB HEMETOLOGY METHOD 12/08/2024 10:23 AM [facility] Basophils Relative 0.4 % LAB HEMETOLOGY METHOD 12/08/2024 10:23 AM [facility] Immature Granulocytes Relative 2.0 % LAB HEMETOLOGY METHOD 12/08/2024 10:23 AM [facility] Neutrophils Absolute 6.98 1.50 - 7.00 K/mcL LAB HEMETOLOGY METHOD 12/08/2024 10:23 AM [facility] Lymphocytes Absolute 0.60(L) 1.00 - 5.00 K/mcL LAB HEMETOLOGY METHOD 12/08/2024 10:23 AM [facility] Monocytes Absolute 0.63 0.20 - 1.00 K/mcL LAB HEMETOLOGY METHOD 12/08/2024 10:23 AM [facility] LAB Eosinophils Absolute 0.00 0.00 - 0.50 K/[facility] LAB HEMETOLOGY METHOD 12/08/2024 10:23 AM EST [facility] LAB Basophils Absolute 0.03 0.00 - 0.20 K/[facility] LAB HEMETOLOGY METHOD 12/08/2024 10:23 AM EST [facility] Immature Granulocytes Absolute 0.17(H) 0.00 - 0.03 K/[facility] LAB HEMETOLOGY METHOD 12/08/2024 10:23 AM EST [facility] Blood Venous blood specimen / Unknown Venipuncture / Unknown 12/08/2024 7:14 AM EST 12/08/2024 9:29 AM EST Christopher Rutledge MD LAB BLOOD ORDERABLES Final Res ult Performing Organization Address [facility]/ZIP Co de Phone Number [facility] [address] [place] [address], [place] [phone] * Magnesium (12/08/2024 7:14 AM EST) Magnesium 2.3 1.9 - 2.6 mg/dL LAB CHEMISTRY METHOD 12/08/2024 10:46 AM EST [facility] Blood Venous blood specimen / Unknown Venipuncture / Unknown 12/08/2024 7:14 AM EST 12/08/2024 9:29 AM EST Christopher Rutledge MD LAB BLOOD ORDERABLES Final Res ult [facility] [address] [place] [address], [place] [phone] * (ABNORMAL) Comprehensive metabolic panel (12/08/2024 7:14 AM EST) Sodium 139 133 - 145 mmol/L LAB CHEMISTRY METHOD 12/08/2024 10:48 AM EST [facility] Potassium 4.0 3.5 - 5.5 mmol/L LAB CHEMISTRY METHOD 12/08/2024 10:48 AM [facility] Chloride 108 96 - 110 mmol/L LAB CHEMISTRY METHOD 12/08/2024 10:48 AM [facility] CO2 24 21 - 32 mmol/L LAB CHEMISTRY METHOD 12/08/2024 10:48 AM [facility] Anion Gap 7 3 - 11 LAB CHEMISTRY METHOD 12/08/2024 10:48 AM [facility] Glucose 153(H) 70 - 100 mg/dL LAB CHEMISTRY METHOD 12/08/2024 10:48 AM [facility] BUN 39(H) 5 - 25 mg/dL LAB CHEMISTRY METHOD 12/08/2024 10:48 AM [facility] Creatinine 1.25(H) 0.50 - 1.10 mg/dL LAB CHEMISTRY METHOD 12/08/2024 10:48 AM [facility] eGFR 44(L) >=60 mL/min/1. 73m2 LAB CHEMISTRY METHOD 12/08/2024 10:48 AM [facility] Comment:Calculation based on the Chronic Kidney Disease Epidemiology Collaboration (CKD-EPI) equation refit without adjustment for race. BUN/Creatinine Ratio 31.2 LAB CHEMISTRY METHOD 12/08/2024 10:48 AM [facility] Calcium 7.8(L) 8.5 - 10.5 mg/dL LAB CHEMISTRY METHOD 12/08/2024 10:48 AM [facility] AST (SGOT) 17 10 - 42 unit/L LAB CHEMISTRY METHOD 12/08/2024 10:48 AM [facility] ALT (SGPT) 22 10 - 60 unit/L LAB CHEMISTRY METHOD 12/08/2024 10:48 AM [facility] Alkaline Phosphatase 89 42 - 121 unit/L LAB CHEMISTRY METHOD 12/08/2024 10:48 AM [facility] Total Protein 5.0(L) 6.0 - 8.0 g/dL LAB CHEMISTRY METHOD 12/08/2024 10:48 AM EST [facility] Albumin 2.1(L) 3.2 - 5.0 g/dL LAB CHEMISTRY METHOD 12/08/2024 10:48 AM EST [facility] Total Bilirubin 0.3 0.0 - 1.4 mg/dL LAB CHEMISTRY METHOD 12/08/2024 10:48 AM EST [facility] Blood Venous blood specimen / Unknown Venipuncture / Unknown 12/08/2024 7:14 AM EST 12/08/2024 9:29 AM EST us Christopher Rutledge MD LAB BLOOD ORDERABLES Final Res ult [facility] [address] [place] [address], documented in this encounter Visit Diagnoses Diagnosis Encounter for other general examination documented in this encounter Additional Health Concerns Infection Onset Date Last Indicated Resolved Time Respiratory Rule-Out 01/31/2025 01/31/2025 025 7:39 PM EDT COVID-19 Rule-Out 01/31/2025 01/31/2025 01/31/2025 7:39 PM EDT documented as of this encounter Care Teams Fish Drier Relationship Specialty Start Date End Date Montana Portillo MD [address] [place] [address] PCP - General Internal Medicine 07/05/25 documented as of this encounter
--- OUTSIDE RECORDS SUMMARY | 2025-08-28 10:02 | XMS_ITS | Encounter Summary ---
Author Organization [facility] Address [address] [place] [address] Phone Care Team Providers Care Acquisition Manager Name Role Phone Hayden Canchola MD Primary Care Provider Encounter Details Date Type Department Care Team ([facility] st Contact Info) Description 11/30/2024 Procedure Pass [facility] Echocardiography [address] [place] [address] Social History Tobacco Use Types Packs/Day Years [...] your housing situation today? I have yue matt 11/30/2024 How many times have you move [...] have reliable internet access at home? Ye costa 11/30/2024 Do you have a device (e.g., [...] tries to control you? No 11/30/2024 Comments Unknown Sex and Gender Information Value Date Recorded Sex Assigned at Not on file Legal Sex Female 6:59 PM EST Gender Identity Not on file Sexual Orientation Not on file documented as of this encounter Functional Status * Calculated C-SSRS Risk Score (Lifetime/Recent) Answer Date of Assessment Author No Risk Indicated 11/30/2024 12:00 AM Emir Hernandez RN * [place] Suicide Severity Rating Scale (Screener/Recent Self-Report) Question Answer Date of Assessment Author 1. Wish to be (Past 1 Month) No 025 12:00 AM Emir Hernandez RN 2. Non-Specific Active Suici sharona Thoughts (Past 1 Month) No 11/30/2024 12:00 AM Tyrone Hernandez RN 6. Suicidal Behavior (Lifetime) No 12:00 AM Emir Hernandez RN documented as of this encounter Plan of Treatment Not on file documented as of this encounter Visit Diagnoses Not on filedocumented in this encounter Care Teams Acquisition Manager Relationship Specialty Start Date End Date Hayden Canchola MD [address] [place] [address] [place] [address] PCP - General Internal Medicine 11/29/24 documented as of this encounter Additional Source Comments The information contained in this document represents components of the legal health record. It is not the complete legal health record.[facility]
--- OUTSIDE RECORDS SUMMARY | 2025-08-28 10:02 | XMS_ITS | Encounter Summary ---
Author Organization [facility] Address [address] [place] [address] Phone Care Team Providers Care Recreation Engineer Name Role Phone Hayden Canchola MD Primary Care Provider Encounter Details Date Type Department Care Team (Late st Contact Info) Description 11/30/2024 Procedure Pass [facility] [address] [place] [address] Social History Tobacco Use Types Packs/Day Years [...] 11/30/2024 12:00 AM Emir Hernandez RN * [place] Suicide Severity Rating Scale (Screener/Recent Self-Report) Question [...] on filedocumented in this encounter Care Teams Recreation Engineer Relationship Specialty Start Date End Date Hayden Canchola MD [address] [place] [address] [place] [address] PCP - General Internal Medicine 11/29/24 documented as of this encounter Additional Source Comments The information contained in this document represents components of the legal health record. It is not the complete legal health record.[facility]
--- OUTSIDE RECORDS SUMMARY | 2025-08-28 10:02 | XMS_ITS | Encounter Summary ---
Author Organization [facility] Address [address] [place] [address] Phone Care Team Providers Care Ceramic Chemist Name Role Phone Hayden Canchola MD Primary Care Provider Encounter Details Date Type Department Care Team ([facility] st Contact Info) Description 12/06/2024 Procedure Pass [facility] [address] [place] [address] Social History Tobacco Use Types Packs/Day Years [...] on filedocumented in this encounter Care Teams Ceramic Chemist Relationship Specialty Start Date End Date Hayden Canchola MD [address] [place] [address] [place] [address] PCP - General Internal Medicine 11/29/24 documented as of this encounter Additional Source Comments The information contained in this document represents components of the legal health record. It is not the complete legal health record.[facility]
--- OUTSIDE RECORDS SUMMARY | 2025-08-28 10:02 | XMS_ITS | Encounter Summary ---
Author Organization [facility] Address [address] [place] [address] Phone Care Team Providers Care Correctional Security Officer Name Role Phone Hayden Canchola MD Primary Care Provider Encounter Details Date Type Department Care Team ([facility] st Contact Info) Description 12/04/2024 Procedure Pass [facility] [address] [place] [address] Social History Tobacco Use Types Packs/Day Years [...] on filedocumented in this encounter Care Teams Correctional Security Officer Relationship Specialty Start Date End Date Hayden Canchola MD [address] [place] [address] [place] [address] PCP - General Internal Medicine 11/29/24 documented as of this encounter Additional Source Comments The information contained in this document represents components of the legal health record. It is not the complete legal health record.[facility]
--- OUTSIDE RECORDS SUMMARY | 2025-08-28 10:02 | XMS_ITS | Encounter Summary ---
Author Organization [facility] Address [address] [place] [address] Phone Care Team Providers Care Human Resources Benefits Manager Name Role Phone Hayden Canchola MD Primary Care Provider Encounter Details Date Type Department Care Team ([facility] st Contact Info) Description 12/04/2024 Procedure Pass [facility] [address] [place] [address] Social History Tobacco Use Types Packs/Day Years [...] on filedocumented in this encounter Care Teams Human Resources Benefits Manager Relationship Specialty Start Date End Date Hayden Canchola MD [address] [place] [address] [place] [address] PCP - General Internal Medicine 11/29/24 documented as of this encounter Additional Source Comments The information contained in this document represents components of the legal health record. It is not the complete legal health record.[facility]
[2025-08-28 10:53] LABS: Anion Gap 14 (12-20); Blood Urea Nitrogen 21 mg/dL (9-16); Calcium 8.9 mg/dL (8.4-10.2); Carbon Dioxide 24 mmol/L (22-29); Chloride 109 mmol/L (96-108); Estimated Glomerular Filt Rate 27; Potassium 4.5 mmol/L (3.3-5.1); Sodium 142 mmol/L (135-145)
== END 2025-08-28 09:16 | disposition home or self-care (01) ==
LOC: HO.10HDL 09:15
PROVIDERS: Visit Provider Internal Medicine Hypertension Specialist
DX: N18.30 Chronic kidney disease, stage 3 unspecified (principal)
CPT/HCPCS: 36415; 80048; 85027

== ENCOUNTER 2025-08-30 13:43 | Outpatient (AMB) | payer MEDICARE, MEDICAID, SELFPAY ==
--- NOTE | 2025-08-30 13:44 | HO.NEPHOV ---
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 Baseline creatinine is around 1.4-1.6 mg/dL. She has a history of diabetes mellitus 2009 and along with hypertension. Both have been under good control. Anjana has a history of stage III A T2 N2 lung adenocarcinoma diagnosed in March 2019. She has undergone left lingular segmentectomy and shivani dissection on 04/20/2019. She was started on adjuvant carboplatin/Alimta chemotherapy on 06/20/2019 and completed 4 cycles. She had mediastinal radiation in 2019 and completed in November of 2019. In July 2020 serum creatinine was 1.81 and as of February 2021 creatinine was 2.1 mg/dL. She also has a history of COPD which is under control. History of coronary disease and CHF. She is currently on Entresto. 01/01/25 Recently underwent brain surgery- Nov 2024;Feeling better ;No dizziness;Waiting for radiation therapy 04/26/25 Here for follow up regarding renal function. BP has been low ;Feels light headed 08/30/25 The patient is an 80-year-old female presenting with chronic kidney disease, diabetes mellitus, hypertension, and lung cancer. The chronic kidney disease is stable with low kidney function, but it is holding steady as per the latest evaluation. The patient is advised to maintain hydration and continue current medications, with a follow-up planned in four months to reassess kidney function.. The patient has a history of lung cancer, which was surgically treated in [place] around September or October. Dr. Faye is currently overseeing her follow-up care, and the condition is considered stable at this time. [facility] Medical History Heart failure with reduced ejection fraction History of ST elevation myocardial infarction (STEMI) (~03/2013) On home O2 Personal history of nicotine dependence Malignant neoplasm of upper lobe of left lung (~2018) Tubular adenoma of colon COPD (chronic obstructive pulmonary disease) Exercise hypoxemia Emphysema lung DM2 (diabetes mellitus, type 2) HLD (hyperlipidemia) HTN (hypertension) PVD (peripheral vascular disease) CAD (coronary artery disease) Surgical History H/O brain surgery (~11/2024) History of cardiac cath (~03/2013) History of lung surgery (~03/2019) History of bronchoscopy (~03/2019) History of colonoscopy (~12/2019) Family History Mother No problems noted. Father No problems noted. Social History Housing: House Patient Tobacco Use Status: Former Tobacco user e-Cigarette/Vaping Use: Former Use service: No Current occupational status: retired Cognitive needs: Yes (walker) Hearing needs: No Vision needs: Yes (reading glasses) Physical Exam Vital Signs: Last Vital Signs Pulse 86 08/30/25 13:45 BP 130/66 08/30/25 13:53 Pulse Ox 100 08/30/25 13:45 Oxygen Delivery Method Room Air 08/30/25 13:45 BMI result Body Mass Index 28.7 Comfortable Neck supple no JVD. Lungs entry equal no rales. Heart S1-S2 heard no gallop or rub. Abdomen soft nontender. Neuro alert awake oriented. No asterixis. Extremities no edema. Neck Neck: Yes supple Resp Auscultation: clear to auscultation bilaterally Cardio Palpation: no palpable S3 Heart sounds: no rubs GI Palpation (GI): Soft to palpation Auscultation: normal bowel sounds Neuro Motor exam (neuro): no asterixis Results Reviewed Nephrology Results: Hgb, (12.0-16.0) 12.3 g/dl 08/28/25 WBC, (4.8-10.8) 6.4 X10*3/uL 08/28/25 Plt Count, (160-400) 292 X10*3/uL 08/28/25 Sodium, (135-145) 142 mmol/L 08/28/25 Potassium, (3.3-5.1) 4.5 mmol/L 08/28/25 Chloride, (96-108) 109 mmol/L H 08/28/25 Carbon Dioxide, (22-29) 24 mmol/L 08/28/25 BUN, (9-16) 21 mg/dL H 08/28/25 Creatinine, (0.5-1.4) 1.82 mg/dL H 08/28/25 Calcium, (8.4-10.2) 8.9 mg/dL 08/28/25 PTH Intact, (8.7-77.1) 118.6 pg/mL H 04/24/25 Urine Protein, (Neg-Trace) Trace mg/dL 04/24/25 Urine Creatinine 119.40 mg/dL 04/24/25 Renal US 08/14/21 Assessment & Plan Assessment & Plan (1) CKD (chronic kidney disease) stage 3, GFR 30-59 ml/min: Code(s): N18.30 - Chronic kidney disease, stage 3 unspecified Category: Medical Plan: . Elderly woman with chronic kidney disease stage IIIB in the setting of longstanding hypertension diabetes mellitus and lung cancer status post the chemotherapy with carboplatin. She does not have significant proteinuria. 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 There could be some age-related nephron loss as well. However she has received carboplatin in the last which could have led to tubular damage. renal function has improved creatinine is down to 1.24 from 1.6 to 1.7 Repeat Cr was up again to 2.04 - Due to hypoperfusion from LOW BP Stopped spironolactone 12.5 mg QD and cr is down to 1.8 Goal is to slow the progression of renal disease. Continue to avoid nephrotoxic agents. . (2) Heart failure with reduced ejection fraction: Code(s): I50.20 - Unspecified systolic (congestive) heart failure Category: Medical Plan: . Well compensated. Currently on Entresto. Encouraged to follow-up with Dr. Macias Stay on low-sodium diet. Continue with current dose of Lasix . (3) Renal cyst: Comment: . As of 2020, Prominent pyramids right kidney with an anechoic cyst. No echogenic stone or hydronephrosis. Bosniak type II complex cyst midpole left kidney. No echogenic stones or caliectasis. Code(s): N28.1 - Cyst of kidney, acquired Category: Medical Plan: . Cyst has been stable. She underwent repeat ultrasonogram in [facility] few months ago. . . Orders: Orders Basic Metabolic Panel 4 Months N18.30 - Chronic kidney disease, stage 3 unspecified Coding Level of Care Code Est Pt Level 4 (57818) Diagnoses CKD (chronic kidney disease) stage 3, GFR 30-59 ml/min N18.30 Heart failure with reduced ejection fraction I50.20 Renal cyst N28.1
[2025-08-30 13:45] VITALS: BP 158/74; PULSE 86; O2SAT 100; BMI 28.7
[2025-08-30 13:53] VITALS: BP 130/66
--- OUTSIDE RECORDS SUMMARY | 2025-08-30 16:43 | XMS_ITS | Clinical Summary ---
Author Organization [facility] Address [address] [place] [phone] Phone Care Team Providers Care Visual C Developer Name Role Phone Montana Portillo MD Primary Care Provider +1- [phone] Allergies No known active allergies Medications aspirin [...] & Plan (07/12/2025 2:24 PM EDT): Ms. Wallaec is an 80-year-old female who had a [...] Description 08/13/2025 10:00 AM EDT Office Visit [facility] Hematology Oncology [address] [place] [address] Coleman Faye MD Metastasis to brain (CMS/HCC V24, CMS/HCC V28) (Primary Dx); Primary adenocarcinoma of upper lobe of left lung (CMS/HCC V24, CMS/HCC V28) 07/20/2025 12:15 PM EDT - 07/20/2025 11:59 PM EDT Hospital Encounter [facility] MRI [address] [place] [address] Metastasis to brain ([facility] V24, [facility] V28) Discharge Disposition: Home or Self Care 07/05/2025 10:45 AM EDT Office Visit Thoracic Surgery - [place] [address] [facility] [address] [place] [address] Eulalia Smalls PA History of lung cancer (Primary Dx); Primary adenocarcinoma of upper lobe of left lung (CMS/HCC V24, [facility]/HCC V28) 06/26/2025 12:23 PM EDT - 06/26/2025 11:59 PM EDT Hospital Encounter [facility] CT Scan [address] [place] [address] History of lung cancer; Multiple pulmonary nodules Discharge Disposition: Home or Self Care from Last 3 Months Surgical History Surgery Date Site/Laterality Comments CRANIOTOMY 12/03/2024 Right Suboccipital for tumor OTHER SURGICAL HISTORY 04/20/2019 Left Left Lingular segmentectomy Medical History Medical History Date Comments Cancer ([facility]/HCC V24, [facility] V28) 04/20/2019 left lingular Social History Tobacco [...] Description 11/12/2025 10:00 AM EST Office Visit [facility] Hematology Oncology [address] [place] [address] Coleman Faye MD [address] [place] [address] Health Maintenance Due Date Last [...] Signed Date: 07/20/2025 14:09 ET Workstation ID: [id number] Transcribed By: Self Edit Transcribed Date: 07/20/2025 [...] Signed Date: 07/20/2025 14:09 ET Workstation ID: [id number] Transcribed By: Self Edit Transcribed Date: 07/20/2025 [...] Signed Date: 07/03/2025 10:41 ET Workstation ID: [id number] Transcribed By: Self Edit Transcribed Date: 07/03/2025 [...] Signed Date: 07/03/2025 10:41 ET Workstation ID: [id number] Transcribed By: Self Edit Transcribed Date: 07/03/2025 10:15 ET Eulalia PEPE IMG CT PROCEDURES Final Resul t * (ABNORMAL) Basic metabolic panel (02/07/2025 6:07 AM EDT) Sodium 138 133 - 145 mmol/L LAB CHEMISTRY METHOD 02/07/2025 7:39 AM [facility] Potassium 4.1 3.5 - 5.5 mmol/L LAB CHEMISTRY METHOD 02/07/2025 7:39 AM [facility] Chloride 105 96 - 110 mmol/L LAB CHEMISTRY METHOD 02/07/2025 7:39 AM [facility] CO2 22 21 - 32 mmol/L LAB CHEMISTRY METHOD 02/07/2025 7:39 AM [facility] Anion Gap 11 3 - 11 LAB CHEMISTRY METHOD 02/07/2025 7:39 AM [facility] Glucose 147(H) 70 - 100 mg/dL LAB CHEMISTRY METHOD 02/07/2025 7:39 AM [facility] BUN 25 5 - 25 mg/dL LAB CHEMISTRY METHOD 02/07/2025 7:39 AM [facility] Creatinine 1.61(H) 0.50 - 1.10 mg/dL LAB CHEMISTRY METHOD 02/07/2025 7:39 AM [facility] eGFR 32(L) >=60 mL/min/1. 73m2 LAB CHEMISTRY METHOD 02/07/2025 7:39 AM [facility] Comment:Calculation based on the Chronic Kidney Disease Epidemiology Collaboration (CKD-EPI) equation refit without adjustment for race. BUN/Creatinine Ratio 15.5 LAB CHEMISTRY METHOD 02/07/2025 7:39 AM [facility] Calcium 8.2(L) 8.5 - 10.5 mg/dL LAB CHEMISTRY METHOD 02/07/2025 7:39 AM EDT [facility] Blood Venous blood specimen / Unknown Venipuncture / Unknown 02/07/2025 6:07 AM EDT 02/07/2025 7:07 AM EDT us Ekta Chapin MD LAB BLOOD ORDERABLES Final Resul t [facility] [address] [place] [address], [place] [phone] from Last 3 Months or Most Recently Relevant to Health Maintenance Insurance MEDICAID - [place] MEDICARE Advance Directives Documents on File Type Date Recorded 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
--- OUTSIDE RECORDS SUMMARY | 2025-08-30 16:43 | XMS_ITS | Encounter Summary ---
Author Organization [facility] Address [address] [place] [address] Care Team Providers Care Sign Language Translator Name Role Phone Montana Portillo MD Primary Care Provider +1- [phone] Encounter Details Date Type Department Care Team (Late st Contact Info) Description 12/08/2024 Lab Requisition [facility] - Main Lab [address] [facility] [place] [address] Christopher Rutledge MD [address] [place] [address] Encounter for other general examination Social History [...] Description 11/12/2025 10:00 AM EST Office Visit [facility] Hematology Oncology [address] [place] [address] Coleman Faye MD [address] [place] [address] documented as of this encounter [...] 12/08/2024 10:23 AM [facility] Immature Granulocytes Relative 2.0 % LAB HEMETOLOGY METHOD 12/08/2024 10:23 AM [facility] Neutrophils Absolute 6.98 1.50 - 7.00 K/mcL LAB HEMETOLOGY METHOD 12/08/2024 10:23 AM [facility] Lymphocytes Absolute 0.60(L) 1.00 - 5.00 K/mcL LAB HEMETOLOGY METHOD 12/08/2024 10:23 AM [facility] Monocytes Absolute 0.63 0.20 - 1.00 K/mcL LAB HEMETOLOGY METHOD 12/08/2024 10:23 AM [facility] Eosinophils Absolute 0.00 0.00 - 0.50 K/[facility] LAB HEMETOLOGY METHOD 12/08/2024 10:23 AM EST [facility] Basophils Absolute 0.03 0.00 - 0.20 K/[facility] LAB HEMETOLOGY METHOD 12/08/2024 10:23 AM EST [facility] Immature Granulocytes Absolute 0.17(H) 0.00 - 0.03 K/[facility] LAB HEMETOLOGY METHOD 12/08/2024 10:23 AM EST [facility] Blood Venous blood specimen / Unknown Venipuncture / Unknown 12/08/2024 7:14 AM EST 12/08/2024 9:29 AM EST Christopher Rutledge MD LAB BLOOD ORDERABLES Final Res ult Performing Organization Address [facility]/ZIP Co de Phone Number [facility] [address] [place] [address], [place] [phone] * Magnesium (12/08/2024 7:14 AM EST) Magnesium 2.3 1.9 - 2.6 mg/dL LAB CHEMISTRY METHOD 12/08/2024 10:46 AM EST [facility] Blood Venous blood specimen / Unknown Venipuncture / Unknown 12/08/2024 7:14 AM EST 12/08/2024 9:29 AM EST Christopher Rutledge MD LAB BLOOD ORDERABLES Final Res ult [facility] [address] [place] [address], [place] [phone] * (ABNORMAL) Comprehensive metabolic panel (12/08/2024 7:14 AM EST) Sodium 139 133 - 145 mmol/L LAB CHEMISTRY METHOD 12/08/2024 10:48 AM EST [facility] Potassium 4.0 3.5 - [...] LAB CHEMISTRY METHOD 12/08/2024 10:48 AM EST [facility] Albumin 2.1(L) 3.2 - 5.0 g/dL LAB CHEMISTRY METHOD 12/08/2024 10:48 AM EST [facility] Total Bilirubin 0.3 0.0 - 1.4 mg/dL LAB CHEMISTRY METHOD 12/08/2024 10:48 AM EST [facility] Blood Venous blood specimen / Unknown Venipuncture / Unknown 12/08/2024 7:14 AM EST 12/08/2024 9:29 AM EST us Christopher Rutledge MD LAB BLOOD ORDERABLES Final Res ult [facility] [address] [place] [address], documented in this encounter Visit Diagnoses Diagnosis Encounter for other general examination documented in this encounter Additional Health Concerns Infection Onset Date Last Indicated Resolved Time Respiratory Rule-Out 01/31/2025 01/31/2025 025 7:39 PM EDT COVID-19 Rule-Out 01/31/2025 01/31/2025 01/31/2025 7:39 PM EDT documented as of this encounter Care Teams Sign Language Translator Relationship Specialty Start Date End Date Montana Portillo MD [address] [place] [address] PCP - General Internal Medicine 07/05/25 documented as of this encounter
--- OUTSIDE RECORDS SUMMARY | 2025-08-30 16:43 | XMS_ITS | Encounter Summary ---
Author Organization [facility] Address [address] [place] [address] Care Team Providers Care Event Marketing Representative Name Role Phone Montana Portillo MD Primary Care Provider +1- [phone] Encounter Details Date Type Department Care Team (Late st Contact Info) Description 12/17/2024 Lab Requisition [facility] - Main Lab [address] [facility] [place] [place] [address] Christopher Rutledge MD [address] [place] [address] Encounter for other general examination Social History [...] Description 11/12/2025 10:00 AM EST Office Visit [facility] Hematology Oncology [address] [place] [address] Coleman Faye MD [address] [place] [address] documented as of this encounter [...] K/mcL LAB HEMETOLOGY METHOD 12/17/2024 10:22 AM [facility] RBC 3.20(L) 3.80 - 4.80 M/mcL LAB HEMETOLOGY METHOD 12/17/2024 10:22 AM [facility] Hemoglobin 10.1(L) 11.5 - 16.0 g/dL LAB HEMETOLOGY METHOD 12/17/2024 10:22 AM [facility] Hematocrit 32.8(L) 35.0 - 47.0 % LAB HEMETOLOGY METHOD 12/17/2024 10:22 AM [facility] MCV 102.8(H) 79.0 - 98.0 FL LAB HEMETOLOGY METHOD 12/17/2024 10:22 AM [facility] MCH 31.7 27.0 - 32.0 pcg LAB HEMETOLOGY METHOD 12/17/2024 10:22 AM [facility] MCHC 30.8(L) 32.0 - 37.0 g/dL LAB HEMETOLOGY METHOD 12/17/2024 10:22 AM [facility] RDW 16.4(H) 11.0 - 15.0 % LAB HEMETOLOGY METHOD 12/17/2024 10:22 AM [facility] Platelets 177 130 - 400 K/mcL LAB HEMETOLOGY METHOD 12/17/2024 10:22 AM [facility] MPV 10.4 7.0 - 11.0 FL LAB HEMETOLOGY METHOD 12/17/2024 10:22 AM EST [facility] NRBC 0.0 <1.0 % LAB HEMETOLOGY METHOD 12/17/2024 10:22 AM EST [facility] NRBC Absolute 0.00 <0.10 K/mcL LAB HEMETOLOGY METHOD 12/17/2024 10:22 AM EST [facility] Blood Venous blood specimen / Unknown Venipuncture / Unknown 12/17/2024 5:42 AM EST 12/17/2024 9:08 AM EST us Christopher Rutledge MD LAB BLOOD ORDERABLES Final Res ult [facility] [address] [place] [address], [place] [phone] * (ABNORMAL) Basic metabolic panel (12/17/2024 5:42 AM EST) Sodium 139 133 - 145 mmol/L LAB CHEMISTRY METHOD 12/17/2024 10:17 AM [facility] Potassium 5.2 3.5 - 5.5 mmol/L LAB CHEMISTRY METHOD 12/17/2024 10:17 AM [facility] Chloride 110 96 - 110 mmol/L LAB CHEMISTRY METHOD 12/17/2024 10:17 AM [facility] CO2 26 21 - 32 mmol/L LAB CHEMISTRY METHOD 12/17/2024 10:17 AM [facility] Anion Gap 3 3 - 11 LAB CHEMISTRY METHOD 12/17/2024 10:17 AM [facility] Glucose 104(H) 70 - 100 mg/dL LAB CHEMISTRY METHOD 12/17/2024 10:17 AM [facility] BUN 38(H) 5 - 25 mg/dL LAB CHEMISTRY METHOD 12/17/2024 10:17 AM [facility] Creatinine 1.37(H) 0.50 - 1.10 mg/dL LAB CHEMISTRY METHOD 12/17/2024 10:17 AM [facility] eGFR 39(L) >=60 mL/min/1. 73m2 LAB CHEMISTRY METHOD 12/17/2024 10:17 AM [facility] Comment:Calculation based on the Chronic Kidney Disease Epidemiology Collaboration (CKD-EPI) equation refit without adjustment for race. BUN/Creatinine Ratio 27.7 LAB CHEMISTRY METHOD 12/17/2024 10:17 AM [facility] Calcium 7.8(L) 8.5 - 10.5 mg/dL LAB CHEMISTRY METHOD 12/17/2024 10:17 AM [facility] Blood Venous blood specimen / Unknown Venipuncture / Unknown 12/17/2024 5:42 AM EST 12/17/2024 9:08 AM EST us Christopher Rutledge MD LAB BLOOD ORDERABLES Final Res ult [facility] [address] [place] [address], documented in this encounter Visit Diagnoses Diagnosis Encounter for other general examination documented in this encounter Additional Health Concerns Infection Onset Date Last Indicated Resolved Time Respiratory Rule-Out 01/31/2025 01/31/2025 025 7:39 PM EDT COVID-19 Rule-Out 01/31/2025 01/31/2025 01/31/2025 7:39 PM EDT documented as of this encounter Care Teams Event Marketing Representative Relationship Specialty Start Date End Date Montana Portillo MD [facility] [address] [place] [address] [address] [place] [address] PCP - General Internal Medicine 07/05/25 documented as of this encounter
--- OUTSIDE RECORDS SUMMARY | 2025-08-30 16:43 | XMS_ITS | Encounter Summary ---
Author Organization [facility] Address [address] [place] [address] Phone Care Team Providers Care Incident Manager Name Role Phone Hayden Canchola MD Primary Care Provider Encounter Details Date Type Department Care Team ([facility] st Contact Info) Description 11/30/2024 Procedure Pass [facility] Echocardiography [address] [place] [address] Social History Tobacco Use Types Packs/Day Years [...] 11/30/2024 12:00 AM Emir Hernandez RN * [place] Suicide Severity Rating Scale (Screener/Recent Self-Report) Question [...] on filedocumented in this encounter Care Teams Incident Manager Relationship Specialty Start Date End Date Hayden Canchola MD [address] [place] [address] [place] [address] PCP - General Internal Medicine 11/29/24 documented as of this encounter Additional Source Comments The information contained in this document represents components of the legal health record. It is not the complete legal health record.[facility]
--- OUTSIDE RECORDS SUMMARY | 2025-08-30 16:43 | XMS_ITS | Encounter Summary ---
Author Organization [facility] Address [address] [place] [address] Phone Care Team Providers Care Licensing Officer Name Role Phone Hayden Canchola MD Primary Care Provider Encounter Details Date Type Department Care Team (Late st Contact Info) Description 11/30/2024 Procedure Pass [facility] [address] [place] [address] Social History Tobacco Use Types Packs/Day Years [...] 11/30/2024 12:00 AM Emir Hernandez RN * [place] Suicide Severity Rating Scale (Screener/Recent Self-Report) Question [...] on filedocumented in this encounter Care Teams Licensing Officer Relationship Specialty Start Date End Date Hayden Canchola MD [address] [place] [address] [place] [address] PCP - General Internal Medicine 11/29/24 documented as of this encounter Additional Source Comments The information contained in this document represents components of the legal health record. It is not the complete legal health record.[facility]
--- OUTSIDE RECORDS SUMMARY | 2025-08-30 16:43 | XMS_ITS | Patient Health Record ---
Author Organization [facility] Address [address] [place] [address] Care Team Providers Care Balance Truer Name Role Phone Jesika (RETIRED) Hayden BULLOCK Primary Care Provide r Unavailable Tonny Avendano Jr Unavailable Coleman Faye Unavailable Unavailable Reason [...] Start Date Coverage End Date [place] [address] [place] [address] [id number] GISELE FRANCISCO Self - patient is the insured MEDICAID OF [facility] [address] [place] [id number] GISELE FRANCISCO Self - patient is the insured Medical (General) History Medical History History ICD Code colonoscopy 10/11/15, small tubular reyna krishna hypertension elevated Cholesterol coronary artery disease with history of ME, 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 Hope 03/2019
--- OUTSIDE RECORDS SUMMARY | 2025-08-30 16:43 | XMS_ITS | Encounter Summary ---
Author Organization [facility] Address [address] [place] [address] Phone Care Team Providers Care Music Adapter Name Role Phone Hayden Canchola MD Primary Care Provider Encounter Details Date Type Department Care Team ([facility] st Contact Info) Description 12/04/2024 Procedure Pass [facility] [address] [place] [address] Social History Tobacco Use Types Packs/Day Years [...] on filedocumented in this encounter Care Teams Music Adapter Relationship Specialty Start Date End Date Hayden Canchola MD [address] [place] [address] [place] [address] PCP - General Internal Medicine 11/29/24 documented as of this encounter Additional Source Comments The information contained in this document represents components of the legal health record. It is not the complete legal health record.[facility]
--- OUTSIDE RECORDS SUMMARY | 2025-08-30 16:43 | XMS_ITS | Encounter Summary ---
Author Organization [facility] Address [address] [place] [address] Phone Care Team Providers Care Maintenance Foreman Name Role Phone Hayden Canchola MD Primary Care Provider Encounter Details Date Type Department Care Team (Late st Contact Info) Description 12/04/2024 Procedure Pass [facility] [address] [place] [address] Social History Tobacco Use Types Packs/Day Years [...] on filedocumented in this encounter Care Teams Maintenance Foreman Relationship Specialty Start Date End Date Hayden Canchola MD [address] [place] [address] [place] [address] PCP - General Internal Medicine 11/29/24 documented as of this encounter Additional Source Comments The information contained in this document represents components of the legal health record. It is not the complete legal health record.[facility]
--- OUTSIDE RECORDS SUMMARY | 2025-08-30 16:43 | XMS_ITS | Encounter Summary ---
Author Organization [facility] Address [address] [place] [address] Phone Care Team Providers Care Shop Tech Name Role Phone Hayden Canchola MD Primary Care Provider Encounter Details Date Type Department Care Team (Late st Contact Info) Description 12/03/[address] [facility] [address] [place] [address] Social History Tobacco Use Types Packs/Day Years [...] on filedocumented in this encounter Care Teams Shop Tech Relationship Specialty Start Date End Date Hayden Canchola MD [address] [place] [address] [place] [address] PCP - General Internal Medicine 11/29/24 documented as of this encounter Additional Source Comments The information contained in this document represents components of the legal health record. It is not the complete legal health record.[facility]
--- OUTSIDE RECORDS SUMMARY | 2025-08-30 16:43 | XMS_ITS | Encounter Summary ---
Author Organization [facility] Address [address] [place] [address] Phone Care Team Providers Care Explosives Worker Name Role Phone Hayden Canchola MD Primary Care Provider Encounter Details Date Type Department Care Team ([facility] st Contact Info) Description 12/06/2024 Procedure Pass [facility] [address] [place] [address] Social History Tobacco Use Types Packs/Day Years [...] on filedocumented in this encounter Care Teams Explosives Worker Relationship Specialty Start Date End Date Hayden Canchola MD [address] [place] [address] [place] [address] PCP - General Internal Medicine 11/29/24 documented as of this encounter Additional Source Comments The information contained in this document represents components of the legal health record. It is not the complete legal health record.[facility]
--- OUTSIDE RECORDS SUMMARY | 2025-08-30 16:43 | XMS_ITS | Clinical Summary ---
Author Organization [facility] Address [address] [place] [address] Care Team Providers Care Fabricator Assembler Metal Products Name Role Phone Hayden Canchola MD Primary Care Provider [phone] Allergies No known active allergies Medications Medication [...] age to complete this topic Care Teams Fabricator Assembler Metal Products Relationship Specialty Start Date End Date Hayden Canchola MD [address] [place] [address] [address] [place] [address] PCP - General Airfield Manager 06/02/19
--- OUTSIDE RECORDS SUMMARY | 2025-08-30 16:43 | XMS_ITS | Encounter Summary ---
Author Organization [facility] Address [address] [place] [address] Phone Care Team Providers Care Camp Coordinator Name Role Phone Hayden Canchola MD Primary Care Provider Encounter Details Date Type Department Care Team (Late st Contact Info) Description 12/03/2024 Procedure Pass [facility] Periop [address] [place] [address] Social History Tobacco Use Types Packs/Day Years [...] on filedocumented in this encounter Care Teams Camp Coordinator Relationship Specialty Start Date End Date Hayden Canchola MD [address] [place] [address] [place] [address] PCP - General Internal Medicine 11/29/24 documented as of this encounter Additional Source Comments The information contained in this document represents components of the legal health record. It is not the complete legal health record.[facility]
--- OUTSIDE RECORDS SUMMARY | 2025-08-30 16:43 | XMS_ITS | Encounter Summary ---
Author Organization [facility] Address [address] [place] [address] Phone Care Team Providers Care Plate Glass Installer Helper Name Role Phone Hayden Canchola MD Primary Care Provider Encounter Details Date Type Department Care Team ([facility] st Contact Info) Description 12/04/2024 Procedure Pass [facility] [address] [place] [address] Social History Tobacco Use Types Packs/Day Years [...] on filedocumented in this encounter Care Teams Plate Glass Installer Helper Relationship Specialty Start Date End Date Hayden Canchola MD [address] [place] [address] [place] [address] PCP - General Internal Medicine 11/29/24 documented as of this encounter Additional Source Comments The information contained in this document represents components of the legal health record. It is not the complete legal health record.[facility]
--- OUTSIDE RECORDS SUMMARY | 2025-08-30 16:43 | XMS_ITS | Encounter Summary ---
Author Organization [facility] Address [address] [place] [address] Phone Care Team Providers Care Learning Development Specialist Name Role Phone Hayden Canchola MD Primary Care Provider Encounter Details Date Type Department Care Team (Late st Contact Info) Description 12/03/2024 Procedure Pass [facility] [address] [place] [address] Social History Tobacco Use Types Packs/Day Years [...] on filedocumented in this encounter Care Teams Learning Development Specialist Relationship Specialty Start Date End Date Hayden Canchola MD [address] [place] [address] [place] [address] PCP - General Internal Medicine 11/29/24 documented as of this encounter Additional Source Comments The information contained in this document represents components of the legal health record. It is not the complete legal health record.[facility]
--- OUTSIDE RECORDS SUMMARY | 2025-08-30 16:43 | XMS_ITS | Clinical Summary ---
Author Organization [facility] Address [address] [place] [address] Phone Care Team Providers Care Pond Worker Name Role Phone Hayden Canchola MD [...] this topic Medical Devices Implanted Type Area Exerciser Device Identifier Shelf Expiration Date Model / Serial / Lot Screw Bone 1.5x4mm Ti Self Drilling Matrixneuro - [id number] Implanted:Qty: 6 on 12/03/2024 by Terell Lagos MD at [facility] STANDARD Right: Cranial [employer] [id number] 4.01 / / Graft Tissue 3x3in Duragen Plus Ultra Pure Collagen Regeneration Matrix Dural Pk/5ea - [id number] Implanted:Qty: 1 on 12/03/2024 by Terell Lagos MD at [facility] Right: Cranial [employer] YESENIA 07/24/2027 [id number] / / [id number] Matrix Synthecel [id number] 4 5 Dura Substitute - [id number] Implanted:Qty: 1 on 12/03/2024 by Terell Lagos MD at [facility] Right: Cranial [employer] 01/22/2027 [id number] 0.01S / / [id number] Bone Plate .3x12mm 2 Hole Cranial Matrixneuro Ti Straight [place] Space Ultra Low Profile Thick - [id number] Implanted:Qty: 3 on 12/03/2024 by Terell Lagos MD at [facility] Right: Cranial [employer] 04.502.06 2 / / Procedures Procedure Name Priority Date/Time Associated Diagnosis Comments HEMOGLOBIN A1C Routine 12/07/2024 7:05 AM EST from Last 3 Months or Most Recently Relevant to Health Maintenance Results * (ABNORMAL) Hemoglobin A1c (12/07/2024 7:05 AM EST) HEMOGLOBIN A1C 6.8(H) 4.2 - 5.6 % [facility] Comment: HbA1c levels 5.7-6.4% represent pre-diabetes, indicating impaired glucose control and an increased risk of developing diabetes. The diagnostic HbA1c level for diabetes is 6.5% or greater. HbA1c is performed by the Zohra Felisha-quant immunoassay method which does not detect (incidental) hemoglobin variants. Hemoglobin electrophoresis should be ordered in patients with suspected hemoglobinopathies. CALC MEAN BLD GLUC 150 mg/dL [facility] Comment:The Calculated Mean Blood Glucose [...] LAB BLOOD BKR ORDERA BLES Final Result [facility] [address] [place] [address] from Last 3 Months or Most Recently Relevant to Health Maintenance [place] B Advance Directives For more information, please contact: [phone] (9AM - 5PM [facility], Wednesday-Wednesday) Documents on File Type Date Recorded Patient Merchandising Manager Expl anation Healthcare Proxy 11/30/2024 3:58 PM * Full Code (Latest Code Status on File) Date Activated Date Inactivated Comments 11/29/2024 11:34 PM Question Answer Comments Code Status Confirmed With: Patient Code Status Communicated To: Inpatient Attending Care Teams Pond Worker Relationship Specialty Start Date End Date Hayden Canchola MD [address] [place] [address] [place] [address] PCP - General Internal Medicine 11/29/24 Additional Source Comments The information contained in this document represents components of the legal health record. It is not the complete legal health record.[facility]
--- OUTSIDE RECORDS SUMMARY | 2025-08-30 16:43 | XMS_ITS | Clinical Summary ---
Author Organization [facility] Address [address] [place] [address] Phone Care Team Providers Care Modern And Contemporary Art Curator Name Role Phone Hayden Canchola MD Primary Care Provider [phone] Allergies No known active allergies Medications aspirin [...] age to complete this topic Insurance Medicaid ID Medicare Medicaid ID Medicare Care Teams Modern And Contemporary Art Curator Relationship Specialty Start Date End Date Hayden Canchola MD [address] [place] [address] DRIVE [address] [place], [place] PCP - General Internal Medicine 06/11/21
== END 2025-08-30 13:56 | disposition home or self-care (01) ==
LOC: HO.HKA 13:44
PROVIDERS: PCP Internal Medicine; Visit Provider Internal Medicine Hypertension Specialist
DX: N18.30 Chronic kidney disease, stage 3 unspecified (principal); I50.20 Unspecified systolic (congestive) heart failure; N28.1 Cyst of kidney, acquired
CPT/HCPCS: 99214

== ENCOUNTER → 2025-08-30 13:43 | Outpatient (BNVA) | payer MEDICARE, MEDICAID, SELFPAY | PROVIDERS: PCP Internal Medicine; Visit Provider Internal Medicine Hypertension Specialist | DX: I13.0 Hypertensive heart and chronic kidney disease with heart failure and stage 1 through stage 4 chronic kidney disease, or unspecified chronic kidney disease (principal); E11.22 Type 2 diabetes mellitus with diabetic chronic kidney disease; N18.32 Chronic kidney disease, stage 3b; Z87.891 Personal history of nicotine dependence; Z79.84 Long term (current) use of oral hypoglycemic drugs; I50.20 Unspecified systolic (congestive) heart failure; N28.1 Cyst of kidney, acquired; Z79.82 Long term (current) use of aspirin | CPT/HCPCS: 99212 ==

== ENCOUNTER 2025-09-27 13:00 | Outpatient (AMB) | payer MEDICARE, MEDICAID, SELFPAY ==
[2025-09-27 13:23] VITALS: BP 126/62; PULSE 82; BMI 29.2
--- NOTE | 2025-09-27 13:23 | MHC.OFFVIS ---
Vital Signs 09/27/25 13:23 Height 5 ft 1 in Weight 154 lb 12.232 oz BMI 29.2 BP 126/62 Blood Pressure Location Lt brachial Position Sitting Pulse 82 Pulse Source Pulse Oximeter Intake Visit Reasons: 6 mth f/up Director Of Planning Required: No Accompanied by: Self / Same As Patient Allergies No Known Allergies (No Known Allergies*) Allergy (Verified 09/26/25 13:11) Medication List - Last Reconciled 09/27/25 by Benedicto Valencia NP aspirin 81 mg PO DAILY atorvastatin 40 mg PO DAILY 90 days blood sugar diagnostic (FreeStyle Lite Strips) Use to check fasting blood sugar every day blood-glucose meter (FreeStyle [place] Lite kit) Use to check fasting blood sugar every day blood-glucose sensor ([employer] G7 Sensor device) As directed blood-glucose,sander setter,cont (Dexcom G7 Electrical Troubleshooter) As directed empagliflozin (Jardiance) 25 mg PO DAILY famotidine 10 mg (1/2 x 20 mg) PO BID furosemide (Lasix) 20 mg PO DAILY PRN gabapentin 400 mg (4 x 100 mg) PO DAILY glipizide 5 mg PO BID 90 days isosorbide mononitrate ER 30 mg PO DAILY lancets (FreeStyle Lancets) Use to check fasting blood sugar every day metformin 500 mg PO DAILY metoprolol tartrate 12.5 mg (1/2 x 25 mg) PO BID nitroglycerin 0.4 mg sublingual Q5M PRN sacubitril-valsartan 24-26 mg 1 tab PO BID spironolactone 12.5 mg (1/2 x 25 mg) PO DAILY 90 days Held on 04/26/25. Instructions: Doctor's Order HPI Comments Details: This is an 80-year-old female patient coming in for a follow-up visit. Patient with a history of hypertension, hyperlipidemia, diabetes, coronary artery disease status post prior PCI RCA in 2012, and HFrEF. Patient also with history of lung cancer with metastasis to brain that was resected back in September of 2024 and is following regularly with Oncology at [facility]. Patient states that everything has been stable recently and is no longer on home O2. Patient is otherwise reporting feeling well overall without any reports of exertional chest pain, shortness of breath, palpitations, dizziness, orthopnea, PND, leg edema, presyncope, or syncope. Patient is reporting compliance with all her medications and has not had the need to use Lasix. [facility] Medical History Heart failure with reduced ejection fraction History of ST elevation myocardial infarction (STEMI) (~03/2013) On home O2 Personal history of nicotine dependence Malignant neoplasm of upper lobe of left lung (~2018) Tubular adenoma of colon COPD (chronic obstructive pulmonary disease) Exercise hypoxemia Emphysema lung DM2 (diabetes mellitus, type 2) HLD (hyperlipidemia) HTN (hypertension) PVD (peripheral vascular disease) CAD (coronary artery disease) Surgical History H/O brain surgery (~11/2024) History of cardiac cath (~03/2013) History of lung surgery (~03/2019) History of bronchoscopy (~03/2019) History of colonoscopy (~12/2019) Family History Mother No problems noted. Father No problems noted. Social History Housing: House Patient Tobacco Use Status: Former Tobacco user e-Cigarette/Vaping Use: Former Use service: No Current occupational status: retired Cognitive needs: Yes (walker) Hearing needs: No Vision needs: Yes (reading glasses) Review of Systems Const Denies daytime sleepiness, Denies difficulty sleeping, Denies snoring, Denies stops breathing during sleep and Denies weakness Card Denies chest pain, Denies rapid heart rate, Denies irregular heart rhythm, Denies claudication, Denies leg edema, Denies lightheadedness, Denies palpitations, Denies dyspnea, Reports dyspnea on exertion, Denies orthopnea, Denies paroxysmal nocturnal dyspnea and Denies slow heart rate Resp Denies cough, Denies dyspnea, Reports dyspnea on exertion and Denies snoring GI Reports no additional complaints, Denies hematochezia, Denies change in stool character and Denies dyspepsia Musc Denies abnormal gait, Denies muscle weakness and Denies numbness Neuro Denies abnormal gait, Denies numbness and Denies weakness Endo Denies palpitations Physical Exam Vital Signs: Last Vital Signs Pulse 82 09/27/25 13:23 BP 126/62 09/27/25 13:23 BMI result Body Mass Index 29.2 Const General: cooperative, healthy appearing, comfortable and no acute distress Orientation/consciousness: patient oriented x3 HEENT Head: Yes normal to inspection Neck Neck: Yes normal visual inspection, Yes trachea midline and Yes supple Chest Chest palpation & inspection: normal inspection of the chest Resp Effort & Inspection: normal respiratory effort Auscultation: clear to auscultation bilaterally, no crackles, no rales, no rhonchi and no wheezes Cardio Jugular venous distension: no JVD Palpation: normal PMI Rate: regular rate Rhythm: regular rhythm Heart sounds: S1 normal heart sound present, S2 normal heart sound present, no click, no gallops, no murmurs and no rubs Peripheral pulses: Peripheral pulses 2+ throughout GI Inspection: Yes normal to inspection Palpation (GI): Soft to palpation Auscultation: normal bowel sounds Skin General skin exam: no rashes or lesions noted Neuro General: patient oriented x3 Extrem General: Yes normal to inspection, No no pedal edema and No calf tenderness Psych Appearance: grossly normal Mental Status: mental status grossly normal Speech and movement: Normal speech and movement present Assessment & Plan Assessment & Plan (1) CAD (coronary artery disease): Code(s): I25.10 - Atherosclerotic heart disease of [place] coronary artery without angina pectoris Category: Medical Plan: History of coronary artery disease status post RCA PCI in 2012. Since patient has undergone a myocardial perfusion in 2021 that showed old infarct with no ischemia. Clinically stable and without any cardiac symptoms. Continue lifetime baby aspirin therapy. No reported signs of bleeding. Patient currently on 40 mg of atorvastatin. Most recent LDL at 94 not within goal of less than 70. We will increase atorvastatin to 80 mg and plan to repeat lipid profile in 3 months. (2) Heart failure with reduced ejection fraction: Code(s): I50.20 - Unspecified systolic (congestive) heart failure Category: Medical Plan: 03/03/2024-echo study showed decreased LV systolic function with the ejection fraction between 30 35%, akinetic inferior wall, mildly increased left ventricle cavity size, and mildly decreased RV systolic function. Clinically stable and euvolemic. Patient on diuretic therapy on an as-needed basis and patient states that she has not had to take this since her last office visit. Continue Jardiance, isosorbide, metoprolol, Entresto, and spironolactone therapy. Discussed signs and symptoms of heart failure to watch for. Advised on low-salt diet, daily weight monitoring, and compression socks as needed. We can update echo prior to next visit. (3) HTN (hypertension): Comment: BP today was 134/82 Code(s): I10 - Essential (primary) hypertension Category: Medical Qualifiers: Hypertension type: primary hypertension Qualified Code(s): I10 - Essential (primary) hypertension Plan: Blood pressure today is well-controlled. Continue current regimen with a blood pressure goal less than 130/80. Advised monitoring blood pressures at home. (4) HLD (hyperlipidemia): Comment: On Atorvastatin Code(s): E78.5 - Hyperlipidemia, unspecified Category: Medical Plan: As above. (5) DM2 (diabetes mellitus, type 2): Code(s): E11.9 - Type 2 diabetes mellitus without complications Category: Medical Plan: Continue aggressive diabetes management. A1c most recently improved at 6.7%. Followed by PCP. Advised on heart healthy diet, exercise as tolerated, med compliance, and management of vascular risk factors. Follow up in 6 months. In the interim, patient will call the office with any concerns or change in symptoms. This note was generated using voice recognition software. While every effort has been made to ensure accuracy and proper superintendent sanitation, there may be occasional errors that could affect the content or meaning of the described symptoms. Orders: Orders Lipid Panel 3 Months I25.10 - Atherosclerotic heart disease of [place] coronary artery without angina pectoris CA echo transthoracic complete 5 Months I50.20 - Unspecified systolic (congestive) heart failure Medications: New atorvastatin (Lipitor) 80 mg PO DAILY 90 tabs 3RF Coding Level of Care Code Est Pt Level 4 (62553) Complex visit Add On G2211 Diagnoses CAD (coronary artery disease) I25.10 Heart failure with reduced ejection fraction I50.20 Primary hypertension I10 Hypertension type: primary hypertension HLD (hyperlipidemia) E78.5 DM2 (diabetes mellitus, type 2) E11.9 Time Spent (min) 33 Comment Time spent in reviewing the chart, test results, assessment, counseling and documentation.
== END 2025-09-27 13:55 | disposition home or self-care (01) ==
LOC: HO.HCS 13:01
PROVIDERS: PCP Internal Medicine
DX: I25.10 Atherosclerotic heart disease of native coronary artery without angina pectoris (principal); I50.20 Unspecified systolic (congestive) heart failure; I10 Essential (primary) hypertension; E78.5 Hyperlipidemia, unspecified; E11.9 Type 2 diabetes mellitus without complications
CPT/HCPCS: 99214; G2211

== ENCOUNTER → 2025-09-27 13:00 | Outpatient (BNVA) | payer MEDICARE, MEDICAID, SELFPAY | PROVIDERS: PCP Internal Medicine | DX: I25.10 Atherosclerotic heart disease of native coronary artery without angina pectoris (principal); I50.20 Unspecified systolic (congestive) heart failure; I10 Essential (primary) hypertension; E78.5 Hyperlipidemia, unspecified; E11.9 Type 2 diabetes mellitus without complications | CPT/HCPCS: 99212 ==

== ENCOUNTER 2025-10-12 09:07 | Outpatient (REF) | payer MEDICARE, MEDICAID, SELFPAY ==
--- NOTE | ~2025-10-12 | MM_ITS ---
EXAMINATION: MM SCREENING DIGITAL BREAST TOMOSYNTHESIS, BILATERAL CLINICAL INFORMATION: Screening. Asymptomatic. COMPARISON: Mammography: Comparison is made with available priors TECHNIQUE: Digital breast mammography with tomosynthesis is performed in both the craniocaudal and mediolateral oblique views along with computer-aided detection (CAD). FINDINGS: There are scattered areas of fibroglandular density. There are no significant masses, abnormal calcifications, or other abnormalities. MM/MM tomosynthesis screening BI IMPRESSION: No mammographic evidence of malignancy. ASSESSMENT: BI-RADS Category 1: Negative RECOMMENDATION: Routine annual mammography screening. 1 year F/U This examination should not preclude the clinical evaluation of a suspicious palpable abnormality. This patient's information was entered into a reminder system with a target due date for their next mammogram. Electronically signed by: Raegan Guillermo DO 10/15/2025 05:47 PM [facility]
--- OUTSIDE RECORDS SUMMARY | 2025-10-12 09:37 | XMS_ITS | Clinical Summary ---
Author Organization [employer] [facility] Prior to 03/24/25 Address [address] [place] [address] Care Team Providers Care Financial Accounting Manager Name Role Phone Hayden Canchola MD Primary Care Provider [phone] Allergies No known active allergies Medications Medication [...] age to complete this topic Care Teams Financial Accounting Manager Relationship Specialty Start Date End Date Hayden Canchola MD [address] [place] [address] [place] [address] PCP - General Tipple Worker 06/02/19
--- OUTSIDE RECORDS SUMMARY | 2025-10-12 09:37 | XMS_ITS | Encounter Summary ---
Author Organization [facility] Address [address] [place] [address] Care Team Providers Care Medical Data Entry Clerk Name Role Phone [place] Portillo MD Primary Care Provider [phone] Encounter Details Date Type Department Care Team (Late st Contact Info) Description 12/08/2024 Lab Requisition [facility] - Main Lab [address] [facility] [place] [address] Christopher Rutledge MD [address] [place] [address] Encounter for other general examination Social History [...] Description 11/12/2025 10:00 AM EST Office Visit [facility] Hematology Oncology [address] [place] [address] Coleman Faye MD [address] [place] [address] documented as of this encounter [...] K/mcL LAB HEMETOLOGY METHOD 12/08/2024 10:[address] [facility] RBC 3.60(L) 3.80 - 4.80 M/mcL LAB HEMETOLOGY METHOD 12/08/2024 10:[address] [facility] Hemoglobin 10.8(L) 11.5 - 16.0 g/dL LAB HEMETOLOGY METHOD 12/08/2024 10:[address] [facility] Hematocrit 34.0(L) 35.0 - 47.0 % LAB HEMETOLOGY METHOD 12/08/2024 10:[address] [facility] MCV 95.2 79.0 - 98.0 FL LAB HEMETOLOGY METHOD 12/08/2024 10:[address] [facility] MCH 30.3 27.0 - 32.0 pcg LAB HEMETOLOGY METHOD 12/08/2024 10:[address] [facility] MCHC 31.8(L) 32.0 - 37.0 g/dL LAB HEMETOLOGY METHOD 12/08/2024 10:[address] [facility] RDW 14.6 11.0 - 15.0 % LAB HEMETOLOGY METHOD 12/08/2024 10:[address] [facility] Platelets 182 130 - 400 K/mcL LAB HEMETOLOGY METHOD 12/08/2024 10:[address] [facility] MPV 10.9 7.0 - 11.0 FL LAB HEMETOLOGY METHOD 12/08/2024 10:[address] [facility] NRBC 0.0 <1.0 % LAB HEMETOLOGY METHOD 12/08/2024 10:[address] [facility] NRBC Absolute 0.00 <0.10 K/mcL LAB HEMETOLOGY METHOD 12/08/2024 10:[address] [facility] Neutrophils Relative 83.0 % LAB HEMETOLOGY METHOD 12/08/2024 10:[address] [facility] Lymphocytes Relative 7.1 % LAB HEMETOLOGY METHOD 12/08/2024 10:[address] [facility] Monocytes Relative 7.5 % LAB HEMETOLOGY METHOD 12/08/2024 10:[address] [facility] Eosinophils Relative 0.0 % LAB HEMETOLOGY METHOD 12/08/2024 10:[address] [facility] Basophils Relative 0.4 % LAB HEMETOLOGY METHOD 12/08/2024 10:[address] [facility] Immature Granulocytes Relative 2.0 % LAB HEMETOLOGY METHOD 12/08/2024 10:[address] [facility] Neutrophils Absolute 6.98 1.50 - 7.00 K/mcL LAB HEMETOLOGY METHOD 12/08/2024 10:[address] [facility] Lymphocytes Absolute 0.60(L) 1.00 - 5.00 K/mcL LAB HEMETOLOGY METHOD 12/08/2024 10:[address] [facility] Monocytes Absolute 0.63 0.20 - 1.00 K/mcL LAB HEMETOLOGY METHOD 12/08/2024 10:[address] [facility] Eosinophils Absolute 0.00 0.00 - 0.50 K/[facility] LAB HEMETOLOGY METHOD 12/08/2024 10:23 AM EST [facility] Basophils Absolute 0.03 0.00 - 0.20 K/[facility] LAB HEMETOLOGY METHOD 12/08/2024 10:23 AM EST [facility] Immature Granulocytes Absolute 0.17(H) 0.00 - 0.03 K/[facility] LAB HEMETOLOGY METHOD 12/08/2024 10:23 AM EST [facility] Blood Venous blood specimen / Unknown Venipuncture / Unknown 12/08/2024 7:14 AM EST 12/08/2024 9:29 AM EST Christopher Rutledge MD LAB BLOOD ORDERABLES Final Res ult Performing Organization Address [facility]/ZIP Co de Phone Number [facility] [address] [place] [address], [place] [phone] * Magnesium (12/08/2024 7:14 AM EST) Magnesium 2.3 1.9 - 2.6 mg/dL LAB CHEMISTRY METHOD 12/08/2024 10:46 AM EST [facility] Blood Venous blood specimen / Unknown Venipuncture / Unknown 12/08/2024 7:14 AM EST 12/08/2024 9:29 AM EST Christopher Rutledge MD LAB BLOOD ORDERABLES Final Res ult [facility] [address] [place] [address], [place] [phone] * (ABNORMAL) Comprehensive metabolic panel (12/08/2024 7:14 AM EST) Sodium 139 133 - 145 mmol/L LAB CHEMISTRY METHOD 12/08/2024 10:48 AM EST [facility] Potassium 4.0 3.5 - 5.5 mmol/L LAB CHEMISTRY METHOD 12/08/2024 10:[address] [facility] Chloride 108 96 - 110 mmol/L LAB CHEMISTRY METHOD 12/08/2024 10:[address] [facility] CO2 24 21 - 32 mmol/L LAB CHEMISTRY METHOD 12/08/2024 10:[address] [facility] Anion Gap 7 3 - 11 LAB CHEMISTRY METHOD 12/08/2024 10:[address] [facility] Glucose 153(H) 70 - 100 mg/dL LAB CHEMISTRY METHOD 12/08/2024 10:[address] [facility] BUN 39(H) 5 - 25 mg/dL LAB CHEMISTRY METHOD 12/08/2024 10:[address] [facility] Creatinine 1.25(H) 0.50 - 1.10 mg/dL LAB CHEMISTRY METHOD 12/08/2024 10:[address] [facility] eGFR 44(L) >=60 mL/min/1. 73m2 LAB CHEMISTRY METHOD 12/08/2024 10:[address] [facility] Comment:Calculation based on the Chronic Kidney Disease Epidemiology Collaboration (CKD-EPI) equation refit without adjustment for race. BUN/Creatinine Ratio 31.2 LAB CHEMISTRY METHOD 12/08/2024 10:[address] [facility] Calcium 7.8(L) 8.5 - 10.5 mg/dL LAB CHEMISTRY METHOD 12/08/2024 10:[address] [facility] AST (SGOT) 17 10 - 42 unit/L LAB CHEMISTRY METHOD 12/08/2024 10:[address] [facility] ALT (SGPT) 22 10 - 60 unit/L LAB CHEMISTRY METHOD 12/08/2024 10:[address] [facility] Alkaline Phosphatase 89 42 - 121 unit/L LAB CHEMISTRY METHOD 12/08/2024 10:[address] [facility] Total Protein 5.0(L) 6.0 - 8.0 g/dL LAB CHEMISTRY METHOD 12/08/2024 10:48 AM EST [facility] Albumin 2.1(L) 3.2 - 5.0 g/dL LAB CHEMISTRY METHOD 12/08/2024 10:48 AM EST [facility] Total Bilirubin 0.3 0.0 - 1.4 mg/dL LAB CHEMISTRY METHOD 12/08/2024 10:48 AM EST [facility] Blood Venous blood specimen / Unknown Venipuncture / Unknown 12/08/2024 7:14 AM EST 12/08/2024 9:29 AM EST us Christopher Rutledge MD LAB BLOOD ORDERABLES Final Res ult [facility] [address] [place] [address], documented in this encounter Visit Diagnoses Diagnosis Encounter for other general examination documented in this encounter Additional Health Concerns Infection Onset Date Last Indicated Resolved Time Respiratory Rule-Out 01/31/2025 01/31/2025 025 7:39 PM EDT COVID-19 Rule-Out 01/31/2025 01/31/2025 01/31/2025 7:39 PM EDT documented as of this encounter Care Teams Medical Data Entry Clerk Relationship Specialty Start Date End Date Montana Portillo MD [address] [place] [address] PCP - General Internal Medicine 07/05/25 documented as of this encounter
--- OUTSIDE RECORDS SUMMARY | 2025-10-12 09:37 | XMS_ITS | Encounter Summary ---
Author Organization [facility] Address [address] [place] [address] Care Team Providers Care Residential Interior Designer Name Role Phone Montana Portillo MD Primary Care Provider [phone]- [phone] Encounter Details Date Type Department Care Team (Late st Contact Info) Description 12/17/2024 Lab Requisition [facility] - Main Lab [address] [facility] [place] [address] Christopher Rutledge MD [address] [place] [phone] Encounter for other general examination Social History [...] Description 11/12/2025 10:00 AM EST Office Visit [facility] Hematology Oncology [address] [place] [address] Coleman Faye MD [address] [place] [address] documented as of this encounter [...] K/mcL LAB HEMETOLOGY METHOD 12/17/2024 10:22 AM [facility] RBC 3.20(L) 3.80 - 4.80 M/mcL LAB HEMETOLOGY METHOD 12/17/2024 10:22 AM [facility] Hemoglobin 10.1(L) 11.5 - 16.0 g/dL LAB HEMETOLOGY METHOD 12/17/2024 10:22 AM [facility] LAB Hematocrit 32.8(L) 35.0 - 47.0 % LAB HEMETOLOGY METHOD 12/17/2024 10:22 AM [facility] MCV 102.8(H) 79.0 - 98.0 FL LAB HEMETOLOGY METHOD 12/17/2024 10:22 AM [facility] LAB MCH 31.7 27.0 - 32.0 pcg LAB HEMETOLOGY METHOD 12/17/2024 10:22 AM [facility] MCHC 30.8(L) 32.0 - 37.0 g/dL LAB HEMETOLOGY METHOD 12/17/2024 10:22 AM [facility] RDW 16.4(H) 11.0 - 15.0 % LAB HEMETOLOGY METHOD 12/17/2024 10:22 AM [facility] Platelets 177 130 - 400 K/mcL LAB HEMETOLOGY METHOD 12/17/2024 10:22 AM [facility] MPV 10.4 7.0 - 11.0 FL LAB HEMETOLOGY METHOD 12/17/2024 10:22 AM EST [facility] NRBC 0.0 <1.0 % LAB HEMETOLOGY METHOD 12/17/2024 10:22 AM EST [facility] NRBC Absolute 0.00 <0.10 K/mcL LAB HEMETOLOGY METHOD 12/17/2024 10:22 AM EST [facility] Blood Venous blood specimen / Unknown Venipuncture / Unknown 12/17/2024 5:42 AM EST 12/17/2024 9:08 AM EST us Christopher Rutledge MD LAB BLOOD ORDERABLES Final Res ult [facility] [address] [place] [address], [place] [phone] * (ABNORMAL) Basic metabolic panel (12/17/2024 5:42 AM EST) Sodium 139 133 - 145 mmol/L LAB CHEMISTRY METHOD 12/17/2024 10:17 AM [facility] Potassium 5.2 3.5 - 5.5 mmol/L LAB CHEMISTRY METHOD 12/17/2024 10:17 AM [facility] Chloride 110 96 - 110 mmol/L LAB CHEMISTRY METHOD 12/17/2024 10:17 AM [facility] CO2 26 21 - 32 mmol/L LAB CHEMISTRY METHOD 12/17/2024 10:17 AM [facility] Anion Gap 3 3 - 11 LAB CHEMISTRY METHOD 12/17/2024 10:17 AM [facility] Glucose 104(H) 70 - 100 mg/dL LAB CHEMISTRY METHOD 12/17/2024 10:17 AM [facility] BUN 38(H) 5 - 25 mg/dL LAB CHEMISTRY METHOD 12/17/2024 10:17 AM [facility] Creatinine 1.37(H) 0.50 - 1.10 mg/dL LAB CHEMISTRY METHOD 12/17/2024 10:17 AM [facility] LAB eGFR 39(L) >=60 mL/min/1. 73m2 LAB CHEMISTRY METHOD 12/17/2024 10:17 AM [facility] Comment:Calculation based on the Chronic Kidney Disease Epidemiology Collaboration (CKD-EPI) equation refit without adjustment for race. BUN/Creatinine Ratio 27.7 LAB CHEMISTRY METHOD 12/17/2024 10:17 AM [facility] Calcium 7.8(L) 8.5 - 10.5 mg/dL LAB CHEMISTRY METHOD 12/17/2024 10:17 AM [facility] Blood Venous blood specimen / Unknown Venipuncture / Unknown 12/17/2024 5:42 AM EST 12/17/2024 9:08 AM EST us Christopher Rutledge MD LAB BLOOD ORDERABLES Final Res ult [facility] [address] [place] [address], documented in this encounter Visit Diagnoses Diagnosis Encounter for other general examination documented in this encounter Additional Health Concerns Infection Onset Date Last Indicated Resolved Time Respiratory Rule-Out 01/31/2025 01/31/2025 025 7:39 PM EDT COVID-19 Rule-Out 01/31/2025 01/31/2025 01/31/2025 7:39 PM EDT documented as of this encounter Care Teams Residential Interior Designer Relationship Specialty Start Date End Date Montana Portillo MD [facility] [address] [place] [address] [address] [place] [address] PCP - General Internal Medicine 07/05/25 documented as of this encounter
--- OUTSIDE RECORDS SUMMARY | 2025-10-12 09:37 | XMS_ITS | Clinical Summary ---
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 g 06/16/2019 Assessment & Plan (07/12/2025 2:24 PM [...] Description 08/13/2025 10:00 AM EDT Office Visit [facility] Hematology Oncology [address] [place] [address] Coleman Faye MD Metastasis to brain (CMS/HCC V24, CMS/HCC V28) (Primary Dx); Primary adenocarcinoma of upper lobe of left lung (CMS/HCC V24, CMS/HCC V28) 07/20/2025 12:15 PM EDT - 07/20/2025 11:59 PM EDT Hospital Encounter [facility] MRI [address] [place] [id number] Metastasis to brain ([facility]/HCC V24, [facility]/HCC V28) Discharge Disposition: Home or Self Care from Last 3 Months Surgical History Surgery Date Site/Laterality Comments CRANIOTOMY 12/03/2024 Right Suboccipital for tumor OTHER SURGICAL HISTORY 04/20/2019 Left Left Lingular segmentectomy Medical History Medical History Date Comments Cancer ([facility]/HCC V24, [facility]/HCC V28) 04/20/2019 left lingular Social History Tobacco [...] Orientation Straight 01/31/2025 12 :19 PM EDT Last Filed Vital Signs Vital Sign Reading [...] Description 11/12/2025 10:00 AM EST Office Visit [facility] Hematology Oncology [address] [place] [address] Coleman Faye MD [address] [place] [address] Health Maintenance Due Date Last [...] Metastasis to brain (CMS/HCC V24, CMS/HCC V28) BASIC METABOLIC PANEL Routine 02/07/2025 6:07 AM [...] Signed Date: 07/20/2025 14:09 ET Workstation ID: [id number] Transcribed By: Self Edit Transcribed Date: 07/20/2025 [...] mass effect upon adjacent structures (series 10 [id number] and series 1000 image 125), not seen [...] Signed Date: 07/20/2025 14:09 ET Workstation ID: [id number] Transcribed By: Self Edit Transcribed Date: 07/20/2025 13:45 ET us Coleman Faye MD IM MRI PROCEDURES Final Re sult * (ABNORMAL) Basic metabolic panel (02/07/2025 6:07 AM EDT) Sodium 138 133 - 145 mmol/L LAB CHEMISTRY METHOD 02/07/2025 7:39 AM [facility] Potassium 4.1 3.5 - 5.5 mmol/L LAB CHEMISTRY METHOD 02/07/2025 7:39 AM [facility] LAB Chloride 105 96 - 110 mmol/L LAB CHEMISTRY METHOD 02/07/2025 7:39 AM [facility] LAB CO2 22 21 - 32 mmol/L LAB CHEMISTRY METHOD 02/07/2025 7:39 AM [facility] LAB Anion Gap 11 3 - 11 LAB CHEMISTRY METHOD 02/07/2025 7:39 AM [facility] LAB Glucose 147(H) 70 - 100 mg/dL LAB CHEMISTRY METHOD 02/07/2025 7:39 AM [facility] LAB BUN 25 5 - 25 mg/dL LAB CHEMISTRY METHOD 02/07/2025 7:39 AM [facility] LAB Creatinine 1.61(H) 0.50 - 1.10 mg/dL LAB CHEMISTRY METHOD 02/07/2025 7:39 AM [facility] LAB eGFR 32(L) >=60 mL/min/1. 73m2 LAB CHEMISTRY METHOD 02/07/2025 7:39 AM [facility] LAB Comment:Calculation based on the Chronic Kidney Disease Epidemiology Collaboration (CKD-EPI) equation refit without adjustment for race. BUN/Creatinine Ratio 15.5 LAB CHEMISTRY METHOD 02/07/2025 7:39 AM [facility] LAB Calcium 8.2(L) 8.5 - 10.5 mg/dL LAB CHEMISTRY METHOD 02/07/2025 7:39 AM [facility] LAB Blood Venous blood specimen / Unknown Venipuncture / Unknown 02/07/2025 6:07 AM EDT 02/07/2025 7:07 AM EDT us Ekta Chapin MD LAB BLOOD ORDERABLES Final Resul t [facility] [address] [place] [address], [place] [phone] from Last 3 Months or Most Recently Relevant to Health Maintenance Insurance [place] - [place] MEDICARE Advance Directives Documents on File Type Date Recorded Patient Vocational Examiner Expl anation Advance Directives and Living Will [...] Agents on File Name Relationship Healthcare Agent [facility]ian [facility] Care Agent Care Teams Sand Bobber Relationship Specialty Start Date End Date Montana Portillo MD [facility] [address] [place] [address] [address] [place] [address] PCP - General Internal Medicine 07/05/25
--- OUTSIDE RECORDS SUMMARY | 2025-10-12 09:37 | XMS_ITS | Patient Health Record ---
Author Organization [facility] Address [address] [place] [address] Care Team Providers Care Shuttle Veneering Supervisor Name Role Phone Jesika (RETIRED) Hayden BULLOCK Primary Care Provide r Unavailable Tonny Avendano Jr Unavailable Coleman Faye Unavailable Unavailable Reason For Referral No Information Medications Medication SIG (Take, Route, Frequency, Duration) Notes Start Date End Date Status Isosorbide Dinitrate 30 MG Tablet 1 tablet Orally Twice a day Active Aspirin 81 MG Tablet Chewable 1 tablet Orally Once a day Active Gabapentin 100 MG Capsule 1 capsule Orally twice a day Active amLODIPine Besylate 5 MG Tablet 1 tablet Orally Once a day Active Simvastatin 80 MG Tablet 1 tablet in the evening Orally Once a day Active metFORMIN HCl 500 MG Tablet 1 tablet with meals Orally Twice a day Active Metoprolol Tartrate 50 MG Tablet 1 tablet Orally every 12 hrs Active Januvia 100 MG Tablet 1 tablet Orally On ce a day; Duration: 30 day(s) Active Clopidogrel Bisulfate 75 MG Tablet 1 tablet Orally Once a day Active MiraLax (colon prep) 8.3 ounce ((238) grams mixed with Gatorade or Crystal Light orally begin at 5:00 p.m. the day before the procedure; Duration: 1 day 08/31/2019 Active Folic Acid Not-Takin g/PRN glipiZIDE XL 2.5 MG Tablet Extended Release 24 Hour 1 tablet with breakfast Orally Once a day; Duration: 30 day(s) Active Nitroglycerin 0.4 MG Tablet Sublingual 1 Sublingual prn Active Social History Social History Additional Details Category Social Info Options Details Miscellaneous: Marital status: single Occupation: retired Problems Problem Type SNOMED Code ICD Code Onset Dates Problem Status W/U Status Risk Notes Problem Abnormal PET scan of colon (R94.8) Active confirmed Plan Of Treatment Future Test Test Name Order Date COLONOSCOPY 06/06/2015 COLONOSCOPY 08/31/2019 Insurance Providers Payer Name Payer Address Payer Phone Subscriber Number Group Number Insured Name Patient Relationship to Insured Coverage Start Date Coverage End Date MEDICARE OF [place] [address] [place] [address] [phone] [id number] GISELE FRANCISCO Self - patient is the insured [facility] [address] [place] [address] [id number] GISELE FRANCISCO Self - patient is the insured Medical (General) History Medical History History ICD Code colonoscopy 10/11/15, small tubular reyna krishna hypertension elevated Cholesterol coronary artery disease with history of [place], 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 Hope 03/2019
--- OUTSIDE RECORDS SUMMARY | 2025-10-12 09:37 | XMS_ITS | Clinical Summary ---
Author Organization [facility] Address [address] [place] [address] Phone Care Team Providers Care Industrial Maintenance Millwright Name Role Phone Hayden Canchola MD Primary Care Provider [phone] Allergies No known active allergies Medications aspirin [...] age to complete this topic [place] Care Teams Industrial Maintenance Millwright Relationship Specialty Start Date End Date Hayden Canchola MD [address] [place] [address] [address] [place], [place] PCP - General Internal Medicine 06/11/21
== END 2025-10-12 09:08 | disposition home or self-care (01) ==
LOC: HO.MAMMO 09:07
PROVIDERS: PCP Physician Assistant Medical; Visit Provider Physician Assistant Medical
DX: Z12.31 Encounter for screening mammogram for malignant neoplasm of breast (principal)
CPT/HCPCS: 77063; 77067

== ENCOUNTER → 2025-10-12 09:30 | Outpatient (BNV) | payer MEDICARE, MEDICAID, SELFPAY | PROVIDERS: PCP Physician Assistant Medical; Visit Provider Internal Medicine | DX: Z12.31 Encounter for screening mammogram for malignant neoplasm of breast (principal) | CPT/HCPCS: 77063; 77067 ==